=== PATIENT | female | born 1970 | race Caucasian/White ===

== ENCOUNTER 2018-12-21 00:53 | Inpatient (IN) | payer OTHER ==
[2018-12-21 00:53] VITALS: BMI 33.0
--- NOTE | 2018-12-21 01:10 | C.PDOC ---
History Of Present Illness Pt presents with abd pain, nausea and vomiting which started a few hours ago. No f/c. Pt found to be tachycardic, hypertensive. States she has not take her thyroid medication for about 3 weeks. Denies any chest pain or palpitations. Time Seen by Provider: 12/21/18 01:08 Chief Complaint (Nursing): Abdominal Pain History Per: Patient History/Exam Limitations: no limitations Onset/Duration Of Symptoms: Hrs Current Symptoms Are (Timing): Still Present Context: Other Severity: Moderate Pain Scale Rating Of: 5 Location Of Pain/Discomfort: Diffuse Radiation Of Pain To:: None Quality Of Discomfort: Dull, Cramping Associated Symptoms: Nausea, Vomiting. denies: Fever, Chills Exacerbating Factors: None Alleviating Factors: None Last Bowel Movement: Today Recent travel outside of the [place]: No Additional History Per: Family Abnormal Vaginal Bleeding: No Past Medical History Reviewed: Historical Data, Nursing Documentation, Vital Signs Vital Signs: Last Vital Signs Temp 97.6 F 12/21/18 01:04 Pulse 154 H 12/21/18 01:04 Resp 16 12/21/18 01:04 BP 186/131 H 12/21/18 01:04 Pulse Ox 96 12/21/18 01:04 - Medical History PMH: Anxiety, Asthma, Graves' Disease, HTN, Hyperthyroidism, Hypothyroidism Denies: Chronic Kidney Disease Family History: States: No Known Family Hx - Social History Hx Tobacco Use: No Hx Alcohol Use: No Hx Substance Use: No - Immunization History Hx Tetanus Toxoid Vaccination: No Hx Influenza Vaccination: No Hx Pneumococcal Vaccination: No Review Of Systems Constitutional: Negative for: Fever, Chills Eyes: Negative for: Vision Change ENT: Negative for: Throat Pain Cardiovascular: Negative for: Chest Pain, Palpitations Respiratory: Negative for: Shortness of Breath Gastrointestinal: Positive for: Nausea, Vomiting, Abdominal Pain Genitourinary: Negative for: Dysuria Musculoskeletal: Negative for: Back Pain Skin: Negative for: Rash Neurological: Negative for: Weakness Psych: Negative for: Anxiety Physical Exam - Physical Exam Appears: In Acute Distress Skin: Warm, Dry, Pale Head: Normacephalic Eye(s): bilateral: Normal Inspection Oral Mucosa: Moist Lips: Normal Appearing Neck: Trachea Midline, Supple Chest: Symmetrical Cardiovascular: Rhythm Regular (tachy) Respiratory: No Rales, No Rhonchi, No Wheezing Gastrointestinal/Abdominal: Bowel Sounds (tympanic), Soft, Tenderness, Distention, No Guarding, No Rebound Back: No CVA Tenderness Extremity: Normal ROM Extremity: Bilateral: Atraumatic Pulses: Left Dorsalis Pedis: Normal, Right Dorsalis Pedis: Normal Neurological/Psych: Oriented x3 Gait: Unable To Assess ED Course And Treatment - Laboratory Results Result Diagrams: 12/21/18 01:30 12/21/18 01:30 ECG: Interpreted By Me, Viewed By Me ECG Rhythm: Sinus Tachycardia (156), Nonspecific Changes O2 Sat by Pulse Oximetry: 96 Pulse Ox Interpretation: Normal - Radiology CXR: Interpreted by Me, Viewed By Me CXR Interpretation: No: Infiltrates, Fracture, Pnemothorax - CT Scan/US CT head Other Rad Studies (CT/US): Read By Radiologist, Radiology Report Reviewed CT/US Interpretation: CT SCAN OF THE BRAIN WITHOUT IV CONTRAST. CLINICAL INDICATION: Hypertensive urgency. TECHNIQUE: Axial and reformatted sagittal and coronal images of the brain obtained without IV contrast administration. Normal size of the ventricles and extra-axial spaces for the patient's age. Normal white matter tracts of the supratentorial brain. Normal basal ganglia and thalami. Normal brainstem. Normal cerebellum. There is no demonstrated extra-axial, intraparenchymal, or intraventricular hemorrhage. There are no findings of an acute ischemic infarction. Normal calvarium. There is no demon strated fracture. Normal soft tissue structures. Normal visualized paranasal sinuses. IMPRESSION: Normal unenhanced CT scan of the brain. . Electronically signed on Dec 21, 2018 4:14:05 AM EDT by: Tiesha Wright M.D., Certified by ABR, MSK, Neuroradiology. Progress Note: pt dropped bp after labetolol. No cp. Increased iv fluids. Glucagon given. continuing to monitor. Very hyperthyroid/storm. 2:47 bp improved 90/60. spoke with dr sadler,icu, will see the pt in the ed. 3:40 pt bright down and lost pulse cpr initiated. I've intubated her with 7.5 ett. one ep i. 3:46 ROSC parents at bedside. Critical Care Time - Critical Care Note Total Time (in mins): 30 Documented critical care: time excludes all time spent performing seperately billable procedures. Disposition Discussed With : Wally Nunez Comment: accepted the pt on his service and took over the care at 3AM Doctor Will See Patient In The: ED Counseled Patient/Family Regarding: Studies Performed, Diagnosis - Disposition Disposition: HOSPITALIZED Disposition Time: 01:10 Condition: CRITICAL - Clinical Impression Clinical Impression: Abdominal pain, Nausea, Thyrotoxicosis, Sinus tachycardia, Headache, Cardiac arrest Decision To Admit - Pt Status Changed To: Hospital Disposition Of: Inpatient - Admit Certification Admit to Inpatient:: After my assessment, the patient will require hospitalization for at least two midnights. This is because of the severity of symptoms shown, intensity of services needed, and/or the medical risk in this patient being treated as an outpatient. - InPatient: Physician Admission Certification:: After my assessment, the patient will require hospitalization for at least two midnights. This is because of the severity of symptoms shown, intensity of services needed, and/or the medical risk in this patient being treated as an outpatient. - . Bed Request Type: ICU Admitting Physician: Wally Nunez Patient Diagnosis: Abdominal pain, Nausea, Thyrotoxicosis, Sinus tachycardia, Headache, Cardiac arrest
[2018-12-21] MEDS ORDERED: Sodium Chloride 0.9% 1,000 ML IV ONE (01:11)
[2018-12-21] MEDS ORDERED: Sodium Chloride 0.9% 1,000 ML ONE (01:28)
[2018-12-21 01:35] LABS: BASO % 0.3 % (0.0-2.0); EOS # 0.1 K/uL (0.0-0.7); EOS % 1.1 % (0.0-4.0); HEMOGLOBIN 12.7 g/dL (11.0-16.0); LYMPH # 2.6 K/uL (1.0-4.3); LYMPH % 34.8 % (20.0-40.0); MEAN CELL VOLUME 87.6 fL (81.0-99.0); MEAN CORPUSCULAR HEMOGLOBIN 28.7 pg (27.0-31.0); MEAN CORPUSCULAR HGB CONC 32.7 g/dL (33.0-37.0); MONO # 0.6 K/uL (0.0-0.8); MONO % 8.3 % (0.0-10.0); NEUT # 4.1 K/uL (1.8-7.0); NEUT % 55.5 % (50.0-75.0); NRBC % 0.1 % (0.0-2.0); RBC 4.44 Mil/uL (3.80-5.20); RED CELL DISTRIBUTION WIDTH 14.6 % (11.5-14.5); WHITE BLOOD COUNT 7.4 K/uL (4.8-10.8)
[2018-12-21] MEDS ORDERED: Labetalol 25mg/5ml Syringe IVP STA (01:35)
[2018-12-21 01:43] LABS: INR 1.3
[2018-12-21] MEDS ORDERED: Labetalol 5mg/ml (4ml) ONE (01:44)
[2018-12-21 01:49] LABS: ALBUMIN 3.7 g/dL (3.5-5.0); ALT/SGPT 24 U/L (9-52); AST/SGOT 43 U/L (14-36); BLOOD UREA NITROGEN 8 mg/dL (7-17); CALCIUM 8.9 mg/dl (8.6-10.4); GFR NON-AFRICAN AMERICAN > 60; LIPASE 31 U/L (23-300)
[2018-12-21 01:59] LABS: URINE CLARITY Hazy (Clear); URINE COLOR YELLOW (YELLOW)
[2018-12-21 02:00] LABS: PH,URINE 5.5 (5.0-8.0); SQUAMOUS EPITHIAL 3 /hpf (0-5); URINE BILIRUBIN NEGATIVE (NEGATIVE); URINE BLOOD SMALL (NEGATIVE); URINE GLUCOSE (UA) NEGATIVE (Normal); URINE HYALINE CAST 4 /lpf (0-2); URINE LEUKOCYTE ESTERASE NEGATIVE Leu/uL (Negative); URINE PROTEIN NEGATIVE (NEGATIVE); URINE UROBILINOGEN 0.2 mg/dL (0.2-1.0)
[2018-12-21 02:01] LABS: B-TYPE NATRIURETIC PEPTIDE 459 pg/mL (0-450)
[2018-12-21] MEDS ORDERED: Glucagon Recombinant 1 mg Inj IV STA (02:22)
[2018-12-21] MEDS ORDERED: Glucagon Recombinant 1 mg Inj ONE (02:40)
--- NOTE | 2018-12-21 04:01 | CP.CCUPN ---
CCU Subjective - Physician Review Subjective (Free Text): 12/21/18 07:05 The patient was Seen and examined by me at the bedside during ICU round, Medical records reviewed and Management issues were discussed and formulated with the house staff. Events reviewed 46 Years old Female with PMHx of hypertension, hypothyroid and mini stroke in the past Who presented to the emergency room with complaint of nausea, vomiting and severe abdominal pain few hours before coming to the emergency room, as per family she was in her normal state of health when she went to sleep her only complaint was body ache and joint pain, when the EMS came in to see the patient her blood pressure was over 200 and upon arrival to the ER her pulse was 154 heart rate, BP of 186/31, she was afebrile, not tachypneic and adequately saturating. Upon arrival to the emergency room she was alert awake oriented x3, but she was uncomfortable and in acute distress Labs were significant for normal chemistry, normal renal function and very low third-generation TSH below 0.02 Patient had received 20 mg IV labetalol stat at 1:35 and 40 mg p.o. Indral stat at 1:37 and was sent Head CT scan that was negative for intracranial bleed ICU evaluation was done and patient was accepted to the intensive care unit While the patient in the process of getting transferred to the intensive care unit she became bradycardic heart rate slowed down and she became unresponsive, CODE BLUE was called patient received 1 round of epinephrine then regain return of spontaneous circulation in 3-4 minutes. She was orally intubated and mechanically ventilated Post intubation chest x-ray reviewed endotracheal tube is in good position, no infiltrate, no pneumothorax Patient was admitted to the intensive care unit hemodynamically stable, patient starting to wake up anxious pulling tubes and line and she received 2 mg Ativan In the ICU two more episodes of cardiac arrest were called also for 3-4 minutes then she regained pulse, during the cardiac arrest right femoral central line was placed under sterile techniques and right femoral A-line was attempted but was unsuccessful I performed stat bedside echo was done shows severely diminished LV function, RV is severely dilated raises a suspicious for acute pulmonary embolism, I did not appreciate any pericardial or pleural effusion With started the patient on IV heparin bolus then heparin drip Patient is very unstable to be sent for any further CT scans All labs was sent and repeated including, Trop, ABG and full Thyroid panel. Endocrine consult called and the case was discussed with Dr.Cam BAÑUELOS with severe metabolic acidosis high lactate and very low bicarb Administered 4 amp of sodium bicarb 1 amp of calcium gluconate 1 amp of dextrose PMHx- HTN, Hyperthyroidism, mini stroke PSHx-None Family Hx- Maternal grandfather had testicular cancer, grandmother had a CVA, Mother and several other family members have DM Social - Denies ever smoking, drinks socially, denies drug use Meds- Methimazole 10mg TID, Metoprolol 50mg ER Allergies- None PMD- Dr. Finch Further sister information obtained from the sister, the patient has cardiac condition diagnosed couple of years ago and she has not had been taking medication or have been regularly seeing her doctor also she was told at one point she seen need to see a pizza chef but she has not done that. Old echocardiogram reviewed, It does show normal ejection fraction, moderate pulmonary hypertension 12/25/18 13:00 CCU Objective - Vital Signs / Intake & Output Vital Signs (Last 4 hours): Vital Signs Temp Pulse Resp BP Pulse Ox 12/21/18 03:52 96 12/21/18 03:33 110 H 25 H 178/154 H 98 12/21/18 02:41 122 H 26 H 93/71 L 99 12/21/18 02:22 120 H 24 55/37 L 97 12/21/18 01:39 152 H 29 H 175/113 H 99 12/21/18 01:04 97.6 F 154 H 16 186/131 H 96 Intake and Output (Last 8hrs): Intake & Output 12/20/18 12/20/18 12/21/18 14:59 22:59 06:59 Weight 156 lb - Physical Exam Physical Exam Limitations: Positive for: Altered Mental Status, Clinical Condition Head: Positive for: Atraumatic, Normocephalic Pupils: Positive for: PERRL, Sluggish. Negative for: Non-Reactive, Pinpoint Extroacular Muscles: Positive for: EOMI. Negative for: Gaze Palsy Conjunctiva: Positive for: Normal. Negative for: Injected, Icteric Mouth: Positive for: Moist Mucous Membranes Neck: Positive for: Normal Range of Motion, Trachea Midline. Negative for: Meningeal Signs, MIDLINE TENDERNESS, Paraspinal Tenderness, JVD, Lymphadenopathy, Bruit, Other Respiratory/Chest: Positive for: Good Air Exchange. Negative for: Respiratory Distress, Accessory Muscle Use, Decreased Breath Sounds, Rales, Retracting, Rhonchi Cardiovascular: Positive for: Regular Rate and Rhythm, Normal S1, S2, Peripheal Pulses Present. Negative for: Murmurs, Irregular Rhythm Abdomen: Positive for: Normal Bowel Sounds. Negative for: Tenderness, Distention, Peritoneal Signs, Rebound, Guarding, McBurney's Point Tender Psychiatric: Negative for: Alert, Oriented x 3 - Patient Studies Lab Studies: Lab Studies 12/21/18 12/21/18 12/21/18 Range/Units 01:30 01:30 01:30 WBC 7.4 (4.8-10.8) K/uL RBC 4.44 (3.80-5.20) Mil/uL Hgb 12.7 (11.0-16.0) g/dL Hct 38.9 (34.0-47.0) % MCV 87.6 (81.0-99.0) fL MCH 28.7 (27.0-31.0) pg MCHC 32.7 L (33.0-37.0) g/dL RDW 14.6 H (11.5-14.5) % Plt Count 199 (130-400) K/uL MPV 9.0 (7.2-11.7) fL Neut % (Auto) 55.5 (50.0-75.0) % Lymph % (Auto) 34.8 (20.0-40.0) % Long % (Auto) 8.3 (0.0-10.0) % Eos % (Auto) 1.1 (0.0-4.0) % Baso % (Auto) 0.3 (0.0-2.0) % Neut # (Auto) 4.1 (1.8-7.0) K/uL Lymph # (Auto) 2.6 (1.0-4.3) K/uL Long # (Auto) 0.6 (0.0-0.8) K/uL Eos # (Auto) 0.1 (0.0-0.7) K/uL Baso # (Auto) 0.0 (0.0-0.2) K/uL PT 14.0 H (9.7-12.2) SECONDS INR 1.3 APTT 37 H (21-34) SECONDS Sodium 139 (132-148) mmol/L Potassium 3.9 (3.6-5.2) mmol/L Chloride 109 H (98-107) mmol/L Carbon Dioxide 18 L (22-30) mmol/L Anion Gap 17 (10-20) BUN 8 (7-17) mg/dL Creatinine 0.3 L (0.7-1.2) mg/dL Est GFR ( Amer) > 60 Est GFR (Non-Af Amer) > 60 Random Glucose 152 H D (65-105) mg/dL Calcium 8.9 (8.6-10.4) mg/dl Total Bilirubin 0.6 (0.2-1.3) mg/dL AST 43 H (14-36) U/L ALT 24 (9-52) U/L Alkaline Phosphatase 144 H (38-126) U/L Troponin I 0.0420 (0.00-0.120) ng/mL NT-Pro-B Natriuret Pep 459 H (0-450) pg/mL Total Protein 7.4 (6.3-8.3) g/dL Albumin 3.7 (3.5-5.0) g/dL Globulin 3.8 (2.2-3.9) gm/dL Albumin/Globulin Ratio 1.0 (1.0-2.1) Lipase 31 (23-300) U/L TSH 3rd Generation < 0.02 L (0.46-4.68) mIU/L Urine Color (YELLOW) Urine Clarity (Clear) Urine pH (5.0-8.0) Ur Specific [place] (1.003-1.030) Urine Protein (NEGATIVE) mg/dL Urine Glucose (UA) (Normal) mg/dL Urine Ketones (NEGATIVE) mg/dL Urine Blood (NEGATIVE) Urine Nitrate (NEGATIVE) Urine Bilirubin (NEGATIVE) Urine Urobilinogen (0.2-1.0) mg/dL Ur Leukocyte Esterase (Negative) Jyoti/uL Urine WBC (Auto) (0-5) /hpf Urine RBC (Auto) (0-3) /hpf Ur Squamous Epith Cells (0-5) /hpf Hyaline Casts (0-2) /lpf 12/21/18 Range/Units 01:11 WBC (4.8-10.8) K/uL RBC (3.80-5.20) Mil/uL Hgb (11.0-16.0) g/dL Hct (34.0-47.0) % MCV (81.0-99.0) fL MCH (27.0-31.0) pg MCHC (33.0-37.0) g/dL RDW (11.5-14.5) % Plt Count (130-400) K/uL MPV (7.2-11.7) fL Neut % (Auto) (50.0-75.0) % Lymph % (Auto) (20.0-40.0) % Long % (Auto) (0.0-10.0) % Eos % (Auto) (0.0-4.0) % Baso % (Auto) (0.0-2.0) % Neut # (Auto) (1.8-7.0) K/uL Lymph # (Auto) (1.0-4.3) K/uL Long # (Auto) (0.0-0.8) K/uL Eos # (Auto) (0.0-0.7) K/uL Baso # (Auto) (0.0-0.2) K/uL PT (9.7-12.2) SECONDS INR APTT (21-34) SECONDS Sodium (132-148) mmol/L Potassium (3.6-5.2) mmol/L Chloride (98-107) mmol/L Carbon Dioxide (22-30) mmol/L Anion Gap (10-20) BUN (7-17) mg/dL Creatinine (0.7-1.2) mg/dL Est GFR ( Amer) Est GFR (Non-Af Amer) Random Glucose (65-105) mg/dL Calcium (8.6-10.4) mg/dl Total Bilirubin (0.2-1.3) mg/dL AST (14-36) U/L ALT (9-52) U/L Alkaline Phosphatase (38-126) U/L Troponin I (0.00-0.120) ng/mL NT-Pro-B Natriuret Pep (0-450) pg/mL Total Protein (6.3-8.3) g/dL Albumin (3.5-5.0) g/dL Globulin (2.2-3.9) gm/dL Albumin/Globulin Ratio (1.0-2.1) Lipase (23-300) U/L TSH 3rd Generation (0.46-4.68) mIU/L Urine Color Yellow (YELLOW) Urine Clarity Hazy (Clear) Urine pH 5.5 (5.0-8.0) Ur Specific [place] 1.030 (1.003-1.030) Urine Protein Negative (NEGATIVE) mg/dL Urine Glucose (UA) Negative (Normal) mg/dL Urine Ketones Negative (NEGATIVE) mg/dL Urine Blood Small (NEGATIVE) Urine Nitrate Negative (NEGATIVE) Urine Bilirubin Negative (NEGATIVE) Urine Urobilinogen 0.2 (0.2-1.0) mg/dL Ur Leukocyte Esterase Negative (Negative) Jyoti/uL Urine WBC (Auto) 3 (0-5) /hpf Urine RBC (Auto) 4 H (0-3) /hpf Ur Squamous Epith Cells 3 (0-5) /hpf Hyaline Casts 4 (0-2) /lpf Laboratory Results - last 24 hr 12/21/18 12/21/18 12/21/18 01:11 01:30 01:30 WBC 7.4 RBC 4.44 Hgb 12.7 Hct 38.9 MCV 87.6 MCH 28.7 MCHC 32.7 L RDW 14.6 H Plt Count 199 MPV 9.0 Neut % (Auto) 55.5 Lymph % (Auto) 34.8 Long % (Auto) 8.3 Eos % (Auto) 1.1 Baso % (Auto) 0.3 Neut # (Auto) 4.1 Lymph # (Auto) 2.6 Long # (Auto) 0.6 Eos # (Auto) 0.1 Baso # (Auto) 0.0 PT 14.0 H INR 1.3 APTT 37 H Sodium Potassium Chloride Carbon Dioxide Anion Gap BUN Creatinine Est GFR ( Amer) Est GFR (Non-Af Amer) Random Glucose Calcium Total Bilirubin AST ALT Alkaline Phosphatase Troponin I NT-Pro-B Natriuret Pep Total Protein Albumin Globulin Albumin/Globulin Ratio Lipase TSH 3rd Generation Urine Color Yellow Urine Clarity Hazy Urine pH 5.5 Ur Specific [place] 1.030 Urine Protein Negative Urine Glucose (UA) Negative Urine Ketones Negative Urine Blood Small Urine Nitrate Negative Urine Bilirubin Negative Urine Urobilinogen 0.2 Ur Leukocyte Esterase Negative Urine WBC (Auto) 3 Urine RBC (Auto) 4 H Ur Squamous Epith Cells 3 Hyaline Casts 4 12/21/18 01:30 WBC RBC Hgb Hct MCV MCH MCHC RDW Plt Count MPV Neut % (Auto) Lymph % (Auto) Long % (Auto) Eos % (Auto) Baso % (Auto) Neut # (Auto) Lymph # (Auto) Long # (Auto) Eos # (Auto) Baso # (Auto) PT INR APTT Sodium 139 Potassium 3.9 Chloride 109 H Carbon Dioxide 18 L Anion Gap 17 BUN 8 Creatinine 0.3 L Est GFR ( Amer) > 60 Est GFR (Non-Af Amer) > 60 Random Glucose 152 H D Calcium 8.9 Total Bilirubin 0.6 AST 43 H ALT 24 Alkaline Phosphatase 144 H Troponin I 0.0420 NT-Pro-B Natriuret Pep 459 H Total Protein 7.4 Albumin 3.7 Globulin 3.8 Albumin/Globulin Ratio 1.0 Lipase 31 TSH 3rd Generation < 0.02 L Urine Color Urine Clarity Urine pH Ur Specific [place] Urine Protein Urine Glucose (UA) Urine Ketones Urine Blood Urine Nitrate Urine Bilirubin Urine Urobilinogen Ur Leukocyte Esterase Urine WBC (Auto) Urine RBC (Auto) Ur Squamous Epith Cells Hyaline Casts EKG/Cardiology Studies: Cardiology / EKG Studies 12/21/18 01:11 ELECTROCARDIOGRAM Stat Comment: Mode Of Transportation: BED Reason For Exam: chest pain Review of Systems - Review of Systems Systems not reviewed;Unavailable: Intubated Critical Care Progress Note - Ventilator Checklist Head of Bed 30 Degrees: Yes Daily Sedation Vacation: Yes Daily Assessment of Readiness to Wean: Yes Daily Spontaneous Breathing Trial: Yes PUD Prophalyxis: Yes DVT Prophylaxis: Yes Oral Care with Chlorhexidine Gluconate {CHG}: Yes - Extremities/Vascular Does the Patient have a Central Venous Catheter?: Yes Does the Patient need a Central Venous Catheter?: Yes Assessment/Plan (1) Cardiac arrest Current Visit: Yes Status: Acute Priority: High (2) Cardiomyopathy Current Visit: Yes Status: Acute Priority: High (3) Moderate pulmonary arterial systolic hypertension Current Visit: Yes Status: Acute Priority: High (4) Abdominal pain Current Visit: Yes Status: Acute Priority: High (5) Thyrotoxicosis Current Visit: Yes Status: Acute Priority: High
[2018-12-21] MEDS: Sodium Chloride 0.9% 1,000 ML IV SCH ×3 (04:20→16:17)
[2018-12-21] MEDS: Midazolam 50 mg/10 ml 100 MG in Dextrose 5% In Water 80 ML IV SCH (05:00)
[2018-12-21] MEDS ORDERED: Calcium Chloride 1000 mg/10 ml Syringe ONE (05:38)
[2018-12-21] MEDS ORDERED: Sodium Bicarbonate (8.4%) 50 Meq Syringe ONE (05:38)
[2018-12-21 06:16] LABS: ARTERIAL BLOOD GAS HCO3 3.7 mmol/L (21-28); ARTERIAL BLOOD GAS O2 SAT 100.6 % (95-98); ARTERIAL BLOOD GAS PCO2 28 mm/Hg (35-45); ARTERIAL BLOOD GAS PH 6.88 (7.35-7.45); ARTERIAL BLOOD GAS PO2 181 mm/Hg (80-100); ARTERIAL BLOOD GAS TCO2 6.1 mmol/L (22-28)
[2018-12-21] MEDS ORDERED: Sodium Bicarbonate (8.4%) 50 mEq Vial ONE (06:27)
[2018-12-21] MEDS ORDERED: Heparin25000 units/250ml 1/2NS 25,000 UNITS/250 ML BAG IV PRN (06:36)
[2018-12-21 06:48] LABS: BASO % 0.2 % (0.0-2.0); EOS % 0.2 % (0.0-4.0); LYMPH # 1.8 K/uL (1.0-4.3); LYMPH % 19.5 % (20.0-40.0); MEAN CORPUSCULAR HEMOGLOBIN 28.8 pg (27.0-31.0); MEAN PLATELET VOLUME 8.6 fL (7.2-11.7); MONO # 0.4 K/uL (0.0-0.8); NEUT # 6.9 K/uL (1.8-7.0); NEUT % 76.1 % (50.0-75.0); NRBC % 0.1 % (0.0-2.0); RBC 3.58 Mil/uL (3.80-5.20); RED CELL DISTRIBUTION WIDTH 14.9 % (11.5-14.5)
--- NOTE | 2018-12-21 06:58 | CP.PCM.CON ---
History of Present Illness - History of Present Illness History of Present Illness: Pgy3 IM Resident Endocrinology Consult note Reason for consult: suspect thyroid storm with TSH < 0.02 Please note history as per EMR as patient intubated on vent 48yo female PMHx HTN, Hyperthyroidism, TIA, anxiety, asthma and Grave's dx presented to the ER overnight with complaints of severe abdominal pain, nausea, and vomiting. As per EMR, patient had not taken home medications for ~3 weeks and is noncompliant. In the ER, patient's BP was elevated and patient was tachycardic with HR 154bpm. Patient was noted to have a TSH <0.02 on initial blood work and was given IV labetalol 20mg and PO Inderal 40mg in the ER. Patient's BP began to drop and she was given fluids and glucaogon. Patient was evaluated and accepted by MICU team, however prior to transfer, she started to become bradycardic and pulseless. Code Blue was called in the ER and patient was resuscitated and ROSC was achieved s/p 1 epi. Patient was intubated and placed on mechanical vent. When patient was transferred to the MICU, she had two more episodes of cardiac arrest that lasted 3-4 minutes of chest compressions. Patient received a total of 3 x epinephrine and 1 x atropine. ROSC was achieved and patient had R femoral line placed and was started on levophed gtt. Bedside echo revealed severely dilated RV raising suspicion for possible PE; patient bolused and started on heparin gtt. Patient also has severe hypokinesis of LV. ABG revealed severe metabolic acidosis, hyperkalemic and hypoglycemic. She rec eived 4amps biacrb, 1amp calcium gluconate, and 1amp D50. This AM patient seen and examined at bedside. Patient intubated on vent. Administered 100mg IV solucortef and 20mg methimazole. ROS unobtainbale secondary to clinical condition. PMHx: HTN, Hyperthyroidism, TIA, anxiety, asthma and Grave's dx PSurgHx: None FamHx: Maternal grandfather testicular ca, grandmother CVA, Mother and several other family members have DM SocHx: Denies tobacco and drug use, drinks EtOH socially Meds: Methimazole 10mg TID, Metoprolol 50mg ER qd, Xanax 0.5mg ALL: None PMD: Dr. Finch Review of Systems - Review of Systems Systems not reviewed;Unavailable: Intubated Past Patient History - Infectious Disease Hx of Infectious Diseases: None - Past Medical History & Family History Past Medical History?: Yes - Past Social History Smoking Status: Never Smoked - CARDIAC Hx Cardiac Disorders: Yes Hx Hypertension: Yes - PULMONARY Hx Respiratory Disorders: Yes Hx Asthma: Yes - NEUROLOGICAL Hx Neurological Disorder: No - HEENT Hx HEENT Problems: Yes Other/Comment: uses glasses for reading - RENAL Hx Chronic Kidney Disease: No - ENDOCRINE/METABOLIC Hx Endocrine Disorders: Yes Hx Hyperthyroidism: Yes Hx Hypothyroidism: Yes - HEMATOLOGICAL/ONCOLOGICAL Hx Blood Disorders: No - INTEGUMENTARY Hx Dermatological Problems: No - MUSCULOSKELETAL/RHEUMATOLOGICAL Hx Musculoskeletal Disorders: Yes Hx Falls: Yes - GASTROINTESTINAL Hx Gastrointestinal Disorders: No - GENITOURINARY/GYNECOLOGICAL Hx Genitourinary Disorders: No - PSYCHIATRIC Hx Psychophysiologic Disorder: Yes Hx Anxiety: Yes - SURGICAL HISTORY Hx Surgeries: No - ANESTHESIA Hx Anesthesia: No Hx Anesthesia Reactions: No Hx Malignant Hyperthermia: No Has any member of the family had a problem w/ anesthesia?: No Meds Allergies/Adverse Reactions: Allergies Allergy/AdvReac Type Severity Reaction Status Date / Time No Known Allergies Allergy Verified 04/16/16 12:57 - Medications Medications: Current Medications Sodium Chloride (Sodium Chloride 0.9%) 1,000 mls @ 100 mls/hr IV .Q10H [place] Midazolam HCl 100 mg/ Dextrose 100 mls @ 1.42 mls/hr IV .Q24H [place]; Protocol Norepinephrine Bitartrate 4 mg (/ Sodium Chloride) 254 mls @ 15.24 mls/hr IV .[id number] PRN; Protocol PRN Reason: TITRATE PER MD ORDER Heparin Sodium/Sodium Chloride (Heparin 30066 Units/250ml 1/2 Normal Saline) 2 5,000 units in 250 mls @ 12.737 mls/hr IV .[id number] PRN; Protocol PRN Reason: ADJUST RATE PER PROTOCOL Piperacillin Sod/Tazobactam Sod (Zosyn 3.375 Gm Iv Premix) 3.375 gm in 50 mls @ 100 mls/hr IVPB Q6H [place]; Protocol Vancomycin HCl 1,000 mg/ (Sodium Chloride) 250 mls @ 166.6 mls/hr IVPB Q12H [place]; Protocol Influenza Virus Vaccine (Flucelvax Quad [id number] Syr) 60 mcg IM .ONCE ONE Stop: 12/23/18 10:01 Methimazole (Tapazole) 20 mg PO Q8H [place] Physical Exam - Constitutional Appears: Other (ams) - Head Exam Head Exam: ATRAUMATIC, NORMAL INSPECTION, NORMOCEPHALIC - Eye Exam Eye Exam: Normal appearance. absent: Conjunctival injection, Scleral icterus - ENT Exam Additional comments: ET tube in place - Respiratory Exam Respiratory Exam: absent: Accessory Muscle Use, Rales, Rhonchi Additional comments: intubated on vent - Cardiovascular Exam Cardiovascular Exam: Tachycardia, +S1, +S2 - GI/Abdominal Exam GI & Abdominal Exam: Normal Bowel Sounds, Soft. absent: Firm - Rectal Exam Rectal Exam: Deferred - Extremities Exam Extremities exam: Positive for: normal inspection, pedal pulses present. Negative for: pedal edema - Neurological Exam Neurological exam: Altered - Skin Skin Exam: Dry, Intact, Warm Results - Vital Signs Recent Vital Signs: Last Vital Signs Temp 97 F L 12/21/18 04:44 Pulse 115 H 12/21/18 04:19 Resp 19 12/21/18 04:19 BP 121/88 12/21/18 04:19 Pulse Ox 100 12/21/18 04:19 - Labs Result Diagrams: 12/21/18 06:42 12/21/18 01:30 Labs: Laboratory Results - last 24 hr 12/21/18 12/21/18 12/21/18 01:11 01:30 01:30 WBC 7.4 RBC 4.44 Hgb 12.7 Hct 38.9 MCV 87.6 MCH 28.7 MCHC 32.7 L RDW 14.6 H Plt Count 199 MPV 9.0 Neut % (Auto) 55.5 Lymph % (Auto) 34.8 Dillon % (Auto) 8.3 Eos % (Auto) 1.1 Baso % (Auto) 0.3 Neut # (Auto) 4.1 Lymph # (Auto) 2.6 Dillon # (Auto) 0.6 Eos # (Auto) 0.1 Baso # (Auto) 0.0 PT 14.0 H INR 1.3 APTT 37 H Puncture Site pCO2 pO2 HCO3 ABG pH ABG Total CO2 ABG O2 Saturation ABG Base Excess Howard Test ABG Potassium A-a O2 Difference Respiratory Index Glucose Lactate Vent Mode Mechanical Rate FiO2 Tidal Volume PEEP Crit Value Called To Crit Value Called By Crit Value Read Back Blood Gas Notified Time Sodium Potassium Chloride Carbon Dioxide Anion Gap BUN Creatinine Est GFR ( Amer) Est GFR (Non-Af Amer) Random Glucose Calcium Total Bilirubin AST ALT Alkaline Phosphatase Troponin I NT-Pro-B Natriuret Pep Total Protein Albumin Globulin Albumin/Globulin Ratio Lipase TSH 3rd Generation Arterial Blood Potassium Urine Color Yellow Urine Clarity Hazy Urine pH 5.5 Ur Specific [place] 1.030 Urine Protein Negative Urine Glucose (UA) Negative Urine Ketones Negative Urine Blood Small Urine Nitrate Negative Urine Bilirubin Negative Urine Urobilinogen 0.2 Ur Leukocyte Esterase Negative Urine WBC (Auto) 3 Urine RBC (Auto) 4 H Ur Squamous Epith Cells 3 Hyaline Casts 4 12/21/18 12/21/18 01:30 06:12 WBC RBC Hgb Hct MCV MCH MCHC RDW Plt Count MPV Neut % (Auto) Lymph % (Auto) Dillon % (Auto) Eos % (Auto) Baso % (Auto) Neut # (Auto) Lymph # (Auto) Dillon # (Auto) Eos # (Auto) Baso # (Auto) PT INR APTT Puncture Site R fem by dr sadler pCO2 28 L pO2 181 H HCO3 3.7 L* ABG pH 6.88 L* ABG Total CO2 6.1 L ABG O2 Saturation 100.6 H ABG Base Excess -27.3 L Howard Test Na ABG Potassium 7.0 H* A-a O2 Difference 212.0 Respiratory Index 1.2 Glucose 55 L Lactate 11.6 H* Vent Mode Prvc Mechanical Rate 14 FiO2 60.0 Tidal Volume 400 PEEP 5 Crit Value Called To [facility] agriculture mechanic Crit Value Called By Gwendolyn reed rt Crit Value Read Back Y Blood Gas Notified Time 615 Sodium 139 140.0 Potassium 3.9 Chloride 109 H 118.0 H Carbon Dioxide 18 L Anion Gap 17 BUN 8 Creatinine 0.3 L Est GFR ( Amer) > 60 Est GFR (Non-Af Amer) > 60 Random Glucose 152 H D Calcium 8.9 Total Bilirubin 0.6 AST 43 H ALT 24 Alkaline Phosphatase 144 H Troponin I 0.0420 NT-Pro-B Natriuret Pep 459 H Total Protein 7.4 Albumin 3.7 Globulin 3.8 Albumin/Globulin Ratio 1.0 Lipase 31 TSH 3rd Generation < 0.02 L Arterial Blood Potassium 7.0 H* Urine Color Urine Clarity Urine pH Ur Specific [place] Urine Protein Urine Glucose (UA) Urine Ketones Urine Blood Urine Nitrate Urine Bilirubin Urine Urobilinogen Ur Leukocyte Esterase Urine WBC (Auto) Urine RBC (Auto) Ur Squamous Epith Cells Hyaline Casts Assessment & Plan - Assessment and Plan (Free Text) Assessment: 48yo female PMHx HTN, Hyperthyroidism, TIA, anxiety, asthma and Grave's dx presented to the ER overnight with complaints of severe abdominal pain, nausea, and vomiting. Patient had cardiac arrest x 3 and ROSC was achieved. Admitted to MICU for further management. Endocrinology consulted for possible thyroid storm. Plan: Overnight events, imaging, and blood work noted. TSH < 0.02 and free T4 5.67 this AM. Obtain total T4, thyroid Ig, serum cortisol on next AM blood work. Patient on tapazole 20q8 and solucortef 50q8. U/A reviewed. Monitor CBC, LFTs, ABG. Will f/u Echo final read. Will f/u cultures for possible underlying infx etiology. Correct electrolyte abnl. Continue management as per primary and MICU team. Endocrinology will continue to follow Discussed with Dr. Owen Crowell PGY3
--- NOTE | 2018-12-21 07:08 | CP.PCM.PN ---
<Roscoe Dawn M - Last Filed: 12/21/18 07:08> Subjective - Date & Time of Evaluation Date of Evaluation: 12/21/18 Time of Evaluation: 05:38 - Subjective Subjective: CODE BLUE NOTE 48 F w/ PMhx of non compliant hyperthyrodism presents w/ N/V. In ED pt is s/p code blue; currently in ICU. Code blue called approx 5:38. Per nursing staff patient had bradycardia to asytole prior to code blue. Compressions started immediately and 1 x epinephrine given. ROSC obtained after approximately 5 minutes of compressions. Patient bradycardia to asytole again approximately 5 minutes later. Compressions started immediately and 1 x epinephrine and atropine given. ROSC obtained after approximately 3 minutes of compressions. Patient tachycardiac in 120s initially, hypotensive. R femoral line place. ABG obtained. Patient acidotic, hypoglycemic on ABG; given 2 AMPs of bicarb & D50, 1L bolus fluid Levophed started for pressure support Thyroid abx/ panel ordered. JANN/CBC/ CMP. Stat Endo consult obtained, recs: Methamizole 20 mg Q8H. Heparin drip started for possible PE. Empiric abx vancomycin & zosyn started. Bedside unofficial echo reveals no pericardial effusion. Will need official one to confirm. F/u stat ECHO, XRAY, annetta duplex. Objective - Vital Signs/Intake and Output Vital Signs (last 24 hours): Temp Pulse Resp BP Pulse Ox 97 F L 115 H 19 121/88 100 12/21/18 04:44 12/21/18 04:19 12/21/18 04:19 12/21/18 04:19 12/21/18 04:19 - Medications Medications: Current Medications Sodium Chloride (Sodium Chloride 0.9%) 1,000 mls @ 100 mls/hr IV .Q10H [place] Midazolam HCl 100 mg/ Dextrose 100 mls @ 1.42 mls/hr IV .Q24H [place]; Protocol Norepinephrine Bitartrate 4 mg (/ Sodium Chloride) 254 mls @ 15.24 mls/hr IV .[id number] PRN; Protocol PRN Reason: TITRATE PER MD ORDER Heparin Sodium/Sodium Chloride (Heparin 93608 Units/250ml 1/2 Normal Saline) 25,000 units in 250 mls @ 12.737 mls/hr IV .[id number] PRN; Protocol PRN Reason: ADJUST RATE PER PROTOCOL Piperacillin Sod/Tazobactam Sod (Zosyn 3.375 Gm Iv Premix) 3.375 gm in 50 mls @ 100 mls/hr IVPB Q6H [place]; Protocol Vancomycin HCl 1,000 mg/ (Sodium Chloride) 250 mls @ 166.6 mls/hr IVPB Q12H [place]; Protocol Influenza Virus Vaccine (Flucelvax Quad [id number] Syr) 60 mcg IM .ONCE ONE Stop: 12/23/18 10:01 Methimazole (Tapazole) 20 mg PO Q8H [place] - Labs Labs: 12/21/18 01:30 12/21/18 01:30 PT 14.0 SECONDS (9.7-12.2) H 12/21/18 01:30 INR 1.3 12/21/18 01:30 APTT 37 SECONDS (21-34) H 12/21/18 01:30 <Sreedhar Kim P - Last Filed: 12/23/18 08:23> Objective - Vital Signs/Intake and Output Vital Signs (last 24 hours): Temp Pulse Resp BP Pulse Ox 98.3 F 112 H 22 176/101 H 100 12/23/18 08:00 12/23/18 08:00 12/23/18 08:00 12/23/18 08:00 12/23/18 08:00 Intake and Output: 12/23/18 12/23/18 06:59 18:59 Intake Total 1276.3 103.5 Output Total 920 21 Balance 356.3 82.5 - Medications Medications: Current Medications Acetaminophen (Tylenol 650mg/20.3ml Solution Ud) 650 mg GT Q6 PRN PRN Reason: Temperature Last Admin: 12/22/18 23:02 Dose: 650 mg Enoxaparin Sodium (Lovenox) [address] [facility] Hydrocortisone Sodium Succinate (Solu-Cortef) 50 mg IV Q8H [place] Last Admin: 12/23/18 06:16 Dose: 50 mg Midazolam HCl 100 mg/ Dextrose 100 mls @ 1.42 mls/hr IV .Q24H [place]; Protocol Last Admin: 12/23/18 03:52 Dose: Not Given Vancomycin HCl 1,000 mg/ (Sodium Chloride) 250 mls @ 166.6 mls/hr IVPB Q12H [place]; Protocol Last Admin: 12/23/18 05:48 Dose: 166.6 mls/hr Propofol (Diprivan) 1,000 mg in 100 mls @ 2.123 mls/hr IV .Q24H PRN; Protocol PRN Reason: TITRATE PER MD ORDER Last Titration: 12/23/18 06:00 Dose: 0 mcg/kg/min, 0 mls/hr Lactated Ringer's (Lactated Ringer's) 1,000 mls @ 60 mls/hr IV .[id number] [facility] Last Admin: 12/23/18 06:39 Dose: Not Given Dexmedetomidine HCl 200 mcg/ (Sodium Chloride) 50 mls @ 3.52 mls/hr IV TITR PRN; Protocol PRN Reason: Agitation Last Admin: 12/23/18 00:12 Dose: 0.2 mcg/kg/hr, 3.52 mls/hr Potassium Chloride (Potassium Chloride 20 Meq/100 Ml) 20 meq in 100 mls @ 50 mls/hr IVPB Q2H [facility] Stop: 12/23/18 15:44 Last Admin: 12/23/18 08:09 Dose: 50 mls/hr Piperacillin Sod/Tazobactam Sod (Zosyn 2.25 Gm Iv Premix) 2.25 gm in 50 mls @ 100 mls/hr IVPB Q6H [facility] Influenza Virus Vaccine (Flucelvax Quad [id number] Syr) 60 mcg IM .ONCE ONE Stop: 12/23/18 10:01 Labetalol HCl (Trandate) [address] [facility] Last Admin: 12/22/18 18:49 Dose: 100 mg Methimazole (Tapazole) [address] [facility] Last Admin: 12/23/18 03:51 Dose: 20 mg Pantoprazole Sodium (Protonix Inj) [address] [facility] Last Admin: 12/22/18 11:13 Dose: 40 mg - Labs Labs: 12/23/18 06:25 12/23/18 06:20 PT 19.6 SECONDS (9.7-12.2) H 12/22/18 08:55 INR 1.8 12/22/18 08:55 APTT 32 SECONDS (21-34) D 12/23/18 06:25 Attending/Attestation - Attestation I have personally seen and examined this patient.: Yes I have fully participated in the care of the patient.: Yes I have reviewed all pertinent clinical information, including history, physical exam and plan: Yes Notes (Text): 12/23/18 08:22 Responded to allyssa vaughn in icu conducted by Dr. Chan, agree with above except, bicarb 4 amps given as due to severe metabolic acidosis ph of 6.8.
[2018-12-21 07:09] LABS: HEMOGLOBIN 10.3 g/dL (11.0-16.0)
[2018-12-21 07:15] LABS: INR 1.7; PROTHROMBIN TIME 18.9 SECONDS (9.7-12.2)
[2018-12-21 07:18] LABS: FREE T4 5.67 ng/dL (0.78-2.19)
--- NOTE | 2018-12-21 07:25 | PCM.PROC ---
Procedures Attestation:: I certify that I have explained the specified Operation(s) or Procedure(s), risks, benefits and reasonable alternatives to the Patient and/or other person responsible. The opportunity was given to ask questions and all questions answered - Central Line Placement Right Femoral Triple Lumen Catheter Aseptic technique was employed throughout the procedure: Hand Hygiene done prior to procedure, Full sterile barriers (mask, hair cover, sterile gown, sterile gloves), Full body sterile drape, Chloraprep Antiseptic: 2 minute prep for Femoral CVP Time Out Performed: Yes Pt. Placed on Pulse Ox Monitor: Yes Central Line Prep: Chlorhexidine-Alcohol Combination Local Anesthesia Used: Lidocaine 1% Amount of Anesthesia Used (mls): 3 Ultrasound Used for Placement: Yes Central Line Lumen Inserted: triple Central Line Length: 20 cm Post Procedure: Sutured in Place, Good Blood Return, All Ports Aspirated, Flushed, Capped, Sterile Dressing Applied Secured by: Suture Post procedure dressing: Gauze, Clear vapor permeable, Chlorhexidine disc (Biopatch) Post Procedure X-Ray: Yes Patient Tolerated Procedure: Well Immediate Complications: None Additional Comments: Pt intubated, s/p code blue, hypotensive, 2 physician consent.
--- NOTE | 2018-12-21 07:41 | CP.CCUPN ---
<Moncho Karimi - Last Filed: 12/21/18 16:56> CCU Subjective - Physician Review Subjective (Free Text): ICU Progress Note for Dr. Johnson Pt seen and examined at bedside this am. Currently intubated and sedated. Unable to obtain further HPI or ROS due to current clinical status. S/p 3 episodes of cardiac arrest with ROSC achieved. CCU Objective - Vital Signs / Intake & Output Vital Signs (Last 4 hours): Vital Signs Temp Pulse Pulse Resp BP Pulse Ox 12/21/18 04:44 97 F L 12/21/18 04:19 115 H 19 121/88 100 12/21/18 04:17 96 12/21/18 04:17 115 H 17 12/21/18 04:01 112 H 12 117/88 100 12/21/18 03:58 0 L Intake and Output (Last 8hrs): Intake & Output 12/20/18 12/21/18 12/21/18 22:59 06:59 14:59 Weight 156 lb - Physical Exam Head: Positive for: Atraumatic, Normocephalic Pupils: Positive for: PERRL Conjunctiva: Positive for: Normal Mouth: Positive for: Moist Mucous Membranes Respiratory/Chest: Positive for: Clear to Auscultation, Good Air Exchange, Other (currently intubated on vent). Negative for: Respiratory Distress, Accessory Muscle Use, Wheezes, Rales, Rhonchi Cardiovascular: Positive for: Normal S1, S2, Tachycardic. Negative for: Murmurs, Rub, Gallop Abdomen: Positive for: Normal Bowel Sounds. Negative for: Tenderness, Distention, Mass/Organomegaly Upper Extremity: Positive for: Normal Inspection, NORMAL PULSES, Neurovascularly Intact, Capillary Refill < 2s. Negative for: Cyanosis, Edema Lower Extremity: Positive for: Normal Inspection, NORMAL PULSES, Neurovascularly Intact, Capillary Refill < 2 s. Negative for: Edema Neurological: Positive for: Other (currently intubated and sedated) Skin: Positive for: Warm, Dry, Normal Color Psychiatric: Positive for: Other (intubated and sedated) - Medications Active Medications: Active Medications Generic Name Dose Route Start Last Admin Trade Name Freq PRN Reason Stop Dose Admin Sodium Chloride 1,000 mls @ 100 mls/hr 12/21/18 04:15 Sodium Chloride 0.9% IV .Q10H [place] Midazolam HCl 100 mg/ Dextrose 100 mls @ 1.42 mls/hr 12/21/18 04:30 IV .Q24H [place] Protocol 0.02 MG/KG/HR Norepinephrine Bitartrate 4 mg 254 mls @ 15.24 mls/hr 12/21/18 06:14 / Sodium Chloride IV .[id number] PRN TITRATE PER MD ORDER Protocol 4 MCG/MIN Heparin Sodium/Sodium Chloride 25,000 units in 250 mls @ 12.737 mls/hr 12/21/18 06:36 Heparin 61005 Units/250ml 1/2 Normal Saline IV .[id number] PRN ADJUST RATE PER PROTOCOL Protocol 18 UNITS/KG/HR Piperacillin Sod/Tazobactam Sod 3.375 gm in 50 mls @ 100 mls/hr 12/21/18 06:45 Zosyn 3.375 Gm Iv Premix IVPB Q6H [facility] Protocol Vancomycin HCl 1,000 mg/ 250 mls @ 166.6 mls/hr 12/21/18 06:45 Sodium Chloride IVPB Q12H [facility] Protocol Influenza Virus Vaccine 60 mcg 12/23/18 10:00 Flucelvax Quad [id number] Syr IM 12/23/18 10:01 .ONCE ONE Methimazole 20 mg 12/21/18 06:30 Tapazole PO Q8H [facility] - Patient Studies Lab Studies: Lab Studies 12/21/18 12/21/18 12/21/18 Range/Units 06:42 06:42 06:42 WBC 9.0 (4.8-10.8) K/uL RBC 3.58 L (3.80-5.20) Mil/uL Hgb 10.3 L D (11.0-16.0) g/dL Hct 32.2 L (34.0-47.0) % MCV 90.0 D (81.0-99.0) fL MCH 28.8 (27.0-31.0) pg MCHC 32.0 L (33.0-37.0) g/dL RDW 14.9 H (11.5-14.5) % Plt Count 145 (130-400) K/uL MPV 8.6 (7.2-11.7) fL Neut % (Auto) 76.1 H (50.0-75.0) % Lymph % (Auto) 19.5 L (20.0-40.0) % [place] % (Auto) 4.0 (0.0-10.0) % Eos % (Auto) 0.2 (0.0-4.0) % Baso % (Auto) 0.2 (0.0-2.0) % Neut # (Auto) 6.9 (1.8-7.0) K/uL Lymph # (Auto) 1.8 (1.0-4.3) K/uL [place] # (Auto) 0.4 (0.0-0.8) K/uL Eos # (Auto) 0.0 (0.0-0.7) K/uL Baso # (Auto) 0.0 (0.0-0.2) K/uL PT 18.9 H (9.7-12.2) SECONDS INR 1.7 APTT 37 H (21-34) SECONDS Puncture Site pCO2 (35-45) mm/Hg pO2 (80-100) mm/Hg HCO3 (21-28) mmol/L ABG pH (7.35-7.45) ABG Total CO2 (22-28) mmol/L ABG O2 Saturation (95-98) % ABG Base Excess (-2.0-3.0) mmol/L Howard Test ABG Potassium (3.6-5.2) mmol/L A-a O2 Difference mm/Hg Respiratory Index Glucose (65-105) mg/dl Lactate (0.7-2.1) mmol/L Vent Mode Mechanical Rate FiO2 % Tidal Volume PEEP Crit Value Called To Crit Value Called By Crit Value Read Back Blood Gas Notified Time Sodium (132-148) mmol/L Potassium (3.6-5.2) mmol/L Chloride (98-107) mmol/L Carbon Dioxide (22-30) mmol/L Anion Gap (10-20) BUN (7-17) mg/dL Creatinine (0.7-1.2) mg/dL Est GFR ( Amer) Est GFR (Non-Af Amer) Random Glucose (65-105) mg/dL Calcium (8.6-10.4) mg/dl Total Bilirubin (0.2-1.3) mg/dL AST (14-36) U/L ALT (9-52) U/L Alkaline Phosphatase (38-126) U/L Troponin I (0.00-0.120) ng/mL NT-Pro-B Natriuret Pep (0-450) pg/mL Total Protein (6.3-8.3) g/dL Albumin (3.5-5.0) g/dL Globulin (2.2-3.9) gm/dL Albumin/Globulin Ratio (1.0-2.1) Lipase (23-300) U/L Free T4 5.67 H (0.78-2.19) ng/dL TSH 3rd Generation < 0.02 L (0.46-4.68) mIU/L Arterial Blood Potassium (3.6-5.2) mmol/L Urine Color (YELLOW) Urine Clarity (Clear) Urine pH (5.0-8.0) Ur Specific [place] (1.003-1.030) Urine Protein (NEGATIVE) mg/dL Urine Glucose (UA) (Normal) mg/dL Urine Ketones (NEGATIVE) mg/dL Urine Blood (NEGATIVE) Urine Nitrate (NEGATIVE) Urine Bilirubin (NEGATIVE) Urine Urobilinogen (0.2-1.0) mg/dL Ur Leukocyte Esterase (Negative) Jyoti/uL Urine WBC (Auto) (0-5) /hpf Urine RBC (Auto) (0-3) /hpf Ur Squamous Epith Cells (0-5) /hpf Hyaline Casts (0-2) /lpf 12/21/18 12/21/18 12/21/18 Range/Units 06:12 01:30 01:30 WBC (4.8-10.8) K/uL RBC (3.80-5.20) Mil/uL Hgb (11.0-16.0) g/dL Hct (34.0-47.0) % MCV (81.0-99.0) fL MCH (27.0-31.0) pg MCHC (33.0-37.0) g/dL RDW (11.5-14.5) % Plt Count (130-400) K/uL MPV (7.2-11.7) fL Neut % (Auto) (50.0-75.0) % Lymph % (Auto) (20.0-40.0) % [place] % (Auto) (0.0-10.0) % Eos % (Auto) (0.0-4.0) % Baso % (Auto) (0.0-2.0) % Neut # (Auto) (1.8-7.0) K/uL Lymph # (Auto) (1.0-4.3) K/uL [place] # (Auto) (0.0-0.8) K/uL Eos # (Auto) (0.0-0.7) K/uL Baso # (Auto) (0.0-0.2) K/uL PT 14.0 H (9.7-12.2) SECONDS INR 1.3 APTT 37 H (21-34) SECONDS Puncture Site R fem by dr sadler pCO2 28 L (35-45) mm/Hg pO2 181 H (80-100) mm/Hg HCO3 3.7 L* (21-28) mmol/L ABG pH 6.88 L* (7.35-7.45) ABG Total CO2 6.1 L (22-28) mmol/L ABG O2 Saturation 100.6 H (95-98) % ABG Base Excess -27.3 L (-2.0-3.0) mmol/L Howard Test Na ABG Potassium 7.0 H* (3.6-5.2) mmol/L A-a O2 Difference 212.0 mm/Hg Respiratory Index 1.2 Glucose 55 L (65-105) mg/dl Lactate 11.6 H* (0.7-2.1) mmol/L Vent Mode Prvc Mechanical Rate 14 FiO2 60.0 % Tidal Volume 400 PEEP 5 Crit Value Called To Katiana agricultural chemicals inspector Crit Value Called By Gwendolyn reed rt Crit Value Read Back Y Blood Gas Notified Time 615 Sodium 140.0 139 (132-148) mmol/L Potassium 3.9 (3.6-5.2) mmol/L Chloride 118.0 H 109 H (98-107) mmol/L Carbon Dioxide 18 L (22-30) mmol/L Anion Gap 17 (10-20) BUN 8 (7-17) mg/dL Creatinine 0.3 L (0.7-1.2) mg/dL Est GFR ( Amer) > 60 Est GFR (Non-Af Amer) > 60 Random Glucose 152 H D (65-105) mg/dL Calcium 8.9 (8.6-10.4) mg/dl Total Bilirubin 0.6 (0.2-1.3) mg/dL AST 43 H (14-36) U/L ALT 24 (9-52) U/L Alkaline Phosphatase 144 H (38-126) U/L Troponin I 0.0420 (0.00-0.120) ng/mL NT-Pro-B Natriuret Pep 459 H (0-450) pg/mL Total Protein 7.4 (6.3-8.3) g/dL Albumin 3.7 (3.5-5.0) g/dL Globulin 3.8 (2.2-3.9) gm/dL Albumin/Globulin Ratio 1.0 (1.0-2.1) Lipase 31 (23-300) U/L Free T4 (0.78-2.19) ng/dL TSH 3rd Generation < 0.02 L (0.46-4.68) mIU/L Arterial Blood Potassium 7.0 H* (3.6-5.2) mmol/L Urine Color (YELLOW) Urine Clarity (Clear) Urine pH (5.0-8.0) Ur Specific [place] (1.003-1.030) Urine Protein (NEGATIVE) mg/dL Urine Glucose (UA) (Normal) mg/dL Urine Ketones (NEGATIVE) mg/dL Urine Blood (NEGATIVE) Urine Nitrate (NEGATIVE) Urine Bilirubin (NEGATIVE) Urine Urobilinogen (0.2-1.0) mg/dL Ur Leukocyte Esterase (Negative) Jyoti/uL Urine WBC (Auto) (0-5) /hpf Urine RBC (Auto) (0-3) /hpf Ur Squamous Epith Cells (0-5) /hpf Hyaline Casts (0-2) /lpf 12/21/18 12/21/18 Range/Units 01:30 01:11 WBC 7.4 (4.8-10.8) K/uL RBC 4.44 (3.80-5.20) Mil/uL Hgb 12.7 (11.0-16.0) g/dL Hct 38.9 (34.0-47.0) % MCV 87.6 (81.0-99.0) fL MCH 28.7 (27.0-31.0) pg MCHC 32.7 L (33.0-37.0) g/dL RDW 14.6 H (11.5-14.5) % Plt Count 199 (130-400) K/uL MPV 9.0 (7.2-11.7) fL Neut % (Auto) 55.5 (50.0-75.0) % Lymph % (Auto) 34.8 (20.0-40.0) % [place] % (Auto) 8.3 (0.0-10.0) % Eos % (Auto) 1.1 (0.0-4.0) % Baso % (Auto) 0.3 (0.0-2.0) % Neut # (Auto) 4.1 (1.8-7.0) K/uL Lymph # (Auto) 2.6 (1.0-4.3) K/uL [place] # (Auto) 0.6 (0.0-0.8) K/uL Eos # (Auto) 0.1 (0.0-0.7) K/uL Baso # (Auto) 0.0 (0.0-0.2) K/uL PT (9.7-12.2) SECONDS INR APTT (21-34) SECONDS Puncture Site pCO2 (35-45) mm/Hg pO2 (80-100) mm/Hg HCO3 (21-28) mmol/L ABG pH (7.35-7.45) ABG Total CO2 (22-28) mmol/L ABG O2 Saturation (95-98) % ABG Base Excess (-2.0-3.0) mmol/L Howard Test ABG Potassium (3.6-5.2) mmol/L A-a O2 Difference mm/Hg Respiratory Index Glucose (65-105) mg/dl Lactate (0.7-2.1) mmol/L Vent Mode Mechanical Rate FiO2 % Tidal Volume PEEP Crit Value Called To Crit Value Called By Crit Value Read Back Blood Gas Notified Time Sodium (132-148) mmol/L Potassium (3.6-5.2) mmol/L Chloride (98-107) mmol/L Carbon Dioxide (22-30) mmol/L Anion Gap (10-20) BUN (7-17) mg/dL Creatinine (0.7-1.2) mg/dL Est GFR ( Amer) Est GFR (Non-Af Amer) Random Glucose (65-105) mg/dL Calcium (8.6-10.4) mg/dl Total Bilirubin (0.2-1.3) mg/dL AST (14-36) U/L ALT (9-52) U/L Alkaline Phosphatase (38-126) U/L Troponin I (0.00-0.120) ng/mL NT-Pro-B Natriuret Pep (0-450) pg/mL Total Protein (6.3-8.3) g/dL Albumin (3.5-5.0) g/dL Globulin (2.2-3.9) gm/dL Albumin/Globulin Ratio (1.0-2.1) Lipase (23-300) U/L Free T4 (0.78-2.19) ng/dL TSH 3rd Generation (0.46-4.68) mIU/L Arterial Blood Potassium (3.6-5.2) mmol/L Urine Color Yellow (YELLOW) Urine Clarity Hazy (Clear) Urine pH 5.5 (5.0-8.0) Ur Specific [place] 1.030 (1.003-1.030) Urine Protein Negative (NEGATIVE) mg/dL Urine Glucose (UA) Negative (Normal) mg/dL Urine Ketones Negative (NEGATIVE) mg/dL Urine Blood Small (NEGATIVE) Urine Nitrate Negative (NEGATIVE) Urine Bilirubin Negative (NEGATIVE) Urine Urobilinogen 0.2 (0.2-1.0) mg/dL Ur Leukocyte Esterase Negative (Negative) Jyoti/uL Urine WBC (Auto) 3 (0-5) /hpf Urine RBC (Auto) 4 H (0-3) /hpf Ur Squamous Epith Cells 3 (0-5) /hpf Hyaline Casts 4 (0-2) /lpf Laboratory Results - last 24 hr 12/21/18 12/21/18 12/21/18 01:11 01:30 01:30 WBC 7.4 RBC 4.44 Hgb 12.7 Hct 38.9 MCV 87.6 MCH 28.7 MCHC 32.7 L RDW 14.6 H Plt Count 199 MPV 9.0 Neut % (Auto) 55.5 Lymph % (Auto) 34.8 [place] % (Auto) 8.3 Eos % (Auto) 1.1 Baso % (Auto) 0.3 Neut # (Auto) 4.1 Lymph # (Auto) 2.6 [place] # (Auto) 0.6 Eos # (Auto) 0.1 Baso # (Auto) 0.0 PT 14.0 H INR 1.3 APTT 37 H Puncture Site pCO2 pO2 HCO3 ABG pH ABG Total CO2 ABG O2 Saturation ABG Base Excess Howard Test ABG Potassium A-a O2 Difference Respiratory Index Glucose Lactate Vent Mode Mechanical Rate FiO2 Tidal Volume PEEP Crit Value Called To Crit Value Called By Crit Value Read Back Blood Gas Notified Time Sodium Potassium Chloride Carbon Dioxide Anion Gap BUN Creatinine Est GFR ( Amer) Est GFR (Non-Af Amer) Random Glucose Calcium Total Bilirubin AST ALT Alkaline Phosphatase Troponin I NT-Pro-B Natriuret Pep Total Protein Albumin Globulin Albumin/Globulin Ratio Lipase Free T4 TSH 3rd Generation Arterial Blood Potassium Urine Color Yellow Urine Clarity Hazy Urine pH 5.5 Ur Specific [place] 1.030 Urine Protein Negative Urine Glucose (UA) Negative Urine Ketones Negative Urine Blood Small Urine Nitrate Negative Urine Bilirubin Negative Urine Urobilinogen 0.2 Ur Leukocyte Esterase Negative Urine WBC (Auto) 3 Urine RBC (Auto) 4 H Ur Squamous Epith Cells 3 Hyaline Casts 4 12/21/18 12/21/18 12/21/18 01:30 06:12 06:42 WBC RBC Hgb Hct MCV MCH MCHC RDW Plt Count MPV Neut % (Auto) Lymph % (Auto) [place] % (Auto) Eos % (Auto) Baso % (Auto) Neut # (Auto) Lymph # (Auto) [place] # (Auto) Eos # (Auto) Baso # (Auto) PT INR APTT Puncture Site R fem by dr sadler pCO2 28 L pO2 181 H HCO3 3.7 L* ABG pH 6.88 L* ABG Total CO2 6.1 L ABG O2 Saturation 100.6 H ABG Base Excess -27.3 L Howard Test Na ABG Potassium 7.0 H* A-a O2 Difference 212.0 Respiratory Index 1.2 Glucose 55 L Lactate 11.6 H* Vent Mode Prvc Mechanical Rate 14 FiO2 60.0 Tidal Volume 400 PEEP 5 Crit Value Called To Katiana agricultural chemicals inspector Crit Value Called By Gwendolyn reed rt Crit Value Read Back Y Blood Gas Notified Time 615 Sodium 139 140.0 Potassium 3.9 Chloride 109 H 118.0 H Carbon Dioxide 18 L Anion Gap 17 BUN 8 Creatinine 0.3 L Est GFR ( Amer) > 60 Est GFR (Non-Af Amer) > 60 Random Glucose 152 H D Calcium 8.9 Total Bilirubin 0.6 AST 43 H ALT 24 Alkaline Phosphatase 144 H Troponin I 0.0420 NT-Pro-B Natriuret Pep 459 H Total Protein 7.4 Albumin 3.7 Globulin 3.8 Albumin/Globulin Ratio 1.0 Lipase 31 Free T4 5.67 H TSH 3rd Generation < 0.02 L < 0.02 L Arterial Blood Potassium 7.0 H* Urine Color Urine Clarity Urine pH Ur Specific [place] Urine Protein Urine Glucose (UA) Urine Ketones Urine Blood Urine Nitrate Urine Bilirubin Urine Urobilinogen Ur Leukocyte Esterase Urine WBC (Auto) Urine RBC (Auto) Ur Squamous Epith Cells Hyaline Casts 12/21/18 12/21/18 06:42 06:42 WBC 9.0 RBC 3.58 L Hgb 10.3 L D Hct 32.2 L MCV 90.0 D MCH 28.8 MCHC 32.0 L RDW 14.9 H Plt Count 145 MPV 8.6 Neut % (Auto) 76.1 H Lymph % (Auto) 19.5 L [place] % (Auto) 4.0 Eos % (Auto) 0.2 Baso % (Auto) 0.2 Neut # (Auto) 6.9 Lymph # (Auto) 1.8 [place] # (Auto) 0.4 Eos # (Auto) 0.0 Baso # (Auto) 0.0 PT 18.9 H INR 1.7 APTT 37 H Puncture Site pCO2 pO2 HCO3 ABG pH ABG Total CO2 ABG O2 Saturation ABG Base Excess Howard Test ABG Potassium A-a O2 Difference Respiratory Index Glucose Lactate Vent Mode Mechanical Rate FiO2 Tidal Volume PEEP Crit Value Called To Crit Value Called By Crit Value Read Back Blood Gas Notified Time Sodium Potassium Chloride Carbon Dioxide Anion Gap BUN Creatinine Est GFR ( Amer) Est GFR (Non-Af Amer) Random Glucose Calcium Total Bilirubin AST ALT Alkaline Phosphatase Troponin I NT-Pro-B Natriuret Pep Total Protein Albumin Globulin Albumin/Globulin Ratio Lipase Free T4 TSH 3rd Generation Arterial Blood Potassium Urine Color Urine Clarity Urine pH Ur Specific [place] Urine Protein Urine Glucose (UA) Urine Ketones Urine Blood Urine Nitrate Urine Bilirubin Urine Urobilinogen Ur Leukocyte Esterase Urine WBC (Auto) Urine RBC (Auto) Ur Squamous Epith Cells Hyaline Casts EKG/Cardiology Studies: Cardiology / EKG Studies 12/21/18 01:11 ELECTROCARDIOGRAM Stat Comment: Mode Of Transportation: BED Reason For Exam: chest pain Review of Systems - Review of Systems Systems not reviewed;Unavailable: Intubated Assessment/Plan - Assessment and Plan (Free Text) Assessment: 48 y o female PMhx HTN, hyperthyroidism, TIA, anxiety, asthma, Grave's disease, who presented to the ED overnight with c/o severe abd pain, n/v. Per ED pt did not take home meds for about 3 wks, non-compliant with therapy. Pt presented hypertensive and tachycardic in ED, TSH < 0.02 on initial bloodwork, was given IV Labetalol and PO Inderal in the ED. Pt's bp began to drop after and was given fluids and IV glucagon. Pt was evaluated and accepted by ICU team at time, however prior to transfer, started to become bradycardic and went pulseless. Code Blue was called in ED and pt was resuscitated, ROSC achieved s/p epi x1. Pt subsequently was intubated and placed on mechanical vent. Pt had 2 additional episodes of cardiac arrest while being transferred to ICU that lasted 3-4 mins of chest compressions, received total epi x3 and atropine x1. ROSC achieved, pt had R femoral line placed, started on Levophed drip. Bedside echo revealed severely dilated R ventricle, raising suspicion for possible PE, pt was bolused and started on Heparin drip. Pt also has severe hypokinesis of L ventricle. Pt presented with severe metabolic acidosis, hyperkalemia and hypoglycemia. S/p 4 amps bicarb, 1 amp Ca gluconate, 1 amp D50. Currently being monitored in ICU, intubated on vent and sedated. Plan: Neuro: -Intubated and sedated on vent, Versed drip -Cont to monitor -Head CT on admission: Limited study given suboptimal pt positing. Streak artifact in posterior fossa limits eval at that level. No acute intracranial abnormality. Cardio: -Tachycardia persistent, hypotensive -Levophed drip d/c'd -Metoprolol 25 mg bid -Solu-cortef 50 mg tid -Official echo results pending -Hyperkalemia resolved s/p rx, cont to trend on labs -Venous duplex LE b/l neg for DVT -S/p placement of R femoral triple lumen catheter Pulm: -Currently on vent, sedated with Versed -Metabolic acidosis improving with most recent ABG -Recent CXR: Interval insertion NG tube. Tip positions satisfactory. ET tube tip clavicle level satisfactory. Cardiomegaly and mild pulmonary venous congestion - grossly similar. Possible layering L pleural effusions, small dense consolidation appreciated. -No leukocytosis -C/w Vanc/zosyn GI: -NPO -IVF at 100 cc/hr -Protonix -Unable to assess abd pain currently 2/2 pt's current mental status Heme: -H/H downtrending, may be 2/2 dilutional effect, cont to trend -No leukocytosis ID: -No leukocytosis -Vanco/zosyn -Blood cx pending Endo: -Hx Grave's disease, pt non-compliant with home meds x3 weeks -TSH < 0.02 on admission -R/o thyroid storm? as etiology of symptoms -Endocrinology (Dr. Weaver) consulted, recs appreciated -Methimazole 20 mg PO q8h, Solu-cortef 50 mg q8h -F/u final echo read -T4, thyroid Ig, serum cortisol ordered Renal: -BUN/Cr 20/1.1 -Cont to trend I's/O's PPX: -Protonix -Heparin, SCD Pt seen, examined with, and plan discussed with Dr. Johnson, attending physician. Moncho Karimi DO PGY-1, Economic Forecaster Pager #[phone] <Blaine Johnson - Last Filed: 12/21/18 17:38> CCU Subjective - Physician Review Critical Care Time Spent (in minutes): 60 CCU Objective - Vital Signs / Intake & Output Vital Signs (Last 4 hours): Vital Signs Temp Pulse Resp BP Pulse Ox 12/21/18 17:18 112 H 21 108/59 L 99 12/21/18 17:11 101.2 F H 12/21/18 17:03 114 H 22 103/59 L 100 12/21/18 17:00 114 H 22 100 12/21/18 16:48 115 H 22 112/61 100 12/21/18 16:33 116 H 22 107/59 L 100 12/21/18 16:18 116 H 22 102/62 100 12/21/18 16:11 101.4 F H 12/21/18 16:03 116 H 22 106/60 100 12/21/18 16:00 101.4 F H 116 H 22 100 12/21/18 15:48 115 H 21 111/60 100 12/21/18 15:33 117 H 22 106/59 L 100 12/21/18 15:18 117 H 22 103/57 L 100 12/21/18 15:03 116 H 22 103/59 L 100 12/21/18 15:00 116 H 22 100 12/21/18 14:48 116 H 22 105/56 L 100 12/21/18 14:33 116 H 22 107/58 L 100 12/21/18 14:18 117 H 22 102/56 L 100 12/21/18 14:03 114 H 19 116/65 100 12/21/18 14:00 124 H 23 99 12/21/18 13:48 117 H 23 126/77 100 Intake and Output (Last 8hrs): Intake & Output 12/21/18 12/21/18 12/21/18 06:59 14:59 22:59 Intake Total 208.8 1075.0 346.4 Output Total 10 685 350 Balance 198.8 390.0 -3.6 Weight 150 lb 6.4 oz Intake: IV 148 104 Intake, IV Amount 208.8 927.0 242.4 Right Distal Port Femoral 3.8 26.6 Right Femoral 200 100 Right Medial Port Femoral 118.3 33.8 Right Proximal Port 5 32.1 8.6 Femoral right AC 650 200 Output: Urine 10 685 350 Urethral (Perez) 10 685 350 Other: Voiding Method Indwelling Catheter - Medications Active Medications: Active Medications Generic Name Dose Route Start Last Admin Trade Name Freq PRN Reason Stop Dose Admin Acetaminophen 650 mg 12/21/18 15:53 12/21/18 16:11 Tylenol 650mg/20.3ml Solution Ud GT 650 mg Q6 PRN Administration Temperature Hydrocortisone Sodium Succinate 50 mg 12/21/18 15:00 12/21/18 15:34 Solu-Cortef IV 50 mg Q8H [place] Administration Sodium Chloride 1,000 mls @ 100 mls/hr 12/21/18 04:15 12/21/18 16:17 Sodium Chloride 0.9% IV 100 mls/hr .Q10H [place] Administration Midazolam HCl 100 mg/ Dextrose 100 mls @ 1.42 mls/hr 12/21/18 04:30 12/21/18 08:15 IV 0.06 mg/kg/hr .Q24H [place] 4.25 mls/hr Titration Protocol 0.02 MG/KG/HR Norepinephrine Bitartrate 4 mg 254 mls @ 15.24 mls/hr 12/21/18 06:14 12/21/18 10:39 / Sodium Chloride IV 0 mcg/min .[id number] PRN 0 mls/hr TITRATE PER MD ORDER Titration Protocol 4 MCG/MIN Heparin Sodium/Sodium Chloride 25,000 units in 250 mls @ 12.737 mls/hr 12/21/18 06:36 12/21/18 17:00 Heparin 43054 Units/250ml 1/2 Normal Saline IV 0 units/kg/hr .[id number] PRN 0 mls/hr ADJUST RATE PER PROTOCOL Titration Protocol 18 UNITS/KG/HR Piperacillin Sod/Tazobactam Sod 3.375 gm in 50 mls @ 100 mls/hr 12/21/18 06:45 12/21/18 13:34 Zosyn 3.375 Gm Iv Premix IVPB 100 mls/hr Q6H [place] Administration Protocol Vancomycin HCl 1,000 mg/ 250 mls @ 166.6 mls/hr 12/21/18 06:45 12/21/18 08:38 Sodium Chloride IVPB 166.6 mls/hr Q12H [place] Administration Protocol Propofol 1,000 mg in 100 mls @ 2.123 mls/hr 12/21/18 07:42 12/21/18 12:57 Diprivan IV 40 mcg/kg/min .Q24H PRN 16.982 mls/hr TITRATE PER MD ORDER Administration Protocol 5 MCG/KG/MIN Influenza Virus Vaccine 60 mcg 12/23/18 10:00 Flucelvax Quad [id number] Syr IM 12/23/18 10:01 .ONCE ONE Methimazole 20 mg 12/21/18 06:30 12/21/18 13:34 Tapazole PO 20 mg Q8H [place] Administration Metoprolol Tartrate 25 mg 12/21/18 18:00 Lopressor PO BID [place] Pantoprazole Sodium 40 mg 12/21/18 10:15 12/21/18 10:28 Protonix Inj IVP 40 mg DAILY [place] Administration - Patient Studies Lab Studies: Lab Studies 12/21/18 12/21/18 12/21/18 Range/Units 15:57 12:25 10:04 WBC (4.8-10.8) K/uL RBC (3.80-5.20) Mil/uL Hgb (11.0-16.0) g/dL Hct (34.0-47.0) % MCV (81.0-99.0) fL MCH (27.0-31.0) pg MCHC (33.0-37.0) g/dL RDW (11.5-14.5) % Plt Count (130-400) K/uL MPV (7.2-11.7) fL Neut % (Auto) (50.0-75.0) % Lymph % (Auto) (20.0-40.0) % [place] % (Auto) (0.0-10.0) % Eos % (Auto) (0.0-4.0) % Baso % (Auto) (0.0-2.0) % Neut # (Auto) (1.8-7.0) K/uL Lymph # (Auto) (1.0-4.3) K/uL [place] # (Auto) (0.0-0.8) K/uL Eos # (Auto) (0.0-0.7) K/uL Baso # (Auto) (0.0-0.2) K/uL PT (9.7-12.2) SECONDS INR APTT > 400 H* D (21-34) SECONDS Puncture Site pCO2 (35-45) mm/Hg pO2 (80-100) mm/Hg HCO3 (21-28) mmol/L ABG pH (7.35-7.45) ABG Total CO2 (22-28) mmol/L ABG O2 Saturation (95-98) % ABG Base Excess (-2.0-3.0) mmol/L Howard Test ABG Potassium (3.6-5.2) mmol/L A-a O2 Difference mm/Hg Respiratory Index Glucose (65-105) mg/dl Lactate (0.7-2.1) mmol/L Vent Mode Mechanical Rate FiO2 % Tidal Volume PEEP Crit Value Called To Crit Value Called By Crit Value Read Back Blood Gas Notified Time Sodium 145 (132-148) mmol/L Potassium 3.5 L (3.6-5.2) mmol/L Chloride 112 H (98-107) mmol/L Carbon Dioxide 26 (22-30) mmol/L Anion Gap 10 (10-20) BUN 20 H (7-17) mg/dL Creatinine 1.1 (0.7-1.2) mg/dL Est GFR ( Amer) > 60 Est GFR (Non-Af Amer) 53 Random Glucose 108 H D (65-105) mg/dL Calcium 8.8 (8.6-10.4) mg/dl Phosphorus (2.5-4.5) mg/dL Magnesium (1.6-2.3) mg/dL Total Bilirubin (0.2-1.3) mg/dL AST (14-36) U/L ALT (9-52) U/L Alkaline Phosphatase (38-126) U/L Total Creatine Kinase (30-135) U/L CK-MB (Mass) (0.0-3.38) ng/mL Troponin I (0.00-0.120) ng/mL NT-Pro-B Natriuret Pep (0-450) pg/mL Total Protein (6.3-8.3) g/dL Albumin (3.5-5.0) g/dL Globulin (2.2-3.9) gm/dL Albumin/Globulin Ratio (1.0-2.1) Lipase (23-300) U/L Free T4 (0.78-2.19) ng/dL Free T3 pg/mL > 22.80 H (2.77-5.27) pg/mL Total T3 (1.49-2.60) nmol/L TSH 3rd Generation (0.46-4.68) mIU/L Arterial Blood Potassium (3.6-5.2) mmol/L Urine Color (YELLOW) Urine Clarity (Clear) Urine pH (5.0-8.0) Ur Specific [place] (1.003-1.030) Urine Protein (NEGATIVE) mg/dL Urine Glucose (UA) (Normal) mg/dL Urine Ketones (NEGATIVE) mg/dL Urine Blood (NEGATIVE) Urine Nitrate (NEGATIVE) Urine Bilirubin (NEGATIVE) Urine Urobilinogen (0.2-1.0) mg/dL Ur Leukocyte Esterase (Negative) Jyoti/uL Urine WBC (Auto) (0-5) /hpf Urine RBC (Auto) (0-3) /hpf Ur Squamous Epith Cells (0-5) /hpf Hyaline Casts (0-2) /lpf Urine Opiates Screen (NEGATIVE) Urine Methadone Screen (NEGATIVE) Ur Barbiturates Screen (NEGATIVE) Ur Phencyclidine Scrn (NEGATIVE) Ur Amphetamines Screen (NEGATIVE) U Benzodiazepines Scrn (NEGATIVE) U Oth Cocaine Metabols (NEGATIVE) U Cannabinoids Screen (NEGATIVE) 12/21/18 12/21/18 12/21/18 Range/Units 09:22 08:20 06:42 WBC (4.8-10.8) K/uL RBC (3.80-5.20) Mil/uL Hgb (11.0-16.0) g/dL Hct (34.0-47.0) % MCV (81.0-99.0) fL MCH (27.0-31.0) pg MCHC (33.0-37.0) g/dL RDW (11.5-14.5) % Plt Count (130-400) K/uL MPV (7.2-11.7) fL Neut % (Auto) (50.0-75.0) % Lymph % (Auto) (20.0-40.0) % [place] % (Auto) (0.0-10.0) % Eos % (Auto) (0.0-4.0) % Baso % (Auto) (0.0-2.0) % Neut # (Auto) (1.8-7.0) K/uL Lymph # (Auto) (1.0-4.3) K/uL [place] # (Auto) (0.0-0.8) K/uL Eos # (Auto) (0.0-0.7) K/uL Baso # (Auto) (0.0-0.2) K/uL PT 18.9 H (9.7-12.2) SECONDS INR 1.7 APTT 37 H (21-34) SECONDS Puncture Site Rba pCO2 32 L (35-45) mm/Hg pO2 322 H (80-100) mm/Hg HCO3 18.8 L (21-28) mmol/L ABG pH 7.33 L (7.35-7.45) ABG Total CO2 17.9 L (22-28) mmol/L ABG O2 Saturation 100.2 H (95-98) % ABG Base Excess -7.9 L (-2.0-3.0) mmol/L Howard Test Na ABG Potassium 4.8 (3.6-5.2) mmol/L A-a O2 Difference 66.0 mm/Hg Respiratory Index 0.2 Glucose 137 H (65-105) mg/dl Lactate 8.3 H* (0.7-2.1) mmol/L Vent Mode Prvc Mechanical Rate 22 FiO2 60.0 % Tidal Volume 400 PEEP 5 Crit Value Called To Crit Value Called By Kalyn,lead electrical controls engineer Crit Value Read Back Y Blood Gas Notified Time 825 Sodium 145.0 (132-148) mmol/L Potassium (3.6-5.2) mmol/L Chloride 118.0 H (98-107) mmol/L Carbon Dioxide (22-30) mmol/L Anion Gap (10-20) BUN (7-17) mg/dL Creatinine (0.7-1.2) mg/dL Est GFR ( Amer) Est GFR (Non-Af Amer) Random Glucose (65-105) mg/dL Calcium (8.6-10.4) mg/dl Phosphorus (2.5-4.5) mg/dL Magnesium (1.6-2.3) mg/dL Total Bilirubin (0.2-1.3) mg/dL AST (14-36) U/L ALT (9-52) U/L Alkaline Phosphatase (38-126) U/L Total Creatine Kinase (30-135) U/L CK-MB (Mass) (0.0-3.38) ng/mL Troponin I (0.00-0.120) ng/mL NT-Pro-B Natriuret Pep (0-450) pg/mL Total Protein (6.3-8.3) g/dL Albumin (3.5-5.0) g/dL Globulin (2.2-3.9) gm/dL Albumin/Globulin Ratio (1.0-2.1) Lipase (23-300) U/L Free T4 (0.78-2.19) ng/dL Free T3 pg/mL (2.77-5.27) pg/mL Total T3 (1.49-2.60) nmol/L TSH 3rd Generation (0.46-4.68) mIU/L Arterial Blood Potassium 4.8 (3.6-5.2) mmol/L Urine Color (YELLOW) Urine Clarity (Clear) Urine pH (5.0-8.0) Ur Specific [place] (1.003-1.030) Urine Protein (NEGATIVE) mg/dL Urine Glucose (UA) (Normal) mg/dL Urine Ketones (NEGATIVE) mg/dL Urine Blood (NEGATIVE) Urine Nitrate (NEGATIVE) Urine Bilirubin (NEGATIVE) Urine Urobilinogen (0.2-1.0) mg/dL Ur Leukocyte Esterase (Negative) Jyoti/uL Urine WBC (Auto) (0-5) /hpf Urine RBC (Auto) (0-3) /hpf Ur Squamous Epith Cells (0-5) /hpf Hyaline Casts (0-2) /lpf Urine Opiates Screen Negative (NEGATIVE) Urine Methadone Screen Negative (NEGATIVE) Ur Barbiturates Screen Negative (NEGATIVE) Ur Phencyclidine Scrn Negative (NEGATIVE) Ur Amphetamines Screen Negative (NEGATIVE) U Benzodiazepines Scrn Negative (NEGATIVE) U Oth Cocaine Metabols Negative (NEGATIVE) U Cannabinoids Screen Negative (NEGATIVE) 12/21/18 12/21/18 12/21/18 Range/Units 06:42 06:42 06:42 WBC 9.0 (4.8-10.8) K/uL RBC 3.58 L (3.80-5.20) Mil/uL Hgb 10.3 L D (11.0-16.0) g/dL Hct 32.2 L (34.0-47.0) % MCV 90.0 D (81.0-99.0) fL MCH 28.8 (27.0-31.0) pg MCHC 32.0 L (33.0-37.0) g/dL RDW 14.9 H (11.5-14.5) % Plt Count 145 (130-400) K/uL MPV 8.6 (7.2-11.7) fL Neut % (Auto) 76.1 H (50.0-75.0) % Lymph % (Auto) 19.5 L (20.0-40.0) % [place] % (Auto) 4.0 (0.0-10.0) % Eos % (Auto) 0.2 (0.0-4.0) % Baso % (Auto) 0.2 (0.0-2.0) % Neut # (Auto) 6.9 (1.8-7.0) K/uL Lymph # (Auto) 1.8 (1.0-4.3) K/uL [place] # (Auto) 0.4 (0.0-0.8) K/uL Eos # (Auto) 0.0 (0.0-0.7) K/uL Baso # (Auto) 0.0 (0.0-0.2) K/uL PT (9.7-12.2) SECONDS INR APTT (21-34) SECONDS Puncture Site pCO2 (35-45) mm/Hg pO2 (80-100) mm/Hg HCO3 (21-28) mmol/L ABG pH (7.35-7.45) ABG Total CO2 (22-28) mmol/L ABG O2 Saturation (95-98) % ABG Base Excess (-2.0-3.0) mmol/L Howard Test ABG Potassium (3.6-5.2) mmol/L A-a O2 Difference mm/Hg Respiratory Index Glucose (65-105) mg/dl Lactate (0.7-2.1) mmol/L Vent Mode Mechanical Rate FiO2 % Tidal Volume PEEP Crit Value Called To Crit Value Called By Crit Value Read Back Blood Gas Notified Time Sodium 141 (132-148) mmol/L Potassium 6.8 H* D (3.6-5.2) mmol/L Chloride 107 (98-107) mmol/L Carbon Dioxide 23 (22-30) mmol/L Anion Gap 18 (10-20) BUN 10 (7-17) mg/dL Creatinine 0.8 (0.7-1.2) mg/dL Est GFR ( Amer) > 60 Est GFR (Non-Af Amer) > 60 Random Glucose 236 H D (65-105) mg/dL Calcium 9.2 (8.6-10.4) mg/dl Phosphorus 8.2 H (2.5-4.5) mg/dL Magnesium 1.9 (1.6-2.3) mg/dL Total Bilirubin 0.3 (0.2-1.3) mg/dL AST 51 H (14-36) U/L ALT 14 (9-52) U/L Alkaline Phosphatase 77 (38-126) U/L Total Creatine Kinase 50 (30-135) U/L CK-MB (Mass) 2.69 (0.0-3.38) ng/mL Troponin I 0.4120 H* (0.00-0.120) ng/mL NT-Pro-B Natriuret Pep (0-450) pg/mL Total Protein 4.0 L (6.3-8.3) g/dL Albumin 1.8 L D (3.5-5.0) g/dL Globulin 2.2 (2.2-3.9) gm/dL Albumin/Globulin Ratio 0.8 L (1.0-2.1) Lipase (23-300) U/L Free T4 5.67 H (0.78-2.19) ng/dL Free T3 pg/mL (2.77-5.27) pg/mL Total T3 8.15 H (1.49-2.60) nmol/L TSH 3rd Generation < 0.02 L < 0.02 L (0.46-4.68) mIU/L Arterial Blood Potassium (3.6-5.2) mmol/L Urine Color (YELLOW) Urine Clarity (Clear) Urine pH (5.0-8.0) Ur Specific [place] (1.003-1.030) Urine Protein (NEGATIVE) mg/dL Urine Glucose (UA) (Normal) mg/dL Urine Ketones (NEGATIVE) mg/dL Urine Blood (NEGATIVE) Urine Nitrate (NEGATIVE) Urine Bilirubin (NEGATIVE) Urine Urobilinogen (0.2-1.0) mg/dL Ur Leukocyte Esterase (Negative) Jyoti/uL Urine WBC (Auto) (0-5) /hpf Urine RBC (Auto) (0-3) /hpf Ur Squamous Epith Cells (0-5) /hpf Hyaline Casts (0-2) /lpf Urine Opiates Screen (NEGATIVE) Urine Methadone Screen (NEGATIVE) Ur Barbiturates Screen (NEGATIVE) Ur Phencyclidine Scrn (NEGATIVE) Ur Amphetamines Screen (NEGATIVE) U Benzodiazepines Scrn (NEGATIVE) U Oth Cocaine Metabols (NEGATIVE) U Cannabinoids Screen (NEGATIVE) 12/21/18 12/21/18 12/21/18 Range/Units 06:12 01:30 01:30 WBC (4.8-10.8) K/uL RBC (3.80-5.20) Mil/uL Hgb (11.0-16.0) g/dL Hct (34.0-47.0) % MCV (81.0-99.0) fL MCH (27.0-31.0) pg MCHC (33.0-37.0) g/dL RDW (11.5-14.5) % Plt Count (130-400) K/uL MPV (7.2-11.7) fL Neut % (Auto) (50.0-75.0) % Lymph % (Auto) (20.0-40.0) % [place] % (Auto) (0.0-10.0) % Eos % (Auto) (0.0-4.0) % Baso % (Auto) (0.0-2.0) % Neut # (Auto) (1.8-7.0) K/uL Lymph # (Auto) (1.0-4.3) K/uL [place] # (Auto) (0.0-0.8) K/uL Eos # (Auto) (0.0-0.7) K/uL Baso # (Auto) (0.0-0.2) K/uL PT 14.0 H (9.7-12.2) SECONDS INR 1.3 APTT 37 H (21-34) SECONDS Puncture Site R fem by dr sadler pCO2 28 L (35-45) mm/Hg pO2 181 H (80-100) mm/Hg HCO3 3.7 L* (21-28) mmol/L ABG pH 6.88 L* (7.35-7.45) ABG Total CO2 6.1 L (22-28) mmol/L ABG O2 Saturation 100.6 H (95-98) % ABG Base Excess -27.3 L (-2.0-3.0) mmol/L Howard Test Na ABG Potassium 7.0 H* (3.6-5.2) mmol/L A-a O2 Difference 212.0 mm/Hg Respiratory Index 1.2 Glucose 55 L (65-105) mg/dl Lactate 11.6 H* (0.7-2.1) mmol/L Vent Mode Prvc Mechanical Rate 14 FiO2 60.0 % Tidal Volume 400 PEEP 5 Crit Value Called To Katiana agricultural chemicals inspector Crit Value Called By Gwendolyn reed rt Crit Value Read Back Y Blood Gas Notified Time 615 Sodium 140.0 139 (132-148) mmol/L Potassium 3.9 (3.6-5.2) mmol/L Chloride 118.0 H 109 H (98-107) mmol/L Carbon Dioxide 18 L (22-30) mmol/L Anion Gap 17 (10-20) BUN 8 (7-17) mg/dL Creatinine 0.3 L (0.7-1.2) mg/dL Est GFR ( Amer) > 60 Est GFR (Non-Af Amer) > 60 Random Glucose 152 H D (65-105) mg/dL Calcium 8.9 (8.6-10.4) mg/dl Phosphorus (2.5-4.5) mg/dL Magnesium (1.6-2.3) mg/dL Total Bilirubin 0.6 (0.2-1.3) mg/dL AST 43 H (14-36) U/L ALT 24 (9-52) U/L Alkaline Phosphatase 144 H (38-126) U/L Total Creatine Kinase (30-135) U/L CK-MB (Mass) (0.0-3.38) ng/mL Troponin I 0.0420 (0.00-0.120) ng/mL NT-Pro-B Natriuret Pep 459 H (0-450) pg/mL Total Protein 7.4 (6.3-8.3) g/dL Albumin 3.7 (3.5-5.0) g/dL Globulin 3.8 (2.2-3.9) gm/dL Albumin/Globulin Ratio 1.0 (1.0-2.1) Lipase 31 (23-300) U/L Free T4 (0.78-2.19) ng/dL Free T3 pg/mL (2.77-5.27) pg/mL Total T3 (1.49-2.60) nmol/L TSH 3rd Generation < 0.02 L (0.46-4.68) mIU/L Arterial Blood Potassium 7.0 H* (3.6-5.2) mmol/L Urine Color (YELLOW) Urine Clarity (Clear) Urine pH (5.0-8.0) Ur Specific [place] (1.003-1.030) Urine Protein (NEGATIVE) mg/dL Urine Glucose (UA) (Normal) mg/dL Urine Ketones (NEGATIVE) mg/dL Urine Blood (NEGATIVE) Urine Nitrate (NEGATIVE) Urine Bilirubin (NEGATIVE) Urine Urobilinogen (0.2-1.0) mg/dL Ur Leukocyte Esterase (Negative) Jyoti/uL Urine WBC (Auto) (0-5) /hpf Urine RBC (Auto) (0-3) /hpf Ur Squamous Epith Cells (0-5) /hpf Hyaline Casts (0-2) /lpf Urine Opiates Screen (NEGATIVE) Urine Methadone Screen (NEGATIVE) Ur Barbiturates Screen (NEGATIVE) Ur Phencyclidine Scrn (NEGATIVE) Ur Amphetamines Screen (NEGATIVE) U Benzodiazepines Scrn (NEGATIVE) U Oth Cocaine Metabols (NEGATIVE) U Cannabinoids Screen (NEGATIVE) 12/21/18 12/21/18 Range/Units 01:30 01:11 WBC 7.4 (4.8-10.8) K/uL RBC 4.44 (3.80-5.20) Mil/uL Hgb 12.7 (11.0-16.0) g/dL Hct 38.9 (34.0-47.0) % MCV 87.6 (81.0-99.0) fL MCH 28.7 (27.0-31.0) pg MCHC 32.7 L (33.0-37.0) g/dL RDW 14.6 H (11.5-14.5) % Plt Count 199 (130-400) K/uL MPV 9.0 (7.2-11.7) fL Neut % (Auto) 55.5 (50.0-75.0) % Lymph % (Auto) 34.8 (20.0-40.0) % [place] % (Auto) 8.3 (0.0-10.0) % Eos % (Auto) 1.1 (0.0-4.0) % Baso % (Auto) 0.3 (0.0-2.0) % Neut # (Auto) 4.1 (1.8-7.0) K/uL Lymph # (Auto) 2.6 (1.0-4.3) K/uL [place] # (Auto) 0.6 (0.0-0.8) K/uL Eos # (Auto) 0.1 (0.0-0.7) K/uL Baso # (Auto) 0.0 (0.0-0.2) K/uL PT (9.7-12.2) SECONDS INR APTT (21-34) SECONDS Puncture Site pCO2 (35-45) mm/Hg pO2 (80-100) mm/Hg HCO3 (21-28) mmol/L ABG pH (7.35-7.45) ABG Total CO2 (22-28) mmol/L ABG O2 Saturation (95-98) % ABG Base Excess (-2.0-3.0) mmol/L Howard Test ABG Potassium (3.6-5.2) mmol/L A-a O2 Difference mm/Hg Respiratory Index Glucose (65-105) mg/dl Lactate (0.7-2.1) mmol/L Vent Mode Mechanical Rate FiO2 % Tidal Volume PEEP Crit Value Called To Crit Value Called By Crit Value Read Back Blood Gas Notified Time Sodium (132-148) mmol/L Potassium (3.6-5.2) mmol/L Chloride (98-107) mmol/L Carbon Dioxide (22-30) mmol/L Anion Gap (10-20) BUN (7-17) mg/dL Creatinine (0.7-1.2) mg/dL Est GFR ( Amer) Est GFR (Non-Af Amer) Random Glucose (65-105) mg/dL Calcium (8.6-10.4) mg/dl Phosphorus (2.5-4.5) mg/dL Magnesium (1.6-2.3) mg/dL Total Bilirubin (0.2-1.3) mg/dL AST (14-36) U/L ALT (9-52) U/L Alkaline Phosphatase (38-126) U/L Total Creatine Kinase (30-135) U/L CK-MB (Mass) (0.0-3.38) ng/mL Troponin I (0.00-0.120) ng/mL NT-Pro-B Natriuret Pep (0-450) pg/mL Total Protein (6.3-8.3) g/dL Albumin (3.5-5.0) g/dL Globulin (2.2-3.9) gm/dL Albumin/Globulin Ratio (1.0-2.1) Lipase (23-300) U/L Free T4 (0.78-2.19) ng/dL Free T3 pg/mL (2.77-5.27) pg/mL Total T3 (1.49-2.60) nmol/L TSH 3rd Generation (0.46-4.68) mIU/L Arterial Blood Potassium (3.6-5.2) mmol/L Urine Color Yellow (YELLOW) Urine Clarity Hazy (Clear) Urine pH 5.5 (5.0-8.0) Ur Specific [place] 1.030 (1.003-1.030) Urine Protein Negative (NEGATIVE) mg/dL Urine Glucose (UA) Negative (Normal) mg/dL Urine Ketones Negative (NEGATIVE) mg/dL Urine Blood Small (NEGATIVE) Urine Nitrate Negative (NEGATIVE) Urine Bilirubin Negative (NEGATIVE) Urine Urobilinogen 0.2 (0.2-1.0) mg/dL Ur Leukocyte Esterase Negative (Negative) Jyoti/uL Urine WBC (Auto) 3 (0-5) /hpf Urine RBC (Auto) 4 H (0-3) /hpf Ur Squamous Epith Cells 3 (0-5) /hpf Hyaline Casts 4 (0-2) /lpf Urine Opiates Screen (NEGATIVE) Urine Methadone Screen (NEGATIVE) Ur Barbiturates Screen (NEGATIVE) Ur Phencyclidine Scrn (NEGATIVE) Ur Amphetamines Screen (NEGATIVE) U Benzodiazepines Scrn (NEGATIVE) U Oth Cocaine Metabols (NEGATIVE) U Cannabinoids Screen (NEGATIVE) Laboratory Results - last 24 hr 12/21/18 12/21/18 12/21/18 01:11 01:30 01:30 WBC 7.4 RBC 4.44 Hgb 12.7 Hct 38.9 MCV 87.6 MCH 28.7 MCHC 32.7 L RDW 14.6 H Plt Count 199 MPV 9.0 Neut % (Auto) 55.5 Lymph % (Auto) 34.8 [place] % (Auto) 8.3 Eos % (Auto) 1.1 Baso % (Auto) 0.3 Neut # (Auto) 4.1 Lymph # (Auto) 2.6 [place] # (Auto) 0.6 Eos # (Auto) 0.1 Baso # (Auto) 0.0 PT 14.0 H INR 1.3 APTT 37 H Puncture Site pCO2 pO2 HCO3 ABG pH ABG Total CO2 ABG O2 Saturation ABG Base Excess Howard Test ABG Potassium A-a O2 Difference Respiratory Index Glucose Lactate Vent Mode Mechanical Rate FiO2 Tidal Volume PEEP Crit Value Called To Crit Value Called By Crit Value Read Back Blood Gas Notified Time Sodium Potassium Chloride Carbon Dioxide Anion Gap BUN Creatinine Est GFR ( Amer) Est GFR (Non-Af Amer) Random Glucose Calcium Phosphorus Magnesium Total Bilirubin AST ALT Alkaline Phosphatase Total Creatine Kinase CK-MB (Mass) Troponin I NT-Pro-B Natriuret Pep Total Protein Albumin Globulin Albumin/Globulin Ratio Lipase Free T4 Free T3 pg/mL Total T3 TSH 3rd Generation Arterial Blood Potassium Urine Color Yellow Urine Clarity Hazy Urine pH 5.5 Ur Specific [place] 1.030 Urine Protein Negative Urine Glucose (UA) Negative Urine Ketones Negative Urine Blood Small Urine Nitrate Negative Urine Bilirubin Negative Urine Urobilinogen 0.2 Ur Leukocyte Esterase Negative Urine WBC (Auto) 3 Urine RBC (Auto) 4 H Ur Squamous Epith Cells 3 Hyaline Casts 4 Urine Opiates Screen Urine Methadone Screen Ur Barbiturates Screen Ur Phencyclidine Scrn Ur Amphetamines Screen U Benzodiazepines Scrn U Oth Cocaine Metabols U Cannabinoids Screen 12/21/18 12/21/18 12/21/18 01:30 06:12 06:42 WBC RBC Hgb Hct MCV MCH MCHC RDW Plt Count MPV Neut % (Auto) Lymph % (Auto) [place] % (Auto) Eos % (Auto) Baso % (Auto) Neut # (Auto) Lymph # (Auto) [place] # (Auto) Eos # (Auto) Baso # (Auto) PT INR APTT Puncture Site R fem by dr sadler pCO2 28 L pO2 181 H HCO3 3.7 L* ABG pH 6.88 L* ABG Total CO2 6.1 L ABG O2 Saturation 100.6 H ABG Base Excess -27.3 L Howard Test Na ABG Potassium 7.0 H* A-a O2 Difference 212.0 Respiratory Index 1.2 Glucose 55 L Lactate 11.6 H* Vent Mode Prvc Mechanical Rate 14 FiO2 60.0 Tidal Volume 400 PEEP 5 Crit Value Called To Katiana agricultural chemicals inspector Crit Value Called By Gwendolyn reed rt Crit Value Read Back Y Blood Gas Notified Time 615 Sodium 139 140.0 Potassium 3.9 Chloride 109 H 118.0 H Carbon Dioxide 18 L Anion Gap 17 BUN 8 Creatinine 0.3 L Est GFR ( Amer) > 60 Est GFR (Non-Af Amer) > 60 Random Glucose 152 H D Calcium 8.9 Phosphorus Magnesium Total Bilirubin 0.6 AST 43 H ALT 24 Alkaline Phosphatase 144 H Total Creatine Kinase CK-MB (Mass) Troponin I 0.0420 NT-Pro-B Natriuret Pep 459 H Total Protein 7.4 Albumin 3.7 Globulin 3.8 Albumin/Globulin Ratio 1.0 Lipase 31 Free T4 5.67 H Free T3 pg/mL Total T3 TSH 3rd Generation < 0.02 L < 0.02 L Arterial Blood Potassium 7.0 H* Urine Color Urine Clarity Urine pH Ur Specific [place] Urine Protein Urine Glucose (UA) Urine Ketones Urine Blood Urine Nitrate Urine Bilirubin Urine Urobilinogen Ur Leukocyte Esterase Urine WBC (Auto) Urine RBC (Auto) Ur Squamous Epith Cells Hyaline Casts Urine Opiates Screen Urine Methadone Screen Ur Barbiturates Screen Ur Phencyclidine Scrn Ur Amphetamines Screen U Benzodiazepines Scrn U Oth Cocaine Metabols U Cannabinoids Screen 12/21/18 12/21/18 12/21/18 06:42 06:42 06:42 WBC 9.0 RBC 3.58 L Hgb 10.3 L D Hct 32.2 L MCV 90.0 D MCH 28.8 MCHC 32.0 L RDW 14.9 H Plt Count 145 MPV 8.6 Neut % (Auto) 76.1 H Lymph % (Auto) 19.5 L [place] % (Auto) 4.0 Eos % (Auto) 0.2 Baso % (Auto) 0.2 Neut # (Auto) 6.9 Lymph # (Auto) 1.8 [place] # (Auto) 0.4 Eos # (Auto) 0.0 Baso # (Auto) 0.0 PT 18.9 H INR 1.7 APTT 37 H Puncture Site pCO2 pO2 HCO3 ABG pH ABG Total CO2 ABG O2 Saturation ABG Base Excess Howard Test ABG Potassium A-a O2 Difference Respiratory Index Glucose Lactate Vent Mode Mechanical Rate FiO2 Tidal Volume PEEP Crit Value Called To Crit Value Called By Crit Value Read Back Blood Gas Notified Time Sodium 141 Potassium 6.8 H* D Chloride 107 Carbon Dioxide 23 Anion Gap 18 BUN 10 Creatinine 0.8 Est GFR ( Amer) > 60 Est GFR (Non-Af Amer) > 60 Random Glucose 236 H D Calcium 9.2 Phosphorus 8.2 H Magnesium 1.9 Total Bilirubin 0.3 AST 51 H ALT 14 Alkaline Phosphatase 77 Total Creatine Kinase 50 CK-MB (Mass) 2.69 Troponin I 0.4120 H* NT-Pro-B Natriuret Pep Total Protein 4.0 L Albumin 1.8 L D Globulin 2.2 Albumin/Globulin Ratio 0.8 L Lipase Free T4 Free T3 pg/mL Total T3 8.15 H TSH 3rd Generation < 0.02 L Arterial Blood Potassium Urine Color Urine Clarity Urine pH Ur Specific [place] Urine Protein Urine Glucose (UA) Urine Ketones Urine Blood Urine Nitrate Urine Bilirubin Urine Urobilinogen Ur Leukocyte Esterase Urine WBC (Auto) Urine RBC (Auto) Ur Squamous Epith Cells Hyaline Casts Urine Opiates Screen Urine Methadone Screen Ur Barbiturates Screen Ur Phencyclidine Scrn Ur Amphetamines Screen U Benzodiazepines Scrn U Oth Cocaine Metabols U Cannabinoids Screen 12/21/18 12/21/18 12/21/18 08:20 09:22 10:04 WBC RBC Hgb Hct MCV MCH MCHC RDW Plt Count MPV Neut % (Auto) Lymph % (Auto) [place] % (Auto) Eos % (Auto) Baso % (Auto) Neut # (Auto) Lymph # (Auto) [place] # (Auto) Eos # (Auto) Baso # (Auto) PT INR APTT Puncture Site Rba pCO2 32 L pO2 322 H HCO3 18.8 L ABG pH 7.33 L ABG Total CO2 17.9 L ABG O2 Saturation 100.2 H ABG Base Excess -7.9 L Howard Test Na ABG Potassium 4.8 A-a O2 Difference 66.0 Respiratory Index 0.2 Glucose 137 H Lactate 8.3 H* Vent Mode Prvc Mechanical Rate 22 FiO2 60.0 Tidal Volume 400 PEEP 5 Crit Value Called To Crit Value Called By Kalyn,lead electrical controls engineer Crit Value Read Back Y Blood Gas Notified Time 825 Sodium 145.0 Potassium Chloride 118.0 H Carbon Dioxide Anion Gap BUN Creatinine Est GFR ( Amer) Est GFR (Non-Af Amer) Random Glucose Calcium Phosphorus Magnesium Total Bilirubin AST ALT Alkaline Phosphatase Total Creatine Kinase CK-MB (Mass) Troponin I NT-Pro-B Natriuret Pep Total Protein Albumin Globulin Albumin/Globulin Ratio Lipase Free T4 Free T3 pg/mL > 22.80 H Total T3 TSH 3rd Generation Arterial Blood Potassium 4.8 Urine Color Urine Clarity Urine pH Ur Specific [place] Urine Protein Urine Glucose (UA) Urine Ketones Urine Blood Urine Nitrate Urine Bilirubin Urine Urobilinogen Ur Leukocyte Esterase Urine WBC (Auto) Urine RBC (Auto) Ur Squamous Epith Cells Hyaline Casts Urine Opiates Screen Negative Urine Methadone Screen Negative Ur Barbiturates Screen Negative Ur Phencyclidine Scrn Negative Ur Amphetamines Screen Negative U Benzodiazepines Scrn Negative U Oth Cocaine Metabols Negative U Cannabinoids Screen Negative 12/21/18 12/21/18 12:25 15:57 WBC RBC Hgb Hct MCV MCH MCHC RDW Plt Count MPV Neut % (Auto) Lymph % (Auto) [place] % (Auto) Eos % (Auto) Baso % (Auto) Neut # (Auto) Lymph # (Auto) [place] # (Auto) Eos # (Auto) Baso # (Auto) PT INR APTT > 400 H* D Puncture Site pCO2 pO2 HCO3 ABG pH ABG Total CO2 ABG O2 Saturation ABG Base Excess Howard Test ABG Potassium A-a O2 Difference Respiratory Index Glucose Lactate Vent Mode Mechanical Rate FiO2 Tidal Volume PEEP Crit Value Called To Crit Value Called By Crit Value Read Back Blood Gas Notified Time Sodium 145 Potassium 3.5 L Chloride 112 H Carbon Dioxide 26 Anion Gap 10 BUN 20 H Creatinine 1.1 Est GFR ( Amer) > 60 Est GFR (Non-Af Amer) 53 Random Glucose 108 H D Calcium 8.8 Phosphorus Magnesium Total Bilirubin AST ALT Alkaline Phosphatase Total Creatine Kinase CK-MB (Mass) Troponin I NT-Pro-B Natriuret Pep Total Protein Albumin Globulin Albumin/Globulin Ratio Lipase Free T4 Free T3 pg/mL Total T3 TSH 3rd Generation Arterial Blood Potassium Urine Color Urine Clarity Urine pH Ur Specific [place] Urine Protein Urine Glucose (UA) Urine Ketones Urine Blood Urine Nitrate Urine Bilirubin Urine Urobilinogen Ur Leukocyte Esterase Urine WBC (Auto) Urine RBC (Auto) Ur Squamous Epith Cells Hyaline Casts Urine Opiates Screen Urine Methadone Screen Ur Barbiturates Screen Ur Phencyclidine Scrn Ur Amphetamines Screen U Benzodiazepines Scrn U Oth Cocaine Metabols U Cannabinoids Screen Radiology Impressions: Radiology Impressions Chest X-Ray 12/21/18 01:11 IMPRESSION: Minimal-mild pulmonary venous congestion. Mild cardiomegaly. Comments: No preliminary ER impression at this time. Head CT 12/21/18 02:59 IMPRESSION: Limited study given suboptimal patient positioning. Streak artifact in the posterior fossa limits evaluation at that level. No acute intracranial abnormality. If symptoms persists, consider correlation with MRI. A preliminary report was generated at 4:14 a.m. on 12/21/[address] Tiesha Wright from [employer]. Chest X-Ray 12/21/18 03:51 IMPRESSION: Interval insertion endotracheal tube-tip in right mainstem bronchus-subsequently noted a follow-up study to have been retracted approximately Cardiomegaly and mild pulmonary venous congestion suggested. Pulmonary venous congestion appears increased compared the prior study. Chest X-Ray 12/21/18 03:51 IMPRESSION: Interval repositioning of the endotracheal tube-as above now satisfactory. The current mild pulmonary venous congestion is less now than before. Chest X-Ray 12/21/18 06:21 IMPRESSION: Interval insertion nasogastric tube. Tip positions satisfactory. Endotracheal tube tip clavicle level satisfactory. Cardiomegaly and mild pulmonary venous congestion-grossly similar. Possible layering left pleural effusions small dense consolidation appreciated. Duplex Scan Lower Extremity Artery 12/21/18 06:37 IMPRESSION: No evidence of deep or superficial vein thrombosis of bilateral lower extremities, as visualized. EKG/Cardiology Studies: Cardiology / EKG Studies 12/21/18 01:11 ELECTROCARDIOGRAM Stat Comment: Mode Of Transportation: BED Reason For Exam: chest pain 12/21/18 09:19 EKG [ELECTROCARDIOGRAM] Stat Comment: Mode Of Transportation: Reason For Exam: s/p cardiac arrest Attending/Attestation - Attestation I have personally seen and examined this patient.: Yes I have fully participated in the care of the patient.: Yes I have reviewed all pertinent clinical information: Yes Notes (Text): 12/21/18 17:36 Patient seen and examined in the intensive care unit. Case discussed with housestaff and overnight workers compensation claims analyst at length Case discussed with family at length 48-year-old female admitted status post cardiac arrest x2 and on ventilatory support with tachycardia and extremely low TSH Patient noncompliant with medicines Patient started on hydrocortisone and methimazole IV antibiotics Blood culture and sensitivity Fluid resuscitation Ventilatory support and sedation Endocrine evaluation Echocardiogram consistent with low ejection fraction Cardiology evaluation
[2018-12-21] MEDS: Propofol 10 mg/ml 1,000 MG/100 ML VIAL IV PRN ×3 (07:50→18:35)
--- NOTE | 2018-12-21 08:06 | RAD ---
Date of service: 12/21/2018 HISTORY: post intubation bed 4 COMPARISON: 12/21/2018 0354 hr FINDINGS: LUNGS: The endotracheal tube tip in the right mainstem bronchus has been retracted-now the tip is approximately 2 cm cephalad to the michael-at the clavicle. This is satisfactory No consolidation. Extrinsic cardiac devices obscure a left lung base PLEURA: No significant pleural effusion identified, no pneumothorax apparent. CARDIOVASCULAR: No aortic atherosclerotic calcification present. Mild cardiomegaly suggested. Mild pulmonary venous congestion suspect. Defibrillator device in place. OSSEOUS STRUCTURES: No significant abnormalities. VISUALIZED UPPER ABDOMEN: Normal. OTHER FINDINGS: None. IMPRESSION: Interval repositioning of the endotracheal tube-as above now satisfactory. The current mild pulmonary venous congestion is less now than before.
--- NOTE | 2018-12-21 08:06 | CT ---
Date of service: 12/21/2018 PROCEDURE: CT HEAD WITHOUT CONTRAST. HISTORY: headache, hypertensive emergency COMPARISON: None available. TECHNIQUE: Axial computed tomography images were obtained through the head/brain without intravenous contrast. Radiation dose: Total exam DLP = 2660.51 mGy-cm. This CT exam was performed using one or more of the following dose reduction techniques: Automated exposure control, adjustment of the mA and/or kV according to patient size, and/or use of iterative reconstruction technique. FINDINGS: HEMORRHAGE: No intracranial hemorrhage. BRAIN: No mass effect or edema. No atrophy or chronic microvascular ischemic changes. VENTRICLES: Unremarkable. No hydrocephalus. CALVARIUM: Unremarkable. PARANASAL SINUSES: Mild mucosal thickening of the frontal sinus. MASTOID AIR CELLS: Unremarkable as visualized. No inflammatory changes. OTHER FINDINGS: Limited study given suboptimal patient positioning. Streak artifact in the posterior fossa limits evaluation at that level. IMPRESSION: Limited study given suboptimal patient positioning. Streak artifact in the posterior fossa limits evaluation at that level. No acute intracranial abnormality. If symptoms persists, consider correlation with MRI. A preliminary report was generated at 4:14 a.m. on 12/21/[address] Tiesha Wright from [employer].
--- NOTE | 2018-12-21 08:10 | RAD ---
Date of service: 12/21/2018 PROCEDURE: CHEST RADIOGRAPH, 1 VIEW HISTORY: post intubation COMPARISON: 12/21/2018 at 0137 hr FINDINGS: LUNGS: No consolidation Interval insertion of an endotracheal tube-its tip is in the right mainstem bronchus. (Please note that a subsequent chest x-ray had been checked and shows interval retraction of the endotracheal tube subsequent to this study on 12/21/2018 at 0354 hr) that subsequent study confirmed its more proximal position in the trachea the clavicle-a more appropriate position than what is suggested on this exam on 12/21/2018 at 0354 hr PLEURA: No pneumothorax or pleural fluid seen. CARDIOVASCULAR: No aortic atherosclerotic calcification present. Mild cardiomegaly suggested. Mild pulmonary venous congestion also suggested.-this appears increased compared the prior study. Defibrillator device are in place. OSSEOUS STRUCTURES: No significant abnormalities. VISUALIZED UPPER ABDOMEN: Normal. OTHER FINDINGS: None. IMPRESSION: Interval insertion endotracheal tube-tip in right mainstem bronchus-subsequently noted a follow-up study to have been retracted approximately Cardiomegaly and mild pulmonary venous congestion suggested. Pulmonary venous congestion appears increased compared the prior study.
--- NOTE | 2018-12-21 08:11 | RAD ---
Date of service: 12/21/2018 PROCEDURE: CHEST RADIOGRAPH, 1 VIEW HISTORY: chest pain COMPARISON: 04/16/2016 at 1350 hr FINDINGS: LUNGS: No consolidation. PLEURA: No pneumothorax or pleural fluid seen. CARDIOVASCULAR: No aortic atherosclerotic calcification present. Mild cardiomegaly suggested. Minimal-mild pulmonary venous congestion. OSSEOUS STRUCTURES: No significant abnormalities. VISUALIZED UPPER ABDOMEN: Normal. OTHER FINDINGS: None. IMPRESSION: Minimal-mild pulmonary venous congestion. Mild cardiomegaly. Comments: No preliminary ER impression at this time.
[2018-12-21 08:23] LABS: ARTERIAL BLOOD GAS HCO3 18.8 mmol/L (21-28); ARTERIAL BLOOD GAS O2 SAT 100.2 % (95-98); ARTERIAL BLOOD GAS PCO2 32 mm/Hg (35-45); ARTERIAL BLOOD GAS PH 7.33 (7.35-7.45); ARTERIAL BLOOD GAS PO2 322 mm/Hg (80-100); ARTERIAL BLOOD GAS TCO2 17.9 mmol/L (22-28)
--- NOTE | 2018-12-21 09:35 | RAD ---
Date of service: 12/21/2018 HISTORY: s/p code johana COMPARISON: 12/21/2018 at 0400 hr FINDINGS: LUNGS: Mild pulmonary venous congestion suggested. No dense consolidation. Endotracheal tube tip satisfactorily position level clavicles. PLEURA: No significant pleural effusion identified,-a small left pleural effusion-layering is possible.. No pneumothorax apparent. CARDIOVASCULAR: There is presence of aortic atherosclerotic calcification on x-ray. Cardiomegaly mild pulmonary venous congestion-grossly similar. OSSEOUS STRUCTURES: No significant abnormalities. VISUALIZED UPPER ABDOMEN: Interval insertion nasogastric tube tip coiling retrograde tip ends in region of the gastric upper body/fundus. Sidehole in gastric body. OTHER FINDINGS: None. IMPRESSION: Interval insertion nasogastric tube. Tip positions satisfactory. Endotracheal tube tip clavicle level satisfactory. Cardiomegaly and mild pulmonary venous congestion-grossly similar. Possible layering left pleural effusions small dense consolidation appreciated.
[2018-12-21] MEDS: Piperacill/Tazo 3.375gm in Dex 3.375 GM/50 ML BAG IVPB SCH ×3 (09:57→19:24)
[2018-12-21 10:00] LABS: BARBITURATES, UR NEGATIVE (NEGATIVE); BENZODIAZEPINES, UR NEGATIVE (NEGATIVE); OPIATES, UR NEGATIVE (NEGATIVE); PHENCYCLIDINE, UR NEGATIVE (NEGATIVE)
[2018-12-21 11:21] LABS: BLOOD UREA NITROGEN 10 mg/dL (7-17); GFR NON-AFRICAN AMERICAN > 60
[2018-12-21 11:22] LABS: ALB/GLOB RATIO 0.8 (1.0-2.1); ALBUMIN 1.8 g/dL (3.5-5.0); ALT/SGPT 14 U/L (9-52); AST/SGOT 51 U/L (14-36); CALCIUM 9.2 mg/dl (8.6-10.4); CK-MB 2.69 ng/mL (0.0-3.38)
[2018-12-21] MEDS ORDERED: Albuterol-Ipratrop 3 mg / 0.5 (3 ml) UD INH STA (11:31)
[2018-12-21] MEDS ORDERED: Calcium Gluconate 4.65 mEq/10 ml Inj IVP ONE (11:45)
[2018-12-21] MEDS ORDERED: Sodium Bicarbonate (8.4%) 50 mEq Vial IVP ONE (11:45)
[2018-12-21] MEDS ORDERED: Sodium Bicarbonate (8.4%) 50 Meq Syringe IVP ONE (11:45)
[2018-12-21] MEDS ORDERED: (Novolin R) Insulin Human Regular 100 units/ml vial IVP ONE (11:45)
[2018-12-21 12:47] LABS: T3 8.15 nmol/L (1.49-2.60)
[2018-12-21 12:55] LABS: BLOOD UREA NITROGEN 20 mg/dL (7-17); CALCIUM 8.8 mg/dl (8.6-10.4); GFR NON-AFRICAN AMERICAN 53
--- NOTE | 2018-12-21 15:25 | VASCLAB ---
Date of service: 12/21/2018 PROCEDURE: Lower Extremity Venous Duplex Exam. HISTORY: Leg swelling PRIORS: None. TECHNIQUE: Bilateral common femoral, femoral, popliteal and posterior tibial, peroneal and great saphenous veins were evaluated. Flow was assessed with color Doppler, compressibility, assessment of phasic flow and augmentation response. Report prepared by HANNA Hardy FINDINGS: RIGHT: 1. Common Femoral Vein: 1.1. Central line in the right groin. 2. Femoral Vein: 2.1. Compressibility - Fully compressible: Thrombus - None : Flow - Phasic: Augmentation -Normal: Reflux - None. 3. Popliteal Vein: 3.1. Compressibility - Fully compressible: Thrombus - None : Flow - Phasic: Augmentation -Normal: Reflux - None. 4. Posterior Tibial Vein: 5. Peroneal Vein: 6. Great Saphenous Vein: 6.1. Compressibility - Fully compressible: Thrombus - None: Flow - Phasic: Augmentation - Normal: Reflux - None. LEFT: 1. Common Femoral Vein: 1.1. Compressibility - Fully compressible: Thrombus - None: Flow - Phasic: Augmentation -Normal: Reflux - None. 2. Femoral Vein: 2.1. Compressibility - Fully compressible: Thrombus - None: Flow - Phasic: Augmentation -Normal: Reflux - None. 3. Popliteal Vein: 3.1. Compressibility - Fully compressible: Thrombus - None : Flow - Phasic: Augmentation -Normal: Reflux - None. 4. Posterior Tibial Vein: 5. Peroneal Vein: 6. Great Saphenous Vein: 6.1. Compressibility - Fully compressible: Thrombus - None: Flow - Phasic: Augmentation - Normal: Reflux - None. OTHER FINDINGS: Diminutive caliber veins in the calves. Unable to visualize bilateral posterior tibial and peroneal veins. Otherwise, normal exam. IMPRESSION: No evidence of deep or superficial vein thrombosis of bilateral lower extremities, as visualized.
[2018-12-21] MEDS: Acetaminophen 650mg/20.3ml solution UD GT PRN (16:11)
--- NOTE | 2018-12-21 18:52 | CARD ---
APPROVED REPORT Date of service: 12/21/2018 EXAM: Two-dimensional and M-mode echocardiogram with Doppler and color Doppler. Other Information Quality : [employer] : INDICATION S/P code blue 2D DIMENSIONS IVSd1.1 (0.7-1.1cm)LVDd4.5 (3.9-5.9cm) PWd1.3 (0.7-1.1cm)LA Srrpny57 (18-58mL) LVDs3.9 (2.5-4.0cm)FS (%) 12.0 % LVEF (%)26.0 (>50%)LVEF (Wolf's)26.08 % IVC0.00 cm M-Mode DIMENSIONS RVDd3.02 (2.1-3.2cm)Left Atrium (MM)3.07 (2.5-4.0cm) IVSd1.22 (0.7-1.1cm)Aortic Root3.02 (2.2-3.7cm) LVDd4.43 (4.0-5.6cm)Aortic Cusp Exc.2.13 (1.5-2.0cm) PWd1.11 (0.7-1.1cm)FS (%) 7 % LVDs4.13 (2.0-3.8cm)TAPSE14.01 cm Aortic Valve AI P 1/2 [id number] Mitral Valve MV E Ugrxzyjr97.6cm/sMV A Kuzhjxbh86.5cm/sE/A ratio0.7 QKTA216.49 cm/s TDI Lateral E' Peak V5.71cm/sMedial E' Peak V4.42cm/sE/Lateral E'8.5 E/Medial E'11.0 Tricuspid Valve TR Peak Rqydsmiw579dd/sTR Peak Gr.[id number] LEFT VENTRICLE The left ventricle is normal size. The left ventricular function is severely reduced, with diffuse hypokinesis. The left ventricular ejection fraction is visually estimated to be about 15%. The inferoapex and apical-septum appear akinetic. The left ventricular diastolic function is indeterminate. No left ventricle thrombus noted on this study. There is no ventricular septal defect visualized. There is no left ventricular aneurysm. There is no mass noted in the left ventricle. RIGHT VENTRICLE The right ventricle is moderate to markedly dialted. The right ventricular systolic function is moderately reduced. ATRIA The left atrium size is normal. The right atrium size is markedly dialted. The interatrial septum is intact with no evidence for an atrial septal defect. AORTIC VALVE The aortic valve is normal in structure and function. Mild aortic regurgitation is present. Normal opening aortic valve with mild leaflet thickeneing. There is no aortic valvular vegetation. MITRAL VALVE The mitral valve is normal in structure and function. There is no evidence of mitral valve prolapse. There is no mitral valve stenosis. There is trace mitral valve regurgitation noted. TRICUSPID VALVE The tricuspid valve is normal in structure and function. There is moderate tricuspid valve regurgitation noted. peak gradient is 26 mm Hg, and by doppler PA systolic pressure is 46 mm Hg at most, but Doppler assessment is likely underestimating higher PA ystolic pressure. There is no tricuspid valve prolapse or vegetation. There is no tricuspid valve stenosis. PULMONIC VALVE The pulmonary valve is normal in structure and function. There is mild pulmonic valvular regurgitation. There is no pulmonic valvular stenosis. GREAT VESSELS The aortic root is normal in size. The ascending aorta is mildly dilated at 4.0 cnm diameter. The pulmonary artery is normal. The IVC is dilated and collapses <50% with inspiration. PERICARDIAL EFFUSION The pericardium appears normal. There is no pleural effusion. <Conclusion> The left ventricular function is severely reduced, with diffuse hypokinesis. The left ventricular ejection fraction is visually estimated to be about 15%. The inferoapex and apical-septum appear akinetic. LSub-optimal assessment of wall motion due to reduced study quality, apex not well seen. IV echo contrast would have improved assesment. The right ventricle is moderate to markedly dialted. The right ventricular systolic function is moderately reduced. Mild aortic regurgitation is present. There is moderate tricuspid valve regurgitation noted. Peak gradient is 26 mm Hg, and by doppler PA systolic pressure is 46 mm Hg at most, but Doppler assessment is likely underestimating higher PA systolic pressure. The ascending aorta is mildly dilated at 4.0 cnm diameter.
--- NOTE | 2018-12-21 20:05 | CP.PCM.HP ---
Past Patient History - Infectious Disease Hx of Infectious Diseases: None - Past Medical History & Family History Past Medical History?: Yes - Past Social History Smoking Status: Never Smoked - CARDIAC Hx Cardiac Disorders: Yes Hx Hypertension: Yes - PULMONARY Hx Respiratory Disorders: Yes Hx Asthma: Yes - NEUROLOGICAL Hx Neurological Disorder: No - HEENT Hx HEENT Problems: Yes Other/Comment: uses glasses for reading - RENAL Hx Chronic Kidney Disease: No - ENDOCRINE/METABOLIC Hx Endocrine Disorders: Yes Hx Hyperthyroidism: Yes Hx Hypothyroidism: Yes - HEMATOLOGICAL/ONCOLOGICAL Hx Blood Disorders: No - INTEGUMENTARY Hx Dermatological Problems: No - MUSCULOSKELETAL/RHEUMATOLOGICAL Hx Musculoskeletal Disorders: Yes Hx Falls: Yes - GASTROINTESTINAL Hx Gastrointestinal Disorders: No - GENITOURINARY/GYNECOLOGICAL Hx Genitourinary Disorders: No - PSYCHIATRIC Hx Psychophysiologic Disorder: Yes Hx Anxiety: Yes - SURGICAL HISTORY Hx Surgeries: No - ANESTHESIA Hx Anesthesia: No Hx Anesthesia Reactions: No Hx Malignant Hyperthermia: No Has any member of the family had a problem w/ anesthesia?: No Meds Allergies/Adverse Reactions: Allergies Allergy/AdvReac Type Severity Reaction Status Date / Time No Known Allergies Allergy Verified 04/16/16 12:57 Physical Exam - Constitutional Appears: Well - Head Exam Head Exam: ATRAUMATIC, NORMAL INSPECTION, NORMOCEPHALIC - Eye Exam Eye Exam: EOMI, Normal appearance, PERRL Pupil Exam: NORMAL ACCOMODATION, PERRL - ENT Exam ENT Exam: Mucous Membranes Moist, Normal Exam - Neck Exam Neck exam: Positive for: Normal Inspection - Respiratory Exam Respiratory Exam: Decreased Breath Sounds - Cardiovascular Exam Cardiovascular Exam: REGULAR RHYTHM, +S1, +S2 - GI/Abdominal Exam GI & Abdominal Exam: Diminished Bowel Sounds, Soft - Rectal Exam Rectal Exam: Deferred Results - Vital Signs Recent Vital Signs: Last Vital Signs Temp 101.2 F H 12/21/18 17:11 Pulse 112 H 12/21/18 17:18 Resp 21 12/21/18 17:18 BP 111/73 12/21/18 18:00 Pulse Ox 99 12/21/18 17:18 - Labs Result Diagrams: 12/21/18 06:42 12/21/18 12:25 Labs: Laboratory Results - last 24 hr 12/21/18 12/21/18 12/21/18 01:11 01:30 01:30 WBC 7.4 RBC 4.44 Hgb 12.7 Hct 38.9 MCV 87.6 MCH 28.7 MCHC 32.7 L RDW 14.6 H Plt Count 199 MPV 9.0 Neut % (Auto) 55.5 Lymph % (Auto) 34.8 Swift % (Auto) 8.3 Eos % (Auto) 1.1 Baso % (Auto) 0.3 Neut # (Auto) 4.1 Lymph # (Auto) 2.6 Swift # (Auto) 0.6 Eos # (Auto) 0.1 Baso # (Auto) 0.0 PT 14.0 H INR 1.3 APTT 37 H Puncture Site pCO2 pO2 HCO3 ABG pH ABG Total CO2 ABG O2 Saturation ABG Base Excess Howard Test ABG Potassium A-a O2 Difference Respiratory Index Glucose Lactate Vent Mode Mechanical Rate FiO2 Tidal Volume PEEP Crit Value Called To Crit Value Called By Crit Value Read Back Blood Gas Notified Time Sodium Potassium Chloride Carbon Dioxide Anion Gap BUN Creatinine Est GFR ( Amer) Est GFR (Non-Af Amer) Random Glucose Calcium Phosphorus Magnesium Total Bilirubin AST ALT Alkaline Phosphatase Total Creatine Kinase CK-MB (Mass) Troponin I NT-Pro-B Natriuret Pep Total Protein Albumin Globulin Albumin/Globulin Ratio Lipase Free T4 Free T3 pg/mL Total T3 TSH 3rd Generation Arterial Blood Potassium Urine Color Yellow Urine Clarity Hazy Urine pH 5.5 Ur Specific Baker 1.030 Urine Protein Negative Urine Glucose (UA) Negative Urine Ketones Negative Urine Blood Small Urine Nitrate Negative Urine Bilirubin Negative Urine Urobilinogen 0.2 Ur Leukocyte Esterase Negative Urine WBC (Auto) 3 Urine RBC (Auto) 4 H Ur Squamous Epith Cells 3 Hyaline Casts 4 Urine Opiates Screen Urine Methadone Screen Ur Barbiturates Screen Ur Phencyclidine Scrn Ur Amphetamines Screen U Benzodiazepines Scrn U Oth Cocaine Metabols U Cannabinoids Screen 12/21/18 12/21/18 12/21/18 01:30 06:12 06:42 WBC RBC Hgb Hct MCV MCH MCHC RDW Plt Count MPV Neut % (Auto) Lymph % (Auto) Swift % (Auto) Eos % (Auto) Baso % (Auto) Neut # (Auto) Lymph # (Auto) Swift # (Auto) Eos # (Auto) Baso # (Auto) PT INR APTT Puncture Site R fem by dr sadler pCO2 28 L pO2 181 H HCO3 3.7 L* ABG pH 6.88 L* ABG Total CO2 6.1 L ABG O2 Saturation 100.6 H ABG Base Excess -27.3 L Howard Test Na ABG Potassium 7.0 H* A-a O2 Difference 212.0 Respiratory Index 1.2 Glucose 55 L Lactate 11.6 H* Vent Mode Prvc Mechanical Rate 14 FiO2 60.0 Tidal Volume 400 PEEP 5 Crit Value Called To Katiana horticultural farmworker Crit Value Called By Gwendolyn reed rt Crit Value Read Back Y Blood Gas Notified Time 615 Sodium 139 140.0 Potassium 3.9 Chloride 109 H 118.0 H Carbon Dioxide 18 L Anion Gap 17 BUN 8 Creatinine 0.3 L Est GFR ( Amer) > 60 Est GFR (Non-Af Amer) > 60 Random Glucose 152 H D Calcium 8.9 Phosphorus Magnesium Total Bilirubin 0.6 AST 43 H ALT 24 Alkaline Phosphatase 144 H Total Creatine Kinase CK-MB (Mass) Troponin I 0.0420 NT-Pro-B Natriuret Pep 459 H Total Protein 7.4 Albumin 3.7 Globulin 3.8 Albumin/Globulin Ratio 1.0 Lipase 31 Free T4 5.67 H Free T3 pg/mL Total T3 TSH 3rd Generation < 0.02 L < 0.02 L Arterial Blood Potassium 7.0 H* Urine Color Urine Clarity Urine pH Ur Specific Baker Urine Protein Urine Glucose (UA) Urine Ketones Urine Blood Urine Nitrate Urine Bilirubin Urine Urobilinogen Ur Leukocyte Esterase Urine WBC (Auto) Urine RBC (Auto) Ur Squamous Epith Cells Hyaline Casts Urine Opiates Screen Urine Methadone Screen Ur Barbiturates Screen Ur Phencyclidine Scrn Ur Amphetamines Screen U Benzodiazepines Scrn U Oth Cocaine Metabols U Cannabinoids Screen 12/21/18 12/21/18 12/21/18 06:42 06:42 06:42 WBC 9.0 RBC 3.58 L Hgb 10.3 L D Hct 32.2 L MCV 90.0 D MCH 28.8 MCHC 32.0 L RDW 14.9 H Plt Count 145 MPV 8.6 Neut % (Auto) 76.1 H Lymph % (Auto) 19.5 L Swift % (Auto) 4.0 Eos % (Auto) 0.2 Baso % (Auto) 0.2 Neut # (Auto) 6.9 Lymph # (Auto) 1.8 Swift # (Auto) 0.4 Eos # (Auto) 0.0 Baso # (Auto) 0.0 PT 18.9 H INR 1.7 APTT 37 H Puncture Site pCO2 pO2 HCO3 ABG pH ABG Total CO2 ABG O2 Saturation ABG Base Excess Howard Test ABG Potassium A-a O2 Difference Respiratory Index Glucose Lactate Vent Mode Mechanical Rate FiO2 Tidal Volume PEEP Crit Value Called To Crit Value Called By Crit Value Read Back Blood Gas Notified Time Sodium 141 Potassium 6.8 H* D Chloride 107 Carbon Dioxide 23 Anion Gap 18 BUN 10 Creatinine 0.8 Est GFR ( Amer) > 60 Est GFR (Non-Af Amer) > 60 Random Glucose 236 H D Calcium 9.2 Phosphorus 8.2 H Magnesium 1.9 Total Bilirubin 0.3 AST 51 H ALT 14 Alkaline Phosphatase 77 Total Creatine Kinase 50 CK-MB (Mass) 2.69 Troponin I 0.4120 H* NT-Pro-B Natriuret Pep Total Protein 4.0 L Albumin 1.8 L D Globulin 2.2 Albumin/Globulin Ratio 0.8 L Lipase Free T4 Free T3 pg/mL Total T3 8.15 H TSH 3rd Generation < 0.02 L Arterial Blood Potassium Urine Color Urine Clarity Urine pH Ur Specific Baker Urine Protein Urine Glucose (UA) Urine Ketones Urine Blood Urine Nitrate Urine Bilirubin Urine Urobilinogen Ur Leukocyte Esterase Urine WBC (Auto) Urine RBC (Auto) Ur Squamous Epith Cells Hyaline Casts Urine Opiates Screen Urine Methadone Screen Ur Barbiturates Screen Ur Phencyclidine Scrn Ur Amphetamines Screen U Benzodiazepines Scrn U Oth Cocaine Metabols U Cannabinoids Screen 12/21/18 12/21/18 12/21/18 08:20 09:22 10:04 WBC RBC Hgb Hct MCV MCH MCHC RDW Plt Count MPV Neut % (Auto) Lymph % (Auto) Swift % (Auto) Eos % (Auto) Baso % (Auto) Neut # (Auto) Lymph # (Auto) Swift # (Auto) Eos # (Auto) Baso # (Auto) PT INR APTT Puncture Site Rba pCO2 32 L pO2 322 H HCO3 18.8 L ABG pH 7.33 L ABG Total CO2 17.9 L ABG O2 Saturation 100.2 H ABG Base Excess -7.9 L Howard Test Na ABG Potassium 4.8 A-a O2 Difference 66.0 Respiratory Index 0.2 Glucose 137 H Lactate 8.3 H* Vent Mode Prvc Mechanical Rate 22 FiO2 60.0 Tidal Volume 400 PEEP 5 Crit Value Called To Crit Value Called By Kalyn,truck rental clerk Crit Value Read Back Y Blood Gas Notified Time 825 Sodium 145.0 Potassium Chloride 118.0 H Carbon Dioxide Anion Gap BUN Creatinine Est GFR ( Amer) Est GFR (Non-Af Amer) Random Glucose Calcium Phosphorus Magnesium Total Bilirubin AST ALT Alkaline Phosphatase Total Creatine Kinase CK-MB (Mass) Troponin I NT-Pro-B Natriuret Pep Total Protein Albumin Globulin Albumin/Globulin Ratio Lipase Free T4 Free T3 pg/mL > 22.80 H Total T3 TSH 3rd Generation Arterial Blood Potassium 4.8 Urine Color Urine Clarity Urine pH Ur Specific Baker Urine Protein Urine Glucose (UA) Urine Ketones Urine Blood Urine Nitrate Urine Bilirubin Urine Urobilinogen Ur Leukocyte Esterase Urine WBC (Auto) Urine RBC (Auto) Ur Squamous Epith Cells Hyaline Casts Urine Opiates Screen Negative Urine Methadone Screen Negative Ur Barbiturates Screen Negative Ur Phencyclidine Scrn Negative Ur Amphetamines Screen Negative U Benzodiazepines Scrn Negative U Oth Cocaine Metabols Negative U Cannabinoids Screen Negative 12/21/18 12/21/18 12:25 15:57 WBC RBC Hgb Hct MCV MCH MCHC RDW Plt Count MPV Neut % (Auto) Lymph % (Auto) Swift % (Auto) Eos % (Auto) Baso % (Auto) Neut # (Auto) Lymph # (Auto) Swift # (Auto) Eos # (Auto) Baso # (Auto) PT INR APTT > 400 H* D Puncture Site pCO2 pO2 HCO3 ABG pH ABG Total CO2 ABG O2 Saturation ABG Base Excess Howard Test ABG Potassium A-a O2 Difference Respiratory Index Glucose Lactate Vent Mode Mechanical Rate FiO2 Tidal Volume PEEP Crit Value Called To Crit Value Called By Crit Value Read Back Blood Gas Notified Time Sodium 145 Potassium 3.5 L Chloride 112 H Carbon Dioxide 26 Anion Gap 10 BUN 20 H Creatinine 1.1 Est GFR ( Amer) > 60 Est GFR (Non-Af Amer) 53 Random Glucose 108 H D Calcium 8.8 Phosphorus Magnesium Total Bilirubin AST ALT Alkaline Phosphatase Total Creatine Kinase CK-MB (Mass) Troponin I NT-Pro-B Natriuret Pep Total Protein Albumin Globulin Albumin/Globulin Ratio Lipase Free T4 Free T3 pg/mL Total T3 TSH 3rd Generation Arterial Blood Potassium Urine Color Urine Clarity Urine pH Ur Specific Baker Urine Protein Urine Glucose (UA) Urine Ketones Urine Blood Urine Nitrate Urine Bilirubin Urine Urobilinogen Ur Leukocyte Esterase Urine WBC (Auto) Urine RBC (Auto) Ur Squamous Epith Cells Hyaline Casts Urine Opiates Screen Urine Methadone Screen Ur Barbiturates Screen Ur Phencyclidine Scrn Ur Amphetamines Screen U Benzodiazepines Scrn U Oth Cocaine Metabols U Cannabinoids Screen
[2018-12-22] MEDS: Piperacill/Tazo 3.375gm in Dex 3.375 GM/50 ML BAG IVPB SCH ×4 (00:01→18:02)
[2018-12-22] MEDS: Sodium Chloride 0.9% 1,000 ML IV SCH ×3 (00:22→11:13)
--- NOTE | 2018-12-22 02:08 | CON ---
DATE: 12/21/2018 ENDOCRINOLOGY CONSULTATION LOCATION: ICU, room 18. HISTORY OF PRESENT ILLNESS: This is a 48-year-old female with known history of Grave's disease and hyperthyroidism. Apparently has been off medications for almost 3 weeks, presenting here with intractable vomiting and diffuse upper abdominal pain and was seen in the emergency room today as noted. However, she developed sudden bradycardia and marked tachycardia and went into cardiac arrest and is currently endotracheally intubated and sedated and is being referred now for endocrine evaluation and management. PAST MEDICAL HISTORY: As mentioned above, history of Grave's disease and hyperthyroidism, and has been on Tapazole medications, the exact dose is unknown at this time. History of hypertension and dyslipidemia, history of chronic bronchial asthma. FAMILY HISTORY: Positive for hypertension and heart disease. No known thyroid endocrinopathy. SOCIAL HISTORY: The patient has supportive family. No known substance use. REVIEW OF SYSTEMS: Not possible at this time, but the chart has been reviewed in detail and the consultants notes and medical management have also been reviewed in detail. PHYSICAL EXAMINATION: GENERAL: This is an overweight female. Currently, intubated and sedated. VITAL SIGNS: Blood pressure of 140/80, pulse of 150 beats per minute on admission with a blood pressure of 186/131 in the emergency room, respirations as per ventilator parameters, temperature 98, height is 5 feet, weight is 156 pounds. HEENT: Head normocephalic. Eyes anicteric with pink conjunctivae. Funduscopy not possible at this time. Ears, nose, and throat, otherwise, normal. NECK: Supple. Thyroid gland is firm and nontender with no overt thyroid bruits or cervical adenopathy. HEART: Hyperdynamic precordium. S1, S2, rapid and regular. LUNGS: Shows scattered rhonchi. ABDOMEN: Flat, soft with positive bowel sounds. EXTREMITIES: No peripheral edema. Pulses are +2 bilaterally. LABORATORY DATA: Chemistries showed a BUN of 8, sodium 139, potassium was 3.9, chloride 109, CO2 is 18, glucose is 152, creatinine is 0.3. Her pro-BNP is 459. The free T4 is 5.67 with a TSH of less than 0.02. Troponin is 0.04. The echocardiogram showed marked hypokinesis in the right and also marked hypokinesis in the right ventricular area is noted. ASSESSMENT: This is a 48-year-old female with overt thyrotoxicosis presenting here with marked hyperthyroidism, both historically, clinically, and biochemically. Most likely, related to underlying Grave's disease with recent drug omission and developed acute respiratory failure and is now being referred for endocrine evaluation and management. There is also a very strong clinical possibility of acute pulmonary embolism with aforementioned clinical findings and is currently on a heparin drip infusion as noted and given. PLAN OF MANAGEMENT: We will also start her on a high dose medical therapy with Tapazole given as 20 mg every 8 hours to start this morning as ordered. We will obtain a comprehensive thyroid hormonal profile tomorrow to include a thyroid stimulating immunoglobulin, which will confirm and indicate the presence of thyroid autoimmunity. We will also follow the stat dosing of the hydrocortisone given as 100 mg with 50 mg every 8 hours as ordered. We will repeat chemistries and supplement accordingly as needed. We will follow and advised accordingly. Linda Weaver MD
[2018-12-22] MEDS: Propofol 10 mg/ml 1,000 MG/100 ML VIAL IV PRN ×2 (03:19→17:18)
[2018-12-22] MEDS: Acetaminophen 650mg/20.3ml solution UD GT PRN ×4 (04:00→23:02)
[2018-12-22 04:53] LABS: LYMPH # 1.8 K/uL (1.0-4.3); LYMPH % 12.8 % (20.0-40.0); MEAN CELL VOLUME 85.6 fL (81.0-99.0); MEAN CORPUSCULAR HEMOGLOBIN 27.9 pg (27.0-31.0); MEAN CORPUSCULAR HGB CONC 32.6 g/dL (33.0-37.0); MEAN PLATELET VOLUME 8.6 fL (7.2-11.7); MONO # 1.1 K/uL (0.0-0.8); MONO % 7.7 % (0.0-10.0); NEUT % 79.5 % (50.0-75.0); RBC 3.95 Mil/uL (3.80-5.20); RED CELL DISTRIBUTION WIDTH 14.9 % (11.5-14.5); WHITE BLOOD COUNT 13.9 K/uL (4.8-10.8)
[2018-12-22 05:46] LABS: ABG ALLEN TEST POS; ARTERIAL BLOOD GAS HCO3 25.1 mmol/L (21-28); ARTERIAL BLOOD GAS O2 SAT 100.2 % (95-98); ARTERIAL BLOOD GAS PCO2 34 mm/Hg (35-45); ARTERIAL BLOOD GAS PH 7.45 (7.35-7.45); ARTERIAL BLOOD GAS PO2 298 mm/Hg (80-100); ARTERIAL BLOOD GAS TCO2 24.6 mmol/L (22-28)
[2018-12-22] MEDS: Midazolam 50 mg/10 ml 100 MG in Dextrose 5% In Water 80 ML IV SCH (05:46)
[2018-12-22 06:03] LABS: ALB/GLOB RATIO 0.8 (1.0-2.1); ALBUMIN 2.4 g/dL (3.5-5.0); ALT/SGPT 543 U/L (9-52); BLOOD UREA NITROGEN 32 mg/dL (7-17); CALCIUM 7.2 mg/dl (8.6-10.4); GFR NON-AFRICAN AMERICAN 30
[2018-12-22 06:26] LABS: AST/SGOT 881 U/L (14-36)
--- NOTE | 2018-12-22 07:22 | CP.PCM.PN ---
Subjective - Date & Time of Evaluation Date of Evaluation: 12/22/18 Time of Evaluation: 07:15 - Subjective Subjective: [id number] Internal Medicine Resident Endocrinology Progress note for Dr. Weaver Patient seen and examined at bedside. Overnight patient spiked temp 100.6F and remained tachycardic. She is sedated and intubated on vent (22, 60, 400, 5). ROS unobtainable secondary to clinical condition. Objective - Vital Signs/Intake and Output Vital Signs (last 24 hours): Temp Pulse Resp BP Pulse Ox 99.5 F 118 H 22 131/83 100 12/22/18 05:00 12/22/18 06:00 12/22/18 06:00 12/22/18 05:50 12/22/18 06:00 Intake and Output: 12/22/18 12/22/18 06:59 18:59 Intake Total 2149.5 Output Total 560 Balance 1589.5 - Medications Medications: Current Medications Acetaminophen (Tylenol 650mg/20.3ml Solution Ud) 650 mg GT Q6 PRN PRN Reason: Temperature Last Admin: 12/22/18 04:00 Dose: 650 mg Hydrocortisone Sodium Succinate (Solu-Cortef) 50 mg IV Q8H [place] Last Admin: 12/22/18 06:12 Dose: 50 mg Sodium Chloride (Sodium Chloride 0.9%) 1,000 mls @ 100 mls/hr IV .Q10H [place] Last Admin: 12/22/18 05:38 Dose: 100 mls/hr Midazolam HCl 100 mg/ Dextrose 100 mls @ 1.42 mls/hr IV .Q24H [place]; Protocol Last Admin: 12/22/18 05:46 Dose: Not Given Norepinephrine Bitartrate 4 mg (/ Sodium Chloride) 254 mls @ 15.24 mls/hr IV .[id number] PRN; Protocol PRN Reason: TITRATE PER MD ORDER Last Titration: 12/21/18 10:39 Dose: 0 mcg/min, 0 mls/hr Heparin Sodium/Sodium Chloride (Heparin 14206 Units/250ml 1/2 Normal Saline) 25,000 units in 250 mls @ 12.737 mls/hr IV .[id number] PRN; Protocol PRN Reason: ADJUST RATE PER PROTOCOL Last Titration: 12/22/18 02:00 Dose: 12 units/kg/hr, 8.491 mls/hr Piperacillin Sod/Tazobactam Sod (Zosyn 3.375 Gm Iv Premix) 3.375 gm in 50 mls @ 100 mls/hr IVPB Q6H [place]; Protocol Last Admin: 12/22/18 05:45 Dose: 100 mls/hr Vancomycin HCl 1,000 mg/ (Sodium Chloride) 250 mls @ 166.6 mls/hr IVPB Q12H [place]; Protocol Last Admin: 12/22/18 05:45 Dose: 166.6 mls/hr Propofol (Diprivan) 1,000 mg in 100 mls @ 2.123 mls/hr IV .Q24H PRN; Protocol PRN Reason: TITRATE PER MD ORDER Last Titration: 12/22/18 05:00 Dose: 20 mcg/kg/min, 8.491 mls/hr Influenza Virus Vaccine (Flucelvax Quad 4072-9261 Syr) 60 mcg IM .ONCE ONE Stop: 12/23/18 10:01 Methimazole (Tapazole) 20 mg PO Q8H [place] Last Admin: 12/22/18 05:37 Dose: 20 mg Metoprolol Tartrate (Lopressor) 25 mg PO BID [place] Last Admin: 12/21/18 18:00 Dose: 25 mg Pantoprazole Sodium (Protonix Inj) 40 mg IVP DAILY [place] Last Admin: 12/21/18 10:28 Dose: 40 mg - Labs Labs: 12/22/18 04:49 12/22/18 04:49 PT 18.9 SECONDS (9.7-12.2) H 12/21/18 06:42 INR 1.7 12/21/18 06:42 APTT > 400 SECONDS (21-34) H* 12/22/18 00:21 Assessment and Plan - Assessment and Plan (Free Text) Assessment: 48yo female PMHx HTN, Hyperthyroidism, TIA, anxiety, asthma and Grave's dx presented to the ER overnight with complaints of severe abdominal pain, nausea, and vomiting. Patient had cardiac arrest x 3 and ROSC was achieved. Admitted to MICU for further management. Endocrinology consulted for possible thyroid storm. Plan: Overnight events, imaging, and blood work noted. TSH < 0.02, free T4 5.67, and total T4 22.3. Serum cortisol wnl. Will continue solucortef 50q8 to inhibit conversion from T3 to T4 and will increase Tapazole to 20q6. Tapazole more potent and longer acting than PTU which is short acting. Elevated LFTs likely 2/2 to hyperthyroidism vs shock liver 2/2 cardiac arrest. Will continue to monitor blood work. Cardio reccs appreciated. Echo reviewed. Blood cultures prelim negative x 2. Continue to correct electrolyte abnl. Continue management as per primary and MICU team. Discussed with Dr. Owen Crowell PGY3
--- NOTE | 2018-12-22 07:29 | CP.CCUPN ---
<Nehemiah Shin - Last Filed: 12/22/18 18:17> CCU Objective - Vital Signs / Intake & Output Vital Signs (Last 4 hours): Vital Signs Temp Pulse Resp BP Pulse Ox 12/22/18 17:35 143/85 12/22/18 17:34 124 H 24 100 12/22/18 17:30 125 H 23 150/86 100 12/22/18 17:11 133 H 24 141/111 H 100 12/22/18 17:00 130 H 27 H 100 12/22/18 16:50 121 H 22 150/89 100 12/22/18 16:31 101 F H 12/22/18 16:21 134 H 29 H 164/109 H 100 12/22/18 16:05 122 H 29 H 142/91 H 100 12/22/18 16:00 121 H 23 100 12/22/18 15:50 122 H 23 141/85 100 12/22/18 15:36 130 H 32 H 152/116 H 100 12/22/18 15:21 121 H 26 H 144/92 H 100 12/22/18 15:05 114 H 22 138/92 H 100 12/22/18 15:00 113 H 22 100 12/22/18 14:50 110 H 21 128/70 100 12/22/18 14:35 113 H 22 153/86 H 100 12/22/18 14:20 113 H 22 146/89 100 Intake and Output (Last 8hrs): Intake & Output 12/22/18 12/22/18 12/22/18 06:59 14:59 22:59 Intake Total 1368.9 844.8 25.9 Output Total 400 540 Balance 968.9 304.8 25.9 Weight 155 lb Intake: IV 147 123 25.9 Intake, IV Amount 1221.9 721.8 Right Medial Port Femoral 95.2 33.6 Right Proximal Port 18.9 Femoral left Hand 73.8 4.2 right AC 1034 334 right hand 350 Output: Urine 400 540 Urethral (Perez) 400 540 Other: # Bowel Movements 1 - Medications Active Medications: Active Medications Generic Name Dose Route Start Last Admin Trade Name Freq PRN Reason Stop Dose Admin Acetaminophen 650 mg 12/21/18 15:53 12/22/18 16:31 Tylenol 650mg/20.3ml Solution Ud GT 650 mg Q6 PRN Administration Temperature Hydrocortisone Sodium Succinate 50 mg 12/21/18 15:00 12/22/18 16:31 Solu-Cortef IV 50 mg Q8H [place] Administration Midazolam HCl 100 mg/ Dextrose 100 mls @ 1.42 mls/hr 12/21/18 04:30 12/22/18 08:13 IV 0 mg/kg/hr .Q24H [place] 0 mls/hr Titration Protocol 0.02 MG/KG/HR Heparin Sodium/Sodium Chloride 25,000 units in 250 mls @ 12.737 mls/hr 12/21/18 06:36 12/22/18 09:00 Heparin 04981 Units/250ml 1/2 Normal Saline IV 0 units/kg/hr .[id number] PRN 0 mls/hr ADJUST RATE PER PROTOCOL Titration Protocol 18 UNITS/KG/HR Piperacillin Sod/Tazobactam Sod 3.375 gm in 50 mls @ 100 mls/hr 12/21/18 06:45 12/22/18 18:02 Zosyn 3.375 Gm Iv Premix IVPB 100 mls/hr Q6H [place] Administration Protocol Vancomycin HCl 1,000 mg/ 250 mls @ 166.6 mls/hr 12/21/18 06:45 12/22/18 05:45 Sodium Chloride IVPB 166.6 mls/hr Q12H [place] Administration Protocol Propofol 1,000 mg in 100 mls @ 2.123 mls/hr 12/21/18 07:42 12/22/18 18:00 Diprivan IV 10 mcg/kg/min .Q24H PRN 4.246 mls/hr TITRATE PER MD ORDER Titration Protocol 5 MCG/KG/MIN Lactated Ringer's 1,000 mls @ 60 mls/hr 12/22/18 13:30 12/22/18 14:19 Lactated Ringer's IV 60 mls/hr .[id number] [place] Administration Dexmedetomidine HCl 200 mcg/ 50 mls @ 3.52 mls/hr 12/22/18 17:22 12/22/18 17:46 Sodium Chloride IV 0.2 mcg/kg/hr TITR PRN 3.52 mls/hr Agitation Administration Protocol 0.2 MCG/KG/HR Influenza Virus Vaccine 60 mcg 12/23/18 10:00 Flucelvax Quad [id number] Syr IM 12/23/18 10:01 .ONCE ONE Labetalol HCl 100 mg 12/22/18 18:00 Trandate PO BID [place] Methimazole 20 mg 12/22/18 10:30 12/22/18 16:30 Tapazole PO 20 mg Q6H [place] Administration Pantoprazole Sodium 40 mg 12/21/18 10:15 12/22/18 11:13 Protonix Inj IVP 40 mg DAILY [place] Administration - Patient Studies Lab Studies: Microbiology Studies 12/21/18 05:57 MRSA Culture (Admit) - Final Nose MRSA NOT DETECTED 12/21/18 08:39 Blood Culture - Preliminary Blood NO GROWTH AFTER 24 HOURS 12/21/18 08:39 Blood Culture - Preliminary Blood NO GROWTH AFTER 24 HOURS Lab Studies 12/22/18 12/22/18 12/22/18 Range/Units 08:55 08:00 05:19 WBC (4.8-10.8) K/uL RBC (3.80-5.20) Mil/uL Hgb (11.0-16.0) g/dL Hct (34.0-47.0) % MCV (81.0-99.0) fL MCH (27.0-31.0) pg MCHC (33.0-37.0) g/dL RDW (11.5-14.5) % Plt Count (130-400) K/uL MPV (7.2-11.7) fL Neut % (Auto) (50.0-75.0) % Lymph % (Auto) (20.0-40.0) % [place] % (Auto) (0.0-10.0) % Eos % (Auto) (0.0-4.0) % Baso % (Auto) (0.0-2.0) % Neut # (Auto) (1.8-7.0) K/uL Lymph # (Auto) (1.0-4.3) K/uL [place] # (Auto) (0.0-0.8) K/uL Eos # (Auto) (0.0-0.7) K/uL Baso # (Auto) (0.0-0.2) K/uL PT 19.6 H (9.7-12.2) SECONDS INR 1.8 APTT > 400 H* > 400 H* (21-34) SECONDS Puncture Site Rr pCO2 34 L (35-45) mm/Hg pO2 298 H (80-100) mm/Hg HCO3 25.1 (21-28) mmol/L ABG pH 7.45 (7.35-7.45) ABG Total CO2 24.6 (22-28) mmol/L ABG O2 Saturation 100.2 H (95-98) % ABG Base Excess 0.1 (-2.0-3.0) mmol/L Howard Test Pos ABG Potassium 3.6 (3.6-5.2) mmol/L A-a O2 Difference 87.0 mm/Hg Respiratory Index 0.3 Glucose 131 H (65-105) mg/dl Lactate 1.3 (0.7-2.1) mmol/L Vent Mode Prvc Mechanical Rate 22 FiO2 60.0 % Tidal Volume 400 PEEP 5 Sodium 145.0 (132-148) mmol/L Potassium (3.6-5.2) mmol/L Chloride 116.0 H (98-107) mmol/L Carbon Dioxide (22-30) mmol/L Anion Gap (10-20) BUN (7-17) mg/dL Creatinine (0.7-1.2) mg/dL Est GFR ( Amer) Est GFR (Non-Af Amer) Random Glucose (65-105) mg/dL Calcium (8.6-10.4) mg/dl Phosphorus (2.5-4.5) mg/dL Magnesium (1.6-2.3) mg/dL Total Bilirubin (0.2-1.3) mg/dL AST (14-36) U/L ALT (9-52) U/L Alkaline Phosphatase (38-126) U/L Total Protein (6.3-8.3) g/dL Albumin (3.5-5.0) g/dL Globulin (2.2-3.9) gm/dL Albumin/Globulin Ratio (1.0-2.1) Thyroxine (T4) (5.5-11.0) ug/dL TSH 3rd Generation (0.46-4.68) mIU/L Cortisol AM Sample (4.46-22.7) ug/dL Arterial Blood Potassium 3.6 (3.6-5.2) mmol/L 12/22/18 12/22/1812/22/19 Range/Units 04:49 04:49 04:49 WBC 13.9 H D (4.8-10.8) K/uL RBC 3.95 (3.80-5.20) Mil/uL Hgb 11.0 (11.0-16.0) g/dL Hct 33.8 L (34.0-47.0) % MCV 85.6 D (81.0-99.0) fL MCH 27.9 (27.0-31.0) pg MCHC 32.6 L (33.0-37.0) g/dL RDW 14.9 H (11.5-14.5) % Plt Count 136 (130-400) K/uL MPV 8.6 (7.2-11.7) fL Neut % (Auto) 79.5 H (50.0-75.0) % Lymph % (Auto) 12.8 L (20.0-40.0) % [place] % (Auto) 7.7 (0.0-10.0) % Eos % (Auto) 0.0 (0.0-4.0) % Baso % (Auto) 0.0 (0.0-2.0) % Neut # (Auto) 11.0 H (1.8-7.0) K/uL Lymph # (Auto) 1.8 (1.0-4.3) K/uL [place] # (Auto) 1.1 H (0.0-0.8) K/uL Eos # (Auto) 0.0 (0.0-0.7) K/uL Baso # (Auto) 0.0 (0.0-0.2) K/uL PT (9.7-12.2) SECONDS INR APTT (21-34) SECONDS Puncture Site pCO2 (35-45) mm/Hg pO2 (80-100) mm/Hg HCO3 (21-28) mmol/L ABG pH (7.35-7.45) ABG Total CO2 (22-28) mmol/L ABG O2 Saturation (95-98) % ABG Base Excess (-2.0-3.0) mmol/L Howard Test ABG Potassium (3.6-5.2) mmol/L A-a O2 Difference mm/Hg Respiratory Index Glucose (65-105) mg/dl Lactate (0.7-2.1) mmol/L Vent Mode Mechanical Rate FiO2 % Tidal Volume PEEP Sodium 144 (132-148) mmol/L Potassium 3.7 (3.6-5.2) mmol/L Chloride 112 H (98-107) mmol/L Carbon Dioxide 25 (22-30) mmol/L Anion Gap 11 (10-20) BUN 32 H (7-17) mg/dL Creatinine 1.8 H (0.7-1.2) mg/dL Est GFR ( Amer) 36 Est GFR (Non-Af Amer) 30 Random Glucose 140 H D (65-105) mg/dL Calcium 7.2 L (8.6-10.4) mg/dl Phosphorus 5.0 H (2.5-4.5) mg/dL Magnesium 1.6 (1.6-2.3) mg/dL Total Bilirubin 0.6 (0.2-1.3) mg/dL AST 881 H D (14-36) U/L ALT 543 H D (9-52) U/L Alkaline Phosphatase 77 (38-126) U/L Total Protein 5.3 L (6.3-8.3) g/dL Albumin 2.4 L D (3.5-5.0) g/dL Globulin 2.9 (2.2-3.9) gm/dL Albumin/Globulin Ratio 0.8 L (1.0-2.1) Thyroxine (T4) 22.3 H (5.5-11.0) ug/dL TSH 3rd Generation < 0.02 L (0.46-4.68) mIU/L Cortisol AM Sample 17.8 (4.46-22.7) ug/dL Arterial Blood Potassium (3.6-5.2) mmol/L 12/22/18 Range/Units 00:21 WBC (4.8-10.8) K/uL RBC (3.80-5.20) Mil/uL Hgb (11.0-16.0) g/dL Hct (34.0-47.0) % MCV (81.0-99.0) fL MCH (27.0-31.0) pg MCHC (33.0-37.0) g/dL RDW (11.5-14.5) % Plt Count (130-400) K/uL MPV (7.2-11.7) fL Neut % (Auto) (50.0-75.0) % Lymph % (Auto) (20.0-40.0) % [place] % (Auto) (0.0-10.0) % Eos % (Auto) (0.0-4.0) % Baso % (Auto) (0.0-2.0) % Neut # (Auto) (1.8-7.0) K/uL Lymph # (Auto) (1.0-4.3) K/uL [place] # (Auto) (0.0-0.8) K/uL Eos # (Auto) (0.0-0.7) K/uL Baso # (Auto) (0.0-0.2) K/uL PT (9.7-12.2) SECONDS INR APTT > 400 H* (21-34) SECONDS Puncture Site pCO2 (35-45) mm/Hg pO2 (80-100) mm/Hg HCO3 (21-28) mmol/L ABG pH (7.35-7.45) ABG Total CO2 (22-28) mmol/L ABG O2 Saturation (95-98) % ABG Base Excess (-2.0-3.0) mmol/L Howard Test ABG Potassium (3.6-5.2) mmol/L A-a O2 Difference mm/Hg Respiratory Index Glucose (65-105) mg/dl Lactate (0.7-2.1) mmol/L Vent Mode Mechanical Rate FiO2 % Tidal Volume PEEP Sodium (132-148) mmol/L Potassium (3.6-5.2) mmol/L Chloride (98-107) mmol/L Carbon Dioxide (22-30) mmol/L Anion Gap (10-20) BUN (7-17) mg/dL Creatinine (0.7-1.2) mg/dL Est GFR ( Amer) Est GFR (Non-Af Amer) Random Glucose (65-105) mg/dL Calcium (8.6-10.4) mg/dl Phosphorus (2.5-4.5) mg/dL Magnesium (1.6-2.3) mg/dL Total Bilirubin (0.2-1.3) mg/dL AST (14-36) U/L ALT (9-52) U/L Alkaline Phosphatase (38-126) U/L Total Protein (6.3-8.3) g/dL Albumin (3.5-5.0) g/dL Globulin (2.2-3.9) gm/dL Albumin/Globulin Ratio (1.0-2.1) Thyroxine (T4) (5.5-11.0) ug/dL TSH 3rd Generation (0.46-4.68) mIU/L Cortisol AM Sample (4.46-22.7) ug/dL Arterial Blood Potassium (3.6-5.2) mmol/L Laboratory Results - last 24 hr 12/22/18 12/22/18 12/22/18 00:21 04:49 04:49 WBC RBC Hgb Hct MCV MCH MCHC RDW Plt Count MPV Neut % (Auto) Lymph % (Auto) [place] % (Auto) Eos % (Auto) Baso % (Auto) Neut # (Auto) Lymph # (Auto) [place] # (Auto) Eos # (Auto) Baso # (Auto) PT INR APTT > 400 H* Puncture Site pCO2 pO2 HCO3 ABG pH ABG Total CO2 ABG O2 Saturation ABG Base Excess Howard Test ABG Potassium A-a O2 Difference Respiratory Index Glucose Lactate Vent Mode Mechanical Rate FiO2 Tidal Volume PEEP Sodium 144 Potassium 3.7 Chloride 112 H Carbon Dioxide 25 Anion Gap 11 BUN 32 H Creatinine 1.8 H Est GFR ( Amer) 36 Est GFR (Non-Af Amer) 30 Random Glucose 140 H D Calcium 7.2 L Phosphorus 5.0 H Magnesium 1.6 Total Bilirubin 0.6 AST 881 H D ALT 543 H D Alkaline Phosphatase 77 Total Protein 5.3 L Albumin 2.4 L D Globulin 2.9 Albumin/Globulin Ratio 0.8 L Thyroxine (T4) 22.3 H TSH 3rd Generation < 0.02 L Cortisol AM Sample 17.8 Arterial Blood Potassium 12/22/18 12/22/18 12/22/18 04:49 05:19 08:00 WBC 13.9 H D RBC 3.95 Hgb 11.0 Hct 33.8 L MCV 85.6 D MCH 27.9 MCHC 32.6 L RDW 14.9 H Plt Count 136 MPV 8.6 Neut % (Auto) 79.5 H Lymph % (Auto) 12.8 L [place] % (Auto) 7.7 Eos % (Auto) 0.0 Baso % (Auto) 0.0 Neut # (Auto) 11.0 H Lymph # (Auto) 1.8 [place] # (Auto) 1.1 H Eos # (Auto) 0.0 Baso # (Auto) 0.0 PT INR APTT > 400 H* Puncture Site Rr pCO2 34 L pO2 298 H HCO3 25.1 ABG pH 7.45 ABG Total CO2 24.6 ABG O2 Saturation 100.2 H ABG Base Excess 0.1 Howard Test Pos ABG Potassium 3.6 A-a O2 Difference 87.0 Respiratory Index 0.3 Glucose 131 H Lactate 1.3 Vent Mode Prvc Mechanical Rate 22 FiO2 60.0 Tidal Volume 400 PEEP 5 Sodium 145.0 Potassium Chloride 116.0 H Carbon Dioxide Anion Gap BUN Creatinine Est GFR ( Amer) Est GFR (Non-Af Amer) Random Glucose Calcium Phosphorus Magnesium Total Bilirubin AST ALT Alkaline Phosphatase Total Protein Albumin Globulin Albumin/Globulin Ratio Thyroxine (T4) TSH 3rd Generation Cortisol AM Sample Arterial Blood Potassium 3.6 12/22/18 08:55 WBC RBC Hgb Hct MCV MCH MCHC RDW Plt Count MPV Neut % (Auto) Lymph % (Auto) [place] % (Auto) Eos % (Auto) Baso % (Auto) Neut # (Auto) Lymph # (Auto) [place] # (Auto) Eos # (Auto) Baso # (Auto) PT 19.6 H INR 1.8 APTT > 400 H* Puncture Site pCO2 pO2 HCO3 ABG pH ABG Total CO2 ABG O2 Saturation ABG Base Excess Howard Test ABG Potassium A-a O2 Difference Respiratory Index Glucose Lactate Vent Mode Mechanical Rate FiO2 Tidal Volume PEEP Sodium Potassium Chloride Carbon Dioxide Anion Gap BUN Creatinine Est GFR ( Amer) Est GFR (Non-Af Amer) Random Glucose Calcium Phosphorus Magnesium Total Bilirubin AST ALT Alkaline Phosphatase Total Protein Albumin Globulin Albumin/Globulin Ratio Thyroxine (T4) TSH 3rd Generation Cortisol AM Sample Arterial Blood Potassium Radiology Impressions: Radiology Impressions Chest X-Ray 12/22/18 06:41 IMPRESSION: Central pulmonary vasculature is slightly increased. Mild bibasilar atelectasis and/or small infiltrates with small bilateral effusions right greater than left Chest CT 12/22/18 09:27 IMPRESSION: Limited exam due to suboptimal opacification of the pulmonary arteries as well as streak and beam hardening artifact arising from the upper extremities which have not been moved from the field of view. No definitive acute central pulmonary embolus however note that the distal branches are poorly delineated due to aforementioned limitations. Mild aneurysmal dilatation of the ascending thoracic aorta. Cardiomegaly. Small bilateral effusions and atelectasis right greater than left. Mild hazy ground-glass opacity in the left upper lobe. Enlarged thyroid gland. In situ ETT and NGT as detailed above. Attending/Attestation - Attestation I have personally seen and examined this patient.: Yes I have fully participated in the care of the patient.: Yes I have reviewed all pertinent clinical information: Yes Notes (Text): 12/22/18 18:17 I have seen and examined the patient. Medical records, lab studies, and imaging were reviewed by me and a management plan was formulated on multidisciplinary rounds with resident Dr. Karimi. I agree with their documented assessment and plan. Will lighten sedation, to start PS trials. Continue methimazole and steroids for thyrotoxicosis. Labetalol po for blood pressure and HR control. Critical Care Time 35 minutes. Multi-disciplinary rounds were performed with house staff, nursing, speech therapy, respiratory therapy, pharmacy and nutrition with integrated input from the primary team/attending and other consulting services. The documented time is cumulative and includes review of patient data/exams/labs/chart review and examination of the patient on rounds and throughout the day; time is exclusive of any procedures or teaching time. <Moncho Karimi - Last Filed: 12/22/18 19:24> CCU Subjective - Physician Review Subjective (Free Text): ICU Progress Note for Dr. Shin Pt seen and examined at bedside this am. Currently intubated and sedated. Unable to obtain further HPI or ROS due to current clinical status. No acute events reported overnight by staff. CCU Objective - Vital Signs / Intake & Output Vital Signs (Last 4 hours): Vital Signs Temp Pulse Resp BP Pulse Ox 12/22/18 06:00 118 H 22 100 12/22/18 05:50 131/83 12/22/18 05:00 99.5 F 119 H 23 100 12/22/18 04:50 158/89 H 12/22/18 04:00 100.6 F H 119 H 22 100 12/22/18 03:50 150/85 Intake and Output (Last 8hrs): Intake & Output 12/21/18 12/22/18 12/22/18 22:59 06:59 14:59 Intake Total 1469.4 1368.9 Output Total 790 400 Balance 679.4 968.9 Weight 155 lb Intake: IV 334 147 Intake, IV Amount 1135.4 1221.9 Right Medial Port Femoral 135.2 95.2 Right Proximal Port 34.4 18.9 Femoral left Hand 31.8 73.8 right AC 934 1034 Output: Urine 790 400 Urethral (Perez) 790 400 - Physical Exam Head: Positive for: Atraumatic, Normocephalic Pupils: Positive for: PERRL Extroacular Muscles: Positive for: EOMI. Negative for: Gaze Palsy Conjunctiva: Positive for: Normal Mouth: Positive for: Moist Mucous Membranes Neck: Positive for: Normal Range of Motion, Trachea Midline. Negative for: Meningeal Signs, MIDLINE TENDERNESS, Paraspinal Tenderness, JVD, Lymp hadenopathy, Bruit, Other Respiratory/Chest: Positive for: Clear to Auscultation, Good Air Exchange, Other (currently intubated on vent). Negative for: Respiratory Distress, Accessory Muscle Use, Wheezes, Rales, Rhonchi Cardiovascular: Positive for: Normal S1, S2, Tachycardic. Negative for: Murmurs, Rub, Gallop Abdomen: Positive for: Normal Bowel Sounds. Negative for: Tenderness, Distention, Mass/Organomegaly Upper Extremity: Positive for: Normal Inspection, NORMAL PULSES, Neurovascularly Intact, Capillary Refill < 2s. Negative for: Cyanosis, Edema Lower Extremity: Positive for: Normal Inspection, NORMAL PULSES, Neurovascularly Intact, Capillary Refill < 2 s. Negative for: Edema Neurological: Positive for: Other (currently intubated and sedated) Skin: Positive for: Warm, Dry, Normal Color Psychiatric: Positive for: Other (intubated and sedated) - Medications Active Medications: Active Medications Generic Name Dose Route Start Last Admin Trade Name Freq PRN Reason Stop Dose Admin Acetaminophen 650 mg 12/21/18 15:53 12/22/18 04:00 Tylenol 650mg/20.3ml Solution Ud GT 650 mg Q6 PRN Administration Temperature Hydrocortisone Sodium Succinate 50 mg 12/21/18 15:00 03/21/19 06:12 Solu-Cortef IV 50 mg Q8H [place] Administration Sodium Chloride 1,000 mls @ 100 mls/hr 12/21/18 04:15 12/22/18 05:38 Sodium Chloride 0.9% IV 100 mls/hr .Q10H [place] Administration Midazolam HCl 100 mg/ Dextrose 100 mls @ 1.42 mls/hr 12/21/18 04:30 12/22/18 05:46 IV Not Given .Q24H [place] Protocol 0.02 MG/KG/HR Norepinephrine Bitartrate 4 mg 254 mls @ 15.24 mls/hr 12/21/18 06:14 12/21/18 10:39 / Sodium Chloride IV 0 mcg/min .[id number] PRN 0 mls/hr TITRATE PER MD ORDER Titration Protocol 4 MCG/MIN Heparin Sodium/Sodium Chloride 25,000 units in 250 mls @ 12.737 mls/hr 12/21/18 06:36 12/22/18 02:00 Heparin 47000 Units/250ml 1/2 Normal Saline IV 12 units/kg/hr .[id number] PRN 8.491 mls/hr ADJUST RATE PER PROTOCOL Titration Protocol 18 UNITS/KG/HR Piperacillin Sod/Tazobactam Sod 3.375 gm in 50 mls @ 100 mls/hr 12/21/18 06:45 12/22/18 05:45 Zosyn 3.375 Gm Iv Premix IVPB 100 mls/hr Q6H [place] Administration Protocol Vancomycin HCl 1,000 mg/ 250 mls @ 166.6 mls/hr 12/21/18 06:45 12/22/18 05:45 Sodium Chloride IVPB 166.6 mls/hr Q12H [place] Administration Protocol Propofol 1,000 mg in 100 mls @ 2.123 mls/hr 12/21/18 07:42 12/22/18 05:00 Diprivan IV 20 mcg/kg/min .Q24H PRN 8.491 mls/hr TITRATE PER MD ORDER Titration Protocol 5 MCG/KG/MIN Influenza Virus Vaccine 60 mcg 12/23/18 10:00 Flucelvax Quad [id number] Syr IM 12/23/18 10:01 .ONCE ONE Methimazole 20 mg 12/21/18 06:30 12/22/18 05:37 Tapazole PO 20 mg Q8H [place] Administration Metoprolol Tartrate 25 mg 12/21/18 18:00 12/21/18 18:00 Lopressor PO 25 mg BID [place] Administration Pantoprazole Sodium 40 mg 12/21/18 10:15 12/21/18 10:28 Protonix Inj IVP 40 mg DAILY [place] Administration - Patient Studies Lab Studies: Lab Studies 12/22/18 12/22/18 12/22/18 Range/Units 05:19 04:49 04:49 WBC 13.9 H D (4.8-10.8) K/uL RBC 3.95 (3.80-5.20) Mil/uL Hgb 11.0 (11.0-16.0) g/dL Hct 33.8 L (34.0-47.0) % MCV 85.6 D (81.0-99.0) fL MCH 27.9 (27.0-31.0) pg MCHC 32.6 L (33.0-37.0) g/dL RDW 14.9 H (11.5-14.5) % Plt Count 136 (130-400) K/uL MPV 8.6 (7.2-11.7) fL Neut % (Auto) 79.5 H (50.0-75.0) % Lymph % (Auto) 12.8 L (20.0-40.0) % [place] % (Auto) 7.7 (0.0-10.0) % Eos % (Auto) 0.0 (0.0-4.0) % Baso % (Auto) 0.0 (0.0-2.0) % Neut # (Auto) 11.0 H (1.8-7.0) K/uL Lymph # (Auto) 1.8 (1.0-4.3) K/uL [place] # (Auto) 1.1 H (0.0-0.8) K/uL Eos # (Auto) 0.0 (0.0-0.7) K/uL Baso # (Auto) 0.0 (0.0-0.2) K/uL APTT (21-34) SECONDS Puncture Site Rr pCO2 34 L (35-45) mm/Hg pO2 298 H (80-100) mm/Hg HCO3 25.1 (21-28) mmol/L ABG pH 7.45 (7.35-7.45) ABG Total CO2 24.6 (22-28) mmol/L ABG O2 Saturation 100.2 H (95-98) % ABG Base Excess 0.1 (-2.0-3.0) mmol/L Howard Test Pos ABG Potassium 3.6 (3.6-5.2) mmol/L A-a O2 Difference 87.0 mm/Hg Respiratory Index 0.3 Glucose 131 H (65-105) mg/dl Lactate 1.3 (0.7-2.1) mmol/L Vent Mode Prvc Mechanical Rate 22 FiO2 60.0 % Tidal Volume 400 PEEP 5 Crit Value Called To Crit Value Called By Crit Value Read Back Blood Gas Notified Time Sodium 145.0 144 (132-148) mmol/L Potassium 3.7 (3.6-5.2) mmol/L Chloride 116.0 H 112 H (98-107) mmol/L Carbon Dioxide 25 (22-30) mmol/L Anion Gap 11 (10-20) BUN 32 H (7-17) mg/dL Creatinine 1.8 H (0.7-1.2) mg/dL Est GFR ( Amer) 36 Est GFR (Non-Af Amer) 30 Random Glucose 140 H D (65-105) mg/dL Calcium 7.2 L (8.6-10.4) mg/dl Phosphorus 5.0 H (2.5-4.5) mg/dL Magnesium 1.6 (1.6-2.3) mg/dL Total Bilirubin 0.6 (0.2-1.3) mg/dL AST 881 H D (14-36) U/L ALT 543 H D (9-52) U/L Alkaline Phosphatase 77 (38-126) U/L Total Creatine Kinase (30-135) U/L CK-MB (Mass) (0.0-3.38) ng/mL Troponin I (0.00-0.120) ng/mL Total Protein 5.3 L (6.3-8.3) g/dL Albumin 2.4 L D (3.5-5.0) g/dL Globulin 2.9 (2.2-3.9) gm/dL Albumin/Globulin Ratio 0.8 L (1.0-2.1) Thyroxine (T4) 22.3 H (5.5-11.0) ug/dL Free T3 pg/mL (2.77-5.27) pg/mL Total T3 (1.49-2.60) nmol/L TSH 3rd Generation < 0.02 L (0.46-4.68) mIU/L Cortisol AM Sample (4.46-22.7) ug/dL Arterial Blood Potassium 3.6 (3.6-5.2) mmol/L Urine Opiates Screen (NEGATIVE) Urine Methadone Screen (NEGATIVE) Ur Barbiturates Screen (NEGATIVE) Ur Phencyclidine Scrn (NEGATIVE) Ur Amphetamines Screen (NEGATIVE) U Benzodiazepines Scrn (NEGATIVE) U Oth Cocaine Metabols (NEGATIVE) U Cannabinoids Screen (NEGATIVE) 12/22/18 12/22/18 12/21/18 Range/Units 04:49 00:21 15:57 WBC (4.8-10.8) K/uL RBC (3.80-5.20) Mil/uL Hgb (11.0-16.0) g/dL Hct (34.0-47.0) % MCV (81.0-99.0) fL MCH (27.0-31.0) pg MCHC (33.0-37.0) g/dL RDW (11.5-14.5) % Plt Count (130-400) K/uL MPV (7.2-11.7) fL Neut % (Auto) (50.0-75.0) % Lymph % (Auto) (20.0-40.0) % [place] % (Auto) (0.0-10.0) % Eos % (Auto) (0.0-4.0) % Baso % (Auto) (0.0-2.0) % Neut # (Auto) (1.8-7.0) K/uL Lymph # (Auto) (1.0-4.3) K/uL [place] # (Auto) (0.0-0.8) K/uL Eos # (Auto) (0.0-0.7) K/uL Baso # (Auto) (0.0-0.2) K/uL APTT > 400 H* > 400 H* D (21-34) SECONDS Puncture Site pCO2 (35-45) mm/Hg pO2 (80-100) mm/Hg HCO3 (21-28) mmol/L ABG pH (7.35-7.45) ABG Total CO2 (22-28) mmol/L ABG O2 Saturation (95-98) % ABG Base Excess (-2.0-3.0) mmol/L Howard Test ABG Potassium (3.6-5.2) mmol/L A-a O2 Difference mm/Hg Respiratory Index Glucose (65-105) mg/dl Lactate (0.7-2.1) mmol/L Vent Mode Mechanical Rate FiO2 % Tidal Volume PEEP Crit Value Called To Crit Value Called By Crit Value Read Back Blood Gas Notified Time Sodium (132-148) mmol/L Potassium (3.6-5.2) mmol/L Chloride (98-107) mmol/L Carbon Dioxide (22-30) mmol/L Anion Gap (10-20) BUN (7-17) mg/dL Creatinine (0.7-1.2) mg/dL Est GFR ( Amer) Est GFR (Non-Af Amer) Random Glucose (65-105) mg/dL Calcium (8.6-10.4) mg/dl Phosphorus (2.5-4.5) mg/dL Magnesium (1.6-2.3) mg/dL Total Bilirubin (0.2-1.3) mg/dL AST (14-36) U/L ALT (9-52) U/L Alkaline Phosphatase (38-126) U/L Total Creatine Kinase (30-135) U/L CK-MB (Mass) (0.0-3.38) ng/mL Troponin I (0.00-0.120) ng/mL Total Protein (6.3-8.3) g/dL Albumin (3.5-5.0) g/dL Globulin (2.2-3.9) gm/dL Albumin/Globulin Ratio (1.0-2.1) Thyroxine (T4) (5.5-11.0) ug/dL Free T3 pg/mL (2.77-5.27) pg/mL Total T3 (1.49-2.60) nmol/L TSH 3rd Generation (0.46-4.68) mIU/L Cortisol AM Sample 17.8 (4.46-22.7) ug/dL Arterial Blood Potassium (3.6-5.2) mmol/L Urine Opiates Screen (NEGATIVE) Urine Methadone Screen (NEGATIVE) Ur Barbiturates Screen (NEGATIVE) Ur Phencyclidine Scrn (NEGATIVE) Ur Amphetamines Screen (NEGATIVE) U Benzodiazepines Scrn (NEGATIVE) U Oth Cocaine Metabols (NEGATIVE) U Cannabinoids Screen (NEGATIVE) 12/21/18 12/21/18 12/21/18 Range/Units 12:25 10:04 09:22 WBC (4.8-10.8) K/uL RBC (3.80-5.20) Mil/uL Hgb (11.0-16.0) g/dL Hct (34.0-47.0) % MCV (81.0-99.0) fL MCH (27.0-31.0) pg MCHC (33.0-37.0) g/dL RDW (11.5-14.5) % Plt Count (130-400) K/uL MPV (7.2-11.7) fL Neut % (Auto) (50.0-75.0) % Lymph % (Auto) (20.0-40.0) % [place] % (Auto) (0.0-10.0) % Eos % (Auto) (0.0-4.0) % Baso % (Auto) (0.0-2.0) % Neut # (Auto) (1.8-7.0) K/uL Lymph # (Auto) (1.0-4.3) K/uL [place] # (Auto) (0.0-0.8) K/uL Eos # (Auto) (0.0-0.7) K/uL Baso # (Auto) (0.0-0.2) K/uL APTT (21-34) SECONDS Puncture Site pCO2 (35-45) mm/Hg pO2 (80-100) mm/Hg HCO3 (21-28) mmol/L ABG pH (7.35-7.45) ABG Total CO2 (22-28) mmol/L ABG O2 Saturation (95-98) % ABG Base Excess (-2.0-3.0) mmol/L Howard Test ABG Potassium (3.6-5.2) mmol/L A-a O2 Difference mm/Hg Respiratory Index Glucose (65-105) mg/dl Lactate (0.7-2.1) mmol/L Vent Mode Mechanical Rate FiO2 % Tidal Volume PEEP Crit Value Called To Crit Value Called By Crit Value Read Back Blood Gas Notified Time Sodium 145 (132-148) mmol/L Potassium 3.5 L (3.6-5.2) mmol/L Chloride 112 H (98-107) mmol/L Carbon Dioxide 26 (22-30) mmol/L Anion Gap 10 (10-20) BUN 20 H (7-17) mg/dL Creatinine 1.1 (0.7-1.2) mg/dL Est GFR ( Amer) > 60 Est GFR (Non-Af Amer) 53 Random Glucose 108 H D (65-105) mg/dL Calcium 8.8 (8.6-10.4) mg/dl Phosphorus (2.5-4.5) mg/dL Magnesium (1.6-2.3) mg/dL Total Bilirubin (0.2-1.3) mg/dL AST (14-36) U/L ALT (9-52) U/L Alkaline Phosphatase (38-126) U/L Total Creatine Kinase (30-135) U/L CK-MB (Mass) (0.0-3.38) ng/mL Troponin I (0.00-0.120) ng/mL Total Protein (6.3-8.3) g/dL Albumin (3.5-5.0) g/dL Globulin (2.2-3.9) gm/dL Albumin/Globulin Ratio (1.0-2.1) Thyroxine (T4) (5.5-11.0) ug/dL Free T3 pg/mL > 22.80 H (2.77-5.27) pg/mL Total T3 (1.49-2.60) nmol/L TSH 3rd Generation (0.46-4.68) mIU/L Cortisol AM Sample (4.46-22.7) ug/dL Arterial Blood Potassium (3.6-5.2) mmol/L Urine Opiates Screen Negative (NEGATIVE) Urine Methadone Screen Negative (NEGATIVE) Ur Barbiturates Screen Negative (NEGATIVE) Ur Phencyclidine Scrn Negative (NEGATIVE) Ur Amphetamines Screen Negative (NEGATIVE) U Benzodiazepines Scrn Negative (NEGATIVE) U Oth Cocaine Metabols Negative (NEGATIVE) U Cannabinoids Screen Negative (NEGATIVE) 12/21/18 12/21/18 12/21/18 Range/Units 08:20 06:42 06:42 WBC (4.8-10.8) K/uL RBC (3.80-5.20) Mil/uL Hgb (11.0-16.0) g/dL Hct (34.0-47.0) % MCV (81.0-99.0) fL MCH (27.0-31.0) pg MCHC (33.0-37.0) g/dL RDW (11.5-14.5) % Plt Count (130-400) K/uL MPV (7.2-11.7) fL Neut % (Auto) (50.0-75.0) % Lymph % (Auto) (20.0-40.0) % [place] % (Auto) (0.0-10.0) % Eos % (Auto) (0.0-4.0) % Baso % (Auto) (0.0-2.0) % Neut # (Auto) (1.8-7.0) K/uL Lymph # (Auto) (1.0-4.3) K/uL [place] # (Auto) (0.0-0.8) K/uL Eos # (Auto) (0.0-0.7) K/uL Baso # (Auto) (0.0-0.2) K/uL APTT (21-34) SECONDS Puncture Site Rba pCO2 32 L (35-45) mm/Hg pO2 322 H (80-100) mm/Hg HCO3 18.8 L (21-28) mmol/L ABG pH 7.33 L (7.35-7.45) ABG Total CO2 17.9 L (22-28) mmol/L ABG O2 Saturation 100.2 H (95-98) % ABG Base Excess -7.9 L (-2.0-3.0) mmol/L Howard Test Na ABG Potassium 4.8 (3.6-5.2) mmol/L A-a O2 Difference 66.0 mm/Hg Respiratory Index 0.2 Glucose 137 H (65-105) mg/dl Lactate 8.3 H* (0.7-2.1) mmol/L Vent Mode Prvc Mechanical Rate 22 FiO2 60.0 % Tidal Volume 400 PEEP 5 Crit Value Called To Crit Value Called By Kalyn,sj Crit Value Read Back Y Blood Gas Notified Time 825 Sodium 145.0 141 (132-148) mmol/L Potassium 6.8 H* D (3.6-5.2) mmol/L Chloride 118.0 H 107 (98-107) mmol/L Carbon Dioxide 23 (22-30) mmol/L Anion Gap 18 (10-20) BUN 10 (7-17) mg/dL Creatinine 0.8 (0.7-1.2) mg/dL Est GFR ( Amer) > 60 Est GFR (Non-Af Amer) > 60 Random Glucose 236 H D (65-105) mg/dL Calcium 9.2 (8.6-10.4) mg/dl Phosphorus 8.2 H (2.5-4.5) mg/dL Magnesium 1.9 (1.6-2.3) mg/dL Total Bilirubin 0.3 (0.2-1.3) mg/dL AST 51 H (14-36) U/L ALT 14 (9-52) U/L Alkaline Phosphatase 77 (38-126) U/L Total Creatine Kinase 50 (30-135) U/L CK-MB (Mass) 2.69 (0.0-3.38) ng/mL Troponin I 0.4120 H* (0.00-0.120) ng/mL Total Protein 4.0 L (6.3-8.3) g/dL Albumin 1.8 L D (3.5-5.0) g/dL Globulin 2.2 (2.2-3.9) gm/dL Albumin/Globulin Ratio 0.8 L (1.0-2.1) Thyroxine (T4) (5.5-11.0) ug/dL Free T3 pg/mL (2.77-5.27) pg/mL Total T3 8.15 H (1.49-2.60) nmol/L TSH 3rd Generation < 0.02 L < 0.02 L (0.46-4.68) mIU/L Cortisol AM Sample (4.46-22.7) ug/dL Arterial Blood Potassium 4.8 (3.6-5.2) mmol/L Urine Opiates Screen (NEGATIVE) Urine Methadone Screen (NEGATIVE) Ur Barbiturates Screen (NEGATIVE) Ur Phencyclidine Scrn (NEGATIVE) Ur Amphetamines Screen (NEGATIVE) U Benzodiazepines Scrn (NEGATIVE) U Oth Cocaine Metabols (NEGATIVE) U Cannabinoids Screen (NEGATIVE) Laboratory Results - last 24 hr 12/21/18 12/21/18 12/21/18 06:42 06:42 08:20 WBC RBC Hgb Hct MCV MCH MCHC RDW Plt Count MPV Neut % (Auto) Lymph % (Auto) [place] % (Auto) Eos % (Auto) Baso % (Auto) Neut # (Auto) Lymph # (Auto) [place] # (Auto) Eos # (Auto) Baso # (Auto) APTT Puncture Site Rba pCO2 32 L pO2 322 H HCO3 18.8 L ABG pH 7.33 L ABG Total CO2 17.9 L ABG O2 Saturation 100.2 H ABG Base Excess -7.9 L Howard Test Na ABG Potassium 4.8 A-a O2 Difference 66.0 Respiratory Index 0.2 Glucose 137 H Lactate 8.3 H* Vent Mode Prvc Mechanical Rate 22 FiO2 60.0 Tidal Volume 400 PEEP 5 Crit Value Called To Crit Value Called By Kalyn,reconditioning associate Crit Value Read Back Y Blood Gas Notified Time 825 Sodium 141 145.0 Potassium 6.8 H* D Chloride 107 118.0 H Carbon Dioxide 23 Anion Gap 18 BUN 10 Creatinine 0.8 Est GFR ( Amer) > 60 Est GFR (Non-Af Amer) > 60 Random Glucose 236 H D Calcium 9.2 Phosphorus 8.2 H Magnesium 1.9 Total Bilirubin 0.3 AST 51 H ALT 14 Alkaline Phosphatase 77 Total Creatine Kinase 50 CK-MB (Mass) 2.69 Troponin I 0.4120 H* Total Protein 4.0 L Albumin 1.8 L D Globulin 2.2 Albumin/Globulin Ratio 0.8 L Thyroxine (T4) Free T3 pg/mL Total T3 8.15 H TSH 3rd Generation < 0.02 L < 0.02 L Cortisol AM Sample Arterial Blood Potassium 4.8 Urine Opiates Screen Urine Methadone Screen Ur Barbiturates Screen Ur Phencyclidine Scrn Ur Amphetamines Screen U Benzodiazepines Scrn U Oth Cocaine Metabols U Cannabinoids Screen 12/21/18 12/21/18 12/21/18 09:22 10:04 12:25 WBC RBC Hgb Hct MCV MCH MCHC RDW Plt Count MPV Neut % (Auto) Lymph % (Auto) [place] % (Auto) Eos % (Auto) Baso % (Auto) Neut # (Auto) Lymph # (Auto) [place] # (Auto) Eos # (Auto) Baso # (Auto) APTT Puncture Site pCO2 pO2 HCO3 ABG pH ABG Total CO2 ABG O2 Saturation ABG Base Excess Howard Test ABG Potassium A-a O2 Difference Respiratory Index Glucose Lactate Vent Mode Mechanical Rate FiO2 Tidal Volume PEEP Crit Value Called To Crit Value Called By Crit Value Read Back Blood Gas Notified Time Sodium 145 Potassium 3.5 L Chloride 112 H Carbon Dioxide 26 Anion Gap 10 BUN 20 H Creatinine 1.1 Est GFR ( Amer) > 60 Est GFR (Non-Af Amer) 53 Random Glucose 108 H D Calcium 8.8 Phosphorus Magnesium Total Bilirubin AST ALT Alkaline Phosphatase Total Creatine Kinase CK-MB (Mass) Troponin I Total Protein Albumin Globulin Albumin/Globulin Ratio Thyroxine (T4) Free T3 pg/mL > 22.80 H Total T3 TSH 3rd Generation Cortisol AM Sample Arterial Blood Potassium Urine Opiates Screen Negative Urine Methadone Screen Negative Ur Barbiturates Screen Negative Ur Phencyclidine Scrn Negative Ur Amphetamines Screen Negative U Benzodiazepines Scrn Negative U Oth Cocaine Metabols Negative U Cannabinoids Screen Negative 12/21/18 12/22/18 12/22/18 15:57 00:21 04:49 WBC RBC Hgb Hct MCV MCH MCHC RDW Plt Count MPV Neut % (Auto) Lymph % (Auto) [place] % (Auto) Eos % (Auto) Baso % (Auto) Neut # (Auto) Lymph # (Auto) [place] # (Auto) Eos # (Auto) Baso # (Auto) APTT > 400 H* D > 400 H* Puncture Site pCO2 pO2 HCO3 ABG pH ABG Total CO2 ABG O2 Saturation ABG Base Excess Howard Test ABG Potassium A-a O2 Difference Respiratory Index Glucose Lactate Vent Mode Mechanical Rate FiO2 Tidal Volume PEEP Crit Value Called To Crit Value Called By Crit Value Read Back Blood Gas Notified Time Sodium Potassium Chloride Carbon Dioxide Anion Gap BUN Creatinine Est GFR ( Amer) Est GFR (Non-Af Amer) Random Glucose Calcium Phosphorus Magnesium Total Bilirubin AST ALT Alkaline Phosphatase Total Creatine Kinase CK-MB (Mass) Troponin I Total Protein Albumin Globulin Albumin/Globulin Ratio Thyroxine (T4) Free T3 pg/mL Total T3 TSH 3rd Generation Cortisol AM Sample 17.8 Arterial Blood Potassium Urine Opiates Screen Urine Methadone Screen Ur Barbiturates Screen Ur Phencyclidine Scrn Ur Amphetamines Screen U Benzodiazepines Scrn U Oth Cocaine Metabols U Cannabinoids Screen 12/22/18 12/22/18 12/22/18 04:49 04:49 05:19 WBC 13.9 H D RBC 3.95 Hgb 11.0 Hct 33.8 L MCV 85.6 D MCH 27.9 MCHC 32.6 L RDW 14.9 H Plt Count 136 MPV 8.6 Neut % (Auto) 79.5 H Lymph % (Auto) 12.8 L [place] % (Auto) 7.7 Eos % (Auto) 0.0 Baso % (Auto) 0.0 Neut # (Auto) 11.0 H Lymph # (Auto) 1.8 [place] # (Auto) 1.1 H Eos # (Auto) 0.0 Baso # (Auto) 0.0 APTT Puncture Site Rr pCO2 34 L pO2 298 H HCO3 25.1 ABG pH 7.45 ABG Total CO2 24.6 ABG O2 Saturation 100.2 H ABG Base Excess 0.1 Howard Test Pos ABG Potassium 3.6 A-a O2 Difference 87.0 Respiratory Index 0.3 Glucose 131 H Lactate 1.3 Vent Mode Prvc Mechanical Rate 22 FiO2 60.0 Tidal Volume 400 PEEP 5 Crit Value Called To Crit Value Called By Crit Value Read Back Blood Gas Notified Time Sodium 144 145.0 Potassium 3.7 Chloride 112 H 116.0 H Carbon Dioxide 25 Anion Gap 11 BUN 32 H Creatinine 1.8 H Est GFR ( Amer) 36 Est GFR (Non-Af Amer) 30 Random Glucose 140 H D Calcium 7.2 L Phosphorus 5.0 H Magnesium 1.6 Total Bilirubin 0.6 AST 881 H D ALT 543 H D Alkaline Phosphatase 77 Total Creatine Kinase CK-MB (Mass) Troponin I Total Protein 5.3 L Albumin 2.4 L D Globulin 2.9 Albumin/Globulin Ratio 0.8 L Thyroxine (T4) 22.3 H Free T3 pg/mL Total T3 TSH 3rd Generation < 0.02 L Cortisol AM Sample Arterial Blood Potassium 3.6 Urine Opiates Screen Urine Methadone Screen Ur Barbiturates Screen Ur Phencyclidine Scrn Ur Amphetamines Screen U Benzodiazepines Scrn U Oth Cocaine Metabols U Cannabinoids Screen Radiology Impressions: Radiology Impressions Chest X-Ray 12/21/18 01:11 IMPRESSION: Minimal-mild pulmonary venous congestion. Mild cardiomegaly. Comments: No preliminary ER impression at this time. Head CT 12/21/18 02:59 IMPRESSION: Limited study given suboptimal patient positioning. Streak artifact in the posterior fossa limits evaluation at that level. No acute intracranial abnormality. If symptoms persists, consider correlation with MRI. A preliminary report was generated at 4:14 a.m. on 12/21/[address] Tiesha Wright from [employer]. Chest X-Ray 12/21/18 03:51 IMPRESSION: Interval insertion endotracheal tube-tip in right mainstem bronchus-subsequently noted a follow-up study to have been retracted approximately Cardiomegaly and mild pulmonary venous congestion suggested. Pulmonary venous congestion appears increased compared the prior study. Chest X-Ray 12/21/18 03:51 IMPRESSION: Interval repositioning of the endotracheal tube-as above now satisfactory. The current mild pulmonary venous congestion is less now than before. Chest X-Ray 12/21/18 06:21 IMPRESSION: Interval insertion nasogastric tube. Tip positions satisfactory. Endotracheal tube tip clavicle level satisfactory. Cardiomegaly and mild pulmonary venous congestion-grossly similar. Possible layering left pleural effusions small dense consolidation appreciated. Duplex Scan Lower Extremity Artery 12/21/18 06:37 IMPRESSION: No evidence of deep or superficial vein thrombosis of bilateral lower extremities, as visualized. EKG/Cardiology Studies: Cardiology / EKG Studies 12/21/18 09:19 EKG [ELECTROCARDIOGRAM] Stat Comment: Mode Of Transportation: Reason For Exam: s/p cardiac arrest Review of Systems - Review of Systems Systems not reviewed;Unavailable: Intubated Assessment/Plan - Assessment and Plan (Free Text) Assessment: 48 y o female PMhx HTN, hyperthyroidism, TIA, anxiety, asthma, Grave's disease, who presented to the ED overnight with c/o severe abd pain, n/v. Per ED pt did not take home meds for about 3 wks, non-compliant with therapy. Pt presented hypertensive and tachycardic in ED, TSH < 0.02 on initial bloodwork, was given IV Labetalol and PO Inderal in the ED. Pt's bp began to drop after and was given fluids and IV glucagon. Pt was evaluated and accepted by ICU team at time, however prior to transfer, started to become bradycardic and went pulseless. Zandra Sanchez was called in ED and pt was resuscitated, ROSC achieved s/p epi x1. Pt subsequently was intubated and placed on mechanical vent. Pt had 2 additional episodes of cardiac arrest while being transferred to ICU that lasted 3-4 mins of chest compressions, received total epi x3 and atropine x1. ROSC achieved, pt had R femoral line placed, started on Levophed drip. Bedside echo revealed severely dilated R ventricle, raising suspicion for possible PE, pt was bolused and started on Heparin drip. Pt also has severe hypokinesis of L ventricle. Pt presented with severe metabolic acidosis, hyperkalemia and hypoglycemia. S/p 4 amps bicarb, 1 amp Ca gluconate, 1 amp D50. Currently being monitored in ICU, in tubated on vent and sedated. Admitted for ICU for management of thyrotoxicosis. Plan: Neuro: -Intubated and sedated on vent, Versed drip, wean off as tolerated -Cont to monitor -Head CT on admission: Limited study given suboptimal pt positing. Streak artifact in posterior fossa limits eval at that level. No acute intracranial abnormality. Cardio: -Tachycardia persistent, hypotensive -Levophed drip d/c'd -Metoprolol 25 mg bid -Solu-cortef 50 mg tid -Echo: LV function severely reduced with diffuse hypokineses, LVEF 15%. Inferoapex and apical-septum akinetic. LSub optimal assessment of wall motion due to reduced study quality, apex not well seen. IV echo contrast would have improved assessment. R ventricle mod-markedly dilated. RVSF mod reduced. Mild aortic regurg. Mod tricuspid regurg. Ascending aorta mildly dilated -Hyperkalemia resolved s/p rx, cont to trend on labs -Venous duplex LE b/l neg for DVT -S/p placement of R femoral triple lumen catheter -Cardiology consulted (Dr. Bah), recs appreciated -CT angio chest neg for PE, Heparin drip held Pulm: -Currently on vent, sedated with Versed, wean off as tolerated -Metabolic acidosis improving with most recent ABG -Recent CXR: Central pulm vasculature slightly increased. Mild bibasilar atelectasis and/or small infiltrates with small b/l effusions R > L. -Leukocytosis trending up -C/w Vanc/zosyn GI: -NPO -IVF at 100 cc/hr -Protonix -Unable to assess abd pain currently 2/2 pt's current mental status -Transaminitis present, may be 2/2 to shock liver, cont to trend Heme: -H/H downtrending, may be 2/2 dilutional effect, cont to trend -No leukocytosis ID: -Leukocytosis, cont to trend -Vanco/zosyn -Blood cx pending Endo: -Hx Grave's disease, pt non-compliant with home meds x3 weeks -TSH < 0.02 on admission -R/o thyroid storm? as etiology of symptoms -Endocrinology (Dr. Weaver) consulted, recs appreciated -Methimazole 20 mg PO q8h, Solu-cortef 50 mg q8h -T4, thyroid Ig, serum cortisol ordered Renal: -BUN/Cr 32/1.8, trending up cont to monitor -Cont to trend I's/O's PPX: -Protonix -Heparin, SCD Pt seen, examined with, and plan discussed with Dr. Shin, attending physician. Moncho Karimi DO PGY-1, [employer] Pager #[phone]
[2018-12-22 09:19] LABS: INR 1.8; PROTHROMBIN TIME 19.6 SECONDS (9.7-12.2)
[2018-12-22 09:27] LABS: PARTIAL THROMBOPLASTIN TIME > 400 SECONDS (21-34)
--- NOTE | 2018-12-22 09:31 | RAD ---
Date of service: 12/22/2018 HISTORY: vented COMPARISON: No prior. FINDINGS: In situ ETT, tip of which lies approximately 4.85 cm above michael. In situ NGT, tip of which lies within the left upper quadrant of the abdomen. LUNGS: Central pulmonary vasculature is slightly increased. Mild bibasilar atelectasis and/or small infiltrates with small bilateral effusions right greater than left PLEURA: No significant pleural effusion identified, no pneumothorax apparent. CARDIOVASCULAR: No aortic atherosclerotic calcification present. . Heart remains enlarged.. No pulmonary vascular congestion. OSSEOUS STRUCTURES: No significant abnormalities. VISUALIZED UPPER ABDOMEN: Normal. OTHER FINDINGS: None. IMPRESSION: Central pulmonary vasculature is slightly increased. Mild bibasilar atelectasis and/or small infiltrates with small bilateral effusions right greater than left
[2018-12-22] MEDS ORDERED: Iodixanol 320 MG/ML 100 ML BOTTLE IV ONE (09:39)
--- NOTE | 2018-12-22 10:07 | CP.PCM.CON ---
History of Present Illness - History of Present Illness History of Present Illness: 48yo female PMHx HTN, Hyperthyroidism, TIA, anxiety, asthma and Grave's dx presented to the ER overnight with complaints of severe abdominal pain, nausea, and vomiting. As per EMR, patient had not taken home medications for ~3 weeks an d is noncompliant. In the ER, patient's BP was elevated and patient was tachycardic with HR 154bpm. Patient was noted to have a TSH <0.02 on initial blood work and was given IV labetalol 20mg and PO Inderal 40mg in the ER. Patient's BP began to drop and she was given fluids and glucaogon. Patient was evaluated and accepted by MICU team, however prior to transfer, she started to become bradycardic and pulseless. Code Blue was called in the ER and patient was resuscitated and ROSC was achieved s/p 1 epi. Patient was intubated and placed on mechanical vent. When patient was transferred to the MICU, she had two more episodes of cardiac arrest that lasted 3-4 minutes of chest compressions. Patien t received a total of 3 x epinephrine and 1 x atropine. ROSC was achieved and patient had R femoral line placed and was started on levophed gtt. Bedside echo revealed severely dilated RV raising suspicion for possible PE; patient bolused and started on heparin gtt. Patient also has severe hypokinesis of LV. ABG revealed severe metabolic acidosis, hyperkalemic and hypoglycemic. She received 4amps biacrb, 1amp calcium gluconate, and 1amp D50. Currently: INtubated FIO2 60% Sinus tach on TELE 120'-130's Review of Systems - Review of Systems Systems not reviewed;Unavailable: Other (unable to eval due to intubation/sedation) Past Patient History - Infectious Disease Hx of Infectious Diseases: None - Past Medical History & Family History Past Medical History?: Yes - Past Social History Smoking Status: Never Smoked - CARDIAC Hx Cardiac Disorders: Yes Hx Hypertension: Yes - PULMONARY Hx Respiratory Disorders: Yes Hx Asthma: Yes - NEUROLOGICAL Hx Neurological Disorder: No - HEENT Hx HEENT Problems: Yes Other/Comment: uses glasses for reading - RENAL Hx Chronic Kidney Disease: No - ENDOCRINE/METABOLIC Hx Endocrine Disorders: Yes Hx Hyperthyroidism: Yes Hx Hypothyroidism: Yes - HEMATOLOGICAL/ONCOLOGICAL Hx Blood Disorders: No - INTEGUMENTARY Hx Dermatological Problems: No - MUSCULOSKELETAL/RHEUMATOLOGICAL Hx Musculoskeletal Disorders: Yes Hx Falls: Yes - GASTROINTESTINAL Hx Gastrointestinal Disorders: No - GENITOURINARY/GYNECOLOGICAL Hx Genitourinary Disorders: No - PSYCHIATRIC Hx Psychophysiologic Disorder: Yes Hx Anxiety: Yes - SURGICAL HISTORY Hx Surgeries: No - ANESTHESIA Hx Anesthesia: No Hx Anesthesia Reactions: No Hx Malignant Hyperthermia: No Has any member of the family had a problem w/ anesthesia?: No Meds Allergies/Adverse Reactions: Allergies Allergy/AdvReac Type Severity Reaction Status Date / Time No Known Allergies Allergy Verified 04/16/16 12:57 - Medications Medications: Current Medications Acetaminophen (Tylenol 650mg/20.3ml Solution Ud) 650 mg GT Q6 PRN PRN Reason: Temperature Last Admin: 12/22/18 04:00 Dose: 650 mg Hydrocortisone Sodium Succinate (Solu-Cortef) 50 mg IV Q8H [place] Last Admin: 12/22/18 06:12 Dose: 50 mg Sodium Chloride (Sodium Chloride 0.9%) 1,000 mls @ 100 mls/hr IV .Q10H [place] Last Admin: 12/22/18 05:38 Dose: 100 mls/hr Midazolam HCl 100 mg/ Dextrose 100 mls @ 1.42 mls/hr IV .Q24H [place]; Protocol Last Titration: 12/22/18 08:13 Dose: 0 mg/kg/hr, 0 mls/hr Norepinephrine Bitartrate 4 mg (/ Sodium Chloride) 254 mls @ 15.24 mls/hr IV .[id number] PRN; Protocol PRN Reason: TITRATE PER MD ORDER Last Titration: 12/21/18 10:39 Dose: 0 mcg/min, 0 mls/hr Heparin Sodium/Sodium Chloride (Heparin 01543 Units/250ml 1/2 Normal Saline) 25,000 units in 250 mls @ 12.737 mls/hr IV .[id number] PRN; Protocol PRN Reason: ADJUST RATE PER PROTOCOL Last Titration: 12/22/18 09:00 Dose: 0 units/kg/hr, 0 mls/hr Piperacillin Sod/Tazobactam Sod (Zosyn 3.375 Gm Iv Premix) 3.375 gm in 50 mls @ 100 mls/hr IVPB Q6H [place]; Protocol Last Admin: 12/22/18 05:45 Dose: 100 mls/hr Vancomycin HCl 1,000 mg/ (Sodium Chloride) 250 mls @ 166.6 mls/hr IVPB Q12H [place]; Protocol Last Admin: 12/22/18 05:45 Dose: 166.6 mls/hr Propofol (Diprivan) 1,000 mg in 100 mls @ 2.123 mls/hr IV .Q24H PRN; Protocol PRN Reason: TITRATE PER MD ORDER Last Titration: 12/22/18 09:30 Dose: 10 mcg/kg/min, 4.246 mls/hr Influenza Virus Vaccine (Flucelvax Quad [id number] Syr) 60 mcg IM .ONCE ONE Stop: 12/23/18 10:01 Methimazole (Tapazole) 20 mg PO Q8H [facility] Last Admin: 12/22/18 05:37 Dose: 20 mg Metoprolol Tartrate (Lopressor) 25 mg PO BID [facility] Last Admin: 12/21/18 18:00 Dose: 25 mg Pantoprazole Sodium (Protonix Inj) 40 mg IVP DAILY [facility] Last Admin: 12/21/18 10:28 Dose: 40 mg Physical Exam - Constitutional Appears: Other (critically ill acutely intubated/sedated) - Eye Exam Eye Exam: absent: Scleral icterus - Neck Exam Neck exam: Positive for: Normal Inspection - Respiratory Exam Respiratory Exam: Rhonchi, NORMAL BREATHING PATTERN. absent: Wheezes - Cardiovascular Exam Cardiovascular Exam: Tachycardia, REGULAR RHYTHM, +S1, +S2 - GI/Abdominal Exam GI & Abdominal Exam: Soft. absent: Firm, Pulsatile Mass - Extremities Exam Extremities exam: Positive for: normal inspection, pedal pulses present. Negative for: pedal edema - Skin Skin Exam: Normal Color, Warm Results - Vital Signs Recent Vital Signs: Last Vital Signs Temp 98.6 F 12/22/18 08:00 Pulse 118 H 12/22/18 09:05 Resp 22 12/22/18 09:05 BP 146/84 12/22/18 09:05 Pulse Ox 99 12/22/18 09:05 - Labs Result Diagrams: 12/22/18 04:49 12/22/18 04:49 Labs: Laboratory Results - last 24 hr 12/21/18 12/21/18 12/21/18 06:42 10:04 12:25 WBC RBC Hgb Hct MCV MCH MCHC RDW Plt Count MPV Neut % (Auto) Lymph % (Auto) Emanuel % (Auto) Eos % (Auto) Baso % (Auto) Neut # (Auto) Lymph # (Auto) Emanuel # (Auto) Eos # (Auto) Baso # (Auto) PT INR APTT Puncture Site pCO2 pO2 HCO3 ABG pH ABG Total CO2 ABG O2 Saturation ABG Base Excess Howard Test ABG Potassium A-a O2 Difference Respiratory Index Glucose Lactate Vent Mode Mechanical Rate FiO2 Tidal Volume PEEP Sodium 141 145 Potassium 6.8 H* D 3.5 L Chloride 107 112 H Carbon Dioxide 23 26 Anion Gap 18 10 BUN 10 20 H Creatinine 0.8 1.1 Est GFR ( Amer) > 60 > 60 Est GFR (Non-Af Amer) > 60 53 Random Glucose 236 H D 108 H D Calcium 9.2 8.8 Phosphorus 8.2 H Magnesium 1.9 Total Bilirubin 0.3 AST 51 H ALT 14 Alkaline Phosphatase 77 Total Creatine Kinase 50 CK-MB (Mass) 2.69 Troponin I 0.4120 H* Total Protein 4.0 L Albumin 1.8 L D Globulin 2.2 Albumin/Globulin Ratio 0.8 L Thyroxine (T4) Free T3 pg/mL > 22.80 H Total T3 8.15 H TSH 3rd Generation < 0.02 L Cortisol AM Sample Arterial Blood Potassium 12/21/18 12/22/18 12/22/18 15:57 00:21 04:49 WBC RBC Hgb Hct MCV MCH MCHC RDW Plt Count MPV Neut % (Auto) Lymph % (Auto) Emanuel % (Auto) Eos % (Auto) Baso % (Auto) Neut # (Auto) Lymph # (Auto) Emanuel # (Auto) Eos # (Auto) Baso # (Auto) PT INR APTT > 400 H* D > 400 H* Puncture Site pCO2 pO2 HCO3 ABG pH ABG Total CO2 ABG O2 Saturation ABG Base Excess Howard Test ABG Potassium A-a O2 Difference Respiratory Index Glucose Lactate Vent Mode Mechanical Rate FiO2 Tidal Volume PEEP Sodium Potassium Chloride Carbon Dioxide Anion Gap BUN Creatinine Est GFR ( Amer) Est GFR (Non-Af Amer) Random Glucose Calcium Phosphorus Magnesium Total Bilirubin AST ALT Alkaline Phosphatase Total Creatine Kinase CK-MB (Mass) Troponin I Total Protein Albumin Globulin Albumin/Globulin Ratio Thyroxine (T4) Free T3 pg/mL Total T3 TSH 3rd Generation Cortisol AM Sample 17.8 Arterial Blood Potassium 0312/22/18 12/22/18 04:49 04:49 05:19 WBC 13.9 H D RBC 3.95 Hgb 11.0 Hct 33.8 L MCV 85.6 D MCH 27.9 MCHC 32.6 L RDW 14.9 H Plt Count 136 MPV 8.6 Neut % (Auto) 79.5 H Lymph % (Auto) 12.8 L Emanuel % (Auto) 7.7 Eos % (Auto) 0.0 Baso % (Auto) 0.0 Neut # (Auto) 11.0 H Lymph # (Auto) 1.8 Emanuel # (Auto) 1.1 H Eos # (Auto) 0.0 Baso # (Auto) 0.0 PT INR APTT Puncture Site Rr pCO2 34 L pO2 298 H HCO3 25.1 ABG pH 7.45 ABG Total CO2 24.6 ABG O2 Saturation 100.2 H ABG Base Excess 0.1 Howard Test Pos ABG Potassium 3.6 A-a O2 Difference 87.0 Respiratory Index 0.3 Glucose 131 H Lactate 1.3 Vent Mode Prvc Mechanical Rate 22 FiO2 60.0 Tidal Volume 400 PEEP 5 Sodium 144 145.0 Potassium 3.7 Chloride 112 H 116.0 H Carbon Dioxide 25 Anion Gap 11 BUN 32 H Creatinine 1.8 H Est GFR ( Amer) 36 Est GFR (Non-Af Amer) 30 Random Glucose 140 H D Calcium 7.2 L Phosphorus 5.0 H Magnesium 1.6 Total Bilirubin 0.6 AST 881 H D ALT 543 H D Alkaline Phosphatase 77 Total Creatine Kinase CK-MB (Mass) Troponin I Total Protein 5.3 L Albumin 2.4 L D Globulin 2.9 Albumin/Globulin Ratio 0.8 L Thyroxine (T4) 22.3 H Free T3 pg/mL Total T3 TSH 3rd Generation < 0.02 L Cortisol AM Sample Arterial Blood Potassium 3.6 12/22/18 12/22/18 08:00 08:55 WBC RBC Hgb Hct MCV MCH MCHC RDW Plt Count MPV Neut % (Auto) Lymph % (Auto) Emanuel % (Auto) Eos % (Auto) Baso % (Auto) Neut # (Auto) Lymph # (Auto) Emanuel # (Auto) Eos # (Auto) Baso # (Auto) PT 19.6 H INR 1.8 APTT > 400 H* > 400 H* Puncture Site pCO2 pO2 HCO3 ABG pH ABG Total CO2 ABG O2 Saturation ABG Base Excess Howard Test ABG Potassium A-a O2 Difference Respiratory Index Glucose Lactate Vent Mode Mechanical Rate FiO2 Tidal Volume PEEP Sodium Potassium Chloride Carbon Dioxide Anion Gap BUN Creatinine Est GFR ( Amer) Est GFR (Non-Af Amer) Random Glucose Calcium Phosphorus Magnesium Total Bilirubin AST ALT Alkaline Phosphatase Total Creatine Kinase CK-MB (Mass) Troponin I Total Protein Albumin Globulin Albumin/Globulin Ratio Thyroxine (T4) Free T3 pg/mL Total T3 TSH 3rd Generation Cortisol AM Sample Arterial Blood Potassium - EKG Data EKG Interpreted by: Myself - Imaging and Cardiology Chest x-ray Status: Image reviewed by me Assessment & Plan - Assessment and Plan (Free Text) Assessment: Non compliant 48 y/o Thyroid storm Severe metabolic acidosis TANVI probably ATN Shock liver Hyperkalemia: resolved Acute respiratory failure due to above: s/p intubation Likely metabolic/hypoxemic cardiac arrest manifested as profound bradycardia: requiring CPR to gain ROSC ECHO: directly viewed by me: mod-severe LV dysfunction global hypokinesia LVH RVE and moderate RV dysfunction Mild-mod inc in PASP dilated IVC and reduced compliance c/w inc JVP Mod TR, Mild MR, trace AI Grade 1 diastolic dysfunction CXR: images viewed by me: congestion, infiltrate and small effusion Right PLAN: Ventilatory support Correction of metabolic abnormalities suggest labetalol GTT start low dose as tolerated: monitor for bright: should tolerate now that acidosis and hyperkalemia is improved cont heparin GTT: LE duplex neg for DVT....suggest pursue V/Q scan to confirm or exclude PE as cause Moderate LV dysfunction and minimal trop likely due to underlying acidosis and toxic/metabolic cause and demand ischemia: supportive care: consider ASA 81
--- NOTE | 2018-12-22 11:27 | CT ---
Date of service: 12/22/2018 PROCEDURE: CT Chest with contrast (Pulmonary Angiogram) HISTORY: Rule out PE COMPARISON: Comparison made with chest radiograph dated 12/21/2018 TECHNIQUE: Axial computed tomography images were obtained of the chest in the pulmonary arterial phase of enhancement. Coronal and sagittal reformatted images were created and reviewed. Intravenous contrast dose: 100 cc Visipaque 320 contrast material. Radiation dose: Total exam DLP = 572.52 mGy-cm. This CT exam was performed using one or more of the following dose reduction techniques: Automated exposure control, adjustment of the mA and/or kV according to patient size, and/or use of iterative reconstruction technique. FINDINGS: Limited exam due to suboptimal opacification of the pulmonary arteries as well as streak and beam hardening artifact arising from the upper extremities which have not been moved from the field of view In situ ETT, tip of which lies approximately 3 cm above michael. NGT is present, the tip of which is located within the stomach. PULMONARY ARTERIES: The visualized pulmonary trunk, right and left main, lobar, segmental and proximal subsegmental branches of the pulmonary arteries are well opacified with no definitive filling defects seen to suggest central pulmonary embolus. Pulmonary trunk measures approximately 3.57 cm. AORTA: No acute findings. No thoracic aortic aneurysm. There is mild aneurysmal dilatation of the ascending thoracic aorta which measures approximately 4.2 cm. Descending thoracic aorta measures approximately 2.16 cm. No aortic atherosclerotic calcification or mural plaque present. LUNGS: Mild bibasilar atelectasis.. They minor ground-glass opacity seen in the left upper lobe bordering the fissure PLEURAL SPACES: Small bilateral effusions are present right slightly larger than left. HEART: Heart appears mildly enlarged. No significant pericardial effusion.. No significant pericardial effusion. LYMPH NODES: No significant mediastinal or hilar adenopathy. There is enlarged heterogeneous thyroid gland.. BONES, CHEST WALL: Minimal degenerative spondylosis of the thoracic spine. There are no acute compression fractures no retropulsed fragments. OTHER FINDINGS: Unremarkable. IMPRESSION: Limited exam due to suboptimal opacification of the pulmonary arteries as well as streak and beam hardening artifact arising from the upper extremities which have not been moved from the field of view. No definitive acute central pulmonary embolus however note that the distal branches are poorly delineated due to aforementioned limitations. Mild aneurysmal dilatation of the ascending thoracic aorta. Cardiomegaly. Small bilateral effusions and atelectasis right greater than left. Mild hazy ground-glass opacity in the left upper lobe. Enlarged thyroid gland. In situ ETT and NGT as detailed above.
[2018-12-22] MEDS: Lactated Ringer's 1,000 ML IV SCH (14:19)
--- NOTE | 2018-12-22 15:28 | CARD ---
APPROVED REPORT Date of service: 12/21/2018 EKG Measurement Heart [id number] <Conclusion> Sinus tachycardia Otherwise normal ECG
--- NOTE | 2018-12-22 15:30 | CARD ---
APPROVED REPORT Date of service: 12/21/2018 EKG Measurement Heart [id number] <Conclusion> Sinus tachycardia Nonspecific ST T abnormality Abnormal ECG
--- NOTE | 2018-12-22 17:44 | PN ---
DATE: 12/22/2018 ENDO FOLLOW-UP NOTE. LOCATION: In room 18 ICU. SUBJECTIVE: This is a 48-year-old female with known history of Graves' disease and hyperthyroidism, presenting here with hyperadrenergic manifestations, dizziness, and lightheadedness and developed sudden bradycardia and supervening cardiorespiratory arrest and is currently intubated and sedated at this time and is being followed closely for metabolic management. She also had concomitant severe upper abdominal pain with nausea and intractable vomiting episodes as noted. She apparently developed marked bradycardia and hypotension following the administration of beta-blockade medications in the emergency room as noted. She has a strong history of poor adherence and compliance to her thyroid medications as given on the outpatient. Moreover, the echocardiogram showed severe hypokinesis of the right ventricle and the possibility of pulmonary embolism has been brought in to the forefront in terms of diagnostic possibilities. She has ongoing heparin infusion as given. LABORATORY DATA: Her repeat chemistries showed a BUN of 32, sodium 144, potassium 3.7, chloride 112, CO2 of 25, glucose 140, and creatinine 1.8. Her liver transaminases are more elevated at this time with an AST of 881 and ALT of 543. The thyroxine or T4 level is 22.3 with a TSH of less than 0.02 and a free T3 greater than 22.80 and a free T4 of 5.67. ASSESSMENT: This is a 48-year-old female with overt thyrotoxicosis, presenting here with marked hyperthyroidism noted both historically, clinically, and biochemically with underlying Graves' disease and poor adherence to her medical therapy on the outpatient as recommended. She also developed sudden cardiopulmonary arrest following the initiation of beta-adrenergic blockade medications in the emergency room as noted and remains endotracheally intubated and sedated at this time. PLAN OF MANAGEMENT: We will titrate her Tapazole to 20 mg every 6 hours which is really already supramaximal in terms of pharmacologic dosing at this time. We will continue the hydrocortisone given as 50 mg IV every 8 hours and would actually doubt the presence of hypoadrenalism for this is given to help inhibit the conversion of T4 to T3, which is the more potent hormone and hopefully even affect the overall metabolic response to the hyperthyroid condition. We will obtain serial chemistries and supplement accordingly as needed. We will follow and advice accordingly. The elevated liver transaminases are most likely related to the shock liver and right-sided heart failure as noted and accepted. Linda Weaver MD
[2018-12-22] MEDS: Dexmedetomidine Hydrochloride 200 MCG in Sodium Chloride 0.9% 48 ML IV PRN (17:46)
[2018-12-22 19:00] LABS: THYROGLOBULIN 492.3 ng/mL (2.8-40.9)
--- NOTE | 2018-12-22 20:07 | CP.PCM.PN ---
Subjective - Date & Time of Evaluation Date of Evaluation: 12/22/18 Time of Evaluation: 11:30 - Subjective Subjective: Patient was examined today at bedside patient denies nausea, vomiting, fever, diarrhea, dizziness, shortness of breath Objective - Vital Signs/Intake and Output Vital Signs (last 24 hours): Temp Pulse Resp BP Pulse Ox 100.9 F H 116 H 22 139/73 99 12/22/18 17:31 12/22/18 19:20 12/22/18 19:20 12/22/18 19:20 12/22/18 19:20 Intake and Output: 12/22/18 12/23/18 18:59 06:59 Intake Total 1196.6 10.7 Output Total 820 60 Balance 376.6 -49.3 - Medications Medications: Current Medications Acetaminophen (Tylenol 650mg/20.3ml Solution Ud) 650 mg GT Q6 PRN PRN Reason: Temperature Last Admin: 12/22/18 16:31 Dose: 650 mg Enoxaparin Sodium (Lovenox) 30 mg SC DAILY [place] Hydrocortisone Sodium Succinate (Solu-Cortef) 50 mg IV Q8H [place] Last Admin: 12/22/18 16:31 Dose: 50 mg Midazolam HCl 100 mg/ Dextrose 100 mls @ 1.42 mls/hr IV .Q24H [place]; Protocol Last Titration: 12/22/18 08:13 Dose: 0 mg/kg/hr, 0 mls/hr Piperacillin Sod/Tazobactam Sod (Zosyn 3.375 Gm Iv Premix) 3.375 gm in 50 mls @ 100 mls/hr IVPB Q6H [place]; Protocol Last Admin: 12/22/18 18:02 Dose: 100 mls/hr Vancomycin HCl 1,000 mg/ (Sodium Chloride) 250 mls @ 166.6 mls/hr IVPB Q12H [place]; Protocol Last Admin: 12/22/18 18:37 Dose: 166.6 mls/hr Propofol (Diprivan) 1,000 mg in 100 mls @ 2.123 mls/hr IV .Q24H PRN; Protocol PRN Reason: TITRATE PER MD ORDER Last Titration: 12/22/18 19:03 Dose: 5 mcg/kg/min, 2.123 mls/hr Lactated Ringer's (Lactated Ringer's) 1,000 mls @ 60 mls/hr IV .[id number] [facility] Last Admin: 12/22/18 14:19 Dose: 60 mls/hr Dexmedetomidine HCl 200 mcg/ (Sodium Chloride) 50 mls @ 3.52 mls/hr IV TITR PRN; Protocol PRN Reason: Agitation Last Admin: 12/22/18 17:46 Dose: 0.2 mcg/kg/hr, 3.52 mls/hr Influenza Virus Vaccine (Flucelvax Quad [id number] Syr) 60 mcg IM .ONCE ONE Stop: 12/23/18 10:01 Labetalol HCl (Trandate) 100 mg PO BID [facility] Last Admin: 12/22/18 18:49 Dose: 100 mg Methimazole (Tapazole) 20 mg PO Q6H [facility] Last Admin: 12/22/18 16:30 Dose: 20 mg Pantoprazole Sodium (Protonix Inj) 40 mg IVP DAILY [facility] Last Admin: 12/22/18 11:13 Dose: 40 mg - Labs Labs: 12/22/18 04:49 12/22/18 04:49 PT 19.6 SECONDS (9.7-12.2) H 12/22/18 08:55 INR 1.8 12/22/18 08:55 APTT > 400 SECONDS (21-34) H* 12/22/18 08:55 - Constitutional Appears: Well - Head Exam Head Exam: ATRAUMATIC, NORMAL INSPECTION, NORMOCEPHALIC - Eye Exam Eye Exam: EOMI, Normal appearance, PERRL Pupil Exam: NORMAL ACCOMODATION, PERRL - ENT Exam ENT Exam: Mucous Membranes Moist, Normal Exam - Neck Exam Neck Exam: Full ROM, Normal Inspection. absent: Lymphadenopathy - Respiratory Exam Respiratory Exam: Decreased Breath Sounds - Cardiovascular Exam Cardiovascular Exam: REGULAR RHYTHM, +S1, +S2 - GI/Abdominal Exam GI & Abdominal Exam: Soft, Diminished Bowel Sounds - Rectal Exam Rectal Exam: Deferred
[2018-12-23] MEDS: Piperacill/Tazo 3.375gm in Dex 3.375 GM/50 ML BAG IVPB SCH ×2 (00:11→05:50)
[2018-12-23] MEDS: Dexmedetomidine Hydrochloride 200 MCG in Sodium Chloride 0.9% 48 ML IV PRN ×3 (00:12→15:43)
[2018-12-23] MEDS: Midazolam 50 mg/10 ml 100 MG in Dextrose 5% In Water 80 ML IV SCH (03:52)
[2018-12-23 05:32] LABS: ABG ALLEN TEST POS; ARTERIAL BLOOD GAS HCO3 25.4 mmol/L (21-28); ARTERIAL BLOOD GAS O2 SAT 99.9 % (95-98); ARTERIAL BLOOD GAS PCO2 37 mm/Hg (35-45); ARTERIAL BLOOD GAS PH 7.43 (7.35-7.45); ARTERIAL BLOOD GAS PO2 216 mm/Hg (80-100); ARTERIAL BLOOD GAS TCO2 25.7 mmol/L (22-28)
[2018-12-23 06:36] LABS: HEMOGLOBIN 10.4 g/dL (11.0-16.0); MEAN CELL VOLUME 85.8 fL (81.0-99.0); MEAN CORPUSCULAR HGB CONC 32.6 g/dL (33.0-37.0); MEAN PLATELET VOLUME 9.1 fL (7.2-11.7); MONO # 0.8 K/uL (0.0-0.8); NEUT # 7.5 K/uL (1.8-7.0); RBC 3.71 Mil/uL (3.80-5.20); RED CELL DISTRIBUTION WIDTH 14.9 % (11.5-14.5); WHITE BLOOD COUNT 9.3 K/uL (4.8-10.8)
[2018-12-23] MEDS: Lactated Ringer's 1,000 ML IV SCH (06:39)
[2018-12-23 06:46] LABS: ALB/GLOB RATIO 0.8 (1.0-2.1); ALBUMIN 2.4 g/dL (3.5-5.0)
--- NOTE | 2018-12-23 08:44 | CP.PCM.PN ---
Subjective - Date & Time of Evaluation Date of Evaluation: 12/23/18 Time of Evaluation: 07:30 - Subjective Subjective: Pgy3 IM Resident Endocrinology Progress note for Dr. Weaver Patient seen and examined at bedside. Remains intubated and sedated on vent. Spiked temp the day prior. No acute events overnight. ROS unobtainable secondary to clinical condition. Objective - Vital Signs/Intake and Output Vital Signs (last 24 hours): Temp Pulse Resp BP Pulse Ox 98.3 F 112 H 22 176/101 H 100 12/23/18 08:00 12/23/18 08:00 12/23/18 08:00 12/23/18 08:00 12/23/18 08:00 Intake and Output: 12/23/18 12/23/18 06:59 18:59 Intake Total 1276.3 257.0 Output Total 920 151 Balance 356.3 106.0 - Medications Medications: Current Medications Acetaminophen (Tylenol 650mg/20.3ml Solution Ud) 650 mg GT Q6 PRN PRN Reason: Temperature Last Admin: 12/22/18 23:02 Dose: 650 mg Enoxaparin Sodium (Lovenox) 30 mg SC DAILY [place] Hydrocortisone Sodium Succinate (Solu-Cortef) 50 mg IV Q8H [place] Last Admin: 12/23/18 06:16 Dose: 50 mg Midazolam HCl 100 mg/ Dextrose 100 mls @ 1.42 mls/hr IV .Q24H [place]; Protocol Last Admin: 12/23/18 03:52 Dose: Not Given Vancomycin HCl 1,000 mg/ (Sodium Chloride) 250 mls @ 166.6 mls/hr IVPB Q12H [place]; Protocol Last Admin: 12/23/18 05:48 Dose: 166.6 mls/hr Propofol (Diprivan) 1,000 mg in 100 mls @ 2.123 mls/hr IV .Q24H [facility]N; Protocol PRN Reason: TITRATE PER MD ORDER Last Titration: 12/23/18 06:00 Dose: 0 mcg/kg/min, 0 mls/hr Lactated Ringer's (Lactated Ringer's) 1,000 mls @ 60 mls/hr IV .[id number] [place] Last Admin: 12/23/18 06:39 Dose: Not Given Dexmedetomidine HCl 200 mcg/ (Sodium Chloride) 50 mls @ 3.52 mls/hr IV TITR PRN; Protocol PRN Reason: Agitation Last Admin: 12/23/18 00:12 Dose: 0.2 mcg/kg/hr, 3.52 mls/hr Potassium Chloride (Potassium Chloride 20 Meq/100 Ml) 20 meq in 100 mls @ 50 mls/hr IVPB Q2H [place] Stop: 12/23/18 15:44 Last Admin: 12/23/18 08:09 Dose: 50 mls/hr Piperacillin Sod/Tazobactam Sod (Zosyn 2.25 Gm Iv Premix) 2.25 gm in 50 mls @ 100 mls/hr IVPB Q6H [facility] Influenza Virus Vaccine (Flucelvax Quad [id number] Syr) 60 mcg IM .ONCE ONE Stop: 12/23/18 10:01 Labetalol HCl (Trandate) 100 mg PO BID [facility] Last Admin: 12/22/18 18:49 Dose: 100 mg Methimazole (Tapazole) 20 mg PO Q6H [facility] Last Admin: 12/23/18 03:51 Dose: 20 mg Pantoprazole Sodium (Protonix Inj) 40 mg IVP DAILY [facility] Last Admin: 12/22/18 11:13 Dose: 40 mg - Labs Labs: 12/23/18 06:25 12/23/18 06:20 PT 19.6 SECONDS (9.7-12.2) H 12/22/18 08:55 INR 1.8 12/22/18 08:55 APTT 32 SECONDS (21-34) D 12/23/18 06:25 - Additional Findings Additional findings: - Constitutional Appears: Other (ams) - Head Exam Head Exam: ATRAUMATIC, NORMAL INSPECTION, NORMOCEPHALIC - Eye Exam Eye Exam: Normal appearance. absent: Conjunctival injection, Scleral icterus - ENT Exam Additional comments: ET tube in place - Respiratory Exam Respiratory Exam: Wheezing. absent: Accessory Muscle Use, Rales, Rhonchi Additional comments: intubated on vent - Cardiovascular Exam Cardiovascular Exam: Tachycardia, +S1, +S2 - GI/Abdominal Exam GI & Abdominal Exam: Normal Bowel Sounds, Soft. absent: Firm - Rectal Exam Rectal Exam: Deferred - Extremities Exam Extremities exam: Positive for: normal inspection, pedal pulses present. Negative for: pedal edema - Neurological Exam Neurological exam: Altered - Skin Skin Exam: Dry, Intact, Warm Assessment and Plan - Assessment and Plan (Free Text) Assessment: 48yo female PMHx HTN, Hyperthyroidism, TIA, anxiety, asthma and Grave's dx presented to the ER overnight with complaints of severe abdominal pain, nausea, and vomiting. Patient had cardiac arrest x 3 and ROSC was achieved. Admitted to MICU for further management. Endocrinology consulted for possible thyroid storm. Plan: Overnight events, imaging, and blood work noted. TSH < 0.02, free T4 5.67, and total T4 22.3. Serum cortisol wnl. Will continue solucortef 50q8 to inhibit conversion from T3 to T4 and will increase Tapazole to 20q6. Tapazole more potent and longer acting than PTU which is short acting. Will repeat total T4 and cortisol in the AM and adjust medications accordingly. Elevated LFTs likely 2/2 to hyperthyroidism vs shock liver 2/2 cardiac arrest- trending down. Will continue to monitor blood work. Cardio reccs appreciated. Echo reviewed. Blood cultures prelim negative x 2. Continue to correct electrolyte abnl. Continue management as per primary and MICU team. Discussed with Dr. Owen Crowell PGY3
[2018-12-23] MEDS: Enoxaparin 30 mg Syringe SC SCH (09:18)
--- NOTE | 2018-12-23 09:36 | RAD ---
Date of service: 12/23/2018 HISTORY: vented COMPARISON: 12/22/2018 FINDINGS: Endotracheal tube terminates 3.8 cm proximal to the michael. The nasogastric tube is coiled in the stomach. LUNGS: There is redemonstration of moderate pulmonary venous congestion. PLEURA: Suspect small effusions. No pneumothorax CARDIOVASCULAR: Persistent severe cardiomegaly and prominent central vasculature. No aortic atherosclerotic calcifications present. OSSEOUS STRUCTURES: Within normal limits for the patient's age. VISUALIZED UPPER ABDOMEN: Normal. OTHER FINDINGS: None. IMPRESSION: Little interval change in presumable mild congestive heart failure.
[2018-12-23] MEDS ORDERED: Influenza Vaccine 60 mcg/0.5 mL SYR (4YR UP) IM ONE (10:00)
--- NOTE | 2018-12-23 10:29 | CP.PCM.PN ---
Subjective - Date & Time of Evaluation Date of Evaluation: 12/23/18 Time of Evaluation: 10:26 - Subjective Subjective: sPONTANEOUS ARROUSAL AND MOVEMENTS STILL INTUBATED FIO2 50% SBP 150's HR 115 sinus tach Objective - Vital Signs/Intake and Output Vital Signs (last 24 hours): Temp Pulse Resp BP Pulse Ox 98.3 F 113 H 23 156/87 H 100 12/23/18 08:00 12/23/18 10:00 12/23/18 10:00 12/23/18 09:51 12/23/18 10:00 Intake and Output: 12/23/18 12/23/18 06:59 18:59 Intake Total 1276.3 445.7 Output Total 920 211 Balance 356.3 234.7 - Medications Medications: Current Medications Acetaminophen (Tylenol 650mg/20.3ml Solution Ud) 650 mg GT Q6 PRN PRN Reason: Temperature Last Admin: 12/22/18 23:02 Dose: 650 mg Albumin Human (Albumin Human 5% (12.5 Gm/250 Ml)) 12.5 gm IV ONCE ONE Stop: 12/23/18 10:31 Enoxaparin Sodium (Lovenox) 30 mg SC DAILY [place] Last Admin: 12/23/18 09:18 Dose: 30 mg Furosemide (Lasix) 20 mg IVP ONCE ONE Stop: 12/23/18 10:31 Hydrocortisone Sodium Succinate (Solu-Cortef) 50 mg IV Q8H [place] Last Admin: 12/23/18 06:16 Dose: 50 mg Midazolam HCl 100 mg/ Dextrose 100 mls @ 1.42 mls/hr IV .Q24H [place]; Protocol Last Admin: 12/23/18 03:52 Dose: Not Given Vancomycin HCl 1,000 mg/ (Sodium Chloride) 250 mls @ 166.6 mls/hr IVPB Q12H [place]; Protocol Last Admin: 12/23/18 05:48 Dose: 166.6 mls/hr Propofol (Diprivan) 1,000 mg in 100 mls @ 2.123 mls/hr IV .Q24H PRN; Protocol PRN Reason: TITRATE PER MD ORDER Last Titration: 12/23/18 06:00 Dose: 0 mcg/kg/min, 0 mls/hr Dexmedetomidine HCl 200 mcg/ (Sodium Chloride) 50 mls @ 3.52 mls/hr IV TITR PRN; Protocol PRN Reason: Agitation Last Titration: 12/23/18 09:50 Dose: 0.2 mcg/kg/hr, 3.52 mls/hr Potassium Chloride (Potassium Chloride 20 Meq/100 Ml) 20 meq in 100 mls @ 50 mls/hr IVPB Q2H [place] Stop: 12/23/18 15:44 Last Admin: 12/23/18 10:06 Dose: 50 mls/hr Piperacillin Sod/Tazobactam Sod (Zosyn 2.25 Gm Iv Premix) 2.25 gm in 50 mls @ 100 mls/hr IVPB Q6H [place] Labetalol HCl (Trandate) 100 mg PO BID [facility] Last Admin: 12/23/18 09:21 Dose: 100 mg Methimazole (Tapazole) 20 mg PO Q6H [facility] Last Admin: 12/23/18 09:35 Dose: 20 mg Pantoprazole Sodium (Protonix Inj) 40 mg IVP DAILY [facility] Last Admin: 12/23/18 09:18 Dose: 40 mg - Labs Labs: 12/23/18 06:25 12/23/18 06:20 PT 19.6 SECONDS (9.7-12.2) H 12/22/18 08:55 INR 1.8 12/22/18 08:55 APTT 32 SECONDS (21-34) D 12/23/18 06:25 - Constitutional Appears: Chronically Ill - Head Exam Head Exam: ATRAUMATIC, NORMAL INSPECTION, NORMOCEPHALIC - Eye Exam Eye Exam: absent: Scleral icterus - Neck Exam Neck Exam: Normal Inspection - Respiratory Exam Respiratory Exam: Rhonchi - Cardiovascular Exam Cardiovascular Exam: Tachycardia, REGULAR RHYTHM, +S1, +S2 - GI/Abdominal Exam GI & Abdominal Exam: Soft - Extremities Exam Extremities Exam: Normal Capillary Refill, Normal Inspection. absent: Pedal Edema - Neurological Exam Neurological Exam: absent: Altered - Skin Skin Exam: Normal Color, Warm Assessment and Plan - Assessment and Plan (Free Text) Assessment: Non compliant 48 y/o Thyroid storm Severe metabolic acidosis TANVI probably ATN Shock liver Hyperkalemia: resolved Acute respiratory failure due to above: s/p intubation Likely metabolic/hypoxemic cardiac arrest manifested as profound bradycardia: requiring CPR to gain ROSC ECHO: directly viewed by me: mod-severe LV dysfunction global hypokinesia LVH RVE and moderate RV dysfunction Mild-mod inc in PASP dilated IVC and reduced compliance c/w inc JVP Mod TR, Mild MR, trace AI Grade 1 diastolic dysfunction CXR: images viewed by me: congestion, infiltrate and small effusion Right PLAN: THYROTOXICOSIS: on tapazole, steroids Ventilatory support Correction of metabolic abnormalities: hypokalemia noted with TANVI suggest increase labetalol to 200 TID titrate as tolerated: monitor for bright: should tolerate now that acidosis and hyperkalemia is improved heparin dc'd after CT chest study was not indicative of PE: LE duplex neg for DVT.... Moderate LV dysfunction and minimal trop likely due to underlying acidosis and toxic/metabolic cause and demand ischemia: supportive care: consider ASA 81
[2018-12-23] MEDS ORDERED: Albumin Human 5% (12.5 gm/250 ml) IV ONE (10:30)
[2018-12-23] MEDS ORDERED: Piperacill/Tazo 2.25gm in Dex 2.25 GM/50 ML BAG IVPB SCH (12:45)
--- NOTE | 2018-12-23 14:02 | CP.CCUPN ---
<Nehemiah Shin - Last Filed: 12/23/18 16:50> CCU Objective - Vital Signs / Intake & Output Vital Signs (Last 4 hours): Vital Signs Pulse Resp BP Pulse Ox 12/23/18 15:51 117 H 22 169/98 H 100 12/23/18 15:00 115 H 22 100 12/23/18 14:51 114 H 22 171/108 H 100 12/23/18 14:00 116 H 23 100 12/23/18 13:51 116 H 23 175/105 H 100 12/23/18 13:00 114 H 22 100 12/23/18 12:51 113 H 22 177/106 H 100 Intake and Output (Last 8hrs): Intake & Output 12/23/18 12/23/18 12/23/18 06:59 14:59 22:59 Intake Total 1008.8 1040.8 218.0 Output Total 650 636 140 Balance 358.8 404.8 78.0 Weight 156 lb Intake: IV 84 50.0 53 Intake, IV Amount 624.8 670.8 85.0 Right Medial Port Femoral 16.8 350 50 Right Proximal Port 28.0 80.8 35.0 Femoral right AC 100 right hand 480 240 0 Tube Feeding 300 320 80 Output: Urine 650 636 140 Urethral (Perez) 650 636 140 - Medications Active Medications: Active Medications Generic Name Dose Route Start Last Admin Trade Name Freq PRN Reason Stop Dose Admin Acetaminophen 650 mg 12/21/18 15:53 12/22/18 23:02 Tylenol 650mg/20.3ml Solution Ud GT 650 mg Q6 PRN Administration Temperature Enoxaparin Sodium 30 mg 12/23/18 10:00 12/23/18 09:18 Lovenox SC 30 mg DAILY [place] Administration Hydrocortisone Sodium Succinate 50 mg 12/21/18 15:00 12/23/18 14:22 Solu-Cortef IV 50 mg Q8H [place] Administration Midazolam HCl 100 mg/ Dextrose 100 mls @ 1.42 mls/hr 12/21/18 04:30 12/23/18 03:52 IV Not Given .Q24H [place] Protocol 0.02 MG/KG/HR Vancomycin HCl 1,000 mg/ 250 mls @ 166.6 mls/hr 12/21/18 06:45 12/23/18 05:48 Sodium Chloride IVPB 166.6 mls/hr Q12H [place] Administration Protocol Propofol 1,000 mg in 100 mls @ 2.123 mls/hr 12/21/18 07:42 12/23/18 06:00 Diprivan IV 0 mcg/kg/min .Q24H PRN 0 mls/hr TITRATE PER MD ORDER Titration Protocol 5 MCG/KG/MIN Dexmedetomidine HCl 200 mcg/ 50 mls @ 3.52 mls/hr 12/22/18 17:22 12/23/18 16:37 Sodium Chloride IV 0.5 mcg/kg/hr TITR PRN 8.79 mls/hr Agitation Titration Protocol 0.2 MCG/KG/HR Piperacillin Sod/Tazobactam Sod 2.25 gm in 50 mls @ 100 mls/hr 12/23/18 12:45 12/23/18 13:48 Zosyn 2.25 Gm Iv Premix IVPB 100 mls/hr Q6H [place] Administration Labetalol HCl 200 mg 12/23/18 18:00 Trandate PO BID [place] Methimazole 20 mg 12/22/18 10:30 12/23/18 09:35 Tapazole PO 20 mg Q6H [place] Administration Pantoprazole Sodium 40 mg 12/21/18 10:15 12/23/18 09:18 Protonix Inj IVP 40 mg DAILY [place] Administration - Patient Studies Lab Studies: Microbiology Studies 12/22/18 11:57 Gram Stain - Final Trachasp Sputum Culture - Preliminary No growth. 12/22/18 11:57 Urine Culture - Final Urine,Perez No Growth (<1,000 CFU/ML) 12/21/18 08:39 Blood Culture - Preliminary Blood NO GROWTH AFTER 48 HOURS 12/21/18 08:39 Blood Culture - Preliminary Blood NO GROWTH AFTER 48 HOURS Lab Studies 12/23/18 12/23/18 12/23/18 Range/Units 06:25 06:25 06:20 WBC 9.3 (4.8-10.8) K/uL RBC 3.71 L (3.80-5.20) Mil/uL Hgb 10.4 L (11.0-16.0) g/dL Hct 31.8 L (34.0-47.0) % MCV 85.8 (81.0-99.0) fL MCH 28.0 (27.0-31.0) pg MCHC 32.6 L (33.0-37.0) g/dL RDW 14.9 H (11.5-14.5) % Plt Count 108 L D (130-400) K/uL MPV 9.1 (7.2-11.7) fL Neut % (Auto) 80.0 H (50.0-75.0) % Lymph % (Auto) 11.0 L (20.0-40.0) % [place] % (Auto) 9.0 (0.0-10.0) % Eos % (Auto) 0.0 (0.0-4.0) % Baso % (Auto) 0.0 (0.0-2.0) % Neut # (Auto) 7.5 H (1.8-7.0) K/uL Lymph # (Auto) 1.0 (1.0-4.3) K/uL [place] # (Auto) 0.8 (0.0-0.8) K/uL Eos # (Auto) 0.0 (0.0-0.7) K/uL Baso # (Auto) 0.0 (0.0-0.2) K/uL APTT 32 D (21-34) SECONDS Puncture Site pCO2 (35-45) mm/Hg pO2 (80-100) mm/Hg HCO3 (21-28) mmol/L ABG pH (7.35-7.45) ABG Total CO2 (22-28) mmol/L ABG O2 Saturation (95-98) % ABG Base Excess (-2.0-3.0) mmol/L Howard Test ABG Potassium (3.6-5.2) mmol/L A-a O2 Difference mm/Hg Respiratory Index Sodium 146 (132-148) mmol/l Chloride 113 H (98-107) mmol/L Glucose (65-105) mg/dl Lactate (0.7-2.1) mmol/L Vent Mode Mechanical Rate FiO2 % Tidal Volume PEEP Potassium 2.9 L (3.6-5.2) mmol/L Carbon Dioxide 25 (22-30) mmol/L Anion Gap 10 (10-20) BUN 37 H (7-17) mg/dL Creatinine 2.1 H (0.7-1.2) mg/dL Est GFR ( Amer) 30 Est GFR (Non-Af Amer) 25 Random Glucose 273 H D (65-105) mg/dL Calcium 7.0 L (8.6-10.4) mg/dl Phosphorus 4.4 (2.5-4.5) mg/dL Magnesium 1.8 (1.6-2.3) mg/dL Total Bilirubin 0.6 (0.2-1.3) mg/dL AST 462 H D (14-36) U/L ALT 475 H (9-52) U/L Alkaline Phosphatase 71 (38-126) U/L Total Protein 5.3 L (6.3-8.3) g/dL Albumin 2.4 L (3.5-5.0) g/dL Globulin 2.9 (2.2-3.9) gm/dL Albumin/Globulin Ratio 0.8 L (1.0-2.1) Thyroglobulin, Quant (2.8-40.9) ng/mL Arterial Blood Potassium (3.6-5.2) mmol/L Thyroperoxidase Ab (<9) IU/mL Thyroglobulin Antibody (< OR = 1) IU/mL 12/23/18 12/21/18 12/21/18 Range/Units 05:25 07:15 07:15 WBC (4.8-10.8) K/uL RBC (3.80-5.20) Mil/uL Hgb (11.0-16.0) g/dL Hct (34.0-47.0) % MCV (81.0-99.0) fL MCH (27.0-31.0) pg MCHC (33.0-37.0) g/dL RDW (11.5-14.5) % Plt Count (130-400) K/uL MPV (7.2-11.7) fL Neut % (Auto) (50.0-75.0) % Lymph % (Auto) (20.0-40.0) % [place] % (Auto) (0.0-10.0) % Eos % (Auto) (0.0-4.0) % Baso % (Auto) (0.0-2.0) % Neut # (Auto) (1.8-7.0) K/uL Lymph # (Auto) (1.0-4.3) K/uL [place] # (Auto) (0.0-0.8) K/uL Eos # (Auto) (0.0-0.7) K/uL Baso # (Auto) (0.0-0.2) K/uL APTT (21-34) SECONDS Puncture Site Rr pCO2 37 (35-45) mm/Hg pO2 216 H (80-100) mm/Hg HCO3 25.4 (21-28) mmol/L ABG pH 7.43 (7.35-7.45) ABG Total CO2 25.7 (22-28) mmol/L ABG O2 Saturation 99.9 H (95-98) % ABG Base Excess 0.5 (-2.0-3.0) mmol/L Howard Test Pos ABG Potassium 2.8 L (3.6-5.2) mmol/L A-a O2 Difference 166.0 mm/Hg Respiratory Index 0.8 Sodium 147.0 (132-148) mmol/l Chloride 117.0 H (98-107) mmol/L Glucose 259 H (65-105) mg/dl Lactate 1.3 (0.7-2.1) mmol/L Vent Mode Prvc Mechanical Rate 22 FiO2 60.0 % Tidal Volume 400 PEEP 5 Potassium (3.6-5.2) mmol/L Carbon Dioxide (22-30) mmol/L Anion Gap (10-20) BUN (7-17) mg/dL Creatinine (0.7-1.2) mg/dL Est GFR ( Amer) Est GFR (Non-Af Amer) Random Glucose (65-105) mg/dL Calcium (8.6-10.4) mg/dl Phosphorus (2.5-4.5) mg/dL Magnesium (1.6-2.3) mg/dL Total Bilirubin (0.2-1.3) mg/dL AST (14-36) U/L ALT (9-52) U/L Alkaline Phosphatase (38-126) U/L Total Protein (6.3-8.3) g/dL Albumin (3.5-5.0) g/dL Globulin (2.2-3.9) gm/dL Albumin/Globulin Ratio (1.0-2.1) Thyroglobulin, Quant 492.3 H (2.8-40.9) ng/mL Arterial Blood Potassium 2.8 L (3.6-5.2) mmol/L Thyroperoxidase Ab >900 H (<9) IU/mL Thyroglobulin Antibody <1 (< OR = 1) IU/mL Laboratory Results - last 24 hr 12/21/18 12/21/18 12/23/18 07:15 07:15 05:25 WBC RBC Hgb Hct MCV MCH MCHC RDW Plt Count MPV Neut % (Auto) Lymph % (Auto) [place] % (Auto) Eos % (Auto) Baso % (Auto) Neut # (Auto) Lymph # (Auto) [place] # (Auto) Eos # (Auto) Baso # (Auto) APTT Puncture Site Rr pCO2 37 pO2 216 H HCO3 25.4 ABG pH 7.43 ABG Total CO2 25.7 ABG O2 Saturation 99.9 H ABG Base Excess 0.5 Howard Test Pos ABG Potassium 2.8 L A-a O2 Difference 166.0 Respiratory Index 0.8 Sodium 147.0 Chloride 117.0 H Glucose 259 H Lactate 1.3 Vent Mode Prvc Mechanical Rate 22 FiO2 60.0 Tidal Volume 400 PEEP 5 Potassium Carbon Dioxide Anion Gap BUN Creatinine Est GFR ( Amer) Est GFR (Non-Af Amer) Random Glucose Calcium Phosphorus Magnesium Total Bilirubin AST ALT Alkaline Phosphatase Total Protein Albumin Globulin Albumin/Globulin Ratio Thyroglobulin, Quant 492.3 H Arterial Blood Potassium 2.8 L Thyroperoxidase Ab >900 H Thyroglobulin Antibody <1 12/23/18 12/23/18 12/23/18 06:20 06:25 06:25 WBC 9.3 RBC 3.71 L Hgb 10.4 L Hct 31.8 L MCV 85.8 MCH 28.0 MCHC 32.6 L RDW 14.9 H Plt Count 108 L D MPV 9.1 Neut % (Auto) 80.0 H Lymph % (Auto) 11.0 L [place] % (Auto) 9.0 Eos % (Auto) 0.0 Baso % (Auto) 0.0 Neut # (Auto) 7.5 H Lymph # (Auto) 1.0 [place] # (Auto) 0.8 Eos # (Auto) 0.0 Baso # (Auto) 0.0 APTT 32 D Puncture Site pCO2 pO2 HCO3 ABG pH ABG Total CO2 ABG O2 Saturation ABG Base Excess Howard Test ABG Potassium A-a O2 Difference Respiratory Index Sodium 146 Chloride 113 H Glucose Lactate Vent Mode Mechanical Rate FiO2 Tidal Volume PEEP Potassium 2.9 L Carbon Dioxide 25 Anion Gap 10 BUN 37 H Creatinine 2.1 H Est GFR ( Amer) 30 Est GFR (Non-Af Amer) 25 Random Glucose 273 H D Calcium 7.0 L Phosphorus 4.4 Magnesium 1.8 Total Bilirubin 0.6 AST 462 H D ALT 475 H Alkaline Phosphatase 71 Total Protein 5.3 L Albumin 2.4 L Globulin 2.9 Albumin/Globulin Ratio 0.8 L Thyroglobulin, Quant Arterial Blood Potassium Thyroperoxidase Ab Thyroglobulin Antibody Radiology Impressions: Radiology Impressions Chest X-Ray 12/23/18 06:00 IMPRESSION: Little interval change in presumable mild congestive heart failure. Attending/Attestation - Attestation I have personally seen and examined this patient.: Yes I have fully participated in the care of the patient.: Yes I have reviewed all pertinent clinical information: Yes Notes (Text): 12/23/18 16:50 I have seen and examined the patient. Medical records, lab studies, and imaging were reviewed by me and a management plan was formulated on multidisciplinary rounds with resident Dr. Karimi. I agree with their documented assessment and plan. Stopping sedation to start PS trials. Stopping fluids and starting diuresis, for pulmonary edema secondary to decompensated systolic CHF s/p cardiac arrest. Continue methimazole and steroids for thyrotoxicosis. TANVI from ATN, consequent ly from cardiac arrest, also ANUPAM from recent CT angio, will monitor for improvement. Critical Care Time 35 minutes. Multi-disciplinary rounds were performed with house staff, nursing, speech therapy, respiratory therapy, pharmacy and nutrition with integrated input from the primary team/attending and other consulting services. The documented time is cumulative and includes review of patient data/exams/labs/chart review and examination of the patient on rounds and throughout the day; time is exclusive of any procedures or teaching time. <Moncho Karimi - Last Filed: 12/23/18 17:43> CCU Subjective - Physician Review Subjective (Free Text): ICU Progress Note for Dr. Shin Pt seen and examined at bedside this am. Currently intubated and sedated. Unable to obtain further HPI or ROS due to current clinical status. No acute events reported overnight by staff. Hypertensive today, echo demonstrates EF 15%. CCU Objective - Vital Signs / Intake & Output Vital Signs (Last 4 hours): Vital Signs Pulse Resp BP Pulse Ox 12/23/18 11:00 118 H 26 H 178/103 H 100 12/23/18 10:51 116 H 29 H 178/103 H 100 Intake and Output (Last 8hrs): Intake & Output 12/22/18 12/23/18 12/23/18 22:59 06:59 14:59 Intake Total 557.2 1008.8 718.3 Output Total 550 650 421 Balance 7.2 358.8 297.3 Weight 156 lb Intake: IV 31.0 84 50.0 Intake, IV Amount 466.2 624.8 468.3 Right Medial Port Femoral 25.2 16.8 200 Right Proximal Port 21.0 28.0 28.3 Femoral right AC 100 right hand 420 480 240 Tube Feeding 60 300 200 Output: Urine 550 650 421 Urethral (Perez) 550 650 421 Other: # Bowel Movements 1 - Physical Exam Head: Positive for: Atraumatic, Normocephalic Pupils: Positive for: PERRL Extroacular Muscles: Positive for: EOMI. Negative for: Gaze Palsy Conjunctiva: Positive for: Normal Mouth: Positive for: Moist Mucous Membranes Neck: Positive for: Normal Range of Motion, Trachea Midline. Negative for: Meningeal Signs, MIDLINE TENDERNESS, Paraspinal Tenderness, JVD, Lymphadenopathy, Bruit, Other Respiratory/Chest: Positive for: Clear to Auscultation, Good Air Exchange, Other (currently intubated on vent). Negative for: Respiratory Distress, Accessory Muscle Use, Wheezes, Rales, Rhonchi Cardiovascular: Positive for: Normal S1, S2, Tachycardic. Negative for: Murmurs, Rub, Gallop Abdomen: Positive for: Normal Bowel Sounds. Negative for: Tenderness, Distention, Mass/Organomegaly Upper Extremity: Positive for: Normal Inspection, NORMAL PULSES, Neurovascularly Intact, Capillary Refill < 2s. Negative for: Cyanosis, Edema Lower Extremity: Positive for: Normal Inspection, NORMAL PULSES, Neurovascularly Intact, Capillary Refill < 2 s. Negative for: Edema Neurological: Positive for: Other (currently intubated and sedated) Skin: Positive for: Warm, Dry, Normal Color Psychiatric: Positive for: Other (intubated and sedated) - Medications Active Medications: Active Medications Generic Name Dose Route Start Last Admin Trade Name Freq PRN Reason Stop Dose Admin Acetaminophen 650 mg 12/21/18 15:53 12/22/18 23:02 Tylenol 650mg/20.3ml Solution Ud GT 650 mg Q6 PRN Administration Temperature Enoxaparin Sodium 30 mg 12/23/18 10:00 12/23/18 09:18 Lovenox SC 30 mg DAILY [place] Administration Hydrocortisone Sodium Succinate 50 mg 12/21/18 15:00 12/23/18 06:16 Solu-Cortef IV 50 mg Q8H [place] Administration Midazolam HCl 100 mg/ Dextrose 100 mls @ 1.42 mls/hr 12/21/18 04:30 12/23/18 03:52 IV Not Given .Q24H [place] Protocol 0.02 MG/KG/HR Vancomycin HCl 1,000 mg/ 250 mls @ 166.6 mls/hr 12/21/18 06:45 12/23/18 05:48 Sodium Chloride IVPB 166.6 mls/hr Q12H [place] Administration Protocol Propofol 1,000 mg in 100 mls @ 2.123 mls/hr 12/21/18 07:42 12/23/18 06:00 Diprivan IV 0 mcg/kg/min .Q24H PRN 0 mls/hr TITRATE PER MD ORDER Titration Protocol 5 MCG/KG/MIN Dexmedetomidine HCl 200 mcg/ 50 mls @ 3.52 mls/hr 12/22/18 17:22 12/23/18 12:13 Sodium Chloride IV 0.8 mcg/kg/hr TITR PRN 14.06 mls/hr Agitation Titration Protocol 0.2 MCG/KG/HR Potassium Chloride 20 meq in 100 mls @ 50 mls/hr 12/23/18 07:45 12/23/18 12:09 Potassium Chloride 20 Meq/100 Ml IVPB 12/23/18 15:44 50 mls/hr Q2H [place] Administration Piperacillin Sod/Tazobactam Sod 2.25 gm in 50 mls @ 100 mls/hr 12/23/18 12:45 12/23/18 13:48 Zosyn 2.25 Gm Iv Premix IVPB 100 mls/hr Q6H [place] Administration Labetalol HCl 200 mg 12/23/18 18:00 Trandate PO BID [place] Methimazole 20 mg 12/22/18 10:30 12/23/18 09:35 Tapazole PO 20 mg Q6H [place] Administration Pantoprazole Sodium 40 mg 12/21/18 10:15 12/23/18 09:18 Protonix Inj IVP 40 mg DAILY [place] Administration - Patient Studies Lab Studies: Microbiology Studies 12/22/18 11:57 Gram Stain - Final Trachasp Sputum Culture - Preliminary No growth. 12/22/18 11:57 Urine Culture - Final Urine,Perez No Growth (<1,000 CFU/ML) 12/21/18 08:39 Blood Culture - Preliminary Blood NO GROWTH AFTER 48 HOURS 12/21/18 08:39 Blood Culture - Preliminary Blood NO GROWTH AFTER 48 HOURS Lab Studies 12/23/18 12/23/18 12/23/18 Range/Units 06:25 06:25 06:20 WBC 9.3 (4.8-10.8) K/uL RBC 3.71 L (3.80-5.20) Mil/uL Hgb 10.4 L (11.0-16.0) g/dL Hct 31.8 L (34.0-47.0) % MCV 85.8 (81.0-99.0) fL MCH 28.0 (27.0-31.0) pg MCHC 32.6 L (33.0-37.0) g/dL RDW 14.9 H (11.5-14.5) % Plt Count 108 L D (130-400) K/uL MPV 9.1 (7.2-11.7) fL Neut % (Auto) 80.0 H (50.0-75.0) % Lymph % (Auto) 11.0 L (20.0-40.0) % [place] % (Auto) 9.0 (0.0-10.0) % Eos % (Auto) 0.0 (0.0-4.0) % Baso % (Auto) 0.0 (0.0-2.0) % Neut # (Auto) 7.5 H (1.8-7.0) K/uL Lymph # (Auto) 1.0 (1.0-4.3) K/uL [place] # (Auto) 0.8 (0.0-0.8) K/uL Eos # (Auto) 0.0 (0.0-0.7) K/uL Baso # (Auto) 0.0 (0.0-0.2) K/uL APTT 32 D (21-34) SECONDS Puncture Site pCO2 (35-45) mm/Hg pO2 (80-100) mm/Hg HCO3 (21-28) mmol/L ABG pH (7.35-7.45) ABG Total CO2 (22-28) mmol/L ABG O2 Saturation (95-98) % ABG Base Excess (-2.0-3.0) mmol/L Howard Test ABG Potassium (3.6-5.2) mmol/L A-a O2 Difference mm/Hg Respiratory Index Sodium 146 (132-148) mmol/l Chloride 113 H (98-107) mmol/L Glucose (65-105) mg/dl Lactate (0.7-2.1) mmol/L Vent Mode Mechanical Rate FiO2 % Tidal Volume PEEP Potassium 2.9 L (3.6-5.2) mmol/L Carbon Dioxide 25 (22-30) mmol/L Anion Gap 10 (10-20) BUN 37 H (7-17) mg/dL Creatinine 2.1 H (0.7-1.2) mg/dL Est GFR ( Amer) 30 Est GFR (Non-Af Amer) 25 Random Glucose 273 H D (65-105) mg/dL Calcium 7.0 L (8.6-10.4) mg/dl Phosphorus 4.4 (2.5-4.5) mg/dL Magnesium 1.8 (1.6-2.3) mg/dL Total Bilirubin 0.6 (0.2-1.3) mg/dL AST 462 H D (14-36) U/L ALT 475 H (9-52) U/L Alkaline Phosphatase 71 (38-126) U/L Total Protein 5.3 L (6.3-8.3) g/dL Albumin 2.4 L (3.5-5.0) g/dL Globulin 2.9 (2.2-3.9) gm/dL Albumin/Globulin Ratio 0.8 L (1.0-2.1) Thyroglobulin, Quant (2.8-40.9) ng/mL Arterial Blood Potassium (3.6-5.2) mmol/L Thyroperoxidase Ab (<9) IU/mL Thyroglobulin Antibody (< OR = 1) IU/mL 12/23/18 12/21/18 12/21/18 Range/Units 05:25 07:15 07:15 WBC (4.8-10.8) K/uL RBC (3.80-5.20) Mil/uL Hgb (11.0-16.0) g/dL Hct (34.0-47.0) % MCV (81.0-99.0) fL MCH (27.0-31.0) pg MCHC (33.0-37.0) g/dL RDW (11.5-14.5) % Plt Count (130-400) K/uL MPV (7.2-11.7) fL Neut % (Auto) (50.0-75.0) % Lymph % (Auto) (20.0-40.0) % [place] % (Auto) (0.0-10.0) % Eos % (Auto) (0.0-4.0) % Baso % (Auto) (0.0-2.0) % Neut # (Auto) (1.8-7.0) K/uL Lymph # (Auto) (1.0-4.3) K/uL [place] # (Auto) (0.0-0.8) K/uL Eos # (Auto) (0.0-0.7) K/uL Baso # (Auto) (0.0-0.2) K/uL APTT (21-34) SECONDS Puncture Site Rr pCO2 37 (35-45) mm/Hg pO2 216 H (80-100) mm/Hg HCO3 25.4 (21-28) mmol/L ABG pH 7.43 (7.35-7.45) ABG Total CO2 25.7 (22-28) mmol/L ABG O2 Saturation 99.9 H (95-98) % ABG Base Excess 0.5 (-2.0-3.0) mmol/L Howard Test Pos ABG Potassium 2.8 L (3.6-5.2) mmol/L A-a O2 Difference 166.0 mm/Hg Respiratory Index 0.8 Sodium 147.0 (132-148) mmol/l Chloride 117.0 H (98-107) mmol/L Glucose 259 H (65-105) mg/dl Lactate 1.3 (0.7-2.1) mmol/L Vent Mode Prvc Mechanical Rate 22 FiO2 60.0 % Tidal Volume 400 PEEP 5 Potassium (3.6-5.2) mmol/L Carbon Dioxide (22-30) mmol/L Anion Gap (10-20) BUN (7-17) mg/dL Creatinine (0.7-1.2) mg/dL Est GFR ( Amer) Est GFR (Non-Af Amer) Random Glucose (65-105) mg/dL Calcium (8.6-10.4) mg/dl Phosphorus (2.5-4.5) mg/dL Magnesium (1.6-2.3) mg/dL Total Bilirubin (0.2-1.3) mg/dL AST (14-36) U/L ALT (9-52) U/L Alkaline Phosphatase (38-126) U/L Total Protein (6.3-8.3) g/dL Albumin (3.5-5.0) g/dL Globulin (2.2-3.9) gm/dL Albumin/Globulin Ratio (1.0-2.1) Thyroglobulin, Quant 492.3 H (2.8-40.9) ng/mL Arterial Blood Potassium 2.8 L (3.6-5.2) mmol/L Thyroperoxidase Ab >900 H (<9) IU/mL Thyroglobulin Antibody <1 (< OR = 1) IU/mL Laboratory Results - last 24 hr 12/21/18 12/21/18 12/23/18 07:15 07:15 05:25 WBC RBC Hgb Hct MCV MCH MCHC RDW Plt Count MPV Neut % (Auto) Lymph % (Auto) [place] % (Auto) Eos % (Auto) Baso % (Auto) Neut # (Auto) Lymph # (Auto) [place] # (Auto) Eos # (Auto) Baso # (Auto) APTT Puncture Site Rr pCO2 37 pO2 216 H HCO3 25.4 ABG pH 7.43 ABG Total CO2 25.7 ABG O2 Saturation 99.9 H ABG Base Excess 0.5 Howard Test Pos ABG Potassium 2.8 L A-a O2 Difference 166.0 Respiratory Index 0.8 Sodium 147.0 Chloride 117.0 H Glucose 259 H Lactate 1.3 Vent Mode Prvc Mechanical Rate 22 FiO2 60.0 Tidal Volume 400 PEEP 5 Potassium Carbon Dioxide Anion Gap BUN Creatinine Est GFR ( Amer) Est GFR (Non-Af Amer) Random Glucose Calcium Phosphorus Magnesium Total Bilirubin AST ALT Alkaline Phosphatase Total Protein Albumin Globulin Albumin/Globulin Ratio Thyroglobulin, Quant 492.3 H Arterial Blood Potassium 2.8 L Thyroperoxidase Ab >900 H Thyroglobulin Antibody <1 12/23/18 12/23/18 12/23/18 06:20 06:25 06:25 WBC 9.3 RBC 3.71 L Hgb 10.4 L Hct 31.8 L MCV 85.8 MCH 28.0 MCHC 32.6 L RDW 14.9 H Plt Count 108 L D MPV 9.1 Neut % (Auto) 80.0 H Lymph % (Auto) 11.0 L [place] % (Auto) 9.0 Eos % (Auto) 0.0 Baso % (Auto) 0.0 Neut # (Auto) 7.5 H Lymph # (Auto) 1.0 [place] # (Auto) 0.8 Eos # (Auto) 0.0 Baso # (Auto) 0.0 APTT 32 D Puncture Site pCO2 pO2 HCO3 ABG pH ABG Total CO2 ABG O2 Saturation ABG Base Excess Ho[place]rd Test ABG Potassium A-a O2 Difference Respiratory Index Sodium 146 Chloride 113 H Glucose Lactate Vent Mode Mechanical Rate FiO2 Tidal Volume PEEP Potassium 2.9 L Carbon Dioxide 25 Anion Gap 10 BUN 37 H Creatinine 2.1 H Est GFR ( Amer) 30 Est GFR (Non-Af Amer) 25 Random Glucose 273 H D Calcium 7.0 L Phosphorus 4.4 Magnesium 1.8 Total Bilirubin 0.6 AST 462 H D ALT 475 H Alkaline Phosphatase 71 Total Protein 5.3 L Albumin 2.4 L Globulin 2.9 Albumin/Globulin Ratio 0.8 L Thyroglobulin, Quant Arterial Blood Potassium Thyroperoxidase Ab Thyroglobulin Antibody Radiology Impressions: Radiology Impressions Chest X-Ray 12/23/18 06:00 IMPRESSION: Little interval change in presumable mild congestive heart failure. Review of Systems - Review of Systems Systems not reviewed;Unavailable: Intubated Assessment/Plan - Assessment and Plan (Free Text) Assessment: 48 y o female PMhx HTN, hyperthyroidism, TIA, anxiety, asthma, Grave's disease, who presented to the ED overnight with c/o severe abd pain, n/v. Per ED pt did not take home meds for about 3 wks, non-compliant with therapy. Pt presented hypertensive and tachycardic in ED, TSH < 0.02 on initial bloodwork, was given IV Labetalol and PO Inderal in the ED. Pt's bp began to drop after and was given fluids and IV glucagon. Pt was evaluated and accepted by ICU team at time, however prior to transfer, started to become bradycardic and went pulseless. Zandra Sanchez was called in ED and pt was resuscitated, ROSC achieved s/p epi x1. Pt subsequently was intubated and placed on mechanical vent. Pt had 2 additional episodes of cardiac arrest while being transferred to ICU that lasted 3-4 mins of chest compressions, received total epi x3 and atropine x1. ROSC achieved, pt had R femoral line placed, started on Levophed drip. Bedside echo revealed severely dilated R ventricle, raising suspicion for possible PE, pt was bolused and started on Heparin drip. Pt also has severe hypokinesis of L ventricle. Pt presented with severe metabolic acidosis, hyperkalemia and hypoglycemia. S/p 4 amps bicarb, 1 amp Ca gluconate, 1 amp D50. Currently being monitored in ICU, intubated on vent and sedated. Admitted for ICU for management of thyrotoxicosis. Plan: Neuro: -Intubated and sedated on vent, Versed drip, wean off as tolerated -Cont to monitor -Head CT on admission: Limited study given suboptimal pt positing. Streak artifact in posterior fossa limits eval at that level. No acute intracranial abnormality. Cardio: -Tachycardia persistent, hypertensive -Levophed drip d/c'd -Labetalol increased to 200 mg PO bid -Solu-cortef 50 mg tid -Echo: LV function severely reduced with diffuse hypokineses, LVEF 15%. Inferoapex and apical-septum akinetic. LSub optimal assessment of wall motion due to reduced study quality, apex not well seen. IV echo contrast would have improved assessment. R ventricle mod-markedly dilated. RVSF mod reduced. Mild aortic regurg. Mod tricuspid regurg. Ascending aorta mildly dilated. -Hyperkalemia resolved s/p rx, cont to trend on labs -Venous duplex LE b/l neg for DVT -S/p placement of R femoral triple lumen catheter -Cardiology consulted (Dr. Bah), recs appreciated -CT angio chest neg for PE, Heparin drip d/c'd Pulm: -Currently on vent, sedated with Versed, wean off as tolerated -Metabolic acidosis improving with most recent ABG -Recent CXR: Little interval change in presumable mild CHF -Leukocytosis resolved -C/w Vanc/zosyn GI: -NPO -Tube feeds -IVF d/c'd 2/2 fluid overload -Protonix -Unable to assess abd pain currently 2/2 pt's current mental status -Transaminitis present, may be 2/2 to shock liver, cont to trend Heme: -H/H downtrending, may be 2/2 dilutional effect, cont to trend -No leukocytosis ID: -Leukocytosis, cont to trend -Vanco/zosyn -Blood cx pending Endo: -Hx Grave's disease, pt non-compliant with home meds x3 weeks -TSH < 0.02 on admission -R/o thyroid storm? as etiology of symptoms, thyrotoxicosis -Endocrinology (Dr. Weaver) consulted, recs appreciated -Methimazole 20 mg PO q8h, Solu-cortef 50 mg q8h -T4, thyroid Ig ordered; serum cortisol wnl Renal: -BUN/Cr trending up cont to monitor -Cont to trend I's/O's -Nephro consulted for TANVI (Dr. Call), recs appreciated PPX: -Protonix -Lovenox, SCD Pt seen, examined with, and plan discussed with Dr. Shin, attending physician. Moncho Karimi, PGY-1, Collection Coordinator Pager #[phone]
--- NOTE | 2018-12-23 14:31 | CP.PCM.CON ---
History of Present Illness - History of Present Illness History of Present Illness: Nephrology Consultation Note: Assessment: Stable Non-oliguric Acute Kidney Injury (N17.9) likely due to renal hypoperfusion due to cardiac arrest/hypotension leading to ATN, had exposure to IV contrast in addition uncontrolled severe HTN hypokalemia, hyperkalemia, HAGMA/lactic acidosis hypertension (years) obesity hyperthyroidism thyroid storm, cardiac arrest s/p resuscitation BiV failure with LVEF 15%, sepsis Plan No acute need for renal replacement therapy at this time. Hypertension control with meds as ordered. Maintain hemodynamics stable. Avoid hypotension. Patient not on ACEI/ARB due to recent TANVI. agree with beta=blockers Monitor Input/Output, daily weights and renal function with basic metabolic panel lasix prn to maintain euvolemia as tolerated by BP supplement lytes as needed dose Vanco by level endocrine and cardiology following renal sono once she is stable Dose meds/antibiotics for reduced GFR. Avoid fleets enema/magnesium based laxatives. Avoid nephrotoxins/NSAIDs/ iodinated contrast (unless needed julio rgently) Glycemic control Further work up/management as per primary team Thanks for allowing me to participate in care of your patient. Will follow patient with you. Please call if any Qs Dr Darshan Call Office: [phone] Chief Complaint; unable Reason for consult: Acute Kidney Injury HPI: Pt is a 48 F with hx of hypertension (years) obesity hyperthyroidism presented with complaints of pain abdomen and found to have thyroid storm, cardiac arrest s/p resuscitation, foudn to have BiV failure with LVEF 15%, sepsis and also with TANVI hence renal consulted no known OTC/herbal meds or NSAIDs Noted recent iodinated contrast exposure as CTA. Noted obvious episodes of low BP. ROS: unable to obtain from pt Physical Examination: General Appearance: Comfortable, in no acute respiratory distress, ill appearing intubated sedated Vitals reviewed and noted as below Head; Atraumatic, normocephalic ENT: no ulcers no thrush. Tongue is midline. Oropharynx: no rash or ulcers. EYES: Pupils are equal, round and sluggish to light accommodation. Eye muscles a nd extraocular movement intact. Sclera is anicteric. Neck; supple no lymphadenopathy, gross thyromegaly noted Lungs: Normal respiratory rate/effort. Breath sounds reduced at bases Heart: Incree rate. s1s2 normal. No rub or gallop. Extremities: no edema. No varicose veins Neurological: Patient is sedated Skin: Warm and dry. Normal turgor. No rash. Palpitation: Normal elasticity for age Abdomen: Abdomen is soft. Bowel sounds +. There is no abdominal tenderness, no guarding/rigidity no organomegaly Psych: unable MSK: no joint tenderness or swelling. Digits and nails normal, no deformity : kidney or bladder not palpable Labs/imaging reviewed. Past medical history, past surgical history, family history, social history, allergy reviewed and noted as below Family hx: no hx of CKD. Rest non-contributory Past Patient History - Infectious Disease Hx of Infectious Diseases: None - Past Medical History & Family History Past Medical History?: Yes - Past Social History Smoking Status: Never Smoked - CARDIAC Hx Cardiac Disorders: Yes Hx Hypertension: Yes - PULMONARY Hx Respiratory Disorders: Yes Hx Asthma: Yes - NEUROLOGICAL Hx Neurological Disorder: No - HEENT Hx HEENT Problems: Yes Other/Comment: uses glasses for reading - RENAL Hx Chronic Kidney Disease: No - ENDOCRINE/METABOLIC Hx Endocrine Disorders: Yes Hx Hyperthyroidism: Yes Hx Hypothyroidism: Yes - HEMATOLOGICAL/ONCOLOGICAL Hx Blood Disorders: No - INTEGUMENTARY Hx Dermatological Problems: No - MUSCULOSKELETAL/RHEUMATOLOGICAL Hx Musculoskeletal Disorders: Yes Hx Falls: Yes - GASTROINTESTINAL Hx Gastrointestinal Disorders: No - GENITOURINARY/GYNECOLOGICAL Hx Genitourinary Disorders: No - PSYCHIATRIC Hx Psychophysiologic Disorder: Yes Hx Anxiety: Yes - SURGICAL HISTORY Hx Surgeries: No - ANESTHESIA Hx Anesthesia: No Hx Anesthesia Reactions: No Hx Malignant Hyperthermia: No Has any member of the family had a problem w/ anesthesia?: No Meds Allergies/Adverse Reactions: Allergies Allergy/AdvReac Type Severity Reaction Status Date / Time No Known Allergies Allergy Verified 04/16/16 12:57 - Medications Medications: Current Medications Acetaminophen (Tylenol 650mg/20.3ml Solution Ud) 650 mg GT Q6 PRN PRN Reason: Temperature Last Admin: 12/22/18 23:02 Dose: 650 mg Enoxaparin Sodium (Lovenox) 30 mg SC DAILY [facility] Last Admin: 12/23/18 09:18 Dose: 30 mg Hydrocortisone Sodium Succinate (Solu-Cortef) 50 mg IV Q8H [facility] Last Admin: 12/23/18 14:22 Dose: 50 mg Midazolam HCl 100 mg/ Dextrose 100 mls @ 1.42 mls/hr IV .Q24H [place]; Protocol Last Admin: 12/23/18 03:52 Dose: Not Given Vancomycin HCl 1,000 mg/ (Sodium Chloride) 250 mls @ 166.6 mls/hr IVPB Q12H [place]; Protocol Last Admin: 12/23/18 05:48 Dose: 166.6 mls/hr Propofol (Diprivan) 1,000 mg in 100 mls @ 2.123 mls/hr IV .Q24H PRN; Protocol PRN Reason: TITRATE PER MD ORDER Last Titration: 12/23/18 06:00 Dose: 0 mcg/kg/min, 0 mls/hr Dexmedetomidine HCl 200 mcg/ (Sodium Chloride) 50 mls @ 3.52 mls/hr IV TITR PRN; Protocol PRN Reason: Agitation Last Titration: 12/23/18 12:13 Dose: 0.8 mcg/kg/hr, 14.06 mls/hr Potassium Chloride (Potassium Chloride 20 Meq/100 Ml) 20 meq in 100 mls @ 50 mls/hr IVPB Q2H [place] Stop: 12/23/18 15:44 Last Admin: 12/23/18 14:11 Dose: 50 mls/hr Piperacillin Sod/Tazobactam Sod (Zosyn 2.25 Gm Iv Premix) 2.25 gm in 50 mls @ 100 mls/hr IVPB Q6H [facility] Last Admin: 12/23/18 13:48 Dose: 100 mls/hr Labetalol HCl (Trandate) 200 mg PO BID [place] Methimazole (Tapazole) 20 mg PO Q6H [facility] Last Admin: 12/23/18 09:35 Dose: 20 mg Pantoprazole Sodium (Protonix Inj) 40 mg IVP DAILY [facility] Last Admin: 12/23/18 09:18 Dose: 40 mg Results - Vital Signs Recent Vital Signs: Last Vital Signs Temp 98.3 F 12/23/18 08:00 Pulse 118 H 12/23/18 11:00 Resp 26 H 12/23/18 11:00 BP 178/103 H 12/23/18 11:00 Pulse Ox 100 12/23/18 11:00 - Labs Result Diagrams: 12/23/18 06:25 12/23/18 06:20 Labs: Laboratory Results - last 24 hr 12/21/18 12/21/18 12/23/18 07:15 07:15 05:25 WBC RBC Hgb Hct MCV MCH MCHC RDW Plt Count MPV Neut % (Auto) Lymph % (Auto) [place] % (Auto) Eos % (Auto) Baso % (Auto) Neut # (Auto) Lymph # (Auto) [place] # (Auto) Eos # (Auto) Baso # (Auto) APTT Puncture Site Rr pCO2 37 pO2 216 H HCO3 25.4 ABG pH 7.43 ABG Total CO2 25.7 ABG O2 Saturation 99.9 H ABG Base Excess 0.5 Howard Test Pos ABG Potassium 2.8 L A-a O2 Difference 166.0 Respiratory Index 0.8 Sodium 147.0 Chloride 117.0 H Glucose 259 H Lactate 1.3 Vent Mode Prvc Mechanical Rate 22 FiO2 60.0 Tidal Volume 400 PEEP 5 Potassium Carbon Dioxide Anion Gap BUN Creatinine Est GFR ( Amer) Est GFR (Non-Af Amer) Random Glucose Calcium Phosphorus Magnesium Total Bilirubin AST ALT Alkaline Phosphatase Total Protein Albumin Globulin Albumin/Globulin Ratio Thyroglobulin, Quant 492.3 H Arterial Blood Potassium 2.8 L Thyroperoxidase Ab >900 H Thyroglobulin Antibody <1 12/23/18 12/23/18 12/23/18 06:20 06:25 06:25 WBC 9.3 RBC 3.71 L Hgb 10.4 L Hct 31.8 L MCV 85.8 MCH 28.0 MCHC 32.6 L RDW 14.9 H Plt Count 108 L D MPV 9.1 Neut % (Auto) 80.0 H Lymph % (Auto) 11.0 L [place] % (Auto) 9.0 Eos % (Auto) 0.0 Baso % (Auto) 0.0 Neut # (Auto) 7.5 H Lymph # (Auto) 1.0 [place] # (Auto) 0.8 Eos # (Auto) 0.0 Baso # (Auto) 0.0 APTT 32 D Puncture Site pCO2 pO2 HCO3 ABG pH ABG Total CO2 ABG O2 Saturation ABG Base Excess Howard Test ABG Potassium A-a O2 Difference Respiratory Index Sodium 146 Chloride 113 H Glucose Lactate Vent Mode Mechanical Rate FiO2 Tidal Volume PEEP Potassium 2.9 L Carbon Dioxide 25 Anion Gap 10 BUN 37 H Creatinine 2.1 H Est GFR ( Amer) 30 Est GFR (Non-Af Amer) 25 Random Glucose 273 H D Calcium 7.0 L Phosphorus 4.4 Magnesium 1.8 Total Bilirubin 0.6 AST 462 H D ALT 475 H Alkaline Phosphatase 71 Total Protein 5.3 L Albumin 2.4 L Globulin 2.9 Albumin/Globulin Ratio 0.8 L Thyroglobulin, Quant Arterial Blood Potassium Thyroperoxidase Ab Thyroglobulin Antibody
--- NOTE | 2018-12-23 20:06 | PN ---
DATE: 12/23/2018 ENDOCRINOLOGY FOLLOWUP NOTE LOCATION: ICU Room 18. SUBJECTIVE: This is a 48-year-old female with recent cardiopulmonary arrest and remains endotracheally intubated and sedated with persistent tachycardia as noted and is now being followed closely for metabolic management. She also developed febrile episodes overnight as noted. LABORATORY DATA: Her latest chemistries showed a BUN of 37, sodium 146, potassium 2.9, chloride 113, CO2 of 25, glucose 273 and creatinine 2.1. Her last thyroxine level was 22.3 with a free T4 of 5.67 and a free T3 of 22.8. The quantitative thyroglobulin level is 492.3. The TSH receptor antibody is still pending at this time. The TSH level is less than 0.02. ASSESSMENT: This is a 48-year-old female with overt thyrotoxicosis with marked hyperthyroidism noted both historically, clinically, and biochemically, presenting here with diffuse upper abdominal pain and intractable vomiting episodes and developed sudden bradycardia following the administration of labetalol and propanolol medications as given. Her echocardiogram also showed markedly dilated right ventricle with diffuse hypokinesis of the left ventricular function and an ejection fraction of about 15% as noted. PLAN: So at this time, we will continue the suprapharmacologic dosing of Tapazole given as 20 mg orally through nasogastric tube every six hours as ordered. We will continue the empirical initiation of hydrocortisone given as 60 mg every 8 hours as this will also inhibit and impair the conversion of T4 to T3 which is a more potent hormone at this time. We will obtain serial chemistries and supplement accordingly as needed. We will follow. Linda Weaver MD
--- NOTE | 2018-12-23 20:21 | CP.PCM.PN ---
Subjective - Date & Time of Evaluation Date of Evaluation: 12/23/18 Time of Evaluation: 12:30 - Subjective Subjective: clinically same Objective - Vital Signs/Intake and Output Vital Signs (last 24 hours): Temp Pulse Resp BP Pulse Ox 98.2 F 119 H 24 184/105 H 99 12/23/18 16:00 12/23/18 20:00 12/23/18 20:00 12/23/18 19:51 12/23/18 20:00 Intake and Output: 12/23/18 12/24/18 18:59 06:59 Intake Total 1268.3 60 Output Total 1476 395 Balance -207.7 -335 - Medications Medications: Current Medications Acetaminophen (Tylenol 650mg/20.3ml Solution Ud) 650 mg GT Q6 PRN PRN Reason: Temperature Last Admin: 12/22/18 23:02 Dose: 650 mg Enoxaparin Sodium (Lovenox) 30 mg SC DAILY [facility] Last Admin: 12/23/18 09:18 Dose: 30 mg Furosemide (Lasix) 40 mg IVP DAILY [facility] Hydrocortisone Sodium Succinate (Solu-Cortef) 50 mg IV Q8H [facility] Last Admin: 12/23/18 14:22 Dose: 50 mg Midazolam HCl 100 mg/ Dextrose 100 mls @ 1.42 mls/hr IV .Q24H [place]; Protocol Last Admin: 12/23/18 03:52 Dose: Not Given Propofol (Diprivan) 1,000 mg in 100 mls @ 2.123 mls/hr IV .Q24H PRN; Protocol PRN Reason: TITRATE PER MD ORDER Last Titration: 12/23/18 06:00 Dose: 0 mcg/kg/min, 0 mls/hr Dexmedetomidine HCl 200 mcg/ (Sodium Chloride) 50 mls @ 3.52 mls/hr IV TITR PRN; Protocol PRN Reason: Agitation Last Titration: 12/23/18 16:55 Dose: 0 mcg/kg/hr, 0 mls/hr Labetalol HCl (Trandate) 200 mg PO BID [facility] Last Admin: 12/23/18 17:29 Dose: 200 mg Methimazole (Tapazole) 20 mg PO Q6H [facility] Last Admin: 12/23/18 17:26 Dose: 20 mg Pantoprazole Sodium (Protonix Inj) 40 mg IVP DAILY [facility] Last Admin: 12/23/18 09:18 Dose: 40 mg - Labs Labs: 12/23/18 06:25 12/23/18 06:20 PT 19.6 SECONDS (9.7-12.2) H 12/22/18 08:55 INR 1.8 12/22/18 08:55 APTT 32 SECONDS (21-34) D 12/23/18 06:25 - Constitutional Appears: Well - Head Exam Head Exam: ATRAUMATIC, NORMAL INSPECTION, NORMOCEPHALIC - Eye Exam Eye Exam: EOMI, Normal appearance, PERRL Pupil Exam: NORMAL ACCOMODATION, PERRL - ENT Exam ENT Exam: Mucous Membranes Moist, Normal Exam - Neck Exam Neck Exam: Full ROM, Normal Inspection. absent: Lymphadenopathy - Respiratory Exam Respiratory Exam: Decreased Breath Sounds - Cardiovascular Exam Cardiovascular Exam: REGULAR RHYTHM, +S1, +S2 - GI/Abdominal Exam GI & Abdominal Exam: Soft, Diminished Bowel Sounds - Rectal Exam Rectal Exam: Deferred
[2018-12-23] MEDS: Acetaminophen 650mg/20.3ml solution UD GT PRN (21:11)
[2018-12-24] MEDS: Dexmedetomidine Hydrochloride 200 MCG in Sodium Chloride 0.9% 48 ML IV PRN ×4 (02:18→20:15)
[2018-12-24] MEDS: Midazolam 50 mg/10 ml 100 MG in Dextrose 5% In Water 80 ML IV SCH (04:12)
[2018-12-24 05:21] LABS: ABG ALLEN TEST POS; ARTERIAL BLOOD GAS HCO3 27.7 mmol/L (21-28); ARTERIAL BLOOD GAS HEMOGLOBIN 10.3 g/dL (11.7-17.4); ARTERIAL BLOOD GAS O2 SAT 99.6 % (95-98); ARTERIAL BLOOD GAS PCO2 40 mm/Hg (35-45); ARTERIAL BLOOD GAS PH 7.45 (7.35-7.45); ARTERIAL BLOOD GAS PO2 142 mm/Hg (80-100)
[2018-12-24 06:41] LABS: BASO % 0.2 % (0.0-2.0); EOS % 0.1 % (0.0-4.0); HEMOGLOBIN 10.9 g/dL (11.0-16.0); LYMPH % 11.3 % (20.0-40.0); MEAN CELL VOLUME 88.1 fL (81.0-99.0); MEAN CORPUSCULAR HEMOGLOBIN 29.1 pg (27.0-31.0); MEAN CORPUSCULAR HGB CONC 33.1 g/dL (33.0-37.0); MEAN PLATELET VOLUME 9.6 fL (7.2-11.7); MONO # 0.6 K/uL (0.0-0.8); MONO % 7.2 % (0.0-10.0); NEUT # 7.3 K/uL (1.8-7.0); NEUT % 81.2 % (50.0-75.0); RBC 3.75 Mil/uL (3.80-5.20); RED CELL DISTRIBUTION WIDTH 14.9 % (11.5-14.5)
[2018-12-24 06:45] LABS: ALBUMIN 2.8 g/dL (3.5-5.0)
[2018-12-24] MEDS ORDERED: Labetalol 5mg/ml (4ml) IVP STA (08:05)
[2018-12-24] MEDS ORDERED: (Novolog) Insulin Aspart, Recombinant 100 u/ml 10 ml vial SC SCH (08:30)
[2018-12-24] MEDS ORDERED: Potassium Chloride 20 mEq/15 ml LIQ UD PO ONE (08:30)
[2018-12-24] MEDS: Nitroglycerin 2% Ointment Foilpak UD TOP SCH ×3 (08:59→20:44)
[2018-12-24] MEDS: Propofol 10 mg/ml 1,000 MG/100 ML VIAL IV PRN (09:26)
--- NOTE | 2018-12-24 09:32 | PN ---
DATE: 12/24/2018 ENDOCRINOLOGY FOLLOWUP NOTE LOCATION: In ICU, room 18. SUBJECTIVE: This is a 48-year-old female with recent overt thyrotoxicosis, presenting here with diffuse abdominal pain and supervening acute cardiopulmonary arrest and is currently intubated and sedated as noted otherwise. She remains tachycardic and surprisingly has improved remarkably metabolically with her thyroid function studies as noted. She has received high-dose medical therapy for hyperthyroidism as given. Her latest chemistry showed a BUN of 39, sodium 148, potassium 3.4, chloride 116, CO2 of 25, glucose 230, and creatinine 1.7. Her liver transaminases are improving remarkably overnight as noted with AST level of 178 and ALT of 326. Her repeat thyroxin or total T4 is 13.8 with a TSH of less than 0.02 as noted. Her serum cortisol level is 23.2 mcg per dL. ASSESSMENT: This is a 48-year-old female with recent acute cardiopulmonary arrest and remains endotracheally intubated and sedated and is now being followed closely in the intensive care unit for hemodynamic monitoring with persistent tachycardia as noted. She also has overt thyrotoxicosis presenting here with marked hyperthyroidism, noted both historically clinically and biochemically related to drug omission with underlying Graves disease. PLAN OF MANAGEMENT: We will modify her medical therapy with Tapazole to be lowered down to 20 mg every 8 hours as ordered. We will obtain serial thyroid studies and titrate her dose regimen accordingly. We will also lower the hydrocortisone to 50 mg IV every 12 hours as ordered. We will obtain serial chemistries and supplement accordingly as needed. We will follow. Linda Weaver MD
[2018-12-24] MEDS: Enoxaparin 30 mg Syringe SC SCH (09:33)
[2018-12-24] MEDS: Acetaminophen 650mg/20.3ml solution UD GT PRN (10:31)
--- NOTE | 2018-12-24 10:44 | CP.PCM.PN ---
Subjective - Date & Time of Evaluation Date of Evaluation: 12/24/18 Time of Evaluation: 07:20 - Subjective Subjective: Events reviewed. Chart reviewed. Objective - Vital Signs/Intake and Output Vital Signs (last 24 hours): Temp Pulse Resp BP Pulse Ox 98.7 F 118 H 22 183/105 H 100 12/24/18 04:00 12/24/18 07:13 12/24/18 07:13 12/24/18 09:30 12/24/18 07:13 Intake and Output: 12/24/18 12/24/18 06:59 18:59 Intake Total 645.0 84 Output Total 2260 Balance -1615.0 84 - Medications Medications: Current Medications Acetaminophen (Tylenol 650mg/20.3ml Solution Ud) 650 mg GT Q6 PRN PRN Reason: Temperature Last Admin: 12/23/18 21:11 Dose: 650 mg Aspirin (Aspirin Chewable) 81 mg PO DAILY [facility] Last Admin: 12/24/18 09:30 Dose: 81 mg Carvedilol (Coreg) 25 mg PO BID [facility] Last Admin: 12/24/18 09:30 Dose: 25 mg Enoxaparin Sodium (Lovenox) 30 mg SC DAILY [facility] Last Admin: 12/24/18 09:33 Dose: 30 mg Furosemide (Lasix) 40 mg IVP DAILY [facility] Last Admin: 12/24/18 09:28 Dose: 40 mg Hydralazine HCl (Apresoline) 25 mg PO QID [facility] Last Admin: 12/24/18 09:30 Dose: 25 mg Hydrocortisone Sodium Succinate (Solu-Cortef) 50 mg IV Q12H [facility] Last Admin: 12/24/18 09:29 Dose: 50 mg Midazolam HCl 100 mg/ Dextrose 100 mls @ 1.42 mls/hr IV .Q24H [place]; Protocol Last Admin: 12/24/18 04:12 Dose: Not Given Propofol (Diprivan) 1,000 mg in 100 mls @ 2.123 mls/hr IV .Q24H PRN; Protocol PRN Reason: TITRATE PER MD ORDER Last Admin: 12/24/18 09:26 Dose: 23.55 mcg/kg/min, 10 mls/hr Dexmedetomidine HCl 200 mcg/ (Sodium Chloride) 50 mls @ 3.52 mls/hr IV TITR PRN; Protocol PRN Reason: Agitation Last Admin: 12/24/18 09:32 Dose: 1 mcg/kg/hr, 17.58 mls/hr Insulin Aspart (Novolog) 0 unit SC Q6H [place]; Protocol Methimazole (Tapazole) 20 mg PO Q8H [place] Nitroglycerin (Nitro-Bid 2% Oint) 1 ea TOP Q6H [place] Last Admin: 12/24/18 08:59 Dose: 1 ea Pantoprazole Sodium (Protonix Inj) 40 mg IVP DAILY [place] Last Admin: 12/24/18 09:29 Dose: 40 mg - Labs Labs: 12/24/18 06:28 12/24/18 06:27 PT 19.6 SECONDS (9.7-12.2) H 12/22/18 08:55 INR 1.8 12/22/18 08:55 APTT 32 SECONDS (21-34) D 12/23/18 06:25 Assessment and Plan - Assessment and Plan (Free Text) Assessment: - Respiratory Exam Respiratory Exam: Decreased Breath Sounds, Wheezes - Cardiovascular Exam Cardiovascular Exam: REGULAR RHYTHM, RRR, +S1, +S2. absent: JVD - GI/Abdominal Exam GI & Abdominal Exam: Normal Bowel Sounds. absent: Organomegaly - Extremities Exam Extremities Exam: absent: Pedal Edema Assessment and Plan - Assessment and Plan (Free Text) Assessment: 48 year old female with respiratory failure on ventilator on FiO2 30% Anoxic brain injury consider neurology evaluation Severe biventricular failure currently euvolemic, Continue coreg hydralazine Consider central access and measure central venous gas O2 saturation to estimate cardiac output Hyperthyroid on tapazol and beta blockers Cardiac arrest difficult to determine due to multifactorial etiology, no evidence of Vtach/Vfib in 24 hours Critical care time 39 minutes.
[2018-12-24] MEDS: (Novolog) Insulin Aspart, Recombinant 100 u/ml 10 ml vial SC SCH ×2 (12:37→18:16)
--- NOTE | 2018-12-24 12:41 | RAD ---
Date of service: 12/24/2018 HISTORY: vented COMPARISON: 12/23/2018 TECHNIQUE: 1 view obtained. FINDINGS: LUNGS: Patchy opacity at right base may reflect atelectasis or infiltrate. Follow-up advised. No other abnormal opacity. PLEURA: No significant pleural effusion identified, no pneumothorax apparent. CARDIOVASCULAR: No aortic atherosclerotic calcification present. Normal cardiac size. ET tube and NG tube are unchanged in position. OSSEOUS STRUCTURES: No significant abnormalities. VISUALIZED UPPER ABDOMEN: Normal. OTHER FINDINGS: None. IMPRESSION: Opacity at medial right base. Possible pneumonia versus atelectasis. Follow-up advised. Lines and tubes unchanged.
--- NOTE | 2018-12-24 13:00 | CP.PCM.PN ---
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%, sepsis hypernatremia Plan Renal function improved bp meds started today - monitoring response Monitor Input/Output, daily weights and renal function with basic metabolic panel lasix prn to maintain euvolemia as tolerated by BP supplement lytes as needed dose Vanco by level can start free water flush for hypernatremia endocrine and cardiology following s: seen and examined intubated and sedated Physical Examination: General Appearance: Comfortable, in no acute respiratory distress, ill appearing intubated sedated Vitals reviewed and noted as below Head; Atraumatic, normocephalic ENT: no ulcers no thrush. Tongue is midline. Oropharynx: no rash or ulcers. EYES: Pupils are equal, round and sluggish to light accommodation. Eye muscles and extraocular movement intact. Sclera is anicteric. Neck; supple no lymphadenopathy, gross thyromegaly noted Lungs: Normal respiratory rate/effort. Breath sounds reduced at bases Heart:tachy. s1s2 normal. No rub or gallop. Extremities: no edema. No varicose veins Neurological: Patient is sedated Skin: Warm and dry. Normal turgor. No rash. Palpitation: Normal elasticity for age Abdomen: Abdomen is soft. Bowel sounds +. There is no abdominal tenderness, no guarding/rigidity no organomegaly Psych: unable MSK: no joint tenderness or swelling. Digits and nails normal, no deformity : kidney or bladder not palpable Labs/imaging reviewed. Past medical history, past surgical history, family history, social history, allergy reviewed and noted as below Family hx: no hx of CKD. Rest non-contributory Objective - Vital Signs/Intake and Output Vital Signs (last 24 hours): Temp Pulse Resp BP Pulse Ox 101.5 F H 117 H 23 137/76 98 12/24/18 11:31 12/24/18 12:00 12/24/18 12:00 12/24/18 12:00 12/24/18 12:00 Intake and Output: 12/24/18 12/24/18 06:59 18:59 Intake Total 645.0 486.8 Output Total 2260 Balance -1615.0 486.8 - Medications Medications: Current Medications Acetaminophen (Tylenol 650mg/20.3ml Solution Ud) 650 mg GT Q6 PRN PRN Reason: Temperature Last Admin: 12/24/18 10:31 Dose: 650 mg Aspirin (Aspirin Chewable) [address] [facility] Last Admin: 12/24/18 09:30 Dose: 81 mg Carvedilol (Coreg) [address] [facility] Last Admin: 12/24/18 09:30 Dose: 25 mg Enoxaparin Sodium (Lovenox) [address] [facility] Last Admin: 12/24/18 09:33 Dose: 30 mg Furosemide (Lasix) [address] [facility] Last Admin: 12/24/18 09:28 Dose: 40 mg Hydralazine HCl (Apresoline) [address] [facility] Last Admin: 12/24/18 09:30 Dose: 25 mg Hydrocortisone Sodium Succinate (Solu-Cortef) [address] [facility] Last Admin: 12/24/18 09:29 Dose: 50 mg Midazolam HCl 100 mg/ Dextrose 100 mls @ 1.42 mls/hr IV .Q24H [facility]; Protocol Last Admin: 12/24/18 04:12 Dose: Not Given Propofol (Diprivan) 1,000 mg in 100 mls @ 2.123 mls/hr IV .Q24H [facility]; Protocol PRN Reason: TITRATE PER MD ORDER Last Titration: 12/24/18 10:39 Dose: 5 mcg/kg/min, 2.123 mls/hr Dexmedetomidine HCl 200 mcg/ (Sodium Chloride) 50 mls @ 3.52 mls/hr IV TITR PRN; Protocol PRN Reason: Agitation Last Titration: 12/24/18 12:58 Dose: 0.8 mcg/kg/hr, 14.06 mls/hr Insulin Aspart (Novolog) 0 unit SC Q6H [place]; Protocol Last Admin: 12/24/18 12:37 Dose: 2 u Methimazole (Tapazole) [address] [facility] Last Admin: 12/24/18 10:31 Dose: 20 mg Nitroglycerin (Nitro-Bid 2% Oint) 1 ea TOP Q6H [place] Last Admin: 12/24/18 08:59 Dose: 1 ea Pantoprazole Sodium (Protonix Inj) [address] [facility] Last Admin: 12/24/18 09:29 Dose: 40 mg - Labs Labs: 12/24/18 06:28 12/24/18 06:27 PT 19.6 SECONDS (9.7-12.2) H 12/22/18 08:55 INR 1.8 12/22/18 08:55 APTT 32 SECONDS (21-34) D 12/23/18 06:25
--- NOTE | 2018-12-24 15:46 | CP.PCM.PN ---
Subjective - Date & Time of Evaluation Date of Evaluation: 12/24/18 - Subjective Subjective: Patient was examined today at bedside patient denies nausea, vomiting, fever, diarrhea, dizziness, shortness of breath Objective - Vital Signs/Intake and Output Vital Signs (last 24 hours): Temp Pulse Resp BP Pulse Ox 101.5 F H 121 H 25 H 141/78 98 12/24/18 12:00 12/24/18 14:00 12/24/18 14:00 12/24/18 14:00 12/24/18 14:00 Intake and Output: 12/24/18 12/24/18 06:59 18:59 Intake Total 645.0 690.5 Output Total 2260 900 Balance -1615.0 -209.5 - Medications Medications: Current Medications Acetaminophen (Tylenol 650mg/20.3ml Solution Ud) 650 mg GT Q6 PRN PRN Reason: Temperature Last Admin: 12/24/18 10:31 Dose: 650 mg Aspirin (Aspirin Chewable) 81 mg PO DAILY [facility] Last Admin: 12/24/18 09:30 Dose: 81 mg Carvedilol (Coreg) 25 mg PO BID [facility] Last Admin: 12/24/18 09:30 Dose: 25 mg Enoxaparin Sodium (Lovenox) 30 mg SC DAILY [facility] Last Admin: 12/24/18 09:33 Dose: 30 mg Furosemide (Lasix) 40 mg IVP DAILY [facility] Last Admin: 12/24/18 09:28 Dose: 40 mg Hydralazine HCl (Apresoline) 25 mg PO QID [facility] Last Admin: 12/24/18 14:43 Dose: 25 mg Hydrocortisone Sodium Succinate (Solu-Cortef) 50 mg IV Q12H [facility] Last Admin: 12/24/18 09:29 Dose: 50 mg Midazolam HCl 100 mg/ Dextrose 100 mls @ 1.42 mls/hr IV .Q24H [facility]; Protocol Last Admin: 12/24/18 04:12 Dose: Not Given Propofol (Diprivan) 1,000 mg in 100 mls @ 2.123 mls/hr IV .Q24H PRN; Protocol PRN Reason: TITRATE PER MD ORDER Last Titration: 12/24/18 13:00 Dose: 8 mcg/kg/min, 3.396 mls/hr Dexmedetomidine HCl 200 mcg/ (Sodium Chloride) 50 mls @ 3.52 mls/hr IV TITR PRN; Protocol PRN Reason: Agitation Last Admin: 12/24/18 14:45 Dose: 0.8 mcg/kg/hr, 14.06 mls/hr Insulin Aspart (Novolog) 0 unit SC Q6H [facility]; Protocol Last Admin: 12/24/18 12:37 Dose: 2 u Methimazole (Tapazole) 20 mg PO Q8H [facility] Last Admin: 12/24/18 10:31 Dose: 20 mg Nitroglycerin (Nitro-Bid 2% Oint) 1 ea TOP Q6H [facility] Last Admin: 12/24/18 14:43 Dose: 1 ea Pantoprazole Sodium (Protonix Inj) 40 mg IVP DAILY [facility] Last Admin: 12/24/18 09:29 Dose: 40 mg - Labs Labs: 12/24/18 06:28 12/24/18 06:27 PT 19.6 SECONDS (9.7-12.2) H 12/22/18 08:55 INR 1.8 12/22/18 08:55 APTT 32 SECONDS (21-34) D 12/23/18 06:25 - Constitutional Appears: Well - Head Exam Head Exam: ATRAUMATIC, NORMAL INSPECTION, NORMOCEPHALIC - Eye Exam Eye Exam: EOMI, Normal appearance, PERRL Pupil Exam: NORMAL ACCOMODATION, PERRL - ENT Exam ENT Exam: Mucous Membranes Moist, Normal Exam - Neck Exam Neck Exam: Full ROM, Normal Inspection. absent: Lymphadenopathy - Respiratory Exam Respiratory Exam: Decreased Breath Sounds - Cardiovascular Exam Cardiovascular Exam: REGULAR RHYTHM, +S1, +S2 - GI/Abdominal Exam GI & Abdominal Exam: Soft, Diminished Bowel Sounds - Rectal Exam Rectal Exam: Deferred
--- NOTE | 2018-12-24 16:07 | CP.CCUPN ---
CCU Subjective - Physician Review Subjective (Free Text): Events overnight reviewed, (+)tachy 12/24/18 16:03 Critical Care Time Spent (in minutes): 39 CCU Objective - Vital Signs / Intake & Output Vital Signs (Last 4 hours): Vital Signs Pulse Resp BP Pulse Ox 12/24/18 14:00 121 H 25 H 141/78 98 12/24/18 13:00 121 H 27 H 142/81 98 Intake and Output (Last 8hrs): Intake & Output 12/24/18 12/24/18 12/24/18 06:59 14:59 22:59 Intake Total 437.5 690.5 Output Total 1415 900 Balance -977.5 -209.5 Weight 155 lb Intake: IV 36 134 Intake, IV Amount 31.5 96.5 right AC 24.3 right hand 31.5 72.2 Tube Feeding 270 210 Other 100 250 Output: Urine 1290 900 Urethral (Perez) 1290 900 Stool 125 - Physical Exam Head: Positive for: Atraumatic, Normocephalic Pupils: Positive for: PERRL Extroacular Muscles: Positive for: EOMI. Negative for: Gaze Palsy Conjunctiva: Positive for: Normal Mouth: Positive for: Moist Mucous Membranes Neck: Positive for: Normal Range of Motion, Trachea Midline. Negative for: Meningeal Signs, MIDLINE TENDERNESS, Paraspinal Tenderness, JVD, Lymphadenopathy, Bruit, Other Respiratory/Chest: Positive for: Clear to Auscultation, Good Air Exchange, Other (currently intubated on vent). Negative for: Respiratory Distress, Accessory Muscle Use, Wheezes, Rales, Rhonchi Cardiovascular: Positive for: Normal S1, S2, Tachycardic. Negative for: Murmurs, Rub, Gallop Abdomen: Positive for: Normal Bowel Sounds. Negative for: Tenderness, Disten tion, Mass/Organomegaly Upper Extremity: Positive for: Normal Inspection, NORMAL PULSES, Neurovascularly Intact, Capillary Refill < 2s. Negative for: Cyanosis, Edema Lower Extremity: Positive for: Normal Inspection, NORMAL PULSES, Neurovascularly Intact, Capillary Refill < 2 s. Negative for: Edema Neurological: Positive for: Other (currently intubated and sedated) Skin: Positive for: Warm, Dry, Normal Color Psychiatric: Positive for: Other (intubated and sedated) - Medications Active Medications: Active Medications Generic Name Dose Route Start Last Admin Trade Name Freq PRN Reason Stop Dose Admin Acetaminophen 650 mg 12/21/18 15:53 12/24/18 10:31 Tylenol 650mg/20.3ml Solution Ud GT 650 mg Q6 PRN Administration Temperature Aspirin 81 mg 12/24/18 10:00 12/24/18 09:30 Aspirin Chewable PO 81 mg DAILY [facility] Administration Carvedilol 25 mg 12/24/18 10:00 12/24/18 09:30 Coreg PO 25 mg BID [facility] Administration Enoxaparin Sodium 30 mg 12/23/18 10:00 12/24/18 09:33 Lovenox SC 30 mg DAILY [facility] Administration Furosemide 40 mg 12/24/18 10:00 12/24/18 09:28 Lasix IVP 40 mg DAILY [facility] Administration Hydralazine HCl 25 mg 12/24/18 10:00 12/24/18 14:43 Apresoline PO 25 mg QID [facility] Administration Hydrocortisone Sodium Succinate 50 mg 12/24/18 10:00 12/24/18 09:29 Solu-Cortef IV 50 mg Q12H [facility] Administration Midazolam HCl 100 mg/ Dextrose 100 mls @ 1.42 mls/hr 12/21/18 04:30 12/24/18 04:12 IV Not Given .Q24H [facility] Protocol 0.02 MG/KG/HR Propofol 1,000 mg in 100 mls @ 2.123 mls/hr 12/21/18 07:42 12/24/18 13:00 Diprivan IV 8 mcg/kg/min .Q24H PRN 3.396 mls/hr TITRATE PER MD ORDER Titration Protocol 5 MCG/KG/MIN Dexmedetomidine HCl 200 mcg/ 50 mls @ 3.52 mls/hr 12/22/18 17:22 12/24/18 14:45 Sodium Chloride IV 0.8 mcg/kg/hr TITR PRN 14.06 mls/hr Ag[facility] Administration Protocol 0.2 MCG/KG/HR Insulin Aspart 0 unit 12/24/18 12:00 12/24/18 12:37 Novolog SC 2 u Q6H [facility] Administration Protocol Methimazole 20 mg 12/24/18 10:00 12/24/18 10:31 Tapazole PO 20 mg Q8H [facility] Administration Nitroglycerin 1 ea 12/24/18 08:30 12/24/18 14:43 Nitro-Bid 2% Oint TOP 1 ea Q6H [facility] Administration Pantoprazole Sodium 40 mg 12/21/18 10:15 12/24/18 09:29 Protonix Inj IVP 40 mg DAILY [facility] Administration - Patient Studies Lab Studies: Microbiology Studies 12/22/18 11:57 Gram Stain - Final Trachasp Sputum Culture - Final No growth. 12/22/18 11:57 Stool Culture - Final Stool NO SALMONELLA, SHIGELLA OR CAMPYLOBACTER ISOLATED. 12/21/18 08:39 Blood Culture - Preliminary Blood NO GROWTH AFTER 3 DAYS 12/21/18 08:39 Blood Culture - Preliminary Blood NO GROWTH AFTER 3 DAYS Lab Studies 12/24/18 12/24/18 12/24/18 Range/Units 06:28 06:27 06:27 WBC 9.0 (4.8-10.8) K/uL RBC 3.75 L (3.80-5.20) Mil/uL Hgb 10.9 L (11.0-16.0) g/dL Hct 33.1 L (34.0-47.0) % MCV 88.1 D (81.0-99.0) fL MCH 29.1 (27.0-31.0) pg MCHC 33.1 (33.0-37.0) g/dL RDW 14.9 H (11.5-14.5) % Plt Count 111 L (130-400) K/uL MPV 9.6 (7.2-11.7) fL Neut % (Auto) 81.2 H (50.0-75.0) % Lymph % (Auto) 11.3 L (20.0-40.0) % [place] % (Auto) 7.2 (0.0-10.0) % Eos % (Auto) 0.1 (0.0-4.0) % Baso % (Auto) 0.2 (0.0-2.0) % Neut # (Auto) 7.3 H (1.8-7.0) K/uL Lymph # (Auto) 1.0 (1.0-4.3) K/uL [place] # (Auto) 0.6 (0.0-0.8) K/uL Eos # (Auto) 0.0 (0.0-0.7) K/uL Baso # (Auto) 0.0 (0.0-0.2) K/uL Puncture Site pCO2 (35-45) mm/Hg pO2 (80-100) mm/Hg HCO3 (21-28) mmol/L ABG pH (7.35-7.45) ABG Total CO2 (22-28) mmol/L ABG O2 Saturation (95-98) % ABG Base Excess (-2.0-3.0) mmol/L ABG Hemoglobin (11.7-17.4) g/dL ABG Carboxyhemoglobin (0.5-1.5) % POC ABG HHb (Measured) (0.0-5.0) % ABG Methemoglobin (0.0-3.0) % Howard Test A-a O2 Difference mm/Hg Respiratory Index Hgb O2 Saturation (95.0-98.0) % Vent Mode Mechanical Rate FiO2 % Tidal Volume PEEP Sodium 148 (132-148) mmol/L Potassium 3.4 L (3.6-5.2) mmol/L Chloride 115 H (98-107) mmol/L Carbon Dioxide 25 (22-30) mmol/L Anion Gap 11 (10-20) BUN 39 H (7-17) mg/dL Creatinine 1.7 H (0.7-1.2) mg/dL Est GFR ( Amer) 39 Est GFR (Non-Af Amer) 32 Random Glucose 230 H (65-105) mg/dL Calcium 8.0 L (8.6-10.4) mg/dl Phosphorus 4.2 (2.5-4.5) mg/dL Magnesium 1.8 (1.6-2.3) mg/dL Total Bilirubin 1.0 (0.2-1.3) mg/dL AST 178 H D (14-36) U/L ALT 326 H D (9-52) U/L Alkaline Phosphatase 70 (38-126) U/L Total Protein 5.8 L (6.3-8.3) g/dL Albumin 2.8 L (3.5-5.0) g/dL Globulin 3.0 (2.2-3.9) gm/dL Albumin/Globulin Ratio 1.0 (1.0-2.1) Thyroxine (T4) 13.8 H (5.5-11.0) ug/dL Cortisol AM Sample 23.2 H (4.46-22.7) ug/dL Vancomycin Trough (5.0-10.0) ug/mL Thyroperoxidase Ab (<9) IU/mL Thyroglobulin Antibody (< OR = 1) IU/mL 12/24/18 12/23/18 12/22/18 Range/Units 05:10 16:30 08:00 WBC (4.8-10.8) K/uL RBC (3.80-5.20) Mil/uL Hgb (11.0-16.0) g/dL Hct (34.0-47.0) % MCV (81.0-99.0) fL MCH (27.0-31.0) pg MCHC (33.0-37.0) g/dL RDW (11.5-14.5) % Plt Count (130-400) K/uL MPV (7.2-11.7) fL Neut % (Auto) (50.0-75.0) % Lymph % (Auto) (20.0-40.0) % [place] % (Auto) (0.0-10.0) % Eos % (Auto) (0.0-4.0) % Baso % (Auto) (0.0-2.0) % Neut # (Auto) (1.8-7.0) K/uL Lymph # (Auto) (1.0-4.3) K/uL [place] # (Auto) (0.0-0.8) K/uL Eos # (Auto) (0.0-0.7) K/uL Baso # (Auto) (0.0-0.2) K/uL Puncture Site Rr pCO2 40 (35-45) mm/Hg pO2 142 H (80-100) mm/Hg HCO3 27.7 (21-28) mmol/L ABG pH 7.45 (7.35-7.45) ABG Total CO2 29.0 H (22-28) mmol/L ABG O2 Saturation 99.6 H (95-98) % ABG Base Excess 3.5 H (-2.0-3.0) mmol/L ABG Hemoglobin 10.3 L (11.7-17.4) g/dL ABG Carboxyhemoglobin 1.8 H (0.5-1.5) % POC ABG HHb (Measured) 0.4 (0.0-5.0) % ABG Methemoglobin 1.2 (0.0-3.0) % Howard Test Pos A-a O2 Difference 93.0 mm/Hg Respiratory Index 0.7 Hgb O2 Saturation 96.7 (95.0-98.0) % Vent Mode Prvc Mechanical Rate 22 FiO2 40.0 % Tidal Volume 400 PEEP 5 Sodium (132-148) mmol/L Potassium (3.6-5.2) mmol/L Chloride (98-107) mmol/L Carbon Dioxide (22-30) mmol/L Anion Gap (10-20) BUN (7-17) mg/dL Creatinine (0.7-1.2) mg/dL Est GFR ( Amer) Est GFR (Non-Af Amer) Random Glucose (65-105) mg/dL Calcium (8.6-10.4) mg/dl Phosphorus (2.5-4.5) mg/dL Magnesium (1.6-2.3) mg/dL Total Bilirubin (0.2-1.3) mg/dL AST (14-36) U/L ALT (9-52) U/L Alkaline Phosphatase (38-126) U/L Total Protein (6.3-8.3) g/dL Albumin (3.5-5.0) g/dL Globulin (2.2-3.9) gm/dL Albumin/Globulin Ratio (1.0-2.1) Thyroxine (T4) (5.5-11.0) ug/dL Cortisol AM Sample (4.46-22.7) ug/dL Vancomycin Trough 36.7 H (5.0-10.0) ug/mL Thyroperoxidase Ab >900 H (<9) IU/mL Thyroglobulin Antibody <1 (< OR = 1) IU/mL Laboratory Results - last 24 hr 12/22/18 12/23/18 12/24/18 08:00 16:30 05:10 WBC RBC Hgb Hct MCV MCH MCHC RDW Plt Count MPV Neut % (Auto) Lymph % (Auto) [place] % (Auto) Eos % (Auto) Baso % (Auto) Neut # (Auto) Lymph # (Auto) [place] # (Auto) Eos # (Auto) Baso # (Auto) Puncture Site Rr pCO2 40 pO2 142 H HCO3 27.7 ABG pH 7.45 ABG Total CO2 29.0 H ABG O2 Saturation 99.6 H ABG Base Excess 3.5 H ABG Hemoglobin 10.3 L ABG Carboxyhemoglobin 1.8 H POC ABG HHb (Measured) 0.4 ABG Methemoglobin 1.2 Howard Test Pos A-a O2 Difference 93.0 Respiratory Index 0.7 Hgb O2 Saturation 96.7 Vent Mode Prvc Mechanical Rate 22 FiO2 40.0 Tidal Volume 400 PEEP 5 Sodium Potassium Chloride Carbon Dioxide Anion Gap BUN Creatinine Est GFR ( Amer) Est GFR (Non-Af Amer) Random Glucose Calcium Phosphorus Magnesium Total Bilirubin AST ALT Alkaline Phosphatase Total Protein Albumin Globulin Albumin/Globulin Ratio Thyroxine (T4) Cortisol AM Sample Vancomycin Trough 36.7 H Thyroperoxidase Ab >900 H Thyroglobulin Antibody <1 12/24/18 12/24/18 12/24/18 06:27 06:27 06:28 WBC 9.0 RBC 3.75 L Hgb 10.9 L Hct 33.1 L MCV 88.1 D MCH 29.1 MCHC 33.1 RDW 14.9 H Plt Count 111 L MPV 9.6 Neut % (Auto) 81.2 H Lymph % (Auto) 11.3 L [place] % (Auto) 7.2 Eos % (Auto) 0.1 Baso % (Auto) 0.2 Neut # (Auto) 7.3 H Lymph # (Auto) 1.0 [place] # (Auto) 0.6 Eos # (Auto) 0.0 Baso # (Auto) 0.0 Puncture Site pCO2 pO2 HCO3 ABG pH ABG Total CO2 ABG O2 Saturation ABG Base Excess ABG Hemoglobin ABG Carboxyhemoglobin POC ABG HHb (Measured) ABG Methemoglobin Howard Test A-a O2 Difference Respiratory Index Hgb O2 Saturation Vent Mode Mechanical Rate FiO2 Tidal Volume PEEP Sodium 148 Potassium 3.4 L Chloride 115 H Carbon Dioxide 25 Anion Gap 11 BUN 39 H Creatinine 1.7 H Est GFR ( Amer) 39 Est GFR (Non-Af Amer) 32 Random Glucose 230 H Calcium 8.0 L Phosphorus 4.2 Magnesium 1.8 Total Bilirubin 1.0 AST 178 H D ALT 326 H D Alkaline Phosphatase 70 Total Protein 5.8 L Albumin 2.8 L Globulin 3.0 Albumin/Globulin Ratio 1.0 Thyroxine (T4) 13.8 H Cortisol AM Sample 23.2 H Vancomycin Trough Thyroperoxidase Ab Thyroglobulin Antibody Radiology Impressions: Radiology Impressions Chest X-Ray 12/24/18 07:09 IMPRESSION: Opacity at medial right base. Possible pneumonia versus atelectasis. Follow-up advised. Lines and tubes unchanged. EKG/Cardiology Studies: Cardiology / EKG Studies 12/24/18 08:27 EKG [ELECTROCARDIOGRAM] Stat Comment: Mode Of Transportation: Reason For Exam: CAD/s/p code Fingerstick Blood Sugar Results: 216 Review of Systems - Review of Systems Systems not reviewed;Unavailable: Intubated Assessment/Plan - Assessment and Plan (Free Text) Assessment: 48 y o female PMhx HTN, hyperthyroidism, TIA, anxiety, asthma, Grave's disease, who presented to the ED overnight with c/o severe abd pain, n/v. PAtient had prolonged ICU course with cardiac arrest s/p CPR. -Anoxic brain injury: not responsive, neurology input regarding progostication of neurological function, pending EEG -Hypertensive/tachycardic: possibel 2nd hyperthyroidism, with low EF, use core, hold propanolol -Hypoxic respiratoy failure:continue ventilattion to keep spo2 >92 and pH b/w 7.35-7.45 -Hypernatremia: 2nd lasix -aspiration: continue empirical abx, de-escalate as per sensitivity -at risk of cad: continue -Hyperthyroidism: continue methimazole, continue treatment as per endocrinology, continue hydrocortisone -continue to monitor urine output -continue dvt/pud ppx cc time 45 minutes - Date & Time Date: 12/24/18 Time: 16:08
[2018-12-24] MEDS: Meropenem 500 MG in Sodium Chloride 0.9% 100 ML IVPB SCH (18:16)
[2018-12-25] MEDS: Meropenem 500 MG in Sodium Chloride 0.9% 100 ML IVPB SCH ×3 (01:35→17:07)
[2018-12-25] MEDS: (Novolog) Insulin Aspart, Recombinant 100 u/ml 10 ml vial SC SCH ×4 (01:35→17:52)
[2018-12-25] MEDS: Nitroglycerin 2% Ointment Foilpak UD TOP SCH ×2 (01:40→08:04)
[2018-12-25] MEDS: Dexmedetomidine Hydrochloride 200 MCG in Sodium Chloride 0.9% 48 ML IV PRN ×5 (03:36→22:43)
[2018-12-25] MEDS: Midazolam 50 mg/10 ml 100 MG in Dextrose 5% In Water 80 ML IV SCH (03:37)
[2018-12-25 05:51] LABS: ABG ALLEN TEST POS; ARTERIAL BLOOD GAS HCO3 29.1 mmol/L (21-28); ARTERIAL BLOOD GAS HEMOGLOBIN 10.1 g/dL (11.7-17.4); ARTERIAL BLOOD GAS O2 SAT 99.4 % (95-98); ARTERIAL BLOOD GAS PCO2 38 mm/Hg (35-45); ARTERIAL BLOOD GAS PH 7.49 (7.35-7.45); ARTERIAL BLOOD GAS PO2 103 mm/Hg (80-100); ARTERIAL BLOOD GAS TCO2 30.2 mmol/L (22-28)
[2018-12-25 06:19] LABS: BASO % 0.1 % (0.0-2.0); EOS % 0.1 % (0.0-4.0); HEMOGLOBIN 10.6 g/dL (11.0-16.0); LYMPH # 1.4 K/uL (1.0-4.3); LYMPH % 18.2 % (20.0-40.0); MEAN CELL VOLUME 87.9 fL (81.0-99.0); MEAN CORPUSCULAR HEMOGLOBIN 28.9 pg (27.0-31.0); MEAN CORPUSCULAR HGB CONC 32.9 g/dL (33.0-37.0); MEAN PLATELET VOLUME 9.6 fL (7.2-11.7); MONO # 0.6 K/uL (0.0-0.8); MONO % 8.5 % (0.0-10.0); NEUT # 5.5 K/uL (1.8-7.0); NEUT % 73.1 % (50.0-75.0); RBC 3.68 Mil/uL (3.80-5.20); RED CELL DISTRIBUTION WIDTH 14.8 % (11.5-14.5); WHITE BLOOD COUNT 7.6 K/uL (4.8-10.8)
[2018-12-25 06:38] LABS: ALB/GLOB RATIO 0.9 (1.0-2.1); ALBUMIN 2.7 g/dL (3.5-5.0)
[2018-12-25] MEDS: Enoxaparin 30 mg Syringe SC SCH (09:23)
[2018-12-25] MEDS ORDERED: Lactated Ringer's 1,000 ML IV ONE ×2 (10:12→14:18)
[2018-12-25] MEDS: Potassium Chloride 20 mEq/15 ml LIQ UD PO SCH ×2 (10:39→16:31)
[2018-12-25] MEDS: Magnesium Sulfate 1 gm in D5W 1 GM/100 ML BAG IVPB SCH ×2 (11:10→11:38)
--- NOTE | 2018-12-25 12:29 | CP.PCM.PN ---
Subjective - Date & Time of Evaluation Date of Evaluation: 12/25/18 Time of Evaluation: 12:28 - Subjective Subjective: Nephrology Consultation Note: Assessment: Stable Non-oliguric Acute Kidney Injury (N17.9) likely due to renal hypoperfusion due to cardiac arrest/hypotension leading to ATN, had exposure to IV contrast in addition uncontrolled severe HTN hypokalemia, , HAGMA/lactic acidosis hypertension (years) obesity hyperthyroidism thyroid storm, cardiac arrest s/p resuscitation BiV failure with LVEF 15%, sepsis hypernatremia Plan Renal function slowly improving bp improving Monitor Input/Output, daily weights and renal function with basic metabolic panel discussed w/ wire repairer- start free water flush k to be repleted endocrine and cardiology following s: seen and examined intubated and sedated Physical Examination: General Appearance: Comfortable, in no acute respiratory distress, ill appearing intubated sedated Vitals reviewed and noted as below Head; Atraumatic, normocephalic ENT: no ulcers no thrush. Tongue is midline. Oropharynx: no rash or ulcers. EYES: Pupils are equal, round and sluggish to light accommodation. Eye muscles and extraocular movement intact. Sclera is anicteric. Neck; supple no lymphadenopathy, gross thyromegaly noted Lungs: Normal respiratory rate/effort. Breath sounds reduced at bases Heart:tachy. s1s2 normal. No rub or gallop. Extremities: no edema. No varicose veins Neurological: Patient is sedated Skin: Warm and dry. Normal turgor. No rash. Palpitation: Normal elasticity for age Abdomen: Abdomen is soft. Bowel sounds +. There is no abdominal tenderness, no guarding/rigidity no organomegaly Psych: unable MSK: no joint tenderness or swelling. Digits and nails normal, no deformity : kidney or bladder not palpable Labs/imaging reviewed. Past medical history, past surgical history, family history, social history, allergy reviewed and noted as below Family hx: no hx of CKD. Rest non-contributory Objective - Vital Signs/Intake and Output Vital Signs (last 24 hours): Temp Pulse Resp BP Pulse Ox 97.7 F 123 H 20 143/91 H 99 12/25/18 08:00 12/25/18 11:15 12/25/18 11:15 12/25/18 11:15 12/25/18 11:15 Intake and Output: 12/25/18 12/25/18 06:59 18:59 Intake Total 807.7 1550.8 Output Total 2850 305 Balance -2042.3 1245.8 - Medications Medications: Current Medications Acetaminophen (Tylenol 650mg/20.3ml Solution Ud) 650 mg GT Q6 PRN PRN Reason: Temperature Last Admin: 12/24/18 10:31 Dose: 650 mg Aspirin (Aspirin Chewable) 81 mg PO DAILY [facility] Last Admin: 12/25/18 09:22 Dose: 81 mg Carvedilol (Coreg) 25 mg PO BID [facility] Last Admin: 12/25/18 10:38 Dose: 25 mg Enoxaparin Sodium (Lovenox) 30 mg SC DAILY [facility] Last Admin: 12/25/18 09:23 Dose: 30 mg Hydrocortisone Sodium Succinate (Solu-Cortef) 50 mg IV Q12H [facility] Last Admin: 12/25/18 09:24 Dose: 50 mg Dexmedetomidine HCl 200 mcg/ (Sodium Chloride) 50 mls @ 3.52 mls/hr IV TITR PRN; Protocol PRN Reason: Agitation Last Admin: 12/25/18 11:35 Dose: 0.6 mcg/kg/hr, 10.55 mls/hr Meropenem 500 mg/ Sodium (Chloride) 100 mls @ 100 mls/hr IVPB Q8H [facility]; Protocol Last Admin: 12/25/18 10:31 Dose: 100 mls/hr Potassium Chloride (Potassium Chloride 10 Meq/100 Ml) 10 meq in 100 mls @ 100 mls/hr IVPB Q1H [facility] Stop: 12/25/18 12:29 Last Admin: 12/25/18 10:59 Dose: 100 mls/hr Insulin Aspart (Novolog) 0 unit SC Q6H [facility]; Protocol Last Admin: 12/25/18 12:20 Dose: 1 u Methimazole (Tapazole) 20 mg PO Q8H [facility] Last Admin: 12/25/18 09:22 Dose: 20 mg Pantoprazole Sodium (Protonix Inj) 40 mg IVP DAILY [facility] Last Admin: 12/25/18 09:24 Dose: 40 mg Potassium Chloride (Potassium Chloride Oral Soln) 20 meq PO Q6H [facility] Stop: 12/25/18 16:16 Last Admin: 12/25/18 10:39 Dose: 20 meq Verapamil HCl (Calan Tab) 40 mg PO Q8H [facility] - Labs Labs: 12/25/18 06:13 12/25/18 06:11 PT 19.6 SECONDS (9.7-12.2) H 12/22/18 08:55 INR 1.8 12/22/18 08:55 APTT 32 SECONDS (21-34) D 12/23/18 06:25
--- NOTE | 2018-12-25 13:01 | CP.PCM.PN ---
Subjective - Date & Time of Evaluation Date of Evaluation: 12/25/18 Time of Evaluation: 12:58 - Subjective Subjective: Afebrile overnight, BP low, hold nitro and hydralazine, tolerating CPAP Objective - Vital Signs/Intake and Output Vital Signs (last 24 hours): Temp Pulse Resp BP Pulse Ox 97.7 F 123 H 20 143/91 H 99 12/25/18 08:00 12/25/18 11:15 12/25/18 11:15 12/25/18 11:15 12/25/18 11:15 Intake and Output: 12/25/18 12/25/18 06:59 18:59 Intake Total 807.7 1550.8 Output Total 2850 305 Balance -2042.3 1245.8 - Medications Medications: Current Medications Acetaminophen (Tylenol 650mg/20.3ml Solution Ud) 650 mg GT Q6 PRN PRN Reason: Temperature Last Admin: 12/24/18 10:31 Dose: 650 mg Aspirin (Aspirin Chewable) 81 mg PO DAILY [facility] Last Admin: 12/25/18 09:22 Dose: 81 mg Carvedilol (Coreg) 25 mg PO BID [facility] Last Admin: 12/25/18 10:38 Dose: 25 mg Enoxaparin Sodium (Lovenox) 30 mg SC DAILY [facility] Last Admin: 12/25/18 09:23 Dose: 30 mg Hydrocortisone Sodium Succinate (Solu-Cortef) 50 mg IV Q12H [facility] Last Admin: 12/25/18 09:24 Dose: 50 mg Dexmedetomidine HCl 200 mcg/ (Sodium Chloride) 50 mls @ 3.52 mls/hr IV TITR PRN; Protocol PRN Reason: Agitation Last Admin: 12/25/18 11:35 Dose: 0.6 mcg/kg/hr, 10.55 mls/hr Meropenem 500 mg/ Sodium (Chloride) 100 mls @ 100 mls/hr IVPB Q8H [facility]; Protocol Last Admin: 12/25/18 10:31 Dose: 100 mls/hr Insulin Aspart (Novolog) 0 unit SC Q6H [facility]; Protocol Last Admin: 12/25/18 12:20 Dose: 1 u Methimazole (Tapazole) 20 mg PO Q8H [facility] Last Admin: 12/25/18 09:22 Dose: 20 mg Pantoprazole Sodium (Protonix Inj) 40 mg IVP DAILY [facility] Last Admin: 12/25/18 09:24 Dose: 40 mg Potassium Chloride (Potassium Chloride Oral Soln) 20 meq PO Q6H [facility] Stop: 12/25/18 16:16 Last Admin: 12/25/18 10:39 Dose: 20 meq Verapamil HCl (Calan Tab) 40 mg PO Q8H [facility] Last Admin: 12/25/18 12:29 Dose: 40 mg - Labs Labs: 12/25/18 06:13 12/25/18 06:11 PT 19.6 SECONDS (9.7-12.2) H 12/22/18 08:55 INR 1.8 12/22/18 08:55 APTT 32 SECONDS (21-34) D 12/23/18 06:25 - Head Exam Head Exam: ATRAUMATIC, NORMAL INSPECTION - Eye Exam Eye Exam: Normal appearance. absent: Periorbital swelling, PERRL Pupil Exam: Miosis - ENT Exam ENT Exam: Mucous Membranes Moist - Respiratory Exam Respiratory Exam: Clear to Ausculation Bilateral, NORMAL BREATHING PATTERN. absent: Rales, Respiratory Distress, Stridor - Cardiovascular Exam Cardiovascular Exam: Tachycardia, +S1, +S2 - GI/Abdominal Exam GI & Abdominal Exam: Soft, Normal Bowel Sounds. absent: Tenderness, Diminished Bowel Sounds, Hyperactive Bowel Sounds, Hypoactive Bowel Sounds - Extremities Exam Extremities Exam: Normal Capillary Refill, Normal Inspection - Neurological Exam Neurological Exam: Altered Neuro motor strength exam: Left Upper Extremity: 4, Right Upper Extremity: 4, Left Lower Extremity: 4, Right Lower Extremity: 4 - Skin Skin Exam: Normal Color, Warm Assessment and Plan - Assessment and Plan (Free Text) Assessment: 48 y o female PMhx HTN, hyperthyroidism, TIA, anxiety, asthma, Grave's disease, who presented to the ED overnight with c/o severe abd pain, n/v. PAtient had prolonged ICU course post cardiac arrest s/p CPR. -Anoxic brain injury: not responsive, neurology input regarding progostication of neurological function, pending EEG -Hypertensive/tachycardic:BP better, d/c hydralazine and nitro, continue coreg -Hypoxic respiratoy failure:continue ventilatory support, CPAP todayt, Fio2 30% -Sepsis: lactic normalizeing, empirically on abx, awaiting culture results -aspiration: continue empirical abx, de-escalate as per sensitivity -Hypernetramie: d/c lasix, free water orally (1 liter/day) -at risk of cad: continue asa + statin -Hyperthyroidism: continue methimazole, continue treatment as per endocrinology, continue hydrocortisone -continue to monitor urine output -continue dvt/pud ppx -I have discussed goals of care and further trach and peg, allowing brain to recover. Family (2 sisters and 1 brother with father) at bedside, informed of current condition. Agree with trach and peg, consult surgery and Gi
--- NOTE | 2018-12-25 13:02 | RAD ---
Date of service: 12/25/2018 HISTORY: vented COMPARISON: 12/24/2018 TECHNIQUE: 1 view obtained. FINDINGS: LUNGS: No active pulmonary disease. PLEURA: Small left pleural effusion. No right pleural effusion. No pneumothorax. CARDIOVASCULAR: No aortic atherosclerotic calcification present. Normal cardiac size. ET tube and NG tube unchanged. OSSEOUS STRUCTURES: No significant abnormalities. VISUALIZED UPPER ABDOMEN: Normal. OTHER FINDINGS: None. IMPRESSION: Small left pleural effusion.
--- NOTE | 2018-12-25 13:21 | CP.PCM.PN ---
Subjective - Date & Time of Evaluation Date of Evaluation: 12/25/18 Time of Evaluation: 13:20 - Subjective Subjective: Critically Ill Objective - Vital Signs/Intake and Output Vital Signs (last 24 hours): Temp Pulse Resp BP Pulse Ox 99.3 F 105 H 17 95/58 L 98 12/25/18 12:00 12/25/18 13:00 12/25/18 13:00 12/25/18 13:00 12/25/18 13:00 Intake and Output: 12/25/18 12/25/18 06:59 18:59 Intake Total 807.7 1791.3 Output Total 2850 370 Balance -2042.3 1421.3 - Medications Medications: Current Medications Acetaminophen (Tylenol 650mg/20.3ml Solution Ud) 650 mg GT Q6 PRN PRN Reason: Temperature Last Admin: 12/24/18 10:31 Dose: 650 mg Aspirin (Aspirin Chewable) 81 mg PO DAILY [facility] Last Admin: 12/25/18 09:22 Dose: 81 mg Carvedilol (Coreg) 25 mg PO BID [facility] Last Admin: 12/25/18 10:38 Dose: 25 mg Enoxaparin Sodium (Lovenox) 30 mg SC DAILY [facility] Last Admin: 12/25/18 09:23 Dose: 30 mg Hydrocortisone Sodium Succinate (Solu-Cortef) 50 mg IV Q12H [facility] Last Admin: 12/25/18 09:24 Dose: 50 mg Dexmedetomidine HCl 200 mcg/ (Sodium Chloride) 50 mls @ 3.52 mls/hr IV TITR PRN; Protocol PRN Reason: Agitation Last Admin: 12/25/18 11:35 Dose: 0.6 mcg/kg/hr, 10.55 mls/hr Meropenem 500 mg/ Sodium (Chloride) 100 mls @ 100 mls/hr IVPB Q8H [facility]; Protocol Last Admin: 12/25/18 10:31 Dose: 100 mls/hr Insulin Aspart (Novolog) 0 unit SC Q6H [facility]; Protocol Last Admin: 12/25/18 12:20 Dose: 1 u Methimazole (Tapazole) 20 mg PO Q8H [facility] Last Admin: 12/25/18 09:22 Dose: 20 mg Pantoprazole Sodium (Protonix Inj) 40 mg IVP DAILY [facility] Last Admin: 12/25/18 09:24 Dose: 40 mg Potassium Chloride (Potassium Chloride Oral Soln) 20 meq PO Q6H [facility] Stop: 12/25/18 16:16 Last Admin: 12/25/18 10:39 Dose: 20 meq Rosuvastatin Calcium (Crestor) 10 mg PO HS [facility] Verapamil HCl (Calan Tab) 40 mg PO Q8H [facility] Last Admin: 12/25/18 12:29 Dose: 40 mg - Labs Labs: 12/25/18 06:13 12/25/18 06:11 PT 19.6 SECONDS (9.7-12.2) H 12/22/18 08:55 INR 1.8 12/22/18 08:55 APTT 32 SECONDS (21-34) D 12/23/18 06:25 - Respiratory Exam Respiratory Exam: Decreased Breath Sounds, Wheezes - Cardiovascular Exam Cardiovascular Exam: REGULAR RHYTHM, RRR, +S1, +S2. absent: JVD - GI/Abdominal Exam GI & Abdominal Exam: Normal Bowel Sounds. absent: Organomegaly - Extremities Exam Extremities Exam: absent: Pedal Edema Assessment and Plan - Assessment and Plan (Free Text) Assessment: 48 year old female with respirtory failure on ventilator on FiO2 30% Severe biventricular failure currently euvolemic, Continue coreg Hypovolemic shock receiving IV fluids, monitor Central venous pressure and maintain >10 if hypotension become refractory to fluid then add levophed Consider central access and measure central venous gas O2 saturation to estimate cardiac output Hyperthyroid on tapazol and beta blockers Cardiac arrest difficult to determine due to multifactorial etiology, no evidence of Vtach/Vfib in 24 hours Critical care time 33 minutes.
--- NOTE | 2018-12-25 13:57 | PN ---
DATE: 12/25/2018 LOCATION: Room 18, ICU. SUBJECTIVE: This is a 48-year-old female with recent overt thyrotoxicosis, currently remaining endotracheally intubated and sedated and is now being followed closely for metabolic management. She remains tachycardic with a pulse rate always in the range of 120 to 130 beats per minute and with improving blood pressure levels as noted. She remains biochemically hyperthyroxinemic that has improved remarkably with high dose medical therapy as given and this has actually been tapered down yesterday as noted. Her repeat chemistries showed a BUN of 51, sodium 151, potassium 3.2, chloride 118, CO2 of 29, glucose 173, and creatinine 1.6. Her liver transaminases are improving as noted otherwise. The last thyroxine or T4 level is 13.8 with TSH of less than 0.02 and a serum cortisol level of 23.2 mcg/dL. So, at this time, we will taper down the Tapazole given as 20 mg every 8 hours as ordered. We will also taper down the hydrocortisone to 50 mg IV every 12 hours as ordered. We will repeat the chemistries and supplement accordingly as needed and the patient actually has evidence of prerenal azotemia and dehydration as noted. We will obtain serial thyroid studies and adjust her dose regimen accordingly. We will follow. Linda Weaver MD
--- NOTE | 2018-12-25 14:58 | CP.PCM.CON ---
History of Present Illness - History of Present Illness History of Present Illness: SURGERY CONSULT NOTE FOR DR. MOHAN 48F currently in ICU with ventilator dependent respiratory distress. Patient has a hx of Graves disease, TIA and anxiety. She underwent 3 cardiac arrest during this admission. Patient currently on PRVC with fio2-30% and PEEP-5. PMH: HTN, Hyperthyroid, TIA, Anxiety PSH: None per chart Past Patient History - Infectious Disease Hx of Infectious Diseases: None - Past Medical History & Family History Past Medical History?: Yes - Past Social History Smoking Status: Never Smoked - CARDIAC Hx Cardiac Disorders: Yes Hx Hypertension: Yes - PULMONARY Hx Respiratory Disorders: Yes Hx Asthma: Yes - NEUROLOGICAL Hx Neurological Disorder: No - HEENT Hx HEENT Problems: Yes Other/Comment: uses glasses for reading - RENAL Hx Chronic Kidney Disease: No - ENDOCRINE/METABOLIC Hx Endocrine Disorders: Yes Hx Hyperthyroidism: Yes Hx Hypothyroidism: Yes - HEMATOLOGICAL/ONCOLOGICAL Hx Blood Disorders: No - INTEGUMENTARY Hx Dermatological Problems: No - MUSCULOSKELETAL/RHEUMATOLOGICAL Hx Musculoskeletal Disorders: Yes Hx Falls: Yes - GASTROINTESTINAL Hx Gastrointestinal Disorders: No - GENITOURINARY/GYNECOLOGICAL Hx Genitourinary Disorders: No - PSYCHIATRIC Hx Psychophysiologic Disorder: Yes Hx Anxiety: Yes - SURGICAL HISTORY Hx Surgeries: No - ANESTHESIA Hx Anesthesia: No Hx Anesthesia Reactions: No Hx Malignant Hyperthermia: No Has any member of the family had a problem w/ anesthesia?: No Meds Allergies/Adverse Reactions: Allergies Allergy/AdvReac Type Severity Reaction Status Date / Time No Known Allergies Allergy Verified 04/16/16 12:57 - Medications Medications: Current Medications Acetaminophen (Tylenol 650mg/20.3ml Solution Ud) 650 mg GT Q6 PRN PRN Reason: Temperature Last Admin: 12/24/18 10:31 Dose: 650 mg Aspirin (Aspirin Chewable) 81 mg PO DAILY [facility] Last Admin: 12/25/18 09:22 Dose: 81 mg Carvedilol (Coreg) 25 mg PO BID [facility] Last Admin: 12/25/18 10:38 Dose: 25 mg Enoxaparin Sodium (Lovenox) 30 mg SC DAILY [facility] Last Admin: 12/25/18 09:23 Dose: 30 mg Hydrocortisone Sodium Succinate (Solu-Cortef) 50 mg IV Q12H [facility] Last Admin: 12/25/18 09:24 Dose: 50 mg Dexmedetomidine HCl 200 mcg/ (Sodium Chloride) 50 mls @ 3.52 mls/hr IV TITR [facility]; Protocol PRN Reason: Agitation Last Titration: 12/25/18 13:45 Dose: 0 mcg/kg/hr, 0 mls/hr Meropenem 500 mg/ Sodium (Chloride) 100 mls @ 100 mls/hr IVPB Q8H [facility]; Protocol Last Admin: 12/25/18 10:31 Dose: 100 mls/hr Lactated Ringer's (Lactated Ringer's) 1,000 mls @ 1,000 mls/hr IV .Q1H [facility] Stop: 12/25/18 15:17 Insulin Aspart (Novolog) 0 unit SC Q6H [facility]; Protocol Last Admin: 12/25/18 12:20 Dose: 1 u Methimazole (Tapazole) 20 mg PO Q8H [facility] Last Admin: 12/25/18 09:22 Dose: 20 mg Pantoprazole Sodium (Protonix Inj) 40 mg IVP DAILY [facility] Last Admin: 12/25/18 09:24 Dose: 40 mg Potassium Chloride (Potassium Chloride Oral Soln) 20 meq PO Q6H [facility] Stop: 12/25/18 16:16 Last Admin: 12/25/18 10:39 Dose: 20 meq Rosuvastatin Calcium (Crestor) 10 mg PO HS [facility] Verapamil HCl (Calan Tab) 40 mg PO Q8H [facility] Last Admin: 12/25/18 12:29 Dose: 40 mg Physical Exam - Constitutional Additional comments: intubated - Neck Exam Additional comments: no mass - Respiratory Exam Additional comments: intubated - Cardiovascular Exam Cardiovascular Exam: REGULAR RHYTHM, +S1, +S2 - GI/Abdominal Exam GI & Abdominal Exam: Soft. absent: Distended, Firm, Guarding, Rebound, Rigid, Tenderness - Extremities Exam Extremities exam: Negative for: pedal edema, tenderness - Neurological Exam Additional comments: intubated, low GCS - Skin Skin Exam: Dry, Erythema, Normal Color, Warm Results - Vital Signs Recent Vital Signs: Last Vital Signs Temp 99.3 F 12/25/18 12:00 Pulse 94 H 12/25/18 14:03 Resp 20 12/25/18 14:03 BP 69/27 L 12/25/18 14:03 Pulse Ox 99 12/25/18 14:03 - Labs Result Diagrams: 12/25/18 06:13 12/25/18 06:11 Labs: Laboratory Results - last 24 hr 12/24/18 12/24/18 12/25/18 17:54 17:57 05:30 WBC RBC Hgb Hct MCV MCH MCHC RDW Plt Count MPV Neut % (Auto) Lymph % (Auto) [place] % (Auto) Eos % (Auto) Baso % (Auto) Neut # (Auto) Lymph # (Auto) [place] # (Auto) Eos # (Auto) Baso # (Auto) Puncture Site R rad pCO2 38 pO2 103 H HCO3 29.1 H ABG pH 7.49 H ABG Total CO2 30.2 H ABG O2 Saturation 99.4 H ABG Base Excess 5.3 H ABG Hemoglobin 10.1 L ABG Carboxyhemoglobin 2.3 H POC ABG HHb (Measured) 0.6 ABG Methemoglobin 1.1 Howard Test Pos A-a O2 Difference 63.0 Respiratory Index 0.6 Hgb O2 Saturation 96.0 Vent Mode Prvc Mechanical Rate 20 FiO2 30.0 Tidal Volume 400 PEEP 5 Sodium Potassium Chloride Carbon Dioxide Anion Gap BUN Creatinine Est GFR ( Amer) Est GFR (Non-Af Amer) Random Glucose Calcium Phosphorus Magnesium Total Bilirubin AST ALT Alkaline Phosphatase Total Protein Albumin Globulin Albumin/Globulin Ratio Vancomycin Trough Random Vancomycin Influenza Typ A,B (EIA) Negative for flu a/b Ur L.pneumophila Ag Negative 12/25/18 12/25/18 12/25/18 06:11 06:11 06:13 WBC 7.6 RBC 3.68 L Hgb 10.6 L Hct 32.3 L MCV 87.9 MCH 28.9 MCHC 32.9 L RDW 14.8 H Plt Count 102 L MPV 9.6 Neut % (Auto) 73.1 Lymph % (Auto) 18.2 L [place] % (Auto) 8.5 Eos % (Auto) 0.1 Baso % (Auto) 0.1 Neut # (Auto) 5.5 Lymph # (Auto) 1.4 [place] # (Auto) 0.6 Eos # (Auto) 0.0 Baso # (Auto) 0.0 Puncture Site pCO2 pO2 HCO3 ABG pH ABG Total CO2 ABG O2 Saturation ABG Base Excess ABG Hemoglobin ABG Carboxyhemoglobin POC ABG HHb (Measured) ABG Methemoglobin Howard Test A-a O2 Difference Respiratory Index Hgb O2 Saturation Vent Mode Mechanical Rate FiO2 Tidal Volume PEEP Sodium 151 H Potassium 3.2 L Chloride 118 H Carbon Dioxide 29 Anion Gap 7 L BUN 51 H Creatinine 1.6 H Est GFR ( Amer) 41 Est GFR (Non-Af Amer) 34 Random Glucose 173 H D Calcium 8.0 L Phosphorus 4.2 Magnesium 1.7 Total Bilirubin 0.9 AST 75 H D ALT 198 H D Alkaline Phosphatase 63 Total Protein 5.7 L Albumin 2.7 L Globulin 3.0 Albumin/Globulin Ratio 0.9 L Vancomycin Trough Cancelled Random Vancomycin 14.5 Influenza Typ A,B (EIA) Ur L.pneumophila Ag Assessment & Plan - Assessment and Plan (Free Text) Assessment: 48F with ventilator dependent respiratory distress Plan: Plan for Tracheostomy Tomorrow Discussed with Dr. Bhavana Mitchell, PGY3
--- NOTE | 2018-12-25 15:54 | CP.PCM.PN ---
Subjective - Date & Time of Evaluation Date of Evaluation: 12/25/18 - Subjective Subjective: Patient was examined today at bedside patient denies nausea, vomiting, fever, diarrhea, dizziness, shortness of breath Objective - Vital Signs/Intake and Output Vital Signs (last 24 hours): Temp Pulse Resp BP Pulse Ox 99.3 F 88 20 120/70 98 12/25/18 12:00 12/25/18 15:36 12/25/18 15:36 12/25/18 15:36 12/25/18 15:36 Intake and Output: 12/25/18 12/25/18 06:59 18:59 Intake Total 807.7 2881.3 Output Total 2850 465 Balance -2042.3 2416.3 - Medications Medications: Current Medications Acetaminophen (Tylenol 650mg/20.3ml Solution Ud) 650 mg GT Q6 PRN PRN Reason: Temperature Last Admin: 12/24/18 10:31 Dose: 650 mg Aspirin (Aspirin Chewable) 81 mg PO DAILY [facility] Last Admin: 12/25/18 09:22 Dose: 81 mg Carvedilol (Coreg) 25 mg PO BID [facility] Last Admin: 12/25/18 10:38 Dose: 25 mg Enoxaparin Sodium (Lovenox) 30 mg SC DAILY [facility] Last Admin: 12/25/18 09:23 Dose: 30 mg Hydrocortisone Sodium Succinate (Solu-Cortef) 50 mg IV Q12H [facility] Last Admin: 12/25/18 09:24 Dose: 50 mg Meropenem 500 mg/ Sodium (Chloride) 100 mls @ 100 mls/hr IVPB Q8H [facility]; Protocol Last Admin: 12/25/18 10:31 Dose: 100 mls/hr Insulin Aspart (Novolog) 0 unit SC Q6H [facility]; Protocol Last Admin: 12/25/18 12:20 Dose: 1 u Methimazole (Tapazole) 20 mg PO Q8H [facility] Last Admin: 12/25/18 09:22 Dose: 20 mg Pantoprazole Sodium (Protonix Inj) 40 mg IVP DAILY [facility] Last Admin: 12/25/18 09:24 Dose: 40 mg Potassium Chloride (Potassium Chloride Oral Soln) 20 meq PO Q6H [facility] Stop: 12/25/18 16:16 Last Admin: 12/25/18 10:39 Dose: 20 meq Rosuvastatin Calcium (Crestor) 10 mg PO HS [facility] Verapamil HCl (Calan Tab) 40 mg PO Q12H [facility] - Labs Labs: 12/25/18 06:13 12/25/18 06:11 PT 19.6 SECONDS (9.7-12.2) H 12/22/18 08:55 INR 1.8 12/22/18 08:55 APTT 32 SECONDS (21-34) D 12/23/18 06:25 - Constitutional Appears: Well - Head Exam Head Exam: ATRAUMATIC, NORMAL INSPECTION, NORMOCEPHALIC - Eye Exam Eye Exam: EOMI, Normal appearance, PERRL Pupil Exam: NORMAL ACCOMODATION, PERRL - ENT Exam ENT Exam: Mucous Membranes Moist, Normal Exam - Neck Exam Neck Exam: Full ROM, Normal Inspection. absent: Lymphadenopathy - Respiratory Exam Respiratory Exam: Decreased Breath Sounds - Cardiovascular Exam Cardiovascular Exam: REGULAR RHYTHM, +S1, +S2 - GI/Abdominal Exam GI & Abdominal Exam: Soft, Diminished Bowel Sounds - Rectal Exam Rectal Exam: Deferred
--- NOTE | 2018-12-25 15:55 | CP.PCM.CON ---
History of Present Illness - History of Present Illness History of Present Illness: 48F currently in ICU with ventilator dependent respiratory distress. Patient has a hx of Graves disease, TIA and anxiety. She underwent 3 cardiac arrest during this admission. Patient currently on PRVC with fio2-30% and PEEP-5. ID consulted for antibiotic management PMH: HTN, Hyperthyroid, TIA, Anxiety asthma Graves disease PSH: None per chart 48yo female presented to the ER overnight with complaints of severe abdominal pain, nausea, and vomiting. In the ER, patient's BP was elevated and patient was tachycardic with HR 154bpm. Patient was noted to have a TSH <0.02 on initial blood work and was given IV labetalol 20mg and PO Inderal 40mg in the ER. Patient's BP began to drop and she was given fluids and glucaogon. Patient was evaluated and accepted by MICU team, however prior to transfer, she started to become bradycardic and pulseless. Code Blue was called in the ER and patient was resuscitated and ROSC was achieved s/p 1 epi. Patient was intubated and placed on mechanical vent. When patient was transferred to the MICU, she had two more episodes of cardiac arrest that lasted 3-4 minutes of chest compressions. Patient received a total of 3 x epinephrine and 1 x atropine. ROSC was achieved and patient had R femoral line placed and was started on levophed gtt. Bedside echo revealed severely dilated RV raising suspicion for possible PE; patient bolused and started on heparin gtt. Patient also has severe hypokinesis of LV. ABG revealed severe metabolic acidosis, hyperkalemic and hypoglycemic. PMHx: HTN, Hyperthyroidism, TIA, anxiety, asthma and Grave's dx PSurgHx: None FamHx: Maternal grandfather testicular ca, grandmother CVA, Mother and several other family members have DM SocHx: Denies tobacco and drug use, drinks EtOH socially Meds: Methimazole 10mg TID, Metoprolol 50mg ER qd, Xanax 0.5mg Review of Systems - Review of Systems Systems not reviewed;Unavailable: Altered Mental Status, Intubated - Constitutional Constitutional: As Per HPI - EENT Eyes: absent: As Per HPI, Blind Spots, Blurred Vision, Change in Vision, De creased Night Vision, Diplopia, Discharge, Dry Eye, Exophthalmos, Floaters, Irritation, Itchy Eyes, Loss of Peripheral Vision, Pain, Photophobia, Requires Corrective Lenses, Sees Flashes, Spots in Vision, Tunnel Vision, Other Visual Disturbances, Loss of Vision, Other Ears: absent: As Per HPI, Decreased Hearing, Ear Discharge, Ear Pain, Tinnitus, Abnormal Hearing, Disequilibrium, Dizziness, Other Nose/Mouth/Throat: absent: As Per HPI, Epistaxis, Nasal Congestion, Nasal Discharge, Nasal Obstruction, Nasal Trauma, Nose Pain, Post Nasal Drip, Sinus Pain, Sinus Pressure, Bleeding Gums, Change in Voice, Dental Pain, Dry Mouth, Dysphagia, Halitosis, Hoarsness, Lip Swelling, Mouth Lesions, Mouth Pain, Odynophagia, Sore Throat, Throat Swelling, Tongue Swelling, Facial Pain, Neck Pain, Neck Mass, Other - Breasts Breasts: absent: As Per HPI, Change in Shape, Mass, Pain, Nipple Discharge, Nipple Inversion, Skin Changes, Swelling, Other - Cardiovascular Cardiovascular: As Per HPI. absent: Acrocyanosis, Chest Pain, Chest Pain at Rest, Chest Pain with Activity, Claudication, Diaphoresis, Dyspnea, Dyspnea on Exertion, Edema, Irregular Heart Rhythm, Pain Radiating to Arm/Neck/Jaw, Leg Edema, Leg Ulcers, Lightheadedness, Orthopnea, Palpitations, Paroxysmal Nocturnal Dyspnea, Pedal Edema, Radiating Pain, Rapid Heart Rate, Slow Heart Rate, Syncope, Other - Respiratory Respiratory: As Per HPI - Gastrointestinal Gastrointestinal: absent: As Per HPI, Abdominal Pain, Belching, Bloating, Change in Bowel Habits, Change in Stool Character, Coffee Ground Emesis, Constipation, Cramping, Diarrhea, Dyspepsia, Dysphagia, Early Satiety, Excessive Flatus, Fecal Incontinence, Heartburn, Hematemesis, Hematochezia, Loose Stools, Melena, Nausea, Odynophagia, Temesmus, Vomiting, Other - Genitourinary Genitourinary: absent: As Per HPI, Change in Urinary Stream, Difficulty Urinating, Dysuria, Flank Pain, Hematuria, Pyuria, Nocturia, Urinary Incontinence, Urinary Frequency, Urinary Hesitance, Urinary Urgency, Voiding Freq/Small Amts, Freq UTI, Hx Renal/Bladder Calculi, Hx /Renal Surgery, Bladder Distension, Other - Reproductive: Female Reproductive:Female: absent: As Per HPI, Amenorrhea, Amenorrhea/ Control, C urrently Menstual, Cycle <21 Days, Cycle >35 Days, Cycle Variable, Menses 1-7 Days, Menses >/= 8 Days, Menses Variable, Cycle > 4 Weeks Between, No Menses for 6 Months, Heavy Menses, Light Menses, Normal Menses, Spotting Between Cycles, S/P Hysterectomy, Menopausal, Post Menopausal, Premenarche, Abnormal Vaginal Bleeding, Dysmenorrhea, Dyspareunia, Genital Lesions, Genital Pruritis, Pelvic Pain, Prolapse Symptoms, Sexual Dysfunction, Vaginal Discharge, Vaginal Dryness, Vaginal Odor, Vaginal Pruritis, Other - Menstruation Menstruation: absent: As Per HPI, Amenorrhea, Amenorrhea/ Control, Currently Menstual, Cycle <21 Days, Cycle >35 Days, Cycle Variable, Menses 1-7 Days, Menses >/= 8 Days, Menses Variable, Cycle > 4 Weeks Between, No Menses for 6 Months, Heavy Menses, Light Menses, Normal Menses, Spotting Between Cycles, S/P Hysterectomy, Menopausal, Post Menopausal, Premenarche, Abnormal Vaginal Bleeding, Dysmenorrhea, Other - Musculoskeletal Musculoskeletal: absent: As Per HPI, Abnormal Gait, Arthralgias, Atrophy, Back Pain, Deformity, Joint Swelling, Limited Range of Motion, Loss of Height, Muscle Cramps, Muscle Weakness, Myalgias, Neck Pain, Numbness, Radiating Pain into Limb, Stiffness, Tingling, Other - Integumentary Integumentary: absent: As Per HPI, Acne, Alopecia, Bleeding Lesions, Change in Hair, Change in Nails, Change in Pigmentation, Changing Lesions, Dry Skin, Erythema, Furuncle, Hirsutism, Lesions, New Lesions, Non-Healing Lesions, Photosensitivity, Pruritus, Rash, Skin Pain, Skin Ulcer, Sores, Striae, Swelling, Unusual Bruising, Wounds, Jaundice, Other - Neurological Neurological: As Per HPI - Psychiatric Psychiatric: As Per HPI Past Patient History - Infectious Disease Hx of Infectious Diseases: None - Past Medical History & Family History Past Medical History?: Yes - Past Social History Smoking Status: Never Smoked - CARDIAC Hx Cardiac Disorders: Yes Hx Hypertension: Yes - PULMONARY Hx Respiratory Disorders: Yes Hx Asthma: Yes - NEUROLOGICAL Hx Neurological Disorder: No - HEENT Hx HEENT Problems: Yes Other/Comment: uses glasses for reading - RENAL Hx Chronic Kidney Disease: No - ENDOCRINE/METABOLIC Hx Endocrine Disorders: Yes Hx Hyperthyroidism: Yes Hx Hypothyroidism: Yes - HEMATOLOGICAL/ONCOLOGICAL Hx Blood Disorders: No - INTEGUMENTARY Hx Dermatological Problems: No - MUSCULOSKELETAL/RHEUMATOLOGICAL Hx Musculoskeletal Disorders: Yes Hx Falls: Yes - GASTROINTESTINAL Hx Gastrointestinal Disorders: No - GENITOURINARY/GYNECOLOGICAL Hx Genitourinary Disorders: No - PSYCHIATRIC Hx Psychophysiologic Disorder: Yes Hx Anxiety: Yes - SURGICAL HISTORY Hx Surgeries: No - ANESTHESIA Hx Anesthesia: No Hx Anesthesia Reactions: No Hx Malignant Hyperthermia: No Has any member of the family had a problem w/ anesthesia?: No Meds Allergies/Adverse Reactions: Allergies Allergy/AdvReac Type Severity Reaction Status Date / Time No Known Allergies Allergy Verified 04/16/16 12:57 - Medications Medications: Current Medications Acetaminophen (Tylenol 650mg/20.3ml Solution Ud) 650 mg GT Q6 PRN PRN Reason: Temperature Last Admin: 12/24/18 10:31 Dose: 650 mg Aspirin (Aspirin Chewable) 81 mg PO DAILY [facility] Last Admin: 12/25/18 09:22 Dose: 81 mg Carvedilol (Coreg) 25 mg PO BID [facility] Last Admin: 12/25/18 10:38 Dose: 25 mg Enoxaparin Sodium (Lovenox) 30 mg SC DAILY [facility] Last Admin: 12/25/18 09:23 Dose: 30 mg Hydrocortisone Sodium Succinate (Solu-Cortef) 50 mg IV Q12H [facility] Last Admin: 12/25/18 09:24 Dose: 50 mg Meropenem 500 mg/ Sodium (Chloride) 100 mls @ 100 mls/hr IVPB Q8H [facility]; Protocol Last Admin: 12/25/18 10:31 Dose: 100 mls/hr Insulin Aspart (Novolog) 0 unit SC Q6H [facility]; Protocol Last Admin: 12/25/18 12:20 Dose: 1 u Methimazole (Tapazole) 20 mg PO Q8H [facility] Last Admin: 12/25/18 09:22 Dose: 20 mg Pantoprazole Sodium (Protonix Inj) 40 mg IVP DAILY [facility] Last Admin: 12/25/18 09:24 Dose: 40 mg Potassium Chloride (Potassium Chloride Oral Soln) 20 meq PO Q6H [facility] Stop: 12/25/18 16:16 Last Admin: 12/25/18 10:39 Dose: 20 meq Rosuvastatin Calcium (Crestor) 10 mg PO HS [facility] Verapamil HCl (Calan Tab) 40 mg PO Q12H [facility] Physical Exam - Constitutional Appears: No Acute Distress, Confused, Chronically Ill - Head Exam Head Exam: NORMOCEPHALIC - Eye Exam Eye Exam: absent: Scleral icterus Pupil Exam: NORMAL ACCOMODATION - ENT Exam ENT Exam: Mucous Membranes Dry, Normal External Ear Exam, Normal Oropharynx - Cardiovascular Exam Cardiovascular Exam: REGULAR RHYTHM, +S1, +S2 - GI/Abdominal Exam GI & Abdominal Exam: Diminished Bowel Sounds, Soft. absent: Tenderness - Rectal Exam Rectal Exam: Deferred - Extremities Exam Extremities exam: Positive for: pedal edema, pedal pulses present. Negative for: calf tenderness - Back Exam Back exam: absent: CVA tenderness (L), CVA tenderness (R) - Neurological Exam Neurological exam: Altered - Psychiatric Exam Psychiatric exam: Depressed - Skin Skin Exam: Dry Results - Vital Signs Recent Vital Signs: Last Vital Signs Temp 99.3 F 12/25/18 12:00 Pulse 88 12/25/18 15:36 Resp 20 12/25/18 15:36 BP 120/70 12/25/18 15:36 Pulse Ox 98 12/25/18 15:36 - Labs Result Diagrams: 12/25/18 06:13 12/25/18 06:11 Labs: Laboratory Results - last 24 hr 12/24/18 12/24/18 12/25/18 17:54 17:57 05:30 WBC RBC Hgb Hct MCV MCH MCHC RDW Plt Count MPV Neut % (Auto) Lymph % (Auto) [place] % (Auto) Eos % (Auto) Baso % (Auto) Neut # (Auto) Lymph # (Auto) [place] # (Auto) Eos # (Auto) Baso # (Auto) Puncture Site R rad pCO2 38 pO2 103 H HCO3 29.1 H ABG pH 7.49 H ABG Total CO2 30.2 H ABG O2 Saturation 99.4 H ABG Base Excess 5.3 H ABG Hemoglobin 10.1 L ABG Carboxyhemoglobin 2.3 H POC ABG HHb (Measured) 0.6 ABG Methemoglobin 1.1 Howard Test Pos A-a O2 Difference 63.0 Respiratory Index 0.6 Hgb O2 Saturation 96.0 Vent Mode Prvc Mechanical Rate 20 FiO2 30.0 Tidal Volume 400 PEEP 5 Sodium Potassium Chloride Carbon Dioxide Anion Gap BUN Creatinine Est GFR ( Amer) Est GFR (Non-Af Amer) Random Glucose Calcium Phosphorus Magnesium Total Bilirubin AST ALT Alkaline Phosphatase Total Protein Albumin Globulin Albumin/Globulin Ratio Vancomycin Trough Random Vancomycin Influenza Typ A,B (EIA) Negative for flu a/b Ur L.pneumophila Ag Negative 12/25/18 12/25/18 12/25/18 06:11 06:11 06:13 WBC 7.6 RBC 3.68 L Hgb 10.6 L Hct 32.3 L MCV 87.9 MCH 28.9 MCHC 32.9 L RDW 14.8 H Plt Count 102 L MPV 9.6 Neut % (Auto) 73.1 Lymph % (Auto) 18.2 L [place] % (Auto) 8.5 Eos % (Auto) 0.1 Baso % (Auto) 0.1 Neut # (Auto) 5.5 Lymph # (Auto) 1.4 [place] # (Auto) 0.6 Eos # (Auto) 0.0 Baso # (Auto) 0.0 Puncture Site pCO2 pO2 HCO3 ABG pH ABG Total CO2 ABG O2 Saturation ABG Base Excess ABG Hemoglobin ABG Carboxyhemoglobin POC ABG HHb (Measured) ABG Methemoglobin Howard Test A-a O2 Difference Respiratory Index Hgb O2 Saturation Vent Mode Mechanical Rate FiO2 Tidal Volume PEEP Sodium 151 H Potassium 3.2 L Chloride 118 H Carbon Dioxide 29 Anion Gap 7 L BUN 51 H Creatinine 1.6 H Est GFR ( Amer) 41 Est GFR (Non-Af Amer) 34 Random Glucose 173 H D Calcium 8.0 L Phosphorus 4.2 Magnesium 1.7 Total Bilirubin 0.9 AST 75 H D ALT 198 H D Alkaline Phosphatase 63 Total Protein 5.7 L Albumin 2.7 L Globulin 3.0 Albumin/Globulin Ratio 0.9 L Vancomycin Trough Cancelled Random Vancomycin 14.5 Influenza Typ A,B (EIA) Ur L.pneumophila Ag Assessment & Plan (1) Fever Status: Acute (2) TANVI (acute kidney injury) Status: Acute (3) Cardiac arrest Status: Acute Priority: High (4) Cardiomyopathy Status: Acute Priority: High (5) Thyrotoxicosis Status: Acute Priority: High - Assessment and Plan (Free Text) Assessment: fever s/p cardiac arrest r/o central causes r/o sepsis pneumonia will check cultures cont IV antibiotics
[2018-12-26] MEDS: (Novolog) Insulin Aspart, Recombinant 100 u/ml 10 ml vial SC SCH ×4 (00:33→18:05)
[2018-12-26] MEDS: Dexmedetomidine Hydrochloride 200 MCG in Sodium Chloride 0.9% 48 ML IV PRN ×6 (00:44→23:51)
[2018-12-26] MEDS: Meropenem 500 MG in Sodium Chloride 0.9% 100 ML IVPB SCH ×3 (01:00→17:23)
--- NOTE | 2018-12-26 05:41 | CP.PCM.PN ---
Subjective - Date & Time of Evaluation Date of Evaluation: 12/26/18 Time of Evaluation: 07:00 - Subjective Subjective: Pgy3 IM Resident Endocrinology Progress note for Dr. Weaver Patient seen and examined at bedside. Weekend events noted. Remains intubated and sedated on vent. Spiked temp over the weekend. No acute events overnight. ROS unobtainable secondary to clinical condition. Objective - Vital Signs/Intake and Output Vital Signs (last 24 hours): Temp Pulse Resp BP Pulse Ox 98.2 F 106 H 20 153/94 H 100 12/26/18 04:00 12/26/18 04:00 12/26/18 04:00 12/26/18 03:50 12/26/18 04:00 Intake and Output: 12/25/18 12/26/18 18:59 06:59 Intake Total 3610.7 1372.6 Output Total 645 770 Balance 2965.7 602.6 - Medications Medications: Current Medications Acetaminophen (Tylenol 650mg/20.3ml Solution Ud) 650 mg GT Q6 PRN PRN Reason: Temperature Last Admin: 12/24/18 10:31 Dose: 650 mg Aspirin (Aspirin Chewable) 81 mg PO DAILY [facility] Last Admin: 12/25/18 09:22 Dose: 81 mg Carvedilol (Coreg) 25 mg PO BID [place] Last Admin: 12/25/18 17:08 Dose: 25 mg Enoxaparin Sodium (Lovenox) 30 mg SC DAILY [facility] Last Admin: 12/25/18 09:23 Dose: 30 mg Hydrocortisone Sodium Succinate (Solu-Cortef) 50 mg IV Q12H [place] Last Admin: 12/25/18 21:03 Dose: 50 mg Meropenem 500 mg/ Sodium (Chloride) 100 mls @ 100 mls/hr IVPB Q8H [place]; Protocol Last Admin: 12/26/18 01:00 Dose: 100 mls/hr Dexmedetomidine HCl 200 mcg/ (Sodium Chloride) 50 mls @ 3.54 mls/hr IV TITR PRN; Protocol PRN Reason: Agitation Last Admin: 12/26/18 03:50 Dose: 1 mcg/kg/hr, 17.69 mls/hr Insulin Aspart (Novolog) 0 unit SC Q6H [place]; Protocol Last Admin: 12/26/18 00:33 Dose: 1 u Methimazole (Tapazole) 20 mg PO Q8H [facility] Last Admin: 12/26/18 00:59 Dose: 20 mg Pantoprazole Sodium (Protonix Inj) 40 mg IVP DAILY [facility] Last Admin: 12/25/18 09:24 Dose: 40 mg Rosuvastatin Calcium (Crestor) 10 mg PO HS [facility] Last Admin: 12/25/18 21:03 Dose: 10 mg Verapamil HCl (Calan Tab) 40 mg PO Q12H [facility] Last Admin: 12/25/18 23:47 Dose: 40 mg - Labs Labs: 12/25/18 06:13 12/25/18 06:11 PT 19.6 SECONDS (9.7-12.2) H 12/22/18 08:55 INR 1.8 12/22/18 08:55 APTT 32 SECONDS (21-34) D 12/23/18 06:25 - Constitutional Appears: Non-toxic, No Acute Distress - Head Exam Head Exam: ATRAUMATIC, NORMAL INSPECTION - Eye Exam Eye Exam: Normal appearance. absent: Conjunctival injection, Scleral icterus - ENT Exam Additional comments: ET tube in place - Respiratory Exam Respiratory Exam: absent: Accessory Muscle Use, Rales, Rhonchi, Wheezes Additional comments: intubated on vent - Cardiovascular Exam Cardiovascular Exam: Tachycardia, +S1, +S2 - GI/Abdominal Exam GI & Abdominal Exam: Soft, Normal Bowel Sounds. absent: Firm, Guarding - Extremities Exam Extremities Exam: Normal Inspection. absent: Pedal Edema, Tenderness - Neurological Exam Additional comments: sedated - Skin Skin Exam: Dry, Intact, Normal Color Assessment and Plan - Assessment and Plan (Free Text) Assessment: 48yo female PMHx HTN, Hyperthyroidism, TIA, anxiety, asthma and Grave's dx presented to the ER overnight with complaints of severe abdominal pain, nausea, and vomiting. Patient had cardiac arrest x 3 and ROSC was achieved. Admitted to MICU for further management. Endocrinology consulted for possible thyroid storm. Plan: Overnight events, imaging, and blood work noted. T4 on 12/24 is 13.8 and AM Cortisol was 23.3. Will repeat TSH, total T4, and AM cortisol for next day. Will continue solucortef 50q12 to inhibit conversion from T3 to T4 and Tapazole to 20q8. Tapazole more potent and longer acting than PTU which is short acting. Will continue to monitor blood work. Cardio reccs appreciated. Echo reviewed. Continue to correct electrolyte abnl. Continue management as per primary and MICU team. Discussed with Dr. Owen Crowell PGY3
[2018-12-26 06:18] LABS: BASO % 0.1 % (0.0-2.0); EOS % 0.2 % (0.0-4.0); HEMOGLOBIN 10.8 g/dL (11.0-16.0); LYMPH # 1.4 K/uL (1.0-4.3); LYMPH % 13.5 % (20.0-40.0); MEAN CELL VOLUME 88.4 fL (81.0-99.0); MEAN CORPUSCULAR HGB CONC 32.8 g/dL (33.0-37.0); MEAN PLATELET VOLUME 9.8 fL (7.2-11.7); MONO # 0.7 K/uL (0.0-0.8); NEUT # 8.4 K/uL (1.8-7.0); NEUT % 79.2 % (50.0-75.0); RBC 3.72 Mil/uL (3.80-5.20); RED CELL DISTRIBUTION WIDTH 14.9 % (11.5-14.5); WHITE BLOOD COUNT 10.6 K/uL (4.8-10.8)
[2018-12-26 06:28] LABS: INR 1.3; PROTHROMBIN TIME 14.1 SECONDS (9.7-12.2)
[2018-12-26 06:31] LABS: ALB/GLOB RATIO 0.9 (1.0-2.1); ALBUMIN 2.8 g/dL (3.5-5.0); ALT/SGPT 129 U/L (9-52); AST/SGOT 43 U/L (14-36); BLOOD UREA NITROGEN 44 mg/dL (7-17); CALCIUM 8.1 mg/dl (8.6-10.4); GFR NON-AFRICAN AMERICAN 44
--- NOTE | 2018-12-26 07:38 | CP.CCUPN ---
CCU Subjective - Physician Review Subjective (Free Text): ICU Progress Note for Dr. Wu Pt seen and examined at bedside this am. Currently intubated. Unable to obtain further HPI or ROS due to current clinical status. No acute events reported overnight by staff. Pt able to track towards voice on exam. CCU Objective - Vital Signs / Intake & Output Vital Signs (Last 4 hours): Vital Signs Temp Pulse Resp BP Pulse Ox 12/26/18 07:00 86 21 100 12/26/18 06:50 87 20 154/92 H 98 12/26/18 06:00 107 H 20 98 12/26/18 05:50 131/82 12/26/18 05:00 108 H 20 100 12/26/18 04:49 152/93 H 12/26/18 04:00 98.2 F 106 H 20 100 12/26/18 03:50 153/94 H Intake and Output (Last 8hrs): Intake & Output 12/25/18 12/26/18 12/26/18 22:59 06:59 14:59 Intake Total 1165.8 763.8 Output Total 460 1170 Balance 705.8 -406.2 Weight 157 lb Intake: IV 100 105 Intake, IV Amount 275.8 348.8 left Hand 200 200 right hand 75.8 148.8 Tube Feeding 240 60 Other 550 250 Output: Urine 460 1150 Urethral (Perez) 460 1150 Stool 20 - Physical Exam Head: Positive for: Atraumatic, Normocephalic Pupils: Positive for: PERRL Extroacular Muscles: Positive for: EOMI. Negative for: Gaze Palsy Conjunctiva: Positive for: Normal Mouth: Positive for: Moist Mucous Membranes Neck: Positive for: Normal Range of Motion, Trachea Midline. Negative for: Meningeal Signs, MIDLINE TENDERNESS, Paraspinal Tenderness, JVD, Lymphadenopathy, Bruit, Other Respiratory/Chest: Positive for: Clear to Auscultation, Good Air Exchange, Other (currently intubated on vent). Negative for: Respiratory Distress, Accessory Muscle Use, Wheezes, Rales, Rhonchi Cardiovascular: Positive for: Normal S1, S2, Tachycardic. Negative for: Murmurs, Rub, Gallop Abdomen: Positive for: Normal Bowel Sounds. Negative for: Tenderness, Distention, Mass/Organomegaly Upper Extremity: Positive for: Normal Inspection, NORMAL PULSES, Neurovascularly Intact, Capillary Refill < 2s. Negative for: Cyanosis, Edema Lower Extremity: Positive for: Normal Inspection, NORMAL PULSES, Neurovascularly Intact, Capillary Refill < 2 s. Negative for: Edema Neurological: Positive for: Other (currently intubated ) Skin: Positive for: Warm, Dry, Normal Color Psychiatric: Positive for: Other (intubated) - Medications Active Medications: Active Medications Generic Name Dose Route Start Last Admin Trade Name Freq PRN Reason Stop Dose Admin Acetaminophen 650 mg 12/21/18 15:53 12/24/18 10:31 Tylenol 650mg/20.3ml Solution Ud GT 650 mg Q6 PRN Administration Temperature Aspirin 81 mg 12/24/18 10:00 12/25/18 09:22 Aspirin Chewable PO 81 mg DAILY [place] Administration Carvedilol 25 mg 12/24/18 10:00 12/25/18 17:08 Coreg PO 25 mg BID [place] Administration Enoxaparin Sodium 30 mg 12/23/18 10:00 12/25/18 09:23 Lovenox SC 30 mg DAILY [place] Administration Hydrocortisone Sodium Succinate 50 mg 12/24/18 10:00 12/25/18 21:03 Solu-Cortef IV 50 mg Q12H [place] Administration Meropenem 500 mg/ Sodium 100 mls @ 100 mls/hr 12/24/18 18:00 12/26/18 01:00 Chloride IVPB 100 mls/hr Q8H [place] Administration Protocol Dexmedetomidine HCl 200 mcg/ 50 mls @ 3.54 mls/hr 12/25/18 16:33 12/26/18 04:00 Sodium Chloride IV 0.8 mcg/kg/hr TITR PRN 14.15 mls/hr Agitation Titration Protocol 0.2 MCG/KG/HR Insulin Aspart 0 unit 12/24/18 12:00 12/26/18 06:35 Novolog SC Not Given Q6H [place] Protocol Methimazole 20 mg 12/24/18 10:00 12/26/18 00:59 Tapazole PO 20 mg Q8H [place] Administration Pantoprazole Sodium 40 mg 12/21/18 10:15 12/25/18 09:24 Protonix Inj IVP 40 mg DAILY [place] Administration Rosuvastatin Calcium 10 mg 12/25/18 22:00 12/25/18 21:03 Crestor PO 10 mg HS [place] Administration Verapamil HCl 40 mg 12/26/18 00:00 12/25/18 23:47 Calan Tab PO 40 mg Q12H [place] Administration - Patient Studies Lab Studies: Microbiology Studies 12/21/18 08:39 Blood Culture - Preliminary Blood NO GROWTH AFTER 4 DAYS 12/21/18 08:39 Blood Culture - Preliminary Blood NO GROWTH AFTER 4 DAYS Lab Studies 12/26/18 12/26/18 12/26/18 Range/Units 06:07 06:07 06:06 WBC 10.6 (4.8-10.8) K/uL RBC 3.72 L (3.80-5.20) Mil/uL Hgb 10.8 L (11.0-16.0) g/dL Hct 32.9 L (34.0-47.0) % MCV 88.4 (81.0-99.0) fL MCH 29.0 (27.0-31.0) pg MCHC 32.8 L (33.0-37.0) g/dL RDW 14.9 H (11.5-14.5) % Plt Count 108 L (130-400) K/uL MPV 9.8 (7.2-11.7) fL Neut % (Auto) 79.2 H (50.0-75.0) % Lymph % (Auto) 13.5 L (20.0-40.0) % Kenton % (Auto) 7.0 (0.0-10.0) % Eos % (Auto) 0.2 (0.0-4.0) % Baso % (Auto) 0.1 (0.0-2.0) % Neut # (Auto) 8.4 H (1.8-7.0) K/uL Lymph # (Auto) 1.4 (1.0-4.3) K/uL Kenton # (Auto) 0.7 (0.0-0.8) K/uL Eos # (Auto) 0.0 (0.0-0.7) K/uL Baso # (Auto) 0.0 (0.0-0.2) K/uL PT 14.1 H (9.7-12.2) SECONDS INR 1.3 APTT 32 (21-34) SECONDS Sodium (132-148) mmol/L Potassium (3.6-5.2) mmol/L Chloride (98-107) mmol/L Carbon Dioxide (22-30) mmol/L Anion Gap (10-20) BUN (7-17) mg/dL Creatinine (0.7-1.2) mg/dL Est GFR ( Amer) Est GFR (Non-Af Amer) Random Glucose (65-105) mg/dL Calcium (8.6-10.4) mg/dl Phosphorus (2.5-4.5) mg/dL Magnesium (1.6-2.3) mg/dL Total Bilirubin (0.2-1.3) mg/dL AST (14-36) U/L ALT (9-52) U/L Alkaline Phosphatase (38-126) U/L Total Protein (6.3-8.3) g/dL Albumin (3.5-5.0) g/dL Globulin (2.2-3.9) gm/dL Albumin/Globulin Ratio (1.0-2.1) Urine HCG, Qual Negative (NEGATIVE) Influenza Typ A,B (EIA) (NEGATIVE) Ur L.pneumophila Ag (NEGATIVE) 12/26/18 12/24/18 12/24/18 Range/Units 06:05 17:57 17:54 WBC (4.8-10.8) K/uL RBC (3.80-5.20) Mil/uL Hgb (11.0-16.0) g/dL Hct (34.0-47.0) % MCV (81.0-99.0) fL MCH (27.0-31.0) pg MCHC (33.0-37.0) g/dL RDW (11.5-14.5) % Plt Count (130-400) K/uL MPV (7.2-11.7) fL Neut % (Auto) (50.0-75.0) % Lymph % (Auto) (20.0-40.0) % Kenton % (Auto) (0.0-10.0) % Eos % (Auto) (0.0-4.0) % Baso % (Auto) (0.0-2.0) % Neut # (Auto) (1.8-7.0) K/uL Lymph # (Auto) (1.0-4.3) K/uL Kenton # (Auto) (0.0-0.8) K/uL Eos # (Auto) (0.0-0.7) K/uL Baso # (Auto) (0.0-0.2) K/uL PT (9.7-12.2) SECONDS INR APTT (21-34) SECONDS Sodium 146 (132-148) mmol/L Potassium 4.2 (3.6-5.2) mmol/L Chloride 112 H (98-107) mmol/L Carbon Dioxide 27 (22-30) mmol/L Anion Gap 11 (10-20) BUN 44 H (7-17) mg/dL Creatinine 1.3 H (0.7-1.2) mg/dL Est GFR ( Amer) 53 Est GFR (Non-Af Amer) 44 Random Glucose 168 H (65-105) mg/dL Calcium 8.1 L (8.6-10.4) mg/dl Phosphorus 4.2 (2.5-4.5) mg/dL Magnesium 2.0 (1.6-2.3) mg/dL Total Bilirubin 0.9 (0.2-1.3) mg/dL AST 43 H D (14-36) U/L ALT 129 H D (9-52) U/L Alkaline Phosphatase 71 (38-126) U/L Total Protein 5.8 L (6.3-8.3) g/dL Albumin 2.8 L (3.5-5.0) g/dL Globulin 3.0 (2.2-3.9) gm/dL Albumin/Globulin Ratio 0.9 L (1.0-2.1) Urine HCG, Qual (NEGATIVE) Influenza Typ A,B (EIA) Negative for flu a/b (NEGATIVE) Ur L.pneumophila Ag Negative (NEGATIVE) Laboratory Results - last 24 hr 12/24/18 12/24/18 12/26/18 17:54 17:57 06:05 WBC RBC Hgb Hct MCV MCH MCHC RDW Plt Count MPV Neut % (Auto) Lymph % (Auto) Kenton % (Auto) Eos % (Auto) Baso % (Auto) Neut # (Auto) Lymph # (Auto) Kenton # (Auto) Eos # (Auto) Baso # (Auto) PT INR APTT Sodium 146 Potassium 4.2 Chloride 112 H Carbon Dioxide 27 Anion Gap 11 BUN 44 H Creatinine 1.3 H Est GFR ( Amer) 53 Est GFR (Non-Af Amer) 44 Random Glucose 168 H Calcium 8.1 L Phosphorus 4.2 Magnesium 2.0 Total Bilirubin 0.9 AST 43 H D ALT 129 H D Alkaline Phosphatase 71 Total Protein 5.8 L Albumin 2.8 L Globulin 3.0 Albumin/Globulin Ratio 0.9 L Urine HCG, Qual Influenza Typ A,B (EIA) Negative for flu a/b Ur L.pneumophila Ag Negative 12/26/18 12/26/18 12/26/18 06:06 06:07 06:07 WBC 10.6 RBC 3.72 L Hgb 10.8 L Hct 32.9 L MCV 88.4 MCH 29.0 MCHC 32.8 L RDW 14.9 H Plt Count 108 L MPV 9.8 Neut % (Auto) 79.2 H Lymph % (Auto) 13.5 L Kenton % (Auto) 7.0 Eos % (Auto) 0.2 Baso % (Auto) 0.1 Neut # (Auto) 8.4 H Lymph # (Auto) 1.4 Kenton # (Auto) 0.7 Eos # (Auto) 0.0 Baso # (Auto) 0.0 PT 14.1 H INR 1.3 APTT 32 Sodium Potassium Chloride Carbon Dioxide Anion Gap BUN Creatinine Est GFR ( Amer) Est GFR (Non-Af Amer) Random Glucose Calcium Phosphorus Magnesium Total Bilirubin AST ALT Alkaline Phosphatase Total Protein Albumin Globulin Albumin/Globulin Ratio Urine HCG, Qual Negative Influenza Typ A,B (EIA) Ur L.pneumophila Ag Radiology Impressions: Radiology Impressions Chest X-Ray 12/25/18 07:02 IMPRESSION: Small left pleural effusion. Fingerstick Blood Sugar Results: 179 Review of Systems - Review of Systems Systems not reviewed;Unavailable: Intubated Critical Care Progress Note - Nutrition Nutrition: Nutrition Category Date Time Status NPO Diet [DIET] Diets 12/25/18 Breakfast Active Assessment/Plan - Assessment and Plan (Free Text) Assessment: 48 y o female PMhx HTN, hyperthyroidism, TIA, anxiety, asthma, Grave's disease, who presented to the ED overnight with c/o severe abd pain, n/v. Per ED pt did not take home meds for about 3 wks, non-compliant with therapy. Pt presented hypertensive and tachycardic in ED, TSH < 0.02 on initial bloodwork, was given IV Labetalol and PO Inderal in the ED. Pt's bp began to drop after and was given fluids and IV glucagon. Pt was evaluated and accepted by ICU team at time, however prior to transfer, started to become bradycardic and went pulseless. Zandra Sanchez was called in ED and pt was resuscitated, ROSC achieved s/p epi x1. Pt subsequently was intubated and placed on mechanical vent. Pt had 2 additional episodes of cardiac arrest while being transferred to ICU that lasted 3-4 mins of chest compressions, received total epi x3 and atropine x1. ROSC achieved, pt had R femoral line placed, started on Levophed drip. Bedside echo revealed severely dilated R ventricle, raising suspicion for possible PE, pt was bolused and started on Heparin drip. Pt also has severe hypokinesis of L ventricle. Pt presented with severe metabolic acidosis, hyperkalemia and hypoglycemia. S/p 4 amps bicarb, 1 amp Ca gluconate, 1 amp D50. Currently being monitored in ICU, intubated on vent, wean off as tolerated. Admitted to ICU for management of thyrotoxicosis. Plan: Neuro: -Intubated and sedated on vent, Versed drip, wean off as tolerated -Cont to monitor -Head CT on admission: Limited study given suboptimal pt positing. Streak artifact in posterior fossa limits eval at that level. No acute intracranial abnormality. -Neurology (Dr. Gill) consulted for anoxic brain injury, recs appreciated -Video EEG ordered for today, f/u results Cardio: -Tachycardia persistent, hypertensive -Levophed drip d/c'd -HTN meds changed to Propranolol tid -Solu-cortef tapered down to 50 mg bid -Echo: LV function severely reduced with diffuse hypokinesis, LVEF 15%. Infe roapex and apical-septum akinetic. LSub optimal assessment of wall motion due to reduced study quality, apex not well seen. IV echo contrast would have improved assessment. R ventricle mod-markedly dilated. RVSF mod reduced. Mild aortic regurg. Mod tricuspid regurg. Ascending aorta mildly dilated. -Hyperkalemia resolved, cont to trend on labs -Venous duplex LE b/l neg for DVT -Cardiology consulted (Dr. Bah), recs appreciated -CT angio chest neg for PE, Heparin drip d/c'd Pulm: -Currently on vent, sedated with Versed, wean off as tolerated -Metabolic acidosis resolved with most recent ABG -Recent CXR: Bilateral infiltrate atelectasis and b/l effusions. -Leukocytosis resolved -Surgery consulted for tracheostomy (Dr. Bateman), recs appreciated GI: -NPO -Tube feeds -IVF d/c'd 2/2 fluid overload -Protonix -Unable to assess abd pain currently 2/2 pt's current mental status -Transaminitis present, may be 2/2 to shock liver, cont to trend -GI (Dr. Blair) consulted for Peg tube placement, recs appreciated Heme: -H/H downtrending, may be 2/2 dilutional effect, cont to trend -No leukocytosis ID: -Leukocytosis, cont to trend -Anbx changed to Merrem as per ID recs -ID consulted, Dr. Strange, recs appreciated -Blood cx NGTD -Urine and sputum cxs neg Endo: -Hx Grave's disease, pt non-compliant with home meds x3 weeks -TSH < 0.02 on admission, recent level today the same -R/o thyroid storm? as etiology of symptoms, thyrotoxicosis -Endocrinology (Dr. Weaver) consulted, recs appreciated -Methimazole 20 mg PO q8h, Solu-cortef 50 mg q12h -T4 elevated, thyroperoxidase Ab positive, Thyroglobulin Ab neg; serum cortisol elevated on 12/24 Renal: -BUN/Cr trending down cont to monitor -Cont to trend I's/O's -Nephro consulted for TANVI (Dr. Call), recs appreciated PPX: -Protonix -Lovenox, SCD -PT eval placed Pt seen, examined with, and plan discussed with Dr. Wu, attending physician. Moncho Karimi, PGY-1, Load Out Person Pager #[phone]
[2018-12-26 08:56] LABS: HEPATITIS B SURFACE AG Negative (NEGATIVE)
[2018-12-26 09:01] LABS: HEPATITIS A IGM NEGATIVE (NEGATIVE); HEPATITIS B CORE AB NEGATIVE (NEGATIVE)
--- NOTE | 2018-12-26 09:10 | RAD ---
Date of service: 12/26/2018 HISTORY: et tube COMPARISON: No prior. TECHNIQUE: 1 view obtained. FINDINGS: In situ ETT, tip of which lies approximately 3.4 cm above michael. In situ NGT,, distal aspect of which is coiled upon itself tip of which is oriented superiorly near the fundus of the stomach. LUNGS: Patchy bilateral infiltrates and atelectatic changes both mid to lower lung klein with bilateral effusions. PLEURA: As above. No pneumothorax apparent. CARDIOVASCULAR: No aortic atherosclerotic calcification present. Normal cardiac size. No pulmonary vascular congestion. OSSEOUS STRUCTURES: No significant abnormalities. VISUALIZED UPPER ABDOMEN: Normal. OTHER FINDINGS: None. IMPRESSION: ETT and NGT as above. Bilateral infiltrates atelectasis and bilateral effusions.
[2018-12-26 09:13] LABS: HEPATITIS C ANTIBODY NEGATIVE (NEGATIVE)
--- NOTE | 2018-12-26 09:34 | CP.PCM.CON ---
History of Present Illness - History of Present Illness History of Present Illness: This is a 48 year old woman with altered mental status for PEG. Patient was admitted 12/21/2018 with nausea, vomiting, tachycardia, hypertension. She sustained three cardiac arrests on the day of admission. Since then, she has been intubated and is receiving enteral nutrition via NG tube. She is obtunded and opens eyes to noxious stimuli. Review of Systems - Review of Systems Systems not reviewed;Unavailable: Altered Mental Status Past Patient History - Infectious Disease Hx of Infectious Diseases: None - Past Medical History & Family History Past Medical History?: Yes - Past Social History Smoking Status: Never Smoked - CARDIAC Hx Cardiac Disorders: Yes Hx Hypertension: Yes - PULMONARY Hx Respiratory Disorders: Yes Hx Asthma: Yes - NEUROLOGICAL Hx Neurological Disorder: No - HEENT Hx HEENT Problems: Yes Other/Comment: uses glasses for reading - RENAL Hx Chronic Kidney Disease: No - ENDOCRINE/METABOLIC Hx Endocrine Disorders: Yes Hx Hyperthyroidism: Yes Hx Hypothyroidism: Yes - HEMATOLOGICAL/ONCOLOGICAL Hx Blood Disorders: No - INTEGUMENTARY Hx Dermatological Problems: No - MUSCULOSKELETAL/RHEUMATOLOGICAL Hx Musculoskeletal Disorders: Yes Hx Falls: Yes - GASTROINTESTINAL Hx Gastrointestinal Disorders: No - GENITOURINARY/GYNECOLOGICAL Hx Genitourinary Disorders: No - PSYCHIATRIC Hx Psychophysiologic Disorder: Yes Hx Anxiety: Yes - SURGICAL HISTORY Hx Surgeries: No - ANESTHESIA Hx Anesthesia: No Hx Anesthesia Reactions: No Hx Malignant Hyperthermia: No Has any member of the family had a problem w/ anesthesia?: No Meds Allergies/Adverse Reactions: Allergies Allergy/AdvReac Type Severity Reaction Status Date / Time No Known Allergies Allergy Verified 04/16/16 12:57 - Medications Medications: Current Medications Acetaminophen (Tylenol 650mg/20.3ml Solution Ud) 650 mg GT Q6 PRN PRN Reason: Temperature Last Admin: 12/24/18 10:31 Dose: 650 mg Aspirin (Aspirin Chewable) 81 mg PO DAILY [facility] Last Admin: 12/25/18 09:22 Dose: 81 mg Carvedilol (Coreg) 25 mg PO BID [facility] Last Admin: 12/26/18 09:09 Dose: 25 mg Enoxaparin Sodium (Lovenox) 30 mg SC DAILY [facility] Last Admin: 12/25/18 09:23 Dose: 30 mg Hydrocortisone Sodium Succinate (Solu-Cortef) 50 mg IV Q12H [facility] Last Admin: 12/26/18 09:08 Dose: 50 mg Meropenem 500 mg/ Sodium (Chloride) 100 mls @ 100 mls/hr IVPB Q8H [place]; Protocol Last Admin: 12/26/18 09:15 Dose: 100 mls/hr Dexmedetomidine HCl 200 mcg/ (Sodium Chloride) 50 mls @ 3.54 mls/hr IV TITR PRN; Protocol PRN Reason: Agitation Last Titration: 12/26/18 09:25 Dose: 0.7 mcg/kg/hr, 12.38 mls/hr Insulin Aspart (Novolog) 0 unit SC Q6H [place]; Protocol Last Admin: 12/26/18 06:35 Dose: Not Given Methimazole (Tapazole) 20 mg PO Q8H [place] Last Admin: 12/26/18 09:19 Dose: 20 mg Pantoprazole Sodium (Protonix Inj) 40 mg IVP DAILY [place] Last Admin: 12/26/18 09:08 Dose: 40 mg Rosuvastatin Calcium (Crestor) 10 mg PO HS [place] Last Admin: 12/25/18 21:03 Dose: 10 mg Verapamil HCl (Calan Tab) 40 mg PO Q12H [place] Last Admin: 12/25/18 23:47 Dose: 40 mg Physical Exam - Constitutional Appears: Other Additional comments: Sedated - Head Exam Head Exam: ATRAUMATIC, NORMOCEPHALIC - Neck Exam Neck exam: Negative for: Lymphadenopathy - Respiratory Exam Respiratory Exam: NORMAL BREATHING PATTERN. absent: Rales, Rhonchi, Wheezes - Cardiovascular Exam Cardiovascular Exam: REGULAR RHYTHM, +S1, +S2 - GI/Abdominal Exam GI & Abdominal Exam: Normal Bowel Sounds, Soft. absent: Mass, Organomegaly, Tenderness - Rectal Exam Rectal Exam: Deferred - Extremities Exam Extremities exam: Negative for: calf tenderness, pedal edema Results - Vital Signs Recent Vital Signs: Last Vital Signs Temp 98 F 12/26/18 07:56 Pulse 86 12/26/18 08:00 Resp 20 12/26/18 08:00 BP 153/92 H 12/26/18 09:09 Pulse Ox 100 12/26/18 08:00 - Labs Result Diagrams: 12/26/18 06:07 12/26/18 06:05 Labs: Laboratory Results - last 24 hr 12/24/18 12/25/18 12/25/18 17:54 06:11 06:11 WBC RBC Hgb Hct MCV MCH MCHC RDW Plt Count MPV Neut % (Auto) Lymph % (Auto) Bonner % (Auto) Eos % (Auto) Baso % (Auto) Neut # (Auto) Lymph # (Auto) Bonner # (Auto) Eos # (Auto) Baso # (Auto) PT INR APTT Sodium Potassium Chloride Carbon Dioxide Anion Gap BUN Creatinine Est GFR ( Amer) Est GFR (Non-Af Amer) Random Glucose Calcium Phosphorus Magnesium Total Bilirubin AST ALT Alkaline Phosphatase Total Protein Albumin Globulin Albumin/Globulin Ratio Procalcitonin Urine HCG, Qual Hepatitis A IgM Ab Negative Hep Bs Antigen Negative Hep B Core IgM Ab Negative Hepatitis C Antibody Negative HIV 1&2 Antibody Screen Negative Ur L.pneumophila Ag Negative 12/26/18 12/26/18 12/26/18 06:05 06:05 06:06 WBC RBC Hgb Hct MCV MCH MCHC RDW Plt Count MPV Neut % (Auto) Lymph % (Auto) Bonner % (Auto) Eos % (Auto) Baso % (Auto) Neut # (Auto) Lymph # (Auto) Bonner # (Auto) Eos # (Auto) Baso # (Auto) PT INR APTT Sodium 146 Potassium 4.2 Chloride 112 H Carbon Dioxide 27 Anion Gap 11 BUN 44 H Creatinine 1.3 H Est GFR ( Amer) 53 Est GFR (Non-Af Amer) 44 Random Glucose 168 H Calcium 8.1 L Phosphorus 4.2 Magnesium 2.0 Total Bilirubin 0.9 AST 43 H D ALT 129 H D Alkaline Phosphatase 71 Total Protein 5.8 L Albumin 2.8 L Globulin 3.0 Albumin/Globulin Ratio 0.9 L Procalcitonin 0.42 Urine HCG, Qual Negative Hepatitis A IgM Ab Hep Bs Antigen Hep B Core IgM Ab Hepatitis C Antibody HIV 1&2 Antibody Screen Ur L.pneumophila Ag 12/26/18 12/26/18 06:07 06:07 WBC 10.6 RBC 3.72 L Hgb 10.8 L Hct 32.9 L MCV 88.4 MCH 29.0 MCHC 32.8 L RDW 14.9 H Plt Count 108 L MPV 9.8 Neut % (Auto) 79.2 H Lymph % (Auto) 13.5 L Bonner % (Auto) 7.0 Eos % (Auto) 0.2 Baso % (Auto) 0.1 Neut # (Auto) 8.4 H Lymph # (Auto) 1.4 Bonner # (Auto) 0.7 Eos # (Auto) 0.0 Baso # (Auto) 0.0 PT 14.1 H INR 1.3 APTT 32 Sodium Potassium Chloride Carbon Dioxide Anion Gap BUN Creatinine Est GFR ( Amer) Est GFR (Non-Af Amer) Random Glucose Calcium Phosphorus Magnesium Total Bilirubin AST ALT Alkaline Phosphatase Total Protein Albumin Globulin Albumin/Globulin Ratio Procalcitonin Urine HCG, Qual Hepatitis A IgM Ab Hep Bs Antigen Hep B Core IgM Ab Hepatitis C Antibody HIV 1&2 Antibody Screen Ur L.pneumophila Ag Assessment & Plan (1) Dysphagia Assessment and Plan: Patient has anoxic encephalopathy and is a suitable candidate for a PEG. Will hold aspirin and schedule the procedure for later in the week. Status: Acute
[2018-12-26] MEDS: Enoxaparin 30 mg Syringe SC SCH (10:26)
[2018-12-26 10:46] LABS: ABG ALLEN TEST POS; ARTERIAL BLOOD GAS HCO3 27.1 mmol/L (21-28); ARTERIAL BLOOD GAS O2 SAT 99.3 % (95-98); ARTERIAL BLOOD GAS PCO2 36 mm/Hg (35-45); ARTERIAL BLOOD GAS PH 7.47 (7.35-7.45); ARTERIAL BLOOD GAS PO2 115 mm/Hg (80-100); ARTERIAL BLOOD GAS TCO2 27.3 mmol/L (22-28)
--- NOTE | 2018-12-26 11:23 | CP.PCM.CON ---
History of Present Illness - History of Present Illness History of Present Illness: PGY-1 Neuro Consult Note [address] Dr[address] Babb Patient is a 48 year old female with a PMH of hypertension, TIA, asthma, and Grave's disease admitted for thyroid storm. Neuro was consulted for possible anoxic brain injury as patient coded 3 times of day of admission with ROSC being achieved in less than 10 minutes each time. Patient remains intubated since admission. Patient is unable to speak due to intubation. She is arousable and does track, but is unable to participate in interview. Mother and Father are at bedside. Review of Systems - Review of Systems Systems not reviewed;Unavailable: Intubated Past Patient History - Infectious Disease Hx of Infectious Diseases: None - Past Medical History & Family History Past Medical History?: Yes - Past Social History Smoking Status: Never Smoked - CARDIAC Hx Cardiac Disorders: Yes Hx Hypertension: Yes - PULMONARY Hx Respiratory Disorders: Yes Hx Asthma: Yes - NEUROLOGICAL Hx Neurological Disorder: No - HEENT Hx HEENT Problems: Yes Other/Comment: uses glasses for reading - RENAL Hx Chronic Kidney Disease: No - ENDOCRINE/METABOLIC Hx Endocrine Disorders: Yes Hx Hyperthyroidism: Yes Hx Hypothyroidism: Yes - HEMATOLOGICAL/ONCOLOGICAL Hx Blood Disorders: No - INTEGUMENTARY Hx Dermatological Problems: No - MUSCULOSKELETAL/RHEUMATOLOGICAL Hx Musculoskeletal Disorders: Yes Hx Falls: Yes - GASTROINTESTINAL Hx Gastrointestinal Disorders: No - GENITOURINARY/GYNECOLOGICAL Hx Genitourinary Disorders: No - PSYCHIATRIC Hx Psychophysiologic Disorder: Yes Hx Anxiety: Yes - SURGICAL HISTORY Hx Surgeries: No - ANESTHESIA Hx Anesthesia: No Hx Anesthesia Reactions: No Hx Malignant Hyperthermia: No Has any member of the family had a problem w/ anesthesia?: No Meds Allergies/Adverse Reactions: Allergies Allergy/AdvReac Type Severity Reaction Status Date / Time No Known Allergies Allergy Verified 04/16/16 12:57 - Medications Medications: Current Medications Acetaminophen (Tylenol 650mg/20.3ml Solution Ud) 650 mg GT Q6 PRN PRN Reason: Temperature Last Admin: 12/24/18 10:31 Dose: 650 mg Aspirin (Aspirin Chewable) 81 mg PO DAILY [facility] Last Admin: 12/25/18 09:22 Dose: 81 mg Carvedilol (Coreg) 6.25 mg PO BID [facility] Stop: 12/26/18 14:00 Enoxaparin Sodium (Lovenox) 30 mg SC DAILY [facility] Last Admin: 12/26/18 10:26 Dose: 30 mg Hydrocortisone Sodium Succinate (Solu-Cortef) 50 mg IV Q12H [place] Last Admin: 12/26/18 09:08 Dose: 50 mg Meropenem 500 mg/ Sodium (Chloride) 100 mls @ 100 mls/hr IVPB Q8H [facility]; Protocol Last Admin: 12/26/18 09:15 Dose: 100 mls/hr Dexmedetomidine HCl 200 mcg/ (Sodium Chloride) 50 mls @ 3.54 mls/hr IV TITR PRN; Protocol PRN Reason: Agitation Last Titration: 12/26/18 10:26 Dose: 0.6 mcg/kg/hr, 10.61 mls/hr Insulin Aspart (Novolog) 0 unit SC Q6H [facility]; Protocol Last Admin: 12/26/18 06:35 Dose: Not Given Methimazole (Tapazole) 20 mg PO Q8H [facility] Last Admin: 12/26/18 09:19 Dose: 20 mg Pantoprazole Sodium (Protonix Inj) 40 mg IVP DAILY [facility] Last Admin: 12/26/18 09:08 Dose: 40 mg Propranolol HCl (Inderal) 20 mg PO TID [place] Rosuvastatin Calcium (Crestor) 10 mg PO HS [facility] Last Admin: 12/25/18 21:03 Dose: 10 mg Physical Exam - Constitutional Appears: No Acute Distress - Head Exam Head Exam: ATRAUMATIC, NORMOCEPHALIC - Eye Exam Eye Exam: PERRL. absent: Nystagmus Pupil Exam: Miosis Additional comments: tracking - ENT Exam ENT Exam: Mucous Membranes Dry - Respiratory Exam Respiratory Exam: Clear to Auscultation Bilateral, NORMAL BREATHING PATTERN Additional comments: intubated on PRVC - Cardiovascular Exam Cardiovascular Exam: Tachycardia, +S1, +S2 - GI/Abdominal Exam GI & Abdominal Exam: Normal Bowel Sounds, Soft. absent: Guarding, Rigid - Exam Additional comments: Perez in place - Extremities Exam Extremities exam: Positive for: normal capillary refill, pedal pulses present - Neurological Exam Neurological exam: Alert Additional comments: intubated and sedated - Psychiatric Exam Psychiatric exam: Flat Affect - Skin Skin Exam: Dry, Intact, Normal Color, Warm Results - Vital Signs Recent Vital Signs: Last Vital Signs Temp 98 F 12/26/18 07:56 Pulse 90 12/26/18 10:00 Resp 17 12/26/18 10:00 BP 168/96 H 12/26/18 09:49 Pulse Ox 100 12/26/18 10:00 - Labs Result Diagrams: 12/26/18 06:07 12/26/18 06:05 Labs: Laboratory Results - last 24 hr 12/24/18 12/25/18 12/25/18 17:54 06:11 06:11 WBC RBC Hgb Hct MCV MCH MCHC RDW Plt Count MPV Neut % (Auto) Lymph % (Auto) Sandoval % (Auto) Eos % (Auto) Baso % (Auto) Neut # (Auto) Lymph # (Auto) Sandoval # (Auto) Eos # (Auto) Baso # (Auto) PT INR APTT Puncture Site pCO2 pO2 HCO3 ABG pH ABG Total CO2 ABG O2 Saturation ABG Base Excess Howard Test A-a O2 Difference Respiratory Index Vent Mode Mechanical Rate FiO2 Tidal Volume PEEP Sodium Potassium Chloride Carbon Dioxide Anion Gap BUN Creatinine Est GFR ( Amer) Est GFR (Non-Af Amer) Random Glucose Calcium Phosphorus Magnesium Total Bilirubin AST ALT Alkaline Phosphatase Total Protein Albumin Globulin Albumin/Globulin Ratio Procalcitonin TSH 3rd Generation Urine HCG, Qual Hepatitis A IgM Ab Negative Hep Bs Antigen Negative Hep B Core IgM Ab Negative Hepatitis C Antibody Negative HIV 1&2 Antibody Screen Negative Ur L.pneumophila Ag Negative 12/26/18 12/26/18 12/26/18 05:30 06:05 06:05 WBC RBC Hgb Hct MCV MCH MCHC RDW Plt Count MPV Neut % (Auto) Lymph % (Auto) Sandoval % (Auto) Eos % (Auto) Baso % (Auto) Neut # (Auto) Lymph # (Auto) Sandoval # (Auto) Eos # (Auto) Baso # (Auto) PT INR APTT Puncture Site Rradial pCO2 36 pO2 115 H HCO3 27.1 ABG pH 7.47 H ABG Total CO2 27.3 ABG O2 Saturation 99.3 H ABG Base Excess 2.7 Howard Test Pos A-a O2 Difference 54.0 Respiratory Index 0.5 Vent Mode Prvc Mechanical Rate 20 FiO2 30.0 Tidal Volume 400 PEEP 5 Sodium 146 Potassium 4.2 Chloride 112 H Carbon Dioxide 27 Anion Gap 11 BUN 44 H Creatinine 1.3 H Est GFR ( Amer) 53 Est GFR (Non-Af Amer) 44 Random Glucose 168 H Calcium 8.1 L Phosphorus 4.2 Magnesium 2.0 Total Bilirubin 0.9 AST 43 H D ALT 129 H D Alkaline Phosphatase 71 Total Protein 5.8 L Albumin 2.8 L Globulin 3.0 Albumin/Globulin Ratio 0.9 L Procalcitonin 0.42 TSH 3rd Generation < 0.02 L Urine HCG, Qual Hepatitis A IgM Ab Hep Bs Antigen Hep B Core IgM Ab Hepatitis C Antibody HIV 1&2 Antibody Screen Ur L.pneumophila Ag 12/26/18 12/26/18 12/26/18 06:06 06:07 06:07 WBC 10.6 RBC 3.72 L Hgb 10.8 L Hct 32.9 L MCV 88.4 MCH 29.0 MCHC 32.8 L RDW 14.9 H Plt Count 108 L MPV 9.8 Neut % (Auto) 79.2 H Lymph % (Auto) 13.5 L Sandoval % (Auto) 7.0 Eos % (Auto) 0.2 Baso % (Auto) 0.1 Neut # (Auto) 8.4 H Lymph # (Auto) 1.4 Sandoval # (Auto) 0.7 Eos # (Auto) 0.0 Baso # (Auto) 0.0 PT 14.1 H INR 1.3 APTT 32 Puncture Site pCO2 pO2 HCO3 ABG pH ABG Total CO2 ABG O2 Saturation ABG Base Excess Howard Test A-a O2 Difference Respiratory Index Vent Mode Mechanical Rate FiO2 Tidal Volume PEEP Sodium Potassium Chloride Carbon Dioxide Anion Gap BUN Creatinine Est GFR ( Amer) Est GFR (Non-Af Amer) Random Glucose Calcium Phosphorus Magnesium Total Bilirubin AST ALT Alkaline Phosphatase Total Protein Albumin Globulin Albumin/Globulin Ratio Procalcitonin TSH 3rd Generation Urine HCG, Qual Negative Hepatitis A IgM Ab Hep Bs Antigen Hep B Core IgM Ab Hepatitis C Antibody HIV 1&2 Antibody Screen Ur L.pneumophila Ag Assessment & Plan - Assessment and Plan (Free Text) Assessment: 48yo F with PMH of HTN, TIA, asthma, and Grave's disease admitted for thyroid storm. Neuro was consulted for possible anoxic brain injury as patient coded 3 times of day of admission with ROSC being achieved in less than 10 minutes each time. Patient remains intubated since admission.
--- NOTE | 2018-12-26 12:00 | CP.PCM.PN ---
Subjective - Date & Time of Evaluation Date of Evaluation: 12/26/18 Time of Evaluation: 12:00 - Subjective Subjective: Remains intubated difficult to assess level of alertness Neuro eval in progress Objective - Vital Signs/Intake and Output Vital Signs (last 24 hours): Temp Pulse Resp BP Pulse Ox 98 F 89 20 162/96 H 100 12/26/18 07:56 12/26/18 11:18 12/26/18 11:18 12/26/18 11:18 12/26/18 11:18 Intake and Output: 12/26/18 12/26/18 06:59 18:59 Intake Total 1420.2 192.43 Output Total 1390 500 Balance 30.2 -307.57 - Medications Medications: Current Medications Acetaminophen (Tylenol 650mg/20.3ml Solution Ud) 650 mg GT Q6 PRN PRN Reason: Temperature Last Admin: 12/24/18 10:31 Dose: 650 mg Aspirin (Aspirin Chewable) 81 mg PO DAILY [facility] Last Admin: 12/25/18 09:22 Dose: 81 mg Carvedilol (Coreg) 6.25 mg PO BID [facility] Stop: 12/26/18 14:00 Enoxaparin Sodium (Lovenox) 30 mg SC DAILY [facility] Last Admin: 12/26/18 10:26 Dose: 30 mg Hydrocortisone Sodium Succinate (Solu-Cortef) 50 mg IV Q12H [place] Last Admin: 12/26/18 09:08 Dose: 50 mg Meropenem 500 mg/ Sodium (Chloride) 100 mls @ 100 mls/hr IVPB Q8H [place]; Protocol Last Admin: 12/26/18 09:15 Dose: 100 mls/hr Dexmedetomidine HCl 200 mcg/ (Sodium Chloride) 50 mls @ 3.54 mls/hr IV TITR PRN; Protocol PRN Reason: Agitation Last Titration: 12/26/18 10:26 Dose: 0.6 mcg/kg/hr, 10.61 mls/hr Insulin Aspart (Novolog) 0 unit SC Q6H [place]; Protocol Last Admin: 12/26/18 11:24 Dose: Not Given Methimazole (Tapazole) 20 mg PO Q8H [place] Last Admin: 12/26/18 09:19 Dose: 20 mg Pantoprazole Sodium (Protonix Inj) 40 mg IVP DAILY [facility] Last Admin: 12/26/18 09:08 Dose: 40 mg Propranolol HCl (Inderal) 20 mg PO TID [place] Rosuvastatin Calcium (Crestor) 10 mg PO HS [place] Last Admin: 12/25/18 21:03 Dose: 10 mg - Labs Labs: 12/26/18 06:07 12/26/18 06:05 PT 14.1 SECONDS (9.7-12.2) H 12/26/18 06:07 INR 1.3 12/26/18 06:07 APTT 32 SECONDS (21-34) 12/26/18 06:07 - Constitutional Appears: Chronically Ill - Head Exam Head Exam: ATRAUMATIC, NORMAL INSPECTION, NORMOCEPHALIC - Eye Exam Eye Exam: absent: Scleral icterus - Respiratory Exam Respiratory Exam: Decreased Breath Sounds (bases). absent: NORMAL BREATHING PATTERN (intubated) - Cardiovascular Exam Cardiovascular Exam: Tachycardia, +S1, +S2. absent: Gallop - GI/Abdominal Exam GI & Abdominal Exam: Soft. absent: Tenderness - Extremities Exam Extremities Exam: absent: Pedal Edema - Neurological Exam Neurological Exam: absent: Altered - Skin Skin Exam: Normal Color, Warm Assessment and Plan - Assessment and Plan (Free Text) Assessment: Non compliant 48 y/o Thyroid storm Severe metabolic acidosis TANVI probably ATN Shock liver Hyperkalemia: resolved Acute respiratory failure due to above: s/p intubation Toxic/metobolic encepholopathy Likely metabolic/hypoxemic cardiac arrest manifested as profound bradycardia: requiring CPR to gain ROSC ECHO: directly viewed by me: mod-severe LV dysfunction global hypokinesia LVH RVE and moderate RV dysfunction Mild-mod inc in PASP dilated IVC and reduced compliance c/w inc JVP Mod TR, Mild MR, trace AI Grade 1 diastolic dysfunction PLAN: 48 year old female with respirtory failure on ventilator on FiO2 30% trying to wean off vent based on neuro recovery Severe biventricular failure currently euvolemic, Continue coreg and propanalol Hypovolemic improved with BP elevated at present TANVI impring: monitor lytes Hyperthyroid on tapazole and beta blockers PEG/TRACH: family reluctant to progress to trach and PEG Supportive care
--- NOTE | 2018-12-26 12:00 | CP.PCM.PN ---
Subjective - Date & Time of Evaluation Date of Evaluation: 12/26/18 Time of Evaluation: 08:00 - Subjective Subjective: remains intubated Objective - Vital Signs/Intake and Output Vital Signs (last 24 hours): Temp Pulse Resp BP Pulse Ox 98 F 89 20 162/96 H 100 12/26/18 07:56 12/26/18 11:18 12/26/18 11:18 12/26/18 11:18 12/26/18 11:18 Intake and Output: 12/26/18 12/26/18 06:59 18:59 Intake Total 1420.2 192.43 Output Total 1390 500 Balance 30.2 -307.57 - Medications Medications: Current Medications Acetaminophen (Tylenol 650mg/20.3ml Solution Ud) 650 mg GT Q6 PRN PRN Reason: Temperature Last Admin: 12/24/18 10:31 Dose: 650 mg Aspirin (Aspirin Chewable) 81 mg PO DAILY [facility] Last Admin: 12/25/18 09:22 Dose: 81 mg Carvedilol (Coreg) 6.25 mg PO BID [facility] Stop: 12/26/18 14:00 Enoxaparin Sodium (Lovenox) 30 mg SC DAILY [facility] Last Admin: 12/26/18 10:26 Dose: 30 mg Hydrocortisone Sodium Succinate (Solu-Cortef) 50 mg IV Q12H [place] Last Admin: 12/26/18 09:08 Dose: 50 mg Meropenem 500 mg/ Sodium (Chloride) 100 mls @ 100 mls/hr IVPB Q8H [facility]; Protocol Last Admin: 12/26/18 09:15 Dose: 100 mls/hr Dexmedetomidine HCl 200 mcg/ (Sodium Chloride) 50 mls @ 3.54 mls/hr IV TITR PRN; Protocol PRN Reason: Agitation Last Titration: 12/26/18 10:26 Dose: 0.6 mcg/kg/hr, 10.61 mls/hr Insulin Aspart (Novolog) 0 unit SC Q6H [facility]; Protocol Last Admin: 12/26/18 11:24 Dose: Not Given Methimazole (Tapazole) 20 mg PO Q8H [place] Last Admin: 12/26/18 09:19 Dose: 20 mg Pantoprazole Sodium (Protonix Inj) 40 mg IVP DAILY [facility] Last Admin: 12/26/18 09:08 Dose: 40 mg Propranolol HCl (Inderal) 20 mg PO TID [facility] Rosuvastatin Calcium (Crestor) 10 mg PO HS [facility] Last Admin: 12/25/18 21:03 Dose: 10 mg - Labs Labs: 12/26/18 06:07 12/26/18 06:05 PT 14.1 SECONDS (9.7-12.2) H 12/26/18 06:07 INR 1.3 12/26/18 06:07 APTT 32 SECONDS (21-34) 12/26/18 06:07 - Constitutional Appears: Confused - Head Exam Head Exam: NORMOCEPHALIC (xx) - ENT Exam ENT Exam: Mucous Membranes Dry - Neck Exam Neck Exam: absent: Lymphadenopathy - Respiratory Exam Respiratory Exam: Decreased Breath Sounds - Cardiovascular Exam Cardiovascular Exam: REGULAR RHYTHM - GI/Abdominal Exam GI & Abdominal Exam: Distended - Rectal Exam Rectal Exam: Deferred - Exam Exam: NORMAL INSPECTION - Extremities Exam Extremities Exam: absent: Pedal Edema - Back Exam Back Exam: absent: paraspinal tenderness - Neurological Exam Neurological Exam: Altered - Psychiatric Exam Psychiatric exam: Depressed - Skin Skin Exam: Dry Assessment and Plan (1) Fever Status: Acute (2) TANVI (acute kidney injury) Status: Acute (3) Cardiac arrest Status: Acute (4) Cardiomyopathy Status: Acute (5) Thyrotoxicosis Status: Acute - Assessment and Plan (Free Text) Assessment: 48F currently in ICU with ventilator dependent respiratory distress. Patient has a hx of Graves disease, TIA and anxiety. She underwent 3 cardiac arrest during this admission. ID consulted for antibiotic management
--- NOTE | 2018-12-26 13:50 | CP.PCM.PN ---
Subjective - Date & Time of Evaluation Date of Evaluation: 12/26/18 Time of Evaluation: 13:48 - Subjective Subjective: Nephrology Consultation Note: Assessment: Stable Non-oliguric Acute Kidney Injury (N17.9) likely due to renal hypoperfusion due to cardiac arrest/hypotension leading to ATN, had exposure to IV contrast in addition: IMPROVING uncontrolled severe HTN hypokalemia, hyperkalemia, HAGMA/lactic acidosis hypertension (years) obesity hyperthyroidism thyroid storm, cardiac arrest s/p resuscitation BiV failure with LVEF 15%, sepsis Plan No acute need for renal replacement therapy at this time. Hypertension control with meds as ordered. Maintain hemodynamics stable. Avoid hypotension. Patient not on ACEI/ARB due to recent TANVI. agree with beta-blockers Monitor Input/Output, daily weights and renal function with basic metabolic panel lasix prn to maintain euvolemia as tolerated by BP supplement lytes as needed endocrine and cardiology following renal sono once she is stable Dose meds/antibiotics for improved GFR. Glycemic control Further work up/management as per primary team Thanks for allowing me to participate in care of your patient. Will follow patient with you. Please call if any Qs. had d/w team Dr Darshan Call Office: [phone] Chief Complaint; unable Reason for consult: Acute Kidney Injury HPI: Pt is a 48 F with hx of hypertension (years) obesity hyperthyroidism presented with complaints of pain abdomen and found to have thyroid storm, cardiac arrest s/p resuscitation, foudn to have BiV failure with LVEF 15%, sepsis and also with TANVI hence renal consulted no known OTC/herbal meds or NSAIDs Noted recent iodinated contrast exposure as CTA. Noted obvious episodes of low BP. ROS: unable to obtain from pt. pt intubated Physical Examination: General Appearance: Comfortable, in no acute respiratory distress, ill appearing intubated Vitals reviewed and noted as below Head; Atraumatic, normocephalic ENT: no ulcers no thrush. Tongue is midline. Oropharynx: no rash or ulcers. EYES: Pupils are equal, round and sluggish to light accommodation. Eye muscles and extraocular movement intact. Sclera is anicteric. Neck; supple no lymphadenopathy, gross thyromegaly noted Lungs: Normal respiratory rate/effort. Breath sounds reduced at bases Heart: Increased rate. s1s2 normal. No rub or gallop. Extremities: no edema. No varicose veins Neurological: Patient is awake but not able to follow commands much Skin: Warm and dry. Normal turgor. No rash. Palpitation: Normal elasticity for age Abdomen: Abdomen is soft. Bowel sounds +. There is no abdominal tenderness, no guarding/rigidity no organomegaly Psych: unable MSK: no joint tenderness or swelling. Digits and nails normal, no deformity : kidney or bladder not palpable Labs/imaging reviewed. Past medical history, past surgical history, family history, social history, allergy reviewed and noted as below Family hx: no hx of CKD. Rest non-contributory Objective - Vital Signs/Intake and Output Vital Signs (last 24 hours): Temp Pulse Resp BP Pulse Ox 99.9 F H 94 H 24 149/88 100 12/26/18 12:00 12/26/18 13:02 12/26/18 13:02 12/26/18 13:02 12/26/18 13:02 Intake and Output: 12/26/18 12/26/18 06:59 18:59 Intake Total 1420.2 233.06 Output Total 1390 650 Balance 30.2 -416.94 - Medications Medications: Current Medications Acetaminophen (Tylenol 650mg/20.3ml Solution Ud) 650 mg GT Q6 PRN PRN Reason: Temperature Last Admin: 12/24/18 10:31 Dose: 650 mg Aspirin (Aspirin Chewable) 81 mg PO DAILY [facility] Last Admin: 12/25/18 09:22 Dose: 81 mg Carvedilol (Coreg) 6.25 mg PO BID [facility] Stop: 12/26/18 14:00 Enoxaparin Sodium (Lovenox) 30 mg SC DAILY [facility] Last Admin: 12/26/18 10:26 Dose: 30 mg Hydrocortisone Sodium Succinate (Solu-Cortef) 50 mg IV Q12H [facility] Last Admin: 12/26/18 09:08 Dose: 50 mg Meropenem 500 mg/ Sodium (Chloride) 100 mls @ 100 mls/hr IVPB Q8H [facility]; Protocol Last Admin: 12/26/18 09:15 Dose: 100 mls/hr Dexmedetomidine HCl 200 mcg/ (Sodium Chloride) 50 mls @ 3.54 mls/hr IV TITR PRN; Protocol PRN Reason: Agitation Last Titration: 12/26/18 10:26 Dose: 0.6 mcg/kg/hr, 10.61 mls/hr Insulin Aspart (Novolog) 0 unit SC Q6H [facility]; Protocol Last Admin: 12/26/18 11:24 Dose: Not Given Methimazole (Tapazole) 20 mg PO Q8H [facility] Last Admin: 12/26/18 09:19 Dose: 20 mg Pantoprazole Sodium (Protonix Inj) 40 mg IVP DAILY [facility] Last Admin: 12/26/18 09:08 Dose: 40 mg Propranolol HCl (Inderal) 20 mg PO TID [place] Rosuvastatin Calcium (Crestor) 10 mg PO HS [facility] Last Admin: 12/25/18 21:03 Dose: 10 mg - Labs Labs: 12/26/18 06:07 12/26/18 06:05 PT 14.1 SECONDS (9.7-12.2) H 12/26/18 06:07 INR 1.3 12/26/18 06:07 APTT 32 SECONDS (21-34) 12/26/18 06:07
--- NOTE | 2018-12-26 14:37 | CP.PCM.PN ---
<Ivis Morrison - Last Filed: 12/26/18 15:41> Subjective - Date & Time of Evaluation Date of Evaluation: 12/26/18 Time of Evaluation: 14:00 - Subjective Subjective: PGY-1 Neuro Progress Note for Dr. Babb Patient was seen and examined today in no acute distress with parents at bedside. Nurse reports no overnight events. Patient remains intubated and sedated, so she is unable to participate in interview or answer ROS. Objective - Vital Signs/Intake and Output Vital Signs (last 24 hours): Temp Pulse Resp BP Pulse Ox 99.9 F H 94 H 24 149/88 100 12/26/18 12:00 12/26/18 13:02 12/26/18 13:02 12/26/18 13:02 12/26/18 13:02 Intake and Output: 12/26/18 12/26/18 06:59 18:59 Intake Total 1420.2 655.69 Output Total 1390 800 Balance 30.2 -144.31 - Medications Medications: Current Medications Acetaminophen (Tylenol 650mg/20.3ml Solution Ud) 650 mg GT Q6 PRN PRN Reason: Temperature Last Admin: 12/24/18 10:31 Dose: 650 mg Aspirin (Aspirin Chewable) 81 mg PO DAILY [facility] Last Admin: 12/25/18 09:22 Dose: 81 mg Enoxaparin Sodium (Lovenox) 30 mg SC DAILY [facility] Last Admin: 12/26/18 10:26 Dose: 30 mg Hydrocortisone Sodium Succinate (Solu-Cortef) 50 mg IV Q12H [facility] Last Admin: 12/26/18 09:08 Dose: 50 mg Meropenem 500 mg/ Sodium (Chloride) 100 mls @ 100 mls/hr IVPB Q8H [facility]; Protocol Last Admin: 12/26/18 09:15 Dose: 100 mls/hr Dexmedetomidine HCl 200 mcg/ (Sodium Chloride) 50 mls @ 3.54 mls/hr IV TITR PRN; Protocol PRN Reason: Agitation Last Admin: 12/26/18 13:50 Dose: 0.6 mcg/kg/hr, 10.61 mls/hr Insulin Aspart (Novolog) 0 unit SC Q6H [facility]; Protocol Last Admin: 12/26/18 11:24 Dose: Not Given Methimazole (Tapazole) 20 mg PO Q8H [facility] Last Admin: 12/26/18 09:19 Dose: 20 mg Pantoprazole Sodium (Protonix Inj) 40 mg IVP DAILY [facility] Last Admin: 12/26/18 09:08 Dose: 40 mg Propranolol HCl (Inderal) 20 mg PO TID [facility] Last Admin: 12/26/18 13:50 Dose: 20 mg Rosuvastatin Calcium (Crestor) 10 mg PO HS [facility] Last Admin: 12/25/18 21:03 Dose: 10 mg - Labs Labs: 12/26/18 06:07 12/26/18 06:05 PT 14.1 SECONDS (9.7-12.2) H 12/26/18 06:07 INR 1.3 12/26/18 06:07 APTT 32 SECONDS (21-34) 12/26/18 06:07 - Constitutional Appears: No Acute Distress - Head Exam Head Exam: ATRAUMATIC, NORMOCEPHALIC - Eye Exam Eye Exam: PERRL. absent: Nystagmus Pupil Exam: Miosis Additional comments: tracking and blinking on command - ENT Exam ENT Exam: Mucous Membranes Dry - Respiratory Exam Respiratory Exam: Clear to Ausculation Bilateral, NORMAL BREATHING PATTERN Additional comments: intubated on PRVC - Cardiovascular Exam Cardiovascular Exam: Tachycardia, +S1, +S2 - GI/Abdominal Exam GI & Abdominal Exam: Soft, Normal Bowel Sounds. absent: Guarding, Rigid - Exam Additional comments: Perez in place - Extremities Exam Extremities Exam: Normal Capillary Refill Additional comments: pulses palpable bilaterally (radial, DP) bilateral pressure off loading boots - Neurological Exam Neurological Exam: Awake Additional comments: remains intubated and sedated did not hold against gravity on muscle strength testing; unclear if unable to process command or muscle weakness - Psychiatric Exam Psychiatric exam: Flat Affect - Skin Skin Exam: Dry, Intact, Normal Color, Warm Assessment and Plan - Assessment and Plan (Free Text) Assessment: 48yo F with PMH of HTN, TIA, asthma, and Grave's disease admitted for thyroid storm. Neuro was consulted for possible anoxic brain injury as patient coded 3 times of day of admission with ROSC being achieved in less than 10 minutes each time. Patient remains intubated since admission. Plan: Probable Anoxic Brain Injury EEG monitoring shows no seizure activity, but generalized suppression Patient is tracking and moving all 4 extremities. Patient is neurologically stable. Will be able to determine more with MRI once extubated. pablito/w Dr. Holley Morrison PGY-1 <Maged Babb - Last Filed: 12/26/18 15:54> Objective - Vital Signs/Intake and Output Vital Signs (last 24 hours): Temp Pulse Resp BP Pulse Ox 99.9 F H 94 H 21 154/87 H 100 12/26/18 12:00 12/26/18 15:00 12/26/18 15:00 12/26/18 14:02 12/26/18 15:00 Intake and Output: 12/26/18 12/26/18 06:59 18:59 Intake Total 1420.2 736.8 Output Total 1390 950 Balance 30.2 -213.2 - Medications Medications: Current Medications Acetaminophen (Tylenol 650mg/20.3ml Solution Ud) 650 mg GT Q6 PRN PRN Reason: Temperature Last Admin: 12/24/18 10:31 Dose: 650 mg Aspirin (Aspirin Chewable) 81 mg PO DAILY [facility] Last Admin: 12/25/18 09:22 Dose: 81 mg Enoxaparin Sodium (Lovenox) 30 mg SC DAILY [facility] Last Admin: 12/26/18 10:26 Dose: 30 mg Hydrocortisone Sodium Succinate (Solu-Cortef) 50 mg IV Q12H [facility] Last Admin: 12/26/18 09:08 Dose: 50 mg Meropenem 500 mg/ Sodium (Chloride) 100 mls @ 100 mls/hr IVPB Q8H [facility]; Protocol Last Admin: 12/26/18 09:15 Dose: 100 mls/hr Dexmedetomidine HCl 200 mcg/ (Sodium Chloride) 50 mls @ 3.54 mls/hr IV TITR PRN; Protocol PRN Reason: Agitation Last Admin: 12/26/18 13:50 Dose: 0.6 mcg/kg/hr, 10.61 mls/hr Insulin Aspart (Novolog) 0 unit SC Q6H [facility]; Protocol Last Admin: 12/26/18 11:24 Dose: Not Given Methimazole (Tapazole) 20 mg PO Q8H [facility] Last Admin: 12/26/18 09:19 Dose: 20 mg Pantoprazole Sodium (Protonix Inj) 40 mg IVP DAILY [facility] Last Admin: 12/26/18 09:08 Dose: 40 mg Propranolol HCl (Inderal) 20 mg PO TID [facility] Last Admin: 12/26/18 13:50 Dose: 20 mg Rosuvastatin Calcium (Crestor) 10 mg PO HS [facility] Last Admin: 12/25/18 21:03 Dose: 10 mg - Labs Labs: 12/26/18 06:07 12/26/18 06:05 PT 14.1 SECONDS (9.7-12.2) H 12/26/18 06:07 INR 1.3 12/26/18 06:07 APTT 32 SECONDS (21-34) 12/26/18 06:07 Attending/Attestation - Attestation I have personally seen and examined this patient.: Yes I have fully participated in the care of the patient.: Yes I have reviewed all pertinent clinical information, including history, physical exam and plan: Yes Notes (Text): I agree with the assessment and plan. The patient appears to be moving all extremities and is following some simple commands. MRI of the brain is recommended after extubation.
--- NOTE | 2018-12-26 16:58 | CP.PCM.PCO ---
Physician Communication Note - Physician Communication Note Physician Communication Note: family refusing trach; surgery to s/o. reconsult if needed
--- NOTE | 2018-12-26 18:15 | CP.PCM.CON ---
History of Present Illness - History of Present Illness History of Present Illness: Neurology consult called by Dr. Arun Nunez. Miss Barnhart is a 48 yr old woman who was admitted to the [facility] on Wednesday, with pmh of hypertension, hypothyroid, and past stroke, presented initially to [facility] on the with severe abdominal pain, with hypertension, and in shock. Patient was about to be transferred to the ICU when she underwent a Code Blue and she regained circulation in 4 minutes. After intubation, she began to wake up , and subsequently had two further cardiac arrest. ECho done bedside showed severely diminshed LV function, and she was started on heparin drip. Neurology consult was called today to evaluate patients continued inability to regain consciousness and prognosis. ROS: not obtainable due to level of consciousness. PMH/PSH : Htn, Hyperthyroidism, stroke. FH/SH: Grandfather has testicular cancer, grandmother stroke, and DM All: nkda. On exam: Patient is intubated and sedated, with mild sedation. HOwever, she still has corneals, gag, and dolls eyes. She withdraws to pain bilaterally. There are no focal movements. +1 dtr ul and ll bl. no clonus. Past Patient History - Infectious Disease Hx of Infectious Diseases: None - Past Medical History & Family History Past Medical History?: Yes - Past Social History Smoking Status: Never Smoked - CARDIAC Hx Cardiac Disorders: Yes Hx Hypertension: Yes - PULMONARY Hx Respiratory Disorders: Yes Hx Asthma: Yes - NEUROLOGICAL Hx Neurological Disorder: No - HEENT Hx HEENT Problems: Yes Other/Comment: uses glasses for reading - RENAL Hx Chronic Kidney Disease: No - ENDOCRINE/METABOLIC Hx Hypothyroidism: Yes - HEMATOLOGICAL/ONCOLOGICAL Hx Blood Disorders: No - INTEGUMENTARY Hx Dermatological Problems: No - MUSCULOSKELETAL/RHEUMATOLOGICAL Hx Musculoskeletal Disorders: Yes Hx Falls: Yes - GASTROINTESTINAL Hx Gastrointestinal Disorders: No - GENITOURINARY/GYNECOLOGICAL Hx Genitourinary Disorders: No - PSYCHIATRIC Hx Psychophysiologic Disorder: Yes Hx Anxiety: Yes - SURGICAL HISTORY Hx Surgeries: No - ANESTHESIA Hx Anesthesia: No Hx Anesthesia Reactions: No Hx Malignant Hyperthermia: No Has any member of the family had a problem w/ anesthesia?: No Meds Allergies/Adverse Reactions: Allergies Allergy/AdvReac Type Severity Reaction Status Date / Time No Known Allergies Allergy Verified 04/16/16 12:57 - Medications Medications: Current Medications Acetaminophen (Tylenol 650mg/20.3ml Solution Ud) 650 mg GT Q6 PRN PRN Reason: Temperature Last Admin: 12/24/18 10:31 Dose: 650 mg Aspirin (Aspirin Chewable) 81 mg PO DAILY [facility] Last Admin: 12/25/18 09:22 Dose: 81 mg Enoxaparin Sodium (Lovenox) 30 mg SC DAILY [facility] Last Admin: 12/26/18 10:26 Dose: 30 mg Hydrocortisone Sodium Succinate (Solu-Cortef) 50 mg IV Q12H [facility] Last Admin: 12/26/18 09:08 Dose: 50 mg Meropenem 500 mg/ Sodium (Chloride) 100 mls @ 100 mls/hr IVPB Q8H [facility]; Protocol Last Admin: 12/26/18 17:23 Dose: 100 mls/hr Dexmedetomidine HCl 200 mcg/ (Sodium Chloride) 50 mls @ 3.54 mls/hr IV TITR PRN; Protocol PRN Reason: Agitation Last Admin: 12/26/18 13:50 Dose: 0.6 mcg/kg/hr, 10.61 mls/hr Insulin Aspart (Novolog) 0 unit SC Q6H [facility]; Protocol Last Admin: 12/26/18 18:05 Dose: 1 u Methimazole (Tapazole) 20 mg PO Q8H [facility] Last Admin: 12/26/18 17:22 Dose: 20 mg Pantoprazole Sodium (Protonix Inj) 40 mg IVP DAILY [facility] Last Admin: 12/26/18 09:08 Dose: 40 mg Propranolol HCl (Inderal) 20 mg PO TID [facility] Last Admin: 12/26/18 17:22 Dose: 20 mg Rosuvastatin Calcium (Crestor) 10 mg PO HS [facility] Last Admin: 12/25/18 21:03 Dose: 10 mg Results - Vital Signs Recent Vital Signs: Last Vital Signs Temp 99.9 F H 12/26/18 12:00 Pulse 94 H 12/26/18 15:00 Resp 21 12/26/18 15:00 BP 154/87 H 12/26/18 14:02 Pulse Ox 100 12/26/18 15:00 - Labs Result Diagrams: 12/26/18 06:07 12/26/18 06:05 Labs: Laboratory Results - last 24 hr 12/25/18 12/25/18 12/26/18 06:11 06:11 05:30 WBC RBC Hgb Hct MCV MCH MCHC RDW Plt Count MPV Neut % (Auto) Lymph % (Auto) [place] % (Auto) Eos % (Auto) Baso % (Auto) Neut # (Auto) Lymph # (Auto) [place] # (Auto) Eos # (Auto) Baso # (Auto) PT INR APTT Puncture Site Rradial pCO2 36 pO2 115 H HCO3 27.1 ABG pH 7.47 H ABG Total CO2 27.3 ABG O2 Saturation 99.3 H ABG Base Excess 2.7 Howard Test Pos A-a O2 Difference 54.0 Respiratory Index 0.5 Vent Mode Prvc Mechanical Rate 20 FiO2 30.0 Tidal Volume 400 PEEP 5 Sodium Potassium Chloride Carbon Dioxide Anion Gap BUN Creatinine Est GFR ( Amer) Est GFR (Non-Af Amer) Random Glucose Calcium Phosphorus Magnesium Total Bilirubin AST ALT Alkaline Phosphatase Total Protein Albumin Globulin Albumin/Globulin Ratio Procalcitonin TSH 3rd Generation Urine HCG, Qual Hepatitis A IgM Ab Negative Hep Bs Antigen Negative Hep B Core IgM Ab Negative Hepatitis C Antibody Negative HIV 1&2 Antibody Screen Negative 12/26/18 12/26/18 12/26/18 06:05 06:05 06:06 WBC RBC Hgb Hct MCV MCH MCHC RDW Plt Count MPV Neut % (Auto) Lymph % (Auto) [place] % (Auto) Eos % (Auto) Baso % (Auto) Neut # (Auto) Lymph # (Auto) [place] # (Auto) Eos # (Auto) Baso # (Auto) PT INR APTT Puncture Site pCO2 pO2 HCO3 ABG pH ABG Total CO2 ABG O2 Saturation ABG Base Excess Howard Test A-a O2 Difference Respiratory Index Vent Mode Mechanical Rate FiO2 Tidal Volume PEEP Sodium 146 Potassium 4.2 Chloride 112 H Carbon Dioxide 27 Anion Gap 11 BUN 44 H Creatinine 1.3 H Est GFR ( Amer) 53 Est GFR (Non-Af Amer) 44 Random Glucose 168 H Calcium 8.1 L Phosphorus 4.2 Magnesium 2.0 Total Bilirubin 0.9 AST 43 H D ALT 129 H D Alkaline Phosphatase 71 Total Protein 5.8 L Albumin 2.8 L Globulin 3.0 Albumin/Globulin Ratio 0.9 L Procalcitonin 0.42 TSH 3rd Generation < 0.02 L Urine HCG, Qual Negative Hepatitis A IgM Ab Hep Bs Antigen Hep B Core IgM Ab Hepatitis C Antibody HIV 1&2 Antibody Screen 12/26/18 12/26/18 06:07 06:07 WBC 10.6 RBC 3.72 L Hgb 10.8 L Hct 32.9 L MCV 88.4 MCH 29.0 MCHC 32.8 L RDW 14.9 H Plt Count 108 L MPV 9.8 Neut % (Auto) 79.2 H Lymph % (Auto) 13.5 L [place] % (Auto) 7.0 Eos % (Auto) 0.2 Baso % (Auto) 0.1 Neut # (Auto) 8.4 H Lymph # (Auto) 1.4 [place] # (Auto) 0.7 Eos # (Auto) 0.0 Baso # (Auto) 0.0 PT 14.1 H INR 1.3 APTT 32 Puncture Site pCO2 pO2 HCO3 ABG pH ABG Total CO2 ABG O2 Saturation ABG Base Excess Howard Test A-a O2 Difference Respiratory Index Vent Mode Mechanical Rate FiO2 Tidal Volume PEEP Sodium Potassium Chloride Carbon Dioxide Anion Gap BUN Creatinine Est GFR ( Amer) Est GFR (Non-Af Amer) Random Glucose Calcium Phosphorus Magnesium Total Bilirubin AST ALT Alkaline Phosphatase Total Protein Albumin Globulin Albumin/Globulin Ratio Procalcitonin TSH 3rd Generation Urine HCG, Qual Hepatitis A IgM Ab Hep Bs Antigen Hep B Core IgM Ab Hepatitis C Antibody HIV 1&2 Antibody Screen Assessment & Plan - Assessment and Plan (Free Text) Assessment: A/P: Patient with several cardiac arrests and anoxic encephalopathy whose level of neurological functioning will need to be assessed. Prognosis is poor. 1. Video EEG for 24 hours to assess prognosis. 2. No antiepileptic medications for now Our team will follow Thank you Dr. Gill Neurology
--- NOTE | 2018-12-26 20:32 | CP.PCM.PN ---
Subjective - Date & Time of Evaluation Date of Evaluation: 12/26/18 - Subjective Subjective: patient examined at bedside no fever, no vomiting, no diarrhea Objective - Vital Signs/Intake and Output Vital Signs (last 24 hours): Temp Pulse Resp BP Pulse Ox 98.9 F 116 H 20 126/71 99 12/26/18 20:00 12/26/18 20:00 12/26/18 20:00 12/26/18 19:52 12/26/18 20:00 Intake and Output: 12/26/18 12/27/18 18:59 06:59 Intake Total 1158.6 81.2 Output Total 1610 330 Balance -451.4 -248.8 - Medications Medications: Current Medications Acetaminophen (Tylenol 650mg/20.3ml Solution Ud) 650 mg GT Q6 PRN PRN Reason: Temperature Last Admin: 12/24/18 10:31 Dose: 650 mg Aspirin (Aspirin Chewable) 81 mg PO DAILY [facility] Last Admin: 12/25/18 09:22 Dose: 81 mg Enoxaparin Sodium (Lovenox) 30 mg SC DAILY [facility] Last Admin: 12/26/18 10:26 Dose: 30 mg Hydrocortisone Sodium Succinate (Solu-Cortef) 50 mg IV Q12H [facility] Last Admin: 12/26/18 09:08 Dose: 50 mg Meropenem 500 mg/ Sodium (Chloride) 100 mls @ 100 mls/hr IVPB Q8H [facility]; Protocol Last Admin: 12/26/18 17:23 Dose: 100 mls/hr Dexmedetomidine HCl 200 mcg/ (Sodium Chloride) 50 mls @ 3.54 mls/hr IV TITR PRN; Protocol PRN Reason: Agitation Last Admin: 12/26/18 19:13 Dose: 0.6 mcg/kg/hr, 10.61 mls/hr Insulin Aspart (Novolog) 0 unit SC Q6H [facility]; Protocol Last Admin: 12/26/18 18:05 Dose: 1 u Methimazole (Tapazole) 20 mg PO Q8H [facility] Last Admin: 12/26/18 17:22 Dose: 20 mg Pantoprazole Sodium (Protonix Inj) 40 mg IVP DAILY [facility] Last Admin: 12/26/18 09:08 Dose: 40 mg Propranolol HCl (Inderal) 20 mg PO TID [facility] Last Admin: 12/26/18 17:22 Dose: 20 mg Rosuvastatin Calcium (Crestor) 10 mg PO HS [facility] Last Admin: 12/25/18 21:03 Dose: 10 mg - Labs Labs: 12/26/18 06:07 12/26/18 06:05 PT 14.1 SECONDS (9.7-12.2) H 12/26/18 06:07 INR 1.3 12/26/18 06:07 APTT 32 SECONDS (21-34) 12/26/18 06:07 - Constitutional Appears: Well - Head Exam Head Exam: ATRAUMATIC, NORMAL INSPECTION, NORMOCEPHALIC - Eye Exam Eye Exam: EOMI, Normal appearance, PERRL Pupil Exam: NORMAL ACCOMODATION, PERRL - ENT Exam ENT Exam: Mucous Membranes Moist, Normal Exam - Respiratory Exam Respiratory Exam: Decreased Breath Sounds - Cardiovascular Exam Cardiovascular Exam: REGULAR RHYTHM, +S1, +S2 - GI/Abdominal Exam GI & Abdominal Exam: Soft, Diminished Bowel Sounds - Rectal Exam Rectal Exam: Deferred Assessment and Plan - Assessment and Plan (Free Text) Plan: labs and xray reviewed dw with staff Novolog propranolol lovenox pantoprazole
--- NOTE | 2018-12-26 21:30 | PN ---
DATE: 12/26/2018 ENDOCRINOLOGY FOLLOWUP NOTE LOCATION: Room 18, in the ICU. SUBJECTIVE: This is a 48-year-old female with recent acute respiratory failure. Currently remaining endotracheally intubated and sedated and is now being followed closely for metabolic management. She remains clinically euthyroid at this time and the repeat thyroid studies done two days ago showed the T4 of 13.8 mcg/dL with a TSH of 0.02 and free T4 of 5.67. The latest serum cortisol level was 23.2 mcg/dL. Her chemistry showed a BUN of 44, sodium 146, potassium 4.2, chloride 112, CO2 of 27, glucose 168, and creatinine 1.3. PLAN OF MANAGEMENT: So at this time, we will continue the modified medical therapy with Tapazole given as 20 mg every 8 hours as ordered. We will also continue the much lower hydrocortisone given as 50 mg every 12 hours as ordered and modified. We will obtain serial chemistries and supplement accordingly as needed. We will also obtain serial thyroid studies and serum cortisol level and adjust the dose regimen accordingly. We will follow. Linda Weaver MD
[2018-12-27] MEDS: (Novolog) Insulin Aspart, Recombinant 100 u/ml 10 ml vial SC SCH ×4 (00:45→19:19)
[2018-12-27] MEDS: Meropenem 500 MG in Sodium Chloride 0.9% 100 ML IVPB SCH ×3 (01:19→17:33)
--- NOTE | 2018-12-27 01:35 | CARD ---
APPROVED REPORT Date of service: 12/24/2018 EKG Measurement Heart [id number] <Conclusion> Sinus tachycardia Otherwise normal ECG
[2018-12-27] MEDS: Dexmedetomidine Hydrochloride 200 MCG in Sodium Chloride 0.9% 48 ML IV PRN ×2 (04:21→11:04)
[2018-12-27 05:57] LABS: BASO % 0.2 % (0.0-2.0); EOS % 0.1 % (0.0-4.0); HEMOGLOBIN 11.1 g/dL (11.0-16.0); LYMPH # 1.7 K/uL (1.0-4.3); LYMPH % 15.3 % (20.0-40.0); MEAN CELL VOLUME 88.5 fL (81.0-99.0); MEAN CORPUSCULAR HEMOGLOBIN 28.7 pg (27.0-31.0); MEAN CORPUSCULAR HGB CONC 32.4 g/dL (33.0-37.0); MEAN PLATELET VOLUME 10.1 fL (7.2-11.7); MONO # 0.9 K/uL (0.0-0.8); MONO % 7.7 % (0.0-10.0); NEUT # 8.6 K/uL (1.8-7.0); NEUT % 76.7 % (50.0-75.0); NRBC % 0.1 % (0.0-2.0); RBC 3.86 Mil/uL (3.80-5.20); RED CELL DISTRIBUTION WIDTH 14.8 % (11.5-14.5); WHITE BLOOD COUNT 11.1 K/uL (4.8-10.8)
[2018-12-27 05:59] LABS: ARTERIAL BLOOD GAS HCO3 29.5 mmol/L (21-28); ARTERIAL BLOOD GAS O2 SAT 99.6 % (95-98); ARTERIAL BLOOD GAS PCO2 40 mm/Hg (35-45); ARTERIAL BLOOD GAS PH 7.48 (7.35-7.45); ARTERIAL BLOOD GAS PO2 115 mm/Hg (80-100)
--- NOTE | 2018-12-27 06:30 | CP.PCM.PN ---
Objective - Vital Signs/Intake and Output Vital Signs (last 24 hours): Temp Pulse Resp BP Pulse Ox 99.5 F 78 15 170/81 H 100 12/27/18 04:00 12/27/18 06:00 12/27/18 06:00 12/27/18 05:53 12/27/18 06:00 Intake and Output: 12/26/18 12/27/18 18:59 06:59 Intake Total 1158.6 937.2 Output Total 1610 2470 Balance -451.4 -1532.8 - Medications Medications: Current Medications Acetaminophen (Tylenol 650mg/20.3ml Solution Ud) 650 mg GT Q6 PRN PRN Reason: Temperature Last Admin: 12/24/18 10:31 Dose: 650 mg Aspirin (Aspirin Chewable) 81 mg PO DAILY [facility] Last Admin: 12/25/18 09:22 Dose: 81 mg Enoxaparin Sodium (Lovenox) 30 mg SC DAILY [facility] Last Admin: 12/26/18 10:26 Dose: 30 mg Hydrocortisone Sodium Succinate (Solu-Cortef) 50 mg IV Q12H [facility] Last Admin: 12/26/18 21:06 Dose: 50 mg Meropenem 500 mg/ Sodium (Chloride) 100 mls @ 100 mls/hr IVPB Q8H [facility]; Protocol Last Admin: 12/27/18 01:19 Dose: 100 mls/hr Dexmedetomidine HCl 200 mcg/ (Sodium Chloride) 50 mls @ 3.54 mls/hr IV TITR PRN; Protocol PRN Reason: Agitation Last Admin: 12/27/18 04:21 Dose: 0.6 mcg/kg/hr, 10.61 mls/hr Insulin Aspart (Novolog) 0 unit SC Q6H [facility]; Protocol Last Admin: 12/27/18 05:08 Dose: 1 u Methimazole (Tapazole) 20 mg PO Q8H [facility] Last Admin: 12/27/18 01:19 Dose: 20 mg Pantoprazole Sodium (Protonix Inj) 40 mg IVP DAILY [facility] Last Admin: 12/26/18 09:08 Dose: 40 mg Propranolol HCl (Inderal) 20 mg PO TID [facility] Last Admin: 12/26/18 17:22 Dose: 20 mg Rosuvastatin Calcium (Crestor) 10 mg PO HS [facility] Last Admin: 12/26/18 21:05 Dose: 10 mg - Labs Labs: 03/26/19 05:51 12/26/18 06:05 PT 14.1 SECONDS (9.7-12.2) H 12/26/18 06:07 INR 1.3 12/26/18 06:07 APTT 32 SECONDS (21-34) 12/26/18 06:07
--- NOTE | 2018-12-27 06:30 | CP.PCM.PN ---
Subjective - Date & Time of Evaluation Date of Evaluation: 12/27/18 Time of Evaluation: 07:15 - Subjective Subjective: Pgy3 IM Resident Endocrinology Progress note for Dr. Weaver Patient seen and examined at bedside. Remains intubated on vent. Patient tolerated CPAP for most of the day yesterday and is on CPAP this AM and tolerati ng (15,5,30%). Patient tracks head to voice. No acute events overnight as per nursing. Complete ROS unobtainable secondary to clinical condition. Objective - Vital Signs/Intake and Output Vital Signs (last 24 hours): Temp Pulse Resp BP Pulse Ox 99.5 F 78 15 170/81 H 100 12/27/18 04:00 12/27/18 06:00 12/27/18 06:00 12/27/18 05:53 12/27/18 06:00 Intake and Output: 12/26/18 12/27/18 18:59 06:59 Intake Total 1158.6 937.2 Output Total 1610 2470 Balance -451.4 -1532.8 - Medications Medications: Current Medications Acetaminophen (Tylenol 650mg/20.3ml Solution Ud) 650 mg GT Q6 PRN PRN Reason: Temperature Last Admin: 12/24/18 10:31 Dose: 650 mg Aspirin (Aspirin Chewable) 81 mg PO DAILY [facility] Last Admin: 12/25/18 09:22 Dose: 81 mg Enoxaparin Sodium (Lovenox) 30 mg SC DAILY [facility] Last Admin: 12/26/18 10:26 Dose: 30 mg Hydrocortisone Sodium Succinate (Solu-Cortef) 50 mg IV Q12H [facility] Last Admin: 12/26/18 21:06 Dose: 50 mg Meropenem 500 mg/ Sodium (Chloride) 100 mls @ 100 mls/hr IVPB Q8H [facility]; Protocol Last Admin: 12/27/18 01:19 Dose: 100 mls/hr Dexmedetomidine HCl 200 mcg/ (Sodium Chloride) 50 mls @ 3.54 mls/hr IV TITR PRN; Protocol PRN Reason: Agitation Last Admin: 12/27/18 04:21 Dose: 0.6 mcg/kg/hr, 10.61 mls/hr Insulin Aspart (Novolog) 0 unit SC Q6H [facility]; Protocol Last Admin: 12/27/18 05:08 Dose: 1 u Methimazole (Tapazole) 20 mg PO Q8H [facility] Last Admin: 12/27/18 01:19 Dose: 20 mg Pantoprazole Sodium (Protonix Inj) 40 mg IVP DAILY [facility] Last Admin: 12/26/18 09:08 Dose: 40 mg Propranolol HCl (Inderal) 20 mg PO TID [facility] Last Admin: 12/26/18 17:22 Dose: 20 mg Rosuvastatin Calcium (Crestor) 10 mg PO HS [facility] Last Admin: 12/26/18 21:05 Dose: 10 mg - Labs Labs: 12/27/18 05:51 12/26/18 06:05 PT 14.1 SECONDS (9.7-12.2) H 12/26/18 06:07 INR 1.3 12/26/18 06:07 APTT 32 SECONDS (21-34) 12/26/18 06:07 - Constitutional Appears: Non-toxic, No Acute Distress - Head Exam Head Exam: ATRAUMATIC, NORMAL INSPECTION, NORMOCEPHALIC - Eye Exam Eye Exam: Normal appearance. absent: Conjunctival injection, Scleral icterus Pupil Exam: NORMAL ACCOMODATION - ENT Exam ENT Exam: Mucous Membranes Moist Additional comments: ET tube in place - Respiratory Exam Respiratory Exam: NORMAL BREATHING PATTERN. absent: Accessory Muscle Use, Rales, Rhonchi, Wheezes, Respiratory Distress Additional comments: intubated on vent - Cardiovascular Exam Cardiovascular Exam: REGULAR RHYTHM, RRR, +S1, +S2 - GI/Abdominal Exam GI & Abdominal Exam: Soft, Normal Bowel Sounds. absent: Distended, Firm, Guarding, Rigid, Tenderness - Rectal Exam Rectal Exam: Deferred - Extremities Exam Extremities Exam: absent: Pedal Edema, Tenderness Additional comments: boots in place b/l - Neurological Exam Neurological Exam: Alert, Awake - Skin Skin Exam: Dry, Intact, Normal Color, Warm Assessment and Plan - Assessment and Plan (Free Text) Assessment: 48yo female PMHx HTN, Hyperthyroidism, TIA, anxiety, asthma and Grave's dx presented to the ER overnight with complaints of severe abdominal pain, nausea, and vomiting. Patient had cardiac arrest x 3 and ROSC was achieved. Admitted to MICU for further management. Endocrinology consulted for possible thyroid storm. Plan: Overnight events, imaging, and blood work noted. Patient clinically improved this AM. As per MICU team will attempt weaning today. Patient's family refused trach yesterday and surgery signed off. T4 trending down; 22.3 --> 13.8 --> 11.5 this AM 12/27/18. Cortisol this AM 12.3 and TSH this AM remains <0.02. Will discontinue solucortef 50q12 at this time. Will change Tapazole to 20mg bid. Tapazole more potent and longer acting than PTU which is short acting. Will continue to monitor blood work. Cardio reccs appreciated. Echo reviewed. Continue to correct electrolyte abnl. Continue management as per primary and MICU team. Discussed with Dr. Owen Crowell PGY3
[2018-12-27 06:57] LABS: ALB/GLOB RATIO 0.9 (1.0-2.1); ALBUMIN 2.9 g/dL (3.5-5.0); ALT/SGPT 90 U/L (9-52); AST/SGOT 48 U/L (14-36); BLOOD UREA NITROGEN 41 mg/dL (7-17); GFR NON-AFRICAN AMERICAN 40
--- NOTE | 2018-12-27 07:50 | PCM.VEEG ---
Video EEG - Procedure Start Date: 12/26/18 Start Time: 12:05 End Date: 12/27/18 End Time: 06:55 Technical Summary: DATA ACQUISITION: This was a multichannel inpatient video-EEG, a minimum of 22 channels were uti lized, performed in accordance with recommendations specified by the [place] [employer] (Merrick Le et al. ACNS Guideline 1: Minimum Technical Requirements for Performing Clinical Electroencephalography. Journal of Clinical Neurophysiology 2016;33:303-7). The 10-20 electrode placement system was utilized in accordance with guidelines detailed by the International Federation of Clinical Neurophysiology (Vasquez Parks et al. The Ten-Twenty Electrode System of the International Federation. Recommendations for the Practice of Clinical Neurophysiology: Guidelines of the International Federation of Clinical Physiology 1999; EEG Suppl. 52.). DATA REVIEW / SPIKE DETECTION / DIGITAL ANALYSIS: The entire EEG was scanned and reviewed. Synchronized audio and video recording were reviewed at the time of each alarm and whenever an abnormality or suspicious activity was noted. The entire recording was analyzed utilizing an automated digital spike and seizure analysis program and all automatic spike and seizure detections were manually reviewed. A compressed spectral array was displayed and reviewed alongside the raw EEG tracings. In addition, further analysis of the EEG was performed when abnormalities were identified, including montage changes, dipole source localization, and frequency band identification. Video portion of the study is necessary to correlate abnormal EEG activity with clinical behavior. This study was attended 24 hours per day. - Interpretation Description of the study: Indication; alter mental status EEG Finding during wakefulness: During the entire study was not discernible spontaneous awake EEG background, during most of the the EEG there was diffuse bilateral attenuation with frequencies in the 6 to 7 Hz. When she was stimulated or when there was an spontaneous arousal, the EEG became more organized with frequencies int eh 8 Hz, range, with proper r eactivity to stimulation and with proper organization. There was intermittent bifrontal rhythmic delta slowing at 3 to 4 Hz lasting 3 to 6 seconds mainly seen during drowsiness occasionally during wakefulness. EEG Finding during sleep: Normal sleep architecture was not seen, when the patient was clinically asleep the EEG showed diffuse bilateral slowing at 6 to 7 Hz. Interictal non-epileptiform abnormalities: None Interictal epileptiform abnormalities: None Ictal epileptiform abnormalities: None - Impression Impression: This was an abnormal video EEG, monitoring study, due to the presence of: 1- Moderate background slowing/attenuation and disorganization of the EEG. No seizures Not in status epilepticus INTERPRETATION: The above mentioned findings are in keeping with moderate non specific diffuse disturbance of cortical activity. 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 The findings do not suggest a specific etiology.
--- NOTE | 2018-12-27 08:11 | CP.CCUPN ---
<Moncho Karimi - Last Filed: 12/27/18 14:02> CCU Subjective - Physician Review Subjective (Free Text): ICU Progress Note for Dr. Johnson Pt seen and examined at bedside this am. S/p extubation, saturating well. Unable to obtain further HPI or ROS due to current clinical status. No acute events r eported overnight by staff. CCU Objective - Vital Signs / Intake & Output Vital Signs (Last 4 hours): Vital Signs Temp Pulse Resp BP Pulse Ox 12/27/18 08:00 99.1 F 77 16 99 12/27/18 07:56 78 14 142/73 99 12/27/18 07:54 81 13 183/148 H 100 12/27/18 07:00 78 14 100 12/27/18 06:53 78 16 171/84 H 100 12/27/18 06:00 78 15 100 12/27/18 05:53 170/81 H 12/27/18 05:00 77 17 100 12/27/18 04:53 157/79 H Intake and Output (Last 8hrs): Intake & Output 12/26/18 12/27/18 12/27/18 22:59 06:59 14:59 Intake Total 624.8 774.8 81.2 Output Total 1290 1840 350 Balance -665.2 -1065.2 -268.8 Weight 156 lb Intake: IV 50 100 Intake, IV Amount 84.8 184.8 21.2 left Hand 100 right hand 84.8 84.8 21.2 Oral 150 Tube Feeding 90 240 60 Other 250 250 Output: Urine 1280 1840 350 Urethral (Perez) 1280 1840 350 Stool 10 - Physical Exam Head: Positive for: Atraumatic, Normocephalic Pupils: Positive for: PERRL Extroacular Muscles: Positive for: EOMI. Negative for: Gaze Palsy Conjunctiva: Positive for: Normal Mouth: Positive for: Moist Mucous Membranes Neck: Positive for: Normal Range of Motion, Trachea Midline. Negative for: Meningeal Signs, MIDLINE TENDERNESS, Paraspinal Tenderness, JVD, Lymph adenopathy, Bruit, Other Respiratory/Chest: Positive for: Clear to Auscultation, Good Air Exchange, Other (currently intubated on vent). Negative for: Respiratory Distress, Accessory Muscle Use, Wheezes, Rales, Rhonchi Cardiovascular: Positive for: Normal S1, S2, Tachycardic. Negative for: Murmurs, Rub, Gallop Abdomen: Positive for: Normal Bowel Sounds. Negative for: Tenderness, Distention, Mass/Organomegaly Upper Extremity: Positive for: Normal Inspection, NORMAL PULSES, Neurovascularly Intact, Capillary Refill < 2s. Negative for: Cyanosis, Edema Lower Extremity: Positive for: Normal Inspection, NORMAL PULSES, Neurovascularly Intact, Capillary Refill < 2 s. Negative for: Edema Neurological: Positive for: Other (s/p extubation this am, able to track eyes in response to voice) Skin: Positive for: Warm, Dry, Normal Color Psychiatric: Positive for: Alert - Medications Active Medications: Active Medications Generic Name Dose Route Start Last Admin Trade Name Freq PRN Reason Stop Dose Admin Acetaminophen 650 mg 12/21/18 15:53 12/24/18 10:31 Tylenol 650mg/20.3ml Solution Ud GT 650 mg Q6 PRN Administration Temperature Aspirin 81 mg 12/24/18 10:00 12/25/18 09:22 Aspirin Chewable PO 81 mg DAILY FLORENCE Administration Enoxaparin Sodium 30 mg 12/23/18 10:00 12/26/18 10:26 Lovenox SC 30 mg DAILY [place] Administration Hydrocortisone Sodium Succinate 50 mg 12/24/18 10:00 12/26/18 21:06 Solu-Cortef IV 50 mg Q12H [place] Administration Meropenem 500 mg/ Sodium 100 mls @ 100 mls/hr 12/24/18 18:00 12/27/18 01:19 Chloride IVPB 100 mls/hr Q8H [place] Administration Protocol Dexmedetomidine HCl 200 mcg/ 50 mls @ 3.54 mls/hr 12/25/18 16:33 12/27/18 04:21 Sodium Chloride IV 0.6 mcg/kg/hr TITR PRN 10.61 mls/hr Agitation Administration Protocol 0.2 MCG/KG/HR Insulin Aspart 0 unit 12/24/18 12:00 12/27/18 05:08 Novolog SC 1 u Q6H [place] Administration Protocol Methimazole 20 mg 12/24/18 10:00 12/27/18 01:19 Tapazole PO 20 mg Q8H [place] Administration Pantoprazole Sodium 40 mg 12/21/18 10:15 12/26/18 09:08 Protonix Inj IVP 40 mg DAILY [place] Administration Propranolol HCl 20 mg 12/26/18 14:00 12/26/18 17:22 Inderal PO 20 mg TID [place] Administration Rosuvastatin Calcium 10 mg 12/25/18 22:00 12/26/18 21:05 Crestor PO 10 mg HS FLORENCE Administration - Patient Studies Lab Studies: Microbiology Studies 12/24/18 18:04 Gram Stain - Final Trachasp Sputum Culture - Final No growth. 12/21/18 08:39 Blood Culture - Final Blood NO GROWTH AFTER 5 DAYS 12/21/18 08:39 Blood Culture - Final Blood NO GROWTH AFTER 5 DAYS Gram Stain - Final TEST NOT PERFORMED Lab Studies 12/27/18 12/27/18 12/27/18 Range/Units 05:51 05:50 05:50 WBC 11.1 H (4.8-10.8) K/uL RBC 3.86 (3.80-5.20) Mil/uL Hgb 11.1 (11.0-16.0) g/dL Hct 34.1 (34.0-47.0) % MCV 88.5 (81.0-99.0) fL MCH 28.7 (27.0-31.0) pg MCHC 32.4 L (33.0-37.0) g/dL RDW 14.8 H (11.5-14.5) % Plt Count 110 L (130-400) K/uL MPV 10.1 (7.2-11.7) fL Neut % (Auto) 76.7 H (50.0-75.0) % Lymph % (Auto) 15.3 L (20.0-40.0) % Moore % (Auto) 7.7 (0.0-10.0) % Eos % (Auto) 0.1 (0.0-4.0) % Baso % (Auto) 0.2 (0.0-2.0) % Neut # (Auto) 8.6 H (1.8-7.0) K/uL Lymph # (Auto) 1.7 (1.0-4.3) K/uL Moore # (Auto) 0.9 H (0.0-0.8) K/uL Eos # (Auto) 0.0 (0.0-0.7) K/uL Baso # (Auto) 0.0 (0.0-0.2) K/uL Puncture Site pCO2 (35-45) mm/Hg pO2 (80-100) mm/Hg HCO3 (21-28) mmol/L ABG pH (7.35-7.45) ABG Total CO2 (22-28) mmol/L ABG O2 Saturation (95-98) % ABG Base Excess (-2.0-3.0) mmol/L Howard Test ABG Potassium (3.6-5.2) mmol/L A-a O2 Difference mm/Hg Respiratory Index Glucose (65-105) mg/dl Lactate (0.7-2.1) mmol/L Vent Mode Mechanical Rate FiO2 % Tidal Volume PEEP Sodium 150 H (132-148) mmol/L Potassium 3.8 (3.6-5.2) mmol/L Chloride 116 H (98-107) mmol/L Carbon Dioxide 30 (22-30) mmol/L Anion Gap 7 L (10-20) BUN 41 H (7-17) mg/dL Creatinine 1.4 H (0.7-1.2) mg/dL Est GFR ( Amer) 48 Est GFR (Non-Af Amer) 40 POC Glucose (mg/dL) (65-110) mg/dL Random Glucose 167 H (65-105) mg/dL Calcium 8.0 L (8.6-10.4) mg/dl Phosphorus (2.5-4.5) mg/dL Magnesium 1.7 (1.6-2.3) mg/dL Total Bilirubin 0.7 (0.2-1.3) mg/dL AST 48 H (14-36) U/L ALT 90 H D (9-52) U/L Alkaline Phosphatase 79 (38-126) U/L Total Protein 6.1 L (6.3-8.3) g/dL Albumin 2.9 L (3.5-5.0) g/dL Globulin 3.2 (2.2-3.9) gm/dL Albumin/Globulin Ratio 0.9 L (1.0-2.1) Procalcitonin (0.19-0.49) NG/ML Thyroxine (T4) 11.5 H (5.5-11.0) ug/dL TSH 3rd Generation < 0.02 L (0.46-4.68) mIU/L Cortisol AM Sample 12.3 (4.46-22.7) ug/dL Arterial Blood Potassium (3.6-5.2) mmol/L Hepatitis A IgM Ab (NEGATIVE) Hep Bs Antigen (NEGATIVE) Hep B Core IgM Ab (NEGATIVE) Hepatitis C Antibody (NEGATIVE) 12/27/18 12/27/18 12/27/18 Range/Units 05:13 04:34 00:17 WBC (4.8-10.8) K/uL RBC (3.80-5.20) Mil/uL Hgb (11.0-16.0) g/dL Hct (34.0-47.0) % MCV (81.0-99.0) fL MCH (27.0-31.0) pg MCHC (33.0-37.0) g/dL RDW (11.5-14.5) % Plt Count (130-400) K/uL MPV (7.2-11.7) fL Neut % (Auto) (50.0-75.0) % Lymph % (Auto) (20.0-40.0) % Moore % (Auto) (0.0-10.0) % Eos % (Auto) (0.0-4.0) % Baso % (Auto) (0.0-2.0) % Neut # (Auto) (1.8-7.0) K/uL Lymph # (Auto) (1.0-4.3) K/uL Moore # (Auto) (0.0-0.8) K/uL Eos # (Auto) (0.0-0.7) K/uL Baso # (Auto) (0.0-0.2) K/uL Puncture Site Rb pCO2 40 (35-45) mm/Hg pO2 115 H (80-100) mm/Hg HCO3 29.5 H (21-28) mmol/L ABG pH 7.48 H (7.35-7.45) ABG Total CO2 31.0 H (22-28) mmol/L ABG O2 Saturation 99.6 H (95-98) % ABG Base Excess 5.8 H (-2.0-3.0) mmol/L Howard Test Na ABG Potassium 2.9 L (3.6-5.2) mmol/L A-a O2 Difference 49.0 mm/Hg Respiratory Index 0.4 Glucose 167 H (65-105) mg/dl Lactate 1.0 (0.7-2.1) mmol/L Vent Mode Prvc Mechanical Rate 20 FiO2 30.0 % Tidal Volume 400 PEEP 5 Sodium 155.0 H (132-148) mmol/L Potassium (3.6-5.2) mmol/L Chloride 122.0 H (98-107) mmol/L Carbon Dioxide (22-30) mmol/L Anion Gap (10-20) BUN (7-17) mg/dL Creatinine (0.7-1.2) mg/dL Est GFR ( Amer) Est GFR (Non-Af Amer) POC Glucose (mg/dL) 160 H 184 H (65-110) mg/dL Random Glucose (65-105) mg/dL Calcium (8.6-10.4) mg/dl Phosphorus (2.5-4.5) mg/dL Magnesium (1.6-2.3) mg/dL Total Bilirubin (0.2-1.3) mg/dL AST (14-36) U/L ALT (9-52) U/L Alkaline Phosphatase (38-126) U/L Total Protein (6.3-8.3) g/dL Albumin (3.5-5.0) g/dL Globulin (2.2-3.9) gm/dL Albumin/Globulin Ratio (1.0-2.1) Procalcitonin (0.19-0.49) NG/ML Thyroxine (T4) (5.5-11.0) ug/dL TSH 3rd Generation (0.46-4.68) mIU/L Cortisol AM Sample (4.46-22.7) ug/dL Arterial Blood Potassium 2.9 L (3.6-5.2) mmol/L Hepatitis A IgM Ab (NEGATIVE) Hep Bs Antigen (NEGATIVE) Hep B Core IgM Ab (NEGATIVE) Hepatitis C Antibody (NEGATIVE) 12/26/18 12/26/18 12/26/18 Range/Units 06:05 06:05 05:30 WBC (4.8-10.8) K/uL RBC (3.80-5.20) Mil/uL Hgb (11.0-16.0) g/dL Hct (34.0-47.0) % MCV (81.0-99.0) fL MCH (27.0-31.0) pg MCHC (33.0-37.0) g/dL RDW (11.5-14.5) % Plt Count (130-400) K/uL MPV (7.2-11.7) fL Neut % (Auto) (50.0-75.0) % Lymph % (Auto) (20.0-40.0) % Moore % (Auto) (0.0-10.0) % Eos % (Auto) (0.0-4.0) % Baso % (Auto) (0.0-2.0) % Neut # (Auto) (1.8-7.0) K/uL Lymph # (Auto) (1.0-4.3) K/uL Moore # (Auto) (0.0-0.8) K/uL Eos # (Auto) (0.0-0.7) K/uL Baso # (Auto) (0.0-0.2) K/uL Puncture Site Rradial pCO2 36 (35-45) mm/Hg pO2 115 H (80-100) mm/Hg HCO3 27.1 (21-28) mmol/L ABG pH 7.47 H (7.35-7.45) ABG Total CO2 27.3 (22-28) mmol/L ABG O2 Saturation 99.3 H (95-98) % ABG Base Excess 2.7 (-2.0-3.0) mmol/L Howard Test Pos ABG Potassium (3.6-5.2) mmol/L A-a O2 Difference 54.0 mm/Hg Respiratory Index 0.5 Glucose (65-105) mg/dl Lactate (0.7-2.1) mmol/L Vent Mode Prvc Mechanical Rate 20 FiO2 30.0 % Tidal Volume 400 PEEP 5 Sodium 146 (132-148) mmol/L Potassium 4.2 (3.6-5.2) mmol/L Chloride 112 H (98-107) mmol/L Carbon Dioxide 27 (22-30) mmol/L Anion Gap 11 (10-20) BUN 44 H (7-17) mg/dL Creatinine 1.3 H (0.7-1.2) mg/dL Est GFR ( Amer) 53 Est GFR (Non-Af Amer) 44 POC Glucose (mg/dL) (65-110) mg/dL Random Glucose 168 H (65-105) mg/dL Calcium 8.1 L (8.6-10.4) mg/dl Phosphorus 4.2 (2.5-4.5) mg/dL Magnesium 2.0 (1.6-2.3) mg/dL Total Bilirubin 0.9 (0.2-1.3) mg/dL AST 43 H D (14-36) U/L ALT 129 H D (9-52) U/L Alkaline Phosphatase 71 (38-126) U/L Total Protein 5.8 L (6.3-8.3) g/dL Albumin 2.8 L (3.5-5.0) g/dL Globulin 3.0 (2.2-3.9) gm/dL Albumin/Globulin Ratio 0.9 L (1.0-2.1) Procalcitonin 0.42 (0.19-0.49) NG/ML Thyroxine (T4) (5.5-11.0) ug/dL TSH 3rd Generation < 0.02 L (0.46-4.68) mIU/L Cortisol AM Sample (4.46-22.7) ug/dL Arterial Blood Potassium (3.6-5.2) mmol/L Hepatitis A IgM Ab (NEGATIVE) Hep Bs Antigen (NEGATIVE) Hep B Core IgM Ab (NEGATIVE) Hepatitis C Antibody (NEGATIVE) 12/25/18 Range/Units 06:11 WBC (4.8-10.8) K/uL RBC (3.80-5.20) Mil/uL Hgb (11.0-16.0) g/dL Hct (34.0-47.0) % MCV (81.0-99.0) fL MCH (27.0-31.0) pg MCHC (33.0-37.0) g/dL RDW (11.5-14.5) % Plt Count (130-400) K/uL MPV (7.2-11.7) fL Neut % (Auto) (50.0-75.0) % Lymph % (Auto) (20.0-40.0) % Moore % (Auto) (0.0-10.0) % Eos % (Auto) (0.0-4.0) % Baso % (Auto) (0.0-2.0) % Neut # (Auto) (1.8-7.0) K/uL Lymph # (Auto) (1.0-4.3) K/uL Moore # (Auto) (0.0-0.8) K/uL Eos # (Auto) (0.0-0.7) K/uL Baso # (Auto) (0.0-0.2) K/uL Puncture Site pCO2 (35-45) mm/Hg pO2 (80-100) mm/Hg HCO3 (21-28) mmol/L ABG pH (7.35-7.45) ABG Total CO2 (22-28) mmol/L ABG O2 Saturation (95-98) % ABG Base Excess (-2.0-3.0) mmol/L Howard Test ABG Potassium (3.6-5.2) mmol/L A-a O2 Difference mm/Hg Respiratory Index Glucose (65-105) mg/dl Lactate (0.7-2.1) mmol/L Vent Mode Mechanical Rate FiO2 % Tidal Volume PEEP Sodium (132-148) mmol/L Potassium (3.6-5.2) mmol/L Chloride (98-107) mmol/L Carbon Dioxide (22-30) mmol/L Anion Gap (10-20) BUN (7-17) mg/dL Creatinine (0.7-1.2) mg/dL Est GFR ( Amer) Est GFR (Non-Af Amer) POC Glucose (mg/dL) (65-110) mg/dL Random Glucose (65-105) mg/dL Calcium (8.6-10.4) mg/dl Phosphorus (2.5-4.5) mg/dL Magnesium (1.6-2.3) mg/dL Total Bilirubin (0.2-1.3) mg/dL AST (14-36) U/L ALT (9-52) U/L Alkaline Phosphatase (38-126) U/L Total Protein (6.3-8.3) g/dL Albumin (3.5-5.0) g/dL Globulin (2.2-3.9) gm/dL Albumin/Globulin Ratio (1.0-2.1) Procalcitonin (0.19-0.49) NG/ML Thyroxine (T4) (5.5-11.0) ug/dL TSH 3rd Generation (0.46-4.68) mIU/L Cortisol AM Sample (4.46-22.7) ug/dL Arterial Blood Potassium (3.6-5.2) mmol/L Hepatitis A IgM Ab Negative (NEGATIVE) Hep Bs Antigen Negative (NEGATIVE) Hep B Core IgM Ab Negative (NEGATIVE) Hepatitis C Antibody Negative (NEGATIVE) Laboratory Results - last 24 hr 12/25/18 12/26/18 12/26/18 06:11 05:30 06:05 WBC RBC Hgb Hct MCV MCH MCHC RDW Plt Count MPV Neut % (Auto) Lymph % (Auto) Moore % (Auto) Eos % (Auto) Baso % (Auto) Neut # (Auto) Lymph # (Auto) Moore # (Auto) Eos # (Auto) Baso # (Auto) Puncture Site Rradial pCO2 36 pO2 115 H HCO3 27.1 ABG pH 7.47 H ABG Total CO2 27.3 ABG O2 Saturation 99.3 H ABG Base Excess 2.7 Howard Test Pos ABG Potassium A-a O2 Difference 54.0 Respiratory Index 0.5 Glucose Lactate Vent Mode Prvc Mechanical Rate 20 FiO2 30.0 Tidal Volume 400 PEEP 5 Sodium 146 Potassium 4.2 Chloride 112 H Carbon Dioxide 27 Anion Gap 11 BUN 44 H Creatinine 1.3 H Est GFR ( Amer) 53 Est GFR (Non-Af Amer) 44 POC Glucose (mg/dL) Random Glucose 168 H Calcium 8.1 L Phosphorus 4.2 Magnesium 2.0 Total Bilirubin 0.9 AST 43 H D ALT 129 H D Alkaline Phosphatase 71 Total Protein 5.8 L Albumin 2.8 L Globulin 3.0 Albumin/Globulin Ratio 0.9 L Procalcitonin Thyroxine (T4) TSH 3rd Generation < 0.02 L Cortisol AM Sample Arterial Blood Potassium Hepatitis A IgM Ab Negative Hep Bs Antigen Negative Hep B Core IgM Ab Negative Hepatitis C Antibody Negative 12/26/18 12/27/18 12/27/18 06:05 00:17 04:34 WBC RBC Hgb Hct MCV MCH MCHC RDW Plt Count MPV Neut % (Auto) Lymph % (Auto) Moore % (Auto) Eos % (Auto) Baso % (Auto) Neut # (Auto) Lymph # (Auto) Moore # (Auto) Eos # (Auto) Baso # (Auto) Puncture Site pCO2 pO2 HCO3 ABG pH ABG Total CO2 ABG O2 Saturation ABG Base Excess Howard Test ABG Potassium A-a O2 Difference Respiratory Index Glucose Lactate Vent Mode Mechanical Rate FiO2 Tidal Volume PEEP Sodium Potassium Chloride Carbon Dioxide Anion Gap BUN Creatinine Est GFR ( Amer) Est GFR (Non-Af Amer) POC Glucose (mg/dL) 184 H 160 H Random Glucose Calcium Phosphorus Magnesium Total Bilirubin AST ALT Alkaline Phosphatase Total Protein Albumin Globulin Albumin/Globulin Ratio Procalcitonin 0.42 Thyroxine (T4) TSH 3rd Generation Cortisol AM Sample Arterial Blood Potassium Hepatitis A IgM Ab Hep Bs Antigen Hep B Core IgM Ab Hepatitis C Antibody 12/27/18 12/27/18 12/27/18 05:13 05:50 05:50 WBC RBC Hgb Hct MCV MCH MCHC RDW Plt Count MPV Neut % (Auto) Lymph % (Auto) Moore % (Auto) Eos % (Auto) Baso % (Auto) Neut # (Auto) Lymph # (Auto) Moore # (Auto) Eos # (Auto) Baso # (Auto) Puncture Site Rb pCO2 40 pO2 115 H HCO3 29.5 H ABG pH 7.48 H ABG Total CO2 31.0 H ABG O2 Saturation 99.6 H ABG Base Excess 5.8 H Howard Test Na ABG Potassium 2.9 L A-a O2 Difference 49.0 Respiratory Index 0.4 Glucose 167 H Lactate 1.0 Vent Mode Prvc Mechanical Rate 20 FiO2 30.0 Tidal Volume 400 PEEP 5 Sodium 155.0 H 150 H Potassium 3.8 Chloride 122.0 H 116 H Carbon Dioxide 30 Anion Gap 7 L BUN 41 H Creatinine 1.4 H Est GFR ( Amer) 48 Est GFR (Non-Af Amer) 40 POC Glucose (mg/dL) Random Glucose 167 H Calcium 8.0 L Phosphorus Magnesium 1.7 Total Bilirubin 0.7 AST 48 H ALT 90 H D Alkaline Phosphatase 79 Total Protein 6.1 L Albumin 2.9 L Globulin 3.2 Albumin/Globulin Ratio 0.9 L Procalcitonin Thyroxine (T4) 11.5 H TSH 3rd Generation < 0.02 L Cortisol AM Sample 12.3 Arterial Blood Potassium 2.9 L Hepatitis A IgM Ab Hep Bs Antigen Hep B Core IgM Ab Hepatitis C Antibody 12/27/18 05:51 WBC 11.1 H RBC 3.86 Hgb 11.1 Hct 34.1 MCV 88.5 MCH 28.7 MCHC 32.4 L RDW 14.8 H Plt Count 110 L MPV 10.1 Neut % (Auto) 76.7 H Lymph % (Auto) 15.3 L Moore % (Auto) 7.7 Eos % (Auto) 0.1 Baso % (Auto) 0.2 Neut # (Auto) 8.6 H Lymph # (Auto) 1.7 Moore # (Auto) 0.9 H Eos # (Auto) 0.0 Baso # (Auto) 0.0 Puncture Site pCO2 pO2 HCO3 ABG pH ABG Total CO2 ABG O2 Saturation ABG Base Excess Howard Test ABG Potassium A-a O2 Difference Respiratory Index Glucose Lactate Vent Mode Mechanical Rate FiO2 Tidal Volume PEEP Sodium Potassium Chloride Carbon Dioxide Anion Gap BUN Creatinine Est GFR ( Amer) Est GFR (Non-Af Amer) POC Glucose (mg/dL) Random Glucose Calcium Phosphorus Magnesium Total Bilirubin AST ALT Alkaline Phosphatase Total Protein Albumin Globulin Albumin/Globulin Ratio Procalcitonin Thyroxine (T4) TSH 3rd Generation Cortisol AM Sample Arterial Blood Potassium Hepatitis A IgM Ab Hep Bs Antigen Hep B Core IgM Ab Hepatitis C Antibody Radiology Impressions: Radiology Impressions Chest X-Ray 12/26/18 08:00 IMPRESSION: ETT and NGT as above. Bilateral infiltrates atelectasis and bilateral effusions. Fingerstick Blood Sugar Results: 184 Review of Systems - Review of Systems Systems not reviewed;Unavailable: Altered Mental Status Assessment/Plan - Assessment and Plan (Free Text) Assessment: 48 y o female PMhx HTN, hyperthyroidism, TIA, anxiety, asthma, Grave's disease, who presented to the ED overnight with c/o severe abd pain, n/v. Per ED pt did not take home meds for about 3 wks, non-compliant with therapy. Pt presented hypertensive and tachycardic in ED, TSH < 0.02 on initial bloodwork, was given IV Labetalol and PO Inderal in the ED. Pt's bp began to drop after and was given fluids and IV glucagon. Pt was evaluated and accepted by ICU team at time, however prior to transfer, started to become bradycardic and went pulseless. Zandra Blue was called in ED and pt was resuscitated, ROSC achieved s/p epi x1. Pt subsequently was intubated and placed on mechanical vent. Pt had 2 additional episodes of cardiac arrest while being transferred to ICU that lasted 3-4 mins of chest compressions, received total epi x3 and atropine x1. ROSC achieved, pt had R femoral line placed, started on Levophed drip. Bedside echo revealed severely dilated R ventricle, raising suspicion for possible PE, pt was bolused and started on Heparin drip. Pt also has severe hypokinesis of L ventricle. Pt presented with severe metabolic acidosis, hyperkalemia and hypoglycemia. S/p 4 amps bicarb, 1 amp Ca gluconate, 1 amp D50. Currently being monitored in ICU, s/p extubation. Admitted to ICU for management of thyrotoxicosis. Plan: Neuro: -Intubated and sedated on vent, Versed drip, wean off as tolerated -Cont to monitor -Head CT on admission: Limited study given suboptimal pt positing. Streak artifact in posterior fossa limits eval at that level. No acute intracranial abnormality. -Neurology (Dr. Gill) consulted for anoxic brain injury, recs appreciated -Video EEG 12/26: Moderate background slowing/attenuation and disorganization of EEG. No seizures, not in status epilepticus. Cardio: -Tachycardia persistent, hypertensive -Levophed drip d/c'd -HTN meds changed to Propranolol q8h -Solu-cortef d/c'd as per Endo recs -Echo: LV function severely reduced with diffuse hypokinesis, LVEF 15%. Inferoapex and apical-septum akinetic. LSub optimal assessment of wall motion due to reduced study quality, apex not well seen. IV echo contrast would have improved assessment. R ventricle mod-markedly dilated. RVSF mod reduced. Mild aortic regurg. Mod tricuspid regurg. Ascending aorta mildly dilated. -Hyperkalemia resolved, cont to trend on labs -Venous duplex LE b/l neg for DVT -Cardiology consulted (Dr. Bah), recs appreciated -CT angio chest neg for PE, Heparin drip d/c'd -Consider repeat echo in 1 week to re-eval LV function/RV function Pulm: -S/p extubation, saturating well, cont to monitor -Metabolic acidosis resolved with most recent ABG -Recent CXR: Central pulmonary vascular congestive changes with interval improvement previously noted b/l infiltrates and b/l effusions. -Leukocytosis GI: -NPO -Tube feeds -IVF d/c'd 2/2 fluid overload -Protonix -Unable to assess abd pain currently 2/2 pt's current mental status -Transaminitis trending down, may be 2/2 to shock liver 2/2 to cardiac arrest, cont to trend -GI (Dr. Blair) consulted for Peg tube placement, recs appreciated Heme: -H/H stable, cont to trend -Leukocytosis this am, cont to trend ID: -Leukocytosis, cont to trend -Anbx changed to Merrem as per ID recs -ID consulted, Dr. Strange, recs appreciated -Blood cx NGTD -Urine and sputum cxs neg Endo: -Hx Grave's disease, pt non-compliant with home meds x3 weeks -TSH < 0.02 on admission, recent level the same -R/o thyroid storm? as etiology of symptoms, thyrotoxicosis -Endocrinology (Dr. Weaver) consulted, recs appreciated -Methimazole 20 mg PO q12h, Solu-cortef d/c'd -T4 elevated, thyroperoxidase Ab positive, Thyroglobulin Ab neg; serum cortisol elevated on 12/24 Renal: -BUN/Cr trending down, cont to monitor -Cont to trend I's/O's -Nephro consulted for TANVI (Dr. Call), recs appreciated PPX: -Protonix -Lovenox, SCD -PT eval ordered Pt seen, examined with, and plan discussed with Dr. Johnson, attending physician. Moncho Karimi DO PGY-1, [employer] Pager #[phone] <Blaine Johnson S - Last Filed: 12/27/18 17:21> CCU Subjective - Physician Review Critical Care Time Spent (in minutes): 45 CCU Objective - Vital Signs / Intake & Output Vital Signs (Last 4 hours): Vital Signs Temp Pulse Resp BP Pulse Ox 12/27/18 16:00 98.9 F 89 24 99 12/27/18 15:53 89 17 147/67 99 12/27/18 15:00 114 H 25 H 99 12/27/18 14:53 115 H 11 L 143/84 99 12/27/18 14:00 115 H 28 H 99 12/27/18 13:53 114 H 28 H 123/53 L 100 Intake and Output (Last 8hrs): Intake & Output 12/27/18 12/27/18 12/27/18 06:59 14:59 22:59 Intake Total 774.8 265.0 Output Total 1840 1200 350 Balance -1065.2 -935.0 -350 Weight 156 lb Intake: IV 100 52 Intake, IV Amount 184.8 153.0 left Hand 100 right AC 100 right hand 84.8 53.0 Tube Feeding 240 60 Other 250 Output: Urine 1840 1200 350 Urethral (Perez) 1840 1200 350 - Medications Active Medications: Active Medications Generic Name Dose Route Start Last Admin Trade Name Freq PRN Reason Stop Dose Admin Acetaminophen 650 mg 12/21/18 15:53 12/24/18 10:31 Tylenol 650mg/20.3ml Solution Ud GT 650 mg Q6 PRN Administration Temperature Aspirin 81 mg 12/24/18 10:00 12/25/18 09:22 Aspirin Chewable PO 81 mg DAILY [place] Administration Enoxaparin Sodium 30 mg 12/23/18 10:00 12/27/18 09:04 Lovenox SC 30 mg DAILY [place] Administration Meropenem 500 mg/ Sodium 100 mls @ 100 mls/hr 12/24/18 18:00 12/27/18 09:04 Chloride IVPB 100 mls/hr Q8H [place] Administration Protocol Dexmedetomidine HCl 200 mcg/ 50 mls @ 3.54 mls/hr 12/25/18 16:33 12/27/18 11:15 Sodium Chloride IV 0 mcg/kg/hr TITR PRN 0 mls/hr Agitation Titration Protocol 0.2 MCG/KG/HR Insulin Aspart 0 unit 12/24/18 12:00 12/27/18 11:40 Novolog SC Not Given Q6H [place] Protocol Losartan Potassium 50 mg 12/27/18 11:15 12/27/18 11:43 Cozaar PO 50 mg DAILY [place] Administration Methimazole 20 mg 12/27/18 22:00 Tapazole PO Q12 [place] Pantoprazole Sodium 40 mg 12/28/18 10:00 Protonix Susp PO DAILY [place] Propranolol HCl 20 mg 12/27/18 10:00 12/27/18 10:06 Inderal PO Not Given Q8H [place] Rosuvastatin Calcium 10 mg 12/25/18 22:00 12/26/18 21:05 Crestor PO 10 mg HS [place] Administration - Patient Studies Lab Studies: Lab Studies 12/27/18 12/27/18 12/27/18 Range/Units 05:51 05:50 05:50 WBC 11.1 H (4.8-10.8) K/uL RBC 3.86 (3.80-5.20) Mil/uL Hgb 11.1 (11.0-16.0) g/dL Hct 34.1 (34.0-47.0) % MCV 88.5 (81.0-99.0) fL MCH 28.7 (27.0-31.0) pg MCHC 32.4 L (33.0-37.0) g/dL RDW 14.8 H (11.5-14.5) % Plt Count 110 L (130-400) K/uL MPV 10.1 (7.2-11.7) fL Neut % (Auto) 76.7 H (50.0-75.0) % Lymph % (Auto) 15.3 L (20.0-40.0) % Moore % (Auto) 7.7 (0.0-10.0) % Eos % (Auto) 0.1 (0.0-4.0) % Baso % (Auto) 0.2 (0.0-2.0) % Neut # (Auto) 8.6 H (1.8-7.0) K/uL Lymph # (Auto) 1.7 (1.0-4.3) K/uL Moore # (Auto) 0.9 H (0.0-0.8) K/uL Eos # (Auto) 0.0 (0.0-0.7) K/uL Baso # (Auto) 0.0 (0.0-0.2) K/uL Puncture Site pCO2 (35-45) mm/Hg pO2 (80-100) mm/Hg HCO3 (21-28) mmol/L ABG pH (7.35-7.45) ABG Total CO2 (22-28) mmol/L ABG O2 Saturation (95-98) % ABG Base Excess (-2.0-3.0) mmol/L Howard Test ABG Potassium (3.6-5.2) mmol/L A-a O2 Difference mm/Hg Respiratory Index Sodium 150 H (132-148) mmol/l Chloride 116 H (98-107) mmol/L Glucose (65-105) mg/dl Lactate (0.7-2.1) mmol/L Vent Mode Mechanical Rate FiO2 % Tidal Volume PEEP Potassium 3.8 (3.6-5.2) mmol/L Carbon Dioxide 30 (22-30) mmol/L Anion Gap 7 L (10-20) BUN 41 H (7-17) mg/dL Creatinine 1.4 H (0.7-1.2) mg/dL Est GFR ( Amer) 48 Est GFR (Non-Af Amer) 40 POC Glucose (mg/dL) (65-110) mg/dL Random Glucose 167 H (65-105) mg/dL Calcium 8.0 L (8.6-10.4) mg/dl Magnesium 1.7 (1.6-2.3) mg/dL Total Bilirubin 0.7 (0.2-1.3) mg/dL AST 48 H (14-36) U/L ALT 90 H D (9-52) U/L Alkaline Phosphatase 79 (38-126) U/L Total Protein 6.1 L (6.3-8.3) g/dL Albumin 2.9 L (3.5-5.0) g/dL Globulin 3.2 (2.2-3.9) gm/dL Albumin/Globulin Ratio 0.9 L (1.0-2.1) Thyroxine (T4) 11.5 H (5.5-11.0) ug/dL TSH 3rd Generation < 0.02 L (0.46-4.68) mIU/L Cortisol AM Sample 12.3 (4.46-22.7) ug/dL Arterial Blood Potassium (3.6-5.2) mmol/L 12/27/18 12/27/18 12/27/18 Range/Units 05:13 04:34 00:17 WBC (4.8-10.8) K/uL RBC (3.80-5.20) Mil/uL Hgb (11.0-16.0) g/dL Hct (34.0-47.0) % MCV (81.0-99.0) fL MCH (27.0-31.0) pg MCHC (33.0-37.0) g/dL RDW (11.5-14.5) % Plt Count (130-400) K/uL MPV (7.2-11.7) fL Neut % (Auto) (50.0-75.0) % Lymph % (Auto) (20.0-40.0) % Moore % (Auto) (0.0-10.0) % Eos % (Auto) (0.0-4.0) % Baso % (Auto) (0.0-2.0) % Neut # (Auto) (1.8-7.0) K/uL Lymph # (Auto) (1.0-4.3) K/uL Moore # (Auto) (0.0-0.8) K/uL Eos # (Auto) (0.0-0.7) K/uL Baso # (Auto) (0.0-0.2) K/uL Puncture Site Rb pCO2 40 (35-45) mm/Hg pO2 115 H (80-100) mm/Hg HCO3 29.5 H (21-28) mmol/L ABG pH 7.48 H (7.35-7.45) ABG Total CO2 31.0 H (22-28) mmol/L ABG O2 Saturation 99.6 H (95-98) % ABG Base Excess 5.8 H (-2.0-3.0) mmol/L Howard Test Na ABG Potassium 2.9 L (3.6-5.2) mmol/L A-a O2 Difference 49.0 mm/Hg Respiratory Index 0.4 Sodium 155.0 H (132-148) mmol/l Chloride 122.0 H (98-107) mmol/L Glucose 167 H (65-105) mg/dl Lactate 1.0 (0.7-2.1) mmol/L Vent Mode Prvc Mechanical Rate 20 FiO2 30.0 % Tidal Volume 400 PEEP 5 Potassium (3.6-5.2) mmol/L Carbon Dioxide (22-30) mmol/L Anion Gap (10-20) BUN (7-17) mg/dL Creatinine (0.7-1.2) mg/dL Est GFR ( Amer) Est GFR (Non-Af Amer) POC Glucose (mg/dL) 160 H 184 H (65-110) mg/dL Random Glucose (65-105) mg/dL Calcium (8.6-10.4) mg/dl Magnesium (1.6-2.3) mg/dL Total Bilirubin (0.2-1.3) mg/dL AST (14-36) U/L ALT (9-52) U/L Alkaline Phosphatase (38-126) U/L Total Protein (6.3-8.3) g/dL Albumin (3.5-5.0) g/dL Globulin (2.2-3.9) gm/dL Albumin/Globulin Ratio (1.0-2.1) Thyroxine (T4) (5.5-11.0) ug/dL TSH 3rd Generation (0.46-4.68) mIU/L Cortisol AM Sample (4.46-22.7) ug/dL Arterial Blood Potassium 2.9 L (3.6-5.2) mmol/L Laboratory Results - last 24 hr 12/27/18 12/27/18 12/27/18 00:17 04:34 05:13 WBC RBC Hgb Hct MCV MCH MCHC RDW Plt Count MPV Neut % (Auto) Lymph % (Auto) Moore % (Auto) Eos % (Auto) Baso % (Auto) Neut # (Auto) Lymph # (Auto) Moore # (Auto) Eos # (Auto) Baso # (Auto) Puncture Site Rb pCO2 40 pO2 115 H HCO3 29.5 H ABG pH 7.48 H ABG Total CO2 31.0 H ABG O2 Saturation 99.6 H ABG Base Excess 5.8 H Howard Test Na ABG Potassium 2.9 L A-a O2 Difference 49.0 Respiratory Index 0.4 Sodium 155.0 H Chloride 122.0 H Glucose 167 H Lactate 1.0 Vent Mode Prvc Mechanical Rate 20 FiO2 30.0 Tidal Volume 400 PEEP 5 Potassium Carbon Dioxide Anion Gap BUN Creatinine Est GFR ( Amer) Est GFR (Non-Af Amer) POC Glucose (mg/dL) 184 H 160 H Random Glucose Calcium Magnesium Total Bilirubin AST ALT Alkaline Phosphatase Total Protein Albumin Globulin Albumin/Globulin Ratio Thyroxine (T4) TSH 3rd Generation Cortisol AM Sample Arterial Blood Potassium 2.9 L 12/27/18 12/27/18 12/27/18 05:50 05:50 05:51 WBC 11.1 H RBC 3.86 Hgb 11.1 Hct 34.1 MCV 88.5 MCH 28.7 MCHC 32.4 L RDW 14.8 H Plt Count 110 L MPV 10.1 Neut % (Auto) 76.7 H Lymph % (Auto) 15.3 L Moore % (Auto) 7.7 Eos % (Auto) 0.1 Baso % (Auto) 0.2 Neut # (Auto) 8.6 H Lymph # (Auto) 1.7 Moore # (Auto) 0.9 H Eos # (Auto) 0.0 Baso # (Auto) 0.0 Puncture Site pCO2 pO2 HCO3 ABG pH ABG Total CO2 ABG O2 Saturation ABG Base Excess Howard Test ABG Potassium A-a O2 Difference Respiratory Index Sodium 150 H Chloride 116 H Glucose Lactate Vent Mode Mechanical Rate FiO2 Tidal Volume PEEP Potassium 3.8 Carbon Dioxide 30 Anion Gap 7 L BUN 41 H Creatinine 1.4 H Est GFR ( Amer) 48 Est GFR (Non-Af Amer) 40 POC Glucose (mg/dL) Random Glucose 167 H Calcium 8.0 L Magnesium 1.7 Total Bilirubin 0.7 AST 48 H ALT 90 H D Alkaline Phosphatase 79 Total Protein 6.1 L Albumin 2.9 L Globulin 3.2 Albumin/Globulin Ratio 0.9 L Thyroxine (T4) 11.5 H TSH 3rd Generation < 0.02 L Cortisol AM Sample 12.3 Arterial Blood Potassium Radiology Impressions: Radiology Impressions Chest X-Ray 12/27/18 06:00 IMPRESSION: ETT and NGT as above. Central pulmonary vascular congestive changes with interval improvement previously noted bilateral infiltrates and bilateral effusions Attending/Attestation - Attestation I have personally seen and examined this patient.: Yes I have fully participated in the care of the patient.: Yes I have reviewed all pertinent clinical information: Yes Notes (Text): 12/27/18 17:21 Patient seen and examined in the intensive care unit. Extubated after weaning trial Patient is awake and responsive Swallowing evaluation Adjust methimazole as per endocrinology Taper steroids Controlled high blood pressure
[2018-12-27] MEDS: Enoxaparin 30 mg Syringe SC SCH (09:04)
[2018-12-27] MEDS ORDERED: Labetalol 25mg/5ml Syringe IVP STA (09:53)
--- NOTE | 2018-12-27 11:04 | CP.PCM.PN ---
Subjective - Date & Time of Evaluation Date of Evaluation: 12/27/18 Time of Evaluation: 11:01 - Subjective Subjective: Patient is more alert today, still intubated. Family wishes to postpone decision regarding PEG until later in the week to see if her mental status continues to improve. Objective - Vital Signs/Intake and Output Vital Signs (last 24 hours): Temp Pulse Resp BP Pulse Ox 99.1 F 111 H 21 186/100 H 100 12/27/18 08:00 12/27/18 10:00 12/27/18 10:00 12/27/18 09:53 12/27/18 10:00 Intake and Output: 12/27/18 12/27/18 06:59 18:59 Intake Total 937.2 202.4 Output Total 2470 700 Balance -1532.8 -497.6 - Medications Medications: Current Medications Acetaminophen (Tylenol 650mg/20.3ml Solution Ud) 650 mg GT Q6 PRN PRN Reason: Temperature Last Admin: 12/24/18 10:31 Dose: 650 mg Aspirin (Aspirin Chewable) 81 mg PO DAILY [facility] Last Admin: 12/25/18 09:22 Dose: 81 mg Enoxaparin Sodium (Lovenox) 30 mg SC DAILY [facility] Last Admin: 12/27/18 09:04 Dose: 30 mg Meropenem 500 mg/ Sodium (Chloride) 100 mls @ 100 mls/hr IVPB Q8H [place]; Protocol Last Admin: 12/27/18 09:04 Dose: 100 mls/hr Dexmedetomidine HCl 200 mcg/ (Sodium Chloride) 50 mls @ 3.54 mls/hr IV TITR PRN; Protocol PRN Reason: Agitation Last Admin: 12/27/18 04:21 Dose: 0.6 mcg/kg/hr, 10.61 mls/hr Insulin Aspart (Novolog) 0 unit SC Q6H [place]; Protocol Last Admin: 12/27/18 05:08 Dose: 1 u Methimazole (Tapazole) 20 mg PO Q12 [place] Pantoprazole Sodium (Protonix Inj) 40 mg IVP DAILY [facility] Last Admin: 12/27/18 09:04 Dose: 40 mg Propranolol HCl (Inderal) 20 mg PO Q8H [place] Last Admin: 12/27/18 10:06 Dose: Not Given Rosuvastatin Calcium (Crestor) 10 mg PO HS [facility] Last Admin: 12/26/18 21:05 Dose: 10 mg - Labs Labs: 12/27/18 05:51 12/27/18 05:50 PT 14.1 SECONDS (9.7-12.2) H 12/26/18 06:07 INR 1.3 12/26/18 06:07 APTT 32 SECONDS (21-34) 12/26/18 06:07 - Constitutional Appears: No Acute Distress - Head Exam Head Exam: ATRAUMATIC, NORMOCEPHALIC - Neck Exam Neck Exam: absent: Lymphadenopathy, Thyromegaly - Respiratory Exam Respiratory Exam: NORMAL BREATHING PATTERN. absent: Rales, Rhonchi, Wheezes - Cardiovascular Exam Cardiovascular Exam: REGULAR RHYTHM, +S1, +S2. absent: Gallop, Rubs, Murmur - GI/Abdominal Exam GI & Abdominal Exam: Soft, Normal Bowel Sounds. absent: Tenderness, Mass, Organomegaly - Rectal Exam Rectal Exam: Deferred - Extremities Exam Extremities Exam: absent: Calf Tenderness, Pedal Edema Assessment and Plan (1) Dysphagia Assessment & Plan: Patient seems more alert today. Await family's decision regarding PEG. Status: Acute
--- NOTE | 2018-12-27 11:08 | CP.PCM.PN ---
Subjective - Date & Time of Evaluation Date of Evaluation: 12/27/18 Time of Evaluation: 11:07 - Subjective Subjective: Nephrology Consultation Note: Assessment: Stable Non-oliguric Acute Kidney Injury (N17.9) likely due to renal hypoperfusion due to cardiac arrest/hypotension leading to ATN, had exposure to IV contrast in addition: IMPROVING uncontrolled severe HTN hypokalemia, hyperkalemia, HAGMA/lactic acidosis hypernatremia hypertension (years) obesity hyperthyroidism thyroid storm, cardiac arrest s/p resuscitation BiV failure with LVEF 15%, sepsis Plan No acute need for renal replacement therapy at this time. Hypertension control with meds as ordered. Maintain hemodynamics stable. Avoid hypotension. Patient not on ACEI/ARB due to recent TANVI but as TANVI better and BP hgih, CHF, will add losartan 50 mg/d. agree with beta-blockers Monitor Input/Output, daily weights and renal function with basic metabolic panel lasix prn to maintain euvolemia as tolerated by BP supplement lytes as needed endocrine and cardiology following free water flushes continue renal sono once she is stable Dose meds/antibiotics for improved GFR. Glycemic control Further work up/management as per primary team Thanks for allowing me to participate in care of your patient. Will follow patient with you. Please call if any Qs. had d/w team Dr Darshan Call Office: [phone] Chief Complaint; unable Reason for consult: Acute Kidney Injury HPI: Pt is a 48 F with hx of hypertension (years) obesity hyperthyroidism prese nted with complaints of pain abdomen and found to have thyroid storm, cardiac arrest s/p resuscitation, foudn to have BiV failure with LVEF 15%, sepsis and also with TANVI hence renal consulted no known OTC/herbal meds or NSAIDs Noted recent iodinated contrast exposure as CTA. Noted obvious episodes of low BP. ROS: unable to obtain from pt. pt intubated Physical Examination: General Appearance: Comfortable, in no acute respiratory distress, ill appearing intubated Vitals reviewed and noted as below Head; Atraumatic, normocephalic ENT: no ulcers no thrush. Tongue is midline. Oropharynx: no rash or ulcers. EYES: Pupils are equal, round and sluggish to light accommodation. Eye muscles and extraocular movement intact. Sclera is anicteric. Neck; supple no lymphadenopathy, gross thyromegaly noted Lungs: Normal respiratory rate/effort. Breath sounds reduced at bases Heart: Increased rate. s1s2 normal. No rub or gallop. Extremities: no edema. No varicose veins Neurological: Patient is awake and able to follow commands Skin: Warm and dry. Normal turgor. No rash. Palpitation: Normal elasticity for age Abdomen: Abdomen is soft. Bowel sounds +. There is no abdominal tenderness, no guarding/rigidity no organomegaly Psych: unable MSK: no joint tenderness or swelling. Digits and nails normal, no deformity : kidney or bladder not palpable Labs/imaging reviewed. Past medical history, past surgical history, family history, social history, allergy reviewed and noted as below Family hx: no hx of CKD. Rest non-contributory Objective - Vital Signs/Intake and Output Vital Signs (last 24 hours): Temp Pulse Resp BP Pulse Ox 99.1 F 115 H 24 155/87 H 100 12/27/18 08:00 12/27/18 11:00 12/27/18 11:00 12/27/18 10:54 12/27/18 11:00 Intake and Output: 12/27/18 12/27/18 06:59 18:59 Intake Total 937.2 263.0 Output Total 2470 700 Balance -1532.8 -437.0 - Medications Medications: Current Medications Acetaminophen (Tylenol 650mg/20.3ml Solution Ud) 650 mg GT Q6 PRN PRN Reason: Temperature Last Admin: 12/24/18 10:31 Dose: 650 mg Aspirin (Aspirin Chewable) 81 mg PO DAILY [facility] Last Admin: 12/25/18 09:22 Dose: 81 mg Enoxaparin Sodium (Lovenox) 30 mg SC DAILY [facility] Last Admin: 12/27/18 09:04 Dose: 30 mg Meropenem 500 mg/ Sodium (Chloride) 100 mls @ 100 mls/hr IVPB Q8H [place]; Protocol Last Admin: 12/27/18 09:04 Dose: 100 mls/hr Dexmedetomidine HCl 200 mcg/ (Sodium Chloride) 50 mls @ 3.54 mls/hr IV TITR PRN; Protocol PRN Reason: Agitation Last Admin: 12/27/18 11:04 Dose: 0.6 mcg/kg/hr, 10.61 mls/hr Insulin Aspart (Novolog) 0 unit SC Q6H [facility]; Protocol Last Admin: 12/27/18 05:08 Dose: 1 u Methimazole (Tapazole) 20 mg PO Q12 [place] Pantoprazole Sodium (Protonix Inj) 40 mg IVP DAILY [facility] Last Admin: 12/27/18 09:04 Dose: 40 mg Propranolol HCl (Inderal) 20 mg PO Q8H [place] Last Admin: 12/27/18 10:06 Dose: Not Given Rosuvastatin Calcium (Crestor) 10 mg PO HS [facility] Last Admin: 12/26/18 21:05 Dose: 10 mg - Labs Labs: 12/27/18 05:51 12/27/18 05:50 PT 14.1 SECONDS (9.7-12.2) H 12/26/18 06:07 INR 1.3 12/26/18 06:07 APTT 32 SECONDS (21-34) 12/26/18 06:07
--- NOTE | 2018-12-27 11:37 | CP.PCM.PN ---
Subjective - Date & Time of Evaluation Date of Evaluation: 12/27/18 - Subjective Subjective: patient seen today more alert no fever, no vomiting, no diarrhea Objective - Vital Signs/Intake and Output Vital Signs (last 24 hours): Temp Pulse Resp BP Pulse Ox 99.1 F 115 H 24 155/87 H 100 12/27/18 08:00 12/27/18 11:00 12/27/18 11:00 12/27/18 10:54 12/27/18 11:00 Intake and Output: 12/27/18 12/27/18 06:59 18:59 Intake Total 937.2 263.0 Output Total 2470 700 Balance -1532.8 -437.0 - Medications Medications: Current Medications Acetaminophen (Tylenol 650mg/20.3ml Solution Ud) 650 mg GT Q6 PRN PRN Reason: Temperature Last Admin: 12/24/18 10:31 Dose: 650 mg Aspirin (Aspirin Chewable) 81 mg PO DAILY [facility] Last Admin: 12/25/18 09:22 Dose: 81 mg Enoxaparin Sodium (Lovenox) 30 mg SC DAILY [place] Last Admin: 12/27/18 09:04 Dose: 30 mg Meropenem 500 mg/ Sodium (Chloride) 100 mls @ 100 mls/hr IVPB Q8H [place]; Protocol Last Admin: 12/27/18 09:04 Dose: 100 mls/hr Dexmedetomidine HCl 200 mcg/ (Sodium Chloride) 50 mls @ 3.54 mls/hr IV TITR PRN; Protocol PRN Reason: Agitation Last Admin: 12/27/18 11:04 Dose: 0.6 mcg/kg/hr, 10.61 mls/hr Insulin Aspart (Novolog) 0 unit SC Q6H [facility]; Protocol Last Admin: 12/27/18 05:08 Dose: 1 u Losartan Potassium (Cozaar) 50 mg PO DAILY [facility] Methimazole (Tapazole) 20 mg PO Q12 [place] Pantoprazole Sodium (Protonix Susp) 40 mg PO DAILY [facility] Propranolol HCl (Inderal) 20 mg PO Q8H [place] Last Admin: 12/27/18 10:06 Dose: Not Given Rosuvastatin Calcium (Crestor) 10 mg PO HS [place] Last Admin: 12/26/18 21:05 Dose: 10 mg - Labs Labs: 12/27/18 05:51 12/27/18 05:50 PT 14.1 SECONDS (9.7-12.2) H 12/26/18 06:07 INR 1.3 12/26/18 06:07 APTT 32 SECONDS (21-34) 12/26/18 06:07 - Constitutional Appears: Well - Head Exam Head Exam: ATRAUMATIC, NORMAL INSPECTION, NORMOCEPHALIC - Eye Exam Eye Exam: EOMI, Normal appearance, PERRL Pupil Exam: NORMAL ACCOMODATION, PERRL - ENT Exam ENT Exam: Mucous Membranes Moist, Normal Exam - Neck Exam Neck Exam: Full ROM, Normal Inspection. absent: Lymphadenopathy - Respiratory Exam Respiratory Exam: Decreased Breath Sounds - Cardiovascular Exam Cardiovascular Exam: REGULAR RHYTHM, +S1, +S2 - GI/Abdominal Exam GI & Abdominal Exam: Soft, Diminished Bowel Sounds - Rectal Exam Rectal Exam: Deferred Assessment and Plan - Assessment and Plan (Free Text) Plan: medications reviewed propanolol tapazole novolog vitals, labs and xray reviewed
--- NOTE | 2018-12-27 11:47 | CP.PCM.PN ---
Subjective - Date & Time of Evaluation Date of Evaluation: 12/27/18 Time of Evaluation: 11:44 - Subjective Subjective: More alert today extubated Sinus tach low 100's Objective - Vital Signs/Intake and Output Vital Signs (last 24 hours): Temp Pulse Resp BP Pulse Ox 99.1 F 115 H 24 155/87 H 100 12/27/18 08:00 12/27/18 11:00 12/27/18 11:00 12/27/18 10:54 12/27/18 11:00 Intake and Output: 12/27/18 12/27/18 06:59 18:59 Intake Total 937.2 263.0 Output Total 2470 700 Balance -1532.8 -437.0 - Medications Medications: Current Medications Acetaminophen (Tylenol 650mg/20.3ml Solution Ud) 650 mg GT Q6 PRN PRN Reason: Temperature Last Admin: 12/24/18 10:31 Dose: 650 mg Aspirin (Aspirin Chewable) 81 mg PO DAILY [facility] Last Admin: 12/25/18 09:22 Dose: 81 mg Enoxaparin Sodium (Lovenox) 30 mg SC DAILY [facility] Last Admin: 12/27/18 09:04 Dose: 30 mg Meropenem 500 mg/ Sodium (Chloride) 100 mls @ 100 mls/hr IVPB Q8H [place]; Protocol Last Admin: 12/27/18 09:04 Dose: 100 mls/hr Dexmedetomidine HCl 200 mcg/ (Sodium Chloride) 50 mls @ 3.54 mls/hr IV TITR PRN; Protocol PRN Reason: Agitation Last Admin: 12/27/18 11:04 Dose: 0.6 mcg/kg/hr, 10.61 mls/hr Insulin Aspart (Novolog) 0 unit SC Q6H [facility]; Protocol Last Admin: 12/27/18 11:40 Dose: Not Given Losartan Potassium (Cozaar) 50 mg PO DAILY [facility] Last Admin: 12/27/18 11:43 Dose: 50 mg Methimazole (Tapazole) 20 mg PO Q12 [place] Pantoprazole Sodium (Protonix Susp) 40 mg PO DAILY [facility] Propranolol HCl (Inderal) 20 mg PO Q8H [place] Last Admin: 12/27/18 10:06 Dose: Not Given Rosuvastatin Calcium (Crestor) 10 mg PO HS [facility] Last Admin: 12/26/18 21:05 Dose: 10 mg - Labs Labs: 12/27/18 05:51 12/27/18 05:50 PT 14.1 SECONDS (9.7-12.2) H 12/26/18 06:07 INR 1.3 12/26/18 06:07 APTT 32 SECONDS (21-34) 12/26/18 06:07 - Constitutional Appears: No Acute Distress, Chronically Ill - Head Exam Head Exam: ATRAUMATIC, NORMAL INSPECTION, NORMOCEPHALIC - Eye Exam Eye Exam: absent: Scleral icterus - Respiratory Exam Respiratory Exam: Decreased Breath Sounds, Rhonchi - Cardiovascular Exam Cardiovascular Exam: Tachycardia, REGULAR RHYTHM, +S1, +S2 - GI/Abdominal Exam GI & Abdominal Exam: Soft. absent: Tenderness - Extremities Exam Extremities Exam: absent: Pedal Edema - Neurological Exam Neurological Exam: Alert, Awake - Skin Skin Exam: Normal Color, Warm Assessment and Plan - Assessment and Plan (Free Text) Assessment: Non compliant 48 y/o Thyroid storm Severe metabolic acidosis TANVI probably ATN Shock liver Hyperkalemia: resolved Acute respiratory failure due to above: s/p intubation Toxic/metobolic encepholopathy Likely metabolic/hypoxemic cardiac arrest manifested as profound bradycardia: requiring CPR to gain ROSC ECHO: directly viewed by me: mod-severe LV dysfunction global hypokinesia LVH RVE and moderate RV dysfunction Mild-mod inc in PASP dilated IVC and reduced compliance c/w inc JVP Mod TR, Mild MR, trace AI Grade 1 diastolic dysfunction PLAN: 48 year old female with respirtory failure now extubated more awake Severe biventricular failure currently euvolemic, ContinueBeta blockers Hypovolemic now HTN TANVI impring: monitor lytes Hyperthyroid on tapazole and beta blockers PEG/TRACH: family reluctant to progress to trach and PEG Supportive care consider repat echo in 1 week to re-eval LV function/RV function
--- NOTE | 2018-12-27 13:25 | RAD ---
Date of service: 12/27/2018 HISTORY: eval for interval change COMPARISON: Comparison chest 2018. TECHNIQUE: 1 view obtained. FINDINGS: Situ ETT, tip which lies 4.4 cm above michael. In situ NGT the distal aspect which is coiled upon itself tip oriented superiorly towards the fundus of stomach LUNGS: Central pulmonary vascular congestive changes with interval improvement previously noted bilateral infiltrates and bilateral effusions PLEURA: As above. No apparent pneumothorax CARDIOVASCULAR: Heart remains enlarged. No aortic atherosclerotic calcification present. Normal cardiac size. No pulmonary vascular congestion. OSSEOUS STRUCTURES: No significant abnormalities. VISUALIZED UPPER ABDOMEN: Normal. OTHER FINDINGS: None. IMPRESSION: ETT and NGT as above. Central pulmonary vascular congestive changes with interval improvement previously noted bilateral infiltrates and bilateral effusions
--- NOTE | 2018-12-27 21:01 | PN ---
DATE: 12/27/2018 LOCATION: ICU room 18. SUBJECTIVE: This is a 48-year-old female with recent acute respiratory failure and has been extubated today and tolerating her nasal cannula oxygen delivery as noted. She is more awake and responsive at this time. She remains clinically euthyroid and biochemically has remarkable improvement of her thyroid indices as noted. LABORATORY DATA: Her chemistry showed a BUN of 41, sodium 150, potassium 3.8, chloride 116, CO2 of 30, glucose 167, and creatinine 1.4. Her glucose levels have ranged from 160 to 184 mg/dL. Her repeat T4 level is 11.5 mcg/dL with a TSH of less than 0.02. The serum cortisol level is 12.3 as noted. ASSESSMENT: This is a 48-year-old female with overt thyrotoxicosis noted historically, clinically, and biochemically with remarkable clinical and biochemical improvement with the initial high-dose thyroid pharmacotherapy as given. She is less tachycardic and with more stable blood pressure readings as noted over the last 24 hours. She was previously intubated and sedated and now has been extubated and tolerating the oxygen by nasal cannula as given today. PLAN OF MANAGEMENT: We will modify also her Tapazole medications as ordered, and we will lower the Tapazole to 20 mg every 12 hours as ordered to start today. We will also discontinue the hydrocortisone given as 50 mg IV every 12 hours as previously ordered. We will continue the beta-blockers with propanolol given as 20 mg every 8 hours as ordered. We will obtain serial chemistries and supplement accordingly as needed. We will also obtain serial thyroid studies and adjust her dose regimen accordingly. We will follow. Linda Weaver MD
[2018-12-27] MEDS ORDERED: Labetalol 5mg/ml (4ml) IVP STA (22:16)
[2018-12-28] MEDS: Meropenem 500 MG in Sodium Chloride 0.9% 100 ML IVPB SCH ×3 (01:27→17:14)
[2018-12-28] MEDS ORDERED: Labetalol 5mg/ml (4ml) IVP ONE (03:06)
[2018-12-28] MEDS: (Novolog) Insulin Aspart, Recombinant 100 u/ml 10 ml vial SC SCH ×4 (06:15→18:14)
[2018-12-28 06:33] LABS: BASO % 0.2 % (0.0-2.0); EOS % 0.1 % (0.0-4.0); HEMOGLOBIN 13.2 g/dL (11.0-16.0); LYMPH # 1.6 K/uL (1.0-4.3); MEAN CELL VOLUME 87.9 fL (81.0-99.0); MEAN CORPUSCULAR HEMOGLOBIN 28.7 pg (27.0-31.0); MEAN CORPUSCULAR HGB CONC 32.7 g/dL (33.0-37.0); MONO # 0.8 K/uL (0.0-0.8); MONO % 6.8 % (0.0-10.0); NEUT # 9.6 K/uL (1.8-7.0); NEUT % 79.9 % (50.0-75.0); NRBC % 0.3 % (0.0-2.0); RBC 4.6 Mil/uL (3.80-5.20); RED CELL DISTRIBUTION WIDTH 14.9 % (11.5-14.5)
[2018-12-28 06:47] LABS: ALB/GLOB RATIO 0.9 (1.0-2.1); ALBUMIN 3.6 g/dL (3.5-5.0); CALCIUM 8.3 mg/dl (8.6-10.4)
--- NOTE | 2018-12-28 06:57 | CP.PCM.PN ---
Subjective - Date & Time of Evaluation Date of Evaluation: 12/28/18 Time of Evaluation: 07:48 - Subjective Subjective: [facility] Internal Medicine Resident Endocrinology Progress note for Dr. Weaver Objective - Vital Signs/Intake and Output Vital Signs (last 24 hours): Temp Pulse Resp BP Pulse Ox 99.1 F 84 26 H 152/89 H 100 12/28/18 04:00 12/28/18 06:00 12/28/18 06:00 12/28/18 06:01 12/28/18 06:00 Intake and Output: 12/27/18 12/28/18 18:59 06:59 Intake Total 365.0 300 Output Total 2400 1700 Balance -2035.0 -1400 - Medications Medications: Current Medications Acetaminophen (Tylenol 650mg/20.3ml Solution Ud) 650 mg GT Q6 PRN PRN Reason: Temperature Last Admin: 12/24/18 10:31 Dose: 650 mg Aspirin (Aspirin Chewable) 81 mg PO DAILY [facility] Last Admin: 12/25/18 09:22 Dose: 81 mg Enoxaparin Sodium (Lovenox) 30 mg SC DAILY [facility] Last Admin: 12/27/18 09:04 Dose: 30 mg Meropenem 500 mg/ Sodium (Chloride) 100 mls @ 100 mls/hr IVPB Q8H [place]; Protocol Last Admin: 12/28/18 01:27 Dose: 100 mls/hr Dexmedetomidine HCl 200 mcg/ (Sodium Chloride) 50 mls @ 3.54 mls/hr IV TITR PRN; Protocol PRN Reason: Agitation Last Titration: 12/27/18 11:15 Dose: 0 mcg/kg/hr, 0 mls/hr Insulin Aspart (Novolog) 0 unit SC Q6H [facility]; Protocol Last Admin: 12/28/18 00:00 Dose: Not Given Losartan Potassium (Cozaar) 50 mg PO DAILY [facility] Last Admin: 12/27/18 11:43 Dose: 50 mg Methimazole (Tapazole) 20 mg PO Q12 [place] Last Admin: 12/27/18 21:22 Dose: 20 mg Pantoprazole Sodium (Protonix Susp) 40 mg PO DAILY [facility] Propranolol HCl (Inderal) 20 mg PO Q8H [facility] Last Admin: 12/28/18 01:25 Dose: 20 mg Rosuvastatin Calcium (Crestor) 10 mg PO HS [facility] Last Admin: 12/27/18 21:21 Dose: 10 mg - Labs Labs: 12/28/18 06:24 12/28/18 06:22 PT 14.1 SECONDS (9.7-12.2) H 12/26/18 06:07 INR 1.3 12/26/18 06:07 APTT 32 SECONDS (21-34) 12/26/18 06:07
--- NOTE | 2018-12-28 07:32 | CP.CCUPN ---
<Moncho Karimi - Last Filed: 12/28/18 16:49> CCU Subjective - Physician Review Subjective (Free Text): ICU Progress Note for Dr. Johnson Pt seen and examined at bedside this am. S/p extubation, saturating well. Unable to obtain further HPI or ROS due to current clinical status. No acute events r eported overnight by staff. Pending speech/swallow eval. CCU Objective - Vital Signs / Intake & Output Vital Signs (Last 4 hours): Vital Signs Temp Pulse Resp BP Pulse Ox 12/28/18 07:01 113 H 33 H 167/92 H 100 12/28/18 07:00 114 H 32 H 100 12/28/18 06:01 152/89 H 12/28/18 06:00 84 26 H 100 12/28/18 05:02 93 H 26 H 146/78 97 12/28/18 05:00 90 33 H 100 12/28/18 04:08 86 22 184/92 H 96 12/28/18 04:00 99.1 F 86 22 96 Intake and Output (Last 8hrs): Intake & Output 12/27/18 12/28/18 12/28/18 22:59 06:59 14:59 Intake Total 200 200 Output Total 1400 1050 Balance -1200 -850 Weight 149 lb 7 oz Intake: Intake, IV Amount 100 100 right AC 100 100 Oral 0 0 Other 100 100 Output: Urine 1400 1050 Urethral (Perez) 1400 1050 Other: # Bowel Movements 1 1 - Physical Exam Head: Positive for: Atraumatic, Normocephalic Pupils: Positive for: PERRL Extroacular Muscles: Positive for: EOMI. Negative for: Gaze Palsy Conjunctiva: Positive for: Normal Mouth: Positive for: Moist Mucous Membranes Neck: Positive for: Normal Range of Motion, Trachea Midline. Negative for: Meningeal Signs, MIDLINE TENDERNESS, Paraspinal Tenderness, JVD, Lymphadenopathy, Bruit, Other Respiratory/Chest: Positive for: Clear to Auscultation, Good Air Exchange, Other (currently intubated on vent). Negative for: Respiratory Distress, Accessory Muscle Use, Wheezes, Rales, Rhonchi Cardiovascular: Positive for: Normal S1, S2, Tachycardic. Negative for: Murmurs, Rub, Gallop Abdomen: Positive for: Normal Bowel Sounds. Negative for: Tenderness, Dis tention, Mass/Organomegaly Upper Extremity: Positive for: Normal Inspection, NORMAL PULSES, Neurovascularly Intact, Capillary Refill < 2s. Negative for: Cyanosis, Edema Lower Extremity: Positive for: Normal Inspection, NORMAL PULSES, Neurovascularly Intact, Capillary Refill < 2 s. Negative for: Edema Neurological: Positive for: Other (s/p extubation this am, able to track eyes in response to voice) Skin: Positive for: Warm, Dry, Normal Color Psychiatric: Positive for: Alert - Medications Active Medications: Active Medications Generic Name Dose Route Start Last Admin Trade Name Freq PRN Reason Stop Dose Admin Acetaminophen 650 mg 12/21/18 15:53 12/24/18 10:31 Tylenol 650mg/20.3ml Solution Ud GT 650 mg Q6 PRN Administration Temperature Aspirin 81 mg 12/24/18 10:00 12/25/18 09:22 Aspirin Chewable PO 81 mg DAILY [place] Administration Enoxaparin Sodium 30 mg 12/23/18 10:00 12/27/18 09:04 Lovenox SC 30 mg DAILY [place] Administration Meropenem 500 mg/ Sodium 100 mls @ 100 mls/hr 12/24/18 18:00 12/28/18 01:27 Chloride IVPB 100 mls/hr Q8H [place] Administration Protocol Dexmedetomidine HCl 200 mcg/ 50 mls @ 3.54 mls/hr 12/25/18 16:33 12/27/18 11:15 Sodium Chloride IV 0 mcg/kg/hr TITR PRN 0 mls/hr Agitation Titration Protocol 0.2 MCG/KG/HR Insulin Aspart 0 unit 12/24/18 12:00 12/28/18 06:15 Novolog SC Not Given Q6H [place] Protocol Losartan Potassium 50 mg 12/27/18 11:15 12/27/18 11:43 Cozaar PO 50 mg DAILY [place] Administration Methimazole 20 mg 12/27/18 22:00 12/27/18 21:22 Tapazole PO 20 mg Q12 [place] Administration Pantoprazole Sodium 40 mg 12/28/18 10:00 Protonix Susp PO DAILY [place] Propranolol HCl 20 mg 12/27/18 10:00 12/28/18 01:25 Inderal PO 20 mg Q8H [place] Administration Rosuvastatin Calcium 10 mg 12/25/18 22:00 12/27/18 21:21 Crestor PO 10 mg HS [place] Administration - Patient Studies Lab Studies: Lab Studies 12/28/18 12/28/18 Range/Units 06:24 06:22 WBC 12.0 H (4.8-10.8) K/uL RBC 4.60 (3.80-5.20) Mil/uL Hgb 13.2 D (11.0-16.0) g/dL Hct 40.4 (34.0-47.0) % MCV 87.9 (81.0-99.0) fL MCH 28.7 (27.0-31.0) pg MCHC 32.7 L (33.0-37.0) g/dL RDW 14.9 H (11.5-14.5) % Plt Count 188 (130-400) K/uL MPV 10.0 (7.2-11.7) fL Neut % (Auto) 79.9 H (50.0-75.0) % Lymph % (Auto) 13.0 L (20.0-40.0) % Price % (Auto) 6.8 (0.0-10.0) % Eos % (Auto) 0.1 (0.0-4.0) % Baso % (Auto) 0.2 (0.0-2.0) % Neut # (Auto) 9.6 H (1.8-7.0) K/uL Lymph # (Auto) 1.6 (1.0-4.3) K/uL Price # (Auto) 0.8 (0.0-0.8) K/uL Eos # (Auto) 0.0 (0.0-0.7) K/uL Baso # (Auto) 0.0 (0.0-0.2) K/uL Sodium 159 H (132-148) mmol/L Potassium 2.7 L (3.6-5.2) mmol/L Chloride 121 H (98-107) mmol/L Carbon Dioxide 32 H (22-30) mmol/L Anion Gap 9 L (10-20) BUN 34 H (7-17) mg/dL Creatinine 1.2 (0.7-1.2) mg/dL Est GFR ( Amer) 58 Est GFR (Non-Af Amer) 48 Random Glucose 150 H (65-105) mg/dL Calcium 8.3 L (8.6-10.4) mg/dl Phosphorus 3.7 (2.5-4.5) mg/dL Magnesium 1.6 (1.6-2.3) mg/dL Total Bilirubin 1.0 (0.2-1.3) mg/dL AST 47 H (14-36) U/L ALT 66 H D (9-52) U/L Alkaline Phosphatase 85 (38-126) U/L Total Protein 7.5 (6.3-8.3) g/dL Albumin 3.6 (3.5-5.0) g/dL Globulin 3.9 (2.2-3.9) gm/dL Albumin/Globulin Ratio 0.9 L (1.0-2.1) Laboratory Results - last 24 hr 12/28/18 12/28/18 06:22 06:24 WBC 12.0 H RBC 4.60 Hgb 13.2 D Hct 40.4 MCV 87.9 MCH 28.7 MCHC 32.7 L RDW 14.9 H Plt Count 188 MPV 10.0 Neut % (Auto) 79.9 H Lymph % (Auto) 13.0 L Price % (Auto) 6.8 Eos % (Auto) 0.1 Baso % (Auto) 0.2 Neut # (Auto) 9.6 H Lymph # (Auto) 1.6 Price # (Auto) 0.8 Eos # (Auto) 0.0 Baso # (Auto) 0.0 Sodium 159 H Potassium 2.7 L Chloride 121 H Carbon Dioxide 32 H Anion Gap 9 L BUN 34 H Creatinine 1.2 Est GFR ( Amer) 58 Est GFR (Non-Af Amer) 48 Random Glucose 150 H Calcium 8.3 L Phosphorus 3.7 Magnesium 1.6 Total Bilirubin 1.0 AST 47 H ALT 66 H D Alkaline Phosphatase 85 Total Protein 7.5 Albumin 3.6 Globulin 3.9 Albumin/Globulin Ratio 0.9 L Radiology Impressions: Radiology Impressions Chest X-Ray 12/27/18 06:00 IMPRESSION: ETT and NGT as above. Central pulmonary vascular congestive changes with interval improvement previously noted bilateral infiltrates and bilateral effusions Fingerstick Blood Sugar Results: 150 Review of Systems - Review of Systems Systems not reviewed;Unavailable: Altered Mental Status Assessment/Plan - Assessment and Plan (Free Text) Assessment: 48 y o female PMhx HTN, hyperthyroidism, TIA, anxiety, asthma, Grave's disease, who presented to the ED overnight with c/o severe abd pain, n/v. Per ED pt did not take home meds for about 3 wks, non-compliant with therapy. Pt presented hypertensive and tachycardic in ED, TSH < 0.02 on initial bloodwork, was given IV Labetalol and PO Inderal in the ED. Pt's bp began to drop after and was given fluids and IV glucagon. Pt was evaluated and accepted by ICU team at time, however prior to transfer, started to become bradycardic and went pulseless. Code Blue was called in ED and pt was resuscitated, ROSC achieved s/p epi x1. Pt subsequently was intubated and placed on mechanical vent. Pt had 2 additional episodes of cardiac arrest while being transferred to ICU that lasted 3-4 mins of chest compressions, received total epi x3 and atropine x1. ROSC achieved, pt had R femoral line placed, started on Levophed drip. Bedside echo revealed severely dilated R ventricle, raising suspicion for possible PE, pt was bolused and started on Heparin drip. Pt also has severe hypokinesis of L ventricle. Pt presented with severe metabolic acidosis, hyperkalemia and hypoglycemia. S/p 4 amps bicarb, 1 amp Ca gluconate, 1 amp D50. Currently being monitored in ICU, s/p extubation. Admitted to ICU for management of thyrotoxicosis. Plan: Neuro: -S/p extubation -Speech and swallow eval ordered -Cont to monitor -Head CT on admission: Limited study given suboptimal pt positing. Streak artifact in posterior fossa limits eval at that level. No acute intracranial abnormality. -Neurology (Dr. Gill) consulted for ?anoxic brain injury, recs appreciated -Video EEG 12/26: Moderate background slowing/attenuation and disorganization of EEG. No seizures, not in status epilepticus. -Repeat video EEG 12/27: improved significantly in past 24 hrs, became normal at end of file -MRI brain ordered as per Neuro recs Cardio: -Tachycardia improving, hypertensive -Levophed drip d/c'd -HTN meds: Propranolol q8h, Cozaar daily, Hydralazine 25 mg PO q8h -Solu-cortef d/c'd as per Endo recs -Echo: LV function severely reduced with diffuse hypokinesis, LVEF 15%. Inferoapex and apical-septum akinetic. LSub optimal assessment of wall motion due to reduced study quality, apex not well seen. IV echo contrast would have improved assessment. R ventricle mod-markedly dilated. RVSF mod reduced. Mild aortic regurg. Mod tricuspid regurg. Ascending aorta mildly dilated. -Hyperkalemia resolved, cont to trend on labs -Venous duplex LE b/l neg for DVT -Cardiology consulted (Dr. Bah), recs appreciated -CT angio chest neg for PE, Heparin drip d/c'd -Consider repeat echo to re-eval LV function/RV function as per Cardio recs Pulm: -S/p extubation, saturating well, cont to monitor -Metabolic acidosis resolved with most recent ABG -Recent CXR: S/p removal of ET tube, possible very small L pleural effusion. Otherwise no change -Leukocytosis GI: -NPO -Tube feeds -D5W @ 100 cc/hr as per Nephro recs for Hypernatremia, pt demonstrating large urine output -Protonix -Transaminitis trending down, may be 2/2 to shock liver 2/2 to cardiac arrest, cont to trend Heme: -H/H stable, cont to trend -Leukocytosis this am, cont to trend ID: -Leukocytosis, cont to trend -Anbx changed to Merrem as per ID recs -ID consulted, Dr. Strange, recs appreciated -Blood cx NGTD -Urine and sputum cxs neg Endo: -Hx Grave's disease, pt non-compliant with home meds x3 weeks -TSH < 0.02 on admission, recent level the same -R/o thyroid storm? as etiology of symptoms, thyrotoxicosis -Endocrinology (Dr. Weaver) consulted, recs appreciated -Methimazole 20 mg PO q12h, Solu-cortef d/c'd -T4 elevated, thyroperoxidase Ab positive, Thyroglobulin Ab neg; serum cortisol elevated on 12/24 Renal: -BUN/Cr trending down, cont to monitor -Cont to trend I's/O's -Presenting with Hypernatremia and Hypokalemia on am labs today -K repleted, cont to trend -Started D5W at 100 cc/hr as per Nephro recs, renal sono once stable -Nephro consulted for TANVI (Dr. Call), recs appreciated PPX: -Protonix -Lovenox, SCD -PT eval ordered Pt seen, examined with, and plan discussed with Dr. Johnson, attending physician. Moncho Karimi DO PGY-1, Safety And Health Manager Pager #[phone] <Blaine Johnson - Last Filed: 12/28/18 17:02> CCU Subjective - Physician Review Critical Care Time Spent (in minutes): 40 CCU Objective - Vital Signs / Intake & Output Vital Signs (Last 4 hours): Vital Signs Temp Pulse Resp BP Pulse Ox 12/28/18 16:13 115/78 12/28/18 16:00 98.9 F 106 H 35 H 100 12/28/18 15:13 118/52 L 12/28/18 15:00 102 H 33 H 99 12/28/18 14:14 102 H 37 H 137/89 100 12/28/18 13:13 120 H 33 H 113/79 Intake and Output (Last 8hrs): Intake & Output 12/28/18 12/28/18 12/28/18 06:59 14:59 22:59 Intake Total 200 730 240 Output Total 1050 200 Balance -850 530 240 Weight 149 lb 7 oz Intake: Intake, IV Amount 100 560 170 Left Antecubital 250 right AC 100 pierre midline 310 170 Oral 0 70 70 Other 100 100 Output: Urine 1050 200 Urethral (Perez) 1050 200 Other: # Bowel Movements 1 - Medications Active Medications: Active Medications Generic Name Dose Route Start Last Admin Trade Name Freq PRN Reason Stop Dose Admin Acetaminophen 650 mg 12/21/18 15:53 12/24/18 10:31 Tylenol 650mg/20.3ml Solution Ud GT 650 mg Q6 PRN Administration Temperature Aspirin 81 mg 12/24/18 10:00 12/28/18 10:19 Aspirin Chewable PO 81 mg DAILY [place] Administration Enoxaparin Sodium 30 mg 12/23/18 10:00 12/28/18 09:19 Lovenox SC 30 mg DAILY [place] Administration Hydralazine HCl 25 mg 12/28/18 10:00 12/28/18 10:19 Apresoline PO 25 mg Q8H [place] Administration Meropenem 500 mg/ Sodium 100 mls @ 100 mls/hr 12/24/18 18:00 12/28/18 09:20 Chloride IVPB 100 mls/hr Q8H [place] Administration Protocol Dextrose 1,000 mls @ 100 mls/hr 12/28/18 15:15 12/28/18 15:31 Dextrose 5% In Water 1000 Ml IV 100 mls/hr .Q10H [place] Administration Insulin Aspart 0 unit 12/24/18 12:00 12/28/18 11:46 Novolog SC 2 u Q6H [place] Administration Protocol Losartan Potassium 50 mg 12/27/18 11:15 12/28/18 09:19 Cozaar PO 50 mg DAILY [place] Administration Methimazole 20 mg 12/27/18 22:00 12/28/18 09:19 Tapazole PO 20 mg Q12 [place] Administration Pantoprazole Sodium 40 mg 12/28/18 10:00 12/28/18 09:19 Protonix Susp PO 40 mg DAILY [place] Administration Propranolol HCl 20 mg 12/27/18 10:00 12/28/18 09:19 Inderal PO 20 mg Q8H [place] Administration Rosuvastatin Calcium 10 mg 12/25/18 22:00 12/27/18 21:21 Crestor PO 10 mg HS [place] Administration - Patient Studies Lab Studies: Lab Studies 12/28/18 12/28/18 12/22/18 Range/Units 06:24 06:22 08:00 WBC 12.0 H (4.8-10.8) K/uL RBC 4.60 (3.80-5.20) Mil/uL Hgb 13.2 D (11.0-16.0) g/dL Hct 40.4 (34.0-47.0) % MCV 87.9 (81.0-99.0) fL MCH 28.7 (27.0-31.0) pg MCHC 32.7 L (33.0-37.0) g/dL RDW 14.9 H (11.5-14.5) % Plt Count 188 (130-400) K/uL MPV 10.0 (7.2-11.7) fL Neut % (Auto) 79.9 H (50.0-75.0) % Lymph % (Auto) 13.0 L (20.0-40.0) % Price % (Auto) 6.8 (0.0-10.0) % Eos % (Auto) 0.1 (0.0-4.0) % Baso % (Auto) 0.2 (0.0-2.0) % Neut # (Auto) 9.6 H (1.8-7.0) K/uL Lymph # (Auto) 1.6 (1.0-4.3) K/uL Price # (Auto) 0.8 (0.0-0.8) K/uL Eos # (Auto) 0.0 (0.0-0.7) K/uL Baso # (Auto) 0.0 (0.0-0.2) K/uL Sodium 159 H (132-148) mmol/L Potassium 2.7 L (3.6-5.2) mmol/L Chloride 121 H (98-107) mmol/L Carbon Dioxide 32 H (22-30) mmol/L Anion Gap 9 L (10-20) BUN 34 H (7-17) mg/dL Creatinine 1.2 (0.7-1.2) mg/dL Est GFR ( Amer) 58 Est GFR (Non-Af Amer) 48 Random Glucose 150 H (65-105) mg/dL Calcium 8.3 L (8.6-10.4) mg/dl Phosphorus 3.7 (2.5-4.5) mg/dL Magnesium 1.6 (1.6-2.3) mg/dL Total Bilirubin 1.0 (0.2-1.3) mg/dL AST 47 H (14-36) U/L ALT 66 H D (9-52) U/L Alkaline Phosphatase 85 (38-126) U/L Total Protein 7.5 (6.3-8.3) g/dL Albumin 3.6 (3.5-5.0) g/dL Globulin 3.9 (2.2-3.9) gm/dL Albumin/Globulin Ratio 0.9 L (1.0-2.1) Thyroid Stim Immunoglob >700 H (<140) % baseline Laboratory Results - last 24 hr 12/22/18 12/28/18 12/28/18 08:00 06:22 06:24 WBC 12.0 H RBC 4.60 Hgb 13.2 D Hct 40.4 MCV 87.9 MCH 28.7 MCHC 32.7 L RDW 14.9 H Plt Count 188 MPV 10.0 Neut % (Auto) 79.9 H Lymph % (Auto) 13.0 L Price % (Auto) 6.8 Eos % (Auto) 0.1 Baso % (Auto) 0.2 Neut # (Auto) 9.6 H Lymph # (Auto) 1.6 Price # (Auto) 0.8 Eos # (Auto) 0.0 Baso # (Auto) 0.0 Sodium 159 H Potassium 2.7 L Chloride 121 H Carbon Dioxide 32 H Anion Gap 9 L BUN 34 H Creatinine 1.2 Est GFR ( Amer) 58 Est GFR (Non-Af Amer) 48 Random Glucose 150 H Calcium 8.3 L Phosphorus 3.7 Magnesium 1.6 Total Bilirubin 1.0 AST 47 H ALT 66 H D Alkaline Phosphatase 85 Total Protein 7.5 Albumin 3.6 Globulin 3.9 Albumin/Globulin Ratio 0.9 L Thyroid Stim Immunoglob >700 H Radiology Impressions: Radiology Impressions Chest X-Ray 12/28/18 06:00 IMPRESSION: Status post removal of ET tube. Possible very small left pleural effusion. Otherwise no change. Attending/Attestation - Attestation I have personally seen and examined this patient.: Yes I have fully participated in the care of the patient.: Yes I have reviewed all pertinent clinical information: Yes Notes (Text): 12/28/18 17:00 Patient seen and examined in the intensive care unit. Case discussed with housestaff in the morning rounds. Patient extubated yesterday and breathing fine For swallowing evaluation Started on D5W for hypernatremia Monitor urine output Continue steroids and methimazole Controlled hypertension Potassium supplement
--- NOTE | 2018-12-28 09:11 | RAD ---
Date of service: 12/28/2018 HISTORY: eval interval change COMPARISON: 12/27/2018 TECHNIQUE: 1 view obtained. FINDINGS: LUNGS: No active pulmonary disease. PLEURA: Minimal hazy opacity at left costophrenic angle. Possible small left pleural effusion. No right pleural effusion. No pneumothorax. CARDIOVASCULAR: No aortic atherosclerotic calcification present. Normal cardiac size. No congestive change. NG tube again noted. ET tube has been removed. OSSEOUS STRUCTURES: No significant abnormalities. VISUALIZED UPPER ABDOMEN: Normal. OTHER FINDINGS: None. IMPRESSION: Status post removal of ET tube. Possible very small left pleural effusion. Otherwise no change.
--- NOTE | 2018-12-28 09:15 | PCM.VEEG ---
Video EEG - Procedure Start Date: 12/27/18 Start Time: 06:50 End Date: 12/28/18 End Time: 08:15 Technical Summary: DATA ACQUISITION: This was a multichannel inpatient video-EEG, a minimum of 22 channels were uti lized, performed in accordance with recommendations specified by the [place] [employer] Society (Merrick Le et al. ACNS Guideline 1: Minimum Technical Requirements for Performing Clinical Electroencephalography. Journal of Clinical Neurophysiology 2016;33:303-7). The 10-20 electrode placement system was utilized in accordance with guidelines detailed by the International Federation of Clinical Neurophysiology (Vasquez Parks et al. The Ten-Twenty Electrode System of the International Federation. Recommendations for the Practice of Clinical Neurophysiology: Guidelines of the International Federation of Clinical Physiology 1999; EEG Suppl. 52.). DATA REVIEW / SPIKE DETECTION / DIGITAL ANALYSIS: The entire EEG was scanned and reviewed. Synchronized audio and video recording were reviewed at the time of each alarm and whenever an abnormality or suspicious activity was noted. The entire recording was analyzed utilizing an automated digital spike and seizure analysis program and all automatic spike and seizure detections were manually reviewed. A compressed spectral array was displayed and reviewed alongside the raw EEG tracings. In addition, further analysis of the EEG was performed when abnormalities were identified, including montage changes, dipole source localization, and frequency band identification. This study was attended 24 hours per day. - Interpretation Description of the study: Indication; alter mental status/status epilepticus EEG Finding during wakefulness: During active states, the EEG was characterized by 10-12 Hz, 15-30 uV activity bilaterally in fronto-central regions. Resting wakefulness was characterized by a symmetric posterior dominant rhythm of 7 to 8 Hz, 30-50 uV, which was reactive to eye opening and closing. Drowsiness was associated with slow roving eye movements, slowing and fragmentation of the posterior dominant rhythm, and bilateral 4-7 Hz, 40-70 uV theta activity, sometimes with a shifting predominance. There was intermittent bifrontal rhythmic delta slowing at 3 to 4 Hz lasting 3 to 6 seconds mainly seen during drowsiness occasionally during wakefulness. EEG Finding during sleep: Light sleep was recorded and was characterized by fronto-central slowing at 5-7 H, 50-125 uV, sharp central vertex waves, bilateral sleep spindles, and K- complexes; shifting asymmetries were evident. Vertex waves were often of higher amplitude on the right. Superimposition of waveform frequencies created the a ppearance of apiculate waveforms, which were not interpreted as pathologic spike-wave complexes. Deeper stages of sleep were recorded and were characterized an increasing frequency of 1-4 Hz, 50-100 uV delta activity. Interictal non-epileptiform abnormalities: None Interictal epileptiform abnormalities: None Ictal epileptiform abnormalities: None - Impression Impression: This was an abnormal video EEG, monitoring study, due to the presence of: 1- FIRDA (frontal intermittent rhythmic delta activity). EEG improved and became normal at the end of the file. No episodes were capture. INTERPRETATION: The above findings are in keeping with a mild non specific diffuse disturbance of cortical activity. 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 The findings do not suggest a specific etiology. The EEG has improved significantly from the previous 24 hs, and has continue to improve and became normal at the end of this file 12/27 to 12/28.
[2018-12-28] MEDS: Pantoprazole 40 mg Susp UD PO SCH (09:19)
[2018-12-28] MEDS: Enoxaparin 30 mg Syringe SC SCH (09:19)
[2018-12-28] MEDS ORDERED: Sodium Chloride 0.9% 1,000 ML IV SCH (09:45)
[2018-12-28] MEDS ORDERED: Dextrose 5%/0.45% NS 1,000 ML IV SCH (10:15)
[2018-12-28] MEDS: Potassium Chloride 20 mEq/15 ml LIQ UD PO SCH ×3 (10:19→14:37)
[2018-12-28] MEDS ORDERED: Magnesium Sulfate 1 gm in D5W 1 GM/100 ML BAG IVPB ONE (11:00)
--- NOTE | 2018-12-28 11:19 | CP.PCM.PN ---
<Ivis Morrison Y - Last Filed: 12/28/18 13:14> Subjective - Date & Time of Evaluation Date of Evaluation: 12/28/18 Time of Evaluation: 11:00 - Subjective Subjective: PGY-1 Neurology Progress Note for Dr. Babb Patient was seen and evaluated today at bedside in no acute distress. Patient was extubated yesterday afternoon. She appears more alert today, but is still minimally cooperative with commands. Unable to obtain ROS due to her nonverbal status. Objective - Vital Signs/Intake and Output Vital Signs (last 24 hours): Temp Pulse Resp BP Pulse Ox 99.5 F 98 H 33 H 151/97 H 100 12/28/18 08:00 12/28/18 10:13 12/28/18 10:13 12/28/18 10:13 12/28/18 10:13 Intake and Output: 12/28/18 12/28/18 06:59 18:59 Intake Total 300 Output Total 1700 Balance -1400 - Medications Medications: Current Medications Acetaminophen (Tylenol 650mg/20.3ml Solution Ud) 650 mg GT Q6 PRN PRN Reason: Temperature Last Admin: 12/24/18 10:31 Dose: 650 mg Aspirin (Aspirin Chewable) 81 mg PO DAILY [facility] Last Admin: 12/28/18 10:19 Dose: 81 mg Enoxaparin Sodium (Lovenox) 30 mg SC DAILY [facility] Last Admin: 12/28/18 09:19 Dose: 30 mg Hydralazine HCl (Apresoline) 25 mg PO Q8H [facility] Last Admin: 12/28/18 10:19 Dose: 25 mg Meropenem 500 mg/ Sodium (Chloride) 100 mls @ 100 mls/hr IVPB Q8H [facility]; Protocol Last Admin: 12/28/18 09:20 Dose: 100 mls/hr Dextrose/Sodium Chloride (Dextrose 5%/0.45% Ns 1000 Ml) 1,000 mls @ 100 mls/hr IV .Q10H [facility] Last Admin: 12/28/18 10:19 Dose: 100 mls/hr Magnesium Sulfate/Dextrose (Magnesium Sulfate 1 Gm/100 Ml D5w) 1 gm in 100 mls @ 200 mls/hr IVPB ONCE ONE Stop: 12/28/18 11:29 Last Admin: 12/28/18 10:20 Dose: 200 mls/hr Insulin Aspart (Novolog) 0 unit SC Q6H [facility]; Protocol Last Admin: 12/28/18 06:15 Dose: Not Given Losartan Potassium (Cozaar) 50 mg PO DAILY [facility] Last Admin: 12/28/18 09:19 Dose: 50 mg Methimazole (Tapazole) 20 mg PO Q12 [facility] Last Admin: 12/28/18 09:19 Dose: 20 mg Pantoprazole Sodium (Protonix Susp) 40 mg PO DAILY [facility] Last Admin: 12/28/18 09:19 Dose: 40 mg Potassium Chloride (Potassium Chloride Oral Soln) 20 meq PO Q2H [facility] Stop: 12/28/18 14:01 Last Admin: 12/28/18 10:19 Dose: 20 meq Propranolol HCl (Inderal) 20 mg PO Q8H [facility] Last Admin: 12/28/18 09:19 Dose: 20 mg Rosuvastatin Calcium (Crestor) 10 mg PO HS [facility] Last Admin: 12/27/18 21:21 Dose: 10 mg - Labs Labs: 12/28/18 06:24 12/28/18 06:22 PT 14.1 SECONDS (9.7-12.2) H 12/26/18 06:07 INR 1.3 12/26/18 06:07 APTT 32 SECONDS (21-34) 12/26/18 06:07 - Constitutional Appears: Non-toxic, No Acute Distress, Confused - Head Exam Head Exam: ATRAUMATIC, NORMOCEPHALIC - Eye Exam Eye Exam: PERRL. absent: Nystagmus Additional comments: tracking and blinking - ENT Exam ENT Exam: Mucous Membranes Dry - Respiratory Exam Respiratory Exam: Clear to Ausculation Bilateral, NORMAL BREATHING PATTERN Additional comments: extubated on RA - Cardiovascular Exam Cardiovascular Exam: Tachycardia, +S1, +S2 - GI/Abdominal Exam GI & Abdominal Exam: Soft, Normal Bowel Sounds. absent: Guarding, Rigid - Exam Additional comments: Perez in place - Extremities Exam Extremities Exam: Normal Capillary Refill Additional comments: pulses palpable bilaterally (radial, DP) bilateral pressure off loading boots - Neurological Exam Neurological Exam: Awake, Reflexes Normal Additional comments: minimally cooperative with exam moving all 4 extremities voluntarily did not hold against gravity on muscle strength testing; unclear if unable to process command or muscle weakness - Psychiatric Exam Psychiatric exam: Flat Affect - Skin Skin Exam: Dry, Intact, Normal Color, Warm Assessment and Plan - Assessment and Plan (Free Text) Assessment: 48yo F with PMH of HTN, TIA, asthma, and Grave's disease admitted for thyroid storm. Neuro was consulted for possible anoxic brain injury as patient coded 3 times of day of admission with ROSC being achieved in less than 10 minutes each time. Patient was intubated on admission on 12/21. She was extubated 12/27. Plan: Probable Anoxic Brain Injury EEG (12/26): Moderate non-specific diffuse disturbance of cortical activity. This aligns with diffuse guillermo matter dysfunction. No seizures, nor in status eplilepticus EEG (12/28): Mild non specific diffuse disturbance of cortical activity. 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 The findings do not suggest a specific etiology. OF NOTE: The EEG has improved significantly from the previous 24 hours, and has continued to improve and became normal at the end of this file 12/27 to 12/28. Patient is tracking and moving all 4 extremities Patient is neurologically stable -f/u MRI brain without contrast d/w Dr. Holley Morrison PGY-1 <Maged Babb - Last Filed: 01/01/19 21:13> Objective - Vital Signs/Intake and Output Vital Signs (last 24 hours): Temp Pulse Resp BP Pulse Ox 99.5 F 116 H 20 139/92 H 97 01/01/19 20:00 01/01/19 20:00 01/01/19 20:00 01/01/19 20:00 01/01/19 20:00 Intake and Output: 01/01/19 01/02/19 18:59 06:59 Intake Total 240 Output Total 500 Balance -260 - Medications Medications: Current Medications Acetaminophen (Tylenol 650mg/20.3ml Solution Ud) 650 mg GT Q6 PRN PRN Reason: Temperature Last Admin: 12/31/18 23:00 Dose: 650 mg Enoxaparin Sodium (Lovenox) 30 mg SC DAILY [facility] Last Admin: 01/01/19 09:00 Dose: 30 mg Glimepiride (Amaryl) 4 mg PO ACBD [facility] Last Admin: 01/01/19 16:49 Dose: 4 mg Insulin Human Regular (Novolin R) 0 unit SC ACHS [facility]; Protocol Last Admin: 01/01/19 16:35 Dose: Not Given Methimazole (Tapazole) 20 mg PO Q8H [facility] Last Admin: 01/01/19 16:49 Dose: 20 mg Metoprolol Tartrate (Lopressor) 75 mg PO BID [facility] Last Admin: 01/01/19 16:59 Dose: 75 mg Pantoprazole Sodium (Protonix Susp) 40 mg PO DAILY [facility] Last Admin: 01/01/19 09:00 Dose: 40 mg Rosuvastatin Calcium (Crestor) 10 mg PO HS [facility] Last Admin: 12/31/18 21:19 Dose: 10 mg Spironolactone (Aldactone) 50 mg PO DAILY [facility] Last Admin: 01/01/19 09:00 Dose: 50 mg - Labs Labs: 01/01/19 05:44 01/01/19 05:41 PT 14.1 SECONDS (9.7-12.2) H 12/26/18 06:07 INR 1.3 12/26/18 06:07 APTT 32 SECONDS (21-34) 12/26/18 06:07 Attending/Attestation - Attestation I have personally seen and examined this patient.: Yes I have fully participated in the care of the patient.: Yes I have reviewed all pertinent clinical information, including history, physical exam and plan: Yes Notes (Text): I agree with the assessment and plan. MRI brain pending for further evaluation
[2018-12-28] MEDS ORDERED: Sodium Chloride 0.45% 1,000 ML IV SCH (12:00)
--- NOTE | 2018-12-28 15:08 | PN ---
DATE: 12/28/2018 ENDOCRINOLOGY FOLLOWUP NOTE LOCATION: Room 18, ICU. SUBJECTIVE: This is a 48-year-old female with recent extubation and improving clinically and hemodynamically as noted thereof. She remains clinically euthyroid at this time and by chemically has improved thyroid indices as noted with the latest thyroxine or T4 level of 11.5 mcg/dL and a TSH of less than 0.02, which still remains suppressed, so as the patient is still hyperthyroid at this time. It takes six months or longer for the TSH to actually normalize, once the patient is clinically and by chemically euthyroid as noted otherwise. We will obtain serial chemistries and as needed. LABORATORY DATA: The chemistry showed a BUN of 34, sodium 159, potassium 2.7, chloride 121, CO2 of 32, glucose 150, and creatinine 1.2. We will repeat thyroxine. Her previous thyroxine done yesterday was 11.5 mcg/dL. ASSESSMENT AND PLAN: So, at this time, we will continue the modified medical therapy for hyperthyroidism using Tapazole given as 20 mg IV every 12 hours as ordered. We will continue the serial cortisol levels as ordered and hold off the resumption of any kind of thyroid replacement as she has remained hemodynamically stable with metabolic control. We will follow and advise accordingly. Linda Weaver MD
--- NOTE | 2018-12-28 15:08 | CP.PCM.PN ---
Subjective - Date & Time of Evaluation Date of Evaluation: 12/28/18 Time of Evaluation: 15:07 - Subjective Subjective: Nephrology Consultation Note: Assessment: Stable Non-oliguric Acute Kidney Injury (N17.9) likely due to renal hypoperfusion due to cardiac arrest/hypotension leading to ATN, had exposure to IV contrast in addition: IMPROVING uncontrolled severe HTN hypokalemia, hyperkalemia, HAGMA/lactic acidosis hypernatremia hypertension (years) obesity hyperthyroidism thyroid storm, cardiac arrest s/p resuscitation BiV failure with LVEF 15%, sepsis Plan No acute need for renal replacement therapy at this time. Hypertension control with meds as ordered. Maintain hemodynamics stable. Avoid hypotension. Patient not on ACEI/ARB due to recent TANVI but as TANVI better and BP hgih, CHF, will add losartan 50 mg/d. agree with beta-blockers Monitor Input/Output, daily weights and renal function with basic metabolic panel supplement lytes as needed endocrine and cardiology following free water flushes continue hypernatremia worsenng and pt polyuric, suggest D5W instead of 0.45% saline renal sono once she is stable Dose meds/antibiotics for improved GFR. Glycemic control Further work up/management as per primary team Thanks for allowing me to participate in care of your patient. Will follow patient with you. Please call if any Qs. had d/w team Dr Darshan Call Office: [phone] Chief Complaint; unable Reason for consult: Acute Kidney Injury HPI: Pt is a 48 F with hx of hypertension (years) obesity hyperthyroidism presented with complaints of pain abdomen and found to have thyroid storm, cardi ac arrest s/p resuscitation, foudn to have BiV failure with LVEF 15%, sepsis and also with TANVI hence renal consulted no known OTC/herbal meds or NSAIDs Noted recent iodinated contrast exposure as CTA. Noted obvious episodes of low BP. ROS: unable to obtain from pt. pt extubated but not much coomunicative Physical Examination: General Appearance: Comfortable, in no acute respiratory distress, ill appearing extubated Vitals reviewed and noted as below Head; Atraumatic, normocephalic ENT: no ulcers no thrush. Tongue is midline. Oropharynx: no rash or ulcers. EYES: Pupils are equal, round and sluggish to light accommodation. Eye muscles and extraocular movement intact. Sclera is anicteric. Neck; supple no lymphadenopathy, gross thyromegaly noted Lungs: Normal respiratory rate/effort. Breath sounds b/l clearer Heart: Increased rate. s1s2 normal. No rub or gallop. Extremities: no edema. No varicose veins Neurological: Patient is awake and able to follow commands Skin: Warm and dry. Normal turgor. No rash. Palpitation: Normal elasticity for age Abdomen: Abdomen is soft. Bowel sounds +. There is no abdominal tenderness, no guarding/rigidity no organomegaly Psych: unable MSK: no joint tenderness or swelling. Digits and nails normal, no deformity : kidney or bladder not palpable Labs/imaging reviewed. Past medical history, past surgical history, family history, social history, allergy reviewed and noted as below Family hx: no hx of CKD. Rest non-contributory Objective - Vital Signs/Intake and Output Vital Signs (last 24 hours): Temp Pulse Resp BP Pulse Ox 100.5 F H 102 H 37 H 137/89 100 12/28/18 12:00 12/28/18 14:14 12/28/18 14:14 12/28/18 14:14 12/28/18 14:14 Intake and Output: 12/28/18 12/28/18 06:59 18:59 Intake Total 300 730 Output Total 1700 Balance -1400 730 - Medications Medications: Current Medications Acetaminophen (Tylenol 650mg/20.3ml Solution Ud) 650 mg GT Q6 PRN PRN Reason: Temperature Last Admin: 12/24/18 10:31 Dose: 650 mg Aspirin (Aspirin Chewable) 81 mg PO DAILY [facility] Last Admin: 12/28/18 10:19 Dose: 81 mg Enoxaparin Sodium (Lovenox) 30 mg SC DAILY [facility] Last Admin: 12/28/18 09:19 Dose: 30 mg Hydralazine HCl (Apresoline) 25 mg PO Q8H [facility] Last Admin: 12/28/18 10:19 Dose: 25 mg Meropenem 500 mg/ Sodium (Chloride) 100 mls @ 100 mls/hr IVPB Q8H [facility]; Protocol Last Admin: 12/28/18 09:20 Dose: 100 mls/hr Sodium Chloride (Sodium Chloride 0.45%) 1,000 mls @ 70 mls/hr IV .[id number] [facility] Last Admin: 12/28/18 12:03 Dose: 70 mls/hr Insulin Aspart (Novolog) 0 unit SC Q6H [facility]; Protocol Last Admin: 12/28/18 11:46 Dose: 2 u Losartan Potassium (Cozaar) 50 mg PO DAILY [facility] Last Admin: 12/28/18 09:19 Dose: 50 mg Methimazole (Tapazole) 20 mg PO Q12 [facility] Last Admin: 12/28/18 09:19 Dose: 20 mg Pantoprazole Sodium (Protonix Susp) 40 mg PO DAILY [facility] Last Admin: 12/28/18 09:19 Dose: 40 mg Propranolol HCl (Inderal) 20 mg PO Q8H [facility] Last Admin: 12/28/18 09:19 Dose: 20 mg Rosuvastatin Calcium (Crestor) 10 mg PO HS [facility] Last Admin: 12/27/18 21:21 Dose: 10 mg - Labs Labs: 12/28/18 06:24 12/28/18 06:22 PT 14.1 SECONDS (9.7-12.2) H 12/26/18 06:07 INR 1.3 12/26/18 06:07 APTT 32 SECONDS (21-34) 12/26/18 06:07
[2018-12-28 16:02] LABS: TSI >700 % baseline (<140)
[2018-12-28 17:35] LABS: CALCIUM 8.3 mg/dl (8.6-10.4)
[2018-12-28] MEDS ORDERED: Phenylephrine 30 MG in Dextrose 5% In Water 250 ML IV PRN (19:28)
--- NOTE | 2018-12-28 19:44 | CP.PCM.PN ---
Subjective - Date & Time of Evaluation Date of Evaluation: 12/28/18 - Subjective Subjective: patient seen and examined at bedside no nausea no vomiting no dizziness no fever denies SOB Objective - Vital Signs/Intake and Output Vital Signs (last 24 hours): Temp Pulse Resp BP Pulse Ox 98.9 F 113 H 30 H 75/39 L 100 12/28/18 16:00 12/28/18 19:41 12/28/18 19:41 12/28/18 19:41 12/28/18 19:41 Intake and Output: 12/28/18 12/29/18 18:59 06:59 Intake Total 1250 140 Output Total 650 Balance 600 140 - Medications Medications: Current Medications Acetaminophen (Tylenol 650mg/20.3ml Solution Ud) 650 mg GT Q6 PRN PRN Reason: Temperature Last Admin: 12/24/18 10:31 Dose: 650 mg Aspirin (Aspirin Chewable) 81 mg PO DAILY [facility] Last Admin: 12/28/18 10:19 Dose: 81 mg Enoxaparin Sodium (Lovenox) 30 mg SC DAILY [facility] Last Admin: 12/28/18 09:19 Dose: 30 mg Meropenem 500 mg/ Sodium (Chloride) 100 mls @ 100 mls/hr IVPB Q8H [facility]; Protocol Last Admin: 12/28/18 17:14 Dose: 100 mls/hr Dextrose (Dextrose 5% In Water 1000 Ml) 1,000 mls @ 100 mls/hr IV .Q10H [facility] Last Admin: 12/28/18 15:31 Dose: 100 mls/hr Phenylephrine HCl 30 mg/ (Dextrose) 253 mls @ 10.12 mls/hr IV .Q24H [facility]; Protocol PRN Reason: TITRATE PER MD ORDER Last Admin: 12/28/18 19:41 Dose: 20 mcg/min, 10.12 mls/hr Insulin Aspart (Novolog) 0 unit SC Q6H [facility]; Protocol Last Admin: 12/28/18 18:14 Dose: 2 u Methimazole (Tapazole) 20 mg PO Q12 [facility] Last Admin: 12/28/18 09:19 Dose: 20 mg Pantoprazole Sodium (Protonix Susp) 40 mg PO DAILY [facility] Last Admin: 12/28/18 09:19 Dose: 40 mg Rosuvastatin Calcium (Crestor) 10 mg PO HS [facility] Last Admin: 12/27/18 21:21 Dose: 10 mg - Labs Labs: 12/28/18 06:24 12/28/18 17:06 PT 14.1 SECONDS (9.7-12.2) H 12/26/18 06:07 INR 1.3 12/26/18 06:07 APTT 32 SECONDS (21-34) 12/26/18 06:07 - Constitutional Appears: Well - Head Exam Head Exam: ATRAUMATIC, NORMAL INSPECTION, NORMOCEPHALIC - Eye Exam Eye Exam: EOMI, Normal appearance, PERRL Pupil Exam: NORMAL ACCOMODATION, PERRL - ENT Exam ENT Exam: Mucous Membranes Moist, Normal Exam - Neck Exam Neck Exam: Full ROM, Normal Inspection. absent: Lymphadenopathy - Respiratory Exam Respiratory Exam: Decreased Breath Sounds - Cardiovascular Exam Cardiovascular Exam: REGULAR RHYTHM, +S1, +S2 - GI/Abdominal Exam GI & Abdominal Exam: Soft, Diminished Bowel Sounds - Rectal Exam Rectal Exam: Deferred Assessment and Plan - Assessment and Plan (Free Text) Plan: chest xray reviewed labs and vitals reviewed medications reviewed aspiring chewable tabs crestor dextrose 5% in water 1000ml lovenox magnesium sulfate 1gm/100 ml d5w merrem iv novolog phenylephrine inj protonix susp sodium carbonate 8.4% tapazole trandate tylenol 650mg/20.3ml solution UD
[2018-12-29] MEDS: (Novolog) Insulin Aspart, Recombinant 100 u/ml 10 ml vial SC SCH ×4 (00:31→17:33)
[2018-12-29] MEDS: Meropenem 500 MG in Sodium Chloride 0.9% 100 ML IVPB SCH ×3 (01:32→17:30)
[2018-12-29 06:10] LABS: BASO % 0.2 % (0.0-2.0); EOS % 0.3 % (0.0-4.0); HEMOGLOBIN 13.1 g/dL (11.0-16.0); LYMPH # 2.3 K/uL (1.0-4.3); LYMPH % 15.6 % (20.0-40.0); MEAN CELL VOLUME 89.2 fL (81.0-99.0); MEAN CORPUSCULAR HEMOGLOBIN 28.7 pg (27.0-31.0); MEAN CORPUSCULAR HGB CONC 32.2 g/dL (33.0-37.0); MEAN PLATELET VOLUME 10.1 fL (7.2-11.7); MONO # 1.4 K/uL (0.0-0.8); MONO % 9.6 % (0.0-10.0); NEUT % 74.3 % (50.0-75.0); NRBC % 0.1 % (0.0-2.0); RBC 4.56 Mil/uL (3.80-5.20); WHITE BLOOD COUNT 14.8 K/uL (4.8-10.8)
--- NOTE | 2018-12-29 06:33 | CP.PCM.PN ---
Subjective - Date & Time of Evaluation Date of Evaluation: 12/29/18 Time of Evaluation: 06:53 - Subjective Subjective: Pgy3 Internal Medicine Resident Endocrinology Progress note for Dr. Weaver Patient seen and examined at bedside. Overnight events noted. Patient still weak and failed speech/swallow day prior so NGT in place. She is communicable and responds to questioning with nodding her head but too weak to hold a conversatio n. Patient denied any pain. Complete ROS unobtainable secondary to clinical condition. Objective - Vital Signs/Intake and Output Vital Signs (last 24 hours): Temp Pulse Resp BP Pulse Ox 98.3 F 122 H 29 H 89/47 L 100 12/29/18 04:00 12/29/18 06:02 12/29/18 06:02 12/29/18 06:02 12/29/18 06:02 Intake and Output: 12/28/18 12/29/18 18:59 06:59 Intake Total 1250 1928 Output Total 650 300 Balance 600 1628 - Medications Medications: Current Medications Acetaminophen (Tylenol 650mg/20.3ml Solution Ud) 650 mg GT Q6 PRN PRN Reason: Temperature Last Admin: 12/24/18 10:31 Dose: 650 mg Aspirin (Aspirin Chewable) 81 mg PO DAILY [facility] Last Admin: 12/28/18 10:19 Dose: 81 mg Enoxaparin Sodium (Lovenox) 30 mg SC DAILY [facility] Last Admin: 12/28/18 09:19 Dose: 30 mg Meropenem 500 mg/ Sodium (Chloride) 100 mls @ 100 mls/hr IVPB Q8H [facility]; Protocol Last Admin: 12/29/18 01:32 Dose: 100 mls/hr Dextrose (Dextrose 5% In Water 1000 Ml) 1,000 mls @ 100 mls/hr IV .Q10H [facility] Last Admin: 12/29/18 00:32 Dose: 100 mls/hr Phenylephrine HCl 30 mg/ (Dextrose) 253 mls @ 10.12 mls/hr IV .Q24H [facility]; Protocol PRN Reason: TITRATE PER MD ORDER Last Titration: 12/29/18 01:37 Dose: 0 mcg/min, 0 mls/hr Insulin Aspart (Novolog) 0 unit SC Q6H [facility]; Protocol Last Admin: 12/29/18 00:31 Dose: 3 u Methimazole (Tapazole) 20 mg PO Q12 [facility] Last Admin: 12/28/18 21:44 Dose: 20 mg Pantoprazole Sodium (Protonix Susp) 40 mg PO DAILY [facility] Last Admin: 12/28/18 09:19 Dose: 40 mg Rosuvastatin Calcium (Crestor) 10 mg PO HS [facility] Last Admin: 12/28/18 21:44 Dose: 10 mg - Labs Labs: 12/29/18 06:06 12/28/18 17:06 PT 14.1 SECONDS (9.7-12.2) H 12/26/18 06:07 INR 1.3 12/26/18 06:07 APTT 32 SECONDS (21-34) 12/26/18 06:07 - Additional Findings Additional findings: - Constitutional Appears: Non-toxic, No Acute Distress - Head Exam Head Exam: ATRAUMATIC, NORMOCEPHALIC - Eye Exam Eye Exam: PERRL. absent: Nystagmus Additional comments: tracking and blinking - ENT Exam ENT Exam: Mucous Membranes Dry - Respiratory Exam Respiratory Exam: Clear to Ausculation Bilateral, NORMAL BREATHING PATTERN Additional comments: NC in place - Cardiovascular Exam Cardiovascular Exam: Tachycardia, +S1, +S2 - GI/Abdominal Exam GI & Abdominal Exam: Soft, Normal Bowel Sounds. absent: Guarding, Rigid - Extremities Exam Extremities Exam: Normal Capillary Refill Additional comments: b/l pressure off loading boots in place - Neurological Exam Neurological Exam: Awake, Alert Additional comments: minimally cooperative with exam; moves all 4 extremities voluntarily - Psychiatric Exam Psychiatric exam: Flat Affect - Skin Skin Exam: Dry, Intact, Normal Color, Warm Assessment and Plan - Assessment and Plan (Free Text) Assessment: 48yo female PMHx HTN, Hyperthyroidism, TIA, anxiety, asthma and Grave's dx presented to the ER overnight with complaints of severe abdominal pain, nausea, and vomiting. Patient had cardiac arrest x 3 and ROSC was achieved. Admitted to MICU for further management. Endocrinology consulted for possible thyroid storm. Plan: Overnight events, imaging, and blood work noted. T4 12.4 TSH < 0.02, and AM Cortisol 36.4. Continue Tapazole to 20q12. Will continue to monitor blood work. Continue to correct electrolyte abnl. Continue management as per primary and MICU team. Patient will need close endocrine follow up as outpatient; patient is a candidate for radioactive ablation therapy of thyroid but this will be need to be done outpatient and Tapazole will need to be held for 7-10 days prior to procedure. Discussed with Dr. Owen Crowell PGY3
[2018-12-29 06:57] LABS: ALB/GLOB RATIO 0.9 (1.0-2.1); ALBUMIN 3.2 g/dL (3.5-5.0); ALT/SGPT 40 U/L (9-52); AST/SGOT 41 U/L (14-36); BLOOD UREA NITROGEN 47 mg/dL (7-17); CALCIUM 8.2 mg/dl (8.6-10.4); GFR NON-AFRICAN AMERICAN 37
[2018-12-29] MEDS: Pantoprazole 40 mg Susp UD PO SCH (09:52)
[2018-12-29] MEDS: Potassium Chloride 20 mEq/15 ml LIQ UD PO SCH ×3 (09:52→13:00)
[2018-12-29] MEDS: Enoxaparin 30 mg Syringe SC SCH (09:52)
--- NOTE | 2018-12-29 11:58 | CP.CCUPN ---
<Moncho Karimi - Last Filed: 12/29/18 18:00> CCU Subjective - Physician Review Subjective (Free Text): ICU Progress Note for Dr. Shin Pt seen and examined at bedside this am. S/p extubation, saturating well. Unable to obtain further HPI or ROS due to current clinical status. Hypotensive overnight, bp meds placed on hold, placed on pressor drip. Pending speech/swallow eval. CCU Objective - Vital Signs / Intake & Output Vital Signs (Last 4 hours): Vital Signs Temp Pulse Resp BP Pulse Ox 12/29/18 11:43 110 H 25 H 87/51 L 100 12/29/18 11:28 77/42 L 12/29/18 11:24 106 H 27 H 66/38 L 100 12/29/18 11:20 109 H 28 H 74/39 L 100 12/29/18 11:16 105 H 27 H 62/30 L 100 12/29/18 11:15 104 H 26 H 56/29 L 100 12/29/18 11:11 104 H 27 H 56/24 L 100 12/29/18 11:05 102 H 28 H 53/26 L 100 12/29/18 11:02 103 H 28 H 49/26 L 100 12/29/18 11:00 104 H 29 H 138/75 100 12/29/18 10:01 146 H 22 138/75 100 12/29/18 10:00 153 H 47 H 129/69 100 12/29/18 09:01 128 H 27 H 129/69 100 12/29/18 09:00 127 H 27 H 130/71 100 12/29/18 08:06 146 H 29 H 100 12/29/18 08:00 99.9 F H 117 H 23 95/56 L 100 Intake and Output (Last 8hrs): Intake & Output 12/28/18 12/29/18 12/29/18 22:59 06:59 14:59 Intake Total 1160 1288 500 Output Total 450 300 Balance 710 988 500 Weight 147 lb 9 oz Intake: IV 53 Intake, IV Amount 800 915 500 PIERRE midline 100 Right Upper arm 30 15 pierre midline 770 800 500 Oral 310 320 Other 50 Output: Urine 450 300 Urine, Voided 450 300 Other: # Bowel Movements 1 1 - Physical Exam Head: Positive for: Atraumatic, Normocephalic Pupils: Positive for: PERRL Extroacular Muscles: Positive for: EOMI. Negative for: Gaze Palsy Conjunctiva: Positive for: Normal Mouth: Positive for: Moist Mucous Membranes Neck: Positive for: Normal Range of Motion, Trachea Midline. Negative for: Meningeal Signs, MIDLINE TENDERNESS, Paraspinal Tenderness, JVD, Lymphadenopathy, Bruit, Other Respiratory/Chest: Positive for: Clear to Auscultation, Good Air Exchange, Other (s/p extubation). Negative for: Respiratory Distress, Accessory Muscle Use, Wheezes, Rales, Rhonchi Cardiovascular: Positive for: Normal S1, S2, Tachycardic. Negative for: Murmurs, Rub, Gallop Abdomen: Positive for: Normal Bowel Sounds. Negative for: Tenderness, Distention, Mass/Organomegaly Upper Extremity: Positive for: Normal Inspection, NORMAL PULSES, Neurovascularly Intact, Capillary Refill < 2s. Negative for: Cyanosis, Edema Lower Extremity: Positive for: Normal Inspection, NORMAL PULSES, Neurovascularly Intact, Capillary Refill < 2 s. Negative for: Edema Neurological: Positive for: Other (s/p extubation this am, able to track eyes in response to voice, verbal on exam) Skin: Positive for: Warm, Dry, Normal Color Psychiatric: Positive for: Alert - Medications Active Medications: Active Medications Generic Name Dose Route Start Last Admin Trade Name Freq PRN Reason Stop Dose Admin Acetaminophen 650 mg 12/21/18 15:53 12/24/18 10:31 Tylenol 650mg/20.3ml Solution Ud GT 650 mg Q6 PRN Administration Temperature Aspirin 81 mg 12/24/18 10:00 12/29/18 09:53 Aspirin Chewable PO 81 mg DAILY [place] Administration Enoxaparin Sodium 30 mg 12/23/18 10:00 12/29/18 09:52 Lovenox SC 30 mg DAILY [place] Administration Meropenem 500 mg/ Sodium 100 mls @ 100 mls/hr 12/24/18 18:00 12/29/18 10:07 Chloride IVPB 100 mls/hr Q8H [place] Administration Protocol Phenylephrine HCl 30 mg/ 253 mls @ 10.12 mls/hr 12/28/18 19:28 12/29/18 01:37 Dextrose IV 0 mcg/min .Q24H PRN 0 mls/hr TITRATE PER MD ORDER Titration Protocol 20 MCG/MIN Sodium Chloride 1,000 mls @ 100 mls/hr 12/29/18 11:45 Sodium Chloride 0.45% IV .Q10H [place] Insulin Aspart 0 unit 12/24/18 12:00 12/29/18 00:31 Novolog SC 3 u Q6H [place] Administration Protocol Methimazole 20 mg 12/27/18 22:00 12/29/18 09:53 Tapazole PO 20 mg Q12 [place] Administration Pantoprazole Sodium 40 mg 12/28/18 10:00 12/29/18 09:52 Protonix Susp PO 40 mg DAILY [place] Administration Potassium Chloride 20 meq 12/29/18 09:15 12/29/18 09:52 Potassium Chloride Oral Soln PO 12/29/18 13:16 20 meq Q2H [place] Administration Rosuvastatin Calcium 10 mg 12/25/18 22:00 12/28/18 21:44 Crestor PO 10 mg HS [place] Administration - Patient Studies Lab Studies: Lab Studies 12/29/18 12/29/18 12/29/18 Range/Units 06:06 06:06 06:06 WBC 14.8 H (4.8-10.8) K/uL RBC 4.56 (3.80-5.20) Mil/uL Hgb 13.1 (11.0-16.0) g/dL Hct 40.7 (34.0-47.0) % MCV 89.2 (81.0-99.0) fL MCH 28.7 (27.0-31.0) pg MCHC 32.2 L (33.0-37.0) g/dL RDW 15.0 H (11.5-14.5) % Plt Count 203 (130-400) K/uL MPV 10.1 (7.2-11.7) fL Neut % (Auto) 74.3 (50.0-75.0) % Lymph % (Auto) 15.6 L (20.0-40.0) % [place] % (Auto) 9.6 (0.0-10.0) % Eos % (Auto) 0.3 (0.0-4.0) % Baso % (Auto) 0.2 (0.0-2.0) % Neut # (Auto) 11.0 H (1.8-7.0) K/uL Lymph # (Auto) 2.3 (1.0-4.3) K/uL [place] # (Auto) 1.4 H (0.0-0.8) K/uL Eos # (Auto) 0.0 (0.0-0.7) K/uL Baso # (Auto) 0.0 (0.0-0.2) K/uL Sodium 158 H (132-148) mmol/L Potassium 3.0 L (3.6-5.2) mmol/L Chloride 119 H (98-107) mmol/L Carbon Dioxide 32 H (22-30) mmol/L Anion Gap 10 (10-20) BUN 47 H (7-17) mg/dL Creatinine 1.5 H (0.7-1.2) mg/dL Est GFR ( Amer) 45 Est GFR (Non-Af Amer) 37 POC Glucose (mg/dL) (65-110) mg/dL Random Glucose 326 H D (65-105) mg/dL Calcium 8.2 L (8.6-10.4) mg/dl Phosphorus 3.2 (2.5-4.5) mg/dL Magnesium 1.9 (1.6-2.3) mg/dL Total Bilirubin 0.6 (0.2-1.3) mg/dL AST 41 H (14-36) U/L ALT 40 (9-52) U/L Alkaline Phosphatase 98 (38-126) U/L Total Protein 6.6 (6.3-8.3) g/dL Albumin 3.2 L (3.5-5.0) g/dL Globulin 3.4 (2.2-3.9) gm/dL Albumin/Globulin Ratio 0.9 L (1.0-2.1) Thyroxine (T4) 12.4 H (5.5-11.0) ug/dL TSH 3rd Generation < 0.02 L (0.46-4.68) mIU/L Thyroid Stim Immunoglob (<140) % baseline Cortisol AM Sample 36.4 H (4.46-22.7) ug/dL 12/29/18 12/28/18 12/28/18 Range/Units 05:29 23:49 18:08 WBC (4.8-10.8) K/uL RBC (3.80-5.20) Mil/uL Hgb (11.0-16.0) g/dL Hct (34.0-47.0) % MCV (81.0-99.0) fL MCH (27.0-31.0) pg MCHC (33.0-37.0) g/dL RDW (11.5-14.5) % Plt Count (130-400) K/uL MPV (7.2-11.7) fL Neut % (Auto) (50.0-75.0) % Lymph % (Auto) (20.0-40.0) % [place] % (Auto) (0.0-10.0) % Eos % (Auto) (0.0-4.0) % Baso % (Auto) (0.0-2.0) % Neut # (Auto) (1.8-7.0) K/uL Lymph # (Auto) (1.0-4.3) K/uL [place] # (Auto) (0.0-0.8) K/uL Eos # (Auto) (0.0-0.7) K/uL Baso # (Auto) (0.0-0.2) K/uL Sodium (132-148) mmol/L Potassium (3.6-5.2) mmol/L Chloride (98-107) mmol/L Carbon Dioxide (22-30) mmol/L Anion Gap (10-20) BUN (7-17) mg/dL Creatinine (0.7-1.2) mg/dL Est GFR ( Amer) Est GFR (Non-Af Amer) POC Glucose (mg/dL) 294 H 251 H 246 H (65-110) mg/dL Random Glucose (65-105) mg/dL Calcium (8.6-10.4) mg/dl Phosphorus (2.5-4.5) mg/dL Magnesium (1.6-2.3) mg/dL Total Bilirubin (0.2-1.3) mg/dL AST (14-36) U/L ALT (9-52) U/L Alkaline Phosphatase (38-126) U/L Total Protein (6.3-8.3) g/dL Albumin (3.5-5.0) g/dL Globulin (2.2-3.9) gm/dL Albumin/Globulin Ratio (1.0-2.1) Thyroxine (T4) (5.5-11.0) ug/dL TSH 3rd Generation (0.46-4.68) mIU/L Thyroid Stim Immunoglob (<140) % baseline Cortisol AM Sample (4.46-22.7) ug/dL 12/28/18 12/22/18 Range/Units 17:06 08:00 WBC (4.8-10.8) K/uL RBC (3.80-5.20) Mil/uL Hgb (11.0-16.0) g/dL Hct (34.0-47.0) % MCV (81.0-99.0) fL MCH (27.0-31.0) pg MCHC (33.0-37.0) g/dL RDW (11.5-14.5) % Plt Count (130-400) K/uL MPV (7.2-11.7) fL Neut % (Auto) (50.0-75.0) % Lymph % (Auto) (20.0-40.0) % [place] % (Auto) (0.0-10.0) % Eos % (Auto) (0.0-4.0) % Baso % (Auto) (0.0-2.0) % Neut # (Auto) (1.8-7.0) K/uL Lymph # (Auto) (1.0-4.3) K/uL [place] # (Auto) (0.0-0.8) K/uL Eos # (Auto) (0.0-0.7) K/uL Baso # (Auto) (0.0-0.2) K/uL Sodium 161 H* (132-148) mmol/L Potassium 3.8 (3.6-5.2) mmol/L Chloride 123 H (98-107) mmol/L Carbon Dioxide 32 H (22-30) mmol/L Anion Gap 9 L (10-20) BUN 40 H (7-17) mg/dL Creatinine 1.6 H (0.7-1.2) mg/dL Est GFR ( Amer) 41 Est GFR (Non-Af Amer) 34 POC Glucose (mg/dL) (65-110) mg/dL Random Glucose 239 H D (65-105) mg/dL Calcium 8.3 L (8.6-10.4) mg/dl Phosphorus (2.5-4.5) mg/dL Magnesium (1.6-2.3) mg/dL Total Bilirubin (0.2-1.3) mg/dL AST (14-36) U/L ALT (9-52) U/L Alkaline Phosphatase (38-126) U/L Total Protein (6.3-8.3) g/dL Albumin (3.5-5.0) g/dL Globulin (2.2-3.9) gm/dL Albumin/Globulin Ratio (1.0-2.1) Thyroxine (T4) (5.5-11.0) ug/dL TSH 3rd Generation (0.46-4.68) mIU/L Thyroid Stim Immunoglob >700 H (<140) % baseline Cortisol AM Sample (4.46-22.7) ug/dL Laboratory Results - last 24 hr 12/22/18 12/28/18 12/28/18 08:00 17:06 18:08 WBC RBC Hgb Hct MCV MCH MCHC RDW Plt Count MPV Neut % (Auto) Lymph % (Auto) [place] % (Auto) Eos % (Auto) Baso % (Auto) Neut # (Auto) Lymph # (Auto) [place] # (Auto) Eos # (Auto) Baso # (Auto) Sodium 161 H* Potassium 3.8 Chloride 123 H Carbon Dioxide 32 H Anion Gap 9 L BUN 40 H Creatinine 1.6 H Est GFR ( Amer) 41 Est GFR (Non-Af Amer) 34 POC Glucose (mg/dL) 246 H Random Glucose 239 H D Calcium 8.3 L Phosphorus Magnesium Total Bilirubin AST ALT Alkaline Phosphatase Total Protein Albumin Globulin Albumin/Globulin Ratio Thyroxine (T4) TSH 3rd Generation Thyroid Stim Immunoglob >700 H Cortisol AM Sample 12/28/18 12/29/18 12/29/18 23:49 05:29 06:06 WBC RBC Hgb Hct MCV MCH MCHC RDW Plt Count MPV Neut % (Auto) Lymph % (Auto) [place] % (Auto) Eos % (Auto) Baso % (Auto) Neut # (Auto) Lymph # (Auto) [place] # (Auto) Eos # (Auto) Baso # (Auto) Sodium 158 H Potassium 3.0 L Chloride 119 H Carbon Dioxide 32 H Anion Gap 10 BUN 47 H Creatinine 1.5 H Est GFR ( Amer) 45 Est GFR (Non-Af Amer) 37 POC Glucose (mg/dL) 251 H 294 H Random Glucose 326 H D Calcium 8.2 L Phosphorus 3.2 Magnesium 1.9 Total Bilirubin 0.6 AST 41 H ALT 40 Alkaline Phosphatase 98 Total Protein 6.6 Albumin 3.2 L Globulin 3.4 Albumin/Globulin Ratio 0.9 L Thyroxine (T4) 12.4 H TSH 3rd Generation < 0.02 L Thyroid Stim Immunoglob Cortisol AM Sample 12/29/18 12/29/18 06:06 06:06 WBC 14.8 H RBC 4.56 Hgb 13.1 Hct 40.7 MCV 89.2 MCH 28.7 MCHC 32.2 L RDW 15.0 H Plt Count 203 MPV 10.1 Neut % (Auto) 74.3 Lymph % (Auto) 15.6 L [place] % (Auto) 9.6 Eos % (Auto) 0.3 Baso % (Auto) 0.2 Neut # (Auto) 11.0 H Lymph # (Auto) 2.3 [place] # (Auto) 1.4 H Eos # (Auto) 0.0 Baso # (Auto) 0.0 Sodium Potassium Chloride Carbon Dioxide Anion Gap BUN Creatinine Est GFR ( Amer) Est GFR (Non-Af Amer) POC Glucose (mg/dL) Random Glucose Calcium Phosphorus Magnesium Total Bilirubin AST ALT Alkaline Phosphatase Total Protein Albumin Globulin Albumin/Globulin Ratio Thyroxine (T4) TSH 3rd Generation Thyroid Stim Immunoglob Cortisol AM Sample 36.4 H Fingerstick Blood Sugar Results: 294 Review of Systems - Review of Systems Systems not reviewed;Unavailable: Altered Mental Status Assessment/Plan - Assessment and Plan (Free Text) Assessment: 48 y o female PMhx HTN, hyperthyroidism, TIA, anxiety, asthma, Grave's disease, who presented to the ED overnight with c/o severe abd pain, n/v. Per ED pt did not take home meds for about 3 wks, non-compliant with therapy. Pt presented hypertensive and tachycardic in ED, TSH < 0.02 on initial bloodwork, was given IV Labetalol and PO Inderal in the ED. Pt's bp began to drop after and was given fluids and IV glucagon. Pt was evaluated and accepted by ICU team at time, however prior to transfer, started to become bradycardic and went pulseless. Code Blue was called in ED and pt was resuscitated, ROSC achieved s/p epi x1. Pt subsequently was intubated and placed on mechanical vent. Pt had 2 additional episodes of cardiac arrest while being transferred to ICU that lasted 3-4 mins of chest compressions, received total epi x3 and atropine x1. ROSC achieved, pt had R femoral line placed, started on Levophed drip. Bedside echo revealed severely dilated R ventricle, raising suspicion for possible PE, pt was bolused and started on Heparin drip. CT angio demonstrated no evidence of PE, heparin drip was d/c'd. Pt also has severe hypokinesis of L ventricle. Pt presented with severe metabolic acidosis, hyperkalemia and hypoglycemia. S/p 4 amps bicarb, 1 amp Ca gluconate, 1 amp D50. Currently being monitored in ICU, s/p extubation. Admitted to ICU for management of thyrotoxicosis. Hypotensive, bp meds on hold, pressor therapy added. Pending speech/swallow eval. Plan: Neuro: -S/p extubation -Speech and swallow eval pending -Cont to monitor -Head CT on admission: Limited study given suboptimal pt positing. Streak artifact in posterior fossa limits eval at that level. No acute intracranial abnormality. -Neurology (Dr. Gill) consulted for ?anoxic brain injury, recs appreciated -Video EEG 12/26: Moderate background slowing/attenuation and disorganization of EEG. No seizures, not in status epilepticus. -Repeat video EEG 12/27: improved significantly in past 24 hrs, became normal at end of file -MRI brain ordered as per Neuro recs Cardio: -Tachycardia persistent, hypotensive -Levophed and Phenylephrine drips for hypotension -HTN meds held for hypotension -Solu-cortef d/c'd as per Endo recs -Echo: LV function severely reduced with diffuse hypokinesis, LVEF 15%. Inferoapex and apical-septum akinetic. LSub optimal assessment of wall motion due to reduced study quality, apex not well seen. IV echo contrast would have improved assessment. R ventricle mod-markedly dilated. RVSF mod reduced. Mild aortic regurg. Mod tricuspid regurg. Ascending aorta mildly dilated. -Repeat echo ordered -Hyperkalemia resolved, cont to trend on labs -Venous duplex LE b/l neg for DVT -Cardiology consulted (Dr. Bah), recs appreciated -CT angio chest neg for PE, Heparin drip d/c'd -Consider repeat echo to re-eval LV function/RV function as per Cardio recs Pulm: -S/p extubation, saturating well, cont to monitor -Metabolic acidosis resolved with most recent ABG -Recent CXR: S/p removal of ET tube, possible very small L pleural effusion. Otherwise no change -Leukocytosis GI: -NPO -Tube feeds -D5W @ 100 cc/hr as per Nephro recs for Hypernatremia, pt demonstrating large urine output -Protonix -Transaminitis resolving, may be 2/2 to shock liver 2/2 to cardiac arrest, cont to trend Heme: -H/H stable, cont to trend -Leukocytosis this am, cont to trend ID: -Leukocytosis, cont to trend -Anbx changed to Merrem as per ID recs -ID consulted, Dr. Strange, recs appreciated -Blood cx NGTD -Urine and sputum cxs neg Endo: -Hx Grave's disease, pt non-compliant with home meds x3 weeks -TSH < 0.02 on admission, recent level the same -R/o thyroid storm? as etiology of symptoms, thyrotoxicosis -Endocrinology (Dr. Weaver) consulted, recs appreciated -Methimazole 20 mg PO q12h, Solu-cortef d/c'd -T4 elevated, thyroperoxidase Ab positive, Thyroglobulin Ab neg; serum cortisol elevated on 12/24 -Pt may be candidate for radioactive ablation therapy of thyroid but will need to be done as outpt; Tapazole needs to be held for 7-10 days prior to procedure -Will likely need close endocrinology f/u as outpatient Renal: -BUN/Cr trending down, cont to monitor -Cont to trend I's/O's -Hypernatremia improving, D5W d/c'd as per Nephro, switched to 0.45% saline at 100 cc/hr -renal sono once stable -Nephro consulted for TANVI (Dr. Call), recs appreciated PPX: -Protonix -Lovenox, SCD -PT eval ordered Pt seen, examined with, and plan discussed with Dr. Shin, attending physician. Moncho Karimi DO PGY-1, Public Health Training Assistant Pager #[phone] <Nehemiah Shin - Last Filed: 12/29/18 18:32> CCU Objective - Vital Signs / Intake & Output Vital Signs (Last 4 hours): Vital Signs Temp Pulse Resp BP Pulse Ox 12/29/18 18:04 138 H 26 H 12/29/18 18:00 134 H 22 150/76 100 12/29/18 17:03 135 H 24 100 12/29/18 17:00 136 H 23 119/66 100 12/29/18 16:00 98.3 F 116 H 23 107/55 L 100 12/29/18 15:25 138 H 27 H 87/47 L 100 12/29/18 15:21 139 H 17 71/38 L 100 12/29/18 15:05 133 H 19 80/36 L 100 12/29/18 15:00 128 H 21 107/59 L 100 12/29/18 14:42 125 H 27 H 100 Intake and Output (Last 8hrs): Intake & Output 12/29/18 12/29/18 12/29/18 06:59 14:59 22:59 Intake Total 1288 1115 845 Output Total 300 600 Balance 988 1115 245 Weight 147 lb 9 oz Intake: IV 53 100 0 Intake, IV Amount 915 1015 845 Left Antecubital 215 345 PIERRE midline 100 100 Right Upper arm 15 pierre midline 800 800 400 Oral 320 Output: Urine 300 600 Urine, Voided 300 600 Other: # Bowel Movements 1 - Medications Active Medications: Active Medications Generic Name Dose Route Start Last Admin Trade Name Freq PRN Reason Stop Dose Admin Acetaminophen 650 mg 12/21/18 15:53 12/24/18 10:31 Tylenol 650mg/20.3ml Solution Ud GT 650 mg Q6 PRN Administration Temperature Aspirin 81 mg 12/24/18 10:00 12/29/18 09:53 Aspirin Chewable PO 81 mg DAILY [place] Administration Enoxaparin Sodium 30 mg 12/23/18 10:00 12/29/18 09:52 Lovenox SC 30 mg DAILY [place] Administration Meropenem 500 mg/ Sodium 100 mls @ 100 mls/hr 12/24/18 18:00 12/29/18 17:30 Chloride IVPB 100 mls/hr Q8H [place] Administration Protocol Phenylephrine HCl 30 mg/ 253 mls @ 10.12 mls/hr 12/28/18 19:28 12/29/18 17:19 Dextrose IV 148.22 mcg/min .Q24H PRN 75 mls/hr TITRATE PER MD ORDER Titration Protocol 20 MCG/MIN Sodium Chloride 1,000 mls @ 100 mls/hr 12/29/18 11:45 12/29/18 12:00 Sodium Chloride 0.45% IV 100 mls/hr .Q10H [place] Administration Norepinephrine Bitartrate 4 mg 250 mls @ 15 mls/hr 12/29/18 15:45 / Sodium Chloride IV .[id number] PRN TITRATE PER MD ORDER Protocol 4 MCG/MIN Insulin Aspart 0 unit 12/24/18 12:00 12/29/18 17:33 Novolog SC 4 u Q6H [place] Administration Protocol Methimazole 20 mg 12/27/18 22:00 12/29/18 09:53 Tapazole PO 20 mg Q12 [place] Administration Pantoprazole Sodium 40 mg 12/28/18 10:00 12/29/18 09:52 Protonix Susp PO 40 mg DAILY [place] Administration Rosuvastatin Calcium 10 mg 12/25/18 22:00 12/28/18 21:44 Crestor PO 10 mg HS [place] Administration - Patient Studies Lab Studies: Lab Studies 12/29/18 12/29/18 12/29/18 Range/Units 17:31 11:20 06:06 WBC (4.8-10.8) K/uL RBC (3.80-5.20) Mil/uL Hgb (11.0-16.0) g/dL Hct (34.0-47.0) % MCV (81.0-99.0) fL MCH (27.0-31.0) pg MCHC (33.0-37.0) g/dL RDW (11.5-14.5) % Plt Count (130-400) K/uL MPV (7.2-11.7) fL Neut % (Auto) (50.0-75.0) % Lymph % (Auto) (20.0-40.0) % [place] % (Auto) (0.0-10.0) % Eos % (Auto) (0.0-4.0) % Baso % (Auto) (0.0-2.0) % Neut # (Auto) (1.8-7.0) K/uL Lymph # (Auto) (1.0-4.3) K/uL [place] # (Auto) (0.0-0.8) K/uL Eos # (Auto) (0.0-0.7) K/uL Baso # (Auto) (0.0-0.2) K/uL Sodium (132-148) mmol/L Potassium (3.6-5.2) mmol/L Chloride (98-107) mmol/L Carbon Dioxide (22-30) mmol/L Anion Gap (10-20) BUN (7-17) mg/dL Creatinine (0.7-1.2) mg/dL Est GFR ( Amer) Est GFR (Non-Af Amer) POC Glucose (mg/dL) 318 H 242 H (65-110) mg/dL Random Glucose (65-105) mg/dL Calcium (8.6-10.4) mg/dl Phosphorus (2.5-4.5) mg/dL Magnesium (1.6-2.3) mg/dL Total Bilirubin (0.2-1.3) mg/dL AST (14-36) U/L ALT (9-52) U/L Alkaline Phosphatase (38-126) U/L Total Protein (6.3-8.3) g/dL Albumin (3.5-5.0) g/dL Globulin (2.2-3.9) gm/dL Albumin/Globulin Ratio (1.0-2.1) Thyroxine (T4) (5.5-11.0) ug/dL TSH 3rd Generation (0.46-4.68) mIU/L Cortisol AM Sample 36.4 H (4.46-22.7) ug/dL 12/29/18 12/29/18 12/29/18 Range/Units 06:06 06:06 05:29 WBC 14.8 H (4.8-10.8) K/uL RBC 4.56 (3.80-5.20) Mil/uL Hgb 13.1 (11.0-16.0) g/dL Hct 40.7 (34.0-47.0) % MCV 89.2 (81.0-99.0) fL MCH 28.7 (27.0-31.0) pg MCHC 32.2 L (33.0-37.0) g/dL RDW 15.0 H (11.5-14.5) % Plt Count 203 (130-400) K/uL MPV 10.1 (7.2-11.7) fL Neut % (Auto) 74.3 (50.0-75.0) % Lymph % (Auto) 15.6 L (20.0-40.0) % [place] % (Auto) 9.6 (0.0-10.0) % Eos % (Auto) 0.3 (0.0-4.0) % Baso % (Auto) 0.2 (0.0-2.0) % Neut # (Auto) 11.0 H (1.8-7.0) K/uL Lymph # (Auto) 2.3 (1.0-4.3) K/uL [place] # (Auto) 1.4 H (0.0-0.8) K/uL Eos # (Auto) 0.0 (0.0-0.7) K/uL Baso # (Auto) 0.0 (0.0-0.2) K/uL Sodium 158 H (132-148) mmol/L Potassium 3.0 L (3.6-5.2) mmol/L Chloride 119 H (98-107) mmol/L Carbon Dioxide 32 H (22-30) mmol/L Anion Gap 10 (10-20) BUN 47 H (7-17) mg/dL Creatinine 1.5 H (0.7-1.2) mg/dL Est GFR ( Amer) 45 Est GFR (Non-Af Amer) 37 POC Glucose (mg/dL) 294 H (65-110) mg/dL Random Glucose 326 H D (65-105) mg/dL Calcium 8.2 L (8.6-10.4) mg/dl Phosphorus 3.2 (2.5-4.5) mg/dL Magnesium 1.9 (1.6-2.3) mg/dL Total Bilirubin 0.6 (0.2-1.3) mg/dL AST 41 H (14-36) U/L ALT 40 (9-52) U/L Alkaline Phosphatase 98 (38-126) U/L Total Protein 6.6 (6.3-8.3) g/dL Albumin 3.2 L (3.5-5.0) g/dL Globulin 3.4 (2.2-3.9) gm/dL Albumin/Globulin Ratio 0.9 L (1.0-2.1) Thyroxine (T4) 12.4 H (5.5-11.0) ug/dL TSH 3rd Generation < 0.02 L (0.46-4.68) mIU/L Cortisol AM Sample (4.46-22.7) ug/dL 12/28/18 12/28/18 Range/Units 23:49 18:08 WBC (4.8-10.8) K/uL RBC (3.80-5.20) Mil/uL Hgb (11.0-16.0) g/dL Hct (34.0-47.0) % MCV (81.0-99.0) fL MCH (27.0-31.0) pg MCHC (33.0-37.0) g/dL RDW (11.5-14.5) % Plt Count (130-400) K/uL MPV (7.2-11.7) fL Neut % (Auto) (50.0-75.0) % Lymph % (Auto) (20.0-40.0) % [place] % (Auto) (0.0-10.0) % Eos % (Auto) (0.0-4.0) % Baso % (Auto) (0.0-2.0) % Neut # (Auto) (1.8-7.0) K/uL Lymph # (Auto) (1.0-4.3) K/uL [place] # (Auto) (0.0-0.8) K/uL Eos # (Auto) (0.0-0.7) K/uL Baso # (Auto) (0.0-0.2) K/uL Sodium (132-148) mmol/L Potassium (3.6-5.2) mmol/L Chloride (98-107) mmol/L Carbon Dioxide (22-30) mmol/L Anion Gap (10-20) BUN (7-17) mg/dL Creatinine (0.7-1.2) mg/dL Est GFR ( Amer) Est GFR (Non-Af Amer) POC Glucose (mg/dL) 251 H 246 H (65-110) mg/dL Random Glucose (65-105) mg/dL Calcium (8.6-10.4) mg/dl Phosphorus (2.5-4.5) mg/dL Magnesium (1.6-2.3) mg/dL Total Bilirubin (0.2-1.3) mg/dL AST (14-36) U/L ALT (9-52) U/L Alkaline Phosphatase (38-126) U/L Total Protein (6.3-8.3) g/dL Albumin (3.5-5.0) g/dL Globulin (2.2-3.9) gm/dL Albumin/Globulin Ratio (1.0-2.1) Thyroxine (T4) (5.5-11.0) ug/dL TSH 3rd Generation (0.46-4.68) mIU/L Cortisol AM Sample (4.46-22.7) ug/dL Laboratory Results - last 24 hr 12/28/18 12/28/18 12/29/18 18:08 23:49 05:29 WBC RBC Hgb Hct MCV MCH MCHC RDW Plt Count MPV Neut % (Auto) Lymph % (Auto) [place] % (Auto) Eos % (Auto) Baso % (Auto) Neut # (Auto) Lymph # (Auto) [place] # (Auto) Eos # (Auto) Baso # (Auto) Sodium Potassium Chloride Carbon Dioxide Anion Gap BUN Creatinine Est GFR ( Amer) Est GFR (Non-Af Amer) POC Glucose (mg/dL) 246 H 251 H 294 H Random Glucose Calcium Phosphorus Magnesium Total Bilirubin AST ALT Alkaline Phosphatase Total Protein Albumin Globulin Albumin/Globulin Ratio Thyroxine (T4) TSH 3rd Generation Cortisol AM Sample 12/29/18 12/29/18 12/29/18 06:06 06:06 06:06 WBC 14.8 H RBC 4.56 Hgb 13.1 Hct 40.7 MCV 89.2 MCH 28.7 MCHC 32.2 L RDW 15.0 H Plt Count 203 MPV 10.1 Neut % (Auto) 74.3 Lymph % (Auto) 15.6 L [place] % (Auto) 9.6 Eos % (Auto) 0.3 Baso % (Auto) 0.2 Neut # (Auto) 11.0 H Lymph # (Auto) 2.3 [place] # (Auto) 1.4 H Eos # (Auto) 0.0 Baso # (Auto) 0.0 Sodium 158 H Potassium 3.0 L Chloride 119 H Carbon Dioxide 32 H Anion Gap 10 BUN 47 H Creatinine 1.5 H Est GFR ( Amer) 45 Est GFR (Non-Af Amer) 37 POC Glucose (mg/dL) Random Glucose 326 H D Calcium 8.2 L Phosphorus 3.2 Magnesium 1.9 Total Bilirubin 0.6 AST 41 H ALT 40 Alkaline Phosphatase 98 Total Protein 6.6 Albumin 3.2 L Globulin 3.4 Albumin/Globulin Ratio 0.9 L Thyroxine (T4) 12.4 H TSH 3rd Generation < 0.02 L Cortisol AM Sample 36.4 H 12/29/18 12/29/18 11:20 17:31 WBC RBC Hgb Hct MCV MCH MCHC RDW Plt Count MPV Neut % (Auto) Lymph % (Auto) [place] % (Auto) Eos % (Auto) Baso % (Auto) Neut # (Auto) Lymph # (Auto) [place] # (Auto) Eos # (Auto) Baso # (Auto) Sodium Potassium Chloride Carbon Dioxide Anion Gap BUN Creatinine Est GFR ( Amer) Est GFR (Non-Af Amer) POC Glucose (mg/dL) 242 H 318 H Random Glucose Calcium Phosphorus Magnesium Total Bilirubin AST ALT Alkaline Phosphatase Total Protein Albumin Globulin Albumin/Globulin Ratio Thyroxine (T4) TSH 3rd Generation Cortisol AM Sample Attending/Attestation - Attestation I have personally seen and examined this patient.: Yes I have fully participated in the care of the patient.: Yes I have reviewed all pertinent clinical information: Yes Notes (Text): 12/29/18 18:19 I have seen and examined the patient. Medical records, lab studies, and imaging were reviewed by me and a management plan was formulated on multidisciplinary rounds with resident Dr. Karimi. I agree with their documented assessment and plan. Patient still hemodynamically labile. Labetalol given for HTN and tachycardia, which reduced her heart rate down to the low 100's, but she also became hypotensive. She is too sensitive to alpha 2 blockade Will have to try lopressor once pressure stabilizes. She unfortunately requires levophed to stabilize her blood pressure currently. Will continue to monitor closely. Critical Care Time 35 minutes. Multi-disciplinary rounds were performed with house staff, nursing, speech therapy, respiratory therapy, pharmacy and nutrition with integrated input from the primary team/attending and other consulting services. The documented time is cumulative and includes review of patient data/exams/labs/chart review and examination of the patient on rounds and throughout the day; time is exclusive of any procedures or teaching time.
[2018-12-29] MEDS: Sodium Chloride 0.45% 1,000 ML IV SCH ×2 (12:00→21:45)
--- NOTE | 2018-12-29 12:27 | CP.PCM.PN ---
Subjective - Date & Time of Evaluation Date of Evaluation: 12/29/18 Time of Evaluation: 12:24 - Subjective Subjective: Nephrology Consultation Note: Assessment: critical Non-oliguric Acute Kidney Injury (N17.9) likely due to renal hypoperfusion due to cardiac arrest/hypotension leading to ATN, had exposure to IV contrast in addition: IMPROVING uncontrolled severe HTN, now with shock hypokalemia, hyperkalemia, HAGMA/lactic acidosis hypernatremia hypertension (years) obesity hyperthyroidism thyroid storm, cardiac arrest s/p resuscitation BiV failure with LVEF 15%, sepsis Plan No acute need for renal replacement therapy at this time. Hypertension control with meds as ordered. Maintain hemodynamics stable. Avoid hypotension. Patient not on ACEI/ARB due to recent TANVI and low BP Monitor Input/Output, daily weights and renal function with basic metabolic panel supplement lytes as needed endocrine and cardiology following free water flushes continue hypernatremia with high sugar and low bp; will d/c D5W and resume 0.45% saline @ 100 ml/hr renal sono once she is stable Dose meds/antibiotics for improved GFR. Glycemic control Further work up/management as per primary team Thanks for allowing me to participate in care of your patient. Will follow patient with you. Please call if any Qs. had d/w team Dr Darshan Call Office: [phone] Chief Complaint; unable Reason for consult: Acute Kidney Injury HPI: Pt is a 48 F with hx of hypertension (years) obesity hyperthyroidism presented with complaints of pain abdomen and found to have thyroid storm, cardiac arrest s/p resuscitation, foudn to have BiV failure with LVEF 15%, sepsis and also with TANVI hence renal consulted no known OTC/herbal meds or NSAIDs Noted recent iodinated contrast exposure as CTA. Noted obvious episodes of low BP. ROS: unable to obtain from pt. pt extubated but not much communicative hypotensive 12/28/18 evening, back on phenylephrine drip Physical Examination: General Appearance: Comfortable, in no acute respiratory distress, ill appearing extubated Vitals reviewed and noted as below Head; Atraumatic, normocephalic ENT: no ulcers no thrush. Tongue is midline. Oropharynx: no rash or ulcers. EYES: Pupils are equal, round and sluggish to light accommodation. Eye muscles and extraocular movement intact. Sclera is anicteric. Neck; supple no lymphadenopathy, gross thyromegaly noted Lungs: Normal respiratory rate/effort. Breath sounds b/l clearer Heart: Increased rate. s1s2 normal. No rub or gallop. Extremities: no edema. No varicose veins Neurological: Patient is awake and able to follow commands Skin: Warm and dry. Normal turgor. No rash. Palpitation: Normal elasticity for age Abdomen: Abdomen is soft. Bowel sounds +. There is no abdominal tenderness, no guarding/rigidity no organomegaly Psych: unable MSK: no joint tenderness or swelling. Digits and nails normal, no deformity : kidney or bladder not palpable Labs/imaging reviewed. Past medical history, past surgical history, family history, social history, allergy reviewed and noted as below Family hx: no hx of CKD. Rest non-contributory Objective - Vital Signs/Intake and Output Vital Signs (last 24 hours): Temp Pulse Resp BP Pulse Ox 99.9 F H 110 H 25 H 87/51 L 100 12/29/18 08:00 12/29/18 11:43 12/29/18 11:43 12/29/18 11:43 12/29/18 11:43 Intake and Output: 12/29/18 12/29/18 06:59 18:59 Intake Total 1928 500 Output Total 300 Balance 1628 500 - Medications Medications: Current Medications Acetaminophen (Tylenol 650mg/20.3ml Solution Ud) 650 mg GT Q6 PRN PRN Reason: Temperature Last Admin: 12/24/18 10:31 Dose: 650 mg Aspirin (Aspirin Chewable) 81 mg PO DAILY [facility] Last Admin: 12/29/18 09:53 Dose: 81 mg Enoxaparin Sodium (Lovenox) 30 mg SC DAILY [facility] Last Admin: 12/29/18 09:52 Dose: 30 mg Meropenem 500 mg/ Sodium (Chloride) 100 mls @ 100 mls/hr IVPB Q8H [facility]; Protocol Last Admin: 12/29/18 10:07 Dose: 100 mls/hr Phenylephrine HCl 30 mg/ (Dextrose) 253 mls @ 10.12 mls/hr IV .Q24H [facility]; Protocol PRN Reason: TITRATE PER MD ORDER Last Titration: 12/29/18 01:37 Dose: 0 mcg/min, 0 mls/hr Sodium Chloride (Sodium Chloride 0.45%) 1,000 mls @ 100 mls/hr IV .Q10H [facility] Insulin Aspart (Novolog) 0 unit SC Q6H [facility]; Protocol Last Admin: 12/29/18 00:31 Dose: 3 u Methimazole (Tapazole) 20 mg PO Q12 [facility] Last Admin: 12/29/18 09:53 Dose: 20 mg Pantoprazole Sodium (Protonix Susp) 40 mg PO DAILY [facility] Last Admin: 12/29/18 09:52 Dose: 40 mg Potassium Chloride (Potassium Chloride Oral Soln) 20 meq PO Q2H [facility] Stop: 12/29/18 13:16 Last Admin: 12/29/18 09:52 Dose: 20 meq Rosuvastatin Calcium (Crestor) 10 mg PO HS [facility] Last Admin: 12/28/18 21:44 Dose: 10 mg - Labs Labs: 12/29/18 06:06 12/29/18 06:06 PT 14.1 SECONDS (9.7-12.2) H 12/26/18 06:07 INR 1.3 12/26/18 06:07 APTT 32 SECONDS (21-34) 12/26/18 06:07
--- NOTE | 2018-12-29 15:02 | CP.PCM.PN ---
Subjective - Date & Time of Evaluation Date of Evaluation: 12/29/18 Time of Evaluation: 11:00 - Subjective Subjective: patient evaluated today no fever, no diarrhea, no chills, no SOB remians confused ngtube present Objective - Vital Signs/Intake and Output Vital Signs (last 24 hours): Temp Pulse Resp BP Pulse Ox 99.9 F H 125 H 27 H 90/46 L 100 12/29/18 12:00 12/29/18 14:42 12/29/18 14:42 12/29/18 14:00 12/29/18 14:42 Intake and Output: 12/29/18 12/29/18 06:59 18:59 Intake Total 1928 800 Output Total 300 Balance 1628 800 - Medications Medications: Current Medications Acetaminophen (Tylenol 650mg/20.3ml Solution Ud) 650 mg GT Q6 PRN PRN Reason: Temperature Last Admin: 12/24/18 10:31 Dose: 650 mg Aspirin (Aspirin Chewable) 81 mg PO DAILY [facility] Last Admin: 12/29/18 09:53 Dose: 81 mg Enoxaparin Sodium (Lovenox) 30 mg SC DAILY [facility] Last Admin: 12/29/18 09:52 Dose: 30 mg Meropenem 500 mg/ Sodium (Chloride) 100 mls @ 100 mls/hr IVPB Q8H [facility]; Protocol Last Admin: 12/29/18 10:07 Dose: 100 mls/hr Phenylephrine HCl 30 mg/ (Dextrose) 253 mls @ 10.12 mls/hr IV .Q24H [facility]; Protocol PRN Reason: TITRATE PER MD ORDER Last Titration: 12/29/18 01:37 Dose: 0 mcg/min, 0 mls/hr Sodium Chloride (Sodium Chloride 0.45%) 1,000 mls @ 100 mls/hr IV .Q10H [facility] Last Admin: 12/29/18 12:00 Dose: 100 mls/hr Insulin Aspart (Novolog) 0 unit SC Q6H [facility]; Protocol Last Admin: 12/29/18 12:00 Dose: Not Given Methimazole (Tapazole) 20 mg PO Q12 [facility] Last Admin: 12/29/18 09:53 Dose: 20 mg Pantoprazole Sodium (Protonix Susp) 40 mg PO DAILY [facility] Last Admin: 12/29/18 09:52 Dose: 40 mg Rosuvastatin Calcium (Crestor) 10 mg PO HS [facility] Last Admin: 12/28/18 21:44 Dose: 10 mg - Labs Labs: 12/29/18 06:06 12/29/18 06:06 PT 14.1 SECONDS (9.7-12.2) H 12/26/18 06:07 INR 1.3 12/26/18 06:07 APTT 32 SECONDS (21-34) 12/26/18 06:07 - Constitutional Appears: Well - Head Exam Head Exam: ATRAUMATIC, NORMAL INSPECTION, NORMOCEPHALIC - Eye Exam Eye Exam: EOMI, Normal appearance, PERRL Pupil Exam: NORMAL ACCOMODATION, PERRL - ENT Exam ENT Exam: Mucous Membranes Moist, Normal Exam - Neck Exam Neck Exam: Full ROM, Normal Inspection. absent: Lymphadenopathy - Respiratory Exam Respiratory Exam: Decreased Breath Sounds - Cardiovascular Exam Cardiovascular Exam: REGULAR RHYTHM, +S1, +S2 - GI/Abdominal Exam GI & Abdominal Exam: Soft, Diminished Bowel Sounds - Rectal Exam Rectal Exam: Deferred Assessment and Plan - Assessment and Plan (Free Text) Plan: patient evaluated today chest xray reviewed labs reviewed vitals reviewed medications reviewed aspirin chewable tab crestor lovenox meropenem 500mg novolog phenylephrine hcl protonix susp sodium chloride 0.45% tapazole tylenol 625mg/20.3ml solution ud Spoke to the sister radha Jung on phone father is bedside usually father and mother is bedside Patient wants to go home although patients can get up from the bed and walk patient is extubated patient is still on NG tube feeding Follow-up with the multiple consultations Tapazole decreased to 20 mg p.o. every 12 Follow-up with the Endo Follow-up with the GI Follow-up with the ID Mammogram was discontinued because of all cultures negative starting today Follow-up with the renal kcl suppmentation aggresively mg po4 level cehcked
--- NOTE | 2018-12-29 19:26 | CP.PCM.PN ---
Subjective - Date & Time of Evaluation Date of Evaluation: 12/29/18 Time of Evaluation: 09:00 - Subjective Subjective: extubated afebrile in NAD weak lethargic tremulous Objective - Vital Signs/Intake and Output Vital Signs (last 24 hours): Temp Pulse Resp BP Pulse Ox 98.3 F 110 H 25 H 129/69 100 12/29/18 16:00 12/29/18 19:08 12/29/18 19:08 12/29/18 19:00 12/29/18 19:08 Intake and Output: 12/29/18 12/30/18 18:59 06:59 Intake Total 1925 135 Output Total 600 Balance 1325 135 - Medications Medications: Current Medications Acetaminophen (Tylenol 650mg/20.3ml Solution Ud) 650 mg GT Q6 PRN PRN Reason: Temperature Last Admin: 12/24/18 10:31 Dose: 650 mg Aspirin (Aspirin Chewable) 81 mg PO DAILY [facility] Last Admin: 12/29/18 09:53 Dose: 81 mg Enoxaparin Sodium (Lovenox) 30 mg SC DAILY [facility] Last Admin: 12/29/18 09:52 Dose: 30 mg Meropenem 500 mg/ Sodium (Chloride) 100 mls @ 100 mls/hr IVPB Q8H [facility]; Protocol Last Admin: 12/29/18 17:30 Dose: 100 mls/hr Phenylephrine HCl 30 mg/ (Dextrose) 253 mls @ 10.12 mls/hr IV .Q24H [facility]; Protocol PRN Reason: TITRATE PER MD ORDER Last Titration: 12/29/18 19:16 Dose: 138.33 mcg/min, 70 mls/hr Sodium Chloride (Sodium Chloride 0.45%) 1,000 mls @ 100 mls/hr IV .Q10H [facility] Last Admin: 12/29/18 12:00 Dose: 100 mls/hr Norepinephrine Bitartrate 4 mg (/ Sodium Chloride) 250 mls @ 15 mls/hr IV .[id number] PRN; Protocol PRN Reason: TITRATE PER MD ORDER Potassium Chloride (Potassium Chloride 20 Meq/100 Ml) 20 meq in 100 mls @ 50 mls/hr IVPB ONCE ONE Stop: 12/29/18 20:59 Last Admin: 12/29/18 19:18 Dose: 50 mls/hr Insulin Aspart (Novolog) 0 unit SC Q6H [facility]; Protocol Last Admin: 12/29/18 17:33 Dose: 4 u Methimazole (Tapazole) 20 mg PO Q12 [facility] Last Admin: 12/29/18 09:53 Dose: 20 mg Pantoprazole Sodium (Protonix Susp) 40 mg PO DAILY [facility] Last Admin: 12/29/18 09:52 Dose: 40 mg Rosuvastatin Calcium (Crestor) 10 mg PO HS [facility] Last Admin: 12/28/18 21:44 Dose: 10 mg - Labs Labs: 12/29/18 06:06 12/29/18 06:06 PT 14.1 SECONDS (9.7-12.2) H 12/26/18 06:07 INR 1.3 12/26/18 06:07 APTT 32 SECONDS (21-34) 12/26/18 06:07 - Constitutional Appears: No Acute Distress, Chronically Ill - Head Exam Head Exam: NORMOCEPHALIC - Eye Exam Eye Exam: absent: Scleral icterus - ENT Exam ENT Exam: Mucous Membranes Dry - Neck Exam Neck Exam: absent: Lymphadenopathy - Respiratory Exam Respiratory Exam: Decreased Breath Sounds - Cardiovascular Exam Cardiovascular Exam: REGULAR RHYTHM - GI/Abdominal Exam GI & Abdominal Exam: Distended, Soft - Rectal Exam Rectal Exam: Deferred - Exam Exam: NORMAL INSPECTION - Extremities Exam Extremities Exam: absent: Pedal Edema - Back Exam Back Exam: absent: CVA tenderness (L), CVA tenderness (R) - Neurological Exam Neurological Exam: Alert, Altered, CN II-XII Intact - Psychiatric Exam Psychiatric exam: Depressed - Skin Skin Exam: Dry Assessment and Plan (1) Fever Status: Acute (2) TANVI (acute kidney injury) Status: Acute (3) Cardiac arrest Status: Acute (4) Cardiomyopathy Status: Acute (5) Thyrotoxicosis Status: Acute - Assessment and Plan (Free Text) Assessment: afebrile cultures neg cxr - no infiltrates will d/c IV antibiotics
--- NOTE | 2018-12-29 19:29 | CP.PCM.PCO ---
Physician Communication Note - Physician Communication Note Physician Communication Note: all cultures neg day 5 Merrem IV rx d/c'd
--- NOTE | 2018-12-29 20:05 | PN ---
DATE: 12/29/2018 ENDOCRINOLOGY FOLLOWUP NOTE LOCATION: ICU, room 18. SUBJECTIVE: This is a 48-year-old female with known history of Graves disease and recent marked hyperthyroidism with supervening cardiopulmonary arrest, endotracheal intubation and has since then improved clinically and hemodynamically as noted thereof. She is currently tolerating the nasal cannula oxygen delivery as given. She has improved also metabolically in terms of her thyroid condition as noted. Her latest thyroxine or T4 level is 12.4 mcg/dL with a TSH of less than 0.02. LABORATORY DATA: Her chemistry showed a BUN of 47, sodium 158, potassium 3, chloride 119, CO2 of 32, glucose 326 and creatinine 1.5. The recent steroids given may have caused this transient hyperglycemic accelerations or the so called stress hyperglycemia as noted thereof. ASSESSMENT AND PLAN: So, at this time, we will continue the modified and lower dosing of the methimazole given as 20 mg every 12 hours as given. We will also discuss with the patient the therapeutic options for long-term thyroid management in terms of either continuing her medical therapy and/or opting for a more definitive management such as radioactive iodine ablation, which can be scheduled as an outpatient. We will obtain serial chemistries and supplement accordingly as needed. We will follow. Linda Weaver MD
[2018-12-30 06:10] LABS: BASO % 0.2 % (0.0-2.0); EOS # 0.4 K/uL (0.0-0.7); EOS % 2.4 % (0.0-4.0); LYMPH % 19.8 % (20.0-40.0); MEAN CELL VOLUME 88.9 fL (81.0-99.0); MEAN CORPUSCULAR HGB CONC 31.5 g/dL (33.0-37.0); MEAN PLATELET VOLUME 10.6 fL (7.2-11.7); MONO # 1.5 K/uL (0.0-0.8); MONO % 9.8 % (0.0-10.0); NEUT # 10.2 K/uL (1.8-7.0); NEUT % 67.8 % (50.0-75.0); RBC 4.03 Mil/uL (3.80-5.20); RED CELL DISTRIBUTION WIDTH 15.1 % (11.5-14.5)
[2018-12-30 06:22] LABS: HEMOGLOBIN 11.3 g/dL (11.0-16.0)
[2018-12-30 06:24] LABS: ALB/GLOB RATIO 0.9 (1.0-2.1); ALBUMIN 2.7 g/dL (3.5-5.0); ALT/SGPT 40 U/L (9-52); AST/SGOT 60 U/L (14-36); BLOOD UREA NITROGEN 33 mg/dL (7-17); CALCIUM 7.2 mg/dl (8.6-10.4); GFR NON-AFRICAN AMERICAN 53
--- NOTE | 2018-12-30 06:39 | CP.PCM.PN ---
Subjective - Date & Time of Evaluation Date of Evaluation: 12/30/18 Time of Evaluation: 06:41 - Subjective Subjective: Pgy3 Internal Medicine resident Endocrinology Progress note for Dr. Weaver Patient seen and examined at bedside. Failed speech/swallow the day before and has NGT in place. Blood pressure is labile and being managed closely by MICU team. Unable to obtain further HPI or ROS due to current clinical status. Objective - Vital Signs/Intake and Output Vital Signs (last 24 hours): Temp Pulse Resp BP Pulse Ox 98.7 F 123 H 23 141/78 100 12/30/18 04:00 12/30/18 06:00 12/30/18 06:00 12/30/18 05:38 12/30/18 06:00 Intake and Output: 12/29/18 12/30/18 18:59 06:59 Intake Total 1925 2110.2 Output Total 600 900 Balance 1325 1210.2 - Medications Medications: Current Medications Acetaminophen (Tylenol 650mg/20.3ml Solution Ud) 650 mg GT Q6 PRN PRN Reason: Temperature Last Admin: 12/24/18 10:31 Dose: 650 mg Aspirin (Aspirin Chewable) 81 mg PO DAILY [facility] Last Admin: 12/29/18 09:53 Dose: 81 mg Enoxaparin Sodium (Lovenox) 30 mg SC DAILY [facility] Last Admin: 12/29/18 09:52 Dose: 30 mg Glimepiride (Amaryl) 2 mg PO ACBD [facility] Phenylephrine HCl 30 mg/ (Dextrose) 253 mls @ 10.12 mls/hr IV .Q24H [facility]N; Protocol PRN Reason: TITRATE PER MD ORDER Last Titration: 12/30/18 01:00 Dose: 0 mcg/min, 0 mls/hr Sodium Chloride (Sodium Chloride 0.45%) 1,000 mls @ 100 mls/hr IV .Q10H [facility] Last Admin: 12/29/18 21:45 Dose: Not Given Norepinephrine Bitartrate 4 mg (/ Sodium Chloride) 250 mls @ 15 mls/hr IV .[id number] PRN; Protocol PRN Reason: TITRATE PER MD ORDER Insulin Human Regular (Novolin R) 0 unit SC ACHS [facility]; Protocol Methimazole (Tapazole) 20 mg PO Q12 [facility] Last Admin: 12/29/18 21:09 Dose: 20 mg Pantoprazole Sodium (Protonix Susp) 40 mg PO DAILY [facility] Last Admin: 12/29/18 09:52 Dose: 40 mg Rosuvastatin Calcium (Crestor) 10 mg PO HS [facility] Last Admin: 12/29/18 21:09 Dose: 10 mg - Labs Labs: 12/30/18 06:02 12/30/18 05:45 PT 14.1 SECONDS (9.7-12.2) H 12/26/18 06:07 INR 1.3 12/26/18 06:07 APTT 32 SECONDS (21-34) 12/26/18 06:07 - Additional Findings Additional findings: - Constitutional Appears: Non-toxic, No Acute Distress - Head Exam Head Exam: ATRAUMATIC, NORMOCEPHALIC - Eye Exam Eye Exam: PERRL. absent: Nystagmus Additional comments: tracking and blinking - ENT Exam ENT Exam: Mucous Membranes Dry - Respiratory Exam Respiratory Exam: Clear to Ausculation Bilateral, NORMAL BREATHING PATTERN Additional comments: NC in place - Cardiovascular Exam Cardiovascular Exam: Tachycardia, +S1, +S2 - GI/Abdominal Exam GI & Abdominal Exam: Soft, Normal Bowel Sounds. absent: Guarding, Rigid - Extremities Exam Extremities Exam: Normal Capillary Refill Additional comments: b/l pressure off loading boots in place - Neurological Exam Neurological Exam: Awake, Alert Additional comments: minimally cooperative with exam; moves all 4 extremities voluntarily - Psychiatric Exam Psychiatric exam: Flat Affect - Skin Skin Exam: Dry, Intact, Normal Color, Warm Assessment and Plan - Assessment and Plan (Free Text) Assessment: 48yo female PMHx HTN, Hyperthyroidism, TIA, anxiety, asthma and Grave's dx presented to the ER overnight with complaints of severe abdominal pain, nausea, and vomiting. Patient had cardiac arrest x 3 and ROSC was achieved. Admitted to MICU for further management. Endocrinology consulted for possible thyroid storm. Plan: Overnight events, imaging, and blood work noted. On 12/29 patient's T4 12.4 TSH < 0.02, and AM Cortisol 36.4. Continue Tapazole to 20q12. Will order labs for AM and consider titrating tapazole up to q8 depending on results. Will continue to monitor blood work. Continue to correct electrolyte abnl. Continue management as per primary and MICU team. Patient will need close endocrine follow up as outpatient; patient is a candidate for radioactive ablation therapy of thyroid but this will be need to be done outpatient and Tapazole will need to be held for 7-10 days prior to diagnostic radiouptake scan and prior to radioablation procedure. Discussed with Dr. Owen Crowell PGY3
[2018-12-30] MEDS: Sodium Chloride 0.45% 1,000 ML IV SCH ×4 (07:35→23:55)
[2018-12-30] MEDS: Potassium Chloride 20 mEq/15 ml LIQ UD NG SCH ×3 (07:36→19:30)
[2018-12-30] MEDS: Magnesium Sulfate 1 gm in D5W 1 GM/100 ML BAG IVPB SCH ×2 (07:36→08:17)
[2018-12-30] MEDS: (Novolin R) Insulin Human Regular 100 units/ml vial SC SCH ×4 (07:40→22:00)
--- NOTE | 2018-12-30 07:56 | CP.PCM.PN ---
Subjective - Date & Time of Evaluation Date of Evaluation: 12/30/18 Time of Evaluation: 07:53 - Subjective Subjective: Patient was extubated, now awake. She is currently receiving NG tube feedings. She is not responding to questions, though her sister states that she was more alert yesterday. Objective - Vital Signs/Intake and Output Vital Signs (last 24 hours): Temp Pulse Resp BP Pulse Ox 98.7 F 123 H 23 141/78 100 12/30/18 04:00 12/30/18 06:00 12/30/18 06:00 12/30/18 05:38 12/30/18 06:00 Intake and Output: 12/30/18 12/30/18 06:59 18:59 Intake Total 2110.2 Output Total 900 Balance 1210.2 - Medications Medications: Current Medications Acetaminophen (Tylenol 650mg/20.3ml Solution Ud) 650 mg GT Q6 PRN PRN Reason: Temperature Last Admin: 12/24/18 10:31 Dose: 650 mg Aspirin (Aspirin Chewable) 81 mg PO DAILY [facility] Last Admin: 12/29/18 09:53 Dose: 81 mg Enoxaparin Sodium (Lovenox) 30 mg SC DAILY [facility] Last Admin: 12/29/18 09:52 Dose: 30 mg Glimepiride (Amaryl) 2 mg PO ACBD [facility] Last Admin: 12/30/18 07:36 Dose: 2 mg Phenylephrine HCl 30 mg/ (Dextrose) 253 mls @ 10.12 mls/hr IV .Q24H [facility]; Protocol PRN Reason: TITRATE PER MD ORDER Last Titration: 12/30/18 01:00 Dose: 0 mcg/min, 0 mls/hr Sodium Chloride (Sodium Chloride 0.45%) 1,000 mls @ 100 mls/hr IV .Q10H [facility] Last Admin: 12/29/18 21:45 Dose: Not Given Norepinephrine Bitartrate 4 mg (/ Sodium Chloride) 250 mls @ 15 mls/hr IV .[id number] PRN; Protocol PRN Reason: TITRATE PER MD ORDER Potassium Chloride (Potassium Chloride 10 Meq/100 Ml) 10 meq in 100 mls @ 100 mls/hr IVPB Q1H [facility] Stop: 12/30/18 12:59 Insulin Human Regular (Novolin R) 0 unit SC ACHS [facility]; Protocol Methimazole (Tapazole) 20 mg PO Q12 [facility] Last Admin: 12/29/18 21:09 Dose: 20 mg Pantoprazole Sodium (Protonix Susp) 40 mg PO DAILY [facility] Last Admin: 12/29/18 09:52 Dose: 40 mg Potassium Chloride (Potassium Chloride Oral Soln) 40 meq NG Q6H [facility] Stop: 12/31/18 01:31 Last Admin: 12/30/18 07:36 Dose: 40 meq Rosuvastatin Calcium (Crestor) 10 mg PO HS [facility] Last Admin: 12/29/18 21:09 Dose: 10 mg - Labs Labs: 12/30/18 06:02 12/30/18 05:45 PT 14.1 SECONDS (9.7-12.2) H 12/26/18 06:07 INR 1.3 12/26/18 06:07 APTT 32 SECONDS (21-34) 12/26/18 06:07 - Constitutional Appears: Confused - Head Exam Head Exam: ATRAUMATIC, NORMOCEPHALIC - Eye Exam Eye Exam: EOMI, PERRL - Neck Exam Neck Exam: absent: Lymphadenopathy, Thyromegaly - Respiratory Exam Respiratory Exam: NORMAL BREATHING PATTERN. absent: Rales, Rhonchi, Wheezes - Cardiovascular Exam Cardiovascular Exam: REGULAR RHYTHM, +S1, +S2. absent: Gallop, Rubs, Murmur - GI/Abdominal Exam GI & Abdominal Exam: Soft, Normal Bowel Sounds. absent: Tenderness, Mass, Organomegaly - Rectal Exam Rectal Exam: Deferred - Extremities Exam Extremities Exam: absent: Calf Tenderness, Pedal Edema Assessment and Plan (1) Dysphagia Assessment & Plan: Patient's mental status is improving. Check swallowing evaluation. If patient will need long-term nutritional support, we can place the PEG tube next week. Status: Acute
[2018-12-30] MEDS: Enoxaparin 30 mg Syringe SC SCH (09:18)
[2018-12-30] MEDS: Pantoprazole 40 mg Susp UD PO SCH (09:18)
[2018-12-30] MEDS ORDERED: Metoprolol 1 mg/ml Inj IVP ONE (10:40)
--- NOTE | 2018-12-30 10:56 | CP.PCM.PN ---
Subjective - Date & Time of Evaluation Date of Evaluation: 12/30/18 Time of Evaluation: 10:55 - Subjective Subjective: Nephrology Consultation Note: Assessment: critical Non-oliguric Acute Kidney Injury (N17.9) likely due to renal hypoperfusion due to cardiac arrest/hypotension leading to ATN, had exposure to IV contrast in addition: IMPROVING uncontrolled severe HTN, now with shock hypokalemia, hyperkalemia, HAGMA/lactic acidosis hypernatremia hypertension (years) obesity hyperthyroidism thyroid storm, cardiac arrest s/p resuscitation BiV failure with LVEF 15%, sepsis Plan No acute need for renal replacement therapy at this time. Hypertension control with meds as ordered. Maintain hemodynamics stable. Avoid hypotension. Patient not on ACEI/ARB due to recent TANVI and low BP. continue with rate control meds as beta blockers Monitor Input/Output, daily weights and renal function with basic metabolic panel supplement lytes as needed endocrine and cardiology following free water flushes continue hypernatremia with high sugar and low bp; c/w 0.45% saline @ 75 ml/hr renal sono later on once she is stable Dose meds/antibiotics for improved GFR. Glycemic control Further work up/management as per primary team Thanks for allowing me to participate in care of your patient. Will follow patient with you. Please call if any Qs. had d/w team Dr Darshan Call Office: [phone] Chief Complaint; unable Reason for consult: Acute Kidney Injury HPI: Pt is a 48 F with hx of hypertension (years) obesity hyperthyroidism presented with complaints of pain abdomen and found to have thyroid storm, cardiac arrest s/p resuscitation, foudn to have BiV failure with LVEF 15%, sepsis and also with TANVI hence renal consulted no known OTC/herbal meds or NSAIDs Noted recent iodinated contrast exposure as CTA. Noted obvious episodes of low BP. ROS: unable to obtain from pt. pt extubated but not much communicative hypotensive 12/28/18 evening, back on phenylephrine drip. now off pressors Physical Examination: General Appearance: Comfortable, in no acute respiratory distress, ill appearing extubated Vitals reviewed and noted as below Head; Atraumatic, normocephalic ENT: no ulcers no thrush. Tongue is midline. Oropharynx: no rash or ulcers. EYES: Pupils are equal, round and sluggish to light accommodation. Eye muscles and extraocular movement intact. Sclera is anicteric. Neck; supple no lymphadenopathy, gross thyromegaly noted Lungs: Normal respiratory rate/effort. Breath sounds b/l clearer Heart: Increased rate. s1s2 normal. No rub or gallop. Extremities: no edema. No varicose veins Neurological: Patient is awake and able to follow commands Skin: Warm and dry. Normal turgor. No rash. Palpitation: Normal elasticity for age Abdomen: Abdomen is soft. Bowel sounds +. There is no abdominal tenderness, no guarding/rigidity no organomegaly Psych: unable MSK: no joint tenderness or swelling. Digits and nails normal, no deformity : kidney or bladder not palpable Labs/imaging reviewed. Past medical history, past surgical history, family history, social history, allergy reviewed and noted as below Family hx: no hx of CKD. Rest non-contributory Objective - Vital Signs/Intake and Output Vital Signs (last 24 hours): Temp Pulse Resp BP Pulse Ox 98 F 131 H 14 154/97 H 99 12/30/18 08:00 12/30/18 09:40 12/30/18 09:40 12/30/18 09:40 12/30/18 09:40 Intake and Output: 12/30/18 12/30/18 06:59 18:59 Intake Total 2110.2 910 Output Total 900 Balance 1210.2 910 - Medications Medications: Current Medications Acetaminophen (Tylenol 650mg/20.3ml Solution Ud) 650 mg GT Q6 PRN PRN Reason: Temperature Last Admin: 12/24/18 10:31 Dose: 650 mg Enoxaparin Sodium (Lovenox) 30 mg SC DAILY [facility] Last Admin: 12/30/18 09:18 Dose: 30 mg Glimepiride (Amaryl) 2 mg PO ACBD [facility] Last Admin: 12/30/18 07:36 Dose: 2 mg Phenylephrine HCl 30 mg/ (Dextrose) 253 mls @ 10.12 mls/hr IV .Q24H PRN; Protocol PRN Reason: TITRATE PER MD ORDER Last Titration: 12/30/18 01:00 Dose: 0 mcg/min, 0 mls/hr Norepinephrine Bitartrate 4 mg (/ Sodium Chloride) 250 mls @ 15 mls/hr IV .[id number] PRN; Protocol PRN Reason: TITRATE PER MD ORDER Sodium Chloride (Sodium Chloride 0.45%) 1,000 mls @ 75 mls/hr IV .[id number] [facility] Insulin Human Regular (Novolin R) 0 unit SC ACHS [facility]; Protocol Last Admin: 12/30/18 07:40 Dose: 3 u Methimazole (Tapazole) 20 mg PO Q12 [facility] Last Admin: 12/30/18 09:18 Dose: 20 mg Pantoprazole Sodium (Protonix Susp) 40 mg PO DAILY [facility] Last Admin: 12/30/18 09:18 Dose: 40 mg Potassium Chloride (Potassium Chloride Oral Soln) 40 meq NG Q6H [place] Stop: 12/31/18 01:31 Last Admin: 12/30/18 07:36 Dose: 40 meq Rosuvastatin Calcium (Crestor) 10 mg PO HS [facility] Last Admin: 12/29/18 21:09 Dose: 10 mg Spironolactone (Aldactone) 50 mg PO DAILY [facility] - Labs Labs: 12/30/18 06:02 12/30/18 05:45 PT 14.1 SECONDS (9.7-12.2) H 12/26/18 06:07 INR 1.3 12/26/18 06:07 APTT 32 SECONDS (21-34) 12/26/18 06:07
--- NOTE | 2018-12-30 11:56 | CP.CCUPN ---
<Moncho Karimi - Last Filed: 12/30/18 19:22> CCU Subjective - Physician Review Subjective (Free Text): ICU Progress Note for Dr. Shin Pt seen and examined at bedside this am. S/p extubation, saturating well. Unable to obtain further HPI or ROS due to current clinical status. Hypotension improving, pressor therapy being tapered down. CCU Objective - Vital Signs / Intake & Output Vital Signs (Last 4 hours): Vital Signs Temp Pulse Resp BP Pulse Ox 12/30/18 11:02 127 H 24 175/100 H 100 12/30/18 09:40 131 H 14 154/97 H 99 12/30/18 08:39 123 H 15 139/78 100 12/30/18 08:00 98 F Intake and Output (Last 8hrs): Intake & Output 12/29/18 12/30/18 12/30/18 22:59 06:59 14:59 Intake Total 1652.6 1267.6 1150 Output Total 600 900 Balance 1052.6 367.6 1150 Weight 142 lb 8 oz Intake: IV 25 25 Intake, IV Amount 1407.6 922.6 600 Left Antecubital 407.6 22.6 PIERRE midline 100 100 Right Upper arm 100 pierre midline 800 800 600 Tube Feeding 120 320 200 Other 100 350 Output: Urine 600 900 Urine, Voided 600 900 Other: # Bowel Movements 1 1 1 - Physical Exam Head: Positive for: Atraumatic, Normocephalic Pupils: Positive for: PERRL Extroacular Muscles: Positive for: EOMI. Negative for: Gaze Palsy Conjunctiva: Positive for: Normal Mouth: Positive for: Moist Mucous Membranes Neck: Positive for: Normal Range of Motion, Trachea Midline. Negative for: Meningeal Signs, MIDLINE TENDERNESS, Paraspinal Tenderness, JVD, Lymphadenopathy, Bruit, Other Respiratory/Chest: Positive for: Clear to Auscultation, Good Air Exchange, Other (s/p extubation). Negative for: Respiratory Distress, Accessory Muscle Use, Wheezes, Rales, Rhonchi Cardiovascular: Positive for: Normal S1, S2, Tachycardic. Negative for: Murmurs, Rub, Gallop Abdomen: Positive for: Normal Bowel Sounds. Negative for: Tenderness, Distention, Mass/Organomegaly Upper Extremity: Positive for: Normal Inspection, NORMAL PULSES, Neurovascularly Intact, Capillary Refill < 2s. Negative for: Cyanosis, Edema Lower Extremity: Positive for: Normal Inspection, NORMAL PULSES, Neurovascularly Intact, Capillary Refill < 2 s. Negative for: Edema Neurological: Positive for: Other (s/p extubation this am, able to track eyes in response to voice, verbal on exam) Skin: Positive for: Warm, Dry, Normal Color Psychiatric: Positive for: Alert - Medications Active Medications: Active Medications Generic Name Dose Route Start Last Admin Trade Name Freq PRN Reason Stop Dose Admin Acetaminophen 650 mg 12/21/18 15:53 12/24/18 10:31 Tylenol 650mg/20.3ml Solution Ud GT 650 mg Q6 PRN Administration Temperature Enoxaparin Sodium 30 mg 12/23/18 10:00 12/30/18 09:18 Lovenox SC 30 mg DAILY [place] Administration Glimepiride 2 mg 12/30/18 07:30 12/30/18 07:36 Amaryl PO 2 mg ACBD [place] Administration Phenylephrine HCl 30 mg/ 253 mls @ 10.12 mls/hr 12/28/18 19:28 12/30/18 01:00 Dextrose IV 0 mcg/min .Q24H PRN 0 mls/hr TITRATE PER MD ORDER Titration Protocol 20 MCG/MIN Norepinephrine Bitartrate 4 mg 250 mls @ 15 mls/hr 12/29/18 15:45 / Sodium Chloride IV .[id number] PRN TITRATE PER MD ORDER Protocol 4 MCG/MIN Sodium Chloride 1,000 mls @ 75 mls/hr 12/30/18 10:11 12/30/18 11:03 Sodium Chloride 0.45% IV Not Given .[id number] [place] Insulin Human Regular 0 unit 12/30/18 07:30 12/30/18 11:15 Novolin R SC Not Given ACHS [place] Protocol Methimazole 20 mg 12/27/18 22:00 12/30/18 09:18 Tapazole PO 20 mg Q12 [place] Administration Pantoprazole Sodium 40 mg 12/28/18 10:00 12/30/18 09:18 Protonix Susp PO 40 mg DAILY [place] Administration Potassium Chloride 40 meq 12/30/18 07:30 12/30/18 07:36 Potassium Chloride Oral Soln NG 12/31/18 01:31 40 meq Q6H [place] Administration Rosuvastatin Calcium 10 mg 12/25/18 22:00 12/29/18 21:09 Crestor PO 10 mg HS [place] Administration Spironolactone 50 mg 12/30/18 10:45 12/30/18 11:01 Aldactone PO 50 mg DAILY [place] Administration - Patient Studies Lab Studies: Lab Studies 12/30/18 12/30/18 12/30/18 Range/Units 11:08 07:32 06:02 WBC 15.0 H (4.8-10.8) K/uL RBC 4.03 (3.80-5.20) Mil/uL Hgb 11.3 (11.0-16.0) g/dL Hct 35.8 (34.0-47.0) % MCV 88.9 (81.0-99.0) fL MCH 28.0 (27.0-31.0) pg MCHC 31.5 L (33.0-37.0) g/dL RDW 15.1 H (11.5-14.5) % Plt Count 163 (130-400) K/uL MPV 10.6 (7.2-11.7) fL Neut % (Auto) 67.8 (50.0-75.0) % Lymph % (Auto) 19.8 L (20.0-40.0) % Anson % (Auto) 9.8 (0.0-10.0) % Eos % (Auto) 2.4 (0.0-4.0) % Baso % (Auto) 0.2 (0.0-2.0) % Neut # (Auto) 10.2 H (1.8-7.0) K/uL Lymph # (Auto) 3.0 (1.0-4.3) K/uL Anson # (Auto) 1.5 H (0.0-0.8) K/uL Eos # (Auto) 0.4 (0.0-0.7) K/uL Baso # (Auto) 0.0 (0.0-0.2) K/uL Sodium (132-148) mmol/L Potassium (3.6-5.2) mmol/L Chloride (98-107) mmol/L Carbon Dioxide (22-30) mmol/L Anion Gap (10-20) BUN (7-17) mg/dL Creatinine (0.7-1.2) mg/dL Est GFR ( Amer) Est GFR (Non-Af Amer) POC Glucose (mg/dL) 188 H 280 H (65-110) mg/dL Random Glucose (65-105) mg/dL Calcium (8.6-10.4) mg/dl Phosphorus (2.5-4.5) mg/dL Magnesium (1.6-2.3) mg/dL Total Bilirubin (0.2-1.3) mg/dL AST (14-36) U/L ALT (9-52) U/L Alkaline Phosphatase (38-126) U/L Total Protein (6.3-8.3) g/dL Albumin (3.5-5.0) g/dL Globulin (2.2-3.9) gm/dL Albumin/Globulin Ratio (1.0-2.1) 12/30/18 12/30/18 12/30/18 Range/Units 05:45 04:57 00:11 WBC (4.8-10.8) K/uL RBC (3.80-5.20) Mil/uL Hgb (11.0-16.0) g/dL Hct (34.0-47.0) % MCV (81.0-99.0) fL MCH (27.0-31.0) pg MCHC (33.0-37.0) g/dL RDW (11.5-14.5) % Plt Count (130-400) K/uL MPV (7.2-11.7) fL Neut % (Auto) (50.0-75.0) % Lymph % (Auto) (20.0-40.0) % Anson % (Auto) (0.0-10.0) % Eos % (Auto) (0.0-4.0) % Baso % (Auto) (0.0-2.0) % Neut # (Auto) (1.8-7.0) K/uL Lymph # (Auto) (1.0-4.3) K/uL Anson # (Auto) (0.0-0.8) K/uL Eos # (Auto) (0.0-0.7) K/uL Baso # (Auto) (0.0-0.2) K/uL Sodium 152 H (132-148) mmol/L Potassium 2.7 L (3.6-5.2) mmol/L Chloride 115 H (98-107) mmol/L Carbon Dioxide 35 H (22-30) mmol/L Anion Gap 5 L (10-20) BUN 33 H (7-17) mg/dL Creatinine 1.1 (0.7-1.2) mg/dL Est GFR ( Amer) > 60 Est GFR (Non-Af Amer) 53 POC Glucose (mg/dL) 293 H 231 H (65-110) mg/dL Random Glucose 240 H D (65-105) mg/dL Calcium 7.2 L (8.6-10.4) mg/dl Phosphorus 2.7 (2.5-4.5) mg/dL Magnesium 1.3 L (1.6-2.3) mg/dL Total Bilirubin 0.5 (0.2-1.3) mg/dL AST 60 H D (14-36) U/L ALT 40 (9-52) U/L Alkaline Phosphatase 103 (38-126) U/L Total Protein 5.8 L (6.3-8.3) g/dL Albumin 2.7 L (3.5-5.0) g/dL Globulin 3.1 (2.2-3.9) gm/dL Albumin/Globulin Ratio 0.9 L (1.0-2.1) 12/29/18 12/29/18 12/28/18 Range/Units 17:31 11:20 10:24 WBC (4.8-10.8) K/uL RBC (3.80-5.20) Mil/uL Hgb (11.0-16.0) g/dL Hct (34.0-47.0) % MCV (81.0-99.0) fL MCH (27.0-31.0) pg MCHC (33.0-37.0) g/dL RDW (11.5-14.5) % Plt Count (130-400) K/uL MPV (7.2-11.7) fL Neut % (Auto) (50.0-75.0) % Lymph % (Auto) (20.0-40.0) % Anson % (Auto) (0.0-10.0) % Eos % (Auto) (0.0-4.0) % Baso % (Auto) (0.0-2.0) % Neut # (Auto) (1.8-7.0) K/uL Lymph # (Auto) (1.0-4.3) K/uL Anson # (Auto) (0.0-0.8) K/uL Eos # (Auto) (0.0-0.7) K/uL Baso # (Auto) (0.0-0.2) K/uL Sodium (132-148) mmol/L Potassium (3.6-5.2) mmol/L Chloride (98-107) mmol/L Carbon Dioxide (22-30) mmol/L Anion Gap (10-20) BUN (7-17) mg/dL Creatinine (0.7-1.2) mg/dL Est GFR ( Amer) Est GFR (Non-Af Amer) POC Glucose (mg/dL) 318 H 242 H 201 H (65-110) mg/dL Random Glucose (65-105) mg/dL Calcium (8.6-10.4) mg/dl Phosphorus (2.5-4.5) mg/dL Magnesium (1.6-2.3) mg/dL Total Bilirubin (0.2-1.3) mg/dL AST (14-36) U/L ALT (9-52) U/L Alkaline Phosphatase (38-126) U/L Total Protein (6.3-8.3) g/dL Albumin (3.5-5.0) g/dL Globulin (2.2-3.9) gm/dL Albumin/Globulin Ratio (1.0-2.1) 12/27/18 12/27/18 12/27/18 Range/Units 22:27 17:19 10:12 WBC (4.8-10.8) K/uL RBC (3.80-5.20) Mil/uL Hgb (11.0-16.0) g/dL Hct (34.0-47.0) % MCV (81.0-99.0) fL MCH (27.0-31.0) pg MCHC (33.0-37.0) g/dL RDW (11.5-14.5) % Plt Count (130-400) K/uL MPV (7.2-11.7) fL Neut % (Auto) (50.0-75.0) % Lymph % (Auto) (20.0-40.0) % Anson % (Auto) (0.0-10.0) % Eos % (Auto) (0.0-4.0) % Baso % (Auto) (0.0-2.0) % Neut # (Auto) (1.8-7.0) K/uL Lymph # (Auto) (1.0-4.3) K/uL Anson # (Auto) (0.0-0.8) K/uL Eos # (Auto) (0.0-0.7) K/uL Baso # (Auto) (0.0-0.2) K/uL Sodium (132-148) mmol/L Potassium (3.6-5.2) mmol/L Chloride (98-107) mmol/L Carbon Dioxide (22-30) mmol/L Anion Gap (10-20) BUN (7-17) mg/dL Creatinine (0.7-1.2) mg/dL Est GFR ( Amer) Est GFR (Non-Af Amer) POC Glucose (mg/dL) 134 H 111 H 153 H (65-110) mg/dL Random Glucose (65-105) mg/dL Calcium (8.6-10.4) mg/dl Phosphorus (2.5-4.5) mg/dL Magnesium (1.6-2.3) mg/dL Total Bilirubin (0.2-1.3) mg/dL AST (14-36) U/L ALT (9-52) U/L Alkaline Phosphatase (38-126) U/L Total Protein (6.3-8.3) g/dL Albumin (3.5-5.0) g/dL Globulin (2.2-3.9) gm/dL Albumin/Globulin Ratio (1.0-2.1) 12/26/18 12/26/18 12/26/18 Range/Units 17:05 10:26 03:25 WBC (4.8-10.8) K/uL RBC (3.80-5.20) Mil/uL Hgb (11.0-16.0) g/dL Hct (34.0-47.0) % MCV (81.0-99.0) fL MCH (27.0-31.0) pg MCHC (33.0-37.0) g/dL RDW (11.5-14.5) % Plt Count (130-400) K/uL MPV (7.2-11.7) fL Neut % (Auto) (50.0-75.0) % Lymph % (Auto) (20.0-40.0) % Anson % (Auto) (0.0-10.0) % Eos % (Auto) (0.0-4.0) % Baso % (Auto) (0.0-2.0) % Neut # (Auto) (1.8-7.0) K/uL Lymph # (Auto) (1.0-4.3) K/uL Anson # (Auto) (0.0-0.8) K/uL Eos # (Auto) (0.0-0.7) K/uL Baso # (Auto) (0.0-0.2) K/uL Sodium (132-148) mmol/L Potassium (3.6-5.2) mmol/L Chloride (98-107) mmol/L Carbon Dioxide (22-30) mmol/L Anion Gap (10-20) BUN (7-17) mg/dL Creatinine (0.7-1.2) mg/dL Est GFR ( Amer) Est GFR (Non-Af Amer) POC Glucose (mg/dL) 199 H 150 H 170 H (65-110) mg/dL Random Glucose (65-105) mg/dL Calcium (8.6-10.4) mg/dl Phosphorus (2.5-4.5) mg/dL Magnesium (1.6-2.3) mg/dL Total Bilirubin (0.2-1.3) mg/dL AST (14-36) U/L ALT (9-52) U/L Alkaline Phosphatase (38-126) U/L Total Protein (6.3-8.3) g/dL Albumin (3.5-5.0) g/dL Globulin (2.2-3.9) gm/dL Albumin/Globulin Ratio (1.0-2.1) 12/25/18 12/25/18 12/25/18 Range/Units 22:54 16:49 10:35 WBC (4.8-10.8) K/uL RBC (3.80-5.20) Mil/uL Hgb (11.0-16.0) g/dL Hct (34.0-47.0) % MCV (81.0-99.0) fL MCH (27.0-31.0) pg MCHC (33.0-37.0) g/dL RDW (11.5-14.5) % Plt Count (130-400) K/uL MPV (7.2-11.7) fL Neut % (Auto) (50.0-75.0) % Lymph % (Auto) (20.0-40.0) % Anson % (Auto) (0.0-10.0) % Eos % (Auto) (0.0-4.0) % Baso % (Auto) (0.0-2.0) % Neut # (Auto) (1.8-7.0) K/uL Lymph # (Auto) (1.0-4.3) K/uL Anson # (Auto) (0.0-0.8) K/uL Eos # (Auto) (0.0-0.7) K/uL Baso # (Auto) (0.0-0.2) K/uL Sodium (132-148) mmol/L Potassium (3.6-5.2) mmol/L Chloride (98-107) mmol/L Carbon Dioxide (22-30) mmol/L Anion Gap (10-20) BUN (7-17) mg/dL Creatinine (0.7-1.2) mg/dL Est GFR ( Amer) Est GFR (Non-Af Amer) POC Glucose (mg/dL) 159 H 157 H 195 H (65-110) mg/dL Random Glucose (65-105) mg/dL Calcium (8.6-10.4) mg/dl Phosphorus (2.5-4.5) mg/dL Magnesium (1.6-2.3) mg/dL Total Bilirubin (0.2-1.3) mg/dL AST (14-36) U/L ALT (9-52) U/L Alkaline Phosphatase (38-126) U/L Total Protein (6.3-8.3) g/dL Albumin (3.5-5.0) g/dL Globulin (2.2-3.9) gm/dL Albumin/Globulin Ratio (1.0-2.1) 12/25/18 12/24/18 12/24/18 Range/Units 04:06 22:53 16:38 WBC (4.8-10.8) K/uL RBC (3.80-5.20) Mil/uL Hgb (11.0-16.0) g/dL Hct (34.0-47.0) % MCV (81.0-99.0) fL MCH (27.0-31.0) pg MCHC (33.0-37.0) g/dL RDW (11.5-14.5) % Plt Count (130-400) K/uL MPV (7.2-11.7) fL Neut % (Auto) (50.0-75.0) % Lymph % (Auto) (20.0-40.0) % Anson % (Auto) (0.0-10.0) % Eos % (Auto) (0.0-4.0) % Baso % (Auto) (0.0-2.0) % Neut # (Auto) (1.8-7.0) K/uL Lymph # (Auto) (1.0-4.3) K/uL Anson # (Auto) (0.0-0.8) K/uL Eos # (Auto) (0.0-0.7) K/uL Baso # (Auto) (0.0-0.2) K/uL Sodium (132-148) mmol/L Potassium (3.6-5.2) mmol/L Chloride (98-107) mmol/L Carbon Dioxide (22-30) mmol/L Anion Gap (10-20) BUN (7-17) mg/dL Creatinine (0.7-1.2) mg/dL Est GFR ( Amer) Est GFR (Non-Af Amer) POC Glucose (mg/dL) 187 H 145 H 164 H (65-110) mg/dL Random Glucose (65-105) mg/dL Calcium (8.6-10.4) mg/dl Phosphorus (2.5-4.5) mg/dL Magnesium (1.6-2.3) mg/dL Total Bilirubin (0.2-1.3) mg/dL AST (14-36) U/L ALT (9-52) U/L Alkaline Phosphatase (38-126) U/L Total Protein (6.3-8.3) g/dL Albumin (3.5-5.0) g/dL Globulin (2.2-3.9) gm/dL Albumin/Globulin Ratio (1.0-2.1) 12/24/18 12/21/18 Range/Units 11:07 05:23 WBC (4.8-10.8) K/uL RBC (3.80-5.20) Mil/uL Hgb (11.0-16.0) g/dL Hct (34.0-47.0) % MCV (81.0-99.0) fL MCH (27.0-31.0) pg MCHC (33.0-37.0) g/dL RDW (11.5-14.5) % Plt Count (130-400) K/uL MPV (7.2-11.7) fL Neut % (Auto) (50.0-75.0) % Lymph % (Auto) (20.0-40.0) % Anson % (Auto) (0.0-10.0) % Eos % (Auto) (0.0-4.0) % Baso % (Auto) (0.0-2.0) % Neut # (Auto) (1.8-7.0) K/uL Lymph # (Auto) (1.0-4.3) K/uL Anson # (Auto) (0.0-0.8) K/uL Eos # (Auto) (0.0-0.7) K/uL Baso # (Auto) (0.0-0.2) K/uL Sodium (132-148) mmol/L Potassium (3.6-5.2) mmol/L Chloride (98-107) mmol/L Carbon Dioxide (22-30) mmol/L Anion Gap (10-20) BUN (7-17) mg/dL Creatinine (0.7-1.2) mg/dL Est GFR ( Amer) Est GFR (Non-Af Amer) POC Glucose (mg/dL) 216 H 158 H (65-110) mg/dL Random Glucose (65-105) mg/dL Calcium (8.6-10.4) mg/dl Phosphorus (2.5-4.5) mg/dL Magnesium (1.6-2.3) mg/dL Total Bilirubin (0.2-1.3) mg/dL AST (14-36) U/L ALT (9-52) U/L Alkaline Phosphatase (38-126) U/L Total Protein (6.3-8.3) g/dL Albumin (3.5-5.0) g/dL Globulin (2.2-3.9) gm/dL Albumin/Globulin Ratio (1.0-2.1) Laboratory Results - last 24 hr 12/21/18 12/24/18 12/24/18 05:23 11:07 16:38 WBC RBC Hgb Hct MCV MCH MCHC RDW Plt Count MPV Neut % (Auto) Lymph % (Auto) Anson % (Auto) Eos % (Auto) Baso % (Auto) Neut # (Auto) Lymph # (Auto) Anson # (Auto) Eos # (Auto) Baso # (Auto) Sodium Potassium Chloride Carbon Dioxide Anion Gap BUN Creatinine Est GFR ( Amer) Est GFR (Non-Af Amer) POC Glucose (mg/dL) 158 H 216 H 164 H Random Glucose Calcium Phosphorus Magnesium Total Bilirubin AST ALT Alkaline Phosphatase Total Protein Albumin Globulin Albumin/Globulin Ratio 12/24/18 12/25/18 12/25/18 22:53 04:06 10:35 WBC RBC Hgb Hct MCV MCH MCHC RDW Plt Count MPV Neut % (Auto) Lymph % (Auto) Anson % (Auto) Eos % (Auto) Baso % (Auto) Neut # (Auto) Lymph # (Auto) Anson # (Auto) Eos # (Auto) Baso # (Auto) Sodium Potassium Chloride Carbon Dioxide Anion Gap BUN Creatinine Est GFR ( Amer) Est GFR (Non-Af Amer) POC Glucose (mg/dL) 145 H 187 H 195 H Random Glucose Calcium Phosphorus Magnesium Total Bilirubin AST ALT Alkaline Phosphatase Total Protein Albumin Globulin Albumin/Globulin Ratio 12/25/18 12/25/18 12/26/18 16:49 22:54 03:25 WBC RBC Hgb Hct MCV MCH MCHC RDW Plt Count MPV Neut % (Auto) Lymph % (Auto) Anson % (Auto) Eos % (Auto) Baso % (Auto) Neut # (Auto) Lymph # (Auto) Anson # (Auto) Eos # (Auto) Baso # (Auto) Sodium Potassium Chloride Carbon Dioxide Anion Gap BUN Creatinine Est GFR ( Amer) Est GFR (Non-Af Amer) POC Glucose (mg/dL) 157 H 159 H 170 H Random Glucose Calcium Phosphorus Magnesium Total Bilirubin AST ALT Alkaline Phosphatase Total Protein Albumin Globulin Albumin/Globulin Ratio 12/26/18 12/26/18 12/27/18 10:26 17:05 10:12 WBC RBC Hgb Hct MCV MCH MCHC RDW Plt Count MPV Neut % (Auto) Lymph % (Auto) Anson % (Auto) Eos % (Auto) Baso % (Auto) Neut # (Auto) Lymph # (Auto) Anson # (Auto) Eos # (Auto) Baso # (Auto) Sodium Potassium Chloride Carbon Dioxide Anion Gap BUN Creatinine Est GFR ( Amer) Est GFR (Non-Af Amer) POC Glucose (mg/dL) 150 H 199 H 153 H Random Glucose Calcium Phosphorus Magnesium Total Bilirubin AST ALT Alkaline Phosphatase Total Protein Albumin Globulin Albumin/Globulin Ratio 12/27/18 12/27/18 12/28/18 17:19 22:27 10:24 WBC RBC Hgb Hct MCV MCH MCHC RDW Plt Count MPV Neut % (Auto) Lymph % (Auto) Anson % (Auto) Eos % (Auto) Baso % (Auto) Neut # (Auto) Lymph # (Auto) Anson # (Auto) Eos # (Auto) Baso # (Auto) Sodium Potassium Chloride Carbon Dioxide Anion Gap BUN Creatinine Est GFR ( Amer) Est GFR (Non-Af Amer) POC Glucose (mg/dL) 111 H 134 H 201 H Random Glucose Calcium Phosphorus Magnesium Total Bilirubin AST ALT Alkaline Phosphatase Total Protein Albumin Globulin Albumin/Globulin Ratio 12/29/18 12/29/18 12/30/18 11:20 17:31 00:11 WBC RBC Hgb Hct MCV MCH MCHC RDW Plt Count MPV Neut % (Auto) Lymph % (Auto) Anson % (Auto) Eos % (Auto) Baso % (Auto) Neut # (Auto) Lymph # (Auto) Anson # (Auto) Eos # (Auto) Baso # (Auto) Sodium Potassium Chloride Carbon Dioxide Anion Gap BUN Creatinine Est GFR ( Amer) Est GFR (Non-Af Amer) POC Glucose (mg/dL) 242 H 318 H 231 H Random Glucose Calcium Phosphorus Magnesium Total Bilirubin AST ALT Alkaline Phosphatase Total Protein Albumin Globulin Albumin/Globulin Ratio 12/30/18 12/30/18 12/30/18 04:57 05:45 06:02 WBC 15.0 H RBC 4.03 Hgb 11.3 Hct 35.8 MCV 88.9 MCH 28.0 MCHC 31.5 L RDW 15.1 H Plt Count 163 MPV 10.6 Neut % (Auto) 67.8 Lymph % (Auto) 19.8 L Anson % (Auto) 9.8 Eos % (Auto) 2.4 Baso % (Auto) 0.2 Neut # (Auto) 10.2 H Lymph # (Auto) 3.0 Anson # (Auto) 1.5 H Eos # (Auto) 0.4 Baso # (Auto) 0.0 Sodium 152 H Potassium 2.7 L Chloride 115 H Carbon Dioxide 35 H Anion Gap 5 L BUN 33 H Creatinine 1.1 Est GFR ( Amer) > 60 Est GFR (Non-Af Amer) 53 POC Glucose (mg/dL) 293 H Random Glucose 240 H D Calcium 7.2 L Phosphorus 2.7 Magnesium 1.3 L Total Bilirubin 0.5 AST 60 H D ALT 40 Alkaline Phosphatase 103 Total Protein 5.8 L Albumin 2.7 L Globulin 3.1 Albumin/Globulin Ratio 0.9 L 12/30/18 12/30/18 07:32 11:08 WBC RBC Hgb Hct MCV MCH MCHC RDW Plt Count MPV Neut % (Auto) Lymph % (Auto) Anson % (Auto) Eos % (Auto) Baso % (Auto) Neut # (Auto) Lymph # (Auto) Anson # (Auto) Eos # (Auto) Baso # (Auto) Sodium Potassium Chloride Carbon Dioxide Anion Gap BUN Creatinine Est GFR ( Amer) Est GFR (Non-Af Amer) POC Glucose (mg/dL) 280 H 188 H Random Glucose Calcium Phosphorus Magnesium Total Bilirubin AST ALT Alkaline Phosphatase Total Protein Albumin Globulin Albumin/Globulin Ratio Fingerstick Blood Sugar Results: 188 Review of Systems - Review of Systems Systems not reviewed;Unavailable: Altered Mental Status Assessment/Plan - Assessment and Plan (Free Text) Assessment: 48 y o female PMhx HTN, hyperthyroidism, TIA, anxiety, asthma, Grave's disease, who presented to the ED overnight with c/o severe abd pain, n/v. Per ED pt did not take home meds for about 3 wks, non-compliant with therapy. Pt presented hypertensive and tachycardic in ED, TSH < 0.02 on initial bloodwork, was given IV Labetalol and PO Inderal in the ED. Pt's bp began to drop after and was given fluids and IV glucagon. Pt was evaluated and accepted by ICU team at time, however prior to transfer, started to become bradycardic and went pulseless. Zandra Sanchez was called in ED and pt was resuscitated, ROSC achieved s/p epi x1. Pt subsequently was intubated and placed on mechanical vent. Pt had 2 additional episodes of cardiac arrest while being transferred to ICU that lasted 3-4 mins of chest compressions, received total epi x3 and atropine x1. ROSC achieved, pt had R femoral line placed, started on Levophed drip. Bedside echo revealed severely dilated R ventricle, raising suspicion for possible PE, pt was bolused and started on Heparin drip. CT angio demonstrated no evidence of PE, heparin drip was d/c'd. Pt also has severe hypokinesis of L ventricle. Pt presented with severe metabolic acidosis, hyperkalemia and hypoglycemia. S/p 4 amps bicarb, 1 amp Ca gluconate, 1 amp D50. Currently being monitored in ICU, s/p extubation. Admitted to ICU for management of thyrotoxicosis. Hypotensive improving, bp meds restarted, pressor therapy titrated down. Tube feeds currently, speech therapy consulted, plan for PO trials prn, will reassess early next week. Plan: -S/p extubation -Speech therapy consulted, recs as detailed above -Cont to monitor -Head CT on admission: Limited study given suboptimal pt positing. Streak artifact in posterior fossa limits eval at that level. No acute intracranial abnormality. -Neurology (Dr. Gill) consulted for ?anoxic brain injury, recs appreciated -Video EEG 12/26: Moderate background slowing/attenuation and disorganization of EEG. No seizures, not in status epilepticus. -Repeat video EEG 12/27: improved significantly in past 24 hrs, became normal at end of file -MRI brain ordered as per Neuro recs Cardio: -Tachycardia persistent, hypotension resolved -Levophed and Phenylephrine drips for hypotension to be tapered down -HTN meds: Lopressor bid, Spironolactone daily -Solu-cortef d/c'd as per Endo recs -Echo: LV function severely reduced with diffuse hypokinesis, LVEF 15%. Inferoapex and apical-septum akinetic. LSub optimal assessment of wall motion due to reduced study quality, apex not well seen. IV echo contrast would have improved assessment. R ventricle mod-markedly dilated. RVSF mod reduced. Mild aortic regurg. Mod tricuspid regurg. Ascending aorta mildly dilated. -Repeat echo ordered -Hyperkalemia resolved, cont to trend on labs -Venous duplex LE b/l neg for DVT -Cardiology consulted (Dr. Bah), recs appreciated -CT angio chest neg for PE, Heparin drip d/c'd -Consider repeat echo to re-eval LV function/RV function as per Cardio recs Pulm: -S/p extubation, saturating well, cont to monitor -Metabolic acidosis resolved with most recent ABG -Recent CXR: S/p removal of ET tube, possible very small L pleural effusion. Otherwise no change -Leukocytosis GI: -NPO -Tube feeds -Speech and swallow eval: PO trials prn, will reassess this Mon -D5W @ 100 cc/hr as per Nephro recs for Hypernatremia, pt demonstrating large u rine output -Protonix -Transaminitis resolving, may be 2/2 to shock liver 2/2 to cardiac arrest, cont to trend Heme: -H/H stable, cont to trend -Leukocytosis this am, cont to trend ID: -Leukocytosis, cont to trend -Anbx changed to Merrem as per ID recs -ID consulted, Dr. Strange, recs appreciated -Blood cx NGTD -Urine and sputum cxs neg Endo: -Hx Grave's disease, pt non-compliant with home meds x3 weeks -TSH < 0.02 on admission, recent level the same -R/o thyroid storm? as etiology of symptoms, thyrotoxicosis -Endocrinology (Dr. Weaver) consulted, recs appreciated -Methimazole 20 mg PO q12h, Solu-cortef d/c'd -T4 elevated, thyroperoxidase Ab positive, Thyroglobulin Ab neg; serum cortisol elevated on 12/24 -Pt may be candidate for radioactive ablation therapy of thyroid but will need to be done as outpt; Tapazole needs to be held for 7-10 days prior to procedure -Will likely need close endocrinology f/u as outpatient Renal: -BUN/Cr trending down, cont to monitor -Cont to trend I's/O's -Hypernatremia improving, D5W d/c'd as per Nephro, switched to 0.45% saline at 100 cc/hr -renal sono once stable -Nephro consulted for TANVI (Dr. Call), recs appreciated PPX: -Protonix -Lovenox, SCD -PT eval ordered Pt seen, examined with, and plan discussed with Dr. Shin, attending physician. Moncho Karimi DO PGY-1, [employer] Equipment Design Engineer Pager #[phone] <Nehemiah Shin - Last Filed: 12/30/18 19:28> CCU Objective - Vital Signs / Intake & Output Vital Signs (Last 4 hours): Vital Signs Temp Pulse Resp BP Pulse Ox 12/30/18 18:00 104 H 21 100 12/30/18 17:40 107 H 21 121/54 L 100 12/30/18 17:28 154/94 H 12/30/18 16:39 105 H 22 154/94 H 100 12/30/18 16:00 99 F 12/30/18 15:39 110 H 24 161/92 H 100 Intake and Output (Last 8hrs): Intake & Output 12/30/18 12/30/18 12/30/18 06:59 14:59 22:59 Intake Total 1267.6 1395 885 Output Total 900 1000 Balance 367.6 1395 -115 Weight 142 lb 8 oz Intake: IV 25 Intake, IV Amount 922.6 825 375 Left Antecubital 22.6 PIERRE midline 100 75 pierre midline 800 825 300 Tube Feeding 320 320 160 Other 250 350 Output: Urine 900 1000 Urine, Voided 900 1000 Other: # Bowel Movements 1 1 1 - Medications Active Medications: Active Medications Generic Name Dose Route Start Last Admin Trade Name Freq PRN Reason Stop Dose Admin Acetaminophen 650 mg 12/21/18 15:53 12/24/18 10:31 Tylenol 650mg/20.3ml Solution Ud GT 650 mg Q6 PRN Administration Temperature Enoxaparin Sodium 30 mg 12/23/18 10:00 12/30/18 09:18 Lovenox SC 30 mg DAILY [place] Administration Glimepiride 2 mg 12/30/18 07:30 12/30/18 17:28 Amaryl PO 2 mg ACBD [place] Administration Phenylephrine HCl 30 mg/ 253 mls @ 10.12 mls/hr 12/28/18 19:28 12/30/18 01:00 Dextrose IV 0 mcg/min .Q24H PRN 0 mls/hr TITRATE PER MD ORDER Titration Protocol 20 MCG/MIN Norepinephrine Bitartrate 4 mg 250 mls @ 15 mls/hr 12/29/18 15:45 / Sodium Chloride IV .[id number] PRN TITRATE PER MD ORDER Protocol 4 MCG/MIN Sodium Chloride 1,000 mls @ 75 mls/hr 12/30/18 10:11 12/30/18 11:03 Sodium Chloride 0.45% IV Not Given .[id number] [facility] [facility] Human Regular 0 unit 12/30/18 07:30 12/30/18 16:39 Novolin R SC Not Given ACHS [facility] Protocol Methimazole 20 mg 12/27/18 22:00 12/30/18 09:18 Tapazole PO 20 mg Q12 [place] Administration Metoprolol Tartrate 25 mg 12/30/18 13:30 12/30/18 17:28 Lopressor PO 25 mg BID [place] Administration Pantoprazole Sodium 40 mg 12/28/18 10:00 12/30/18 09:18 Protonix Susp PO 40 mg DAILY [place] Administration Potassium Chloride 40 meq 12/30/18 07:30 12/30/18 13:18 Potassium Chloride Oral Soln NG 12/31/18 01:31 40 meq Q6H [place] Administration Rosuvastatin Calcium 10 mg 12/25/18 22:00 12/29/18 21:09 Crestor PO 10 mg HS [place] Administration Spironolactone 50 mg 12/30/18 10:45 12/30/18 11:01 Aldactone PO 50 mg DAILY [place] Administration - Patient Studies Lab Studies: Lab Studies 12/30/18 12/30/18 12/30/18 Range/Units 16:24 11:08 07:32 WBC (4.8-10.8) K/uL RBC (3.80-5.20) Mil/uL Hgb (11.0-16.0) g/dL Hct (34.0-47.0) % MCV (81.0-99.0) fL MCH (27.0-31.0) pg MCHC (33.0-37.0) g/dL RDW (11.5-14.5) % Plt Count (130-400) K/uL MPV (7.2-11.7) fL Neut % (Auto) (50.0-75.0) % Lymph % (Auto) (20.0-40.0) % Anson % (Auto) (0.0-10.0) % Eos % (Auto) (0.0-4.0) % Baso % (Auto) (0.0-2.0) % Neut # (Auto) (1.8-7.0) K/uL Lymph # (Auto) (1.0-4.3) K/uL Anson # (Auto) (0.0-0.8) K/uL Eos # (Auto) (0.0-0.7) K/uL Baso # (Auto) (0.0-0.2) K/uL Sodium (132-148) mmol/L Potassium (3.6-5.2) mmol/L Chloride (98-107) mmol/L Carbon Dioxide (22-30) mmol/L Anion Gap (10-20) BUN (7-17) mg/dL Creatinine (0.7-1.2) mg/dL Est GFR ( Amer) Est GFR (Non-Af Amer) POC Glucose (mg/dL) 140 H 188 H 280 H (65-110) mg/dL Random Glucose (65-105) mg/dL Calcium (8.6-10.4) mg/dl Phosphorus (2.5-4.5) mg/dL Magnesium (1.6-2.3) mg/dL Total Bilirubin (0.2-1.3) mg/dL AST (14-36) U/L ALT (9-52) U/L Alkaline Phosphatase (38-126) U/L Total Protein (6.3-8.3) g/dL Albumin (3.5-5.0) g/dL Globulin (2.2-3.9) gm/dL Albumin/Globulin Ratio (1.0-2.1) 12/30/18 12/30/18 12/30/18 Range/Units 06:02 05:45 04:57 WBC 15.0 H (4.8-10.8) K/uL RBC 4.03 (3.80-5.20) Mil/uL Hgb 11.3 (11.0-16.0) g/dL Hct 35.8 (34.0-47.0) % MCV 88.9 (81.0-99.0) fL MCH 28.0 (27.0-31.0) pg MCHC 31.5 L (33.0-37.0) g/dL RDW 15.1 H (11.5-14.5) % Plt Count 163 (130-400) K/uL MPV 10.6 (7.2-11.7) fL Neut % (Auto) 67.8 (50.0-75.0) % Lymph % (Auto) 19.8 L (20.0-40.0) % Anson % (Auto) 9.8 (0.0-10.0) % Eos % (Auto) 2.4 (0.0-4.0) % Baso % (Auto) 0.2 (0.0-2.0) % Neut # (Auto) 10.2 H (1.8-7.0) K/uL Lymph # (Auto) 3.0 (1.0-4.3) K/uL Anson # (Auto) 1.5 H (0.0-0.8) K/uL Eos # (Auto) 0.4 (0.0-0.7) K/uL Baso # (Auto) 0.0 (0.0-0.2) K/uL Sodium 152 H (132-148) mmol/L Potassium 2.7 L (3.6-5.2) mmol/L Chloride 115 H (98-107) mmol/L Carbon Dioxide 35 H (22-30) mmol/L Anion Gap 5 L (10-20) BUN 33 H (7-17) mg/dL Creatinine 1.1 (0.7-1.2) mg/dL Est GFR ( Amer) > 60 Est GFR (Non-Af Amer) 53 POC Glucose (mg/dL) 293 H (65-110) mg/dL Random Glucose 240 H D (65-105) mg/dL Calcium 7.2 L (8.6-10.4) mg/dl Phosphorus 2.7 (2.5-4.5) mg/dL Magnesium 1.3 L (1.6-2.3) mg/dL Total Bilirubin 0.5 (0.2-1.3) mg/dL AST 60 H D (14-36) U/L ALT 40 (9-52) U/L Alkaline Phosphatase 103 (38-126) U/L Total Protein 5.8 L (6.3-8.3) g/dL Albumin 2.7 L (3.5-5.0) g/dL Globulin 3.1 (2.2-3.9) gm/dL Albumin/Globulin Ratio 0.9 L (1.0-2.1) 12/30/18 12/28/18 12/27/18 Range/Units 00:11 10:24 22:27 WBC (4.8-10.8) K/uL RBC (3.80-5.20) Mil/uL Hgb (11.0-16.0) g/dL Hct (34.0-47.0) % MCV (81.0-99.0) fL MCH (27.0-31.0) pg MCHC (33.0-37.0) g/dL RDW (11.5-14.5) % Plt Count (130-400) K/uL MPV (7.2-11.7) fL Neut % (Auto) (50.0-75.0) % Lymph % (Auto) (20.0-40.0) % Anson % (Auto) (0.0-10.0) % Eos % (Auto) (0.0-4.0) % Baso % (Auto) (0.0-2.0) % Neut # (Auto) (1.8-7.0) K/uL Lymph # (Auto) (1.0-4.3) K/uL Anson # (Auto) (0.0-0.8) K/uL Eos # (Auto) (0.0-0.7) K/uL Baso # (Auto) (0.0-0.2) K/uL Sodium (132-148) mmol/L Potassium (3.6-5.2) mmol/L Chloride (98-107) mmol/L Carbon Dioxide (22-30) mmol/L Anion Gap (10-20) BUN (7-17) mg/dL Creatinine (0.7-1.2) mg/dL Est GFR ( Amer) Est GFR (Non-Af Amer) POC Glucose (mg/dL) 231 H 201 H 134 H (65-110) mg/dL Random Glucose (65-105) mg/dL Calcium (8.6-10.4) mg/dl Phosphorus (2.5-4.5) mg/dL Magnesium (1.6-2.3) mg/dL Total Bilirubin (0.2-1.3) mg/dL AST (14-36) U/L ALT (9-52) U/L Alkaline Phosphatase (38-126) U/L Total Protein (6.3-8.3) g/dL Albumin (3.5-5.0) g/dL Globulin (2.2-3.9) gm/dL Albumin/Globulin Ratio (1.0-2.1) 12/27/18 12/27/18 12/26/18 Range/Units 17:19 10:12 17:05 WBC (4.8-10.8) K/uL RBC (3.80-5.20) Mil/uL Hgb (11.0-16.0) g/dL Hct (34.0-47.0) % MCV (81.0-99.0) fL MCH (27.0-31.0) pg MCHC (33.0-37.0) g/dL RDW (11.5-14.5) % Plt Count (130-400) K/uL MPV (7.2-11.7) fL Neut % (Auto) (50.0-75.0) % Lymph % (Auto) (20.0-40.0) % Anson % (Auto) (0.0-10.0) % Eos % (Auto) (0.0-4.0) % Baso % (Auto) (0.0-2.0) % Neut # (Auto) (1.8-7.0) K/uL Lymph # (Auto) (1.0-4.3) K/uL Anson # (Auto) (0.0-0.8) K/uL Eos # (Auto) (0.0-0.7) K/uL Baso # (Auto) (0.0-0.2) K/uL Sodium (132-148) mmol/L Potassium (3.6-5.2) mmol/L Chloride (98-107) mmol/L Carbon Dioxide (22-30) mmol/L Anion Gap (10-20) BUN (7-17) mg/dL Creatinine (0.7-1.2) mg/dL Est GFR ( Amer) Est GFR (Non-Af Amer) POC Glucose (mg/dL) 111 H 153 H 199 H (65-110) mg/dL Random Glucose (65-105) mg/dL Calcium (8.6-10.4) mg/dl Phosphorus (2.5-4.5) mg/dL Magnesium (1.6-2.3) mg/dL Total Bilirubin (0.2-1.3) mg/dL AST (14-36) U/L ALT (9-52) U/L Alkaline Phosphatase (38-126) U/L Total Protein (6.3-8.3) g/dL Albumin (3.5-5.0) g/dL Globulin (2.2-3.9) gm/dL Albumin/Globulin Ratio (1.0-2.1) 12/26/18 12/26/18 12/25/18 Range/Units 10:26 03:25 22:54 WBC (4.8-10.8) K/uL RBC (3.80-5.20) Mil/uL Hgb (11.0-16.0) g/dL Hct (34.0-47.0) % MCV (81.0-99.0) fL MCH (27.0-31.0) pg MCHC (33.0-37.0) g/dL RDW (11.5-14.5) % Plt Count (130-400) K/uL MPV (7.2-11.7) fL Neut % (Auto) (50.0-75.0) % Lymph % (Auto) (20.0-40.0) % Anson % (Auto) (0.0-10.0) % Eos % (Auto) (0.0-4.0) % Baso % (Auto) (0.0-2.0) % Neut # (Auto) (1.8-7.0) K/uL Lymph # (Auto) (1.0-4.3) K/uL Anson # (Auto) (0.0-0.8) K/uL Eos # (Auto) (0.0-0.7) K/uL Baso # (Auto) (0.0-0.2) K/uL Sodium (132-148) mmol/L Potassium (3.6-5.2) mmol/L Chloride (98-107) mmol/L Carbon Dioxide (22-30) mmol/L Anion Gap (10-20) BUN (7-17) mg/dL Creatinine (0.7-1.2) mg/dL Est GFR ( Amer) Est GFR (Non-Af Amer) POC Glucose (mg/dL) 150 H 170 H 159 H (65-110) mg/dL Random Glucose (65-105) mg/dL Calcium (8.6-10.4) mg/dl Phosphorus (2.5-4.5) mg/dL Magnesium (1.6-2.3) mg/dL Total Bilirubin (0.2-1.3) mg/dL AST (14-36) U/L ALT (9-52) U/L Alkaline Phosphatase (38-126) U/L Total Protein (6.3-8.3) g/dL Albumin (3.5-5.0) g/dL Globulin (2.2-3.9) gm/dL Albumin/Globulin Ratio (1.0-2.1) 12/25/18 12/25/18 12/25/18 Range/Units 16:49 10:35 04:06 WBC (4.8-10.8) K/uL RBC (3.80-5.20) Mil/uL Hgb (11.0-16.0) g/dL Hct (34.0-47.0) % MCV (81.0-99.0) fL MCH (27.0-31.0) pg MCHC (33.0-37.0) g/dL RDW (11.5-14.5) % Plt Count (130-400) K/uL MPV (7.2-11.7) fL Neut % (Auto) (50.0-75.0) % Lymph % (Auto) (20.0-40.0) % Anson % (Auto) (0.0-10.0) % Eos % (Auto) (0.0-4.0) % Baso % (Auto) (0.0-2.0) % Neut # (Auto) (1.8-7.0) K/uL Lymph # (Auto) (1.0-4.3) K/uL Anson # (Auto) (0.0-0.8) K/uL Eos # (Auto) (0.0-0.7) K/uL Baso # (Auto) (0.0-0.2) K/uL Sodium (132-148) mmol/L Potassium (3.6-5.2) mmol/L Chloride (98-107) mmol/L Carbon Dioxide (22-30) mmol/L Anion Gap (10-20) BUN (7-17) mg/dL Creatinine (0.7-1.2) mg/dL Est GFR ( Amer) Est GFR (Non-Af Amer) POC Glucose (mg/dL) 157 H 195 H 187 H (65-110) mg/dL Random Glucose (65-105) mg/dL Calcium (8.6-10.4) mg/dl Phosphorus (2.5-4.5) mg/dL Magnesium (1.6-2.3) mg/dL Total Bilirubin (0.2-1.3) mg/dL AST (14-36) U/L ALT (9-52) U/L Alkaline Phosphatase (38-126) U/L Total Protein (6.3-8.3) g/dL Albumin (3.5-5.0) g/dL Globulin (2.2-3.9) gm/dL Albumin/Globulin Ratio (1.0-2.1) 12/24/18 12/24/18 12/24/18 Range/Units 22:53 16:38 11:07 WBC (4.8-10.8) K/uL RBC (3.80-5.20) Mil/uL Hgb (11.0-16.0) g/dL Hct (34.0-47.0) % MCV (81.0-99.0) fL MCH (27.0-31.0) pg MCHC (33.0-37.0) g/dL RDW (11.5-14.5) % Plt Count (130-400) K/uL MPV (7.2-11.7) fL Neut % (Auto) (50.0-75.0) % Lymph % (Auto) (20.0-40.0) % Anson % (Auto) (0.0-10.0) % Eos % (Auto) (0.0-4.0) % Baso % (Auto) (0.0-2.0) % Neut # (Auto) (1.8-7.0) K/uL Lymph # (Auto) (1.0-4.3) K/uL Anson # (Auto) (0.0-0.8) K/uL Eos # (Auto) (0.0-0.7) K/uL Baso # (Auto) (0.0-0.2) K/uL Sodium (132-148) mmol/L Potassium (3.6-5.2) mmol/L Chloride (98-107) mmol/L Carbon Dioxide (22-30) mmol/L Anion Gap (10-20) BUN (7-17) mg/dL Creatinine (0.7-1.2) mg/dL Est GFR ( Amer) Est GFR (Non-Af Amer) POC Glucose (mg/dL) 145 H 164 H 216 H (65-110) mg/dL Random Glucose (65-105) mg/dL Calcium (8.6-10.4) mg/dl Phosphorus (2.5-4.5) mg/dL Magnesium (1.6-2.3) mg/dL Total Bilirubin (0.2-1.3) mg/dL AST (14-36) U/L ALT (9-52) U/L Alkaline Phosphatase (38-126) U/L Total Protein (6.3-8.3) g/dL Albumin (3.5-5.0) g/dL Globulin (2.2-3.9) gm/dL Albumin/Globulin Ratio (1.0-2.1) 12/21/18 Range/Units 05:23 WBC (4.8-10.8) K/uL RBC (3.80-5.20) Mil/uL Hgb (11.0-16.0) g/dL Hct (34.0-47.0) % MCV (81.0-99.0) fL MCH (27.0-31.0) pg MCHC (33.0-37.0) g/dL RDW (11.5-14.5) % Plt Count (130-400) K/uL MPV (7.2-11.7) fL Neut % (Auto) (50.0-75.0) % Lymph % (Auto) (20.0-40.0) % Anson % (Auto) (0.0-10.0) % Eos % (Auto) (0.0-4.0) % Baso % (Auto) (0.0-2.0) % Neut # (Auto) (1.8-7.0) K/uL Lymph # (Auto) (1.0-4.3) K/uL Anson # (Auto) (0.0-0.8) K/uL Eos # (Auto) (0.0-0.7) K/uL Baso # (Auto) (0.0-0.2) K/uL Sodium (132-148) mmol/L Potassium (3.6-5.2) mmol/L Chloride (98-107) mmol/L Carbon Dioxide (22-30) mmol/L Anion Gap (10-20) BUN (7-17) mg/dL Creatinine (0.7-1.2) mg/dL Est GFR ( Amer) Est GFR (Non-Af Amer) POC Glucose (mg/dL) 158 H (65-110) mg/dL Random Glucose (65-105) mg/dL Calcium (8.6-10.4) mg/dl Phosphorus (2.5-4.5) mg/dL Magnesium (1.6-2.3) mg/dL Total Bilirubin (0.2-1.3) mg/dL AST (14-36) U/L ALT (9-52) U/L Alkaline Phosphatase (38-126) U/L Total Protein (6.3-8.3) g/dL Albumin (3.5-5.0) g/dL Globulin (2.2-3.9) gm/dL Albumin/Globulin Ratio (1.0-2.1) Laboratory Results - last 24 hr 12/21/18 12/24/18 12/24/18 05:23 11:07 16:38 WBC RBC Hgb Hct MCV MCH MCHC RDW Plt Count MPV Neut % (Auto) Lymph % (Auto) Anson % (Auto) Eos % (Auto) Baso % (Auto) Neut # (Auto) Lymph # (Auto) Anson # (Auto) Eos # (Auto) Baso # (Auto) Sodium Potassium Chloride Carbon Dioxide Anion Gap BUN Creatinine Est GFR ( Amer) Est GFR (Non-Af Amer) POC Glucose (mg/dL) 158 H 216 H 164 H Random Glucose Calcium Phosphorus Magnesium Total Bilirubin AST ALT Alkaline Phosphatase Total Protein Albumin Globulin Albumin/Globulin Ratio 12/24/18 12/25/18 12/25/18 22:53 04:06 10:35 WBC RBC Hgb Hct MCV MCH MCHC RDW Plt Count MPV Neut % (Auto) Lymph % (Auto) Anson % (Auto) Eos % (Auto) Baso % (Auto) Neut # (Auto) Lymph # (Auto) Anson # (Auto) Eos # (Auto) Baso # (Auto) Sodium Potassium Chloride Carbon Dioxide Anion Gap BUN Creatinine Est GFR ( Amer) Est GFR (Non-Af Amer) POC Glucose (mg/dL) 145 H 187 H 195 H Random Glucose Calcium Phosphorus Magnesium Total Bilirubin AST ALT Alkaline Phosphatase Total Protein Albumin Globulin Albumin/Globulin Ratio 12/25/18 12/25/18 12/26/18 16:49 22:54 03:25 WBC RBC Hgb Hct MCV MCH MCHC RDW Plt Count MPV Neut % (Auto) Lymph % (Auto) Anson % (Auto) Eos % (Auto) Baso % (Auto) Neut # (Auto) Lymph # (Auto) Anson # (Auto) Eos # (Auto) Baso # (Auto) Sodium Potassium Chloride Carbon Dioxide Anion Gap BUN Creatinine Est GFR ( Amer) Est GFR (Non-Af Amer) POC Glucose (mg/dL) 157 H 159 H 170 H Random Glucose Calcium Phosphorus Magnesium Total Bilirubin AST ALT Alkaline Phosphatase Total Protein Albumin Globulin Albumin/Globulin Ratio 12/26/18 12/26/18 12/27/18 10:26 17:05 10:12 WBC RBC Hgb Hct MCV MCH MCHC RDW Plt Count MPV Neut % (Auto) Lymph % (Auto) Anson % (Auto) Eos % (Auto) Baso % (Auto) Neut # (Auto) Lymph # (Auto) Anson # (Auto) Eos # (Auto) Baso # (Auto) Sodium Potassium Chloride Carbon Dioxide Anion Gap BUN Creatinine Est GFR ( Amer) Est GFR (Non-Af Amer) POC Glucose (mg/dL) 150 H 199 H 153 H Random Glucose Calcium Phosphorus Magnesium Total Bilirubin AST ALT Alkaline Phosphatase Total Protein Albumin Globulin Albumin/Globulin Ratio 12/27/18 12/27/18 12/28/18 17:19 22:27 10:24 WBC RBC Hgb Hct MCV MCH MCHC RDW Plt Count MPV Neut % (Auto) Lymph % (Auto) Anson % (Auto) Eos % (Auto) Baso % (Auto) Neut # (Auto) Lymph # (Auto) Anson # (Auto) Eos # (Auto) Baso # (Auto) Sodium Potassium Chloride Carbon Dioxide Anion Gap BUN Creatinine Est GFR ( Amer) Est GFR (Non-Af Amer) POC Glucose (mg/dL) 111 H 134 H 201 H Random Glucose Calcium Phosphorus Magnesium Total Bilirubin AST ALT Alkaline Phosphatase Total Protein Albumin Globulin Albumin/Globulin Ratio 12/30/18 12/30/18 12/30/18 00:11 04:57 05:45 WBC RBC Hgb Hct MCV MCH MCHC RDW Plt Count MPV Neut % (Auto) Lymph % (Auto) Anson % (Auto) Eos % (Auto) Baso % (Auto) Neut # (Auto) Lymph # (Auto) Anson # (Auto) Eos # (Auto) Baso # (Auto) Sodium 152 H Potassium 2.7 L Chloride 115 H Carbon Dioxide 35 H Anion Gap 5 L BUN 33 H Creatinine 1.1 Est GFR ( Amer) > 60 Est GFR (Non-Af Amer) 53 POC Glucose (mg/dL) 231 H 293 H Random Glucose 240 H D Calcium 7.2 L Phosphorus 2.7 Magnesium 1.3 L Total Bilirubin 0.5 AST 60 H D ALT 40 Alkaline Phosphatase 103 Total Protein 5.8 L Albumin 2.7 L Globulin 3.1 Albumin/Globulin Ratio 0.9 L 12/30/18 12/30/18 12/30/18 06:02 07:32 11:08 WBC 15.0 H RBC 4.03 Hgb 11.3 Hct 35.8 MCV 88.9 MCH 28.0 MCHC 31.5 L RDW 15.1 H Plt Count 163 MPV 10.6 Neut % (Auto) 67.8 Lymph % (Auto) 19.8 L Anson % (Auto) 9.8 Eos % (Auto) 2.4 Baso % (Auto) 0.2 Neut # (Auto) 10.2 H Lymph # (Auto) 3.0 Anson # (Auto) 1.5 H Eos # (Auto) 0.4 Baso # (Auto) 0.0 Sodium Potassium Chloride Carbon Dioxide Anion Gap BUN Creatinine Est GFR ( Amer) Est GFR (Non-Af Amer) POC Glucose (mg/dL) 280 H 188 H Random Glucose Calcium Phosphorus Magnesium Total Bilirubin AST ALT Alkaline Phosphatase Total Protein Albumin Globulin Albumin/Globulin Ratio 12/30/18 16:24 WBC RBC Hgb Hct MCV MCH MCHC RDW Plt Count MPV Neut % (Auto) Lymph % (Auto) Anson % (Auto) Eos % (Auto) Baso % (Auto) Neut # (Auto) Lymph # (Auto) Anson # (Auto) Eos # (Auto) Baso # (Auto) Sodium Potassium Chloride Carbon Dioxide Anion Gap BUN Creatinine Est GFR ( Amer) Est GFR (Non-Af Amer) POC Glucose (mg/dL) 140 H Random Glucose Calcium Phosphorus Magnesium Total Bilirubin AST ALT Alkaline Phosphatase Total Protein Albumin Globulin Albumin/Globulin Ratio Attending/Attestation - Attestation I have personally seen and examined this patient.: Yes I have fully participated in the care of the patient.: Yes I have reviewed all pertinent clinical information: Yes Notes (Text): 12/30/18 19:25 I have seen and examined the patient. Medical records, lab studies, and imaging were reviewed by me and a management plan was formulated on multidisciplinary rounds with resident Dr. Karimi. I agree with their documented assessment and plan. Started patient on lopressor with good reduction in HR. Starting spironolactone for systolic CHF. Not starting anti-hypertensives yet, as recently hemodynamically labile. Will start tomorrow if still hypertensive. Critical Care Time 35 minutes. Multi-disciplinary rounds were performed with house staff, nursing, speech therapy, respiratory therapy, pharmacy and nutrition with integrated input from the primary team/attending and other consulting services. The documented time is cumulative and includes review of patient data/exams/labs/chart review and examination of the patient on rounds and throughout the day; time is exclusive of any procedures or teaching time.
--- NOTE | 2018-12-30 18:56 | CP.PCM.PN ---
Subjective - Date & Time of Evaluation Date of Evaluation: 12/30/18 Time of Evaluation: 07:00 - Subjective Subjective: afeb off antibiotics NGT in place weak lethargic nad Objective - Vital Signs/Intake and Output Vital Signs (last 24 hours): Temp Pulse Resp BP Pulse Ox 99 F 104 H 21 121/54 L 100 12/30/18 16:00 12/30/18 18:00 12/30/18 18:00 12/30/18 17:40 12/30/18 18:00 Intake and Output: 12/30/18 12/30/18 06:59 18:59 Intake Total 2110.2 2280 Output Total 900 1000 Balance 1210.2 1280 - Medications Medications: Current Medications Acetaminophen (Tylenol 650mg/20.3ml Solution Ud) 650 mg GT Q6 PRN PRN Reason: Temperature Last Admin: 12/24/18 10:31 Dose: 650 mg Enoxaparin Sodium (Lovenox) 30 mg SC DAILY [facility] Last Admin: 12/30/18 09:18 Dose: 30 mg Glimepiride (Amaryl) 2 mg PO ACBD [facility] Last Admin: 12/30/18 17:28 Dose: 2 mg Phenylephrine HCl 30 mg/ (Dextrose) 253 mls @ 10.12 mls/hr IV .Q24H PRN; Protocol PRN Reason: TITRATE PER MD ORDER Last Titration: 12/30/18 01:00 Dose: 0 mcg/min, 0 mls/hr Norepinephrine Bitartrate 4 mg (/ Sodium Chloride) 250 mls @ 15 mls/hr IV .[id number] PRN; Protocol PRN Reason: TITRATE PER MD ORDER Sodium Chloride (Sodium Chloride 0.45%) 1,000 mls @ 75 mls/hr IV .[id number] [facility] Last Admin: 12/30/18 11:03 Dose: Not Given Insulin Human Regular (Novolin R) 0 unit SC ACHS [facility]; Protocol Last Admin: 12/30/18 16:39 Dose: Not Given Methimazole (Tapazole) 20 mg PO Q12 [facility] Last Admin: 12/30/18 09:18 Dose: 20 mg Metoprolol Tartrate (Lopressor) 25 mg PO BID [facility] Last Admin: 12/30/18 17:28 Dose: 25 mg Pantoprazole Sodium (Protonix Susp) 40 mg PO DAILY [facility] Last Admin: 12/30/18 09:18 Dose: 40 mg Potassium Chloride (Potassium Chloride Oral Soln) 40 meq NG Q6H [facility] Stop: 12/31/18 01:31 Last Admin: 12/30/18 13:18 Dose: 40 meq Rosuvastatin Calcium (Crestor) 10 mg PO HS [facility] Last Admin: 12/29/18 21:09 Dose: 10 mg Spironolactone (Aldactone) 50 mg PO DAILY [facility] Last Admin: 12/30/18 11:01 Dose: 50 mg - Labs Labs: 12/30/18 06:02 12/30/18 05:45 PT 14.1 SECONDS (9.7-12.2) H 12/26/18 06:07 INR 1.3 12/26/18 06:07 APTT 32 SECONDS (21-34) 12/26/18 06:07 - Constitutional Appears: No Acute Distress, Confused, Chronically Ill - Head Exam Head Exam: NORMOCEPHALIC - Eye Exam Eye Exam: absent: Scleral icterus - ENT Exam ENT Exam: Mucous Membranes Dry - Neck Exam Neck Exam: absent: Lymphadenopathy - Respiratory Exam Respiratory Exam: Decreased Breath Sounds - Cardiovascular Exam Cardiovascular Exam: REGULAR RHYTHM - GI/Abdominal Exam GI & Abdominal Exam: Distended, Soft - Rectal Exam Rectal Exam: Deferred - Exam Exam: NORMAL INSPECTION - Extremities Exam Extremities Exam: absent: Pedal Edema - Back Exam Back Exam: absent: CVA tenderness (L), CVA tenderness (R) - Neurological Exam Neurological Exam: Altered, CN II-XII Intact, Motor Sensory Deficit - Psychiatric Exam Psychiatric exam: Depressed - Skin Skin Exam: Dry Assessment and Plan (1) Fever Status: Acute (2) TANVI (acute kidney injury) Status: Acute (3) Cardiac arrest Status: Acute (4) Cardiomyopathy Status: Acute (5) Thyrotoxicosis Status: Acute - Assessment and Plan (Free Text) Assessment: observe off antibiotics reculture as needed
--- NOTE | 2018-12-30 20:10 | CP.PCM.PN ---
Subjective - Date & Time of Evaluation Date of Evaluation: 12/30/18 - Subjective Subjective: patient seen and examined today no diarrhea, no fever, no vomiting, no shortness of breath Objective - Vital Signs/Intake and Output Vital Signs (last 24 hours): Temp Pulse Resp BP Pulse Ox 99 F 105 H 14 144/81 100 12/30/18 16:00 12/30/18 19:39 12/30/18 19:39 12/30/18 19:39 12/30/18 19:39 Intake and Output: 12/30/18 12/31/18 18:59 06:59 Intake Total 2280 115 Output Total 1000 Balance 1280 115 - Medications Medications: Current Medications Acetaminophen (Tylenol 650mg/20.3ml Solution Ud) 650 mg GT Q6 PRN PRN Reason: Temperature Last Admin: 12/24/18 10:31 Dose: 650 mg Enoxaparin Sodium (Lovenox) 30 mg SC DAILY [facility] Last Admin: 12/30/18 09:18 Dose: 30 mg Glimepiride (Amaryl) 2 mg PO ACBD [facility] Last Admin: 12/30/18 17:28 Dose: 2 mg Phenylephrine HCl 30 mg/ (Dextrose) 253 mls @ 10.12 mls/hr IV .Q24H PRN; Protocol PRN Reason: TITRATE PER MD ORDER Last Titration: 12/30/18 01:00 Dose: 0 mcg/min, 0 mls/hr Norepinephrine Bitartrate 4 mg (/ Sodium Chloride) 250 mls @ 15 mls/hr IV .[id number] PRN; Protocol PRN Reason: TITRATE PER MD ORDER Sodium Chloride (Sodium Chloride 0.45%) 1,000 mls @ 75 mls/hr IV .[id number] [facility] Last Admin: 12/30/18 11:03 Dose: Not Given Insulin Human Regular (Novolin R) 0 unit SC ACHS [facility]; Protocol Last Admin: 12/30/18 16:39 Dose: Not Given Methimazole (Tapazole) 20 mg PO Q12 [facility] Last Admin: 12/30/18 09:18 Dose: 20 mg Metoprolol Tartrate (Lopressor) 25 mg PO BID [facility] Last Admin: 12/30/18 17:28 Dose: 25 mg Pantoprazole Sodium (Protonix Susp) 40 mg PO DAILY [facility] Last Admin: 12/30/18 09:18 Dose: 40 mg Potassium Chloride (Potassium Chloride Oral Soln) 40 meq NG Q6H [place] Stop: 12/31/18 01:31 Last Admin: 12/30/18 13:18 Dose: 40 meq Rosuvastatin Calcium (Crestor) 10 mg PO HS [facility] Last Admin: 12/29/18 21:09 Dose: 10 mg Spironolactone (Aldactone) 50 mg PO DAILY [facility] Last Admin: 12/30/18 11:01 Dose: 50 mg - Labs Labs: 12/30/18 06:02 12/30/18 05:45 PT 14.1 SECONDS (9.7-12.2) H 12/26/18 06:07 INR 1.3 12/26/18 06:07 APTT 32 SECONDS (21-34) 12/26/18 06:07 - Constitutional Appears: Well - Head Exam Head Exam: ATRAUMATIC, NORMAL INSPECTION, NORMOCEPHALIC - Eye Exam Eye Exam: EOMI, Normal appearance, PERRL Pupil Exam: NORMAL ACCOMODATION, PERRL - ENT Exam ENT Exam: Mucous Membranes Moist, Normal Exam - Neck Exam Neck Exam: Full ROM, Normal Inspection. absent: Lymphadenopathy - Respiratory Exam Respiratory Exam: Decreased Breath Sounds - Cardiovascular Exam Cardiovascular Exam: REGULAR RHYTHM, +S1, +S2 - GI/Abdominal Exam GI & Abdominal Exam: Soft, Diminished Bowel Sounds - Rectal Exam Rectal Exam: Deferred Assessment and Plan - Assessment and Plan (Free Text) Plan: labs reviewed vitals reviewed medications reviewed aldactone amaryl crestor lopressor lovenox norepinephrine bitartrate 4mg novolin r phhenylephrine hcl 30mg potassium chloride oral sln protonix susp sodium chloride 0.45% tapazole tylenol 650mg/20.3ml solution ud father and other family bedsdie aldactone added bco of persistenceof low k kcl 40 q 6 hr still ngt ube feeding swallowing irma vazquez with nurse
[2018-12-30] MEDS: Acetaminophen 650mg/20.3ml solution UD GT PRN (23:07)
[2018-12-31] MEDS: Potassium Chloride 20 mEq/15 ml LIQ UD NG SCH (01:30)
--- NOTE | 2018-12-31 03:09 | PN ---
DATE: 12/30/2018 ENDOCRINOLOGY FOLLOWUP NOTE LOCATION: In ICU, room 18. SUBJECTIVE: This is a 48-year-old female with overt thyrotoxicosis, presenting here with marked hyperthyroidism with supervening acute cardiopulmonary arrest and intubation and has since then been extubated and is improving clinically and hemodynamically as noted thereof. LABORATORY DATA: Her chemistry showed a BUN of 33, sodium 152, potassium 2.7, chloride 115, CO2 of 35, glucose 240 and creatinine 1.1. Her glucose levels are fluctuating but improved and are ranged from 140 to 207 mg/dL. PLAN OF MANAGEMENT: So at this time, we will continue to modify Tapazole at 20 mg every 12 hours as given. We will also continue the Amaryl given at the low dose of 2 mg b.i.d. as ordered. We will obtain serial chemistries as supplement accordingly as needed. We will continue the low-dose correction scale using regular insulin as ordered. We will follow and advise accordingly. Linda Weaver MD
[2018-12-31 06:38] LABS: BASO % 0.1 % (0.0-2.0); EOS # 0.3 K/uL (0.0-0.7); EOS % 1.6 % (0.0-4.0); HEMOGLOBIN 12.3 g/dL (11.0-16.0); LYMPH # 2.6 K/uL (1.0-4.3); LYMPH % 15.6 % (20.0-40.0); MEAN CELL VOLUME 89.4 fL (81.0-99.0); MEAN CORPUSCULAR HEMOGLOBIN 28.3 pg (27.0-31.0); MEAN CORPUSCULAR HGB CONC 31.6 g/dL (33.0-37.0); MEAN PLATELET VOLUME 10.7 fL (7.2-11.7); MONO # 1.4 K/uL (0.0-0.8); MONO % 8.2 % (0.0-10.0); NEUT # 12.5 K/uL (1.8-7.0); NEUT % 74.5 % (50.0-75.0); RBC 4.34 Mil/uL (3.80-5.20); WHITE BLOOD COUNT 16.8 K/uL (4.8-10.8)
[2018-12-31 07:00] LABS: ALB/GLOB RATIO 0.9 (1.0-2.1); ALBUMIN 3.1 g/dL (3.5-5.0); ALT/SGPT 44 U/L (9-52); AST/SGOT 57 U/L (14-36); BLOOD UREA NITROGEN 19 mg/dL (7-17); CALCIUM 8.1 mg/dl (8.6-10.4); GFR NON-AFRICAN AMERICAN > 60
[2018-12-31] MEDS: (Novolin R) Insulin Human Regular 100 units/ml vial SC SCH ×4 (08:03→22:58)
[2018-12-31] MEDS: Enoxaparin 30 mg Syringe SC SCH (09:15)
--- NOTE | 2018-12-31 09:32 | CP.PCM.PN ---
Subjective - Date & Time of Evaluation Date of Evaluation: 12/31/18 Time of Evaluation: 09:00 - Subjective Subjective: f/u dysphagia. Covering DR Blair,. Pt seen with RN No RB. melena, SZ, fever, [place], cough, hematuria, hemoptysis Objective - Vital Signs/Intake and Output Vital Signs (last 24 hours): Temp Pulse Resp BP Pulse Ox 98.5 F 128 H 26 H 145/99 H 100 12/31/18 08:00 12/31/18 09:00 12/31/18 08:39 12/31/18 09:16 12/31/18 09:00 Intake and Output: 12/31/18 12/31/18 06:59 18:59 Intake Total 2675 230 Output Total 1100 Balance 1575 230 - Medications Medications: Current Medications Acetaminophen (Tylenol 650mg/20.3ml Solution Ud) 650 mg GT Q6 PRN PRN Reason: Temperature Last Admin: 12/30/18 23:07 Dose: 650 mg Enoxaparin Sodium (Lovenox) 30 mg SC DAILY [facility] Last Admin: 12/31/18 09:15 Dose: 30 mg Glimepiride (Amaryl) 2 mg PO ACBD [facility] Last Admin: 12/31/18 07:50 Dose: 2 mg Phenylephrine HCl 30 mg/ (Dextrose) 253 mls @ 10.12 mls/hr IV .Q24H PRN; Protocol PRN Reason: TITRATE PER MD ORDER Last Titration: 12/30/18 01:00 Dose: 0 mcg/min, 0 mls/hr Sodium Chloride (Sodium Chloride 0.45%) 1,000 mls @ 75 mls/hr IV .[id number] [facility] Last Admin: 12/30/18 23:55 Dose: Not Given Insulin Human Regular (Novolin R) 0 unit SC ACHS [facility]; Protocol Last Admin: 12/31/18 08:03 Dose: Not Given Methimazole (Tapazole) 20 mg PO Q12 [facility] Last Admin: 12/31/18 09:15 Dose: 20 mg Metoprolol Tartrate (Lopressor) 50 mg PO BID [facility] Pantoprazole Sodium (Protonix Susp) 40 mg PO DAILY [facility] Last Admin: 12/30/18 09:18 Dose: 40 mg Rosuvastatin Calcium (Crestor) 10 mg PO HS [facility] Last Admin: 12/30/18 22:00 Dose: 10 mg Spironolactone (Aldactone) 50 mg PO DAILY [facility] Last Admin: 12/31/18 09:20 Dose: 50 mg - Labs Labs: 12/31/18 06:30 12/31/18 06:30 PT 14.1 SECONDS (9.7-12.2) H 12/26/18 06:07 INR 1.3 12/26/18 06:07 APTT 32 SECONDS (21-34) 12/26/18 06:07 - Constitutional Appears: Confused - Respiratory Exam Respiratory Exam: Clear to Ausculation Bilateral - Cardiovascular Exam Cardiovascular Exam: RRR - GI/Abdominal Exam GI & Abdominal Exam: Soft, Normal Bowel Sounds. absent: Tenderness - Extremities Exam Extremities Exam: absent: Calf Tenderness - Neurological Exam Neurological Exam: Alert, Awake. absent: Oriented x3 Assessment and Plan (1) Cardiac arrest Status: Acute (2) Cardiomyopathy Status: Acute (3) Dysphagia Assessment & Plan: Swallow eval requested. Consider PEG. Status: Acute (4) Thyrotoxicosis Assessment & Plan: h/o Graves Status: Acute
[2018-12-31] MEDS: Pantoprazole 40 mg Susp UD PO SCH (10:04)
[2018-12-31] MEDS: Acetaminophen 650mg/20.3ml solution UD GT PRN ×2 (10:05→23:00)
[2018-12-31 11:59] LABS: ABG ALLEN TEST PO; ARTERIAL BLOOD GAS HCO3 28.5 mmol/L (21-28); ARTERIAL BLOOD GAS HEMOGLOBIN 11.8 g/dL (11.7-17.4); ARTERIAL BLOOD GAS O2 SAT 99.7 % (95-98); ARTERIAL BLOOD GAS PCO2 38 mm/Hg (35-45); ARTERIAL BLOOD GAS PH 7.48 (7.35-7.45); ARTERIAL BLOOD GAS PO2 143 mm/Hg (80-100); ARTERIAL BLOOD GAS TCO2 29.5 mmol/L (22-28)
--- NOTE | 2018-12-31 12:45 | CARD ---
APPROVED REPORT Date of service: 12/30/2018 EXAM: LIMITED Two-dimensional and M-mode echocardiogram with Doppler and color Doppler. Other Information Quality : TDSRhythm : 2D DIMENSIONS IVSd1.6 (0.7-1.1cm)LVDd4.2 (3.9-5.9cm) PWd1.3 (0.7-1.1cm)LVDs3.2 (2.5-4.0cm) FS (%) 23.2 %LVEF (%)55.0 (>50%) LVEF (Wolf's)55 % M-Mode DIMENSIONS TAPSE14.58 cm Aortic Valve AI P 1/2 [id number] Mitral Valve MV E Ijmrehka79.8cm/sMV A Cgpssvwb87.4cm/sE/A ratio0.7 COYW754.18 cm/s TDI Lateral E' Peak V9.71cm/sMedial E' Peak V11.06cm/sE/Lateral E'7.5 E/Medial E'6.6 Tricuspid Valve TR Peak Zlntibfa177vc/sTR Peak Gr.[id number] LEFT VENTRICLE The left ventricle is normal size. There is normal left ventricular wall thickness. The left ventricular function is normal. The left ventricular ejection fraction is within the normal range. No regional wall motion abnormalities noted. LV filling pressure is increased No left ventricle thrombus noted on this study. There is no ventricular septal defect visualized. There is no left ventricular aneurysm. There is no mass noted in the left ventricle. RIGHT VENTRICLE The right ventricle is normal size. There is normal right ventricular wall thickness. The right ventricular systolic function is normal. ATRIA The left atrium size not measured The right atrium size is normal. The interatrial septum is intact with no evidence for an atrial septal defect. AORTIC VALVE The aortic valve is normal in structure and function. There is mild to moderate aortic regurgitation. There is no aortic valvular stenosis. There is no aortic valvular vegetation. MITRAL VALVE The mitral valve is normal in structure and function. There is no evidence of mitral valve prolapse. There is no mitral valve stenosis. There is no mitral valve regurgitation noted. TRICUSPID VALVE The tricuspid valve is normal in structure and function. There is mild to moderate tricuspid regurgitation. Right ventricular systolic pressure is estimated at 50-60 mmHg. There is moderate pulmonary hypertension. There is no tricuspid valve prolapse or vegetation. There is no tricuspid valve stenosis. PULMONIC VALVE The pulmonary valve is normal in structure and function. There is mild pulmonic valvular regurgitation. PA EDP is mildly increased There is no pulmonic valvular stenosis. GREAT VESSELS The aortic root is normal in size. The ascending aorta is normal in size. The pulmonary artery is normal. The IVC is normal in size and collapses >50% with inspiration. PERICARDIAL EFFUSION The pericardium appears normal. There is no pleural effusion. <Conclusion> The left ventricular function is normal. The left ventricular ejection fraction is within the normal range. No regional wall motion abnormalities noted. LV filling pressure is increased There is mild to moderate aortic regurgitation. There is mild to moderate tricuspid regurgitation. Right ventricular systolic pressure is estimated at 50-60 mmHg. There is moderate pulmonary hypertension. There is mild pulmonic valvular regurgitation. PA EDP is mildly increased
--- NOTE | 2018-12-31 13:13 | PN ---
DATE: 12/31/2018 ENDO FOLLOWUP NOTE LOCATION: Room 18, ICU. SUBJECTIVE: This is a 48-year-old female with overt thyrotoxicosis presenting here with marked hyperthyroidism and had improved clinically and metabolically as noted thereof. She has also been extubated following a recent acute cardiopulmonary arrest and is tolerating oxygen delivery by nasal cannula as noted. Her glycemic levels are fluctuating however; and the glucose values overnight have ranged from 207 to 230 mg/dL. Her chemistries showed a BUN of 19, sodium 151, potassium 4.9, chloride 117, CO2 of 31, glucose 199 and creatinine of 0.8. Repeat thyroxine levels are already optimal at 9.94 with TSH of less than 0.02, which will take a few months to normalize accordingly. Her serum cortisone levels remains optimal at 19.7, off the hydrocortisone given IV as previously given. So as this time, we will continue the low dose and modified Tapazole given as 20 mg every 12 hours as ordered. We will obtain serial chemistries and supplement accordingly as needed. We will increase her Amaryl to 4 mg b.i.d. given through the tube feedings as ordered. We will obtain serial chemistries and supplement accordingly as needed. We will follow. Linda Weaver MD
--- NOTE | 2018-12-31 16:01 | MRI ---
Date of service: 12/31/2018 PROCEDURE: MRI BRAIN WITHOUT CONTRAST HISTORY: anoxic brain injury? COMPARISON: Comparison is made to the previous CT of the head dated 12/21/2018 TECHNIQUE: Multiplanar, multisequence MR images of the brain were obtained without intravenous contrast enhancement. FINDINGS: HEMORRHAGE: There is small amount of extra-axial hyperintense T1 and T2 signal noted posterior to the right cerebellar hemisphere suspicious for small subdural hematoma. There is also focal extra-axial subdural hemorrhage noted at the posterior left parietal lobe image 4 series 7. DWI: No evidence of an acute or early subacute infarction. BRAIN PARENCHYMA: No mass effect or edema. Volume loss is noted. VENTRICLES: Mildly dilated without evidence of significant hydrocephalus. CRANIUM: Unremarkable. ORBITS: Grossly unremarkable. PARANASAL SINUSES/MASTOIDS: Clear VASCULAR SYSTEM: Skull base flow voids intact. OTHER FINDINGS: None. IMPRESSION: There is small amount of extra-axial fluid demonstrate hyperintense T1 signal noted in the right posterior fossa and left posterior parietal region suspicious for subdural hematoma. Further evaluation by CT of the head is suggested. No evidence of acute infarction mass effect or midline shift. Mild volume loss.
--- NOTE | 2018-12-31 19:55 | CP.PCM.PN ---
Subjective - Date & Time of Evaluation Date of Evaluation: 12/31/18 - Subjective Subjective: patient examined today no diarrhea, no SOB, no vomiting Objective - Vital Signs/Intake and Output Vital Signs (last 24 hours): Temp Pulse Resp BP Pulse Ox 98 F 119 H 20 144/90 100 12/31/18 18:42 12/31/18 18:42 12/31/18 18:42 12/31/18 18:42 12/31/18 18:42 Intake and Output: 12/31/18 01/01/19 18:59 06:59 Intake Total 1981 Output Total 2903 Balance -922 - Medications Medications: Current Medications Acetaminophen (Tylenol 650mg/20.3ml Solution Ud) 650 mg GT Q6 PRN PRN Reason: Temperature Last Admin: 12/31/18 10:05 Dose: 650 mg Enoxaparin Sodium (Lovenox) 30 mg SC DAILY [facility] Last Admin: 12/31/18 09:15 Dose: 30 mg Glimepiride (Amaryl) 4 mg PO ACBD [facility] Last Admin: 12/31/18 14:50 Dose: 4 mg Insulin Human Regular (Novolin R) 0 unit SC [facility]; Protocol Last Admin: 12/31/18 16:30 Dose: Not Given Methimazole (Tapazole) 20 mg PO Q8H [facility] Last Admin: 12/31/18 18:41 Dose: 20 mg Metoprolol Tartrate (Lopressor) 50 mg PO BID [facility] Last Admin: 12/31/18 18:41 Dose: 50 mg Pantoprazole Sodium (Protonix Susp) 40 mg PO DAILY [facility] Last Admin: 12/31/18 10:04 Dose: 40 mg Rosuvastatin Calcium (Crestor) 10 mg PO HS [facility] Last Admin: 12/30/18 22:00 Dose: 10 mg Spironolactone (Aldactone) 50 mg PO DAILY [facility] Last Admin: 12/31/18 09:20 Dose: 50 mg - Labs Labs: 12/31/18 06:30 12/31/18 06:30 PT 14.1 SECONDS (9.7-12.2) H 12/26/18 06:07 INR 1.3 12/26/18 06:07 APTT 32 SECONDS (21-34) 12/26/18 06:07 - Constitutional Appears: Well - Head Exam Head Exam: ATRAUMATIC, NORMAL INSPECTION, NORMOCEPHALIC - Eye Exam Eye Exam: EOMI, Normal appearance, PERRL Pupil Exam: NORMAL ACCOMODATION, PERRL - ENT Exam ENT Exam: Mucous Membranes Moist, Normal Exam - Neck Exam Neck Exam: Full ROM, Normal Inspection. absent: Lymphadenopathy - Respiratory Exam Respiratory Exam: Decreased Breath Sounds - Cardiovascular Exam Cardiovascular Exam: REGULAR RHYTHM, +S1, +S2 - GI/Abdominal Exam GI & Abdominal Exam: Soft, Diminished Bowel Sounds - Rectal Exam Rectal Exam: Deferred Assessment and Plan - Assessment and Plan (Free Text) Plan: aldactone amaryl crestor lopressor lovenox novolin r protonix susp tapazole tylenol 650mg/20.3ml solution ud medications reviewed labs reviewed vitals also reviewed
--- NOTE | 2018-12-31 22:22 | CP.PCM.PN ---
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 Hypertension control with meds as ordered. Maintain hemodynamics stable. Monitor Input/Outpu supplement lytes as needed endocrine and cardiology following hypernatremia with high sugar and low bp monitor, continue free water Physical Examination: General Appearance: Comfortable, in no acute respiratory distress, ill appearing extubated Vitals reviewed and noted as below Head; Atraumatic, normocephalic ENT: no ulcers no thrush. Tongue is midline. Oropharynx: no rash or ulcers. EYES: Pupils are equal, round and sluggish to light accommodation. Eye muscles and extraocular movement intact. Sclera is anicteric. Neck; supple no lymphadenopathy, gross thyromegaly noted Lungs: Normal respiratory rate/effort. Breath sounds b/l clearer Heart: Increased rate. s1s2 normal. No rub or gallop. Extremities: no edema. No varicose veins Neurological: Patient is awake and able to follow commands Skin: Warm and dry. Normal turgor. Abdomen: Abdomen is soft. Bowel sounds +. There is no abdominal tenderness, no guarding/rigidity no organomegaly Psych: unable MSK: no joint tenderness or swelling. Objective - Vital Signs/Intake and Output Vital Signs (last 24 hours): Temp Pulse Resp BP Pulse Ox 98.2 F 125 H 20 144/90 100 12/31/18 20:00 12/31/18 20:00 12/31/18 20:00 12/31/18 18:42 12/31/18 20:00 Intake and Output: 12/31/18 01/01/19 18:59 06:59 Intake Total 1981 Output Total 2903 Balance -922 - Medications Medications: Current Medications Acetaminophen (Tylenol 650mg/20.3ml Solution Ud) 650 mg GT Q6 PRN PRN Reason: Temperature Last Admin: 12/31/18 10:05 Dose: 650 mg Enoxaparin Sodium (Lovenox) 30 mg SC DAILY [facility] Last Admin: 12/31/18 09:15 Dose: 30 mg Glimepiride (Amaryl) 4 mg PO ACBD [facility] Last Admin: 12/31/18 14:50 Dose: 4 mg Insulin Human Regular (Novolin R) 0 unit SC ACHS [facility]; Protocol Last Admin: 12/31/18 16:30 Dose: Not Given Methimazole (Tapazole) 20 mg PO Q8H [facility] Last Admin: 12/31/18 18:41 Dose: 20 mg Metoprolol Tartrate (Lopressor) 50 mg PO BID [facility] Last Admin: 12/31/18 18:41 Dose: 50 mg Pantoprazole Sodium (Protonix Susp) 40 mg PO DAILY [facility] Last Admin: 12/31/18 10:04 Dose: 40 mg Rosuvastatin Calcium (Crestor) 10 mg PO HS [facility] Last Admin: 12/31/18 21:19 Dose: 10 mg Spironolactone (Aldactone) 50 mg PO DAILY [facility] Last Admin: 12/31/18 09:20 Dose: 50 mg - Labs Labs: 12/31/18 06:30 12/31/18 06:30 PT 14.1 SECONDS (9.7-12.2) H 12/26/18 06:07 INR 1.3 12/26/18 06:07 APTT 32 SECONDS (21-34) 12/26/18 06:07
[2019-01-01 05:54] LABS: BASO # 0.1 K/uL (0.0-0.2); BASO % 0.4 % (0.0-2.0); EOS # 0.3 K/uL (0.0-0.7); EOS % 1.6 % (0.0-4.0); HEMOGLOBIN 13.4 g/dL (11.0-16.0); LYMPH # 3.3 K/uL (1.0-4.3); LYMPH % 17.9 % (20.0-40.0); MEAN CELL VOLUME 87.7 fL (81.0-99.0); MEAN CORPUSCULAR HEMOGLOBIN 28.6 pg (27.0-31.0); MEAN CORPUSCULAR HGB CONC 32.6 g/dL (33.0-37.0); MEAN PLATELET VOLUME 11.2 fL (7.2-11.7); MONO # 1.2 K/uL (0.0-0.8); MONO % 6.6 % (0.0-10.0); NEUT # 13.4 K/uL (1.8-7.0); NEUT % 73.5 % (50.0-75.0); NRBC % 0.2 % (0.0-2.0); RBC 4.68 Mil/uL (3.80-5.20); RED CELL DISTRIBUTION WIDTH 14.7 % (11.5-14.5); WHITE BLOOD COUNT 18.3 K/uL (4.8-10.8)
[2019-01-01 06:30] LABS: ALB/GLOB RATIO 1.2 (1.0-2.1); ALBUMIN 4.1 g/dL (3.5-5.0); ALT/SGPT 42 U/L (9-52); AST/SGOT 47 U/L (14-36); BLOOD UREA NITROGEN 23 mg/dL (7-17); CALCIUM 8.4 mg/dl (8.6-10.4); GFR NON-AFRICAN AMERICAN > 60
[2019-01-01] MEDS: (Novolin R) Insulin Human Regular 100 units/ml vial SC SCH ×4 (08:18→21:28)
[2019-01-01] MEDS: Enoxaparin 30 mg Syringe SC SCH (09:00)
[2019-01-01] MEDS: Pantoprazole 40 mg Susp UD PO SCH (09:00)
--- NOTE | 2019-01-01 10:29 | CP.PCM.PN ---
Subjective - Date & Time of Evaluation Date of Evaluation: 01/01/19 Time of Evaluation: 10:26 - Subjective Subjective: f/u dysphagia. Covering DR Blair.. PArents are present,. No CP, SOB, fever, RB, melena, hemoptsis, hematuria. Pt more awake and ansering questions. Objective - Vital Signs/Intake and Output Vital Signs (last 24 hours): Temp Pulse Resp BP Pulse Ox 98.1 F 127 H 20 154/106 H 100 01/01/19 00:00 01/01/19 04:00 01/01/19 04:00 01/01/19 08:48 01/01/19 04:00 Intake and Output: 01/01/19 01/01/19 06:59 18:59 Intake Total 270 Output Total 3 Balance 267 - Medications Medications: Current Medications Acetaminophen (Tylenol 650mg/20.3ml Solution Ud) 650 mg GT Q6 PRN PRN Reason: Temperature Last Admin: 12/31/18 23:00 Dose: 650 mg Enoxaparin Sodium (Lovenox) 30 mg SC DAILY [facility] Last Admin: 01/01/19 09:00 Dose: 30 mg Glimepiride (Amaryl) 4 mg PO ACBD [facility] Last Admin: 01/01/19 08:30 Dose: 4 mg Insulin Human Regular (Novolin R) 0 unit SC [facility]; Protocol Last Admin: 01/01/19 08:18 Dose: Not Given Methimazole (Tapazole) 20 mg PO Q8H [facility] Last Admin: 01/01/19 08:29 Dose: 20 mg Metoprolol Tartrate (Lopressor) 75 mg PO BID [facility] Last Admin: 01/01/19 09:01 Dose: Not Given Pantoprazole Sodium (Protonix Susp) 40 mg PO DAILY [facility] Last Admin: 01/01/19 09:00 Dose: 40 mg Rosuvastatin Calcium (Crestor) 10 mg PO HS [facility] Last Admin: 12/31/18 21:19 Dose: 10 mg Spironolactone (Aldactone) 50 mg PO DAILY [facility] Last Admin: 01/01/19 09:00 Dose: 50 mg - Labs Labs: 01/01/19 05:44 01/01/19 05:41 PT 14.1 SECONDS (9.7-12.2) H 12/26/18 06:07 INR 1.3 12/26/18 06:07 APTT 32 SECONDS (21-34) 12/26/18 06:07 - Constitutional Appears: Non-toxic - Respiratory Exam Respiratory Exam: Clear to Ausculation Bilateral - Cardiovascular Exam Cardiovascular Exam: RRR - GI/Abdominal Exam GI & Abdominal Exam: Soft, Normal Bowel Sounds. absent: Tenderness - Neurological Exam Neurological Exam: Alert, Awake. absent: Oriented x3 Assessment and Plan (1) Cardiac arrest Status: Acute (2) Cardiomyopathy Status: Acute (3) Dysphagia Assessment & Plan: Seen by speech 12/29. Pt appears more alert today. Would await repeat evaluation by speech. Status: Acute (4) Thyrotoxicosis Status: Acute
--- NOTE | 2019-01-01 15:23 | CP.PCM.PN ---
Subjective - Date & Time of Evaluation Date of Evaluation: 01/01/19 - Subjective Subjective: Patient was examined today at bedside patient denies nausea, vomiting, fever, diarrhea, dizziness, shortness of breath Objective - Vital Signs/Intake and Output Vital Signs (last 24 hours): Temp Pulse Resp BP Pulse Ox 98.8 F 123 H 16 115/84 98 01/01/19 12:00 01/01/19 12:00 01/01/19 12:00 01/01/19 12:00 01/01/19 12:00 Intake and Output: 01/01/19 01/01/19 06:59 18:59 Intake Total 270 90 Output Total 3 300 Balance 267 -210 - Medications Medications: Current Medications Acetaminophen (Tylenol 650mg/20.3ml Solution Ud) 650 mg GT Q6 PRN PRN Reason: Temperature Last Admin: 12/31/18 23:00 Dose: 650 mg Enoxaparin Sodium (Lovenox) 30 mg SC DAILY [facility] Last Admin: 01/01/19 09:00 Dose: 30 mg Glimepiride (Amaryl) 4 mg PO ACBD [facility] Last Admin: 01/01/19 08:30 Dose: 4 mg Insulin Human Regular (Novolin R) 0 unit SC [facility]; Protocol Last Admin: 01/01/19 12:44 Dose: 4 u Methimazole (Tapazole) 20 mg PO Q8H [facility] Last Admin: 01/01/19 08:29 Dose: 20 mg Metoprolol Tartrate (Lopressor) 75 mg PO BID [facility] Last Admin: 01/01/19 09:01 Dose: Not Given Pantoprazole Sodium (Protonix Susp) 40 mg PO DAILY [facility] Last Admin: 01/01/19 09:00 Dose: 40 mg Rosuvastatin Calcium (Crestor) 10 mg PO HS [facility] Last Admin: 12/31/18 21:19 Dose: 10 mg Spironolactone (Aldactone) 50 mg PO DAILY [facility] Last Admin: 01/01/19 09:00 Dose: 50 mg - Labs Labs: 01/01/19 05:44 01/01/19 05:41 PT 14.1 SECONDS (9.7-12.2) H 12/26/18 06:07 INR 1.3 12/26/18 06:07 APTT 32 SECONDS (21-34) 03/25/19 06:07 - Constitutional Appears: Well - Head Exam Head Exam: ATRAUMATIC, NORMAL INSPECTION, NORMOCEPHALIC - Eye Exam Eye Exam: EOMI, Normal appearance, PERRL Pupil Exam: NORMAL ACCOMODATION, PERRL - ENT Exam ENT Exam: Mucous Membranes Moist, Normal Exam - Neck Exam Neck Exam: Full ROM, Normal Inspection. absent: Lymphadenopathy - Respiratory Exam Respiratory Exam: Decreased Breath Sounds - Cardiovascular Exam Cardiovascular Exam: REGULAR RHYTHM, +S1, +S2 - GI/Abdominal Exam GI & Abdominal Exam: Soft, Diminished Bowel Sounds - Rectal Exam Rectal Exam: Deferred - Neurological Exam Neurological Exam: Oriented x3 Assessment and Plan - Assessment and Plan (Free Text) Plan: medications reviewed labs reviewed vitals reviewed aldactone amaryl crestor lopressor lovenox novolin R protonix Susp tapazole tylenol 650mg/20.3ml solution ud
--- NOTE | 2019-01-01 15:33 | CP.PCM.PN ---
Subjective - Date & Time of Evaluation Date of Evaluation: 01/01/19 Time of Evaluation: 09:00 - Subjective Subjective: awake alert afebrile wants to eat WBC trending up Objective - Vital Signs/Intake and Output Vital Signs (last 24 hours): Temp Pulse Resp BP Pulse Ox 98.8 F 123 H 16 115/84 98 01/01/19 12:00 01/01/19 12:00 01/01/19 12:00 01/01/19 12:00 01/01/19 12:00 Intake and Output: 01/01/19 01/01/19 06:59 18:59 Intake Total 270 90 Output Total 3 300 Balance 267 -210 - Medications Medications: Current Medications Acetaminophen (Tylenol 650mg/20.3ml Solution Ud) 650 mg GT Q6 PRN PRN Reason: Temperature Last Admin: 12/31/18 23:00 Dose: 650 mg Enoxaparin Sodium (Lovenox) 30 mg SC DAILY [facility] Last Admin: 01/01/19 09:00 Dose: 30 mg Glimepiride (Amaryl) 4 mg PO ACBD [facility] Last Admin: 01/01/19 08:30 Dose: 4 mg Insulin Human Regular (Novolin R) 0 unit SC [facility]; Protocol Last Admin: 01/01/19 12:44 Dose: 4 u Methimazole (Tapazole) 20 mg PO Q8H [facility] Last Admin: 01/01/19 08:29 Dose: 20 mg Metoprolol Tartrate (Lopressor) 75 mg PO BID [facility] Last Admin: 01/01/19 09:01 Dose: Not Given Pantoprazole Sodium (Protonix Susp) 40 mg PO DAILY [facility] Last Admin: 01/01/19 09:00 Dose: 40 mg Rosuvastatin Calcium (Crestor) 10 mg PO HS [facility] Last Admin: 12/31/18 21:19 Dose: 10 mg Spironolactone (Aldactone) 50 mg PO DAILY [facility] Last Admin: 01/01/19 09:00 Dose: 50 mg - Labs Labs: 01/01/19 05:44 01/01/19 05:41 PT 14.1 SECONDS (9.7-12.2) H 12/26/18 06:07 INR 1.3 12/26/18 06:07 APTT 32 SECONDS (21-34) 12/26/18 06:07 - Constitutional Appears: Non-toxic, No Acute Distress, Chronically Ill - Head Exam Head Exam: NORMOCEPHALIC - Eye Exam Eye Exam: absent: Scleral icterus - ENT Exam ENT Exam: Mucous Membranes Dry - Neck Exam Neck Exam: absent: Lymphadenopathy - Respiratory Exam Respiratory Exam: Decreased Breath Sounds - Cardiovascular Exam Cardiovascular Exam: REGULAR RHYTHM - GI/Abdominal Exam GI & Abdominal Exam: Distended - Rectal Exam Rectal Exam: Deferred - Exam Exam: NORMAL INSPECTION - Extremities Exam Extremities Exam: Pedal Edema - Back Exam Back Exam: absent: CVA tenderness (L), CVA tenderness (R) - Neurological Exam Neurological Exam: Alert, Awake, CN II-XII Intact, Oriented x3 Neuro motor strength exam: Left Upper Extremity: 3, Right Upper Extremity: 3, Left Lower Extremity: 3, Right Lower Extremity: 3 - Psychiatric Exam Psychiatric exam: Depressed Assessment and Plan (1) Fever Status: Acute (2) TANVI (acute kidney injury) Status: Acute (3) Cardiac arrest Status: Acute (4) Cardiomyopathy Status: Acute (5) Thyrotoxicosis Status: Acute - Assessment and Plan (Free Text) Assessment: reculture prn repeat CXR in am
--- NOTE | 2019-01-01 16:05 | RAD ---
Date of service: 01/01/2019 HISTORY: r/o pneumonia COMPARISON: Comparison is made with 12/28/2018 TECHNIQUE: 1 view obtained. FINDINGS: LUNGS: No evidence of new infiltrate or consolidation in the lungs. PLEURA: No significant pleural effusion identified, no pneumothorax apparent. CARDIOVASCULAR: No aortic atherosclerotic calcification present. Normal cardiac size. No pulmonary vascular congestion. OSSEOUS STRUCTURES: No significant abnormalities. VISUALIZED UPPER ABDOMEN: NG tube seen extending to the abdomen OTHER FINDINGS: None. IMPRESSION: No significant interval changes
--- NOTE | 2019-01-01 18:51 | PN ---
DATE: 01/01/2019 ENDOCRINOLOGY FOLLOWUP NOTE LOCATION: In ICU, room 18. SUBJECTIVE: This is a 48-year-old female with recent overt thyrotoxicosis, presenting here with marked hyperthyroidism noted both historically, clinically and biochemically with supervening cardiorespiratory arrest and has since then been extubated and is now improving clinically and hemodynamically as noted thereof. Her glycemic levels are fluctuating, but improved as noted overnight with the initiation of oral hypoglycemic therapy as given. Her thyroid medications have been tapered down because of the remarkable response to antithyroid medications as given. Her IV steroids have been discontinued at this time and her serum cortisol has remained at 19.7 mcg/dL. Her latest thyroxine level is also remarkably down to 9.94 mcg/dL with a TSH of less than 0.02. The TSH suppression can remain for over six months or so until the patient is actually really biochemically and clinically euthyroid for many months. LABORATORY DATA: Her chemistry showed a BUN of 23, sodium 149, potassium 3.7, chloride 112, CO2 of 31, glucose 161 and creatinine 0.8. Her overnight glucose levels have ranged from 143 to 152 mg/dL. Her repeat swallow evaluation is pending at this time as still ongoing tube feedings as given. PLAN OF MANAGEMENT: So at this time, we will continue the Tapazole modified to 20 mg as given although this may already be a little beyond the recommended pharmacotherapy because of the remarkable response from the initial levels of over 22 mcg/dL. However, with the persistent tachycardia, the ICU team has opted to titrate her dose higher accordingly. However, she continues to have persistent leukocytosis with a WBC of 18.3 as noted. We will obtain serial thyroxine and TSH values and titrate and adjust her dose regimen accordingly. We will hold off the radioactive iodine ablation therapy as was being recommended by the ICU team because of the requirements of nuclear medicine thereof in terms of actual radioactive iodine ablation. She needs a thyroid scan update examination test, which cannot be done unless she has been taken off the Tapazole therapy for a week to two weeks accordingly. Because of her unstable hemodynamic and clinical condition at this time, we will actually defer the radioactive iodine ablation for outpatient followup therapy. We will continue also the Amaryl given as 4 mg b.i.d. as ordered. We will follow. Linda Weaver MD [facility] # [id number]
[2019-01-02 06:22] LABS: BASO # 0.1 K/uL (0.0-0.2); BASO % 0.4 % (0.0-2.0); EOS # 0.3 K/uL (0.0-0.7); EOS % 1.3 % (0.0-4.0); HEMOGLOBIN 13.3 g/dL (11.0-16.0); LYMPH # 3.5 K/uL (1.0-4.3); LYMPH % 18.2 % (20.0-40.0); MEAN CELL VOLUME 88.1 fL (81.0-99.0); MEAN CORPUSCULAR HEMOGLOBIN 28.5 pg (27.0-31.0); MEAN CORPUSCULAR HGB CONC 32.4 g/dL (33.0-37.0); MEAN PLATELET VOLUME 11.6 fL (7.2-11.7); MONO # 1.4 K/uL (0.0-0.8); MONO % 7.2 % (0.0-10.0); NEUT % 72.9 % (50.0-75.0); RBC 4.68 Mil/uL (3.80-5.20); RED CELL DISTRIBUTION WIDTH 14.4 % (11.5-14.5); WHITE BLOOD COUNT 19.2 K/uL (4.8-10.8)
[2019-01-02 06:39] LABS: ALB/GLOB RATIO 0.9 (1.0-2.1); ALBUMIN 3.5 g/dL (3.5-5.0); ALT/SGPT 31 U/L (9-52); AST/SGOT 39 U/L (14-36); BLOOD UREA NITROGEN 28 mg/dL (7-17); CALCIUM 8.5 mg/dl (8.6-10.4); GFR NON-AFRICAN AMERICAN > 60
--- NOTE | 2019-01-02 08:04 | CP.PCM.PN ---
Subjective - Date & Time of Evaluation Date of Evaluation: 01/02/19 Time of Evaluation: 07:30 - Subjective Subjective: [id number] Endocrinology Progress note for Dr. Weaver Patient seen and examined at bedside in the ICU. No acute events overnight. Patient denies any abd pain, nausea, vomiting, diarrhea or constipation. She states that her dizziness is better with food. 12 point ROS negative except as stated above. Objective - Vital Signs/Intake and Output Vital Signs (last 24 hours): Temp Pulse Resp BP Pulse Ox 98.4 F 116 H 19 140/99 H 100 01/02/19 04:00 01/02/19 04:00 01/02/19 04:00 01/02/19 04:00 01/02/19 04:00 Intake and Output: 01/02/19 01/02/19 06:59 18:59 Intake Total 100 Output Total 601 Balance -501 - Medications Medications: Current Medications Acetaminophen (Tylenol 650mg/20.3ml Solution Ud) 650 mg GT Q6 PRN PRN Reason: Temperature Last Admin: 12/31/18 23:00 Dose: 650 mg Enoxaparin Sodium (Lovenox) 30 mg SC DAILY [facility] Last Admin: 01/01/19 09:00 Dose: 30 mg Glimepiride (Amaryl) 4 mg PO ACBD [facility] Last Admin: 01/01/19 16:49 Dose: 4 mg Insulin Human Regular (Novolin R) 0 unit SC [facility]; Protocol Last Admin: 01/01/19 21:28 Dose: Not Given Methimazole (Tapazole) 20 mg PO Q8H [facility] Last Admin: 01/02/19 01:26 Dose: 20 mg Metoprolol Tartrate (Lopressor) 75 mg PO BID [facility] Last Admin: 01/01/19 16:59 Dose: 75 mg Pantoprazole Sodium (Protonix Susp) 40 mg PO DAILY [facility] Last Admin: 01/01/19 09:00 Dose: 40 mg Rosuvastatin Calcium (Crestor) 10 mg PO HS [facility] Last Admin: 01/01/19 21:28 Dose: 10 mg Spironolactone (Aldactone) 50 mg PO DAILY [facility] Last Admin: 01/01/19 09:00 Dose: 50 mg - Labs Labs: 01/02/19 06:13 01/02/19 06:12 PT 14.1 SECONDS (9.7-12.2) H 03/25/19 06:07 INR 1.3 12/26/18 06:07 APTT 32 SECONDS (21-34) 12/26/18 06:07 - Additional Findings Additional findings: - Constitutional Appears: Non-toxic, No Acute Distress - Head Exam Head Exam: ATRAUMATIC, NORMOCEPHALIC - Eye Exam Eye Exam: PERRL. absent: Nystagmus Additional comments: tracking and blinking - ENT Exam ENT Exam: Mucous Membranes Dry - Respiratory Exam Respiratory Exam: Clear to Ausculation Bilateral, NORMAL BREATHING PATTERN Additional comments: NC in place - Cardiovascular Exam Cardiovascular Exam: Tachycardia, +S1, +S2 - GI/Abdominal Exam GI & Abdominal Exam: Soft, Normal Bowel Sounds. absent: Guarding, Rigid - Extremities Exam Extremities Exam: Normal Capillary Refill Additional comments: b/l pressure off loading boots in place - Neurological Exam Neurological Exam: Awake, Alert Additional comments: moves all 4 extremities voluntarily - Psychiatric Exam Psychiatric exam: Flat Affect - Skin Skin Exam: Dry, Intact, Normal Color, Warm Assessment and Plan - Assessment and Plan (Free Text) Assessment: 48 yo female with PMH of HTN, Hyperthyroidism, TIA, anxiety, asthma and Grave's dx presented to the hospital with complaints of severe abdominal pain, nausea, and vomiting. Patient had cardiac arrest x 3 and ROSC was achieved. Admitted to MICU for further management. Endocrinology consulted for possible thyroid storm. Plan: Blood work, imaging, and chart reviewed. On 12/29 patient's T4 12.4 TSH < 0.02, and AM Cortisol 36.4. Patient is currently on Tapazole to 20q8. Will continue to titrate up based on labs results. Will continue to monitor blood work. Continue to correct electrolyte abnl. Continue management as per primary and MICU team. Patient will need close endocrine follow up as outpatient; patient is a candidate for radioactive ablation therapy of thyroid but this will be need to be done outpatient and Tapazole will need to be held for 7-10 days prior to diagnostic radiouptake scan and prior to radioablation procedure. Case reviewed and discussed with Dr. Weaver
[2019-01-02] MEDS: (Novolin R) Insulin Human Regular 100 units/ml vial SC SCH ×4 (08:47→21:51)
[2019-01-02] MEDS: Pantoprazole 40 mg Susp UD PO SCH (10:00)
--- NOTE | 2019-01-02 12:02 | CP.PCM.PN ---
Subjective - Date & Time of Evaluation Date of Evaluation: 01/02/19 Time of Evaluation: 09:00 - Subjective Subjective: OOB to chair NAD events noted +SDH Objective - Vital Signs/Intake and Output Vital Signs (last 24 hours): Temp Pulse Resp BP Pulse Ox 98.7 F 136 H 20 121/100 H 98 01/02/19 08:00 01/02/19 08:00 01/02/19 08:00 01/02/19 08:00 01/02/19 08:00 Intake and Output: 01/02/19 01/02/19 06:59 18:59 Intake Total 100 Output Total 601 Balance -501 - Medications Medications: Current Medications Acetaminophen (Tylenol 650mg/20.3ml Solution Ud) 650 mg GT Q6 PRN PRN Reason: Temperature Last Admin: 12/31/18 23:00 Dose: 650 mg Enoxaparin Sodium (Lovenox) 30 mg SC DAILY [facility] Last Admin: 01/01/19 09:00 Dose: 30 mg Glimepiride (Amaryl) 4 mg PO ACBD [facility] Last Admin: 01/02/19 08:41 Dose: 4 mg Insulin Human Regular (Novolin R) 0 unit SC [facility]; Protocol Last Admin: 01/02/19 11:48 Dose: 5 u Methimazole (Tapazole) 20 mg PO Q8H [facility] Last Admin: 01/02/19 08:41 Dose: 20 mg Pantoprazole Sodium (Protonix Susp) 40 mg PO DAILY [facility] Last Admin: 01/01/19 09:00 Dose: 40 mg Propranolol HCl (Inderal) 30 mg PO Q8H [facility] Rosuvastatin Calcium (Crestor) 10 mg PO HS [facility] Last Admin: 01/01/19 21:28 Dose: 10 mg Spironolactone (Aldactone) 50 mg PO DAILY [facility] Last Admin: 01/01/19 09:00 Dose: 50 mg - Labs Labs: 01/02/19 06:13 01/02/19 06:12 PT 14.1 SECONDS (9.7-12.2) H 12/26/18 06:07 INR 1.3 12/26/18 06:07 APTT 32 SECONDS (21-34) 12/26/18 06:07 - Constitutional Appears: Non-toxic, Chronically Ill - Head Exam Head Exam: NORMOCEPHALIC - ENT Exam ENT Exam: Mucous Membranes Dry - Neck Exam Neck Exam: absent: Lymphadenopathy - Respiratory Exam Respiratory Exam: Decreased Breath Sounds - Cardiovascular Exam Cardiovascular Exam: REGULAR RHYTHM - GI/Abdominal Exam GI & Abdominal Exam: Distended, Soft Assessment and Plan (1) Fever Status: Acute (2) TANVI (acute kidney injury) Status: Acute (3) Cardiac arrest Status: Acute (4) Cardiomyopathy Status: Acute (5) Thyrotoxicosis Status: Acute - Assessment and Plan (Free Text) Assessment: leukocytosiis SDH will reculture hold IV antibiotics for now
--- NOTE | 2019-01-02 12:02 | CP.PCM.PN ---
Subjective - Date & Time of Evaluation Date of Evaluation: 01/02/19 Time of Evaluation: 12:00 - Subjective Subjective: Nephrology Consultation Note: Assessment: stable Non-oliguric Acute Kidney Injury (N17.9) likely due to renal hypoperfusion due to cardiac arrest/hypotension leading to ATN, had exposure to IV contrast in addition: IMPROVED uncontrolled severe HTN, with shock hypokalemia, hyperkalemia, HAGMA/lactic acidosis hypernatremia hypertension (years) obesity hyperthyroidism thyroid storm, cardiac arrest s/p resuscitation BiV failure with LVEF 15%, sepsis Plan No acute need for renal replacement therapy at this time. Hypertension control with meds as ordered. Maintain hemodynamics stable. Avoid hypotension. continue with RAAS maggy. continue with rate control meds as beta blockers Monitor Input/Output, daily weights and renal function with basic metabolic panel supplement lytes as needed endocrine and cardiology following free water intake continue Dose meds/antibiotics for improved GFR. Glycemic control Further work up/management as per primary team Thanks for allowing me to participate in care of your patient. Will follow patient with you. Please call if any Qs. had d/w team Dr Darshan Call Office: [phone] Chief Complaint; unable Reason for consult: Acute Kidney Injury HPI: Pt is a 48 F with hx of hypertension (years) obesity hyperthyroidism presented with complaints of pain abdomen and found to have thyroid storm, cardiac arrest s/p resuscitation, foudn to have BiV failure with LVEF 15%, sepsis and also with TANVI hence renal consulted no known OTC/herbal meds or NSAIDs Noted recent iodinated contrast exposure as CTA. Noted obvious episodes of low BP. ROS: pt feels better. able to eat. denies Cp/SOB Physical Examination: General Appearance: Comfortable, in no acute respiratory distress, better appearing Vitals reviewed and noted as below Head; Atraumatic, normocephalic ENT: no ulcers no thrush. Tongue is midline. Oropharynx: no rash or ulcers. EYES: Pupils are equal, round and sluggish to light accommodation. Eye muscles and extraocular movement intact. Sclera is anicteric. Neck; supple no lymphadenopathy, gross thyromegaly noted Lungs: Normal respiratory rate/effort. Breath sounds b/l reduced at bases with few crackle Heart: Increased rate. s1s2 normal. No rub or gallop. Extremities: no edema. No varicose veins Neurological: Patient is awake alert and follow commands. communicative Skin: Warm and dry. Normal turgor. No rash. Palpitation: Normal elasticity for age Abdomen: Abdomen is soft. Bowel sounds +. There is no abdominal tenderness, no guarding/rigidity no organomegaly Psych: limited insight. normal affect MSK: no joint tenderness or swelling. Digits and nails normal, no deformity : kidney or bladder not palpable Labs/imaging reviewed. Past medical history, past surgical history, family history, social history, allergy reviewed and noted as below Family hx: no hx of CKD. Rest non-contributory Objective - Vital Signs/Intake and Output Vital Signs (last 24 hours): Temp Pulse Resp BP Pulse Ox 98.7 F 136 H 20 121/100 H 98 01/02/19 08:00 01/02/19 08:00 01/02/19 08:00 01/02/19 08:00 01/02/19 08:00 Intake and Output: 01/02/19 01/02/19 06:59 18:59 Intake Total 100 Output Total 601 Balance -501 - Medications Medications: Current Medications Acetaminophen (Tylenol 650mg/20.3ml Solution Ud) 650 mg GT Q6 PRN PRN Reason: Temperature Last Admin: 12/31/18 23:00 Dose: 650 mg Enoxaparin Sodium (Lovenox) 30 mg SC DAILY [facility] Last Admin: 01/01/19 09:00 Dose: 30 mg Glimepiride (Amaryl) 4 mg PO ACBD [facility] Last Admin: 01/02/19 08:41 Dose: 4 mg Insulin Human Regular (Novolin R) 0 unit SC [facility]; Protocol Last Admin: 01/02/19 11:48 Dose: 5 u Methimazole (Tapazole) 20 mg PO Q8H [facility] Last Admin: 01/02/19 08:41 Dose: 20 mg Pantoprazole Sodium (Protonix Susp) 40 mg PO DAILY [facility] Last Admin: 01/01/19 09:00 Dose: 40 mg Propranolol HCl (Inderal) 30 mg PO Q8H [facility] Rosuvastatin Calcium (Crestor) 10 mg PO HS [facility] Last Admin: 01/01/19 21:28 Dose: 10 mg Spironolactone (Aldactone) 50 mg PO DAILY [facility] Last Admin: 01/01/19 09:00 Dose: 50 mg - Labs Labs: 01/02/19 06:13 01/02/19 06:12 PT 14.1 SECONDS (9.7-12.2) H 12/26/18 06:07 INR 1.3 12/26/18 06:07 APTT 32 SECONDS (21-34) 12/26/18 06:07
[2019-01-02] MEDS: Magnesium Sulfate 1 gm in D5W 1 GM/100 ML BAG IVPB SCH ×2 (13:04→13:39)
--- NOTE | 2019-01-02 15:19 | CP.PCM.PN ---
Subjective - Date & Time of Evaluation Date of Evaluation: 01/02/19 Time of Evaluation: 15:18 - Subjective Subjective: Neuro Follow-Up Note: Mrs. Barnhart was evaluated this afternoon in the ICU upon returning from CT department. Pt states that she feels better today. Offers no complaints aside from feeling "weak from not being out of bed." Denies h/a, dizziness, visual changes, chest pain, palpitations, sob, abd pain, n/v/d, fever/chills. Objective - Vital Signs/Intake and Output Vital Signs (last 24 hours): Temp Pulse Resp BP Pulse Ox 97.6 F 115 H 20 145/99 H 100 01/02/19 12:00 01/02/19 12:00 01/02/19 12:00 01/02/19 12:00 01/02/19 12:00 Intake and Output: 01/02/19 01/02/19 06:59 18:59 Intake Total 100 Output Total 601 Balance -501 - Medications Medications: Current Medications Acetaminophen (Tylenol 650mg/20.3ml Solution Ud) 650 mg GT Q6 PRN PRN Reason: Temperature Last Admin: 12/31/18 23:00 Dose: 650 mg Enoxaparin Sodium (Lovenox) 30 mg SC DAILY [facility] Last Admin: 01/01/19 09:00 Dose: 30 mg Glimepiride (Amaryl) 4 mg PO ACBD [facility] Last Admin: 01/02/19 08:41 Dose: 4 mg Insulin Human Regular (Novolin R) 0 unit SC [facility]; Protocol Last Admin: 01/02/19 11:48 Dose: 5 u Methimazole (Tapazole) 20 mg PO Q8H [facility] Last Admin: 01/02/19 08:41 Dose: 20 mg Pantoprazole Sodium (Protonix Susp) 40 mg PO DAILY [facility] Last Admin: 01/02/19 10:00 Dose: 40 mg Propranolol HCl (Inderal) 30 mg PO Q8H [facility] Last Admin: 01/02/19 11:00 Dose: 30 mg Rosuvastatin Calcium (Crestor) 10 mg PO HS [facility] Last Admin: 01/01/19 21:28 Dose: 10 mg Spironolactone (Aldactone) 50 mg PO DAILY [facility] Last Admin: 01/02/19 13:45 Dose: 50 mg - Labs Labs: 01/02/19 06:13 04/01/19 06:12 PT 14.1 SECONDS (9.7-12.2) H 12/26/18 06:07 INR 1.3 12/26/18 06:07 APTT 32 SECONDS (21-34) 12/26/18 06:07 - Constitutional Appears: Non-toxic, No Acute Distress - Head Exam Head Exam: ATRAUMATIC, NORMAL INSPECTION, NORMOCEPHALIC - Eye Exam Eye Exam: EOMI Pupil Exam: NORMAL ACCOMODATION, PERRL Additional comments: exophthalmos b/l - ENT Exam ENT Exam: Mucous Membranes Moist - Neck Exam Neck Exam: Full ROM, Normal Inspection - Respiratory Exam Respiratory Exam: NORMAL BREATHING PATTERN - Cardiovascular Exam Cardiovascular Exam: Tachycardia - Extremities Exam Additional comments: able to move all extremities with generalized weakness 2/2 deconditioning. - Neurological Exam Neurological Exam: Alert, Awake, CN II-XII Intact Neuro motor strength exam: Left Upper Extremity: 4, Right Upper Extremity: 4, Left Lower Extremity: 3, Right Lower Extremity: 3 Additional comments: speech clear, fluid able to move all extremities w generalized weakness present no sensory deficits no tremors or abnormal movements - Psychiatric Exam Psychiatric exam: Normal Affect, Normal Mood - Skin Skin Exam: Normal Color Assessment and Plan (1) Anoxic brain injury Assessment & Plan: Imaging reviewed: -MRI Brain (12/31/18): There is small amount of extra-axial fluid demonstrate hyperintense T1 signal noted in the right posterior fossa and left posterior parietal region suspicious for subdural hematoma. Further evaluation by CT of the head is suggested. No evidence of acute infarction mass effect or midline shift. Mild volume loss. -Repeat CT Head without contrast ordered to evaluate for poss SDH noted on MRI Brain over the weekend. -Continue current treatment. -Pt is neurologically stable and improving considering events during this admission. -Continue PT/OT -Notify neuro of any acute changes. Kathleen Plata, SAMMY, POWERHOUSE HELPER D/W Dr. Babb - Status: Acute
--- NOTE | 2019-01-02 16:17 | CT ---
Date of service: 01/02/2019 PROCEDURE: CT HEAD WITHOUT CONTRAST. HISTORY: re-eval poss SDH noted on Brain MRI COMPARISON: MRI brain without contrast from 12/31/2018 TECHNIQUE: Axial computed tomography images were obtained through the head/brain without intravenous contrast. Radiation dose: Total exam DLP = 1039.15 mGy-cm. This CT exam was performed using one or more of the following dose reduction techniques: Automated exposure control, adjustment of the mA and/or kV according to patient size, and/or use of iterative reconstruction technique. FINDINGS: HEMORRHAGE: There is small layering subdural hematoma along the right tentorium cerebelli. No definite evidence for left parietal convexity subdural hematoma. BRAIN: Floyd-white matter differentiation is preserved. There is no mass, mass effect or abnormal extra-axial fluid collection. There is no territorial infarction. The midline sagittal structures are normal. VENTRICLES: The ventricles are normal in size, shape and configuration. CALVARIUM: There is no calvarial fracture or extracranial soft tissue swelling. PARANASAL SINUSES: Predominantly clear. MASTOID AIR CELLS: Predominantly clear. OTHER FINDINGS: None. IMPRESSION: 1. Small layering subdural hematoma along the right tentorium cerebelli. 2. No CT evidence for left parietal convexity subdural hematoma.
[2019-01-02 17:38] LABS: SQUAMOUS EPITHIAL < 1 /hpf (0-5); URINE BILIRUBIN NEGATIVE (NEGATIVE); URINE BLOOD NEGATIVE (NEGATIVE); URINE CLARITY Clear (Clear); URINE COLOR Yellow (YELLOW); URINE GLUCOSE (UA) 3+ mg/dL (Normal); URINE LEUKOCYTE ESTERASE NEG Leu/uL (Negative); URINE PROTEIN NEGATIVE (NEGATIVE); URINE UROBILINOGEN NORMAL mg/dL (0.2-1.0)
--- NOTE | 2019-01-02 18:23 | CP.PCM.PN ---
Subjective - Date & Time of Evaluation Date of Evaluation: 01/02/19 Time of Evaluation: 19:05 - Subjective Subjective: soeaking completely ng tube removed wants to go home again father bedside stable little tachyc ardic no nauea or vomitting feels better Objective - Vital Signs/Intake and Output Vital Signs (last 24 hours): Temp Pulse Resp BP Pulse Ox 98.0 F 110 H 23 137/90 100 01/02/19 16:00 01/02/19 16:00 01/02/19 16:00 01/02/19 16:00 01/02/19 16:00 Intake and Output: 01/02/19 01/02/19 06:59 18:59 Intake Total 100 200 Output Total 601 Balance -501 200 - Medications Medications: Current Medications Acetaminophen (Tylenol 650mg/20.3ml Solution Ud) 650 mg GT Q6 PRN PRN Reason: Temperature Last Admin: 12/31/18 23:00 Dose: 650 mg Enoxaparin Sodium (Lovenox) 30 mg SC DAILY [facility] Last Admin: 01/01/19 09:00 Dose: 30 mg Glimepiride (Amaryl) 4 mg PO ACBD [facility] Last Admin: 01/02/19 16:25 Dose: 4 mg Insulin Human Regular (Novolin R) 0 unit SC [facility]; Protocol Last Admin: 01/02/19 16:17 Dose: Not Given Methimazole (Tapazole) 20 mg PO Q8H [facility] Last Admin: 01/02/19 16:25 Dose: 20 mg Pantoprazole Sodium (Protonix Susp) 40 mg PO DAILY [facility] Last Admin: 01/02/19 10:00 Dose: 40 mg Propranolol HCl (Inderal) 30 mg PO Q8H [facility] Last Admin: 01/02/19 18:04 Dose: 30 mg Rosuvastatin Calcium (Crestor) 10 mg PO HS [facility] Last Admin: 01/01/19 21:28 Dose: 10 mg Spironolactone (Aldactone) 50 mg PO DAILY [facility] Last Admin: 01/02/19 13:45 Dose: 50 mg - Labs Labs: 01/02/19 06:13 01/02/19 06:12 PT 14.1 SECONDS (9.7-12.2) H 12/26/18 06:07 INR 1.3 12/26/18 06:07 APTT 32 SECONDS (21-34) 12/26/18 06:07 - Constitutional Appears: Well - Head Exam Head Exam: ATRAUMATIC, NORMAL INSPECTION, NORMOCEPHALIC - Eye Exam Eye Exam: EOMI, Normal appearance, PERRL Pupil Exam: NORMAL ACCOMODATION, PERRL - ENT Exam ENT Exam: Mucous Membranes Moist, Normal Exam - Neck Exam Neck Exam: Full ROM, Normal Inspection. absent: Lymphadenopathy - Respiratory Exam Respiratory Exam: Decreased Breath Sounds - Cardiovascular Exam Cardiovascular Exam: REGULAR RHYTHM, +S1, +S2 - GI/Abdominal Exam GI & Abdominal Exam: Soft, Diminished Bowel Sounds - Rectal Exam Rectal Exam: Deferred Assessment and Plan - Assessment and Plan (Free Text) Plan: Aldactone Amaryl Crestor Inderal Lovenox Novolin R Protonix is meds Tapazole dose decreased already before Tylenol 650 mg / 20.3 mL solution ud advance po diet may trnafer her out of icu as per icu med reivwed labs reivwed vitals reviewed encourage po feeding d/w father thru morning caregiver
--- NOTE | 2019-01-03 00:43 | PN ---
DATE: 01/02/2019 ENDOCRINOLOGY FOLLOWUP NOTE LOCATION: ICU room 18. This is a 48-year-old female with overt thyrotoxicosis, presenting here with marked hyperthyroidism noted both historically, clinically and biochemically and has since then improved remarkably with medical therapy as given. She remains clinically euthyroid at this time. Her glycemic levels are fluctuating but improved, and the glucose values have ranged from 143 to 208 mg/dL. Her chemistry showed a BUN of 28, sodium 148, potassium 3.5, chloride 109, CO2 of 29, glucose 132, and creatinine 0.8. Her repeat thyroxine level shows a T4 of 12.8 with a free T4 of 2.01 and a TSH of less than 0.02. So at this time, we will continue to modify medical therapy with Tapazole given as 20 mg every 8 hours as given. We will continue the beta-adrenergic blockade as ordered and given. We will obtain serial thyroid studies and adjust her dose regimen accordingly. We will also hold off radioactive iodine ablation therapy and will be deferred for outpatient thyroid management as this entails the discontinuation of her Tapazole therapy which we cannot at this point in time undertake. We will obtain serial chemistries and supplement accordingly as needed. We will follow. Linda Weaver MD
--- NOTE | 2019-01-03 01:44 | CP.PCM.PN ---
Subjective - Date & Time of Evaluation Date of Evaluation: 01/02/19 Time of Evaluation: 10:00 - Subjective Subjective: Extubated More alert and awake: sitting in chair Remains sinus tach Objective - Vital Signs/Intake and Output Vital Signs (last 24 hours): Temp Pulse Resp BP Pulse Ox 98.4 F 106 H 23 137/90 100 01/02/19 20:00 01/02/19 20:00 01/02/19 16:00 01/02/19 16:00 01/02/19 20:00 Intake and Output: 01/02/19 01/03/19 18:59 06:59 Intake Total 900 Output Total 401 Balance 499 - Medications Medications: Current Medications Acetaminophen (Tylenol 650mg/20.3ml Solution Ud) 650 mg GT Q6 PRN PRN Reason: Temperature Last Admin: 12/31/18 23:00 Dose: 650 mg Enoxaparin Sodium (Lovenox) 30 mg SC DAILY [facility] Last Admin: 01/01/19 09:00 Dose: 30 mg Glimepiride (Amaryl) 4 mg PO ACBD [facility] Last Admin: 01/02/19 16:25 Dose: 4 mg Insulin Human Regular (Novolin R) 0 unit SC [facility]; Protocol Last Admin: 01/02/19 21:51 Dose: Not Given Methimazole (Tapazole) 20 mg PO Q8H [facility] Last Admin: 01/03/19 00:49 Dose: 20 mg Pantoprazole Sodium (Protonix Susp) 40 mg PO DAILY [facility] Last Admin: 01/02/19 10:00 Dose: 40 mg Propranolol HCl (Inderal) 30 mg PO Q8H [facility] Last Admin: 01/02/19 18:04 Dose: 30 mg Rosuvastatin Calcium (Crestor) 10 mg PO HS [facility] Last Admin: 01/02/19 22:21 Dose: 10 mg Spironolactone (Aldactone) 50 mg PO DAILY [facility] Last Admin: 01/02/19 13:45 Dose: 50 mg - Labs Labs: 01/02/19 06:13 01/02/19 06:12 PT 14.1 SECONDS (9.7-12.2) H 12/26/18 06:07 INR 1.3 12/26/18 06:07 APTT 32 SECONDS (21-34) 12/26/18 06:07 - Constitutional Appears: No Acute Distress - Head Exam Head Exam: ATRAUMATIC, NORMAL INSPECTION, NORMOCEPHALIC - Eye Exam Eye Exam: Normal appearance. absent: Scleral icterus - ENT Exam ENT Exam: Mucous Membranes Moist, Normal Exam - Neck Exam Neck Exam: Full ROM, Normal Inspection, Thyromegaly - Respiratory Exam Respiratory Exam: Clear to Ausculation Bilateral. absent: Rhonchi, Wheezes - Cardiovascular Exam Cardiovascular Exam: Tachycardia, +S1, +S2. absent: Murmur - GI/Abdominal Exam GI & Abdominal Exam: Soft. absent: Tenderness - Extremities Exam Extremities Exam: Normal Inspection. absent: Calf Tenderness, Pedal Edema - Neurological Exam Neurological Exam: Alert, Awake Assessment and Plan - Assessment and Plan (Free Text) Assessment: Non compliant 48 y/o presented with Thyroid storm and Severe metabolic acidosis with TANVI probably ATN/Shock liver, Hyperkalemia: Acute respiratory failure due to above: requiring intubation Toxic/metobolic encepholopathy Likely metabolic/hypoxemic cardiac arrest manifested as profound bradycardia: requiring CPR to gain ROSC Initial ECHO: directly viewed by me: mod-severe LV dysfunction global hypokinesia LVH RVE and moderate RV dysfunction Mild-mod inc in PASP dilated IVC and reduced compliance c/w inc JVP Mod TR, Mild MR, trace AI Grade 1 diastolic dysfunction PLAN: 48 year old female with respirtory failure now extubated more awake REPEAT ECHO SUGGESTS IMPROVEMENT OF LV FUNCTION TO NEAR NORMAL RANGE WITH IMPROVEMENT IN RV FUNCTION AND SIZE, MILD-MOD PULM HTN NOTED now HTN TANVI IMPROVED: monitor lytes Hyperthyroid on tapazole PLAN INC PROPRANALOL TO 30 Q8 AND TITRATE CONT ALDACTONE CASE D/W WITH ICU ATTENDING
[2019-01-03 06:09] LABS: BASO # 0.1 K/uL (0.0-0.2); BASO % 0.4 % (0.0-2.0); EOS # 0.5 K/uL (0.0-0.7); EOS % 2.4 % (0.0-4.0); HEMOGLOBIN 12.8 g/dL (11.0-16.0); LYMPH # 2.5 K/uL (1.0-4.3); LYMPH % 12.1 % (20.0-40.0); MEAN CELL VOLUME 87.1 fL (81.0-99.0); MEAN CORPUSCULAR HEMOGLOBIN 28.3 pg (27.0-31.0); MEAN CORPUSCULAR HGB CONC 32.5 g/dL (33.0-37.0); MEAN PLATELET VOLUME 11.9 fL (7.2-11.7); MONO # 1.4 K/uL (0.0-0.8); MONO % 6.8 % (0.0-10.0); NEUT # 16.1 K/uL (1.8-7.0); NEUT % 78.3 % (50.0-75.0); RBC 4.51 Mil/uL (3.80-5.20); RED CELL DISTRIBUTION WIDTH 13.8 % (11.5-14.5); WHITE BLOOD COUNT 20.6 K/uL (4.8-10.8)
[2019-01-03 06:39] LABS: ALBUMIN 3.5 g/dL (3.5-5.0); ALT/SGPT 17 U/L (9-52); AST/SGOT 47 U/L (14-36); BLOOD UREA NITROGEN 20 mg/dL (7-17); CALCIUM 8.6 mg/dl (8.6-10.4); GFR NON-AFRICAN AMERICAN > 60
--- NOTE | 2019-01-03 08:01 | CP.PCM.PN ---
Subjective - Date & Time of Evaluation Date of Evaluation: 01/03/19 Time of Evaluation: 07:30 - Subjective Subjective: Endocrinology Progress note for Dr. Weaver Patient seen and examined at bedside in the ICU. No acute distress. Patient is sitting out of bed to chair. Patient denies any abd pain, nausea, vomiting, diarrhea or constipation. She is tolerating liquid diet. 12 point ROS negative except as stated above. Objective - Vital Signs/Intake and Output Vital Signs (last 24 hours): Temp Pulse Resp BP Pulse Ox 98.5 F 103 H 18 141/93 H 100 01/03/19 04:00 01/03/19 04:00 01/03/19 04:00 01/03/19 04:00 01/03/19 04:00 Intake and Output: 01/03/19 01/03/19 06:59 18:59 Intake Total 360 Output Total 800 Balance -440 - Medications Medications: Current Medications Acetaminophen (Tylenol 650mg/20.3ml Solution Ud) 650 mg GT Q6 PRN PRN Reason: Temperature Last Admin: 12/31/18 23:00 Dose: 650 mg Enoxaparin Sodium (Lovenox) 30 mg SC DAILY [facility] Last Admin: 01/01/19 09:00 Dose: 30 mg Glimepiride (Amaryl) 4 mg PO ACBD [facility] Last Admin: 01/02/19 16:25 Dose: 4 mg Insulin Human Regular (Novolin R) 0 unit SC [facility]; Protocol Last Admin: 01/02/19 21:51 Dose: Not Given Methimazole (Tapazole) 20 mg PO Q8H [facility] Last Admin: 01/03/19 00:49 Dose: 20 mg Pantoprazole Sodium (Protonix Susp) 40 mg PO DAILY [facility] Last Admin: 01/02/19 10:00 Dose: 40 mg Propranolol HCl (Inderal) 30 mg PO Q8H [facility] Last Admin: 01/03/19 04:05 Dose: 30 mg Rosuvastatin Calcium (Crestor) 10 mg PO HS [facility] Last Admin: 01/02/19 22:21 Dose: 10 mg Spironolactone (Aldactone) 50 mg PO DAILY [facility] Last Admin: 01/02/19 13:45 Dose: 50 mg - Labs Labs: 01/03/19 06:00 01/03/19 05:55 PT 14.1 SECONDS (9.7-12.2) H 03/25/19 06:07 INR 1.3 12/26/18 06:07 APTT 32 SECONDS (21-34) 12/26/18 06:07 - Additional Findings Additional findings: - Constitutional Appears: Non-toxic, No Acute Distress - Head Exam Head Exam: ATRAUMATIC, NORMOCEPHALIC - Eye Exam Eye Exam: PERRL. absent: Nystagmus Additional comments: tracking and blinking - ENT Exam ENT Exam: Mucous Membranes Dry Additional comments: thyromegaly - Respiratory Exam Respiratory Exam: Clear to Ausculation Bilateral, NORMAL BREATHING PATTERN Additional comments: NC in place - Cardiovascular Exam Cardiovascular Exam: Tachycardia, +S1, +S2 - GI/Abdominal Exam GI & Abdominal Exam: Soft, Normal Bowel Sounds. absent: Guarding, Rigid - Extremities Exam Extremities Exam: Normal Capillary Refill - Neurological Exam Neurological Exam: Awake, Alert Additional comments: moves all 4 extremities voluntarily - Psychiatric Exam Psychiatric exam: Flat Affect - Skin Skin Exam: Dry, Intact, Normal Color, Warm Assessment and Plan - Assessment and Plan (Free Text) Assessment: 48 yo female with PMH of HTN, Hyperthyroidism, TIA, anxiety, asthma and Grave's dx presented to the hospital with complaints of severe abdominal pain, nausea, and vomiting. Patient had cardiac arrest x 3 and ROSC was achieved. Admitted to MICU for further management. Endocrinology consulted for possible thyroid storm. Plan: Blood work, imaging, and chart reviewed. On 01/02 patient's T4 12.8 TSH < 0.02. Patient is currently on Tapazole to 20q8. Will continue to titrate up based on labs results. Will continue to monitor blood work, repeat TSH and T4 tomorrow morning. Continue management as per primary and MICU team. Patient will need close endocrine follow up as outpatient; patient is a candidate for radioactive ablation therapy of thyroid but this will be need to be done outpatient and Tapazole will need to be held for 7-10 days prior to diagnostic radiouptake scan and prior to radioablation procedure. Case reviewed and discussed with Dr. Weaver
[2019-01-03] MEDS: (Novolin R) Insulin Human Regular 100 units/ml vial SC SCH ×4 (08:31→21:47)
[2019-01-03] MEDS ORDERED: Potassium Chloride 20 mEq/15 ml LIQ UD PO ONE (09:45)
[2019-01-03] MEDS: Pantoprazole 40 mg Susp UD PO SCH (09:45)
--- NOTE | 2019-01-03 12:13 | CP.PCM.PN ---
Subjective - Date & Time of Evaluation Date of Evaluation: 01/03/19 Time of Evaluation: 12:12 - Subjective Subjective: Nephrology Consultation Note: Assessment: stable Non-oliguric Acute Kidney Injury (N17.9) likely due to renal hypoperfusion due to cardiac arrest/hypotension leading to ATN, had exposure to IV contrast in addition: IMPROVED uncontrolled severe HTN, with shock hypokalemia, hyperkalemia, HAGMA/lactic acidosis hypernatremia hypertension (years) obesity hyperthyroidism thyroid storm, cardiac arrest s/p resuscitation BiV failure with LVEF 15%, sepsis Plan No acute need for renal replacement therapy at this time. Hypertension control with meds as ordered. Maintain hemodynamics stable. Avoid hypotension. continue with RAAS maggy. continue with rate control meds as beta blockers Monitor Input/Output, daily weights and renal function with basic metabolic panel supplement lytes as needed endocrine and cardiology following free water intake continue Dose meds/antibiotics for improved GFR. Glycemic control Further work up/management as per primary team Thanks for allowing me to participate in care of your patient. Will follow patient with you. Please call if any Qs. had d/w team Dr Darshan Call Office: [phone] Chief Complaint; unable Reason for consult: Acute Kidney Injury HPI: Pt is a 48 F with hx of hypertension (years) obesity hyperthyroidism presented with complaints of pain abdomen and found to have thyroid storm, cardiac arrest s/p resuscitation, foudn to have BiV failure with LVEF 15%, sepsis and also with TANVI hence renal consulted no known OTC/herbal meds or NSAIDs Noted recent iodinated contrast exposure as CTA. Noted obvious episodes of low BP. ROS: pt feels better. able to eat. denies Cp/SOB Physical Examination: General Appearance: Comfortable, in no acute respiratory distress, better appearing Vitals reviewed and noted as below Head; Atraumatic, normocephalic ENT: no ulcers no thrush. Tongue is midline. Oropharynx: no rash or ulcers. EYES: Pupils are equal, round and sluggish to light accommodation. Eye muscles and extraocular movement intact. Sclera is anicteric. Neck; supple no lymphadenopathy, gross thyromegaly noted Lungs: Normal respiratory rate/effort. Breath sounds b/l reduced at bases with few crackle Heart: Increased rate. s1s2 normal. No rub or gallop. Extremities: no edema. No varicose veins Neurological: Patient is awake alert and follow commands. communicative Skin: Warm and dry. Normal turgor. No rash. Palpitation: Normal elasticity for age Abdomen: Abdomen is soft. Bowel sounds +. There is no abdominal tenderness, no guarding/rigidity no organomegaly Psych: limited insight. normal affect MSK: no joint tenderness or swelling. Digits and nails normal, no deformity : kidney or bladder not palpable Labs/imaging reviewed. Past medical history, past surgical history, family history, social history, allergy reviewed and noted as below Family hx: no hx of CKD. Rest non-contributory Objective - Vital Signs/Intake and Output Vital Signs (last 24 hours): Temp Pulse Resp BP Pulse Ox 98.5 F 103 H 18 141/93 H 100 01/03/19 04:00 01/03/19 04:00 01/03/19 04:00 01/03/19 04:00 01/03/19 04:00 Intake and Output: 01/03/19 01/03/19 06:59 18:59 Intake Total 360 Output Total 800 Balance -440 - Medications Medications: Current Medications Acetaminophen (Tylenol 650mg/20.3ml Solution Ud) 650 mg GT Q6 PRN PRN Reason: Temperature Last Admin: 12/31/18 23:00 Dose: 650 mg Enoxaparin Sodium (Lovenox) 30 mg SC DAILY [facility] Last Admin: 01/01/19 09:00 Dose: 30 mg Glimepiride (Amaryl) 4 mg PO ACBD [facility] Last Admin: 01/03/19 08:27 Dose: 4 mg Insulin Human Regular (Novolin R) 0 unit SC [facility]; Protocol Last Admin: 01/03/19 11:57 Dose: 5 u Methimazole (Tapazole) 20 mg PO Q8H [facility] Last Admin: 01/03/19 09:42 Dose: 20 mg Pantoprazole Sodium (Protonix Susp) 40 mg PO DAILY [facility] Last Admin: 01/03/19 09:45 Dose: 40 mg Propranolol HCl (Inderal) 30 mg PO Q8H [facility] Last Admin: 01/03/19 10:17 Dose: 30 mg Rosuvastatin Calcium (Crestor) 10 mg PO HS [facility] Last Admin: 01/02/19 22:21 Dose: 10 mg Spironolactone (Aldactone) 50 mg PO DAILY [facility] Last Admin: 01/03/19 09:44 Dose: 50 mg - Labs Labs: 01/03/19 06:00 01/03/19 05:55 PT 14.1 SECONDS (9.7-12.2) H 12/26/18 06:07 INR 1.3 12/26/18 06:07 APTT 32 SECONDS (21-34) 12/26/18 06:07
--- NOTE | 2019-01-03 14:21 | RAD ---
Date of service: 01/03/2019 HISTORY: r/o pneumonia COMPARISON: Comparison chest 01/01/2019. TECHNIQUE: 1 view obtained. FINDINGS: LUNGS: No active pulmonary disease. PLEURA: No significant pleural effusion identified, no pneumothorax apparent. CARDIOVASCULAR: No aortic atherosclerotic calcification present. Heart is mildly enlarged.. No pulmonary vascular congestion. OSSEOUS STRUCTURES: No significant abnormalities. VISUALIZED UPPER ABDOMEN: Normal. OTHER FINDINGS: None. IMPRESSION: No active disease.
--- NOTE | 2019-01-03 14:24 | PN ---
DATE: 01/03/2019 ENDOCRINOLOGY FOLLOWUP NOTE LOCATION: In ICU room 18. SUBJECTIVE: This is a 48-year-old female with recent cardiopulmonary arrest and since then improved hemodynamically and clinically with subsequent extubation and is doing very well on nasal oxygen delivery as noted. She also had overt thyrotoxicosis presenting with mild hyperthyroidism notable both historically, clinically, and biochemically and once again has improved remarkably with suprapharmacologic doses of medical therapy as given. She remains clinically euthyroid at this time and the latest thyroxine level is 12.8 with a free T4 of 2.01 and a TSH of less than 0.02. LABORATORY DATA: Her chemistry showed a BUN of 20, sodium 138, potassium of 3.4, chloride 101, CO2 of 31, glucose 120, and creatinine 0.8. ASSESSMENT AND PLAN: So at this time, we will continue the same modified medical therapy for hyperthyroidism with Tapazole given as 20 mg every 8 hours as ordered. We will also continue her Inderal given as 30 mg every 8 hours as given. For eventual discharge, we would recommend a long-acting beta-maggy such as propranolol LA given as 80 mg once daily as ordered. We would also simplify her Tapazole therapy to enhance drug compliance and since this is a long-acting medication, we would recommend a once daily dosing of Tapazole given as 40 mg once daily as ordered. We will eventually recommend a more definitive therapeutic treatment with radioactive iodine upon discharge and this will entail the discontinuation of her Tapazole therapy prior to the thyroid scan and uptake procedure to be undertaken before the administration of radioactive iodine ablation. We will follow and advise accordingly. Linda Weaver MD
--- NOTE | 2019-01-03 16:53 | CP.PCM.PN ---
Subjective - Date & Time of Evaluation Date of Evaluation: 01/03/19 Time of Evaluation: 16:53 - Subjective Subjective: Neuro Follow-Up Note: Mrs. Barnhart was evaluated this afternoon in the ICU upon returning from CT department. She was downgraded to tele on 12/31/18. Pt states that she feels good today, "just tired." Offers no new complaints. States that she worked with PT today and did well. Denies h/a, dizziness, visual changes, chest pain, palpitations, sob, abd pain, n/v/d, paresthesias, fever/chills. Objective - Vital Signs/Intake and Output Vital Signs (last 24 hours): Temp Pulse Resp BP Pulse Ox 98.0 F 102 H 19 132/91 H 99 01/03/19 16:00 01/03/19 16:00 01/03/19 16:00 01/03/19 16:00 01/03/19 16:00 Intake and Output: 01/03/19 01/03/19 06:59 18:59 Intake Total 360 200 Output Total 800 100 Balance -440 100 - Medications Medications: Current Medications Acetaminophen (Tylenol 650mg/20.3ml Solution Ud) 650 mg GT Q6 PRN PRN Reason: Temperature Last Admin: 12/31/18 23:00 Dose: 650 mg Enoxaparin Sodium (Lovenox) 30 mg SC DAILY [facility] Last Admin: 01/01/19 09:00 Dose: 30 mg Glimepiride (Amaryl) 4 mg PO ACBD [facility] Last Admin: 01/03/19 08:27 Dose: 4 mg Insulin Human Regular (Novolin R) 0 unit SC [facility]; Protocol Last Admin: 01/03/19 16:35 Dose: Not Given Methimazole (Tapazole) 20 mg PO Q8H [facility] Last Admin: 01/03/19 09:42 Dose: 20 mg Pantoprazole Sodium (Protonix Susp) 40 mg PO DAILY [facility] Last Admin: 01/03/19 09:45 Dose: 40 mg Propranolol HCl (Inderal) 30 mg PO Q8H [facility] Last Admin: 01/03/19 10:17 Dose: 30 mg Rosuvastatin Calcium (Crestor) 10 mg PO HS [facility] Last Admin: 01/02/19 22:21 Dose: 10 mg Spironolactone (Aldactone) 50 mg PO DAILY [facility] Last Admin: 01/03/19 09:44 Dose: 50 mg - Labs Labs: 01/03/19 06:00 01/03/19 05:55 PT 14.1 SECONDS (9.7-12.2) H 12/26/18 06:07 INR 1.3 12/26/18 06:07 APTT 32 SECONDS (21-34) 12/26/18 06:07 - Constitutional Appears: Well, Non-toxic, No Acute Distress - Head Exam Head Exam: ATRAUMATIC, NORMAL INSPECTION, NORMOCEPHALIC - Eye Exam Eye Exam: EOMI, PERRL Pupil Exam: NORMAL ACCOMODATION, PERRL Additional comments: exophthalmos b/l - ENT Exam ENT Exam: Mucous Membranes Moist - Neck Exam Neck Exam: Full ROM - Respiratory Exam Respiratory Exam: NORMAL BREATHING PATTERN - Cardiovascular Exam Cardiovascular Exam: Tachycardia (103 on tele mx) - Extremities Exam Extremities Exam: absent: Calf Tenderness, Pedal Edema Additional comments: Able to move all extremities, still has generalized weakness 2/2 deconditioning. - Back Exam Back Exam: Full ROM - Neurological Exam Neurological Exam: Alert, Awake, Oriented x3 Neuro motor strength exam: Left Upper Extremity: 4, Right Upper Extremity: 4, Left Lower Extremity: 3, Right Lower Extremity: 3 Additional comments: Speech clear, fluid Able to move all extremities w generalized weakness 2/2 deconditioning Reflexes brisk b/l No sensory deficits No tremors or abnormal movements - Psychiatric Exam Psychiatric exam: Normal Affect, Normal Mood - Skin Skin Exam: Normal Color Assessment and Plan (1) Anoxic brain injury Assessment & Plan: Imaging reviewed: -CT head (01/02/19): 1. Small layering subdural hematoma along the right tentorium cerebelli. 2. No CT evidence for left parietal convexity subdural hematoma. -MRI Brain (12/31/18): There is small amount of extra-axial fluid demonstrate hyperintense T1 signal noted in the right posterior fossa and left posterior parietal region suspicious for subdural hematoma. Further evaluation by CT of the head is suggested. No evidence of acute infarction mass effect or midline shift. Mild volume loss. -Will consult Dr. Louise, neurosurgery, for SDH noted on CT Head---f/u with recommendations. -Continue to hold AC and anti-platelet. -SCDs for DVT ppx. -Continue current treatment. -Continue PT/OT -Continue BP control. -Notify neuro of any acute changes. Kathleen Plata DNP, JEWEL WAXER D/W Dr. Babb Status: Acute
--- NOTE | 2019-01-03 18:55 | CP.PCM.PN ---
Subjective - Date & Time of Evaluation Date of Evaluation: 01/03/19 Time of Evaluation: 11:25 - Subjective Subjective: appears weak although family bedside father and mother no fever Objective - Vital Signs/Intake and Output Vital Signs (last 24 hours): Temp Pulse Resp BP Pulse Ox 98.0 F 102 H 19 132/91 H 99 01/03/19 16:00 01/03/19 16:00 01/03/19 16:00 01/03/19 16:00 01/03/19 16:00 Intake and Output: 01/03/19 01/03/19 06:59 18:59 Intake Total 360 410 Output Total 800 200 Balance -440 210 - Medications Medications: Current Medications Acetaminophen (Tylenol 650mg/20.3ml Solution Ud) 650 mg GT Q6 PRN PRN Reason: Temperature Last Admin: 12/31/18 23:00 Dose: 650 mg Enoxaparin Sodium (Lovenox) 30 mg SC DAILY [facility] Last Admin: 01/01/19 09:00 Dose: 30 mg Glimepiride (Amaryl) 4 mg PO ACBD [facility] Last Admin: 01/03/19 17:09 Dose: 4 mg Insulin Human Regular (Novolin R) 0 unit SC [facility]; Protocol Last Admin: 01/03/19 16:35 Dose: Not Given Methimazole (Tapazole) 20 mg PO Q8H [facility] Last Admin: 01/03/19 17:09 Dose: 20 mg Pantoprazole Sodium (Protonix Susp) 40 mg PO DAILY [facility] Last Admin: 01/03/19 09:45 Dose: 40 mg Propranolol HCl (Inderal) 30 mg PO Q8H [facility] Last Admin: 01/03/19 18:11 Dose: 30 mg Rosuvastatin Calcium (Crestor) 10 mg PO HS [facility] Last Admin: 01/02/19 22:21 Dose: 10 mg Spironolactone (Aldactone) 50 mg PO DAILY [facility] Last Admin: 01/03/19 09:44 Dose: 50 mg - Labs Labs: 01/03/19 06:00 01/03/19 05:55 PT 14.1 SECONDS (9.7-12.2) H 12/26/18 06:07 INR 1.3 12/26/18 06:07 APTT 32 SECONDS (21-34) 12/26/18 06:07 - Constitutional Appears: Well - Head Exam Head Exam: ATRAUMATIC, NORMAL INSPECTION, NORMOCEPHALIC - Eye Exam Eye Exam: EOMI, Normal appearance, PERRL Pupil Exam: NORMAL ACCOMODATION, PERRL - ENT Exam ENT Exam: Mucous Membranes Moist, Normal Exam - Neck Exam Neck Exam: Full ROM, Normal Inspection. absent: Lymphadenopathy - Respiratory Exam Respiratory Exam: Decreased Breath Sounds - Cardiovascular Exam Cardiovascular Exam: REGULAR RHYTHM, +S1, +S2 - GI/Abdominal Exam GI & Abdominal Exam: Soft, Diminished Bowel Sounds - Rectal Exam Rectal Exam: Deferred - Neurological Exam Neurological Exam: Oriented x3 Assessment and Plan - Assessment and Plan (Free Text) Plan: medications reviewed aldactone amaryl crestor inderal lovenox novolin R protonix susp tapazole tylenol 650mg/20.3ml soln ud encourage po feeding labs d.w wth pt tapazole may need rehab followupwth consultations pt asked t come out of bed to chair encouarge po feeding d/w mother and father both aare bedside Moderate complexity of care
--- NOTE | 2019-01-03 23:00 | CP.PCM.PN ---
Subjective - Date & Time of Evaluation Date of Evaluation: 01/03/19 Time of Evaluation: 09:00 - Subjective Subjective: lethargic'family at bedside 'NAD Objective - Vital Signs/Intake and Output Vital Signs (last 24 hours): Temp Pulse Resp BP Pulse Ox 98.5 F 106 H 18 141/93 H 100 01/03/19 04:00 01/03/19 08:00 01/03/19 04:00 01/03/19 04:00 01/03/19 04:00 Intake and Output: 01/03/19 01/03/19 06:59 18:59 Intake Total 360 Output Total 800 Balance -440 - Medications Medications: Current Medications Acetaminophen (Tylenol 650mg/20.3ml Solution Ud) 650 mg GT Q6 PRN PRN Reason: Temperature Last Admin: 12/31/18 23:00 Dose: 650 mg Enoxaparin Sodium (Lovenox) 30 mg SC DAILY [facility] Last Admin: 01/01/19 09:00 Dose: 30 mg Glimepiride (Amaryl) 4 mg PO ACBD [facility] Last Admin: 01/03/19 08:27 Dose: 4 mg Insulin Human Regular (Novolin R) 0 unit SC [facility]; Protocol Last Admin: 01/03/19 11:57 Dose: 5 u Methimazole (Tapazole) 20 mg PO Q8H [facility] Last Admin: 01/03/19 09:42 Dose: 20 mg Pantoprazole Sodium (Protonix Susp) 40 mg PO DAILY [facility] Last Admin: 01/03/19 09:45 Dose: 40 mg Propranolol HCl (Inderal) 30 mg PO Q8H [facility] Last Admin: 01/03/19 10:17 Dose: 30 mg Rosuvastatin Calcium (Crestor) 10 mg PO HS [facility] Last Admin: 01/02/19 22:21 Dose: 10 mg Spironolactone (Aldactone) 50 mg PO DAILY [facility] Last Admin: 01/03/19 09:44 Dose: 50 mg - Labs Labs: 01/03/19 06:00 01/03/19 05:55 PT 14.1 SECONDS (9.7-12.2) H 12/26/18 06:07 INR 1.3 12/26/18 06:07 APTT 32 SECONDS (21-34) 12/26/18 06:07 - Constitutional Appears: Chronically Ill - Head Exam Head Exam: NORMOCEPHALIC - Eye Exam Eye Exam: absent: Scleral icterus - ENT Exam ENT Exam: Mucous Membranes Dry - Neck Exam Neck Exam: absent: Lymphadenopathy - Respiratory Exam Respiratory Exam: Decreased Breath Sounds - Cardiovascular Exam Cardiovascular Exam: REGULAR RHYTHM - GI/Abdominal Exam GI & Abdominal Exam: Distended - Rectal Exam Rectal Exam: Deferred - Exam Exam: NORMAL INSPECTION Assessment and Plan (1) Fever Status: Acute (2) TANVI (acute kidney injury) Status: Acute (3) Cardiac arrest Status: Acute (4) Cardiomyopathy Status: Acute (5) Thyrotoxicosis Status: Acute
[2019-01-04 05:54] LABS: BASO # 0.1 K/uL (0.0-0.2); BASO % 0.3 % (0.0-2.0); EOS # 0.3 K/uL (0.0-0.7); EOS % 1.4 % (0.0-4.0); HEMOGLOBIN 13.2 g/dL (11.0-16.0); LYMPH % 16.2 % (20.0-40.0); MEAN CELL VOLUME 87.7 fL (81.0-99.0); MEAN CORPUSCULAR HEMOGLOBIN 28.4 pg (27.0-31.0); MEAN CORPUSCULAR HGB CONC 32.3 g/dL (33.0-37.0); MEAN PLATELET VOLUME 11.3 fL (7.2-11.7); MONO # 1.3 K/uL (0.0-0.8); MONO % 6.9 % (0.0-10.0); NEUT # 14.1 K/uL (1.8-7.0); NEUT % 75.2 % (50.0-75.0); RBC 4.66 Mil/uL (3.80-5.20); WHITE BLOOD COUNT 18.8 K/uL (4.8-10.8)
[2019-01-04 06:37] LABS: ALB/GLOB RATIO 0.9 (1.0-2.1); ALBUMIN 3.2 g/dL (3.5-5.0); ALT/SGPT 26 U/L (9-52); AST/SGOT 46 U/L (14-36); BLOOD UREA NITROGEN 22 mg/dL (7-17); CALCIUM 8.6 mg/dl (8.6-10.4); GFR NON-AFRICAN AMERICAN > 60
--- NOTE | 2019-01-04 07:31 | CP.PCM.PN ---
Subjective - Date & Time of Evaluation Date of Evaluation: 01/04/19 Time of Evaluation: 07:29 - Subjective Subjective: Endocrinology Progress note for Dr. Weaver Patient seen and examined at bedside in the ICU. No acute distress. Patient denies any abd pain, chest pain, sob nausea, vomiting, diarrhea or constipation. She is tolerating liquid diet. 12 point ROS negative except as stated above. Objective - Vital Signs/Intake and Output Vital Signs (last 24 hours): Temp Pulse Resp BP Pulse Ox 98.6 F 98 H 15 128/85 100 01/04/19 04:00 01/04/19 04:00 01/04/19 04:00 01/04/19 04:00 01/04/19 04:00 Intake and Output: 01/04/19 01/04/19 06:59 18:59 Intake Total 500 Output Total 700 Balance -200 - Medications Medications: Current Medications Acetaminophen (Tylenol 650mg/20.3ml Solution Ud) 650 mg GT Q6 PRN PRN Reason: Temperature Last Admin: 12/31/18 23:00 Dose: 650 mg Enoxaparin Sodium (Lovenox) 30 mg SC DAILY [facility] Last Admin: 01/01/19 09:00 Dose: 30 mg Glimepiride (Amaryl) 4 mg PO ACBD [facility] Last Admin: 01/03/19 17:09 Dose: 4 mg Insulin Human Regular (Novolin R) 0 unit SC [facility]; Protocol Last Admin: 01/03/19 21:47 Dose: Not Given Methimazole (Tapazole) 20 mg PO Q8H [facility] Last Admin: 01/04/19 02:00 Dose: 20 mg Pantoprazole Sodium (Protonix Susp) 40 mg PO DAILY [facility] Last Admin: 01/03/19 09:45 Dose: 40 mg Propranolol HCl (Inderal) 30 mg PO Q8H [facility] Last Admin: 01/04/19 03:00 Dose: 30 mg Rosuvastatin Calcium (Crestor) 10 mg PO HS [facility] Last Admin: 01/03/19 21:46 Dose: 10 mg Spironolactone (Aldactone) 50 mg PO DAILY [facility] Last Admin: 01/03/19 09:44 Dose: 50 mg - Labs Labs: 01/04/19 05:47 01/04/19 05:47 PT 14.1 SECONDS (9.7-12.2) H 12/26/18 06:07 INR 1.3 12/26/18 06:07 APTT 32 SECONDS (21-34) 12/26/18 06:07 - Additional Findings Additional findings: - Constitutional Appears: Non-toxic, No Acute Distress - Head Exam Head Exam: ATRAUMATIC, NORMOCEPHALIC - Eye Exam Eye Exam: PERRL. absent: Nystagmus - ENT Exam ENT Exam: Mucous Membranes Dry Additional comments: thyromegaly - Respiratory Exam Respiratory Exam: Clear to Ausculation Bilateral, NORMAL BREATHING PATTERN Additional comments: NC in place - Cardiovascular Exam Cardiovascular Exam: Regular rate and rhythm, +S1, +S2 - GI/Abdominal Exam GI & Abdominal Exam: Soft, Normal Bowel Sounds. absent: Guarding, Rigid - Extremities Exam Extremities Exam: Normal Capillary Refill - Neurological Exam Neurological Exam: Awake, Alert, oriented - Psychiatric Exam Psychiatric exam: Flat Affect - Skin Skin Exam: Dry, Intact, Normal Color, Warm Assessment and Plan - Assessment and Plan (Free Text) Assessment: 48 yo female with PMH of HTN, Hyperthyroidism, TIA, anxiety, asthma and Grave's dx presented to the hospital with complaints of severe abdominal pain, nausea, and vomiting. Patient had cardiac arrest x 3 and ROSC was achieved. Admitted to MICU for further management. Endocrinology consulted for possible thyroid storm. Plan: Blood work, imaging, and chart reviewed. This morning T4 10.5 and TSH < 0.02. Patient is currently on Tapazole to 20q8. Will continue to titrate up based on labs results. Will continue to monitor blood work. Continue management as per primary and MICU team. Patient will need close endocrine follow up as outpatient; patient is a candidate for radioactive ablation therapy of thyroid but this will be need to be done outpatient and Tapazole will need to be held for 7-10 days prior to diagnostic radiouptake scan and prior to radioablation procedure. Case reviewed and discussed with Dr. Weaver
[2019-01-04] MEDS: (Novolin R) Insulin Human Regular 100 units/ml vial SC SCH ×4 (08:30→22:00)
[2019-01-04] MEDS: Pantoprazole 40 mg Susp UD PO SCH (09:30)
--- NOTE | 2019-01-04 10:46 | CP.PCM.PN ---
<Ivis Morrison Y - Last Filed: 01/04/19 10:41> Subjective - Date & Time of Evaluation Date of Evaluation: 01/04/19 Time of Evaluation: 09:45 - Subjective Subjective: PGY-1 Neurology Progress Note for Dr. Babb Patient was seen and examined today in no acute distress with parents at bedside. Nurse reports no overnight events. Patient reports no new complaints. She's concerned that her progression has stagnated since she feels the same over the last few days. She has been working with PT and regaining muscle strength each day, but feels tired. Denies headache, dizziness, changes in vision or hearing, chest pain, palpitations, shortness of breath, abdominal pain, n/v/d, parasthesias, fever, or chills. Objective - Vital Signs/Intake and Output Vital Signs (last 24 hours): Temp Pulse Resp BP Pulse Ox 98.6 F 98 H 15 128/85 100 01/04/19 04:00 01/04/19 04:00 01/04/19 04:00 01/04/19 04:00 01/04/19 04:00 Intake and Output: 01/04/19 01/04/19 06:59 18:59 Intake Total 500 Output Total 700 Balance -200 - Medications Medications: Current Medications Acetaminophen (Tylenol 650mg/20.3ml Solution Ud) 650 mg GT Q6 PRN PRN Reason: Temperature Last Admin: 12/31/18 23:00 Dose: 650 mg Enoxaparin Sodium (Lovenox) 30 mg SC DAILY [facility] Last Admin: 01/01/19 09:00 Dose: 30 mg Glimepiride (Amaryl) 4 mg PO ACBD [facility] Last Admin: 01/04/19 08:30 Dose: 4 mg Insulin Human Regular (Novolin R) 0 unit SC [facility]; Protocol Last Admin: 01/04/19 08:30 Dose: Not Given Methimazole (Tapazole) 20 mg PO Q8H [facility] Last Admin: 01/04/19 09:33 Dose: 20 mg Pantoprazole Sodium (Protonix Susp) 40 mg PO DAILY [facility] Last Admin: 01/04/19 09:30 Dose: 40 mg Propranolol HCl (Inderal) 30 mg PO Q8H [facility] Last Admin: 01/04/19 10:00 Dose: 30 mg Rosuvastatin Calcium (Crestor) 10 mg PO HS [facility] Last Admin: 01/03/19 21:46 Dose: 10 mg Spironolactone (Aldactone) 50 mg PO DAILY [facility] Last Admin: 01/04/19 09:31 Dose: 50 mg - Labs Labs: 01/04/19 05:47 01/04/19 05:47 PT 14.1 SECONDS (9.7-12.2) H 12/26/18 06:07 INR 1.3 12/26/18 06:07 APTT 32 SECONDS (21-34) 12/26/18 06:07 - Constitutional Appears: Well, Non-toxic, No Acute Distress - Head Exam Head Exam: ATRAUMATIC, NORMOCEPHALIC - Eye Exam Eye Exam: EOMI, Normal appearance, PERRL Pupil Exam: NORMAL ACCOMODATION - ENT Exam ENT Exam: Mucous Membranes Moist - Neck Exam Neck Exam: Full ROM - Respiratory Exam Respiratory Exam: NORMAL BREATHING PATTERN Additional comments: on NC - Cardiovascular Exam Cardiovascular Exam: Tachycardia, +S1, +S2 - GI/Abdominal Exam GI & Abdominal Exam: Soft, Normal Bowel Sounds. absent: Tenderness - Extremities Exam Extremities Exam: Normal Capillary Refill. absent: Calf Tenderness, Pedal Edema, Tenderness Additional comments: able to move all extremities generalized weakness 2/2 deconditioning - Neurological Exam Neurological Exam: Alert, Awake, Oriented x3, Reflexes Normal Neuro motor strength exam: Left Upper Extremity: 4, Right Upper Extremity: 4, Left Lower Extremity: 3, Right Lower Extremity: 3 Additional comments: speech clear, fluid reflexes brisk bilaterally (bicep, patellar) no sensory deficits no tremors or abnormal movements - Psychiatric Exam Psychiatric exam: Depressed, Normal Affect, Normal Mood - Skin Skin Exam: Dry, Normal Color, Warm Assessment and Plan (1) Anoxic brain injury Assessment & Plan: Imaging reviewed: -CT head (01/02/19): 1. Small layering subdural hematoma along the right tentorium cerebelli. 2. No CT evidence for left parietal convexity subdural hematoma. -MRI Brain (12/31/18): There is small amount of extra-axial fluid demonstrate hyperintense T1 signal noted in the right posterior fossa and left posterior parietal region suspicious for subdural hematoma. Further evaluation by CT of the head is suggested. No evidence of acute infarction mass effect or midline shift. Mild volume loss. - f/u Neurosurgery, Dr. Louise recs - cont hold AC and anti-platelet - SCDs for DVT ppx - cont medical management per primary - cont PT/OT - cont BP control - Notify neuro of any acute changes d/w Dr. Holley Morrison PGY-1 Status: Acute <Maged Babb - Last Filed: 01/16/19 09:30> Objective - Vital Signs/Intake and Output Vital Signs (last 24 hours): Temp Pulse Resp BP Pulse Ox 99 F 105 H 20 127/85 97 01/10/19 18:28 01/10/19 18:28 01/10/19 18:28 01/10/19 18:28 01/10/19 18:28 - Labs Labs: 01/07/19 06:53 01/08/19 07:35 PT 14.1 SECONDS (9.7-12.2) H 12/26/18 06:07 INR 1.3 12/26/18 06:07 APTT 32 SECONDS (21-34) 12/26/18 06:07 Attending/Attestation - Attestation I have personally seen and examined this patient.: Yes I have fully participated in the care of the patient.: Yes I have reviewed all pertinent clinical information, including history, physical exam and plan: Yes Notes (Text): I agree with the assessment and plan. Small subdural. Will continue monitoring.
--- NOTE | 2019-01-04 15:06 | CP.PCM.PN ---
Subjective - Date & Time of Evaluation Date of Evaluation: 01/04/19 Time of Evaluation: 10:00 - Subjective Subjective: Nephrology Consultation Note: Assessment: stable Non-oliguric Acute Kidney Injury (N17.9) likely due to renal hypoperfusion due to cardiac arrest/hypotension leading to ATN, had exposure to IV contrast in addition: IMPROVED uncontrolled severe HTN, with shock hypokalemia, hyperkalemia, HAGMA/lactic acidosis hypernatremia hypertension (years) obesity hyperthyroidism thyroid storm, cardiac arrest s/p resuscitation BiV failure with LVEF 15%, sepsis Plan No acute need for renal replacement therapy at this time. Hypertension control with meds as ordered. Maintain hemodynamics stable. Avoid hypotension. continue with RAAS maggy. continue with rate control meds as beta blockers Monitor Input/Output, daily weights and renal function with basic metabolic panel supplement lytes as needed endocrine and cardiology following free water intake continue Dose meds/antibiotics for improved GFR. Glycemic control Further work up/management as per primary team Thanks for allowing me to participate in care of your patient. Will follow patient with you. Please call if any Qs. had d/w team Dr Darshan Call Office: [phone] Chief Complaint; unable Reason for consult: Acute Kidney Injury HPI: Pt is a 48 F with hx of hypertension (years) obesity hyperthyroidism presented with complaints of pain abdomen and found to have thyroid storm, cardiac arrest s/p resuscitation, foudn to have BiV failure with LVEF 15%, sepsis and also with TANVI hence renal consulted no known OTC/herbal meds or NSAIDs Noted recent iodinated contrast exposure as CTA. Noted obvious episodes of low BP. ROS: pt feels better. able to eat. denies Cp/SOB Physical Examination: General Appearance: Comfortable, in no acute respiratory distress, better appearing Vitals reviewed and noted as below Head; Atraumatic, normocephalic ENT: no ulcers no thrush. Tongue is midline. Oropharynx: no rash or ulcers. EYES: Pupils are equal, round and sluggish to light accommodation. Eye muscles and extraocular movement intact. Sclera is anicteric. Neck; supple no lymphadenopathy, gross thyromegaly noted Lungs: Normal respiratory rate/effort. Breath sounds b/l reduced at bases with few crackle Heart: Increased rate. s1s2 normal. No rub or gallop. Extremities: no edema. No varicose veins Neurological: Patient is awake alert and follow commands. communicative Skin: Warm and dry. Normal turgor. No rash. Palpitation: Normal elasticity for age Abdomen: Abdomen is soft. Bowel sounds +. There is no abdominal tenderness, no guarding/rigidity no organomegaly Psych: limited insight. normal affect MSK: no joint tenderness or swelling. Digits and nails normal, no deformity : kidney or bladder not palpable Labs/imaging reviewed. Past medical history, past surgical history, family history, social history, allergy reviewed and noted as below Family hx: no hx of CKD. Rest non-contributory Objective - Vital Signs/Intake and Output Vital Signs (last 24 hours): Temp Pulse Resp BP Pulse Ox 97.1 F L 90 15 125/81 100 01/04/19 11:46 01/04/19 11:46 01/04/19 11:46 01/04/19 11:46 01/04/19 11:46 Intake and Output: 01/04/19 01/04/19 06:59 18:59 Intake Total 500 Output Total 700 Balance -200 - Medications Medications: Current Medications Acetaminophen (Tylenol 650mg/20.3ml Solution Ud) 650 mg GT Q6 PRN PRN Reason: Temperature Last Admin: 12/31/18 23:00 Dose: 650 mg Enoxaparin Sodium (Lovenox) 30 mg SC DAILY [facility] Last Admin: 01/01/19 09:00 Dose: 30 mg Glimepiride (Amaryl) 4 mg PO ACBD [facility] Last Admin: 01/04/19 08:30 Dose: 4 mg Insulin Human Regular (Novolin R) 0 unit SC [facility]; Protocol Methimazole (Tapazole) 20 mg PO Q8H [facility] Last Admin: 01/04/19 09:33 Dose: 20 mg Pantoprazole Sodium (Protonix Susp) 40 mg PO DAILY [facility] Last Admin: 01/04/19 09:30 Dose: 40 mg Propranolol HCl (Inderal) 30 mg PO Q8H [facility] Last Admin: 01/04/19 10:00 Dose: 30 mg Rosuvastatin Calcium (Crestor) 10 mg PO HS [facility] Last Admin: 01/03/19 21:46 Dose: 10 mg Spironolactone (Aldactone) 50 mg PO DAILY [facility] Last Admin: 01/04/19 09:31 Dose: 50 mg - Labs Labs: 01/04/19 05:47 01/04/19 05:47 PT 14.1 SECONDS (9.7-12.2) H 12/26/18 06:07 INR 1.3 12/26/18 06:07 APTT 32 SECONDS (21-34) 12/26/18 06:07
--- NOTE | 2019-01-04 16:10 | CP.PCM.PN ---
Subjective - Date & Time of Evaluation Date of Evaluation: 01/04/19 Time of Evaluation: 16:09 - Subjective Subjective: Events reviewed Objective - Vital Signs/Intake and Output Vital Signs (last 24 hours): Temp Pulse Resp BP Pulse Ox 99.2 F 108 H 20 111/79 100 01/04/19 15:07 01/04/19 15:07 01/04/19 15:07 01/04/19 15:07 01/04/19 15:07 Intake and Output: 01/04/19 01/04/19 06:59 18:59 Intake Total 500 Output Total 700 Balance -200 - Medications Medications: Current Medications Acetaminophen (Tylenol 650mg/20.3ml Solution Ud) 650 mg GT Q6 PRN PRN Reason: Temperature Last Admin: 12/31/18 23:00 Dose: 650 mg Enoxaparin Sodium (Lovenox) 30 mg SC DAILY [facility] Last Admin: 01/01/19 09:00 Dose: 30 mg Glimepiride (Amaryl) 4 mg PO ACBD [facility] Last Admin: 01/04/19 08:30 Dose: 4 mg Insulin Human Regular (Novolin R) 0 unit SC [facility]; Protocol Methimazole (Tapazole) 20 mg PO Q8H [facility] Last Admin: 01/04/19 09:33 Dose: 20 mg Pantoprazole Sodium (Protonix Susp) 40 mg PO DAILY [facility] Last Admin: 01/04/19 09:30 Dose: 40 mg Propranolol HCl (Inderal) 30 mg PO Q8H [facility] Last Admin: 01/04/19 10:00 Dose: 30 mg Rosuvastatin Calcium (Crestor) 10 mg PO HS [facility] Last Admin: 01/03/19 21:46 Dose: 10 mg Spironolactone (Aldactone) 50 mg PO DAILY [facility] Last Admin: 01/04/19 09:31 Dose: 50 mg - Labs Labs: 01/04/19 05:47 01/04/19 05:47 PT 14.1 SECONDS (9.7-12.2) H 12/26/18 06:07 INR 1.3 12/26/18 06:07 APTT 32 SECONDS (21-34) 12/26/18 06:07 Assessment and Plan - Assessment and Plan (Free Text) Assessment: - Constitutional Appears: No Acute Distress - Head Exam Head Exam: ATRAUMATIC, NORMAL INSPECTION, NORMOCEPHALIC - Eye Exam Eye Exam: Normal appearance. absent: Scleral icterus - ENT Exam ENT Exam: Mucous Membranes Moist, Normal Exam - Neck Exam Neck Exam: Full ROM, Normal Inspection, Thyromegaly - Respiratory Exam Respiratory Exam: Clear to Ausculation Bilateral. absent: Rhonchi, Wheezes - Cardiovascular Exam Cardiovascular Exam: Tachycardia, +S1, +S2. absent: Murmur - GI/Abdominal Exam GI & Abdominal Exam: Soft. absent: Tenderness - Extremities Exam Extremities Exam: Normal Inspection. absent: Calf Tenderness, Pedal Edema - Neurological Exam Neurological Exam: Alert, Awake Assessment and Plan - Assessment and Plan (Free Text) Assessment: Non compliant 48 y/o presented with Thyroid storm and Severe metabolic acidosis with TANVI probably ATN/Shock liver, Hyperkalemia: Acute respiratory failure due to above: requiring intubation Toxic/metobolic encepholopathy Likely metabolic/hypoxemic cardiac arrest manifested as profound bradycardia: requiring CPR to gain ROSC Initial ECHO: directly viewed by me: mod-severe LV dysfunction global hypokinesia LVH RVE and moderate RV dysfunction Mild-mod inc in PASP dilated IVC and reduced compliance c/w inc JVP Mod TR, Mild MR, trace AI Grade 1 diastolic dysfunction PLAN: 48 year old female with respirtory failure now extubated more awake REPEAT ECHO SUGGESTS IMPROVEMENT OF LV FUNCTION TO NEAR NORMAL RANGE WITH IMPROVEMENT IN RV FUNCTION AND SIZE, MILD-MOD PULM HTN NOTED now HTN TANVI IMPROVED: monitor lytes Hyperthyroid on tapazole PLAN INC PROPRANALOL TO 30 Q8 AND TITRATE CONT ALDACTONE
--- NOTE | 2019-01-04 16:15 | CP.PCM.CON ---
History of Present Illness - History of Present Illness History of Present Illness: ? faint layering over R tentorium of absolutely no clical significance NO NRS involvement or further f/u of any sort indicated Past Patient History - Infectious Disease Hx of Infectious Diseases: None - Past Medical History & Family History Past Medical History?: Yes - Past Social History Smoking Status: Never Smoked - CARDIAC Hx Hypertension: Yes - PULMONARY Hx Respiratory Disorders: Yes Hx Asthma: Yes - NEUROLOGICAL Hx Neurological Disorder: No - HEENT Hx HEENT Problems: Yes Other/Comment: uses glasses for reading - RENAL Hx Chronic Kidney Disease: No - ENDOCRINE/METABOLIC Hx Hypothyroidism: Yes - HEMATOLOGICAL/ONCOLOGICAL Hx Cancer: No - INTEGUMENTARY Hx Dermatological Problems: No - MUSCULOSKELETAL/RHEUMATOLOGICAL Hx Musculoskeletal Disorders: Yes Hx Falls: Yes - GASTROINTESTINAL Hx Gastrointestinal Disorders: No - GENITOURINARY/GYNECOLOGICAL Hx Genitourinary Disorders: No - PSYCHIATRIC Hx Psychophysiologic Disorder: Yes Hx Anxiety: Yes - SURGICAL HISTORY Hx Mastectomy: No - ANESTHESIA Hx Anesthesia: No Hx Anesthesia Reactions: No Hx Malignant Hyperthermia: No Has any member of the family had a problem w/ anesthesia?: No Meds Allergies/Adverse Reactions: Allergies Allergy/AdvReac Type Severity Reaction Status Date / Time No Known Allergies Allergy Verified 04/16/16 12:57 - Medications Medications: Current Medications Acetaminophen (Tylenol 650mg/20.3ml Solution Ud) 650 mg GT Q6 PRN PRN Reason: Temperature Last Admin: 12/31/18 23:00 Dose: 650 mg Enoxaparin Sodium (Lovenox) 30 mg SC DAILY [facility] Last Admin: 01/01/19 09:00 Dose: 30 mg Glimepiride (Amaryl) 4 mg PO ACBD [facility] Last Admin: 01/04/19 08:30 Dose: 4 mg Insulin Human Regular (Novolin R) 0 unit SC [facility]; Protocol Methimazole (Tapazole) 20 mg PO Q8H [facility] Last Admin: 01/04/19 09:33 Dose: 20 mg Pantoprazole Sodium (Protonix Susp) 40 mg PO DAILY [facility] Last Admin: 01/04/19 09:30 Dose: 40 mg Propranolol HCl (Inderal) 30 mg PO Q8H [facility] Last Admin: 01/04/19 10:00 Dose: 30 mg Rosuvastatin Calcium (Crestor) 10 mg PO HS [facility] Last Admin: 04/02/19 21:46 Dose: 10 mg Spironolactone (Aldactone) 50 mg PO DAILY [facility] Last Admin: 01/04/19 09:31 Dose: 50 mg Results - Vital Signs Recent Vital Signs: Last Vital Signs Temp 99.2 F 01/04/19 15:07 Pulse 108 H 01/04/19 15:07 Resp 20 01/04/19 15:07 BP 111/79 01/04/19 15:07 Pulse Ox 100 01/04/19 15:07 - Labs Result Diagrams: 01/04/19 05:47 01/04/19 05:47 Labs: Laboratory Results - last 24 hr 01/03/19 01/03/19 01/04/19 16:18 21:08 05:47 WBC RBC Hgb Hct MCV MCH MCHC RDW Plt Count MPV Neut % (Auto) Lymph % (Auto) [place] % (Auto) Eos % (Auto) Baso % (Auto) Neut # (Auto) Lymph # (Auto) [place] # (Auto) Eos # (Auto) Baso # (Auto) Sodium 140 Potassium 3.7 Chloride 105 Carbon Dioxide 28 Anion Gap 11 BUN 22 H Creatinine 0.9 Est GFR ( Amer) > 60 Est GFR (Non-Af Amer) > 60 POC Glucose (mg/dL) 223 H 89 Random Glucose 64 L D Calcium 8.6 Total Bilirubin 0.8 AST 46 H ALT 26 Alkaline Phosphatase 93 Total Protein 6.8 Albumin 3.2 L Globulin 3.6 Albumin/Globulin Ratio 0.9 L Thyroxine (T4) 10.5 TSH 3rd Generation < 0.02 L 01/04/19 01/04/19 01/04/19 05:47 07:22 11:14 WBC 18.8 H RBC 4.66 Hgb 13.2 Hct 40.9 MCV 87.7 MCH 28.4 MCHC 32.3 L RDW 14.0 Plt Count 213 MPV 11.3 Neut % (Auto) 75.2 H Lymph % (Auto) 16.2 L [place] % (Auto) 6.9 Eos % (Auto) 1.4 Baso % (Auto) 0.3 Neut # (Auto) 14.1 H Lymph # (Auto) 3.0 [place] # (Auto) 1.3 H Eos # (Auto) 0.3 Baso # (Auto) 0.1 Sodium Potassium Chloride Carbon Dioxide Anion Gap BUN Creatinine Est GFR ( Amer) Est GFR (Non-Af Amer) POC Glucose (mg/dL) 79 183 H Random Glucose Calcium Total Bilirubin AST ALT Alkaline Phosphatase Total Protein Albumin Globulin Albumin/Globulin Ratio Thyroxine (T4) TSH 3rd Generation
--- NOTE | 2019-01-04 17:26 | CP.PCM.PN ---
Subjective - Date & Time of Evaluation Date of Evaluation: 01/04/19 Time of Evaluation: 07:00 - Subjective Subjective: afeb off antibiotics Objective - Vital Signs/Intake and Output Vital Signs (last 24 hours): Temp Pulse Resp BP Pulse Ox 99.2 F 108 H 20 111/79 100 01/04/19 15:07 01/04/19 15:07 01/04/19 15:07 01/04/19 15:07 01/04/19 15:07 Intake and Output: 01/04/19 01/04/19 06:59 18:59 Intake Total 500 Output Total 700 Balance -200 - Medications Medications: Current Medications Acetaminophen (Tylenol 650mg/20.3ml Solution Ud) 650 mg GT Q6 PRN PRN Reason: Temperature Last Admin: 12/31/18 23:00 Dose: 650 mg Enoxaparin Sodium (Lovenox) 30 mg SC DAILY [facility] Last Admin: 01/01/19 09:00 Dose: 30 mg Glimepiride (Amaryl) 4 mg PO ACBD [facility] Last Admin: 01/04/19 08:30 Dose: 4 mg Insulin Human Regular (Novolin R) 0 unit SC [facility]; Protocol Last Admin: 01/04/19 16:58 Dose: Not Given Methimazole (Tapazole) 20 mg PO Q8H [facility] Last Admin: 01/04/19 09:33 Dose: 20 mg Pantoprazole Sodium (Protonix Susp) 40 mg PO DAILY [facility] Last Admin: 01/04/19 09:30 Dose: 40 mg Propranolol HCl (Inderal) 30 mg PO Q8H [facility] Last Admin: 01/04/19 10:00 Dose: 30 mg Rosuvastatin Calcium (Crestor) 10 mg PO HS [facility] Last Admin: 01/03/19 21:46 Dose: 10 mg Spironolactone (Aldactone) 50 mg PO DAILY [facility] Last Admin: 01/04/19 09:31 Dose: 50 mg - Labs Labs: 01/04/19 05:47 01/04/19 05:47 PT 14.1 SECONDS (9.7-12.2) H 12/26/18 06:07 INR 1.3 12/26/18 06:07 APTT 32 SECONDS (21-34) 12/26/18 06:07 - Constitutional Appears: No Acute Distress, Chronically Ill - Head Exam Head Exam: ATRAUMATIC, NORMAL INSPECTION, NORMOCEPHALIC - Eye Exam Eye Exam: EOMI, Normal appearance, PERRL Pupil Exam: NORMAL ACCOMODATION, PERRL - ENT Exam ENT Exam: Mucous Membranes Moist, Normal Exam - Neck Exam Neck Exam: Full ROM, Normal Inspection. absent: Lymphadenopathy - Respiratory Exam Respiratory Exam: Clear to Ausculation Bilateral, NORMAL BREATHING PATTERN - Cardiovascular Exam Cardiovascular Exam: REGULAR RHYTHM, +S1, +S2. absent: Murmur - GI/Abdominal Exam GI & Abdominal Exam: Soft, Normal Bowel Sounds. absent: Tenderness - Rectal Exam Rectal Exam: Deferred - Exam Exam: NORMAL INSPECTION Speculum exam: NORMAL SPECULUM EXAM Bimanual exam: NORMAL BIMANUAL EXAM - Extremities Exam Extremities Exam: absent: Joint Swelling, Pedal Edema - Neurological Exam Neurological Exam: Alert, Awake, CN II-XII Intact, Normal Gait, Oriented x3 - Psychiatric Exam Psychiatric exam: Normal Affect, Normal Mood - Skin Skin Exam: Dry, Intact, Normal Color, Warm Assessment and Plan (1) Fever Status: Acute (2) TANVI (acute kidney injury) Status: Acute (3) Cardiac arrest Status: Acute (4) Cardiomyopathy Status: Acute (5) Thyrotoxicosis Status: Acute - Assessment and Plan (Free Text) Assessment: observe off antibiotic
--- NOTE | 2019-01-04 17:31 | CP.PCM.PN ---
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 Objective - Vital Signs/Intake and Output Vital Signs (last 24 hours): Temp Pulse Resp BP Pulse Ox 99.2 F 108 H 20 111/79 100 01/04/19 15:07 01/04/19 15:07 01/04/19 15:07 01/04/19 15:07 01/04/19 15:07 Intake and Output: 01/04/19 01/04/19 06:59 18:59 Intake Total 500 Output Total 700 Balance -200 - Medications Medications: Current Medications Acetaminophen (Tylenol 650mg/20.3ml Solution Ud) 650 mg GT Q6 PRN PRN Reason: Temperature Last Admin: 12/31/18 23:00 Dose: 650 mg Enoxaparin Sodium (Lovenox) 30 mg SC DAILY [facility] Last Admin: 01/01/19 09:00 Dose: 30 mg Glimepiride (Amaryl) 4 mg PO ACBD [facility] Last Admin: 01/04/19 08:30 Dose: 4 mg Insulin Human Regular (Novolin R) 0 unit SC [facility]; Protocol Last Admin: 01/04/19 16:58 Dose: Not Given Methimazole (Tapazole) 20 mg PO Q8H [facility] Last Admin: 01/04/19 09:33 Dose: 20 mg Pantoprazole Sodium (Protonix Susp) 40 mg PO DAILY [facility] Last Admin: 01/04/19 09:30 Dose: 40 mg Propranolol HCl (Inderal) 30 mg PO Q8H [facility] Last Admin: 01/04/19 10:00 Dose: 30 mg Rosuvastatin Calcium (Crestor) 10 mg PO HS [facility] Last Admin: 01/03/19 21:46 Dose: 10 mg Spironolactone (Aldactone) 50 mg PO DAILY [facility] Last Admin: 01/04/19 09:31 Dose: 50 mg - Labs Labs: 01/04/19 05:47 01/04/19 05:47 PT 14.1 SECONDS (9.7-12.2) H 12/26/18 06:07 INR 1.3 12/26/18 06:07 APTT 32 SECONDS (21-34) 12/26/18 06:07 - Constitutional Appears: Well - Head Exam Head Exam: ATRAUMATIC, NORMAL INSPECTION, NORMOCEPHALIC - Eye Exam Eye Exam: EOMI, Normal appearance, PERRL Pupil Exam: NORMAL ACCOMODATION, PERRL - ENT Exam ENT Exam: Mucous Membranes Moist, Normal Exam - Neck Exam Neck Exam: Full ROM, Normal Inspection. absent: Lymphadenopathy - Respiratory Exam Respiratory Exam: Decreased Breath Sounds - Cardiovascular Exam Cardiovascular Exam: REGULAR RHYTHM, +S1, +S2 - GI/Abdominal Exam GI & Abdominal Exam: Soft, Diminished Bowel Sounds - Rectal Exam Rectal Exam: Deferred Assessment and Plan - Assessment and Plan (Free Text) Plan: aldactone amaryl crestor inderal lovenox novolin R protonix susp tapazole tylenol 650mg/20.3ml sln ud medications reviewed labs reviewed vitals reviewed
--- NOTE | 2019-01-04 17:57 | PN ---
DATE: 01/04/2019 ENDOCRINOLOGY FOLLOWUP NOTE LOCATION: ICU room 14E. SUBJECTIVE: This is a 62-year-old female with recent overt thyrotoxicosis presenting here with marked hyperthyroidism and supervening acute respiratory failure and since then improved clinically and hemodynamically as noted above. In fact, the patient now has been advanced from a liquid diet to a solid food starting yesterday with remarkable appetite and willingness to partake of the meals. However, the family brought in unhealthy food selections from outside as noted, which the patient gladly partook quickly as noted. Her glycemic levels are actually low normal today as noted with glucose levels ranging from 79 to 89 and 223 mg/dL. LABORATORY DATA: Her chemistries showed a BUN of 22, sodium 140, potassium 3.7, chloride 105, CO2 of 28, glucose 64, and creatinine 0.9. Her repeat thyroxine levels showed a T4 of 10.5 mcg/dL with a TSH of less than 0.02. ASSESSMENT AND PLAN: So at this time, we will actually continue the same medical therapy with Tapazole given as 20 mg every 8 hours as ordered. We will discontinue the Amaryl given as 4 mg 2 times daily as ordered. We will continue the low-dose correction scale using regular insulin as ordered. We will follow and advise accordingly. We will continue the same dose of Tapazole 20 mg every 8 hours as ordered. We will schedule the patient for radioactive iodine ablation to be done on the outpatient when we actually feel we will discontinue her Tapazole as this is a requirement prior to the thyroid scan and uptake procedure to be undertaken. Linda Weaver MD
[2019-01-05 07:54] LABS: BASO % 0.3 % (0.0-2.0); EOS # 0.2 K/uL (0.0-0.7); EOS % 1.4 % (0.0-4.0); HEMOGLOBIN 11.9 g/dL (11.0-16.0); LYMPH # 2.1 K/uL (1.0-4.3); LYMPH % 15.6 % (20.0-40.0); MEAN CELL VOLUME 87.7 fL (81.0-99.0); MEAN CORPUSCULAR HEMOGLOBIN 28.7 pg (27.0-31.0); MEAN CORPUSCULAR HGB CONC 32.7 g/dL (33.0-37.0); MEAN PLATELET VOLUME 10.7 fL (7.2-11.7); MONO # 1.1 K/uL (0.0-0.8); MONO % 7.7 % (0.0-10.0); NEUT # 10.3 K/uL (1.8-7.0); NRBC % 0.1 % (0.0-2.0); RBC 4.13 Mil/uL (3.80-5.20); RED CELL DISTRIBUTION WIDTH 13.9 % (11.5-14.5); WHITE BLOOD COUNT 13.8 K/uL (4.8-10.8)
[2019-01-05 08:26] LABS: ALBUMIN 3.3 g/dL (3.5-5.0); ALT/SGPT 15 U/L (9-52); AST/SGOT 38 U/L (14-36); BLOOD UREA NITROGEN 21 mg/dL (7-17); CALCIUM 8.4 mg/dl (8.6-10.4); GFR NON-AFRICAN AMERICAN > 60
[2019-01-05] MEDS: (Novolin R) Insulin Human Regular 100 units/ml vial SC SCH ×4 (08:47→21:32)
[2019-01-05] MEDS: Pantoprazole 40 mg Susp UD PO SCH (09:31)
[2019-01-05] MEDS ORDERED: Potassium Chloride 20 mEq ER Tab PO ONE (10:00)
--- NOTE | 2019-01-05 10:36 | CP.PCM.PN ---
Subjective - Date & Time of Evaluation Date of Evaluation: 01/05/19 Time of Evaluation: 11:08 - Subjective Subjective: No new complaints heart rate is better Objective - Vital Signs/Intake and Output Vital Signs (last 24 hours): Temp Pulse Resp BP Pulse Ox 98.8 F 88 20 133/81 96 01/05/19 07:05 01/05/19 07:31 01/05/19 07:05 01/05/19 07:05 01/05/19 07:05 Intake and Output: 01/05/19 01/05/19 06:59 18:59 Output Total 750 Balance -750 - Medications Medications: Current Medications Acetaminophen (Tylenol 650mg/20.3ml Solution Ud) 650 mg GT Q6 PRN PRN Reason: Temperature Last Admin: 12/31/18 23:00 Dose: 650 mg Enoxaparin Sodium (Lovenox) 30 mg SC DAILY [facility] Last Admin: 01/01/19 09:00 Dose: 30 mg Glimepiride (Amaryl) 4 mg PO ACBD [facility]S [facility] Last Admin: 01/05/19 09:31 Dose: 4 mg Insulin Human Regular (Novolin R) 0 unit SC [facility] COUNTS [facility]CLUDE 234 BEDS AT THE [facility]; Protocol Last Admin: 01/05/19 08:47 Dose: Not Given Methimazole (Tapazole) 20 mg PO Q8H [facility]S [facility] Last Admin: 01/05/19 09:32 Dose: 20 mg Pantoprazole Sodium (Protonix Susp) 40 mg PO DAILY [facility]S [facility] Last Admin: 01/05/19 09:31 Dose: 40 mg Propranolol HCl (Inderal) 30 mg PO Q8H [facility] 234 [facility]S AT [facility] Last Admin: 01/05/19 10:02 Dose: 30 mg Rosuvastatin Calcium (Crestor) 10 mg PO HS [facility] 234 [facility]S AT [facility] Last Admin: 01/04/19 22:54 Dose: 10 mg Spironolactone (Aldactone) 50 mg PO DAILY [facility]S AT [facility] Last Admin: 01/05/19 09:31 Dose: 50 mg - Labs Labs: 01/05/19 07:40 01/05/19 07:40 PT 14.1 SECONDS (9.7-12.2) H 12/26/18 06:07 INR 1.3 12/26/18 06:07 APTT 32 SECONDS (21-34) 12/26/18 06:07 - Constitutional Appears: No Acute Distress - Eye Exam Eye Exam: Normal appearance. absent: Scleral icterus - Neck Exam Neck Exam: Normal Inspection - Respiratory Exam Respiratory Exam: Clear to Ausculation Bilateral, NORMAL BREATHING PATTERN. absent: Wheezes - Cardiovascular Exam Cardiovascular Exam: REGULAR RHYTHM, +S1, +S2 - GI/Abdominal Exam GI & Abdominal Exam: Soft. absent: Tenderness - Extremities Exam Extremities Exam: absent: Calf Tenderness - Neurological Exam Neurological Exam: Alert, Awake Assessment and Plan - Assessment and Plan (Free Text) Assessment: Non compliant 48 y/o presented with Thyroid storm and Severe metabolic acidosis with TANVI probably ATN/Shock liver, Hyperkalemia: Acute respiratory failure due to above: requiring intubation Toxic/metobolic encepholopathy Likely metabolic/hypoxemic cardiac arrest manifested as profound bradycardia: requiring CPR to gain ROSC Initial ECHO: directly viewed by me: mod-severe LV dysfunction global hypokinesia LVH RVE and moderate RV dysfunction Mild-mod inc in PASP dilated IVC and reduced compliance c/w inc JVP Mod TR, Mild MR, trace AI Grade 1 diastolic dysfunction PLAN: 48 year old female with respirtory failure now extubated more awake REPEAT ECHO SUGGESTS IMPROVEMENT OF LV FUNCTION TO NEAR NORMAL RANGE WITH IMPROVEMENT IN RV FUNCTION AND SIZE, MILD-MOD PULM HTN NOTED now HTN TANVI IMPROVED: monitor lytes Hyperthyroid on tapazole PLAN PROPRANALOL TO 30 Q8 AND TITRATE CONT ALDACTONE
[2019-01-05] MEDS: Magnesium Sulfate 1 gm in D5W 1 GM/100 ML BAG IVPB SCH (13:28)
--- NOTE | 2019-01-05 14:26 | CP.PCM.PN ---
Subjective - Date & Time of Evaluation Date of Evaluation: 01/05/19 Time of Evaluation: 14:23 - Subjective Subjective: Neuro Follow-Up Note: Mrs. Barnhart was evaluated this afternoon. Family present at bedside. Pt states that today she is feeling better than before. She is noticed increased strength during PT session today. Offers no new complaints. She is pending acute rehab. Family is interested in [facility]. Pt currently denies h/a, dizziness, visual changes, chest pain, palpitations, sob, abd pain, n/v/d, paresthesias, fever/chills. Objective - Vital Signs/Intake and Output Vital Signs (last 24 hours): Temp Pulse Resp BP Pulse Ox 98.8 F 88 20 133/81 96 01/05/19 07:05 01/05/19 07:31 01/05/19 07:05 01/05/19 07:05 01/05/19 07:05 Intake and Output: 01/05/19 01/05/19 06:59 18:59 Output Total 750 Balance -750 - Medications Medications: Current Medications Acetaminophen (Tylenol 650mg/20.3ml Solution Ud) 650 mg GT Q6 PRN PRN Reason: Temperature Last Admin: 12/31/18 23:00 Dose: 650 mg Enoxaparin Sodium (Lovenox) 30 mg SC DAILY [facility] Last Admin: 01/01/19 09:00 Dose: 30 mg Insulin Human Regular (Novolin R) 0 unit SC [facility]; Protocol Last Admin: 01/05/19 13:30 Dose: Not Given Magnesium Oxide (Mag-Ox) 400 mg PO BID [facility] Methimazole (Tapazole) 20 mg PO Q8H [facility] Last Admin: 01/05/19 09:32 Dose: 20 mg Pantoprazole Sodium (Protonix Susp) 40 mg PO DAILY [facility] Last Admin: 01/05/19 09:31 Dose: 40 mg Propranolol HCl (Inderal) 30 mg PO Q8H [facility] Last Admin: 01/05/19 10:02 Dose: 30 mg Rosuvastatin Calcium (Crestor) 10 mg PO HS [facility] Last Admin: 01/04/19 22:54 Dose: 10 mg Spironolactone (Aldactone) 50 mg PO DAILY [facility] Last Admin: 01/05/19 09:31 Dose: 50 mg - Labs Labs: 01/05/19 07:40 01/05/19 07:40 PT 14.1 SECONDS (9.7-12.2) H 12/26/18 06:07 INR 1.3 12/26/18 06:07 APTT 32 SECONDS (21-34) 12/26/18 06:07 - Constitutional Appears: Well, Non-toxic, No Acute Distress - Head Exam Head Exam: ATRAUMATIC, NORMAL INSPECTION, NORMOCEPHALIC - Eye Exam Eye Exam: EOMI, PERRL. absent: Nystagmus Pupil Exam: NORMAL ACCOMODATION, PERRL Additional comments: b/l exophthalmos - ENT Exam ENT Exam: Mucous Membranes Moist - Neck Exam Neck Exam: Full ROM - Respiratory Exam Respiratory Exam: NORMAL BREATHING PATTERN - Extremities Exam Extremities Exam: absent: Calf Tenderness, Pedal Edema Additional comments: Able to move all extremities, still has generalized weakness 2/2 deconditioning though improving. 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 Reflexes brisk b/l No sensory deficits No tremors or abnormal movements - Psychiatric Exam Psychiatric exam: Normal Affect, Normal Mood - Skin Skin Exam: Normal Color Assessment and Plan (1) Anoxic brain injury Assessment & Plan: Imaging reviewed: -CT head (01/02/19): 1. Small layering subdural hematoma along the right tentorium cerebelli. 2. No CT evidence for left parietal convexity subdural hematoma. -MRI Brain (12/31/18): There is small amount of extra-axial fluid demonstrate hyperintense T1 signal noted in the right posterior fossa and left posterior parietal region suspicious for subdural hematoma. Further evaluation by CT of the head is suggested. No evidence of acute infarction mass effect or midline shift. Mild volume loss. -Neurosurgery, Dr. Zhu, for SDH noted on CT Head---no further intervention. -Repeat non-contrast CT Head to re-eval SDH---will f/u with results. If no change then we will sign off. -Continue to hold AC and anti-platelet. -SCDs for DVT ppx. -Continue current treatment. -Continue PT/OT; rehab upon d/c. -Notify neuro of any acute changes. Kathleen Plata DNP, CHIEF OPERATOR [employer]DROFORMER D/W Dr. Babb Status: Acute
--- NOTE | 2019-01-05 14:39 | CP.PCM.PN ---
Subjective - Date & Time of Evaluation Date of Evaluation: 01/05/19 Time of Evaluation: 11:00 - Subjective Subjective: Nephrology Consultation Note: Assessment: stable Non-oliguric Acute Kidney Injury (N17.9) likely due to renal hypoperfusion due to cardiac arrest/hypotension leading to ATN, had exposure to IV contrast in addition: IMPROVED uncontrolled severe HTN, with shock hypokalemia, hyperkalemia, HAGMA/lactic acidosis hypernatremia hypertension (years) obesity hyperthyroidism thyroid storm, cardiac arrest s/p resuscitation BiV failure with LVEF 15%, sepsis hypomagnesemia Plan No acute need for renal replacement therapy at this time. Hypertension control with meds as ordered. Maintain hemodynamics stable. Avoid hypotension. continue with RAAS maggy. continue with rate control meds as beta blockers Monitor Input/Output, daily weights and renal function with basic metabolic panel supplement lytes as needed endocrine and cardiology following ordered for Mag Dose meds/antibiotics for improved GFR >60. Glycemic control Further work up/management as per primary team Thanks for allowing me to participate in care of your patient. Will follow patient with you. Please call if any Qs. had d/w team Dr Darshan Call Office: [phone] Chief Complaint; unable Reason for consult: Acute Kidney Injury HPI: Pt is a 48 F with hx of hypertension (years) obesity hyperthyroidism presented with complaints of pain abdomen and found to have thyroid storm, cardiac arrest s/p resuscitation, foudn to have BiV failure with LVEF 15%, sepsis and also with TANVI hence renal consulted no known OTC/herbal meds or NSAIDs Noted recent iodinated contrast exposure as CTA. Noted obvious episodes of low BP. ROS: pt feels better. able to eat. denies Cp/SOB Physical Examination: General Appearance: Comfortable, in no acute respiratory distress, better appearing Vitals reviewed and noted as below Head; Atraumatic, normocephalic ENT: no ulcers no thrush. Tongue is midline. Oropharynx: no rash or ulcers. EYES: Pupils are equal, round and sluggish to light accommodation. Eye muscles and extraocular movement intact. Sclera is anicteric. Neck; supple no lymphadenopathy, gross thyromegaly noted Lungs: Normal respiratory rate/effort. Breath sounds b/l improving Heart: Improvedd rate. s1s2 normal. No rub or gallop. Extremities: no edema. No varicose veins Neurological: Patient is awake alert and follow commands. communicative Skin: Warm and dry. Normal turgor. No rash. Palpitation: Normal elasticity for age Abdomen: Abdomen is soft. Bowel sounds +. There is no abdominal tenderness, no guarding/rigidity no organomegaly Psych: limited insight. normal affect MSK: no joint tenderness or swelling. Digits and nails normal, no deformity : kidney or bladder not palpable Labs/imaging reviewed. Past medical history, past surgical history, family history, social history, allergy reviewed and noted as below Family hx: no hx of CKD. Rest non-contributory Objective - Vital Signs/Intake and Output Vital Signs (last 24 hours): Temp Pulse Resp BP Pulse Ox 98.8 F 88 20 133/81 96 01/05/19 07:05 01/05/19 07:31 01/05/19 07:05 01/05/19 07:05 01/05/19 07:05 Intake and Output: 01/05/19 01/05/19 06:59 18:59 Output Total 750 Balance -750 - Medications Medications: Current Medications Acetaminophen (Tylenol 650mg/20.3ml Solution Ud) 650 mg GT Q6 PRN PRN Reason: Temperature Last Admin: 12/31/18 23:00 Dose: 650 mg Enoxaparin Sodium (Lovenox) 30 mg SC DAILY [facility] Last Admin: 01/01/19 09:00 Dose: 30 mg Insulin Human Regular (Novolin R) 0 unit SC [facility]; Protocol Last Admin: 01/05/19 13:30 Dose: Not Given Magnesium Oxide (Mag-Ox) 400 mg PO BID [facility] Methimazole (Tapazole) 20 mg PO Q8H [facility] Last Admin: 01/05/19 09:32 Dose: 20 mg Pantoprazole Sodium (Protonix Susp) 40 mg PO DAILY [facility] Last Admin: 01/05/19 09:31 Dose: 40 mg Propranolol HCl (Inderal) 30 mg PO Q8H [facility] Last Admin: 01/05/19 10:02 Dose: 30 mg Rosuvastatin Calcium (Crestor) 10 mg PO HS [facility] Last Admin: 01/04/19 22:54 Dose: 10 mg Spironolactone (Aldactone) 50 mg PO DAILY [facility] Last Admin: 01/05/19 09:31 Dose: 50 mg - Labs Labs: 01/05/19 07:40 01/05/19 07:40 PT 14.1 SECONDS (9.7-12.2) H 12/26/18 06:07 INR 1.3 12/26/18 06:07 APTT 32 SECONDS (21-34) 12/26/18 06:07
--- NOTE | 2019-01-05 15:01 | CP.PCM.PN ---
Subjective - Date & Time of Evaluation Date of Evaluation: 01/05/19 Time of Evaluation: 10:35 - Subjective Subjective: patient seen today no nausea no vomiting no dizziness no diarrhea sister estefany bedside possible discharge tomrrow Objective - Vital Signs/Intake and Output Vital Signs (last 24 hours): Temp Pulse Resp BP Pulse Ox 98.8 F 88 20 133/81 96 01/05/19 07:05 01/05/19 07:31 01/05/19 07:05 01/05/19 07:05 01/05/19 07:05 Intake and Output: 01/05/19 01/05/19 06:59 18:59 Output Total 750 Balance -750 - Medications Medications: Current Medications Acetaminophen (Tylenol 650mg/20.3ml Solution Ud) 650 mg GT Q6 PRN PRN Reason: Temperature Last Admin: 12/31/18 23:00 Dose: 650 mg Enoxaparin Sodium (Lovenox) 30 mg SC DAILY [facility] Last Admin: 01/01/19 09:00 Dose: 30 mg Insulin Human Regular (Novolin R) 0 unit SC [facility]; Protocol Last Admin: 01/05/19 13:30 Dose: Not Given Magnesium Oxide (Mag-Ox) 400 mg PO BID [facility] Methimazole (Tapazole) 20 mg PO Q8H [facility] Last Admin: 01/05/19 09:32 Dose: 20 mg Pantoprazole Sodium (Protonix Susp) 40 mg PO DAILY [facility] Last Admin: 01/05/19 09:31 Dose: 40 mg Propranolol HCl (Inderal) 30 mg PO Q8H [facility] Last Admin: 01/05/19 10:02 Dose: 30 mg Rosuvastatin Calcium (Crestor) 10 mg PO HS [facility] Last Admin: 01/04/19 22:54 Dose: 10 mg Spironolactone (Aldactone) 50 mg PO DAILY [facility] Last Admin: 01/05/19 09:31 Dose: 50 mg - Labs Labs: 01/05/19 07:40 01/05/19 07:40 PT 14.1 SECONDS (9.7-12.2) H 12/26/18 06:07 INR 1.3 12/26/18 06:07 APTT 32 SECONDS (21-34) 12/26/18 06:07 - Constitutional Appears: Well - Head Exam Head Exam: ATRAUMATIC, NORMAL INSPECTION, NORMOCEPHALIC - Eye Exam Eye Exam: EOMI, Normal appearance, PERRL Pupil Exam: NORMAL ACCOMODATION, PERRL - ENT Exam ENT Exam: Mucous Membranes Moist, Normal Exam - Neck Exam Neck Exam: Full ROM, Normal Inspection. absent: Lymphadenopathy - Respiratory Exam Respiratory Exam: Decreased Breath Sounds - Cardiovascular Exam Cardiovascular Exam: REGULAR RHYTHM, +S1, +S2 - GI/Abdominal Exam GI & Abdominal Exam: Soft, Diminished Bowel Sounds - Rectal Exam Rectal Exam: Deferred Assessment and Plan (1) TANVI (acute kidney injury) Status: Acute (2) Abdominal pain Status: Acute (3) Cardiac arrest Status: Acute (4) Cardiomyopathy Status: Acute (5) Dysphagia Status: Acute (6) Fever Status: Acute (7) Headache Status: Acute (8) Moderate pulmonary arterial systolic hypertension Status: Acute (9) Nausea Status: Acute (10) Sinus tachycardia Status: Acute (11) Thyrotoxicosis Status: Acute (12) Bronchitis Status: Acute (13) Chest pain Status: Acute (14) Dental caries Status: Acute (15) Diarrhea Status: Acute (16) Hypertension Status: Acute (17) Hyperthyroidism Status: Acute (18) Hypokalemia Status: Acute - Assessment and Plan (Free Text) Plan: medications reviewed labs reviewed vitals reviewed aldactone crestor inderal k-dur 20meq er tab lovenox mag-ox novolin R protnix susp tampazole tylenol 650mg/20.3ml sln ud pt encourage to eat pt family made awre about all detailed discussed with siter as met in person for first time adn i spoke to her on phone in the past.. followup with consultations
--- NOTE | 2019-01-05 16:00 | CT ---
Date of service: 01/05/2019 PROCEDURE: CT HEAD WITHOUT CONTRAST. HISTORY: re-eval SDH COMPARISON: None available. TECHNIQUE: Axial computed tomography images were obtained through the head/brain without intravenous contrast. Radiation dose: Total exam DLP = 1006.61 mGy-cm. This CT exam was performed using one or more of the following dose reduction techniques: Automated exposure control, adjustment of the mA and/or kV according to patient size, and/or use of iterative reconstruction technique. FINDINGS: HEMORRHAGE: Stable minimal right tentorium cerebelli subdural hematoma with no new intracranial hematoma appreciable. No mass effect. BRAIN: Stable otherwise unremarkable intracranial parenchyma above and below the tentorium including the brainstem. Partially calcified anterior falx stable. VENTRICLES: Unremarkable. No hydrocephalus. CALVARIUM: Unremarkable. PARANASAL SINUSES: Unremarkable as visualized. No significant inflammatory changes. MASTOID AIR CELLS: Unremarkable as visualized. No inflammatory changes. OTHER FINDINGS: None. IMPRESSION: Stable minimal right tentorium cerebelli subdural hematoma. No significant mass effect or new intracranial hemorrhage.
--- NOTE | 2019-01-05 17:06 | PN ---
DATE: 01/05/2019 ENDOCRINOLOGY FOLLOWUP NOTE LOCATION: Room 662. SUBJECTIVE: This is a 48-year-old female with recent overt thyrotoxicosis, presenting here with marked hyperthyroidism and developing acute cardiorespiratory arrest and since then been successfully extubated and currently tolerating even the solid food as given over the last two days or so with this hospital stay. She remains clinically euthyroid at this time and the repeat thyroid studies showed a T4 of 10.5 mcg/dL with a TSH of less than 0.02 as noted. The TSH suppression can remain for the next six months or longer, until the patient is clinically and boichemically euthyroid for a few months at this time. But she has remarkable metabolic recovery and improvement from the high dose medical therapy given for hyperthyroidism as noted. LABORATORY DATA: Her latest chemistry showed a BUN of 21, sodium 139, potassium 3.4, chloride 103, CO2 of 32, glucose 105 and creatinine 0.9. ASSESSMENT AND PLAN: So at this time, we will actually discontinue her Amaryl and observe her metabolic response to her glycemic fluctuations thereof. We will continue the Tapazole given as 20 mg every 8 hours as ordered and we will repeat the thyroid studies and adjust her dose regimen accordingly. Linda Weaver MD
[2019-01-05] MEDS: Potassium Chloride 20 mEq ER Tab PO SCH (17:18)
[2019-01-05] MEDS: Magnesium Oxide 400 mg Tab UD PO SCH (18:18)
--- NOTE | 2019-01-05 22:36 | CP.PCM.PN ---
Subjective - Date & Time of Evaluation Date of Evaluation: 01/05/19 Time of Evaluation: 08:00 - Subjective Subjective: awake alert afebrile Objective - Vital Signs/Intake and Output Vital Signs (last 24 hours): Temp Pulse Resp BP Pulse Ox 98.9 F 104 H 20 112/78 99 01/05/19 15:45 01/05/19 16:00 01/05/19 15:45 01/05/19 15:45 01/05/19 15:45 - Medications Medications: Current Medications Acetaminophen (Tylenol 650mg/20.3ml Solution Ud) 650 mg GT Q6 PRN PRN Reason: Temperature Last Admin: 12/31/18 23:00 Dose: 650 mg Enoxaparin Sodium (Lovenox) 30 mg SC DAILY [facility] Last Admin: 01/01/19 09:00 Dose: 30 mg Insulin Human Regular (Novolin R) 0 unit SC [facility]; Protocol Last Admin: 01/05/19 21:32 Dose: Not Given Magnesium Oxide (Mag-Ox) 400 mg PO BID [facility] Last Admin: 01/05/19 18:18 Dose: 400 mg Methimazole (Tapazole) 20 mg PO Q8H [facility] Last Admin: 01/05/19 18:18 Dose: 20 mg Pantoprazole Sodium (Protonix Susp) 40 mg PO DAILY [facility] Last Admin: 01/05/19 09:31 Dose: 40 mg Potassium Chloride (K-Dur 20 Meq Er Tab) 40 meq PO BRK [facility] Last Admin: 01/05/19 17:18 Dose: 40 meq Propranolol HCl (Inderal) 30 mg PO Q8H [facility] Last Admin: 01/05/19 18:18 Dose: 30 mg Rosuvastatin Calcium (Crestor) 10 mg PO HS [facility] Last Admin: 01/05/19 21:15 Dose: 10 mg Spironolactone (Aldactone) 50 mg PO DAILY [facility] Last Admin: 01/05/19 09:31 Dose: 50 mg - Labs Labs: 01/05/19 07:40 01/05/19 07:40 PT 14.1 SECONDS (9.7-12.2) H 12/26/18 06:07 INR 1.3 12/26/18 06:07 APTT 32 SECONDS (21-34) 12/26/18 06:07 - Constitutional Appears: Non-toxic, No Acute Distress, Chronically Ill - Head Exam Head Exam: ATRAUMATIC, NORMAL INSPECTION, NORMOCEPHALIC - Eye Exam Eye Exam: EOMI, Normal appearance, PERRL Pupil Exam: NORMAL ACCOMODATION, PERRL - ENT Exam ENT Exam: Mucous Membranes Moist, Normal Exam - Neck Exam Neck Exam: Full ROM, Normal Inspection. absent: Lymphadenopathy - Respiratory Exam Respiratory Exam: Clear to Ausculation Bilateral, NORMAL BREATHING PATTERN - Cardiovascular Exam Cardiovascular Exam: REGULAR RHYTHM, +S1, +S2. absent: Murmur - GI/Abdominal Exam GI & Abdominal Exam: Soft, Normal Bowel Sounds. absent: Tenderness - Rectal Exam Rectal Exam: Deferred - Exam Exam: NORMAL INSPECTION - Extremities Exam Extremities Exam: Full ROM, Normal Capillary Refill, Normal Inspection. absent: Joint Swelling, Pedal Edema - Back Exam Back Exam: NORMAL INSPECTION - Neurological Exam Neurological Exam: Alert, Awake, CN II-XII Intact, Normal Gait, Oriented x3 - Psychiatric Exam Psychiatric exam: Normal Affect, Normal Mood - Skin Skin Exam: Dry, Intact, Normal Color, Warm Assessment and Plan (1) Fever Status: Acute (2) TANVI (acute kidney injury) Status: Acute (3) Cardiac arrest Status: Acute (4) Cardiomyopathy Status: Acute (5) Thyrotoxicosis Status: Acute - Assessment and Plan (Free Text) Assessment: no new positive cultures WBC trending down
[2019-01-06] MEDS: (Novolin R) Insulin Human Regular 100 units/ml vial SC SCH ×5 (08:09→22:44)
[2019-01-06 08:16] LABS: BASO # 0.1 K/uL (0.0-0.2); BASO % 0.6 % (0.0-2.0); EOS # 0.2 K/uL (0.0-0.7); EOS % 1.4 % (0.0-4.0); HEMOGLOBIN 12.8 g/dL (11.0-16.0); LYMPH # 2.4 K/uL (1.0-4.3); LYMPH % 19.9 % (20.0-40.0); MEAN CELL VOLUME 87.7 fL (81.0-99.0); MEAN CORPUSCULAR HEMOGLOBIN 29.2 pg (27.0-31.0); MEAN CORPUSCULAR HGB CONC 33.3 g/dL (33.0-37.0); MEAN PLATELET VOLUME 10.1 fL (7.2-11.7); MONO # 0.8 K/uL (0.0-0.8); MONO % 6.8 % (0.0-10.0); NEUT # 8.4 K/uL (1.8-7.0); NEUT % 71.3 % (50.0-75.0); RBC 4.37 Mil/uL (3.80-5.20); RED CELL DISTRIBUTION WIDTH 13.9 % (11.5-14.5); WHITE BLOOD COUNT 11.8 K/uL (4.8-10.8)
[2019-01-06 08:31] LABS: ALB/GLOB RATIO 0.9 (1.0-2.1); ALBUMIN 3.6 g/dL (3.5-5.0); ALT/SGPT 15 U/L (9-52); AST/SGOT 36 U/L (14-36); BLOOD UREA NITROGEN 16 mg/dL (7-17); CALCIUM 9.2 mg/dl (8.6-10.4); GFR NON-AFRICAN AMERICAN > 60
[2019-01-06] MEDS: Magnesium Oxide 400 mg Tab UD PO SCH ×2 (10:30→18:17)
[2019-01-06] MEDS: Potassium Chloride 20 mEq ER Tab PO SCH (10:30)
[2019-01-06] MEDS: Pantoprazole 40 mg Susp UD PO SCH (10:30)
--- NOTE | 2019-01-06 10:43 | CP.PCM.PN ---
Subjective - Date & Time of Evaluation Date of Evaluation: 01/06/19 Time of Evaluation: 10:43 - Subjective Subjective: Neuro Follow-Up Note: Mrs. Barnhart was evaluated this afternoon with family present at bedside. Pt states that today she feels good. She verbalizes being able to ambulate around the nursing unit with PT today. She is still pending arrangements to be made for acute rehab ([facility]). Pt currently denies h/a, dizziness, visual changes, chest pain, palpitations, sob, abd pain, n/v/d, paresthesias, fever/chills. Objective - Vital Signs/Intake and Output Vital Signs (last 24 hours): Temp Pulse Resp BP Pulse Ox 97.5 F L 96 H 20 125/83 100 01/06/19 07:10 01/06/19 08:45 01/06/19 07:10 01/06/19 07:10 01/06/19 07:10 Intake and Output: 01/06/19 01/06/19 06:59 18:59 Intake Total 480 Output Total 1550 Balance -1070 - Medications Medications: Current Medications Acetaminophen (Tylenol 650mg/20.3ml Solution Ud) 650 mg GT Q6 PRN PRN Reason: Temperature Last Admin: 12/31/18 23:00 Dose: 650 mg Enoxaparin Sodium (Lovenox) 30 mg SC DAILY [facility] Last Admin: 01/01/19 09:00 Dose: 30 mg Insulin Human Regular (Novolin R) 0 unit SC [facility]; Protocol Last Admin: 01/06/19 08:09 Dose: Not Given Magnesium Oxide (Mag-Ox) 400 mg PO BID [facility] Last Admin: 01/06/19 10:30 Dose: 400 mg Methimazole (Tapazole) 20 mg PO Q8H [facility] Last Admin: 01/06/19 10:31 Dose: 20 mg Pantoprazole Sodium (Protonix Susp) 40 mg PO DAILY [facility] Last Admin: 01/06/19 10:30 Dose: 40 mg Potassium Chloride (K-Dur 20 Meq Er Tab) 40 meq PO BRK [facility] Last Admin: 01/06/19 10:30 Dose: 40 meq Propranolol HCl (Inderal) 30 mg PO Q8H [facility] Last Admin: 01/06/19 02:29 Dose: 30 mg Rosuvastatin Calcium (Crestor) 10 mg PO HS [facility] Last Admin: 01/05/19 21:15 Dose: 10 mg Spironolactone (Aldactone) 50 mg PO DAILY [facility] Last Admin: 01/06/19 10:30 Dose: 50 mg - Labs Labs: 01/06/19 08:07 01/06/19 08:07 PT 14.1 SECONDS (9.7-12.2) H 12/26/18 06:07 INR 1.3 12/26/18 06:07 APTT 32 SECONDS (21-34) 12/26/18 06:07 - Constitutional Appears: Well, Non-toxic, No Acute Distress - Head Exam Head Exam: ATRAUMATIC, NORMAL INSPECTION, NORMOCEPHALIC - Eye Exam Eye Exam: EOMI, PERRL Pupil Exam: NORMAL ACCOMODATION, PERRL Additional comments: b/l exophthalmos - ENT Exam ENT Exam: Mucous Membranes Moist - Neck Exam Neck Exam: Full ROM, Normal Inspection - Respiratory Exam Respiratory Exam: NORMAL BREATHING PATTERN - Extremities Exam Extremities Exam: Full ROM. absent: Calf Tenderness, Pedal Edema Additional comments: Able to move all extremities, still has generalized weakness 2/2 deconditioning though improving. - Neurological Exam Neurological Exam: Alert, Awake, CN II-XII Intact, Oriented x3, Reflexes Normal Neuro motor strength exam: Left Upper Extremity: 4, Right Upper Extremity: 4, Left Lower Extremity: 4, Right Lower Extremity: 4 Additional comments: Speech clear, fluid Able to move all extremities w generalized weakness 2/2 deconditioning (improving). Reflexes brisk b/l No sensory deficits No tremors or abnormal movements - Psychiatric Exam Psychiatric exam: Normal Affect, Normal Mood - Skin Skin Exam: Normal Color Assessment and Plan (1) Anoxic brain injury Assessment & Plan: Imaging reviewed: -CT Head (01/05/19): Stable minimal right tentorium cerebelli subdural hematoma. No significant mass effect or new intracranial hemorrhage. -CT Head (01/02/19): 1. Small layering subdural hematoma along the right tentorium cerebelli. 2. No CT evidence for left parietal convexity subdural hematoma. -MRI Brain (12/31/18): There is small amount of extra-axial fluid demonstrate hyperintense T1 signal noted in the right posterior fossa and left posterior parietal region suspicious for subdural hematoma. Further evaluation by CT of the head is suggested. No evidence of acute infarction mass effect or midline shift. Mild volume loss. -Neurosurgery, Dr. Zhu, for SDH noted on CT Head---no further intervention. -Continue to hold AC and anti-platelet. -SCDs for DVT ppx. -Continue current treatment. -Continue PT/OT; rehab upon d/c. -Notify neuro of any acute changes. No changes to SDH on CT Head. No further neuro recommendations. Reconsult prn. Thank you for this consultation. Kathleen Plata, DNP, [employer] SPECIALIST D/W Dr. Gill Status: Acute
--- NOTE | 2019-01-06 13:52 | CP.PCM.PN ---
Subjective - Date & Time of Evaluation Date of Evaluation: 01/06/19 Time of Evaluation: 13:52 - Subjective Subjective: No new complaints No acute distress No volume overload No fevers/chills Objective - Vital Signs/Intake and Output Vital Signs (last 24 hours): Temp Pulse Resp BP Pulse Ox 97.5 F L 96 H 20 125/83 100 01/06/19 07:10 01/06/19 08:45 01/06/19 07:10 01/06/19 07:10 01/06/19 07:10 Intake and Output: 01/06/19 01/06/19 06:59 18:59 Intake Total 480 Output Total 1550 Balance -1070 - Medications Medications: Current Medications Acetaminophen (Tylenol 650mg/20.3ml Solution Ud) 650 mg GT Q6 PRN PRN Reason: Temperature Last Admin: 12/31/18 23:00 Dose: 650 mg Enoxaparin Sodium (Lovenox) 30 mg SC DAILY [facility] Last Admin: 01/01/19 09:00 Dose: 30 mg Insulin Human Regular (Novolin R) 0 unit SC [facility]; Protocol Last Admin: 01/06/19 08:09 Dose: Not Given Magnesium Oxide (Mag-Ox) 400 mg PO BID [facility] Last Admin: 01/06/19 10:30 Dose: 400 mg Methimazole (Tapazole) 20 mg PO Q8H [facility] Last Admin: 01/06/19 10:31 Dose: 20 mg Pantoprazole Sodium (Protonix Susp) 40 mg PO DAILY [facility] Last Admin: 01/06/19 10:30 Dose: 40 mg Potassium Chloride (K-Dur 20 Meq Er Tab) 40 meq PO BRK [facility] Last Admin: 01/06/19 10:30 Dose: 40 meq Propranolol HCl (Inderal) 30 mg PO Q8H [facility] Last Admin: 01/06/19 02:29 Dose: 30 mg Rosuvastatin Calcium (Crestor) 10 mg PO HS [facility] Last Admin: 01/05/19 21:15 Dose: 10 mg Spironolactone (Aldactone) 50 mg PO DAILY [facility] Last Admin: 01/06/19 10:30 Dose: 50 mg - Labs Labs: 01/06/19 08:07 01/06/19 08:07 PT 14.1 SECONDS (9.7-12.2) H 12/26/18 06:07 INR 1.3 12/26/18 06:07 APTT 32 SECONDS (21-34) 12/26/18 06:07 - Constitutional Appears: No Acute Distress - Head Exam Head Exam: ATRAUMATIC, NORMAL INSPECTION, NORMOCEPHALIC - Eye Exam Eye Exam: EOMI, Normal appearance. absent: Scleral icterus - ENT Exam ENT Exam: Mucous Membranes Moist - Neck Exam Neck Exam: Full ROM, Normal Inspection - Respiratory Exam Respiratory Exam: absent: Clear to Ausculation Bilateral (scattered basiler crep) - Cardiovascular Exam Cardiovascular Exam: REGULAR RHYTHM, +S1, +S2 - GI/Abdominal Exam GI & Abdominal Exam: Soft, Tenderness - Extremities Exam Extremities Exam: absent: Calf Tenderness, Pedal Edema - Neurological Exam Neurological Exam: Alert, Awake Assessment and Plan - Assessment and Plan (Free Text) Assessment: Non compliant 48 y/o presented with Thyroid storm and Severe metabolic acidosis with TANVI probably ATN/Shock liver, Hyperkalemia: Acute respiratory failure due to above: requiring intubation Toxic/metobolic encepholopathy Likely metabolic/hypoxemic cardiac arrest manifested as profound bradycardia: requiring CPR to gain ROSC CT head 01/05/19: stable R. subdural hematoma Initial ECHO: directly viewed by me: mod-severe LV dysfunction global hypokinesia LVH RVE and moderate RV dysfunction Mild-mod inc in PASP dilated IVC and reduced compliance c/w inc JVP Mod TR, Mild MR, trace AI Grade 1 diastolic dysfunction PLAN: 48 year old female with respirtory failure now extubated more awake REPEAT ECHO SUGGESTS IMPROVEMENT OF LV FUNCTION TO NEAR NORMAL RANGE WITH IMPROVEMENT IN RV FUNCTION AND SIZE, MILD-MOD PULM HTN NOTED now HTN TANVI IMPROVED: monitor lytes Hyperthyroid on tapazole PLAN PROPRANALOL TO 30 Q8 AND TITRATE: Pulses improved to normal ranges CONT ALDACTONE
--- NOTE | 2019-01-06 14:22 | CP.PCM.PN ---
Subjective - Date & Time of Evaluation Date of Evaluation: 01/06/19 Time of Evaluation: 14:21 - Subjective Subjective: Nephrology Consultation Note: Assessment: stable Non-oliguric Acute Kidney Injury (N17.9) likely due to renal hypoperfusion due to cardiac arrest/hypotension leading to ATN, had exposure to IV contrast in addition: IMPROVED uncontrolled severe HTN, with shock hypokalemia, hyperkalemia, HAGMA/lactic acidosis hypernatremia hypertension (years) obesity hyperthyroidism thyroid storm, cardiac arrest s/p resuscitation BiV failure with LVEF 15%, sepsis hypomagnesemia Plan No acute need for renal replacement therapy at this time. Hypertension control with meds as ordered. Maintain hemodynamics stable. Avoid hypotension. continue with RAAS maggy as aldactone. continue with rate control meds as beta blockers Monitor Input/Output, daily weights and renal function with basic metabolic panel supplement lytes as needed endocrine and cardiology following Dose meds/antibiotics for improved GFR >60. Glycemic control Further work up/management as per primary team pt for d/c to [facility] soon. stable from renal perspective Thanks for allowing me to participate in care of your patient. Will follow patient with you. Please call if any Qs. had d/w team Dr Darshan Call Office: [phone] Chief Complaint; unable Reason for consult: Acute Kidney Injury HPI: Pt is a 48 F with hx of hypertension (years) obesity hyperthyroidism presented with complaints of pain abdomen and found to have thyroid storm, cardiac arrest s/p resuscitation, foudn to have BiV failure with LVEF 15%, sepsis and also with TAVNI hence renal consulted no known OTC/herbal meds or NSAIDs Noted recent iodinated contrast exposure as CTA. Noted obvious episodes of low BP. ROS: pt feels better. able to eat. denies Cp/SOB Physical Examination: General Appearance: Comfortable, in no acute respiratory distress, better ap pearing Vitals reviewed and noted as below Head; Atraumatic, normocephalic ENT: no ulcers no thrush. Tongue is midline. Oropharynx: no rash or ulcers. EYES: Pupils are equal, round and sluggish to light accommodation. Eye muscles and extraocular movement intact. Sclera is anicteric. Neck; supple no lymphadenopathy, gross thyromegaly noted Lungs: Normal respiratory rate/effort. Breath sounds b/l improving Heart: Improved rate. s1s2 normal. No rub or gallop. Extremities: no edema. No varicose veins Neurological: Patient is awake alert and follow commands. communicative Skin: Warm and dry. Normal turgor. No rash. Palpitation: Normal elasticity for age Abdomen: Abdomen is soft. Bowel sounds +. There is no abdominal tenderness, no guarding/rigidity no organomegaly Psych: limited insight. normal affect MSK: no joint tenderness or swelling. Digits and nails normal, no deformity : kidney or bladder not palpable Labs/imaging reviewed. Past medical history, past surgical history, family history, social history, allergy reviewed and noted as below Family hx: no hx of CKD. Rest non-contributory Objective - Vital Signs/Intake and Output Vital Signs (last 24 hours): Temp Pulse Resp BP Pulse Ox 97.5 F L 96 H 20 125/83 100 01/06/19 07:10 01/06/19 08:45 01/06/19 07:10 01/06/19 07:10 01/06/19 07:10 Intake and Output: 01/06/19 01/06/19 06:59 18:59 Intake Total 480 Output Total 1550 Balance -1070 - Medications Medications: Current Medications Acetaminophen (Tylenol 650mg/20.3ml Solution Ud) 650 mg GT Q6 PRN PRN Reason: Temperature Last Admin: 12/31/18 23:00 Dose: 650 mg Enoxaparin Sodium (Lovenox) 30 mg SC DAILY [facility] Last Admin: 01/01/19 09:00 Dose: 30 mg Insulin Human Regular (Novolin R) 0 unit SC [facility]; Protocol Last Admin: 01/06/19 14:01 Dose: Not Given Magnesium Oxide (Mag-Ox) 400 mg PO BID [facility] Last Admin: 01/06/19 10:30 Dose: 400 mg Methimazole (Tapazole) 20 mg PO Q8H [facility] Last Admin: 01/06/19 10:31 Dose: 20 mg Pantoprazole Sodium (Protonix Susp) 40 mg PO DAILY [facility] Last Admin: 01/06/19 10:30 Dose: 40 mg Potassium Chloride (K-Dur 20 Meq Er Tab) 40 meq PO BRK [facility] Last Admin: 01/06/19 10:30 Dose: 40 meq Propranolol HCl (Inderal) 30 mg PO Q8H [facility] Last Admin: 01/06/19 14:07 Dose: 30 mg Rosuvastatin Calcium (Crestor) 10 mg PO HS [facility] Last Admin: 01/05/19 21:15 Dose: 10 mg Spironolactone (Aldactone) 50 mg PO DAILY [facility] Last Admin: 01/06/19 10:30 Dose: 50 mg - Labs Labs: 01/06/19 08:07 01/06/19 08:07 PT 14.1 SECONDS (9.7-12.2) H 12/26/18 06:07 INR 1.3 12/26/18 06:07 APTT 32 SECONDS (21-34) 12/26/18 06:07
--- NOTE | 2019-01-06 15:53 | CP.PCM.PN ---
Subjective - Date & Time of Evaluation Date of Evaluation: 01/06/19 Time of Evaluation: 09:00 - Subjective Subjective: awake alert afebrile in NAD Objective - Vital Signs/Intake and Output Vital Signs (last 24 hours): Temp Pulse Resp BP Pulse Ox 97.5 F L 96 H 20 125/83 100 01/06/19 07:10 01/06/19 08:45 01/06/19 07:10 01/06/19 07:10 01/06/19 07:10 Intake and Output: 01/06/19 01/06/19 06:59 18:59 Intake Total 480 Output Total 1550 Balance -1070 - Medications Medications: Current Medications Acetaminophen (Tylenol 650mg/20.3ml Solution Ud) 650 mg GT Q6 PRN PRN Reason: Temperature Last Admin: 12/31/18 23:00 Dose: 650 mg Enoxaparin Sodium (Lovenox) 30 mg SC DAILY [facility] Last Admin: 01/01/19 09:00 Dose: 30 mg Insulin Human Regular (Novolin R) 0 unit SC [facility]; Protocol Last Admin: 01/06/19 14:01 Dose: Not Given Magnesium Oxide (Mag-Ox) 400 mg PO BID [facility] Last Admin: 01/06/19 10:30 Dose: 400 mg Methimazole (Tapazole) 20 mg PO Q8H [facility] Last Admin: 01/06/19 10:31 Dose: 20 mg Pantoprazole Sodium (Protonix Susp) 40 mg PO DAILY [facility] Last Admin: 01/06/19 10:30 Dose: 40 mg Potassium Chloride (K-Dur 20 Meq Er Tab) 40 meq PO BRK [facility] Last Admin: 01/06/19 10:30 Dose: 40 meq Propranolol HCl (Inderal) 30 mg PO Q8H [facility] Last Admin: 01/06/19 14:07 Dose: 30 mg Rosuvastatin Calcium (Crestor) 10 mg PO HS [facility] Last Admin: 01/05/19 21:15 Dose: 10 mg Spironolactone (Aldactone) 50 mg PO DAILY [facility] Last Admin: 01/06/19 10:30 Dose: 50 mg - Labs Labs: 01/06/19 08:07 01/06/19 08:07 PT 14.1 SECONDS (9.7-12.2) H 12/26/18 06:07 INR 1.3 12/26/18 06:07 APTT 32 SECONDS (21-34) 12/26/18 06:07 - Constitutional Appears: Non-toxic, No Acute Distress, Chronically Ill - Head Exam Head Exam: ATRAUMATIC, NORMAL INSPECTION, NORMOCEPHALIC - Eye Exam Eye Exam: EOMI, Normal appearance, PERRL Pupil Exam: NORMAL ACCOMODATION, PERRL - ENT Exam ENT Exam: Mucous Membranes Moist, Normal Exam - Neck Exam Neck Exam: Full ROM, Normal Inspection. absent: Lymphadenopathy - Respiratory Exam Respiratory Exam: Clear to Ausculation Bilateral, NORMAL BREATHING PATTERN - Cardiovascular Exam Cardiovascular Exam: REGULAR RHYTHM, +S1, +S2. absent: Murmur - GI/Abdominal Exam GI & Abdominal Exam: Soft, Normal Bowel Sounds. absent: Tenderness - Exam Exam: NORMAL INSPECTION - Extremities Exam Extremities Exam: Full ROM, Normal Capillary Refill, Normal Inspection. absent: Joint Swelling, Pedal Edema - Back Exam Back Exam: NORMAL INSPECTION - Neurological Exam Neurological Exam: Alert, Awake, CN II-XII Intact, Normal Gait, Oriented x3 - Psychiatric Exam Psychiatric exam: Normal Affect, Normal Mood - Skin Skin Exam: Dry, Intact, Normal Color, Warm Assessment and Plan (1) Fever Status: Acute (2) TANVI (acute kidney injury) Status: Acute (3) Cardiac arrest Status: Acute (4) Cardiomyopathy Status: Acute (5) Thyrotoxicosis Status: Acute - Assessment and Plan (Free Text) Assessment: cont rx as ordered discussed with Dr Valerio Nunez
--- NOTE | 2019-01-06 17:14 | PN ---
DATE: 01/06/2019 ENDOCRINOLOGY FOLLOWUP NOTE LOCATION: Room 662. SUBJECTIVE: This is a 48-year-old female with overt thyrotoxicosis, presenting here with marked hyperthyroidism and has since then improved clinically and metabolically as noted thereof. She remains clinically euthyroid at this time. Her latest chemistry showed a BUN of 16, sodium 141, potassium 4.8, chloride 106, CO2 of 33, glucose 115, and creatinine 0.8. Her glucose levels are fluctuating, but improved and have ranged from 112 to 225 and 230 mg/dL. Her latest thyroid studies showed a T4 or thyroxine level of 10.5 with a TSH of less than 0.02. ASSESSMENT: This is a 48-year-old female with overt thyrotoxicosis related to underlying Graves disease with a diffuse toxic goiter and has since then improved clinically and metabolically with the initiation of medical therapy as given. She remains clinically euthyroid and biochemically, has suppressed TSH, which will take months to recover, but has improved otherwise metabolically as noted. She also had recent acute respiratory failure and since then is successfully extubated and currently tolerating oxygen by nasal cannula as given. PLAN OF MANAGEMENT: We will continue the Tapazole given as 20 mg every 8 hours as ordered. We will obtain serial thyroid studies accordingly and supplement her chemistries as indicated. We will follow. Linda Weaver MD
--- NOTE | 2019-01-06 18:02 | CP.PCM.PN ---
Subjective - Date & Time of Evaluation Date of Evaluation: 01/06/19 - Subjective Subjective: Patient was seen today No nausea No vomiting No diarrhea No dizziness No fever No shortness of breath Objective - Vital Signs/Intake and Output Vital Signs (last 24 hours): Temp Pulse Resp BP Pulse Ox 97.5 F L 96 H 20 125/83 100 01/06/19 07:10 01/06/19 08:45 01/06/19 07:10 01/06/19 07:10 01/06/19 07:10 Intake and Output: 01/06/19 01/06/19 06:59 18:59 Intake Total 480 Output Total 1550 Balance -1070 - Medications Medications: Current Medications Acetaminophen (Tylenol 650mg/20.3ml Solution Ud) 650 mg GT Q6 PRN PRN Reason: Temperature Last Admin: 12/31/18 23:00 Dose: 650 mg Enoxaparin Sodium (Lovenox) 30 mg SC DAILY [facility] Last Admin: 01/01/19 09:00 Dose: 30 mg Insulin Human Regular (Novolin R) [address] [facility]; Protocol Last Admin: 01/06/19 17:21 Dose: Not Given Magnesium Oxide (Mag-Ox) 400 mg PO BID [facility] Last Admin: 01/06/19 10:30 Dose: 400 mg Methimazole (Tapazole) 20 mg PO Q8H [facility] Last Admin: 01/06/19 10:31 Dose: 20 mg Pantoprazole Sodium (Protonix Susp) 40 mg PO DAILY [facility] Last Admin: 01/06/19 10:30 Dose: 40 mg Potassium Chloride (K-Dur 20 Meq Er Tab) 40 meq PO BRK [facility] Last Admin: 01/06/19 10:30 Dose: 40 meq Propranolol HCl (Inderal) 30 mg PO Q8H [facility] Last Admin: 01/06/19 14:07 Dose: 30 mg Rosuvastatin Calcium (Crestor) 10 mg PO HS [facility] Last Admin: 01/05/19 21:15 Dose: 10 mg Spironolactone (Aldactone) 50 mg PO DAILY [facility] Last Admin: 01/06/19 10:30 Dose: 50 mg - Labs Labs: 01/06/19 08:07 01/06/19 08:07 PT 14.1 SECONDS (9.7-12.2) H 12/26/18 06:07 INR 1.3 12/26/18 06:07 APTT 32 SECONDS (21-34) 12/26/18 06:07 - Constitutional Appears: Well - Head Exam Head Exam: ATRAUMATIC, NORMAL INSPECTION, NORMOCEPHALIC - Eye Exam Eye Exam: EOMI, Normal appearance, PERRL Pupil Exam: NORMAL ACCOMODATION, PERRL - ENT Exam ENT Exam: Mucous Membranes Moist, Normal Exam - Neck Exam Neck Exam: Full ROM, Normal Inspection. absent: Lymphadenopathy - Respiratory Exam Respiratory Exam: Decreased Breath Sounds - Cardiovascular Exam Cardiovascular Exam: REGULAR RHYTHM, +S1, +S2 - GI/Abdominal Exam GI & Abdominal Exam: Soft, Diminished Bowel Sounds - Rectal Exam Rectal Exam: Deferred - Neurological Exam Neurological Exam: Oriented x3 Assessment and Plan (1) TANVI (acute kidney injury) Status: Acute (2) Abdominal pain Status: Acute (3) Cardiac arrest Status: Acute (4) Cardiomyopathy Status: Acute (5) Dysphagia Status: Acute (6) Fever Status: Acute (7) Headache Status: Acute (8) Moderate pulmonary arterial systolic hypertension Status: Acute (9) Nausea Status: Acute (10) Sinus tachycardia Status: Acute (11) Thyrotoxicosis Status: Acute (12) Bronchitis Status: Acute (13) Chest pain Status: Acute (14) Dental caries Status: Acute (15) Diarrhea Status: Acute (16) Hypertension Status: Acute (17) Hyperthyroidism Status: Acute (18) Hypokalemia Status: Acute - Assessment and Plan (Free Text) Plan: Aldactone Crestor Inderal K-Dur Lovenox Mag-Ox Novolin R Protonix Tapazole Medications reviewed Labs reviewed Vitals reviewed
[2019-01-07 07:06] LABS: BASO # 0.1 K/uL (0.0-0.2); BASO % 0.8 % (0.0-2.0); EOS # 0.2 K/uL (0.0-0.7); EOS % 1.4 % (0.0-4.0); HEMOGLOBIN 12.4 g/dL (11.0-16.0); LYMPH # 2.4 K/uL (1.0-4.3); LYMPH % 21.4 % (20.0-40.0); MEAN CELL VOLUME 87.2 fL (81.0-99.0); MEAN CORPUSCULAR HEMOGLOBIN 28.6 pg (27.0-31.0); MEAN CORPUSCULAR HGB CONC 32.8 g/dL (33.0-37.0); MEAN PLATELET VOLUME 9.8 fL (7.2-11.7); MONO # 0.9 K/uL (0.0-0.8); MONO % 8.2 % (0.0-10.0); NEUT # 7.8 K/uL (1.8-7.0); NEUT % 68.2 % (50.0-75.0); RBC 4.32 Mil/uL (3.80-5.20); RED CELL DISTRIBUTION WIDTH 13.9 % (11.5-14.5); WHITE BLOOD COUNT 11.4 K/uL (4.8-10.8)
[2019-01-07 07:28] LABS: ALBUMIN 3.5 g/dL (3.5-5.0); ALT/SGPT 18 U/L (9-52); AST/SGOT 34 U/L (14-36); BLOOD UREA NITROGEN 16 mg/dL (7-17); GFR NON-AFRICAN AMERICAN > 60
[2019-01-07] MEDS: Potassium Chloride 20 mEq ER Tab PO SCH (08:00)
[2019-01-07] MEDS: (Novolin R) Insulin Human Regular 100 units/ml vial SC SCH ×4 (08:19→21:52)
[2019-01-07] MEDS: Magnesium Sulfate 1 gm in D5W 1 GM/100 ML BAG IVPB SCH ×2 (10:37→12:36)
[2019-01-07] MEDS: Magnesium Oxide 400 mg Tab UD PO SCH ×2 (10:37→17:55)
[2019-01-07] MEDS: Pantoprazole 40 mg Susp UD PO SCH (10:45)
--- NOTE | 2019-01-07 15:11 | CP.PCM.PN ---
Subjective - Date & Time of Evaluation Date of Evaluation: 01/07/19 Time of Evaluation: 15:11 - Subjective Subjective: Nephrology Consultation Note: Assessment: stable Non-oliguric Acute Kidney Injury (N17.9) likely due to renal hypoperfusion due to cardiac arrest/hypotension leading to ATN, had exposure to IV contrast in addition: IMPROVED uncontrolled severe HTN, with shock hypokalemia, hyperkalemia, HAGMA/lactic acidosis hypernatremia hypertension (years) obesity hyperthyroidism thyroid storm, cardiac arrest s/p resuscitation BiV failure with LVEF 15%, sepsis hypomagnesemia Plan No acute need for renal replacement therapy at this time. Hypertension control with meds as ordered. Maintain hemodynamics stable. Avoid hypotension. continue with RAAS maggy as aldactone. continue with rate control meds as beta blockers Monitor Input/Output, daily weights and renal function with basic metabolic panel supplement lytes as needed endocrine and cardiology following Dose meds/antibiotics for improved GFR >60. Glycemic control Further work up/management as per primary team pt for d/c to [facility] soon. stable from renal perspective Thanks for allowing me to participate in care of your patient. Will follow patient with you. Please call if any Qs. had d/w team Dr Darshan Call Office: [phone] Chief Complaint; unable Reason for consult: Acute Kidney Injury HPI: Pt is a 48 F with hx of hypertension (years) obesity hyperthyroidism presented with complaints of pain abdomen and found to have thyroid storm, cardiac arrest s/p resuscitation, foudn to have BiV failure with LVEF 15%, sepsis and also with TANVI hence renal consulted no known OTC/herbal meds or NSAIDs Noted recent iodinated contrast exposure as CTA. Noted obvious episodes of low BP. ROS: pt feels better. able to eat. denies Cp/SOB Physical Examination: General Appearance: Comfortable, in no acute respiratory distress, better ap pearing Vitals reviewed and noted as below Head; Atraumatic, normocephalic ENT: no ulcers no thrush. Tongue is midline. Oropharynx: no rash or ulcers. EYES: Pupils are equal, round and sluggish to light accommodation. Eye muscles and extraocular movement intact. Sclera is anicteric. Neck; supple no lymphadenopathy, gross thyromegaly noted Lungs: Normal respiratory rate/effort. Breath sounds b/l improving Heart: Improved rate. s1s2 normal. No rub or gallop. Extremities: no edema. No varicose veins Skin: Warm and dry. Normal turgor. No rash. Palpitation: Normal elasticity for age Abdomen: Abdomen is soft. Bowel sounds +. There is no abdominal tenderness, no guarding/rigidity no organomegaly Psych: limited insight. normal affect MSK: no joint tenderness or swelling. Digits and nails normal, no deformity : kidney or bladder not palpable Labs/imaging reviewed. Past medical history, past surgical history, family history, social history, allergy reviewed and noted as below Family hx: no hx of CKD. Rest non-contributory Objective - Vital Signs/Intake and Output Vital Signs (last 24 hours): Temp Pulse Resp BP Pulse Ox 97.5 F L 99 H 18 120/83 100 01/07/19 09:51 01/07/19 09:51 01/07/19 09:51 01/07/19 09:51 01/07/19 09:51 Intake and Output: 01/07/19 01/07/19 06:59 18:59 Intake Total 400 Output Total 400 Balance 0 - Medications Medications: Current Medications Acetaminophen (Tylenol 650mg/20.3ml Solution Ud) 650 mg GT Q6 PRN PRN Reason: Temperature Last Admin: 12/31/18 23:00 Dose: 650 mg Enoxaparin Sodium (Lovenox) 30 mg SC DAILY [facility] Last Admin: 01/01/19 09:00 Dose: 30 mg Insulin Human Regular (Novolin R) 0 unit SC [facility]; Protocol Last Admin: 01/07/19 12:38 Dose: Not Given Magnesium Oxide (Mag-Ox) 800 mg PO BID [facility] Last Admin: 01/07/19 10:37 Dose: 800 mg Methimazole (Tapazole) 20 mg PO Q8H [facility] Last Admin: 01/07/19 10:38 Dose: 20 mg Pantoprazole Sodium (Protonix Susp) 40 mg PO DAILY [facility] Last Admin: 01/07/19 10:45 Dose: 40 mg Potassium Chloride (K-Dur 20 Meq Er Tab) 40 meq PO BRK [facility] Last Admin: 01/07/19 08:00 Dose: 40 meq Propranolol HCl (Inderal) 30 mg PO Q8H [facility] Last Admin: 01/07/19 10:37 Dose: 30 mg Rosuvastatin Calcium (Crestor) 10 mg PO [facility] Last Admin: 01/06/19 22:44 Dose: Not Given Spironolactone (Aldactone) 50 mg PO DAILY [facility] Last Admin: 01/07/19 10:38 Dose: 50 mg - Labs Labs: 01/07/19 06:53 01/07/19 06:53 PT 14.1 SECONDS (9.7-12.2) H 12/26/18 06:07 INR 1.3 12/26/18 06:07 APTT 32 SECONDS (21-34) 12/26/18 06:07
--- NOTE | 2019-01-07 17:53 | PN ---
DATE: 01/07/2019 ENDOCRINOLOGY FOLLOWUP NOTE LOCATION: Room 662. SUBJECTIVE: This is a 48-year-old female with overt thyrotoxicosis, presenting here with marked hyperthyroidism noted both historically, clinically and biochemically with initial presentation of cardiopulmonary arrest and subsequent extubation and has since then improved clinically and hemodynamically as noted thereof. Her chemistries today showed a BUN of 16, sodium 137, potassium 4.8, chloride 100, CO2 of 31, glucose 133 and creatinine 0.8. Her latest thyroxine levels showed a T4 of 10.5 with a TSH of less than 0.02. There was no recent one undertaken although it was ordered as noted. We will continue her Tapazole given as 20 mg every 8 hours, and we will lower accordingly to optimize metabolic control. We will repeat the T4 and TSH tomorrow morning as ordered. We will follow. Linda Weaver MD
--- NOTE | 2019-01-07 19:07 | CP.PCM.PN ---
Subjective - Date & Time of Evaluation Date of Evaluation: 01/07/19 Time of Evaluation: 07:30 - Subjective Subjective: Events reviewed Objective - Vital Signs/Intake and Output Vital Signs (last 24 hours): Temp Pulse Resp BP Pulse Ox 97.7 F 103 H 18 129/87 100 01/07/19 15:00 01/07/19 15:00 01/07/19 15:00 01/07/19 17:30 01/07/19 15:00 - Medications Medications: Current Medications Acetaminophen (Tylenol 650mg/20.3ml Solution Ud) 650 mg GT Q6 PRN PRN Reason: Temperature Last Admin: 12/31/18 23:00 Dose: 650 mg Enoxaparin Sodium (Lovenox) 30 mg SC DAILY [facility] Last Admin: 01/01/19 09:00 Dose: 30 mg Insulin Human Regular (Novolin R) 0 unit SC [facility]; Protocol Last Admin: 01/07/19 17:49 Dose: Not Given Magnesium Oxide (Mag-Ox) 800 mg PO BID [facility] Last Admin: 01/07/19 17:55 Dose: 800 mg Methimazole (Tapazole) 20 mg PO Q8H [facility] Last Admin: 01/07/19 17:56 Dose: 20 mg Pantoprazole Sodium (Protonix Susp) 40 mg PO DAILY [facility] Last Admin: 01/07/19 10:45 Dose: 40 mg Potassium Chloride (K-Dur 20 Meq Er Tab) 40 meq PO BRK [facility] Last Admin: 01/07/19 08:00 Dose: 40 meq Propranolol HCl (Inderal) 30 mg PO Q8H [facility] Last Admin: 01/07/19 10:37 Dose: 30 mg Rosuvastatin Calcium (Crestor) 10 mg PO HS [facility] Last Admin: 01/06/19 22:44 Dose: Not Given Spironolactone (Aldactone) 50 mg PO DAILY [facility] Last Admin: 01/07/19 10:38 Dose: 50 mg - Labs Labs: 01/07/19 06:53 01/07/19 06:53 PT 14.1 SECONDS (9.7-12.2) H 12/26/18 06:07 INR 1.3 12/26/18 06:07 APTT 32 SECONDS (21-34) 12/26/18 06:07 Assessment and Plan - Assessment and Plan (Free Text) Assessment: - Constitutional Appears: No Acute Distress - Head Exam Head Exam: ATRAUMATIC, NORMAL INSPECTION, NORMOCEPHALIC - Eye Exam Eye Exam: EOMI, Normal appearance. absent: Scleral icterus - ENT Exam ENT Exam: Mucous Membranes Moist - Neck Exam Neck Exam: Full ROM, Normal Inspection - Respiratory Exam Respiratory Exam: absent: Clear to Ausculation Bilateral (scattered basiler crep) - Cardiovascular Exam Cardiovascular Exam: REGULAR RHYTHM, +S1, +S2 - GI/Abdominal Exam GI & Abdominal Exam: Soft, Tenderness - Extremities Exam Extremities Exam: absent: Calf Tenderness, Pedal Edema - Neurological Exam Neurological Exam: Alert, Awake Assessment and Plan - Assessment and Plan (Free Text) Assessment: Non compliant 48 y/o presented with Thyroid storm and Severe metabolic acidosis with TANVI probably ATN/Shock liver, Hyperkalemia: Acute respiratory failure due to above: requiring intubation Toxic/metobolic encepholopathy Likely metabolic/hypoxemic cardiac arrest manifested as profound bradycardia: requiring CPR to gain ROSC CT head 01/05/19: stable R. subdural hematoma Initial ECHO: directly viewed by me: mod-severe LV dysfunction global hypokinesia LVH RVE and moderate RV dysfunction Mild-mod inc in PASP dilated IVC and reduced compliance c/w inc JVP Mod TR, Mild MR, trace AI Grade 1 diastolic dysfunction PLAN: 48 year old female with respirtory failure now extubated more awake REPEAT ECHO SUGGESTS IMPROVEMENT OF LV FUNCTION TO NEAR NORMAL RANGE WITH IMPROVEMENT IN RV FUNCTION AND SIZE, MILD-MOD PULM HTN NOTED now HTN TANVI IMPROVED: monitor lytes Hyperthyroid on tapazole PLAN PROPRANALOL TO 30 Q8 AND TITRATE: Pulses improved to normal ranges CONT ALDACTONE
--- NOTE | 2019-01-07 19:36 | CP.PCM.PN ---
Subjective - Date & Time of Evaluation Date of Evaluation: 01/07/19 Time of Evaluation: 02:45 - Subjective Subjective: Lying in the bed interpreting for the moment diet No nausea no vomiting no constipation no diarrhea Patient eats well Objective - Vital Signs/Intake and Output Vital Signs (last 24 hours): Temp Pulse Resp BP Pulse Ox 97.7 F 103 H 18 129/87 100 01/07/19 15:00 01/07/19 15:00 01/07/19 15:00 01/07/19 17:30 01/07/19 15:00 - Medications Medications: Current Medications Acetaminophen (Tylenol 650mg/20.3ml Solution Ud) 650 mg GT Q6 PRN PRN Reason: Temperature Last Admin: 12/31/18 23:00 Dose: 650 mg Enoxaparin Sodium (Lovenox) 30 mg SC DAILY [facility] Last Admin: 01/01/19 09:00 Dose: 30 mg Insulin Human Regular (Novolin R) 0 unit SC [facility]; Protocol Last Admin: 01/07/19 17:49 Dose: Not Given Magnesium Oxide (Mag-Ox) 800 mg PO BID [facility] Last Admin: 01/07/19 17:55 Dose: 800 mg Methimazole (Tapazole) 20 mg PO Q8H [facility] Last Admin: 01/07/19 17:56 Dose: 20 mg Pantoprazole Sodium (Protonix Susp) 40 mg PO DAILY [facility] Last Admin: 01/07/19 10:45 Dose: 40 mg Potassium Chloride (K-Dur 20 Meq Er Tab) 40 meq PO BRK [facility] Last Admin: 01/07/19 08:00 Dose: 40 meq Propranolol HCl (Inderal) 30 mg PO Q8H [facility] Last Admin: 01/07/19 10:37 Dose: 30 mg Rosuvastatin Calcium (Crestor) 10 mg PO HS [facility] Last Admin: 01/06/19 22:44 Dose: Not Given Spironolactone (Aldactone) 50 mg PO DAILY [facility] Last Admin: 01/07/19 10:38 Dose: 50 mg - Labs Labs: 01/07/19 06:53 01/07/19 06:53 PT 14.1 SECONDS (9.7-12.2) H 12/26/18 06:07 INR 1.3 12/26/18 06:07 APTT 32 SECONDS (21-34) 12/26/18 06:07 - Constitutional Appears: Well - Head Exam Head Exam: ATRAUMATIC, NORMAL INSPECTION, NORMOCEPHALIC - Eye Exam Eye Exam: EOMI, Normal appearance, PERRL Pupil Exam: NORMAL ACCOMODATION, PERRL - ENT Exam ENT Exam: Mucous Membranes Moist, Normal Exam - Neck Exam Neck Exam: Full ROM, Normal Inspection. absent: Lymphadenopathy - Respiratory Exam Respiratory Exam: Decreased Breath Sounds - Cardiovascular Exam Cardiovascular Exam: REGULAR RHYTHM, +S1, +S2 - GI/Abdominal Exam GI & Abdominal Exam: Soft, Diminished Bowel Sounds - Rectal Exam Rectal Exam: Deferred - Neurological Exam Neurological Exam: Oriented x3 Assessment and Plan (1) TANVI (acute kidney injury) Status: Acute (2) Abdominal pain Status: Acute (3) Cardiac arrest Status: Acute (4) Cardiomyopathy Status: Acute (5) Dysphagia Status: Acute (6) Fever Status: Acute (7) Headache Status: Acute (8) Moderate pulmonary arterial systolic hypertension Status: Acute (9) Nausea Status: Acute (10) Sinus tachycardia Status: Acute (11) Thyrotoxicosis Status: Acute (12) Bronchitis Status: Acute (13) Chest pain Status: Acute (14) Dental caries Status: Acute (15) Diarrhea Status: Acute (16) Hypertension Status: Acute (17) Hyperthyroidism Status: Acute (18) Hypokalemia Status: Acute - Assessment and Plan (Free Text) Plan: medications reviewed labs reviewed vitals reviewed aldactone crestor Inderal k-dur lovenox mag-ox novlin R protonix susp tapazole tylenol 650mg/20.3ml sln ud Mom and dad also available at the bedside Status post renal Status post cardiology Medications reviewed Seen by ID Dr. [place] yesterday Awaiting to be transferred to [facility]
[2019-01-08] MEDS: (Novolin R) Insulin Human Regular 100 units/ml vial SC SCH ×4 (07:30→21:47)
--- NOTE | 2019-01-08 07:38 | CP.PCM.PN ---
Subjective - Date & Time of Evaluation Date of Evaluation: 01/08/19 Time of Evaluation: 07:36 - Subjective Subjective: Events reviewed Objective - Vital Signs/Intake and Output Vital Signs (last 24 hours): Temp Pulse Resp BP Pulse Ox 98.4 F 93 H 20 137/91 H 100 01/07/19 23:05 01/07/19 23:05 01/07/19 23:05 01/08/19 03:05 01/07/19 23:05 Intake and Output: 01/08/19 01/08/19 06:59 18:59 Intake Total 490 Output Total 800 Balance -310 - Medications Medications: Current Medications Acetaminophen (Tylenol 650mg/20.3ml Solution Ud) 650 mg GT Q6 PRN PRN Reason: Temperature Last Admin: 12/31/18 23:00 Dose: 650 mg Enoxaparin Sodium (Lovenox) 30 mg SC DAILY [facility] Last Admin: 01/01/19 09:00 Dose: 30 mg Insulin Human Regular (Novolin R) 0 unit SC [facility]; Protocol Last Admin: 01/07/19 21:52 Dose: Not Given Magnesium Oxide (Mag-Ox) 800 mg PO BID [facility] Last Admin: 01/07/19 17:55 Dose: 800 mg Methimazole (Tapazole) 20 mg PO Q8H [facility] Last Admin: 01/08/19 02:01 Dose: 20 mg Pantoprazole Sodium (Protonix Susp) 40 mg PO DAILY [facility] Last Admin: 01/07/19 10:45 Dose: 40 mg Potassium Chloride (K-Dur 20 Meq Er Tab) 40 meq PO BRK [facility] Last Admin: 01/07/19 08:00 Dose: 40 meq Propranolol HCl (Inderal) 30 mg PO Q8H [facility] Last Admin: 01/08/19 03:01 Dose: 30 mg Rosuvastatin Calcium (Crestor) 10 mg PO HS [facility] Last Admin: 01/07/19 21:51 Dose: 10 mg Spironolactone (Aldactone) 50 mg PO DAILY [facility] Last Admin: 01/07/19 10:38 Dose: 50 mg - Labs Labs: 01/07/19 06:53 01/07/19 06:53 PT 14.1 SECONDS (9.7-12.2) H 12/26/18 06:07 INR 1.3 12/26/18 06:07 APTT 32 SECONDS (21-34) 12/26/18 06:07 Assessment and Plan - Assessment and Plan (Free Text) Plan: - Constitutional Appears: No Acute Distress - Head Exam Head Exam: ATRAUMATIC, NORMAL INSPECTION, NORMOCEPHALIC - Eye Exam Eye Exam: EOMI, Normal appearance. absent: Scleral icterus - ENT Exam ENT Exam: Mucous Membranes Moist - Neck Exam Neck Exam: Full ROM, Normal Inspection - Respiratory Exam Respiratory Exam: absent: Clear to Ausculation Bilateral (scattered basiler crep) - Cardiovascular Exam Cardiovascular Exam: REGULAR RHYTHM, +S1, +S2 - GI/Abdominal Exam GI & Abdominal Exam: Soft, Tenderness - Extremities Exam Extremities Exam: absent: Calf Tenderness, Pedal Edema - Neurological Exam Neurological Exam: Alert, Awake Assessment and Plan - Assessment and Plan (Free Text) Assessment: Non compliant 48 y/o presented with Thyroid storm and Severe metabolic acidosis with TANVI probably ATN/Shock liver, Hyperkalemia: Acute respiratory failure due to above: requiring intubation Toxic/metobolic encepholopathy Likely metabolic/hypoxemic cardiac arrest manifested as profound bradycardia: requiring CPR to gain ROSC CT head 01/05/19: stable R. subdural hematoma Initial ECHO: directly viewed by me: mod-severe LV dysfunction global hypokinesia LVH RVE and moderate RV dysfunction Mild-mod inc in PASP dilated IVC and reduced compliance c/w inc JVP Mod TR, Mild MR, trace AI Grade 1 diastolic dysfunction PLAN: 48 year old female with respirtory failure now extubated more awake REPEAT ECHO SUGGESTS IMPROVEMENT OF LV FUNCTION TO NEAR NORMAL RANGE WITH IMPROVEMENT IN RV FUNCTION AND SIZE, MILD-MOD PULM HTN NOTED now HTN TANVI IMPROVED: monitor lytes Hyperthyroid on tapazole PLAN PROPRANALOL TO 30 Q8 AND TITRATE: Pulses improved to normal ranges CONT ALDACTONE
[2019-01-08 07:59] LABS: ALB/GLOB RATIO 0.9 (1.0-2.1); ALBUMIN 3.4 g/dL (3.5-5.0); ALT/SGPT 18 U/L (9-52); AST/SGOT 31 U/L (14-36); BLOOD UREA NITROGEN 14 mg/dL (7-17); CALCIUM 9.1 mg/dl (8.6-10.4); GFR NON-AFRICAN AMERICAN > 60
[2019-01-08] MEDS: Potassium Chloride 20 mEq ER Tab PO SCH (08:00)
[2019-01-08] MEDS: Pantoprazole 40 mg Susp UD PO SCH (10:01)
[2019-01-08] MEDS: Magnesium Oxide 400 mg Tab UD PO SCH ×2 (10:01→17:23)
--- NOTE | 2019-01-08 10:09 | CP.PCM.PN ---
Subjective - Date & Time of Evaluation Date of Evaluation: 01/08/19 - Subjective Subjective: Patient seen and examined today No nausea No vomiting No fever No diarrhea No dizziness No shortness of breath Objective - Vital Signs/Intake and Output Vital Signs (last 24 hours): Temp Pulse Resp BP Pulse Ox 97.9 F 96 H 18 118/79 99 01/08/19 07:17 01/08/19 07:17 01/08/19 07:17 01/08/19 07:17 01/08/19 07:17 Intake and Output: 01/08/19 01/08/19 06:59 18:59 Intake Total 490 Output Total 800 Balance -310 - Medications Medications: Current Medications Acetaminophen (Tylenol 650mg/20.3ml Solution Ud) 650 mg GT Q6 PRN PRN Reason: Temperature Last Admin: 12/31/18 23:00 Dose: 650 mg Enoxaparin Sodium (Lovenox) 30 mg SC DAILY [facility] Last Admin: 01/01/19 09:00 Dose: 30 mg Insulin Human Regular (Novolin R) 0 unit SC [facility]; Protocol Last Admin: 01/08/19 07:30 Dose: Not Given Magnesium Oxide (Mag-Ox) 800 mg PO BID [facility] Last Admin: 01/08/19 10:01 Dose: 800 mg Methimazole (Tapazole) 20 mg PO Q8H [facility] Last Admin: 01/08/19 10:01 Dose: 20 mg Pantoprazole Sodium (Protonix Susp) 40 mg PO DAILY [facility] Last Admin: 01/08/19 10:01 Dose: 40 mg Potassium Chloride (K-Dur 20 Meq Er Tab) 40 meq PO BRK [facility] Last Admin: 01/08/19 08:00 Dose: 40 meq Propranolol HCl (Inderal) 30 mg PO Q8H [facility] Last Admin: 01/08/19 03:01 Dose: 30 mg Rosuvastatin Calcium (Crestor) 10 mg PO HS [facility] Last Admin: 01/07/19 21:51 Dose: 10 mg Spironolactone (Aldactone) 50 mg PO DAILY [facility] Last Admin: 01/08/19 10:00 Dose: 50 mg - Labs Labs: 01/07/19 06:53 01/08/19 07:35 PT 14.1 SECONDS (9.7-12.2) H 12/26/18 06:07 INR 1.3 12/26/18 06:07 APTT 32 SECONDS (21-34) 12/26/18 06:07 - Constitutional Appears: Well - Head Exam Head Exam: ATRAUMATIC, NORMAL INSPECTION, NORMOCEPHALIC - Eye Exam Eye Exam: EOMI, Normal appearance, PERRL Pupil Exam: NORMAL ACCOMODATION, PERRL - ENT Exam ENT Exam: Mucous Membranes Moist, Normal Exam - Neck Exam Neck Exam: Full ROM, Normal Inspection. absent: Lymphadenopathy - Respiratory Exam Respiratory Exam: Decreased Breath Sounds - Cardiovascular Exam Cardiovascular Exam: REGULAR RHYTHM, +S1, +S2 - GI/Abdominal Exam GI & Abdominal Exam: Soft, Diminished Bowel Sounds - Rectal Exam Rectal Exam: Deferred - Neurological Exam Neurological Exam: Oriented x3 Assessment and Plan - Assessment and Plan (Free Text) Plan: medications reviewed labs reviewed vitals reviewed aldactone crestor inderal k-unique 20 meq lovenox mag-ox novolin R protonix susp tapazole tylenol
--- NOTE | 2019-01-08 12:00 | CP.PCM.PN ---
Subjective - Date & Time of Evaluation Date of Evaluation: 01/08/19 Time of Evaluation: 12:00 - Subjective Subjective: Nephrology Consultation Note: Assessment: stable Non-oliguric Acute Kidney Injury (N17.9) likely due to renal hypoperfusion due to cardiac arrest/hypotension leading to ATN, had exposure to IV contrast in addition: IMPROVED uncontrolled severe HTN, with shock hypokalemia, hyperkalemia, HAGMA/lactic acidosis hypernatremia hypertension (years) obesity hyperthyroidism thyroid storm, cardiac arrest s/p resuscitation BiV failure with LVEF 15%, sepsis hypomagnesemia Plan No acute need for renal replacement therapy at this time. Hypertension control with meds as ordered. Maintain hemodynamics stable. Avoid hypotension. continue with RAAS maggy as aldactone. continue with rate control meds as beta blockers Monitor Input/Output, daily weights and renal function with basic metabolic panel supplement lytes as needed endocrine and cardiology following Dose meds/antibiotics for improved GFR >60. Glycemic control Further work up/management as per primary team pt for d/c to [facility] soon. stable from renal perspective Thanks for allowing me to participate in care of your patient. Will sign off and follow patient with you further PRN basis. Please call if any Qs. had d/w team Dr Darshan Call Office: [phone] Chief Complaint; unable Reason for consult: Acute Kidney Injury HPI: Pt is a 48 F with hx of hypertension (years) obesity hyperthyroidism presented with complaints of pain abdomen and found to have thyroid storm, cardiac arrest s/p resuscitation, foudn to have BiV failure with LVEF 15%, sepsis and also with TANVI hence renal consulted no known OTC/herbal meds or NSAIDs Noted recent iodinated contrast exposure as CTA. Noted obvious episodes of low BP. ROS: pt feels better. able to eat. denies Cp/SOB Physical Examination: General Appearance: Comfortable, in no acute respiratory distress, better appearing Vitals reviewed and noted as below Head; Atraumatic, normocephalic ENT: no ulcers no thrush. Tongue is midline. Oropharynx: no rash or ulcers. EYES: Pupils are equal, round and sluggish to light accommodation. Eye muscles and extraocular movement intact. Sclera is anicteric. Neck; supple no lymphadenopathy, gross thyromegaly noted Lungs: Normal respiratory rate/effort. Breath sounds b/l improving Heart: Improved rate. s1s2 normal. No rub or gallop. Extremities: no edema. No varicose veins Skin: Warm and dry. Normal turgor. No rash. Palpitation: Normal elasticity for age Abdomen: Abdomen is soft. Bowel sounds +. There is no abdominal tenderness, no guarding/rigidity no organomegaly Psych: limited insight. normal affect MSK: no joint tenderness or swelling. Digits and nails normal, no deformity : kidney or bladder not palpable Labs/imaging reviewed. Past medical history, past surgical history, family history, social history, allergy reviewed and noted as below Family hx: no hx of CKD. Rest non-contributory Objective - Vital Signs/Intake and Output Vital Signs (last 24 hours): Temp Pulse Resp BP Pulse Ox 97.9 F 96 H 18 118/79 99 01/08/19 07:17 01/08/19 07:17 01/08/19 07:17 01/08/19 07:17 01/08/19 07:17 Intake and Output: 01/08/19 01/08/19 06:59 18:59 Intake Total 490 Output Total 800 Balance -310 - Medications Medications: Current Medications Acetaminophen (Tylenol 650mg/20.3ml Solution Ud) 650 mg GT Q6 PRN PRN Reason: Temperature Last Admin: 12/31/18 23:00 Dose: 650 mg Enoxaparin Sodium (Lovenox) 30 mg SC DAILY [facility] Last Admin: 01/01/19 09:00 Dose: 30 mg Insulin Human Regular (Novolin R) 0 unit SC [facility]; Protocol Last Admin: 01/08/19 07:30 Dose: Not Given Magnesium Oxide (Mag-Ox) 800 mg PO BID [facility] Last Admin: 01/08/19 10:01 Dose: 800 mg Methimazole (Tapazole) 20 mg PO Q8H [facility] Last Admin: 01/08/19 10:01 Dose: 20 mg Pantoprazole Sodium (Protonix Susp) 40 mg PO DAILY [facility] Last Admin: 01/08/19 10:01 Dose: 40 mg Potassium Chloride (K-Dur 20 Meq Er Tab) 40 meq PO BRK [facility] Last Admin: 01/08/19 08:00 Dose: 40 meq Propranolol HCl (Inderal) 30 mg PO Q8H [facility] Last Admin: 01/08/19 03:01 Dose: 30 mg Rosuvastatin Calcium (Crestor) 10 mg PO [facility] Last Admin: 01/07/19 21:51 Dose: 10 mg Spironolactone (Aldactone) 50 mg PO DAILY [facility] Last Admin: 01/08/19 10:00 Dose: 50 mg - Labs Labs: 01/07/19 06:53 01/08/19 07:35 PT 14.1 SECONDS (9.7-12.2) H 12/26/18 06:07 INR 1.3 12/26/18 06:07 APTT 32 SECONDS (21-34) 12/26/18 06:07
--- NOTE | 2019-01-08 15:37 | CP.PCM.PN ---
Subjective - Date & Time of Evaluation Date of Evaluation: 01/08/19 Time of Evaluation: 09:00 - Subjective Subjective: no new complaints afeb Objective - Vital Signs/Intake and Output Vital Signs (last 24 hours): Temp Pulse Resp BP Pulse Ox 97.9 F 96 H 18 118/79 99 01/08/19 07:17 01/08/19 07:17 01/08/19 07:17 01/08/19 07:17 01/08/19 07:17 Intake and Output: 01/08/19 01/08/19 06:59 18:59 Intake Total 490 Output Total 800 Balance -310 - Medications Medications: Current Medications Acetaminophen (Tylenol 650mg/20.3ml Solution Ud) 650 mg GT Q6 PRN PRN Reason: Temperature Last Admin: 12/31/18 23:00 Dose: 650 mg Enoxaparin Sodium (Lovenox) 30 mg SC DAILY [facility] Last Admin: 01/01/19 09:00 Dose: 30 mg Insulin Human Regular (Novolin R) 0 unit SC [facility]; Protocol Last Admin: 01/08/19 12:39 Dose: Not Given Magnesium Oxide (Mag-Ox) 800 mg PO BID [facility] Last Admin: 01/08/19 10:01 Dose: 800 mg Methimazole (Tapazole) 20 mg PO Q8H [facility] Last Admin: 01/08/19 10:01 Dose: 20 mg Pantoprazole Sodium (Protonix Susp) 40 mg PO DAILY [facility] Last Admin: 01/08/19 10:01 Dose: 40 mg Potassium Chloride (K-Dur 20 Meq Er Tab) 40 meq PO BRK [facility] Last Admin: 01/08/19 08:00 Dose: 40 meq Propranolol HCl (Inderal) 30 mg PO Q8H [facility] Last Admin: 01/08/19 10:38 Dose: 30 mg Rosuvastatin Calcium (Crestor) 10 mg PO HS [facility] Last Admin: 01/07/19 21:51 Dose: 10 mg Spironolactone (Aldactone) 50 mg PO DAILY [facility] Last Admin: 01/08/19 10:00 Dose: 50 mg - Labs Labs: 01/07/19 06:53 01/08/19 07:35 PT 14.1 SECONDS (9.7-12.2) H 12/26/18 06:07 INR 1.3 12/26/18 06:07 APTT 32 SECONDS (21-34) 12/26/18 06:07 - Constitutional Appears: Non-toxic, Chronically Ill - Head Exam Head Exam: ATRAUMATIC, NORMAL INSPECTION, NORMOCEPHALIC - Eye Exam Eye Exam: EOMI, Normal appearance, PERRL Pupil Exam: NORMAL ACCOMODATION, PERRL - ENT Exam ENT Exam: Mucous Membranes Moist, Normal Exam - Neck Exam Neck Exam: Full ROM, Normal Inspection. absent: Lymphadenopathy - Respiratory Exam Respiratory Exam: Clear to Ausculation Bilateral, NORMAL BREATHING PATTERN - Cardiovascular Exam Cardiovascular Exam: REGULAR RHYTHM, +S1, +S2. absent: Murmur - GI/Abdominal Exam GI & Abdominal Exam: Soft, Normal Bowel Sounds. absent: Tenderness - Rectal Exam Rectal Exam: Deferred - Exam Exam: NORMAL INSPECTION - Extremities Exam Extremities Exam: Full ROM, Normal Capillary Refill, Normal Inspection. absent: Joint Swelling, Pedal Edema - Back Exam Back Exam: NORMAL INSPECTION - Neurological Exam Neurological Exam: Alert, Awake, CN II-XII Intact, Normal Gait, Oriented x3 - Psychiatric Exam Psychiatric exam: Normal Affect, Normal Mood - Skin Skin Exam: Dry, Intact, Normal Color, Warm Assessment and Plan (1) Fever Status: Acute (2) TANVI (acute kidney injury) Status: Acute (3) Cardiac arrest Status: Acute (4) Cardiomyopathy Status: Acute (5) Thyrotoxicosis Status: Acute - Assessment and Plan (Free Text) Assessment: observe for fever cont rx as per Lei Nunez
[2019-01-08 16:28] VITALS: RESP 20
--- NOTE | 2019-01-08 20:54 | CP.PCM.PN ---
Subjective - Date & Time of Evaluation Date of Evaluation: 01/08/19 Time of Evaluation: 12:00 - Subjective Subjective: Pulmonary critical care follow-up Patient seen and examined, events reviewed She is comfortable in no apparent distress She was initially admitted to the ICU with thyroid storm respiratory failure and status post cardiac arrest Successfully extubated and continued to slowly improve Objective - Vital Signs/Intake and Output Vital Signs (last 24 hours): Temp Pulse Resp BP Pulse Ox 98.4 F 106 H 20 129/82 99 01/08/19 16:28 01/08/19 16:28 01/08/19 16:28 01/08/19 16:28 01/08/19 16:28 - Medications Medications: Current Medications Acetaminophen (Tylenol 325mg Tab) 650 mg PO Q6 PRN PRN Reason: Pain, Mild (1-3) Last Admin: 01/08/19 17:24 Dose: 650 mg Enoxaparin Sodium (Lovenox) 30 mg SC DAILY [facility] Last Admin: 01/01/19 09:00 Dose: 30 mg Insulin Human Regular (Novolin R) 0 unit SC [facility]; Protocol Last Admin: 01/08/19 17:23 Dose: Not Given Magnesium Oxide (Mag-Ox) 800 mg PO BID [facility] Last Admin: 01/08/19 17:23 Dose: 800 mg Methimazole (Tapazole) 20 mg PO Q8H [facility] Last Admin: 01/08/19 17:23 Dose: 20 mg Pantoprazole Sodium (Protonix Susp) 40 mg PO DAILY [facility] Last Admin: 01/08/19 10:01 Dose: 40 mg Potassium Chloride (K-Dur 20 Meq Er Tab) 40 meq PO BRK [facility] Last Admin: 01/08/19 08:00 Dose: 40 meq Propranolol HCl (Inderal) 30 mg PO Q8H [facility] Last Admin: 01/08/19 18:36 Dose: 30 mg Rosuvastatin Calcium (Crestor) 10 mg PO HS [facility] Last Admin: 01/07/19 21:51 Dose: 10 mg Spironolactone (Aldactone) 50 mg PO DAILY [facility] Last Admin: 01/08/19 10:00 Dose: 50 mg - Labs Labs: 01/07/19 06:53 01/08/19 07:35 PT 14.1 SECONDS (9.7-12.2) H 12/26/18 06:07 INR 1.3 12/26/18 06:07 APTT 32 SECONDS (21-34) 12/26/18 06:07 - Constitutional Appears: Well, Non-toxic - Head Exam Head Exam: ATRAUMATIC, NORMAL INSPECTION - Eye Exam Eye Exam: EOMI, Normal appearance, PERRL - ENT Exam ENT Exam: Mucous Membranes Moist, Normal Exam - Respiratory Exam Respiratory Exam: Clear to Ausculation Bilateral, NORMAL BREATHING PATTERN - Cardiovascular Exam Cardiovascular Exam: REGULAR RHYTHM, +S1, +S2. absent: Murmur - GI/Abdominal Exam GI & Abdominal Exam: Soft, Normal Bowel Sounds. absent: Tenderness Assessment and Plan (1) Cardiac arrest Status: Acute (2) Cardiomyopathy Status: Acute (3) Moderate pulmonary arterial systolic hypertension Status: Acute (4) Abdominal pain Status: Acute (5) Thyrotoxicosis Status: Acute
--- NOTE | 2019-01-08 21:25 | PN ---
DATE: 01/08/2019 ENDOCRINOLOGY FOLLOWUP NOTE LOCATION: Room 662. SUBJECTIVE: This is a 48-year-old female with recent overt thyrotoxicosis with marked hyperthyroidism and has since then improved clinically and metabolically as noted thereof. Her glycemic levels are fluctuating, but improved and the glucose values have ranged from 183 to 224 mg/dL. LABORATORY DATA: Her chemistry showed a BUN of 14, sodium 134, potassium of 4.6, chloride 98, CO2 of 31, glucose 142, creatinine 0.7. Her repeat thyroid study showed a T4 or thyroxine level of 10.7 with a TSH of less than 0.02 and a free T4 of 1.67. ASSESSMENT AND PLAN: So at this time, we will continue the medical therapy given as Tapazole as 20 mg every 8 hours as ordered and titrate incrementally as indicated to optimize metabolic control. We will obtain serial chemistries and supplement accordingly as needed. We will follow. Linda Weaver MD
[2019-01-09] MEDS: (Novolin R) Insulin Human Regular 100 units/ml vial SC SCH ×4 (08:24→22:13)
[2019-01-09] MEDS: Potassium Chloride 20 mEq ER Tab PO SCH (09:00)
[2019-01-09] MEDS: Pantoprazole 40 mg Susp UD PO SCH (11:12)
[2019-01-09] MEDS: Magnesium Oxide 400 mg Tab UD PO SCH ×2 (11:12→19:00)
--- NOTE | 2019-01-09 12:28 | CP.PCM.PN ---
Subjective - Date & Time of Evaluation Date of Evaluation: 01/09/19 Time of Evaluation: 09:00 - Subjective Subjective: awake alert NAD family at bedside afebrile Objective - Vital Signs/Intake and Output Vital Signs (last 24 hours): Temp Pulse Resp BP Pulse Ox 98.1 F 111 H 20 135/88 98 01/09/19 07:00 01/09/19 07:00 01/09/19 07:00 01/09/19 07:00 01/09/19 07:00 Intake and Output: 01/09/19 01/09/19 06:59 18:59 Intake Total 300 Output Total 400 Balance -100 - Medications Medications: Current Medications Acetaminophen (Tylenol 325mg Tab) 650 mg PO Q6 PRN PRN Reason: Pain, Mild (1-3) Last Admin: 01/08/19 17:24 Dose: 650 mg Enoxaparin Sodium (Lovenox) 30 mg SC DAILY [facility] Last Admin: 01/01/19 09:00 Dose: 30 mg Insulin Human Regular (Novolin R) 0 unit SC [facility]; Protocol Last Admin: 01/09/19 12:06 Dose: Not Given Magnesium Oxide (Mag-Ox) 800 mg PO BID [facility] Last Admin: 01/09/19 11:12 Dose: 800 mg Methimazole (Tapazole) 20 mg PO Q8H [facility] Last Admin: 01/09/19 11:12 Dose: 20 mg Pantoprazole Sodium (Protonix Susp) 40 mg PO DAILY [facility] Last Admin: 01/09/19 11:12 Dose: 40 mg Potassium Chloride (K-Dur 20 Meq Er Tab) 40 meq PO BRK [facility] Last Admin: 01/09/19 09:00 Dose: 40 meq Propranolol HCl (Inderal) 30 mg PO Q8H [facility] Last Admin: 01/09/19 11:12 Dose: 30 mg Rosuvastatin Calcium (Crestor) 10 mg PO HS [facility] Last Admin: 01/08/19 21:42 Dose: 10 mg Spironolactone (Aldactone) 50 mg PO DAILY [facility] Last Admin: 01/09/19 11:12 Dose: 50 mg - Labs Labs: 01/07/19 06:53 01/08/19 07:35 PT 14.1 SECONDS (9.7-12.2) H 12/26/18 06:07 INR 1.3 12/26/18 06:07 APTT 32 SECONDS (21-34) 12/26/18 06:07 - Constitutional Appears: Non-toxic, Chronically Ill - Head Exam Head Exam: NORMOCEPHALIC - Eye Exam Eye Exam: absent: Scleral icterus - ENT Exam ENT Exam: Mucous Membranes Dry - Neck Exam Neck Exam: absent: Lymphadenopathy - Respiratory Exam Respiratory Exam: Decreased Breath Sounds - Cardiovascular Exam Cardiovascular Exam: REGULAR RHYTHM - GI/Abdominal Exam GI & Abdominal Exam: Distended, Soft - Rectal Exam Rectal Exam: Deferred - Exam Exam: NORMAL INSPECTION - Back Exam Back Exam: absent: CVA tenderness (L), CVA tenderness (R) - Neurological Exam Neurological Exam: Alert, Awake, CN II-XII Intact - Psychiatric Exam Psychiatric exam: Depressed - Skin Skin Exam: Dry Assessment and Plan (1) Fever Status: Acute (2) TANVI (acute kidney injury) Status: Acute (3) Cardiac arrest Status: Acute (4) Cardiomyopathy Status: Acute (5) Thyrotoxicosis Status: Acute - Assessment and Plan (Free Text) Assessment: observe off antibiotics for now
--- NOTE | 2019-01-09 13:45 | CP.PCM.PN ---
Subjective - Date & Time of Evaluation Date of Evaluation: 01/09/19 - Subjective Subjective: Patient seen and examined today No nausea No vomiting No fever No diarrhea No dizziness No shortness of breath Objective - Vital Signs/Intake and Output Vital Signs (last 24 hours): Temp Pulse Resp BP Pulse Ox 98.1 F 111 H 20 135/88 98 01/09/19 07:00 01/09/19 07:00 01/09/19 07:00 01/09/19 07:00 01/09/19 07:00 Intake and Output: 01/09/19 01/09/19 06:59 18:59 Intake Total 300 Output Total 400 Balance -100 - Medications Medications: Current Medications Acetaminophen (Tylenol 325mg Tab) 650 mg PO Q6 PRN PRN Reason: Pain, Mild (1-3) Last Admin: 01/08/19 17:24 Dose: 650 mg Enoxaparin Sodium (Lovenox) 30 mg SC DAILY [facility] Last Admin: 01/01/19 09:00 Dose: 30 mg Insulin Human Regular (Novolin R) 0 unit SC [facility]; Protocol Last Admin: 01/09/19 12:06 Dose: Not Given Magnesium Oxide (Mag-Ox) 800 mg PO BID [facility] Last Admin: 01/09/19 11:12 Dose: 800 mg Methimazole (Tapazole) 20 mg PO Q8H [facility] Last Admin: 01/09/19 11:12 Dose: 20 mg Pantoprazole Sodium (Protonix Susp) 40 mg PO DAILY [facility] Last Admin: 01/09/19 11:12 Dose: 40 mg Potassium Chloride (K-Dur 20 Meq Er Tab) 40 meq PO BRK [facility] Last Admin: 01/09/19 09:00 Dose: 40 meq Propranolol HCl (Inderal) 30 mg PO Q8H [facility] Last Admin: 01/09/19 11:12 Dose: 30 mg Rosuvastatin Calcium (Crestor) 10 mg PO HS [facility] Last Admin: 01/08/19 21:42 Dose: 10 mg Spironolactone (Aldactone) 50 mg PO DAILY [facility] Last Admin: 01/09/19 11:12 Dose: 50 mg - Labs Labs: 01/07/19 06:53 01/08/19 07:35 PT 14.1 SECONDS (9.7-12.2) H 12/26/18 06:07 INR 1.3 12/26/18 06:07 APTT 32 SECONDS (21-34) 12/26/18 06:07 - Constitutional Appears: Well - Head Exam Head Exam: ATRAUMATIC, NORMAL INSPECTION, NORMOCEPHALIC - Eye Exam Eye Exam: EOMI, Normal appearance, PERRL Pupil Exam: NORMAL ACCOMODATION, PERRL - ENT Exam ENT Exam: Mucous Membranes Moist, Normal Exam - Neck Exam Neck Exam: Full ROM, Normal Inspection. absent: Lymphadenopathy - Respiratory Exam Respiratory Exam: Decreased Breath Sounds - Cardiovascular Exam Cardiovascular Exam: REGULAR RHYTHM, +S1, +S2 - GI/Abdominal Exam GI & Abdominal Exam: Soft, Diminished Bowel Sounds - Rectal Exam Rectal Exam: Deferred - Neurological Exam Neurological Exam: Oriented x3 Assessment and Plan - Assessment and Plan (Free Text) Plan: labs reviewed vitals reivewed medications reviewed
--- NOTE | 2019-01-09 20:49 | PN ---
DATE: 01/09/2019 ENDOCRINOLOGY FOLLOWUP NOTE LOCATION: Room 662. SUBJECTIVE: This is a 48-year-old female with recent marked hyperthyroidism with supervening transient acute respiratory failure and since then has been extubated and has improved hemodynamically and clinically as noted thereof. Her glycemic levels are fluctuating but improved and the glucose values have ranged from 141 to 190 mg/dL. LABORATORY DATA: Her latest chemistries showed a BUN of 14, sodium 134, potassium 4.6, chloride 98, CO2 of 31, glucose 142 and creatinine 0.7. Her latest thyroxine levels are 10.7 with a free T4 of 1.67 and a TSH less than 0.02 as noted. ASSESSMENT AND PLAN: So at this time, we will continue the same modified medical therapy for hyperthyroid condition with Tapazole given as 20 mg every 8 hours as ordered. We will taper down eventually this current dosing to prepare her for outpatient radioactive iodine therapy. The TSH suppression can go on for 6 months or longer, until the patient is actually biochemically euthyroid for some months at this time. We will obtain serial chemistries and supplement accordingly as needed. We will follow. Linda Weaver MD
--- NOTE | 2019-01-09 22:35 | CP.PCM.PN ---
Subjective - Date & Time of Evaluation Date of Evaluation: 01/09/19 Time of Evaluation: 13:20 - Subjective Subjective: No cardiac complaints No fevers, chills, tremors No voluem overload Awake, alert Objective - Vital Signs/Intake and Output Vital Signs (last 24 hours): Temp Pulse Resp BP Pulse Ox 98.1 F 108 H 20 135/83 98 01/09/19 07:00 01/09/19 19:10 01/09/19 19:10 01/09/19 19:10 01/09/19 07:00 Intake and Output: 01/09/19 01/10/19 18:59 06:59 Intake Total 400 Output Total 500 Balance -100 - Medications Medications: Current Medications Acetaminophen (Tylenol 325mg Tab) 650 mg PO Q6 PRN PRN Reason: Pain, Mild (1-3) Last Admin: 01/08/19 17:24 Dose: 650 mg Enoxaparin Sodium (Lovenox) 30 mg SC DAILY [facility] Last Admin: 01/01/19 09:00 Dose: 30 mg Insulin Human Regular (Novolin R) 0 unit SC [facility]; Protocol Last Admin: 01/09/19 22:13 Dose: Not Given Magnesium Oxide (Mag-Ox) 800 mg PO BID [facility] Last Admin: 01/09/19 19:00 Dose: 800 mg Methimazole (Tapazole) 20 mg PO Q8H [facility] Last Admin: 01/09/19 19:00 Dose: 20 mg Pantoprazole Sodium (Protonix Susp) 40 mg PO DAILY [facility] Last Admin: 01/09/19 11:12 Dose: 40 mg Potassium Chloride (K-Dur 20 Meq Er Tab) 40 meq PO BRK [facility] Last Admin: 01/09/19 09:00 Dose: 40 meq Propranolol HCl (Inderal) 30 mg PO Q8H [facility] Last Admin: 01/09/19 19:45 Dose: 30 mg Spironolactone (Aldactone) 50 mg PO DAILY [facility] Last Admin: 01/09/19 11:12 Dose: 50 mg - Labs Labs: 01/07/19 06:53 01/08/19 07:35 PT 14.1 SECONDS (9.7-12.2) H 12/26/18 06:07 INR 1.3 12/26/18 06:07 APTT 32 SECONDS (21-34) 12/26/18 06:07 - Constitutional Appears: No Acute Distress - Head Exam Head Exam: ATRAUMATIC, NORMAL INSPECTION, NORMOCEPHALIC - Eye Exam Eye Exam: EOMI. absent: Scleral icterus - ENT Exam ENT Exam: Mucous Membranes Moist - Neck Exam Neck Exam: Normal Inspection - Respiratory Exam Respiratory Exam: Clear to Ausculation Bilateral, NORMAL BREATHING PATTERN - GI/Abdominal Exam GI & Abdominal Exam: Soft, Normal Bowel Sounds. absent: Tenderness - Extremities Exam Extremities Exam: absent: Calf Tenderness, Pedal Edema - Neurological Exam Neurological Exam: Alert, Awake Assessment and Plan - Assessment and Plan (Free Text) Assessment: Non compliant 48 y/o presented with Thyroid storm and Severe metabolic acidosis with TANVI probably ATN/Shock liver, Hyperkalemia: Acute respiratory failure due to above: requiring intubation Toxic/metobolic encepholopathy Likely metabolic/hypoxemic cardiac arrest manifested as profound bradycardia: requiring CPR to gain ROSC CT head 01/05/19: stable R. subdural hematoma Initial ECHO: directly viewed by me: mod-severe LV dysfunction global hypokinesia LVH RVE and moderate RV dysfunction Mild-mod inc in PASP dilated IVC and reduced compliance c/w inc JVP Mod TR, Mild MR, trace AI Grade 1 diastolic dysfunction PLAN: 48 year old female with respirtory failure now extubated more awake REPEAT ECHO SUGGESTS IMPROVEMENT OF LV FUNCTION TO NEAR NORMAL RANGE WITH IMPROVEMENT IN RV FUNCTION AND SIZE, MILD-MOD PULM HTN NOTED now HTN TANVI IMPROVED: monitor lytes Hyperthyroid on tapazole PLAN PROPRANALOL TO 30 Q8 AND TITRATE: Pulses improved to normal ranges CONT ALDACTONE
[2019-01-10] MEDS: (Novolin R) Insulin Human Regular 100 units/ml vial SC SCH ×3 (08:00→17:30)
--- NOTE | 2019-01-10 09:23 | CP.PCM.PN ---
Subjective - Date & Time of Evaluation Date of Evaluation: 01/10/19 Time of Evaluation: 09:22 - Subjective Subjective: Events reviewed Objective - Vital Signs/Intake and Output Vital Signs (last 24 hours): Temp Pulse Resp BP Pulse Ox 98.3 F 92 H 20 136/89 97 01/10/19 07:25 01/10/19 07:25 01/10/19 07:25 01/10/19 07:25 01/10/19 07:25 Intake and Output: 01/10/19 01/10/19 06:59 18:59 Intake Total 360 Output Total 1000 Balance -640 - Medications Medications: Current Medications Acetaminophen (Tylenol 325mg Tab) 650 mg PO Q6 PRN PRN Reason: Pain, Mild (1-3) Last Admin: 01/08/19 17:24 Dose: 650 mg Enoxaparin Sodium (Lovenox) 30 mg SC DAILY [facility] Last Admin: 01/01/19 09:00 Dose: 30 mg Insulin Human Regular (Novolin R) 0 unit SC [facility]; Protocol Last Admin: 01/10/19 08:00 Dose: Not Given Magnesium Oxide (Mag-Ox) 800 mg PO BID [facility] Last Admin: 01/09/19 19:00 Dose: 800 mg Methimazole (Tapazole) 20 mg PO Q8H [facility] Last Admin: 01/10/19 02:31 Dose: 20 mg Pantoprazole Sodium (Protonix Susp) 40 mg PO DAILY [facility] Last Admin: 01/09/19 11:12 Dose: 40 mg Potassium Chloride (K-Dur 20 Meq Er Tab) 40 meq PO BRK [facility] Last Admin: 01/09/19 09:00 Dose: 40 meq Propranolol HCl (Inderal) 30 mg PO Q8H [facility] Last Admin: 01/10/19 02:30 Dose: 30 mg Rosuvastatin Calcium (Crestor) 10 mg PO HS [facility] Spironolactone (Aldactone) 50 mg PO DAILY [facility] Last Admin: 01/09/19 11:12 Dose: 50 mg - Labs Labs: 01/07/19 06:53 01/08/19 07:35 PT 14.1 SECONDS (9.7-12.2) H 12/26/18 06:07 INR 1.3 12/26/18 06:07 APTT 32 SECONDS (21-34) 12/26/18 06:07 Assessment and Plan - Assessment and Plan (Free Text) Assessment: - Constitutional Appears: No Acute Distress - Head Exam Head Exam: ATRAUMATIC, NORMAL INSPECTION, NORMOCEPHALIC - Eye Exam Eye Exam: EOMI. absent: Scleral icterus - ENT Exam ENT Exam: Mucous Membranes Moist - Neck Exam Neck Exam: Normal Inspection - Respiratory Exam Respiratory Exam: Clear to Ausculation Bilateral, NORMAL BREATHING PATTERN - GI/Abdominal Exam GI & Abdominal Exam: Soft, Normal Bowel Sounds. absent: Tenderness - Extremities Exam Extremities Exam: absent: Calf Tenderness, Pedal Edema - Neurological Exam Neurological Exam: Alert, Awake Assessment and Plan - Assessment and Plan (Free Text) Assessment: Non compliant 48 y/o presented with Thyroid storm and Severe metabolic acidosis with TANVI probably ATN/Shock liver, Hyperkalemia: Acute respiratory failure due to above: requiring intubation Toxic/metobolic encepholopathy Likely metabolic/hypoxemic cardiac arrest manifested as profound bradycardia: requiring CPR to gain ROSC CT head 01/05/19: stable R. subdural hematoma Initial ECHO: directly viewed by me: mod-severe LV dysfunction global hypokinesia LVH RVE and moderate RV dysfunction Mild-mod inc in PASP dilated IVC and reduced compliance c/w inc JVP Mod TR, Mild MR, trace AI Grade 1 diastolic dysfunction PLAN: 48 year old female with respirtory failure now extubated more awake REPEAT ECHO SUGGESTS IMPROVEMENT OF LV FUNCTION TO NEAR NORMAL RANGE WITH IMPRO VEMENT IN RV FUNCTION AND SIZE, MILD-MOD PULM HTN NOTED now HTN TANVI IMPROVED: monitor lytes Hyperthyroid on tapazole PLAN PROPRANALOL TO 30 Q8 AND TITRATE: Pulses improved to normal ranges CONT ALDACTONE
[2019-01-10] MEDS: Magnesium Oxide 400 mg Tab UD PO SCH ×2 (09:41→18:17)
[2019-01-10] MEDS: Pantoprazole 40 mg Susp UD PO SCH (09:41)
[2019-01-10] MEDS: Potassium Chloride 20 mEq ER Tab PO SCH (09:41)
--- NOTE | 2019-01-10 16:35 | CP.PCM.PN ---
Subjective - Date & Time of Evaluation Date of Evaluation: 01/10/19 Time of Evaluation: 16:34 - Subjective Subjective: PATIENT SEEN AND EXAMINED AT THE BEDSIDE Objective - Vital Signs/Intake and Output Vital Signs (last 24 hours): Temp Pulse Resp BP Pulse Ox 98.3 F 92 H 20 136/89 97 01/10/19 07:25 01/10/19 07:25 01/10/19 07:25 01/10/19 07:25 01/10/19 07:25 Intake and Output: 01/10/19 01/10/19 06:59 18:59 Intake Total 360 Output Total 1000 Balance -640 - Medications Medications: Current Medications Acetaminophen (Tylenol 325mg Tab) 650 mg PO Q6 PRN PRN Reason: Pain, Mild (1-3) Last Admin: 01/08/19 17:24 Dose: 650 mg Enoxaparin Sodium (Lovenox) 30 mg SC DAILY [facility] Last Admin: 01/01/19 09:00 Dose: 30 mg Insulin Human Regular (Novolin R) 0 unit SC [facility]; Protocol Last Admin: 01/10/19 11:38 Dose: Not Given Magnesium Oxide (Mag-Ox) 800 mg PO BID [facility] Last Admin: 01/10/19 09:41 Dose: 800 mg Methimazole (Tapazole) 20 mg PO Q8H [facility] Last Admin: 01/10/19 10:30 Dose: 20 mg Pantoprazole Sodium (Protonix Susp) 40 mg PO DAILY [facility] Last Admin: 01/10/19 09:41 Dose: 40 mg Potassium Chloride (K-Dur 20 Meq Er Tab) 40 meq PO BRK [facility] Last Admin: 01/10/19 09:41 Dose: 40 meq Propranolol HCl (Inderal) 30 mg PO Q8H [facility] Last Admin: 01/10/19 11:34 Dose: 30 mg Rosuvastatin Calcium (Crestor) 10 mg PO HS [facility] Spironolactone (Aldactone) 50 mg PO DAILY [facility] Last Admin: 01/10/19 09:41 Dose: 50 mg - Labs Labs: 01/07/19 06:53 01/08/19 07:35 PT 14.1 SECONDS (9.7-12.2) H 12/26/18 06:07 INR 1.3 12/26/18 06:07 APTT 32 SECONDS (21-34) 12/26/18 06:07 Assessment and Plan - Assessment and Plan (Free Text) Assessment: PLACE UNDER THE SERVICE OF DR Lei BURCH AT THE [facility]----CALL FOR ADMITTING ORDER CONTINUE MEDICATION PER MED REC ACTIVITY TOLERATED AND FACILITY PROTOCOL CALL DR Lei BURCH FOR FURTHER ORDER
[2019-01-10 18:30] VITALS: BP 127/85; PULSE 105; TEMP 99; O2SAT 97
--- NOTE | 2019-01-10 18:43 | CP.PCM.PN ---
Subjective - Date & Time of Evaluation Date of Evaluation: 01/10/19 - Subjective Subjective: Patient seen and examined today No nausea, No vomiting, No fever, No diarrhea, No dizziness, No shortness of breath Objective - Vital Signs/Intake and Output Vital Signs (last 24 hours): Temp Pulse Resp BP Pulse Ox 99 F 105 H 20 127/85 97 01/10/19 18:28 01/10/19 18:28 01/10/19 18:28 01/10/19 18:28 01/10/19 18:28 Intake and Output: 01/10/19 01/10/19 06:59 18:59 Intake Total 360 Output Total 1000 Balance -640 - Medications Medications: Current Medications Acetaminophen (Tylenol 325mg Tab) 650 mg PO Q6 PRN PRN Reason: Pain, Mild (1-3) Last Admin: 01/08/19 17:24 Dose: 650 mg Enoxaparin Sodium (Lovenox) 30 mg SC DAILY [facility] Last Admin: 01/01/19 09:00 Dose: 30 mg Insulin Human Regular (Novolin R) 0 unit SC [facility]; Protocol Last Admin: 01/10/19 17:30 Dose: Not Given Magnesium Oxide (Mag-Ox) 800 mg PO BID [facility] Last Admin: 01/10/19 18:17 Dose: 800 mg Methimazole (Tapazole) 20 mg PO Q8H [facility] Last Admin: 01/10/19 18:17 Dose: 20 mg Pantoprazole Sodium (Protonix Susp) 40 mg PO DAILY [facility] Last Admin: 01/10/19 09:41 Dose: 40 mg Potassium Chloride (K-Dur 20 Meq Er Tab) 40 meq PO BRK [facility] Last Admin: 01/10/19 09:41 Dose: 40 meq Propranolol HCl (Inderal) 30 mg PO Q8H [facility] Last Admin: 01/10/19 18:17 Dose: 30 mg Rosuvastatin Calcium (Crestor) 10 mg PO HS [facility] Spironolactone (Aldactone) 50 mg PO DAILY [facility] Last Admin: 01/10/19 09:41 Dose: 50 mg - Labs Labs: 01/07/19 06:53 01/08/19 07:35 PT 14.1 SECONDS (9.7-12.2) H 12/26/18 06:07 INR 1.3 12/26/18 06:07 APTT 32 SECONDS (21-34) 12/26/18 06:07 - Constitutional Appears: Well - Head Exam Head Exam: ATRAUMATIC, NORMAL INSPECTION, NORMOCEPHALIC - Eye Exam Eye Exam: EOMI, Normal appearance, PERRL Pupil Exam: NORMAL ACCOMODATION, PERRL - ENT Exam ENT Exam: Mucous Membranes Moist, Normal Exam - Neck Exam Neck Exam: Full ROM, Normal Inspection. absent: Lymphadenopathy - Respiratory Exam Respiratory Exam: Decreased Breath Sounds - Cardiovascular Exam Cardiovascular Exam: REGULAR RHYTHM, +S1, +S2 - GI/Abdominal Exam GI & Abdominal Exam: Soft, Diminished Bowel Sounds - Rectal Exam Rectal Exam: Deferred - Neurological Exam Neurological Exam: Oriented x3 Assessment and Plan - Assessment and Plan (Free Text) Plan: medications reviewed aldactone crestor inderal k-dur lovenox mag-ox bovolin r protonix susp tapazole tylenol vitals and labs also reviewed
--- NOTE | 2019-01-10 21:20 | PN ---
DATE: 01/10/2019 ENDOCRINOLOGY FOLLOWUP NOTE LOCATION: Room 662. SUBJECTIVE: This is a 48-year-old female with recent overt thyrotoxicosis, presenting here with marked hyperthyroidism, noted both historically, clinically and biochemically and was given high-dose medical therapy for which she improved clinically and metabolically as noted thereof. LABORATORY DATA: Her glucose levels have also been fluctuating, but are improved and today's glucose values have ranged from 153 to 163 mg/dL. Her latest chemistry showed a BUN of 14, sodium 134, potassium 4.6, chloride 98, CO2 of 31, glucose 142, creatinine 0.7. Her latest thyroxine level is 10.7 with TSH of less than 0.02. ASSESSMENT AND PLAN: So at this time, since she is being scheduled for possible transfer to our rehab facility, we will titrate and lower her Tapazole medications down to 10 mg b.i.d. after meals as ordered. We will obtain serial chemistries and supplement accordingly as needed. We will also obtain serial thyroid studies and adjust the dose regimen accordingly. We will follow. Linda Weaver MD
--- NOTE | 2019-01-10 22:45 | CP.PCM.DIS ---
Provider - Provider Date of Admission: 12/21/18 02:44 Attending physician: Melani Nunez MD Consults: 12/21/18 06:13 Endocrinology Consult Routine Comment: Consulting Provider: Linda Weaver Consulting Physician: Linda Weaver Reason for Consult: ? thyroid storm, tsh <0.02 12/21/18 17:40 Cardiology Consult Routine Comment: Consulting Provider: Constantino Bah Consulting Physician: Constantino Bah Reason for Consult: elevated trops, s/p cardiac arrest 12/21/18 17:59 Physician Consult Routine Comment: Consulting Provider: Blaine Johnson Consulting Physician: Blaine Johnson Reason for Consult: critical care/pulm mx 12/23/18 13:00 Nephrology Consult Routine Comment: Consulting Provider: Darshan Call Consulting Physician: Darshan Call Reason for Consult: TANVI 12/24/18 17:29 Infectious Disease Consult Routine Comment: Consulting Provider: Familia Strange Consulting Physician: Familia Strange Reason for Consult: FEVER 12/25/18 13:01 General Surgery Consult Routine Comment: trach Consulting Provider: Mateo Bateman Jr. Consulting Physician: Mateo Bateman Jr. Reason for Consult: trach 12/25/18 13:02 Gastroenterology Consult Routine Comment: Consulting Provider: Crispin Blair Consulting Physician: Crispin Blair Reason for Consult: PEG in anoxic brain injury 12/25/18 13:07 Neurology Consult Routine Comment: Consulting Provider: Kacey Gill Consulting Physician: Kacey Gill Reason for Consult: anoxic brain injury 01/03/19 16:50 Physician Consult Routine Comment: Consulting Provider: Brandin Louise Consulting Physician: Brandin Louise Reason for Consult: SDH on CT Head Additional Comments: please call consult today Time Spent in preparation of Discharge (in minutes): 20 Diagnosis - Discharge Diagnosis (1) TANVI (acute kidney injury) Status: Acute (2) Abdominal pain Status: Acute Priority: High (3) Bronchitis Status: Acute (4) Cardiac arrest Status: Acute Priority: High (5) Cardiomyopathy Status: Acute Priority: High (6) Chest pain Status: Acute (7) Dysphagia Status: Acute (8) Fever Status: Acute (9) Headache Status: Acute (10) Hypertension Status: Acute (11) Hyperthyroidism Status: Acute (12) Hypokalemia Status: Acute (13) Moderate pulmonary arterial systolic hypertension Status: Acute Priority: High (14) Nausea Status: Acute (15) Sinus tachycardia Status: Acute (16) Thyrotoxicosis Status: Acute Priority: High Hospital Course - Lab Results Lab Results: Micro Results 01/04/19 14:32 Naris MRSA Culture - Final MRSA NOT DETECTED 01/02/19 16:41 Urine,Catheterized Urine Culture - Final No Growth (<1,000 CFU/ML) 12/24/18 18:04 Trachasp Gram Stain - Final 12/24/18 18:04 Trachasp Sputum Culture - Final No growth. 12/21/18 08:39 Blood Blood Culture - Final NO GROWTH AFTER 5 DAYS 12/21/18 08:39 Blood Blood Culture - Final NO GROWTH AFTER 5 DAYS 12/21/18 08:39 Blood Gram Stain - Final TEST NOT PERFORMED 12/22/18 11:57 Trachasp Gram Stain - Final 12/22/18 11:57 Trachasp Sputum Culture - Final No growth. 12/22/18 11:57 Stool Stool Culture - Final NO SALMONELLA, SHIGELLA OR CAMPYLOBACTER ISOLATED. 12/22/18 11:57 Urine,Perez Urine Culture - Final No Growth (<1,000 CFU/ML) 12/21/18 05:57 Nose MRSA Culture (Admit) - Final MRSA NOT DETECTED Most Recent Lab Values WBC 11.4 K/uL (4.8-10.8) H 01/07/19 06:53 RBC 4.32 Mil/uL (3.80-5.20) 01/07/19 06:53 Hgb 12.4 g/dL (11.0-16.0) 01/07/19 06:53 Hct 37.7 % (34.0-47.0) 01/07/19 06:53 MCV 87.2 fL (81.0-99.0) 01/07/19 06:53 MCH 28.6 pg (27.0-31.0) 01/07/19 06:53 MCHC 32.8 g/dL (33.0-37.0) L 01/07/19 06:53 RDW 13.9 % (11.5-14.5) 01/07/19 06:53 Plt Count 271 K/uL (130-400) 01/07/19 06:53 MPV 9.8 fL (7.2-11.7) 01/07/19 06:53 Neut % (Auto) 68.2 % (50.0-75.0) 01/07/19 06:53 Lymph % (Auto) 21.4 % (20.0-40.0) 01/07/19 06:53 Wells % (Auto) 8.2 % (0.0-10.0) 01/07/19 06:53 Eos % (Auto) 1.4 % (0.0-4.0) 01/07/19 06:53 Baso % (Auto) 0.8 % (0.0-2.0) 01/07/19 06:53 Neut # (Auto) 7.8 K/uL (1.8-7.0) H 01/07/19 06:53 Lymph # (Auto) 2.4 K/uL (1.0-4.3) 01/07/19 06:53 Wells # (Auto) 0.9 K/uL (0.0-0.8) H 01/07/19 06:53 Eos # (Auto) 0.2 K/uL (0.0-0.7) 01/07/19 06:53 Baso # (Auto) 0.1 K/uL (0.0-0.2) 01/07/19 06:53 PT 14.1 SECONDS (9.7-12.2) H 12/26/18 06:07 INR 1.3 12/26/18 06:07 APTT 32 SECONDS (21-34) 12/26/18 06:07 Puncture Site Rra 12/31/18 11:56 pCO2 38 mm/Hg (35-45) 12/31/18 11:56 pO2 143 mm/Hg (80-100) H 12/31/18 11:56 HCO3 28.5 mmol/L (21-28) H 12/31/18 11:56 ABG pH 7.48 (7.35-7.45) H 12/31/18 11:56 ABG Total CO2 29.5 mmol/L (22-28) H 12/31/18 11:56 ABG O2 Saturation 99.7 % (95-98) H 12/31/18 11:56 ABG Base Excess 4.6 mmol/L (-2.0-3.0) H 12/31/18 11:56 ABG Hemoglobin 11.8 g/dL (11.7-17.4) 12/31/18 11:56 ABG Carboxyhemoglobin 1.6 % (0.5-1.5) H 12/31/18 11:56 POC ABG HHb (Measured) 0.3 % (0.0-5.0) 12/31/18 11:56 ABG Methemoglobin 1.3 % (0.0-3.0) 12/31/18 11:56 Howard Test Po 12/31/18 11:56 ABG Potassium 2.9 mmol/L (3.6-5.2) L 12/27/18 05:13 A-a O2 Difference 38.0 mm/Hg 12/31/18 11:56 Respiratory Index 0.3 12/31/18 11:56 Hgb O2 Saturation 96.8 % (95.0-98.0) 12/31/18 11:56 Sodium 155.0 mmol/l (132-148) H 12/27/18 05:13 Chloride 122.0 mmol/L (98-107) H 12/27/18 05:13 Glucose 167 mg/dl (65-105) H 12/27/18 05:13 Lactate 1.0 mmol/L (0.7-2.1) 12/27/18 05:13 Liter Flow 3.0 12/31/18 11:56 Vent Mode Prvc 12/27/18 05:13 Mechanical Rate 20 12/27/18 05:13 FiO2 32.0 % 12/31/18 11:56 Tidal Volume 400 12/27/18 05:13 PEEP 5 12/27/18 05:13 Crit Value Called To 12/21/18 08:20 Crit Value Called By Kalyn,[employer] spanish teacher 12/21/18 08:20 Crit Value Read Back Y 12/21/18 08:20 Blood Gas Notified Time 825 12/21/18 08:20 Sodium 134 mmol/L (132-148) 01/08/19 07:35 Potassium 4.6 mmol/L (3.6-5.2) 01/08/19 07:35 Chloride 98 mmol/L (98-107) 01/08/19 07:35 Carbon Dioxide 31 mmol/L (22-30) H 01/08/19 07:35 Anion Gap 9 (10-20) L 01/08/19 07:35 BUN 14 mg/dL (7-17) 01/08/19 07:35 Creatinine 0.7 mg/dL (0.7-1.2) 01/08/19 07:35 Est GFR ( Amer) > 60 01/08/19 07:35 Est GFR (Non-Af Amer) > 60 01/08/19 07:35 POC Glucose (mg/dL) 191 mg/dL (65-110) H 01/10/19 16:34 Random Glucose 142 mg/dL (65-105) H 01/08/19 07:35 Calcium 9.1 mg/dl (8.6-10.4) 01/08/19 07:35 Phosphorus 3.6 mg/dL (2.5-4.5) 01/07/19 06:53 Magnesium 1.3 mg/dL (1.6-2.3) L 01/07/19 06:53 Total Bilirubin 0.6 mg/dL (0.2-1.3) 01/08/19 07:35 AST 31 U/L (14-36) 01/08/19 07:35 ALT 18 U/L (9-52) 01/08/19 07:35 Alkaline Phosphatase 86 U/L (38-126) 01/08/19 07:35 Total Creatine Kinase 50 U/L (30-135) 12/21/18 06:42 CK-MB (Mass) 2.69 ng/mL (0.0-3.38) 12/21/18 06:42 Troponin I 0.4120 ng/mL (0.00-0.120) H* 12/21/18 06:42 NT-Pro-B Natriuret Pep 459 pg/mL (0-450) H 12/21/18 01:30 Total Protein 7.2 g/dL (6.3-8.3) 01/08/19 07:35 Albumin 3.4 g/dL (3.5-5.0) L 01/08/19 07:35 Globulin 3.8 gm/dL (2.2-3.9) 01/08/19 07:35 Albumin/Globulin Ratio 0.9 (1.0-2.1) L 01/08/19 07:35 Lipase 31 U/L (23-300) 12/21/18 01:30 Procalcitonin 0.42 NG/ML (0.19-0.49) 12/26/18 06:05 Free T4 1.67 ng/dL (0.78-2.19) 01/08/19 07:35 Thyroxine (T4) 10.7 ug/dL (5.5-11.0) 01/08/19 07:35 Free T3 pg/mL > 22.80 pg/mL (2.77-5.27) H 12/21/18 10:04 Total T3 8.15 nmol/L (1.49-2.60) H 12/21/18 06:42 Thyroglobulin, Quant 492.3 ng/mL (2.8-40.9) H 12/21/18 07:15 TSH 3rd Generation < 0.02 mIU/L (0.46-4.68) L 01/08/19 07:35 Thyroid Stim Immunoglob >700 % baseline (<140) H 12/22/18 08:00 Cortisol AM Sample 19.7 ug/dL (4.46-22.7) 12/31/18 06:30 Arterial Blood Potassium 2.9 mmol/L (3.6-5.2) L 12/27/18 05:13 Urine Color Yellow (YELLOW) 01/02/19 16:41 Urine Clarity Clear (Clear) 01/02/19 16:41 Urine pH 5.0 (5.0-8.0) 01/02/19 16:41 Ur Specific [place] 1.010 (1.003-1.030) 01/02/19 16:41 Urine Protein Negative mg/dL (NEGATIVE) 01/02/19 16:41 Urine Glucose (UA) 3+ mg/dL (Normal) H 01/02/19 16:41 Urine Ketones Negative mg/dL (NEGATIVE) 01/02/19 16:41 Urine Blood Negative (NEGATIVE) 01/02/19 16:41 Urine Nitrate Negative (NEGATIVE) 01/02/19 16:41 Urine Bilirubin Negative (NEGATIVE) 01/02/19 16:41 Urine Urobilinogen Normal mg/dL (0.2-1.0) 01/02/19 16:41 Ur Leukocyte Esterase Neg Jyoti/uL (Negative) 01/02/19 16:41 Urine WBC (Auto) 7 /hpf (0-5) H 01/02/19 16:41 Urine RBC (Auto) 4 /hpf (0-3) H 01/02/19 16:41 Ur Squamous Epith Cells < 1 /hpf (0-5) 01/02/19 16:41 Hyaline Casts 3-5 /lpf (0-2) H 01/02/19 16:41 Urine HCG, Qual Negative (NEGATIVE) 12/26/18 06:06 Vancomycin Trough 36.7 ug/mL (5.0-10.0) H 12/23/18 16:30 Random Vancomycin 14.5 ug/mL 12/25/18 06:11 Urine Opiates Screen Negative (NEGATIVE) 12/21/18 09:22 Urine Methadone Screen Negative (NEGATIVE) 12/21/18 09:22 Ur Barbiturates Screen Negative (NEGATIVE) 12/21/18 09:22 Ur Phencyclidine Scrn Negative (NEGATIVE) 12/21/18 09:22 Ur Amphetamines Screen Negative (NEGATIVE) 12/21/18 09:22 U Benzodiazepines Scrn Negative (NEGATIVE) 12/21/18 09:22 U Oth Cocaine Metabols Negative (NEGATIVE) 12/21/18 09:22 U Cannabinoids Screen Negative (NEGATIVE) 12/21/18 09:22 Thyroperoxidase Ab >900 IU/mL (<9) H 12/22/18 08:00 Thyroglobulin Antibody <1 IU/mL (< OR = 1) 12/22/18 08:00 Hepatitis A IgM Ab Negative (NEGATIVE) 12/25/18 06:11 Hep Bs Antigen Negative (NEGATIVE) 12/25/18 06:11 Hep B Core IgM Ab Negative (NEGATIVE) 12/25/18 06:11 Hepatitis C Antibody Negative (NEGATIVE) 12/25/18 06:11 HIV 1&2 Antibody Screen Negative (NEGATIVE) 12/25/18 06:11 Influenza Typ A,B (EIA) Negative for flu a/b (NEGATIVE) 12/24/18 17:57 Ur L.pneumophila Ag Negative (NEGATIVE) 12/24/18 17:54 - Hospital Course Hospital Course: Patient seen and examined today No nausea, No vomiting, No fever, No diarrhea, No dizziness, No shortness of breath medications reviewed aldactone crestor inderal k-dur lovenox mag-ox bovolin r protonix susp tapazole tylenol vitals and labs also reviewed Patient admitted with a thyroid storm status post Endo given methimazole then cut down the dose as patient improved patient coded underwent EEG and all of the test patient was AAO came out to sd AO x3 patient was discharged to [facility] given all the reports and the details family agreed patient went to [facility] for further subacute rehab Discharge Exam - Head Exam Head Exam: ATRAUMATIC, NORMAL INSPECTION, NORMOCEPHALIC - Eye Exam Eye Exam: EOMI, Normal appearance, PERRL Pupil Exam: NORMAL ACCOMODATION, PERRL - ENT Exam ENT Exam: Mucous Membranes Moist - Neck Exam Neck exam: Full Rom, Normal Inspection - Respiratory Exam Respiratory Exam: Decreased Breath Sounds - Cardiovascular Exam Cardiovascular Exam: REGULAR RHYTHM, +S1, +S2 - GI/Abdominal Exam GI & Abdominal Exam: Normal Bowel Sounds - Rectal Exam Rectal Exam: Deferred - Exam Exam: NORMAL INSPECTION External exam: NORMAL EXTERNAL EXAM - Neurological Exam Neurological exam: Alert, CN II-XII Intact, Normal Gait, Oriented x3, Reflexes Normal - Psychiatric Exam Psychiatric exam: Normal Affect, Normal Mood - Skin Skin Exam: Dry, Intact, Normal Color, Warm Discharge Plan - Follow Up Plan Condition: CRITICAL Disposition: REHAB FACILITY/REHAB UNIT Instructions: Nausea and Vomiting, Adult (DC), Acute Kidney Failure (DC), Hyperthyroidism (Overactive Thyroid) (DC), Acute Abdominal Pain (DC), Acute Abdominal Pain (GEN), Acute Hemoptysis (DC), Hemoptysis (GEN) Additional Instructions: PLACE UNDER THE SERVICE OF DR Lei NUNEZ AT THE REHAB----CALL FOR ADMITTING ORDER CONTINUE MEDICATION PER MED REC ACTIVITY TOLERATED AND FACILITY PROTOCOL CALL DR Lei NUNEZ FOR FURTHER ORDER Referrals: Blaine Johnson MD [Staff Provider] - Constantino Bah MD [Staff Provider] - Familia Strange MD [Staff Provider] - Wally Nunez MD [Staff Provider] -
== END 2019-01-10 18:48 | DRG 566 ==
LOC: C.ER 00:53 → C.9I 02:44 → C.6T 01-04 14:46
PROVIDERS: ADMIT Internal Medicine Nephrology; ATTEND Internal Medicine Nephrology
PROC: 0BH17EZ Insertion of Endotracheal Airway into Trachea, Via Natural or Artificial Opening (ICD-10-PCS; principal; 2018-12-21)
PROC: 5A1955Z Respiratory Ventilation, Greater than 96 Consecutive Hours (ICD-10-PCS; 2018-12-21)
PROC: 06HY33Z Insertion of Infusion Device into Lower Vein, Percutaneous Approach (ICD-10-PCS; 2018-12-21)
PROC: 05HB33Z Insertion of Infusion Device into Right Basilic Vein, Percutaneous Approach (ICD-10-PCS; 2018-12-28)
DX: E05.01 Thyrotoxicosis with diffuse goiter with thyrotoxic crisis or storm (principal); G93.1 Anoxic brain damage, not elsewhere classified; I50.23 Acute on chronic systolic (congestive) heart failure; I46.9 Cardiac arrest, cause unspecified; J96.01 Acute respiratory failure with hypoxia; Z99.11 Dependence on respirator [ventilator] status; N17.9 Acute kidney failure, unspecified; R57.1 Hypovolemic shock; E87.0 Hyperosmolality and hypernatremia; E87.2 Acidosis; E87.5 Hyperkalemia; E87.6 Hypokalemia; I11.0 Hypertensive heart disease with heart failure; J98.11 Atelectasis; E86.0 Dehydration; E16.2 Hypoglycemia, unspecified; E78.5 Hyperlipidemia, unspecified; K02.9 Dental caries, unspecified; Z91.14 Patient's other noncompliance with medication regimen; I71.2 Thoracic aortic aneurysm, without rupture; E66.9 Obesity, unspecified